=== PATIENT | female | born 1990 | race Hispanic/Latino ===

== ENCOUNTER 2019-10-14 05:09 | Emergency (ER) | payer BC ==
--- OUTSIDE RECORDS SUMMARY | 2019-10-14 05:12 | XMS REPORT | Continuity of Care Document ---
:[address] [facility] t Address [address] [place] [address] Care Team Providers Name Role Phone Tito ELLIS Attending Clinician Unavailable Pob1, Care Clinic Attending Clinician Unavailable Arsenio Mata MD Attending Clinician Doctor Unassigned, Name Attending Clinician Unavailable Pob, Lab Main Attending Clinician Unavailable Problems Condition Condition Condition Status Onset Resolution Last Treating Co mments Source Name Details Category Date Date Treatment Clinician Date Diabetes Diabetes Problem Active [facility] Sinusitis Sinusitis Problem Active [facility] Posterior Posterior Problem Active [facility] rhinorrhea [facility] Nasal Nasal Problem Active [facility] obstructio [facility] Headache Headache Problem Active [facility] Allergies, Adverse Reactions, Alerts Allergy Allergy Status Severity Reaction(s) Onset Inactive Treating Comm ents Source Name Type Date Date Clinician Hydrocod Allergy Active [facility] Morphine Allergy Active [facility] Tramadol Allergy Active [facility] Social History Smoking Status Start Date Stop Date Source Never Smoker [facility] Medications Ordered Filled Start Stop Current Ordering Indication Dosage Frequency Signature Comments Components Source Medication Medication Date Date Medication? Clinician (SIG) Name Name amoxicillin amoxicillin No 1 Q12H amoxicilli [facility] 875 mg 875 mg n 875 mg da tablet Take tablet Take tablet Medical 1 tablet 1 tablet Take 1 Group every 12 every 12 tablet hours by hours by every 12 oral route oral route hours by with meals with meals oral route for 12 for 12 with meals days. days. for 12 days. cefdinir cefdinir No cefdinir [facility] 300 mg 300 mg 300 mg da capsule capsule capsule Medica l Group Fiasp Fiasp No Fiasp [facility] FlexTouch FlexTouch FlexTouch da U-100 U-100 U-100 Medical Insulin 100 Insulin 100 Insulin Group unit/mL (3 unit/mL (3 100 mL) mL) unit/mL (3 subcutaneou subcutaneou mL) s pen s pen subcutaneo us pen fluticasone fluticasone No fluticason [facility] propionate propionate e da 50 50 propionate Medical mcg/actuati mcg/actuati 50 G roup on nasal on nasal mcg/actuat spray,suspe spray,suspe ion nasal nsion nsion spray,susp ension Tresiba Tresiba No Tresiba [facility] FlexTouch FlexTouch FlexTouch da U-200 U-200 U-200 Medical insulin 200 insulin 200 insulin Group unit/mL (3 unit/mL (3 200 mL) mL) unit/mL (3 subcutaneou subcutaneou mL) s pen s pen subcutaneo us pen Ventolin Ventolin No Ventolin [facility] HFA 90 HFA 90 HFA 90 da mcg/actuati mcg/actuati mcg/actuat Medical on aerosol on aerosol ion Yoselin up inhaler inhaler aerosol inhaler zolpidem 5 zolpidem 5 No zolpidem 5 [facility] mg tablet mg tablet mg tablet [facility] Vital Signs Vital Name Observation Time Observation Value Comments Source BP Diastolic 2019-02-10 00:00:00 75 mm[Hg] [facility] Height 2019-02-10 00:00:00 63 [in_i] [facility] BMI (Body Mass 2019-02-10 00:00:00 25.7 kg/m2 [facility]) Group BP Systolic 2019-02-10 00:00:00 120 mm[Hg] [facility] Body Weight 2019-02-10 00:00:00 145.1 [lb_av] [facility] Procedures Procedure Date / Time Performed Performing Clinician Sourc e CT, sinuses, w/o 2019-02-10 00:00:00 Carlito molina contrast Group Sinus Surgery [facility] Plan of Care Planned Activity Planned Date Details Comments Source Instructions [facility] Encounters Start End Encounter Admission Attending Care Care Encounter Source Date/Time Date/Time Type Type Clinicians Facility Department ID 2019-10-14 2019-10-14 Telephone DANIEL Francis [id number] 00:00:00 00:00:00 Den [facility] [id number] [facility] [id number] 2019-10-12 2019-10-12 Urgent Pob1, Acute [place] [id number] 13:16:55 13:36:55 [facility] [id number] [place] [id number] Professio [id number] [facility] 0[address] Office Building One 2019-07-21 2019-07-21 Telephone Esperanza [facility] [id number] 00:00:00 00:00:00 Won[place] [id number] [place] [id number] Professio [phone] [facility] 044 Building 2019-07-20 2019-07-20 Orders Doctor DANIEL [id number] 00:00:00 00:00:00 Only Unassigned, [facility] [id number] [facility] [id number] 2019-05-27 2019-05-27 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 Xi Adc [facility] [id number] 08:50:43 09:05:43 Visit Lab Main [place] [id number] [place] [id number] Professio [phone] [place] [address] Building 2019-05-27 2019-05-27 Orders Doctor DANIEL [id number] 00:00:00 00:00:00 Only Unassigned, [facility] [id number] [facility] [id number] 2019-05-18 2019-05-18 Office Esperanza [facility] [id number] 11:12:41 11:41:53 Visit [facility] [id number] [place] [id number] [place] [phone] nal 044 Office Building One 2019-02-10 2019-02-10 [facility] [place] [facility] [id number] 00:00:00 00:00:00 MD Nathan: [address] - [address], Otolaryngol [place], [facility] [address] , Ph. Results This patient has no known results.
--- OUTSIDE RECORDS SUMMARY | 2019-10-14 05:13 | XMS REPORT | Summary of Care ---
:[address] [facility] Address [address] [place] [address] Care Team Providers Name Role Phone Arsenio Mata MD Primary Care Provider Reason for Visit Reason Comments Results Encounter Details Date Type Department Care Team Description 10/14/2019 Telephone [facility] Den Francis, RHONDA Results [address] [id number] [place] [address] Allergies Active Allergy Reactions Severity Noted Date Comments Adhesive Hives 06/17/2011 Hydrocodone Itching 09/18/2010 Morphine Itching, Shortness of 12/12/2009 Breath Sulfa (Sulfonamide Itching 07/15/2014 Antibiotics) Tramadol Itching 05/28/2011 documented as of this encounter (statuses as of 10/14/2019) Medications Medication Sig Dispensed Refills Start Date End Date Status flash glucose sensor 1 Each every 14 2 Kit 5 08/03/2018 Active (FREESTYLE JARET 14 DAY (fourteen) days. SENSOR) KitIndications: Use as directed Uncontrolled type 1 with reader. diabetes mellitus with hyperglycemia fluticasone propionate Use 2 Sprays in 16 g 0 12/10/2018 Active 50 mcg/actuation nasal each nostril sprayIndications: Acute daily. bacterial bronchitis, Acute bacterial sinusitis, Acute laryngitis FIASP FLEXTOUCH U-100 inject under the 0 Active INSULIN SC skin. TRESIBA FLEXTOUCH U-100 inject under the 0 Active SC skin. BELSOMRA 10 mg Take 1 tablet by 10 tablet 0 05/04/2019 Active TabIndications: mouth at bedtime. Disorder of initiating and maintaining sleep, Anxiety escitalopram oxalate 10 Take 1 tablet by 30 tablet 5 0 Active mg tabletIndications: mouth every Anxiety morning. STOP SERTRALINE. traZODone 50 mg Take 0.5-1 30 tablet 5 05/18/2019 Ac tive tabletIndications: tablets by mouth Chronic insomnia at bedtime. documented as of this encounter (statuses as of 10/14/2019) Active Problems Problem Noted Date Anxiety 05/04/2019 Iron deficiency anemia due to chronic blood loss 09/15 SVT (supraventricular tachycardia) 07/10/2015 Overview: Dr. 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 documented as of this encounter (statuses as of 10/14/2019) Resolved Problems Problem Noted Date Resolved Date Fever 07/10/2015 05/04/2019 Acidosis 01/02/2015 01/03/2015 Diabetic acidosis 01/02/2015 05/04/2019 Depression 07/15/2014 01/03/2015 Allergic rhinitis 07/15/2014 01/03/2015 Overview: ICD10 Diagnosis Term [employer] Abnormal LFTs 07/15/2014 01/03/2015 Overview: 03/2012 Elevated LFTs 08/20/2012 01/02/2015 Morbidly obese 02/11/2012 08/20/2012 Type II or unspecified type diabetes mellitus without mentio n 12/12/2009 04/28/2010 of complication, uncontrolled documented as of this encounter (statuses as of 10/14/2019) Immunizations Name Administration Dates Next Due Influenza Virus Vaccine Quad IM 3+ YRS 01/29/2018 documented as of this encounter Social History Tobacco Use Types Packs/Day Years Used Date Never Smoker Smokeless Tobacco: Never Used Alcohol Use Drinks/Week oz/Week Comments No 1 Standard drinks or equivalent 1.0 social Sex Assigned at Date Recorded Not on file Job Start Date Occupation Industry Not on file Not on file Not on file Travel History Travel Start Travel End No recent travel history available. COVID-19 Exposure Response Date Recorded In the last month, have you been in contact with Yes 10/12/2019 1:24 PM CDT someone who was confirmed or suspected to have Coronavirus / COVID-19? documented as of this encounter Last Filed Vital Signs Not on filedocumented in this encounter Plan of Treatment Health Maintenance Due Date Last Done Comments VARICELLA VACCINES (1 of 2 - 1989 2-dose childhood series) PNEUMOCOCCAL 0-64 YEARS COMBINED 1994 SERIES (1 of 1 - PPSV23) LDL-C 1998 URINE MICROALBUMIN 1998 DTaP,Tdap,and Td Vaccines (1 - 1999 Tdap) FOOT EXAM 2006 PAP SMEAR 2009 HgA1C 07/03/2015 01/02/2015, 12/07/2012 CREATININE (SERUM) 10/03/2019 10/02/2018, 10/30/2017, 01/08/2016, Additional history exists Depression Screening 12/11/2019 12/10/2018 INFLUENZA VACCINE (Season Ended) 2019 01/29/2018 EYE EXAM 07/19/2020 07/20/2019 documented as of this encounter Results Not on filedocumented in this encounter Insurance Payer Benefit Plan / Subscriber ID Effective Dates Phone Addre ss Type Group [facility] [id number] 2014-[employer] PPO/POS [employer] [facility] [employer] EMPLOYEE PLAN t documented as of this encounter Advance Directives Type Date Recorded Patient Hand Mica Plate Layer Explanati on Advance Directives and Living Will Power of Cellular Equipment Repairer
--- OUTSIDE RECORDS SUMMARY | 2019-10-14 05:13 | XMS REPORT | Summary of Care ---
:1990 Author Organization [facility] - [facility] Address [address] [place] [address] Care Team Providers Name Role Phone Arsenio Mata MD Primary Care Provider Reason for Visit Reason Comments Chills Cough Shortness of Breath Pain Joint Pain Headache Vomiting DIZZY Encounter Details Date Type Department Care Team Description 10/12/2019 Urgent Care [facility] Family Carlos Arriola, AUTO HAULER [address] [address] Viral upper respiratory tract infection (Primary Dx); [place] [address], Acute Care Clinic Suspected Covid-19 Virus Infection [address] [place] [address] Allergies Active Allergy Reactions Severity Noted Date Comments Adhesive Hives 06/17/2011 Hydrocodone Itching 09/18/2010 Morphine Itching, Shortness of 12/12/2009 Breath Sulfa (Sulfonamide Itching 07/15/2014 Antibiotics) Tramadol Itching 05/28/2011 documented as of this encounter (statuses as of 10/12/2019) Medications Medication Sig Dispensed Refills Start Date [...] as of this encounter (statuses as of 10/12/2019) Active Problems Problem Noted Date Anxiety 05/04/2019 Iron deficiency anemia due to chronic blood loss 09/15 SVT (supraventricular tachycardia) 07/10/2015 Overview: Dr. 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 Claudy Juarez and documented as of this encounter (statuses as of 10/12/2019) Resolved Problems Problem Noted Date Resolved Date Fever 07/10/2015 05/04/2019 Acidosis 01/02/2015 01/03/2015 Diabetic acidosis 01/02/2015 05/04/2019 Depression 07/15/2014 01/03/2015 Allergic rhinitis 07/15/2014 01/03/2015 Overview: ICD10 Diagnosis Term Caseworker Intake Utility Abnormal LFTs 07/15/2014 01/03/2015 Overview: 03/2012 Elevated LFTs 08/20/2012 01/02/2015 Morbidly obese 02/11/2012 08/20/2012 Type II or unspecified type diabetes mellitus without mentio n 12/12/2009 04/28/2010 of complication, uncontrolled documented as of this encounter (statuses as of 10/12/2019) Immunizations Name Administration Dates Next Due Influenza [...] of this encounter Last Filed Vital Signs Vital Sign Reading Time Taken Comments Blood Pressure 113/80 10/12/2019 1:26 PM CDT Pulse 115 10/12/2019 1:26 PM CDT Temperature 37.4 C (99.3 F) 10/12/2019 1:26 PM CDT Respiratory Rate 17 10/12/2019 1:26 PM CDT Oxygen Saturation 99% 10/12/2019 1:26 PM CDT Inhaled Oxygen Concentration - - Weight 78.6 kg (173 lb 4 oz) 10/12/2019 1:26 PM CDT Height - - Body Mass Index 30.69 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 It's caused by a new (novel) coronavirus called SARS-CoV-2. There are many types of coronavirus. Coronaviruses are a very common cause of bronchitis. They may sometimes cause lung infection (pneumonia). Symptoms can range from mild to severe respiratory illness. These viruses are also found in some animals. COVID-19 was first found in people in [facility], in late 2018.COVID-19 is a rapidly-emerging infectious disease. This means thatscientists are actively researching it.There are information updates regularly. Public health officials are working to find the source. How the virus spreads is not yet fully understood, but it seems to spread and infect people fairly easily. Some people who have been infected in an area may be unsure how or where they became infected. The virus may be spread through droplets of fluid that a person coughs or sneezes into the air. It may be spread if you touch a surface with virus on it, such as a handle or object, and then touch your eyes, nose, or mouth. For the latest information, visit the CDC website at www.cdc.gov/coronavirus/2019-ncov. Or call 541-XAK-QAZA (836-368-8079). What are the symptoms of COVID-19? Some people have no symptoms or mild symptoms. Symptoms may appear 2 to 14 days after contact with the virus. Symptoms can include: Fever Coughing Trouble breathing What are possible complications from COVID-19? In many cases, this virus can cause infection (pneumonia) in both lungs. In some cases, this can cause . Certain people are at higher risk for complications. This includes older adults and people with serious chronic health conditions such as heart or lung disease or diabetes. How is COVID-19 diagnosed? Your healthcare provider will ask about your symptoms. He or she will also ask about your recent travel and contact with sick people. If your healthcare provider thinks you may have COVID-19, he or shewill work closely with your local health department on testing. Follow all instructions from your healthcare provider. COVID-19 is diagnosed by: Nose and throat swab. A cotton-tipped swab is wiped inside your nose or throat. This is done to check for viruses in your nasal mucus. Sputum culture. A small sample of mucus coughed from your lungs (sputum) is collected if you havea cough. It's checked for the virus. How is COVID-19 treated? There is currently no medicine to treat the virus. Treatment is done to help your body while it fights the virus. This is known as supportive care. Supportive care may include: Getting rest. This helps your body fight the illness. Staying hydrated. Drink 6 to 8 glasses of liquids every day. Good choices are water, sport drinks, soft drinks without caffeine, juices, tea, and soup. Taking pain medicine. These may include acetaminophen and ibuprofen. They are used to help ease pain and reduce fever. Follow your healthcare provider's instructions. For severe illness, you may need to stay in the hospital. Care during severe illness may include: IV (intravenous) fluids. These are given through a vein to help keep your body hydrated. Oxygen. Supplemental oxygen or ventilation with a breathing machine (ventilator) may be given. This is done so you get enough oxygen in your body. Are you at risk for COVID-19? You are at risk for infection if youve been to a place where people have been sick with this virus or if there are people with COVID-19 in your area. You are at risk if you: Recently traveled to an area with a COVID-19 outbreak Had contact with a sick person who recently traveled to an area with a COVID- 19 outbreak Had contact with a person who was diagnosed with or who may have COVID-19 How can COVID-19 be prevented? There is no vaccine yet. The best prevention is to not have contact with the virus. The CDC advises that people should not travel to areas where there are COVID-19 outbreaks right now for any reason that is not urgent. For the most current CDC travel advisories, visit the CDC website at www.cdc.gov/cor onavirus/2019-ncov/travelers. To help prevent spreading the infection, wash your hands often, or use an alcohol-based hand sandwich and drink cart operator. The CDC advises that you should not wear a facemask if you are not sick. Prepare and protect yourself from COVID-19: Wash your hands often with soap and clean, running water for at least 20 seconds. If you don't have access to soap and water, use an alcohol-based hand sandwich and drink cart operator often. Make sure it has at least 60% alcohol. Don't touch your eyes, nose, or mouth unless you have clean hands. As much as possible, don't touch "high-touch" public surfaces such as doorknobs. Don't shake hands. Clean home and work surfaces often with disinfectant. Cough or sneeze into a tissue, then throw the tissue into the trash. If you don't have tissues, cough or sneeze into the bend of your elbow. Stay informed about COVID-19 in your area. Follow local instructions about being in public. Be aware of events in your community that may be postponed or canceled such as school and sporting events.You may be advised not to attend public gatherings. You will be advised to stay about 6 feet from others as much as possible. This is called "social distancing." The CDC advises wearing a cloth face mask in public. During a public health emergency, medical face masks may be reserved for healthcare workers. You may need to make a cloth face mask of your own. You can do this using a bandana, T- shirt, or other cloth. The [facility] hasinstructions on how to make a mask. Check your home supplies. Consider keeping a 2-week supply of medicines, food, and other needed household items. Make a plan for childcare, work, and ways to stay in touch with others. Know who will help you ifyou get sick. Don't be around people who are sick. There is no evidence right now that animals spread SARS-CoV-2. But it's always a good idea to wash your hands after touching any animals. Don't touch animals that may be sick. Dont share eating or drinking utensils with sick people. Dont kiss someone who is sick. If you were in an area with COVID-19 in the last 14 days: Call your healthcare provider and follow all instructions. Your activities and where you go may be restricted for up to 2 weeks. You may be directed to stay home, or "self-quarantine." Take your temperature every morning and evening for at least 14 days. This is to check for fever.Keep a record of the readings. Watch for symptoms of the virus. Call your provider if you have symptoms. Call your provider first before going to any clinic or hospital. Stay home if you are sick for any reason. If you are sick with COVID-19 symptoms: Stay home. Call your healthcare provider and tell them you have symptoms of COVID-19. Do this before going to any hospital or clinic. Follow your provider's instructions. You may be advised to isolate yourself at home. This is called self-isolation . Dont panic. Keep in mind that other illnesses can cause similar symptoms. Stay away from work, school, and public places. Limit physical contact with family members. Limitvisitors. Don't kiss anyone or share eating or drinking utensils. Clean surfaces you touch with disinfectant. This is to help prevent the virus from spreading. Cough or sneeze into a tissue, then throw away the tissue in the trash. If you don't have tissues, cough or sneeze into the bend of your elbow. Wear a facemask only if you have symptoms If you need to go in to a hospital or clinic, expect that the healthcare staff will wear protective equipment such as masks, gowns, gloves, and eye protection. You may be put in a separate room. This is to prevent the possible virus from spreading. Tell the healthcare staff about recent travel. This includes local travel on public transport. Staff may need to find other people you have been in contact with. Follow all instructions the healthcare staff give you. If you have been diagnosed with COVID-19 Stay home. Dont leave your home unless you need to get medical care. Don't go to work, school,or public areas. Don't use public transportation or taxis. Follow all instructions from your healthcare provider. Call your healthcare providers office before going. They can prepare and give you instructions. This will help prevent the virus from spreading. If you need to go to a hospital or clinic, expect that the healthcare staff will wear protective equipment such as masks, gowns, gloves, and eye protection. You may be put in a separate room. This is to prevent the possible virus from spreading. Wear a face mask. This is to protect other people from your germs. If you are not able to wear a mask, your caregivers should. Stay away from other people in your home. Limit contact with pets and animals. Although there are no reports of pets getting sick with COVID-19, consider limiting contact with pets until more is known. Dont share household items or food. Cover your face with a tissue when you cough or sneeze. Throw the tissue away. Then wash your hands. Wash your hands often. If you are caring for a sick person: Follow all instructions from healthcare staff. Wash your hands often. Wear protective clothing as advised. Make sure the sick person wears a mask. If they can't wear a mask, don't stay in the same room with the person. If you must be in the same room, wear a facemask. Keep track of the sick persons symptoms. Clean surfaces, fabrics, and laundry thoroughly. Keep other people and pets away from the sick person. When to call your healthcare provider Call your healthcare provider right away: If youve recently traveled or have been in an area with COVID-19 and have symptoms If you have been diagnosed with COVID-19 and your symptoms are worse Date last modified: 07/26/2019 Michelle vela reviewed this educational content on 04/21/201919997279-2013 The [employer]. [address] [place] [id number]. All rights reserved. This information is not intended as a substitute for professional medical care. Always follow your healthcare professional's instructions. documented in this encounter Progress Notes Chris Wilkinson PA-C - 10/12/2019 1:20 PM CDT COVID-19 Screening Clinic: [facility] Patient Name: Lilibeth Sharif Date of : 1990 29 year old Primary Care Physician: Haritha Mata During this visit: Full PPE was used, mask, face shield, gown, and gloves Chief Complaint Chief Complaint Patient presents with Chills Cough Shortness of Breath Pain Joint Pain Headache Vomiting DIZZY HPI 2 days h/o chills, cough, sob, vomiting. Here for covid testing. Not sob now. Past Medical History / Immunizations Past Medical History: Diagnosis Date ADHD (attention deficit hyperactivity disorder) Anxiety 05/04/2019 Diabetes Insomnia 07/15/2014 Migraine headache PCOS (polycystic ovarian syndrome) SVT (supraventricular tachycardia) 2015 ablation August [address] 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 Michel--[facility] SINUS SURGERY PROC UNLISTED 2011 Allergies Allergies Allergen Reactions Adhesive Hives Hydrocodone Itching Morphine Itching and Shortness of Breath Sulfa (Sulfonamide Antibiotics) Itching Tramadol Itching Review of Systems Review of Systems Constitutional: Positive for chills. Negative for activity change and appetite change. Respiratory: Positive for shortness of breath (intermittent). Negative for chest tightness. Gastrointestinal: Positive for nausea and vomiting. Negative for abdominal pain. Musculoskeletal: Positive for myalgias. Negative for neck stiffness. Skin: Negative for pallor and rash. Neurological: Positive for headaches. Physical Exam BP 113/80 | Pulse 115 | Temp 37.4 C (99.3 F) | Resp 17 | Wt 173 lb 4 oz (78.6 kg) | SpO2 99% | BMI 30.69 kg/m Physical Exam Constitutional: She appears well-developed and well-nourished. HENT: Head: Normocephalic. Right Ear: Tympanic membrane and ear canal normal. Left Ear: Tympanic membrane and ear canal normal. Nose: Mucosal edema present. Mouth/Throat: Uvula is midline, oropharynx is clear and moist and mucous membranes are normal. Cardiovascular: Normal rate and regular rhythm. Pulmonary/Chest: Effort normal and breath sounds normal. Skin: Skin is warm and dry. Nursing note and vitals reviewed. Labs No results found for this or any previous visit (from the past 24 hour(s)). No results found. Orders and Treatments Orders Placed This Encounter Procedures COVID-19 (PCR MOLECULAR TESTING) Outpatient Encounter Medications as of 10/12/2019 Medication Sig TRESIBA FLEXTOUCH U-100 SC inject under the skin. escitalopram oxalate 10 mg tablet Take 1 tablet by mouth every morning. STOP SERTRALINE. traZODone 50 mg tablet Take 0.5-1 tablets by mouth at bedtime. BELSOMRA 10 mg Tab Take 1 tablet by mouth at bedtime. FIASP FLEXTOUCH U-100 INSULIN SC inject under the skin. fluticasone propionate 50 mcg/actuation nasal spray Use 2 Sprays in each nostril daily. flash glucose sensor (FREESTYLE JARET 14 DAY SENSOR) Kit 1 Each every 14 (fourteen) days. Use asdirected with reader. No results found for this visit on 10/12/19. Diagnosis Patient well appearing, NAD noted on exam Patient speaking in complete sentences on exam. Physical exam otherwise unremarkable Vital signs WNL Lilibeth was seen today for chills, cough, shortness of breath, pain, headache, vomiting and dizzy. Diagnoses and all orders for this visit: Suspected Covid-19 Virus Infection - COVID-19 (PCR MOLECULAR TESTING); Future - COVID-19 (PCR MOLECULAR TESTING) uri Disposition & Follow Up - Discussed likely viral diagnosis and treatment plan with pt. - pt advised on frequent effective handwashing - pt advised to increase fluid intake - advised to have the pt take OTC to treat symptoms. - Pt advised to administer Tylenol as per label recommendation as needed for pain or fever - AVS and Written/handout materials appropriate to problem and teaching provided. - advised to go to the nearest Emergency Department sooner for any new, worsening, persistent, or concerning symptoms - Patient verbalized understanding of all instructions EDUCATION: Handouts given: "What to do if you are sick with COVID-19" CDC information guide reviewed with the patient and handout given to patient Education given to self quarantine until results are back. Will notify patient with results. Patient states understanding and all questions answered. Plan of care, goals and medications discussed with patient. Patient voices understanding. Barriers to care: none Ability to manage care: good This visit did not involve counseling and coordination that comprised more than 50% of the visit time. Chris Wilkinson PA-C 10/12/2019 1:35 PM Mone Grimes MA - 10/12/2019 1:20 PM CDT Pt is c/o Chief Complaint Patient presents with Chills Cough Shortness of Breath Pain Joint Pain Headache Vomiting DIZZY All vitals taken. Allergies reviewed. All medications reviewed. Fall risk assessed. Pain 0/10. Accompanied by herself. Patient educated on plan of care for visit, swabbing technique, risks and benefits of test and length of time to receive results. Verbal consent obtained to perform test. CDC Fact Sheet for PatientsnCoV Diagnostic Panel dated 07/04/2019 provided. documented in this encounter Plan of Treatment Name Type Priority Associated Diagnoses Order S chedule COVID-19 (PCR MOLECULAR LAB Routine Suspected Covid-1 9 Virus Expected: 10/12/2019, TESTING) Infection Expires: 2020 Health Maintenance Due Date Last Done Comments [...] Results Not on filedocumented in this encounter Visit Diagnoses Diagnosis Viral upper respiratory tract infection - Primary Acute upper respiratory infections of un specified site Suspected Covid-19 Virus Infection documented in this encounter Insurance Payer Benefit Plan / Subscriber ID Effective Dates Phone Addre ss Type Group [facility] [id number] 2014-[place] PPO/POS [facility] EM[employer]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
[2019-10-14] MEDS ORDERED: ONDANSETRON 4 MG/2 ML VIAL ONE (06:27)
[2019-10-14] MEDS ORDERED: NA CHLORIDE 0.9% 2,000 ML ONE (06:27)
[2019-10-14 06:32] LABS: Absolute Lymphocytes (CBC) 2.2 K/uL (0.7-4.9); Basophils % 0.7 % (0-1.3); Hematocrit 40.6 % (36.0-45.0); Lymphocytes % 28.7 % (15.3-44.8); MPV 12.2 fL (7.6-11.3)
[2019-10-14 06:59] LABS: ALT/SGPT 20 U/L (12-78); AST/SGOT 9 U/L (15-37); Albumin 3.7 g/dL (3.4-5.0); Alkaline Phosphatase 107 U/L (45-117); BUN Blood Urea Nitrogen 16 mg/dL (7-18); Bicarbonate 25 mmol/L (21-32); Bilirubin Direct 0.1 mg/dL (0-0.2); Bilirubin Total 0.3 mg/dL (0.2-1.0); Glucose Level 246 mg/dL (74-106); Lipase 112 U/L (73-393); Magnesium 2.1 mg/dL (1.8-2.4); Potassium 3.8 mmol/L (3.5-5.1); Protein, Total 7.1 g/dL (6.4-8.2); Sodium Level 137 mmol/L (136-145); Troponin (Emerg Dept Use Only) < 0.02 ng/mL (0.0-0.045)
--- NOTE | 2019-10-14 07:05 | ER ---
Nurse's Notes [facility] Name: Lilibeth Sharif Age: 29 yrs Sex: Female : 1990 Arrival Date: 10/14/2019 Time: 05:11 Bed 2 Private MD: Diagnosis: Type 1 diabetes mellitus;Vomiting Presentation: 10/13 05:18 Chief complaint: Patient states: High blood sugar reading the last 3-4 days; vomiting lp1 that began 2 days ago; concerned about DKA, feeling short of breath at times. Coronavirus screen: Proceed with normal triage. Ebola Screen: No symptoms or risks identified at this time. Risk Assessment: Do you want to hurt yourself or someone else? Patient reports no desire to harm self or others. Onset of symptoms was October 14, 2019. 05:18 Method Of Arrival: Ambulatory lp1 05:18 Acuity: JAMISON 3 lp1 05:22 Initial Sepsis Screen: Does the patient meet any 2 criteria? No. Patient's initial lp1 sepsis screen is negative. Does the patient have a suspected source of infection? No. Patient's initial sepsis screen is negative. 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 - Social history:: Smoking status: Patient denies any tobacco usage or history of. - Family history:: not pertinent. Screenin:21 Abuse screen: Denies threats or abuse. Denies injuries from another. Nutritional lp1 screening: No deficits noted. Tuberculosis screening: No symptoms or risk factors identified. Fall Risk None identified. Assessment: 05:30 General: Appears in no apparent distress. comfortable, Behavior is calm, cooperative, rr5 appropriate for age. 05:30 Pain: Denies pain. Neuro: Level of Consciousness is awake, alert, obeys commands, rr5 Oriented to person, place, time, situation. Cardiovascular: Capillary refill < 3 seconds Patient's skin is warm and dry. Respiratory: Airway is patent Respiratory effort is even, unlabored, Respiratory pattern is regular, symmetrical. GI: Abdomen is round Reports nausea, vomiting, sugar high. : No signs and/or symptoms were reported regarding the genitourinary system. EENT: No signs and/or symptoms were reported regarding the EENT system. Derm: Skin is intact, is healthy with good turgor, Skin temperature is warm. Musculoskeletal: Circulation, motion, and sensation intact. Capillary refill < 3 seconds. 06:46 Reassessment: Patient appears in no apparent distress at this time. Patient is alert, rr5 oriented x 3, equal unlabored respirations, skin warm/dry/pink. awaiting for results. 07:10 General: Appears in no apparent distress. comfortable, well developed, Behavior is sv calm, cooperative, appropriate for age. Pain: Denies pain. Neuro: Level of Consciousness is awake, alert, obeys commands, Oriented to person, place, time, situation, Moves all extremities. Full function. Respiratory: Respiratory effort is even, unlabored, Respiratory pattern is regular, symmetrical. Derm: Skin is pink, warm \T\ dry. 07:53 Reassessment: Pt up for discharge but still receiving 2L NS boluses at this time, needs sv to finish fluids. 08:59 Reassessment: Patient appears in no apparent distress at this time. Patient and/or sv family updated on plan of care and expected duration. Pain level reassessed. Patient is alert, oriented x 3, equal unlabored respirations, skin warm/dry/pink. Patient states feeling better. Patient states symptoms have improved. Vital Signs: 05:22 BP 114 / 75; Pulse 94; Resp 18; Temp 98.6(TE); Pulse Ox 100% on R/A; Weight 74.84 kg lp1 (R); Height 5 ft. 3 in. (160.02 cm); Pain 0/10; 06:46 BP 100 / 80; Pulse 74; Resp 16; Pulse Ox 99% ; rr5 08:51 BP 94 / 60; Pulse 86; Resp 21; Pulse Ox 100% ; sv 05:22 Body Mass Index 29.23 (74.84 kg, 160.02 cm) lp1 ED Course: 05:11 Patient arrived in ED. cl3 05:19 Triage completed. lp1 05:21 Arm band placed on left wrist. lp1 05:29 Den Estrada MD is Attending Physician. michel 05:49 Jeremiah Armstrong, RN is Primary Nurse. rr5 06:00 Patient has correct armband on for positive identification. Placed in gown. Bed in low rr5 position. Call light in reach. Side rails up X2. gambling monitor on. Pulse ox on. NIBP on. 06:25 No provider procedures requiring assistance completed. Urine collected: clean catch rr5 specimen, clear. 06:35 Inserted saline lock: 20 gauge in left antecubital area, using aseptic technique. Blood rr5 collected. 06:43 EKG done, by ED staff. rr5 06:48 XRAY Chest (1 view) In Process Unspecified. EDMS 07:44 Primary Nurse role handed off by Jeremiah Armstrong, RN rr5 07:53 Mone Reyna, RHONDA is Primary Nurse. sv 08:59 IV discontinued, intact, bleeding controlled, No redness/swelling at site. Pressure sv dressing applied. Administered Medications: 06:40 Drug: NS 0.9% 1000 ml Route: IV; Rate: 1 bolus; Site: left antecubital; rr5 08:58 Follow up: Response: No adverse reaction; IV Status: Completed infusion; IV Intake: sv 1000ml 06:41 Drug: NS 0.9% 1000 ml Route: IV; Rate: 1 bolus; Site: left antecubital; rr5 08:58 Follow up: Response: No adverse reaction; IV Status: Completed infusion; IV Intake: sv 1000ml 06:41 Drug: Zofran (Ondansetron) 4 mg Route: IVP; Site: left antecubital; rr5 07:00 Follow up: Response: No adverse reaction sv Intake: 08:58 IV: 1000ml; Total: 1000ml. sv 08:58 IV: 1000ml; Total: 2000ml. sv Outcome: 07:04 Discharge ordered by . michel 08:59 Patient left the ED. sv 08:59 Discharged to home ambulatory. sv 08:59 Condition: stable 08:59 Condition: improved 08:59 Discharge instructions given to patient, Instructed on discharge instructions, follow up and referral plans. medication usage, Demonstrated understanding of instructions, follow-up care, medications, Prescriptions given X 1. Signatures: Dispatcher [employer] Mone Flores, RN RN Den Gonzalez MD MD cha Pena, Laura, RN RN lp1 Jeremiah Armstrong RN RN rr5 Rylie Alvarado cl3 Corrections: (The following items were deleted from the chart) 05:23 05:22 Pulse 83bpm; Resp 18bpm; Pulse Ox 100% RA; Temp 98.6F Temporal; 74.84 kg lp1 Reported; Height 5 ft. 3 in.; BMI: 29.2; Pain 0/10; lp1
--- NOTE | 2019-10-14 07:05 | EDPHYS ---
Physician Documentation [facility] Name: Lilibeth Sharif Age: 29 yrs Sex: Female : 1990 Arrival Date: 10/14/2019 Time: 05:11 Bed 2 Private MD: ED Physician Den Estrada HPI: 10/13 06:15 This 29 yrs old Female presents to ER via Ambulatory with complaints of Dka. michel 06:15 The patient presents with abdominal pain. Onset: The symptoms/episode began/occurred 2 michel day(s) ago. The symptoms do not radiate. Associated signs and symptoms: Pertinent positives: nausea and vomiting. The symptoms are described as crampy. Modifying factors: The symptoms are alleviated by nothing, the symptoms are aggravated by nothing. Severity of pain: At its worst the pain was mild in the emergency department the pain is unchanged. The patient has not experienced similar symptoms in the past. 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 - Social history:: Smoking status: Patient denies any tobacco usage or history of. - Family history:: not pertinent. ROS: 06:15 Constitutional: Negative for fever, chills, and weight loss, Eyes: Negative for injury, michel pain, redness, and discharge, ENT: Negative for injury, pain, and discharge, Neck: Negative for injury, pain, and swelling, Cardiovascular: Negative for chest pain, palpitations, and edema, Respiratory: Negative for shortness of breath, cough, wheezing, and pleuritic chest pain, Abdomen/GI: Negative for abdominal pain, nausea, vomiting, diarrhea, and constipation, Back: Negative for injury and pain, : Negative for injury, bleeding, discharge, and swelling, MS/Extremity: Negative for injury and deformity, Skin: Negative for injury, rash, and discoloration, Neuro: Negative for headache, weakness, numbness, tingling, and seizure, Psych: Negative for depression, anxiety, suicide ideation, homicidal ideation, and hallucinations, Allergy/Immunology: Negative for hives, rash, and allergies, Endocrine: Negative for neck swelling, polydipsia, polyuria, polyphagia, and marked weight changes, Hematologic/Lymphatic: Negative for swollen nodes, abnormal bleeding, and unusual bruising. Exam: 06:15 Constitutional: This is a well developed, well nourished patient who is awake, alert, michel and in no acute distress. Head/Face: Normocephalic, atraumatic. Eyes: Pupils equal round and reactive to light, extra-ocular motions intact. Lids and lashes normal. Conjunctiva and sclera are non-icteric and not injected. Cornea within normal limits. Periorbital areas with no swelling, redness, or edema. ENT: Nares patent. No nasal discharge, no septal abnormalities noted. Tympanic membranes are normal and external auditory canals are clear. Oropharynx with no redness, swelling, or masses, exudates, or evidence of obstruction, uvula midline. Mucous membranes moist. Neck: Trachea midline, no thyromegaly or masses palpated, and no cervical lymphadenopathy. Supple, full range of motion without nuchal rigidity, or vertebral point tenderness. No Meningismus. Chest/axilla: Normal chest wall appearance and motion. Nontender with no deformity. No lesions are appreciated. Cardiovascular: Regular rate and rhythm with a normal S1 and S2. No gallops, murmurs, or rubs. Normal PMI, no JVD. No pulse deficits. Respiratory: Lungs have equal breath sounds bilaterally, clear to auscultation and percussion. No rales, rhonchi or wheezes noted. No increased work of breathing, no retractions or nasal flaring. Abdomen/GI: Soft, non-tender, with normal bowel sounds. No distension or tympany. No guarding or rebound. No evidence of tenderness throughout. Back: No spinal tenderness. No costovertebral tenderness. Full range of motion. Skin: Warm, dry with normal turgor. Normal color with no rashes, no lesions, and no evidence of cellulitis. MS/ Extremity: Pulses equal, no cyanosis. Neurovascular intact. Full, normal range of motion. Neuro: Awake and alert, GCS 15, oriented to person, place, time, and situation. Cranial nerves II-XII grossly intact. Motor strength 5/5 in all extremities. Sensory grossly intact. Cerebellar exam normal. Normal gait. Psych: Awake, alert, with orientation to person, place and time. Behavior, mood, and affect are within normal limits. 06:58 ECG was reviewed by the Attending Physician. michel 07:02 Abdomen/GI: Inspection: abdomen appears normal, Bowel sounds: normal, Palpation: michel nontender, Liver: no appreciated palpable abnormalities, Hernia: not appreciated. 07:02 Musculoskeletal/extremity: DVT Exam: No signs of deep vein thrombosis. no pain, no swelling, no tenderness, negative Homans' sign noted on exam, no appreciated bluish discoloration, no erythema, no increased warmth. Vital Signs: 05:22 BP 114 / 75; Pulse 94; Resp 18; Temp 98.6(TE); Pulse Ox 100% on R/A; Weight 74.84 kg lp1 (R); Height 5 ft. 3 in. (160.02 cm); Pain 0/10; 06:46 BP 100 / 80; Pulse 74; Resp 16; Pulse Ox 99% ; rr5 08:51 BP 94 / 60; Pulse 86; Resp 21; Pulse Ox 100% ; sv 05:22 Body Mass Index 29.23 (74.84 kg, 160.02 cm) lp1 MDM: 05:29 Patient medically screened. [facility] 06:16 Data reviewed: vital signs, nurses notes, lab test result(s), EKG, radiologic studies, michel plain films. 10/13 06:10 Order name: Basic Metabolic Panel; Complete Time: 07:01 [facility] 10/13 06:10 Order name: CBC with Diff; Complete Time: 07:01 [facility] 10/13 06:10 Order name: LFT's; Complete Time: 07:01 [facility] 10/13 06:10 Order name: Magnesium; Complete Time: 07:01 [facility] 10/13 06:10 Order name: Troponin (emerg Dept Use Only); Complete Time: 07:01 [facility] 10/13 06:10 Order name: Lipase; Complete Time: 07:01 [facility] 10/13 06:10 Order name: XRAY Chest (1 view) [facility] 10/13 06:10 Order name: ABG [facility] 10/13 06:18 Order name: Glucose, Ancillary Testing; Complete Time: 07:01 EDMS 10/13 06:47 Order name: Urine Dipstick--Ancillary (enter results) 10/13 06:47 Order name: Urine --Ancillary (enter results) 10/13 06:10 Order name: EKG; Complete Time: 06:11 [facility] 10/13 06:10 Order name: Cardiac monitoring; Complete Time: 06:43 [facility] 10/13 06:10 Order name: EKG - Nurse/Tech; Complete Time: 06:42 [facility] 10/13 06:10 Order name: IV Saline Lock; Complete Time: 06:42 [facility] 10/13 06:10 Order name: Labs collected and sent; Complete Time: 06:42 [facility] 10/13 06:10 Order name: O2 Per Protocol; Complete Time: 06:42 [facility] 10/13 06:10 Order name: O2 Sat Monitoring; Complete Time: 06:42 [facility] 10/13 06:11 Order name: Urine Dipstick-Ancillary (obtain specimen); Complete Time: 06:18 [facility] 10/13 06:11 Order name: Urine Test (obtain specimen); Complete Time: 06:18 [facility] EC:58 Rate is 76 beats/min. Rhythm is regular. QRS [place] is Normal. OR interval is normal. QRS michel interval is normal. QT interval is normal. No Q waves. T waves are Normal. No ST changes noted. Clinical impression: Normal ECG and No evidence of ischemia. Interpreted by me. Reviewed by me. Administered Medications: 06:40 Drug: NS 0.9% 1000 ml Route: IV; Rate: 1 bolus; Site: left antecubital; rr5 08:58 Follow up: Response: No adverse reaction; IV Status: Completed infusion; IV Intake: sv 1000ml 06:41 Drug: NS 0.9% 1000 ml Route: IV; Rate: 1 bolus; Site: left antecubital; rr5 08:58 Follow up: Response: No adverse reaction; IV Status: Completed infusion; IV Intake: sv 1000ml 06:41 Drug: Zofran (Ondansetron) 4 mg Route: IVP; Site: left antecubital; rr5 07:00 Follow up: Response: No adverse reaction sv Disposition: 10/14/19 07:04 Discharged to Home. Impression: Type 1 diabetes mellitus, Vomiting. - Condition is Stable. - Discharge Instructions: Type 1 Diabetes Mellitus, Diagnosis, Adult, Nausea and Vomiting, Adult, Nausea and Vomiting, Adult, [id number], Diabetes Mellitus and Food, Type 1 Diabetes Mellitus, Self Care, Adult, Type 1 Diabetes Mellitus, Diagnosis, Adult, [id number], Type 1 Diabetes Mellitus, Self Care, Adult, [id number]. - Prescriptions for Zofran 4 mg Oral Tablet - take 1 tablet by ORAL route every 12 hours As needed; 20 tablet. - Medication Reconciliation Form, Thank You Letter, Antibiotic Education, Prescription Opioid Use form. - Follow up: Private Physician; When: 2 - 3 days; Reason: Recheck today's complaints, Continuance of care, Re-evaluation by your physician. - Problem is new. - Symptoms have improved. Signatures: Dispatcher [employer] EDMone Gomez RN RN sv Anderson, Corey, MD MD cha Pena, Laura RN RN lp1 Jeremiah Armstrong RN RN rr5 Corrections: (The following items were deleted from the chart) 08:59 07:04 10/14/2019 07:04 Discharged to Home. Impression: Type 1 diabetes mellitus; sv Vomiting. Condition is Stable. Forms are Medication Reconciliation Form, Thank You Letter, Antibiotic Education, Prescription Opioid Use. Follow up: Private Physician; When: 2 - 3 days; Reason: Recheck today's complaints, Continuance of care, Re-evaluation by your physician. Problem is new. Symptoms have improved. michel
[2019-10-14 07:18] LABS: Blood Gas Oxyhemoglobin 95.9 % (94-97); Blood O2 Saturation 97.9 % (92-98.5)
[2019-10-14 08:25] LABS: Urine Blood NEGATIVE (NEG); Urine Glucose 2+ (NEG); Urine Protein TRACE (NEG); Urine pH 7.5 (5.0-7.0)
--- NOTE | 2019-10-14 09:02 | RAD REPORT ---
EXAM DESCRIPTION: RAD - Chest Single View - 10/14/2019 6:47 am CLINICAL HISTORY: ABDOMINAL DISTENTION Chest pain. COMPARISON: CHEST SINGLE VIEW dated 12/07/2010 FINDINGS: Portable technique limits examination quality. The lungs are grossly clear. The heart is normal in size. No displaced fractures. IMPRESSION: No acute intrathoracic process suspected.
[2019-10-14 09:30] VITALS: TEMP 98.6
[2019-10-14 09:33] VITALS: BP 94/60; O2SAT 100
--- NOTE | 2019-10-15 06:50 | EKG ---
Test Date: 2019-10-14 Test Time: 06:38:08 Yam Curer: RR MEASUREMENT RESULTS: Intervals: Rate: 76 IA: 140 QRSD: 84 QT: 376 QTc: 423 [place]: P: 66 IA: 140 QRS: 91 T: 54 INTERPRETIVE STATEMENTS: Normal sinus rhythm Rightward axis Borderline ECG Compared to ECG 10/30/2015 09:24:50 Right-axis deviation now present Sinus tachycardia no longer present Electronically Signed On 10-15-19 06:48:07 CDT by Priyank Suarez
== END 2019-10-14 08:59 | disposition home or self-care (01) ==
LOC: ER 05:09
DX: R11.2 Nausea with vomiting, unspecified (principal); E10.9 Type 1 diabetes mellitus without complications; Z79.4 Long term (current) use of insulin; Z88.2 Allergy status to sulfonamides; Z88.5 Allergy status to narcotic agent
CPT/HCPCS: 96361; 93005; 85025; 80048; 36415; 83735; 81025; 82947; 80076; 81003; 84484; 83690; 71045; 82805; 96374; 99284; J7030; J2405

== ENCOUNTER 2020-07-27 07:24 | Emergency (ER) | payer BC ==
--- OUTSIDE RECORDS SUMMARY | 2020-07-27 07:27 | XMS REPORT | Continuity of Care Document ---
:1990 Author Organization [facility] t Address [address] [place] [address] Care Team Providers Name Role Phone Doctor Unassigned, Name Attending Clinician Unavailable Pob, Lab Main Attending Clinician Unavailable Provider, Urgent Care Attending Clinician Unavailable Only, Test Attending Clinician Unavailable Esperanza VELASCO, A Attending Clinician Payers Payer Name Policy Type Policy Number Effective Date Expiration Date S ource Problems Condition Condition Condition Status Onset Resolution Last Treating Co mments Source Name Details Category Date Date Treatment Clinician Date General General Problem Active [place] finding of Finding of 10-19 [facility] Housekeep observatio Observatio 00:00: Pr actic n of n of 00 e patient Patient Finding Finding Problem Active [place] related to Related to 05-20 [facility] sleep Sleep 00:00: Practic 00 e Psoriasis Psoriasis Problem Active 2017-04 Luan gillian 04-21 Family 00:00: Practic 00 e Overweight Overweight Problem Active [place] [facility] 6-22 Family 00:00: Practic 00 e Hypoglycem Hypoglycem Problem Active 2016-04 [facility] ia ia 0-10 Family 00:00: Practic 00 e Vitamin D Vitamin D Problem Active 2016-04 Luan french deficiency Deficiency 0-10 Fa anjelica 00:00: Practic 00 e Megaloblas Megaloblas Problem Active 2016-04 [facility] tic anemia tic Anemia 0-10 Fa anjelica due to Due to 00:00: Practic vitamin Vitamin 00 e B>12< B>12< deficiency Deficiency Anemia Anemia Problem Active 2016-04 Village 0-10 Family 00:00: Practic 00 e Insulin Insulin Problem Active 2016-[address] [facility] pump Pump 0-10 Family present Present 00:00: Practic 00 e Long-term Long-term Problem Active 2016-04 Luan french current Current 0-10 Family use of Use of 00:00: Practic insulin Insulin 00 e Cardiovasc Cardiovasc Problem Active 2016-04 [place] jewel holloway 0-10 Family measuremen Measuremen 00:00: Pr actic t - t - 00 e finding Finding Clinical Clinical Problem Active 2016-04 Feliciano russel finding Finding 0-10 Family 00:00: Practic 00 e Type 1 Type 1 Problem Active 2016-[address] [facility] diabetes Diabetes 0-10 Family mellitus Mellitus 00:00: Practi c without without 00 e complicati Complicati on on Diabetes Diabetes Problem Active [place] mellitus [...] ents Source Name Type Date Date Clinician Sulfa DA Active U 2019-04 [facility] (Sulfona -16 [facility] Antibiot [facility] [facility] [place] morphine DA Active U 2019-04 [facility] -[facility] [place] hydrocod DA Active U 2019-04 [facility] one -16 [facility] 00[facility] [place] fluconaz DA Active U 2019-04 [facility] ole -16 [facility] [place] tramadol DA Active U 2019-04 [facility] 1-16 [facility] [place] adhesive DA Active MO 2017- [facility] 4-20 [facility] [place] Sulfa DA Active OR [facility] (Sulfona 4-18 [facility] mide 00:00: [facility]ospita Antibiot 00 l of ics) [place] morphine DA Active SV 2017- [facility] 4-18 [facility] 00:[facility]: [facility] [place] hydrocod DA Active OR [facility] one 4-18 [facility] 00:[facility]: [facility] [place] tramadol DA Active OR 2016- [facility] 4-18 [facility] [place] Morphine Allergy Active [place] [facility] Tramadol Allergy Active [place] [facility] Hydrocod Allergy Active Hives [place] one to Family substanc Practic e e MORPHINE Allergy Active [place] SULFATE to Family substanc Practic e e Sulfacet Allergy Active [facility]ives [place] amide to Family substanc Practic e e TRAMADOL Allergy Active [facility] HCL to Family substanc Practic e e Trulicit Allergy Active Village y to Family substanc Practic e e Social History Smoking Status Start Date Stop Date Source Never Smoker [facility] Family P ractice Medications Ordered Filled Start Stop Current Ordering Indication Dosage Frequency Signature Comments Components Source Medication Medication Date Date Medication? Clinician (SIG) Name Name cephalexin cephalexin No cephalexin [facility] 500 mg 500 mg 500 mg Family capsule capsule capsule Practi c e DEX[facility] [address] CGM CGM CGM Family Practic e Dex[facility] 3device [address] Sensor Sensor (s) Sensor Family device Take device Take device Practic 3 devices 3 devices Take 3 e every month every month devices by miscell. by miscell. every route. route. month by miscell. route. [facility] [address] Transmitter Transmitter Transmitte Family device device r device Practic e diclofenac diclofenac No diclofenac [facility] sodium 75 sodium 75 sodium 75 Family mg mg mg Practic tablet,lucy tablet,lucy tablet,del e yed release yed release ayed release escitalopra escitalopra No escitalopr [facility] m 10 mg m 10 mg am 10 mg Famil y tablet tablet tablet Practic e Fiasp U-100 Fiasp U-100 No Fiasp [facility] Insulin 100 Insulin 100 U-100 Family unit/mL unit/mL Insulin Practi c subcutaneou subcutaneou 100 e s solution s solution unit/mL Inject 80 Inject 80 subcutaneo units every units every us day by day by solution subcutaneou subcutaneou Inject 80 s route as s route as units directed. directed. every day by subcutaneo us route as directed. fluticasone fluticasone No fluticason [facility] propionate propionate e Fam arthur 50 50 propionate Practic mcg/actuati mcg/actuati 50 e on nasal on nasal mcg/actuat spray,suspe spray,suspe ion nasal nsion nsion spray,susp ension Moni 24 Moni 24 No Moni [address] [facility] Fe 1 mg-20 Fe 1 mg-20 Fe 1 mg-20 Family mcg (24)/75 mcg (24)/75 mcg P ractic mg (4) mg (4) (24)/75 mg e tablet tablet (4) tablet ibuprofen ibuprofen No ibuprofen [facility] 600 mg 600 mg 600 mg Family tablet tablet tablet Practic e Injectafer Injectafer No Injectafer [facility] Family Practic e methocarbam methocarbam No methocarba [facility] ol 500 mg ol 500 mg mol 500 mg Family tablet tablet tablet Practic e Ozempic Ozempic No .5mg Q1W Ozempic Vill[place] e 0.25 mg or 0.25 mg or 0.25 mg or Family 0.5 mg (2 0.5 mg (2 0.5 mg (2 Practic mg/1.5 mL) mg/1.5 mL) mg/1.5 mL) e subcutaneou subcutaneou subcutaneo s pen s pen us pen injector injector injector Inject 0.5 Inject 0.5 Inject 0.5 mg every mg every mg every week by week by week by subcutaneou subcutaneou subcutaneo s route. s route. us route. sertraline sertraline No sertraline [facility] 25 mg 25 mg 25 mg Family tablet tablet tablet Practic e t:slim X2 t:slim X2 No t:slim X2 [facility] subcutaneou subcutaneo Family s cartridge s cartridge us P ractic cartridge e Taclonex Taclonex No Taclonex Luan gillian 0.005 0.005 0.005 Family %-0.064 % %-0.064 % %-0.064 % Practic topical topical topical e ointment ointment ointment APPLY TO APPLY TO APPLY TO THE THE THE AFFECTED AFFECTED AFFECTED AREA(S) BY AREA(S) BY AREA(S) BY TOPICAL TOPICAL TOPICAL ROUTE ONCE ROUTE ONCE ROUTE ONCE DAILY DAILY DAILY terconazole terconazole No terconazol [facility] 0.8 % 0.8 % e 0.8 % [facility] vaginal vaginal vaginal Practi c cream cream cream e tinidazole tinidazole No tinidazole [facility] 500 mg 500 mg 500 mg Family tablet tablet tablet Practic e Tresiba Tresiba No Tresiba [place] e FlexTouch FlexTouch FlexTouch Family U-200 U-200 U-200 Practic insulin 200 insulin 200 insulin e unit/mL (3 unit/mL (3 200 mL) mL) unit/mL (3 subcutaneou subcutaneou mL) s pen GIve s pen GIve subcutaneo 28 units in 28 units in us pen AM and AM and GIve 28 increase as increase as units in directed: directed: AM and TDD 50 TDD 50 increase as directed: TDD 50 [facility] 10set(s [facility] Infusion Infusion ) Infusion Fam arthur Set 23" Set 23" Set 23" Practi c Take 10 Take 10 Take 10 e sets every sets every sets every month by month by month by miscell. miscell. miscell. route. route. route. Vitamin D Vitamin D No Vitamin D [facility] Family Practic e Zofran 4 mg Zofran 4 mg No 2 BID Zofran 4 Village tablet Take tablet Take mg tablet Family 2 tablets 2 tablets Take 2 Pra ctic twice a day twice a day tablets e by oral by oral twice a route. route. day by oral route. acetaminoph acetaminoph No acetaminop [place] en 300 en 300 hen 300 Family mg-codeine mg-codeine mg-codeine Practic 30 mg 30 mg 30 mg e tablet tablet tablet Baqsimi 3 Baqsimi 3 No 1spray( Baqsimi 3 Village mg/actuatio mg/actuatio s) mg/actuati Family n nasal n nasal on nasal Pract ic spray Take spray Take spray Take e 1 spray as 1 spray as 1 spray as needed by needed by needed by nasal nasal nasal route. route. route. BD BD No 5needle Q1D BD Village Ultra-Fine Ultra-Fine (s) Ultra-Fine Family Dorita Pen Dorita Pen Dorita Pen Pra ctic Needle 32 Needle 32 Needle 32 e gauge x gauge x gauge x " Take " Take " Take 5 needles 5 needles 5 needles every day every day every day by miscell. by miscell. by route as route as miscell. directed. directed. route as directed. amoxicillin amoxicillin No 1 Q12H amoxicilli [place] [...] mg tablet mg tablet [facility] Immunizations Ordered Immunization Filled Immunization Date Status Commen ts Source Name Name SARS-COV-2 SARS-COV-2 2020-05-22 Completed [facility] (COVID-19) vaccine, (COVID-19) vaccine, 00:00:00 Practice UNSPECIFIED UNSPECIFIED influenza, influenza, 2020-01-20 Completed [facility] injectable, injectable, 00:00:00 Practice quadrivalent quadrivalent tetanus toxoid, tetanus toxoid, 2015-04-21 Completed [facility] Family adsorbed adsorbed 00:00:00 Practice Vital Signs Vital Name Observation Time Observation Value Comments Source BP Diastolic 2020-07-14 00:00:00 77 mm[Hg] [facility] Height 2020-07-14 00:00:00 63 [in_i] [facility] BMI (Body Mass 2020-07-14 00:00:00 32.8 kg/m2 [facility] Family Index) Practice BP Systolic 2020-07-14 00:00:00 108 mm[Hg] [facility] Body Weight 2020-07-14 00:00:00 185 [lb_av] [facility] BP Diastolic 2020-04-11 00:00:00 68 mm[Hg] [facility] Height 2020-04-11 00:00:00 63 [in_i] [facility] BMI (Body Mass 2020-04-11 00:00:00 31.4 kg/m2 [facility] e Family Index) Practice BP Systolic 2020-04-11 00:00:00 118 mm[Hg] [facility] Body Weight 2020-04-11 00:00:00 177 [lb_av] [facility] BP Diastolic 2019-02-10 00:00:00 75 mm[Hg] [facility] Height 2019-02-10 00:00:00 63 [in_i] [facility] BMI (Body Mass 2019-02-10 00:00:00 25.7 kg/m2 [facility] Index) Group BP Systolic 2019-02-10 00:00:00 120 mm[Hg] [facility] Body Weight 2019-02-10 00:00:00 145.1 [lb_av] [facility] Procedures Procedure Date / Time Performing Clinician Source Performed Hysterectomy (Total) 2019-06-20 00:00:00 [facility] CT, sinuses, w/o 2019-02-10 00:00:00 [facility] Laparoscopic Sleeve 2015-09-20 00:00:[address] [facility] Gastrectomy Practice Sinus Surgery Carlito Gu l Group Plan of Care Planned Activity Planned Date Details Comments Source Diagnostic Test 2020-07-14 hemoglobin A1C, Jose L Palma amily Pending 00:00:00 fingerstick [code = Practice hemoglobin A1C, fingerstick] Diagnostic Test 2020-07-14 glucose, Jose L Fami ly Pending 00:00:00 fingerstick, blood Practice [code = glucose, fingerstick, blood] Diagnostic Test 2020-07-14 microalbumin/creatin Vill age Family Pending 00:00:00 ine, mass ratio, Practice urine [code = microalbumin/creatin ine, mass ratio, urine] Diagnostic Test 2020-07-14 lipid panel, serum [place] [facility] Family Pending 00:00:00 [code = lipid panel, Practic e serum] Diagnostic Test 2020-07-14 CMP, serum or plasma [facility] age Family Pending 00:00:00 [code = CMP, serum Practice or plasma] Diagnostic Test 2020-07-14 CBC w/ auto diff [facility] Pending 00:00:00 [code = CBC w/ auto Practice diff] Diagnostic Test 2020-07-14 TSH, serum or plasma [facility] Family Pending 00:00:00 [code = TSH, serum Practice or plasma] Diagnostic Test 2020-07-14 T4, free, serum [facility] Louie hermosillo Pending 00:00:00 [code = T4, free, Practice serum] Future Appointment 2020-10-14 Claudy Grey [facility] mague Family 00:00:[id number]; [address], [place] [address] Instructions Carlito rizo Group Encounters Start End Encounter Admission Attending Care Care Encounter Source Date/Time Date/Time Type Type Clinicians Facility Department ID 2020-07-25 2020-07-25 Orders Doctor SANCHEZ [id number] 00:00:00 00:00:00 Only Unassigned, MADHU [id number] [place] [facility] [id number] 2020-07-24 2020-07-24 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 [id number] 14:03:59 14:18:59 Visit Lab Main [place] [id number] [place] [id number] Professio [phone] [facility] 353 Building 2020-07-14 2020-07-14 Claudy [facility] [place] - [id number] V illage 00:00:00 00:00:[address] [facility] Family [facility] Practi edith VELASCO: [id number] [facility], [address], [place] [address] , Ph. 2020-05-28 2020-05-28 Urgent Provider, [facility] [id number] 17:04:02 17:24:02 Care [facility] [id number] Care [place] [id number] Professio [phone] [place] [address] Office [address] One 2020-05-15 2020-05-15 Fish Hatchery Worker Xi [facility] [id number] 15:04:50 15:19:50 Visit Lab Main [place] [id number] [place] [id number] Professio [phone] [facility] 353 [facility] 2020-05-15 2020-05-15 Orders Doctor DANIEL [id number] 00:00:00 00:00:00 Only Unassigned, MADHU [id number] [place] [facility] [id number] [id number] 2020-05-05 2020-05-05 Laboratory Only, [facility] [id number] 14:37:30 14:52:30 Only Test [place] [id number] [place] [id number] [place] [phone] 353 2020-04-11 2020-04-11 Claudy [facility] [place] - [id number] V illage 00:00:00 00:00:[address] [facility] Family [facility] Pract[facility] edith VELASCO: [id number] [facility], [place] [address], [place] [address] , Ph. 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 1.2.840.114 [id number] 08:33:57 08:48:57 Visit Lab Main [place] [id number] [place] [id number] Professio [phone] [address] 2020-02-01 2020-02-01 Orders Doctor DANIEL [id number] 00:00:00 00:00:00 Only Unassigned, MADHU [id number] [facility] [id number] [id number] [id number] 2020-01-13 2020-01-[address] [facility] [id number] 14:54:12 15:28:24 Visit [facility] [id number] [place] [id number] Professio [phone] [place] [address] Office [address] One 2020-01-03 2020-01-[address] [facility] [id number] 13:16:48 14:12:27 Visit [facility] [id number] [place] [id number] Professio [phone] [place] [address] Office Building One 2019-02-10 2019-02-10 Timmy [facility] [place] - [id number] [facility] 00:00:00 00:00:00 MD Nathan: [address] Group [facility] - [address], Otolaryngol [facility] [address] , Ph. Results Test Description Test Time Test Comments Results Result Comments Source ENDOMETRIUM,BIOPSY 2020-03-09 16:42:00 Test Item Value Reference Range Interpretation Comme nts ENDOMETRIUM,BIOPSY RUN DATE: (test code = 03/09/20 [facility] PAGE 1 RUN TIME: 538 ENDOMETBX) Specim en Inquiry RUN USER: INTERFACE PATIENT: SIDNEY ROBERTSON LOC: AIMEE #: [id number] AGE/SX: ROOM: [facility] RE03/07/20REG DR: Mikki Scott MD : 86 BED: A DIS: STATUS: DIS Jack TLOC: SPEC #: [id number] RECD: STATUS: CHELSEA HAWKINS #: [id number] EARLE: 03/08/20- SUBM DR: Mikki Scott MD ENTERED: 03/08/20 SP TYPE: ENDOMETBX [facility] DR: ORDERED: LEVEL IV CODES: D10907 - ENDOMETRIUM, NO PROCEDURES: LEVEL IV (Incomplete) TISSUES: ENDOMETRIUM, NOS - MULTIPLE SPECIMEN CLINICAL HISTORY 29 year old, pelvic pain (k r) FINAL DIAGNOSIS Left anterior culdesac endometriosis, excision: peritoneal tissue with focal fibrosis Left pelvic sidewall endometriosis #1, excision: endometrios is Left pelvic sidewall endometriosis #2, excision: endometriosis Left joe rosacral endometriosis, excision: endometriosis Posterior cervix endometriosis, 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 Right pelvic sidewall endometriosis, excision: endometrios is Uterus, bilateral fallopian tubes, hysterectomy and bilateral salpingectomy: cervix - chronic papillary endocervicitis and parakeratosis - no dysplasia or malignancy iden tified endometrium - benign, weakly proliferative myometrium - no significant pathologic alteration uterine serosa - benign fibrous adhesions right and left fallopian tubes - no significant pathologic alteration CPT code(s): 01959 x6, 78030 [facility] CONTINUED ON NEXT PAGE RUN DATE: 03/09/20 [facility] PAGE 2 RUN TIME: 1751 Specimen Inquiry RUN USER: INTERFACE SPEC #: [id number] PATIENT: SIDNEY ROBERTSON #[id number] (Continued) -- GROSS DESCRIPTION ANATOMIC SOURCE OF TISSUE (per Requisition): 1. Left anterior culdesac endometriosis 2. Left pelvic sidewall endometriosis #1 3. Left pelvic sidewall endometriosis #2 4. Left uterosacral endometriosis 5. Posterior cervix endometriosis 6. Right pelvic sidewall endome triosis 7. Uterus, cervix, bilateral fallopian tubes Each specimen is labeled with the patient's name and medical record number. Specimen #1 is designated "left anterior cu ldesac endometriosis" and consists of two yellow soft tissues measuring 0.4 cm each. The tissues ar e submitted in toto in A1. Specimen #2 is designated "left pelvic sidewall endometriosis #1" a nd consists of a 2 x 1 x 0.5 cm barber-ramírez soft tissue. The tissue is submitted in toto in B1. Specimen #3 is designated "left pelvic sidewall endometriosis #2" and consists of a 1 x 0.7 x 0. 2 cm barber-ramírez soft tissue. The tissue is submitted in toto in C1. Specimen #4 is designated "l eft uterosacral endometriosis" and consists of two barber-yellow soft tissues measuring 1 and 1.1 cm. The tissues are submitted in toto in D1. Specimen #5 is designated "posterior cervix endometriosis" and consists of a 0.5 cm barber- yellow soft tissue. The tissue is submitted in toto in E1. Specimen #6 is designated "right pelvic sidewall endometriosis" and consists of a 3.5 x 1.5 x 0.6 cm white-ramírez soft tissue. The tissue is sectioned and entirely sub mitted in F1. Specimen #7 is designated "uterus, cervix, bilateral fallopian tubes" and consist s of an 85 gm, 7 x 4.5 x 4 cm uterus with cervix (2.5 x 2.5 cm with a 0.5 cm ovoid os) and bilat eral tubes (5.5 x 0.7 cm and 4.5 x 0.7 cm). The serosa is barber-pink with pink-purple adhesions and attached barber-yellow fatty tissue. The specimen is bivalved to reveal a 3.2 x 1.4 cm barber-pi nk endometrial cavity. The endometrial thickness averages 0.1 cm. The myometrium is barber-pink with a 1.5 cm average thickness. The endocervix is barber-pink. The ectocervix is white-pink and dull. The right fallopian tube is pink- purple with fimbriae. Sectioning reveals a pinpo int lumen. The left fallopian tube is pink- purple with fimbriae. Sectioning reveals a pinpoin t lumen. Master [address] Security sections are submitted as follows: CONTINUED ON NEXT PAGE RUN DATE: 03/09/20 [facility] PAGE 3 RUN TIME: 1750 Specimen Inquiry RUN USER: INTERFACE SPEC #: [id number] PATIENT: SIDNEY ROBERTSON #[id number] (Continued) -- GROSS DESCRIPTION (Continued) G1 - serosal adhesions and fatty tissue G2 - anterior cervix G3 - poste rior cervix G4 - anterior endometrium G5 - posterior endometrium G6 - right fallopian tube G7 - left fallopian tube ethel /shelly 03/08/20 Signed Mariam Aparicio MD 03/09/20 1642 END OF REPORT CBC W/AUTO [id number] 06:58:00 Test Item Value Reference Range Interpretation Comments WHITE BLOOD CELL (test code = WBC) 10.1 K/mm3 6.6-12.1 RED BLOOD CELL (test code = RBC) 3.77 M/mm3 3.45-5.01 N HEMOGLOBIN (test code = HGB) 11.5 g/dL 10.7-13.9 N HEMATOCRIT (test code = HCT) 35.1 % 32.1-42.1 N MEAN CELL VOLUME (test code = MCV) 93 fL 84.1-94.8 N MEAN CELL HGB (test code = MCH) 30.5 pg 27-35 N MEAN CELL HGB CONCETRATION (test 32.8 gm/dL 32.2-34.1 N code = MCHC) RED CELL DISTRIBUTION WIDTH (test 12.1 % 12.4-16.5 L code = RDW) PLATELET COUNT (test code = PLT) 148 K/mm3 133-385 N MEAN PLATELET VOLUME (test code = 13.9 fl 9.1-12.7 H MPV) NEUTROPHIL % (test code = NT%) 74.7 % 56.5-79.4 N LYMPHOCYTE % (test code = LY%) 15.5 % 14.3-34.3 N MONOCYTE % (test code = MO%) 7.0 % 5.1-10.4 N EOSINOPHIL % (test code = EO%) 1.8 % 0.1-3.0 N BASOPHIL % (test code = BA%) 0.6 % 0.1-1.0 N NEUTROPHIL # (test code = NT#) 7.5 K/mm3 LYMPHOCYTE # (test code = LY#) 1.6 K/mm3 MONOCYTE # (test code = MO#) 0.7 K/mm3 EOSINOPHIL # (test code = EO#) 0.18 K/mm3 BASOPHIL # (test code = BA#) 0.1 K/mm3 RBC MORPHOLOGY REQUIRED (test code NORMAL NORMAL = RBCM) PLATELET MORPHOLOGY REQUIRED (test NORMAL NORMAL code = PLTMR) [id number] 06:50:00 Test Item Value Reference Range Interpretation Comments GLUBED (test code = GLUBED) 130 mg/dL 65-110 H [id number] 23:39:00 Test Item Value Reference Range Interpretation Comments GLUBED (test code = GLUBED) 266 mg/dL 65-110 H [id number] 17:06:00 Test Item Value Reference Range Interpretation Comments GLUBED (test code = GLUBED) 219 mg/dL 65-110 H [id number] 14:17:00 Test Item Value Reference Range Interpretation Comments GLUBED (test code = GLUBED) 135 mg/dL 65-110 H [id number] 09:59:00 Test Item Value Reference Range Interpretation Comments GLUBED (test code = GLUBED) 110 mg/dL 65-110 N AG HEPATITIS B [id number] 14:47:00 Test Item Value Reference Range Interpretation Comments AG HEPATITIS B SURFACE (test code NONREACTIVE NONREACTIVE = HBSAG) IS CONSENT FORM SIGNED FOR HIV TESTING? YAB HEPATITIS C [id number] 14:47:00 Test Item Value Reference Range Interpretation Comments AB HEPATITIS C (test code = NONREACTIVE NONREACTIVE HCVAB) SIGNAL TO CUTOFF (test code = 0.09 <0.80 N CUTOFF) IS CONSENT FORM SIGNED FOR HIV TESTING? YAB HIV 1 14:47:00 Test Item Value Reference Range Interpretation Comments AB HIV 1 2 (test NONREACTIVE NONREACTIVE [facility] by [facility] code = [id number]) 4th Gen HIV Ag/Ab Combo Screen IS CONSENT FORM SIGNED FOR HIV TESTING? YAG HEPATITIS B [id number] 14:15:00 Test Item Value Reference Range Interpretation Comments AG HEPATITIS B SURFACE (test code NONREACTIVE NONREACTIVE = HBSAG) IS CONSENT FORM SIGNED FOR HIV TESTING? YAB HEPATITIS C [id number] 14:15:00 Test Item Value Reference Range Interpretation Comments AB HEPATITIS C (test code = HCVAB) NONREACTIVE SIGNAL TO CUTOFF (test code = CUTOFF) <0.80 IS CONSENT FORM SIGNED FOR HIV TESTING? YAB HIV 1 14:15:00 Test Item Value Reference Range Interpretation Comments AB HIV 1 2 (test code = [id number]) NONREACTIVE IS CONSENT FORM SIGNED FOR HIV TESTING? YURINALYSIS [id number] 14:14:00 Test Item Value Reference Range Interpretation Comments UA COLOR (test code = COLU) YELLOW YELLOW UA APPEARANCE (test code = Slightly-Cloudy CLEAR APPU) UA GLUCOSE DIPSTICK (test NEGATIVE NEG code = DGLUU) UA BILIRUBIN DIPSTICK (test NEGATIVE NEG code = BILU) UA KETONE DIPSTICK (test code 1+ NEG A = KETU) UA SPECIFIC GRAVITY (test 1.020 1.001-1.035 N code = SGU) UA BLOOD DIPSTICK (test code NEG NEG = BHARGAVI) UA PH DIPSTICK (test code = 7.0 5-9 DANNI) UA PROTEIN DIPSTICK (test 1+ NEG A code = PROU) UA UROBILINIOGEN DIPSTICK NEGATIVE mg/dL NEG (test code = URO) UA NITRITE DIPSTICK (test NEG NEG code = DEMETRIUS) UA LEUKOCYTE ESTERASE NEG NEG DIPSTICK (test code = LEUU) UA WBC (test code = WBCU) 3-5 #/hpf NONE SEEN A UA RBC (test code = RBCU) 0-2 #/hpf NONE SEEN UA EPITHELIAL CELLS (test RARE #/HPF RARE-FEW code = EPIU) UA BACTERIA (test code = RARE /HPF RARE-FEW BACU) UA MUCUS (test code = MUCU) 4+ NONE SEEN URINE SAMPLE: CLEAN CATCHCOVID 19 Asymptomatic IH [id number] 13:50:00 Test Item Value Reference Range Interpretation Comments COVID 19 NEGATIVE NEGATIVE This test has b een Asymptomatic IH AG authorize d only for the (test code = detection ofpro teins from COVNONPUIAG) SARS-CoV-2, not for any other viruses orpathogens. N egative results should be treated as presumptive andconfirmed wi th a molecular assay , if necessary for patientmanageme nt. Negative result s do not rule out COVID- 19 andshould not b e used as the sole basis for treatment orpat ient management deci sions, including infec tion controldecision s. Negative result s should be considered i n thecontext of a patient's recent exposure s, history and thepresence of clinical signs and symptoms consis tent withCOVID-19. T his test has not been FD A cleared or approved; th e test hasbeen authori makayla by FDA under an Emerge ncy Use Authorization(E UA) for use by laborato libby certified under the CLIA thatmeet the re quirements to perform mode rate, high or waivedcomple xity tests. This silas t is authorized for use at thePoint of Car e (POC), i.e., in patien t care settingsoperati ng under a CLIA Certificat e of Waiver, Certifi kassie ofCompliance, o r Certificate of Accreditation. This test is only authori zed for the duration of thedeclaration that circumstances e xist justifying theauthorizatio n of emergency use o f in vitro diagnostic test sfor detection and/o r diagnosis of CO VID-19 under Zdyeuvv92 4(b)(1) of the Act, 21 U.S .C. 360bbb-3(b)(1), unless theauthorizatio n is terminated or r evoked sooner. HCG SERUM [id number] 13:43:00 Test Item Value Reference Range Interpretation Comments HCG SERUM QUAL (test code = HCGQL) NEGATIVE CBC W/AUTO [id number] 13:22:00 Test Item Value Reference Range Interpretation Comments WHITE BLOOD CELL (test code = WBC) 5.8 K/mm3 6.6-12.1 L RED BLOOD CELL (test code = RBC) 4.20 M/mm3 3.45-5.01 N HEMOGLOBIN (test code = HGB) 12.6 g/dL 10.7-13.9 N HEMATOCRIT (test code = HCT) 39.0 % 32.1-42.1 N MEAN CELL VOLUME (test code = MCV) 93 fL 84.1-94.8 N MEAN CELL HGB (test code = MCH) 30.0 pg 27-35 N MEAN CELL HGB CONCETRATION (test 32.3 gm/dL 32.2-34.1 N code = MCHC) RED CELL DISTRIBUTION WIDTH (test 11.8 % 12.4-16.5 L code = RDW) PLATELET COUNT (test code = PLT) 169 K/mm3 133-385 N MEAN PLATELET VOLUME (test code = 13.6 fl 9.1-12.7 H MPV) NEUTROPHIL % (test code = NT%) 68.6 % 56.5-79.4 N LYMPHOCYTE % (test code = LY%) 24.0 % 14.3-34.3 N MONOCYTE % (test code = MO%) 5.0 % 5.1-10.4 L EOSINOPHIL % (test code = EO%) 1.6 % 0.1-3.0 N BASOPHIL % (test code = BA%) 0.5 % 0.1-1.0 N NEUTROPHIL # (test code = NT#) 4.0 K/mm3 LYMPHOCYTE # (test code = LY#) 1.4 K/mm3 MONOCYTE # (test code = MO#) 0.3 K/mm3 EOSINOPHIL # (test code = EO#) 0.09 K/mm3 BASOPHIL # (test code = BA#) 0.0 K/mm3 RBC MORPHOLOGY REQUIRED (test code NORMAL NORMAL = RBCM) PLATELET MORPHOLOGY REQUIRED (test NORMAL NORMAL code = PLTMR) - DUP AB/PEL/SC/[id number] 07:44:00 Patient Name: SIDNEY ROBERTSON Unit No: [id number] EXAMS: CPT CODE: [id number] DUP AB/PEL/SC/LTD 71560 CLINICAL HISTORY: Pelvic pain. COMPARISON: August 21, 2017 Real-time ultrasound examination of the pelvis was performed using transabdominal and endovaginal approach. Doppler evaluation of both ovaries was also performed. The uterus measures 7.4 x 3.6 x 5.6 cm in greatest dimensions with endometrium measuring 8 mm in AP dimension. There is no evidence of uterine fibroid or other significant uterine abnormality. Changes related to are present in lower uterine segment. The right ovary measures 27 x 18 x 23 mm and contains a hemorrhagic corpus luteum measuring 19 x 15 x 18 mm. Blood flow is identified in the right ovary. The left ovary measures 22 x19 x 20 mm and has normal sonographic appearance. Blood flow is identified in the left ovary. Noextraovarian mass is noted. There is no significant free fluid in the pelvis. IMPRESSION: Unremarkable pelvic sonogram. at 0744 Reported and signed by: Deion Burr MD CC: Jeanine Palm MD Technologist: Janelle Sam RDMS Probe: TrnscrbdD/ (0744) t.DANERJudithYOS Orig Print D/T: S: 11/04/2019 (0747) [facility] NAME: SIDNEY ROBERTSON Radiology Department PHYS: Jeanine Wills [address] : 1990 AGE: 29 SEX: F [place] [address] LOC: F.RADPHONE #: [phone] EXAM DATE: 11/04/2019 STATUS: REG CLI FAX #: [phone] RAD NO: Page 1 Signed Report Patient Name: SIDNEY ROBERTSON Unit No: [id number] EXAMS: CPT CODE: [id number] DUP AB/PEL/SC/LTD 23476 <Continued> [facility] NAME: SIDNEY ROBERTSON Radiology Department PHYS: Jeanine Wills [address] : 1990 AGE: 29 SEX: F [place] [address] LOC: Louie.RAD PHONE #: [phone] EXAM DATE: 11/04/2019 STATUS: REG CLI FAX #: [phone] RAD NO: Page 2 Signed Report- US PELVIS COMPLETE 2019-11-04 07:44:00 Patient Name: SIDNEY ROBERTSON Unit No: [id number] EXAMS: CPT CODE: [id number] US PELVIS COMPLETE 53429 CLINICAL HISTORY: Pelvic pain. COMPARISON: August 21, 2017 Real-time ultrasound examination of the pelvis was performed using transabdominal and endovaginal approach. Doppler evaluation of both ovaries was also performed. The uterus measures 7.4 x 3.6 x 5.6 cm in greatest dimensions with endometrium measuring 8 mm in AP dimension. There is no evidence of uterine fibroid or other significant uterine abnormality. Changes related to are present in lower uterine segment. The right ovary measures 27 x 18 x 23 mm and contains a hemorrhagic corpus luteum measuring 19 x 15 x 18 mm. Blood flow is identified in the right ovary. The left ovary measures 22 x19 x 20 mm and has normal sonographic appearance. Blood flow is identified in the left ovary. No extraovarian mass is noted. There is no significant free fluid in the pelvis. IMPRESSION: Unremarkable pelvic sonogram. at 0744 Reported and signed by: Deion Burr MD CC: Jeanine Palm MD Technologist: Janelle Sam RDMS Probe: TrnscrbdD/ (0744) t.SDR.YOS Orig Print D/T: S: 11/04/2019 (0747) [facility] NAME: SIDNEY ROBERTSON Radiology Department PHYS: [facility] Jeanine Palm [address] : 1990 AGE: 29 SEX: F [place] [address] LOC: F.RADPHONE #: [phone] EXAM DATE: 11/04/2019 STATUS: REG CLI FAX #: [phone] RAD NO: Page 1 Signed Report Patient Name: SIDNEY ROBERTSON Unit No: [id number] EXAMS: CPT CODE: [id number] US PELVIS COMPLETE 25502 <Continued> [facility] NAME: SIDNEY ROBERTSON Radiology Department PHYS: [facility] Jeanine Palm [address] : 1990 AGE: 29 SEX: F [place] [address] LOC: F.RAD PHONE #: [phone] EXAM DATE: 11/04/2019 STATUS: REG CLI FAX #: [phone] RAD NO: Page 2 Signed Report- US TRANSVAGINAL [id number] 07:44:00 Patient Name: SIDNEY ROBERTSON Unit No: [id number] EXAMS: CPT CODE: [id number] US TRANSVAGINAL W/PELVIS 87046 CLINICAL HISTORY: Pelvic pain. COMPARISON: August 21, 2017 Real-time ultrasound examination of the pelvis was performed using transabdominal and endovaginal approach. Doppler evaluation of both ovaries was also performed. The uterus measures 7.4 x 3.6 x 5.6 cm in greatest dimensions with endometrium measuring 8 mm in AP dimension. There is no evidence of uterine fibroid or other significant uterine abnormality. Changes related to are present in lower uterine segment. The right ovary measures 27 x 18 x 23 mm and contains a hemorrhagic corpus luteum measuring 19 x 15 x 18 mm. Blood flow is identified in the right ovary. The left ovary measures 22 x19 x 20 mm and has normal sonographic appearance. Blood flow is identified in the left ovary. Noextraovarian mass is noted. There is no significant free fluid in the pelvis. IMPRESSION: Unr emarkable pelvic sonogram. at 0744 Reported and signed by: Deion Burr MD CC: Jeanine Palm MD Technologist: Janelle Sam RDMS Probe: [id number] TrnscrbdD/ (0744) t.YOS Orig Print D/T: S: 11/04/2019 (0747) [facility] NAME: SIDNEY ROBERTSON Radiology Department PHYS: TEOFILOMOJudith Jeanine Palm [address] : 1990 AGE: 29 SEX: F [place], [place] [address] LOC: F.RADPHONE #: [phone] EXAM DATE: 11/04/2019 STATUS: REG CLI FAX #: [phone] RAD NO: Page 1 Signed Report Patient Name: SIDNEY ROBERTSON Unit No: [id number] EXAMS: CPT CODE: [id number] US TRANSVAGINAL W/PELVIS 00464 <Continued> [facility] NAME: SIDNEY ROBERTSON Radiology Department PHYS: TEOFILO MOJudith Jeanine Palm [address] : 1990 AGE: 29 SEX: F [place], [place] [address] LOC: F.RAD PHONE #: [phone] EXAM DATE: 11/04/2019 STATUS: REG CLI FAX #: [phone] RAD NO: Page 2 Signed Report
[2020-07-27 08:23] LABS: Absolute Lymphocytes (CBC) 0.8 K/uL (0.7-4.9); Basophils % 0.3 % (0-1.3); Hematocrit 41.5 % (36.0-45.0); Lymphocytes % 7.5 % (15.3-44.8); MPV 11.3 fL (7.6-11.3)
[2020-07-27] MEDS ORDERED: INSULIN -REGULAR HUMAN 50 UNIT/0.5 ML ML ONE (08:34)
[2020-07-27] MEDS ORDERED: NA CHLORIDE 0.9% 1,000 ML ONE (08:34)
[2020-07-27] MEDS ORDERED: ONDANSETRON 4 MG/2 ML VIAL ONE (08:38)
[2020-07-27 08:39] LABS: BUN Blood Urea Nitrogen 24 mg/dL (7-18); Bicarbonate 20 mmol/L (21-32); Glucose Level 336 mg/dL (74-106); Potassium 3.9 mmol/L (3.5-5.1); Sodium Level 134 mmol/L (136-145)
[2020-07-27 09:40] LABS: White Blood Cell Scan OK (OK)
[2020-07-27 09:41] LABS: Blood Morphology Comment NOT SEEN (NOT SEEN); Platelet Estimate DECR
--- NOTE | 2020-07-27 10:06 | ER ---
Nurse's Notes [facility] Name: Lilibeth Sharif Age: 30 yrs Sex: Female : 1990 Arrival Date: 07/27/2020 Time: 07:25 Bed 6 Private MD: Haritha Mata Diagnosis: Hyperglycemia, unspecified Presentation: 07/27 07:41 Chief complaint: Patient states: "my blood sugar has been over 400 for the last 6 hours aa5 and I've been having trouble with my insulin pump but I've been giving myself insulin but it's not coming down". Pt reports nausea/vomiting. Coronavirus screen: nausea, vomiting. Ebola Screen: Patient negative for fever greater than or equal to 101.5 degrees Fahrenheit, and additional compatible Ebola Virus Disease symptoms. Initial Sepsis Screen: Does the patient meet any 2 criteria? No. Patient's initial sepsis screen is negative. Does the patient have a suspected source of infection? No. Patient's initial sepsis screen is negative. Risk Assessment: Do you want to hurt yourself or someone else? Patient reports no desire to harm self or others. Onset of symptoms was July 27, 2020. 07:41 Method Of Arrival: Ambulatory aa5 07:41 Acuity: JAMISON 3 aa5 Triage Assessment: 07:45 General: Appears distressed, comfortable, Behavior is cooperative, appropriate for age, bp anxious. Pain: Denies pain. EENT: No deficits noted. Neuro: Level of Consciousness is awake, alert, obeys commands, Oriented to Appropriate for age. Cardiovascular: No deficits noted. Respiratory: No deficits noted. GI: No signs and/or symptoms were reported involving the gastrointestinal system. : No signs and/or symptoms were reported regarding the genitourinary system. Derm: No deficits noted. Musculoskeletal: No deficits noted. 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 - Social history:: Smoking status: Patient denies any tobacco usage or history of. Screenin:45 Abuse screen: Denies threats or abuse. Denies injuries from another. Nutritional bp screening: No deficits noted. Tuberculosis screening: No symptoms or risk factors identified. Fall Risk None identified. Assessment: 07:45 General: SEE TRIAGE NOTE. bp 08:59 Reassessment: No changes from previously documented assessment. Patient and/or family bp updated on plan of care and expected duration. Pain level reassessed. ALL CURRENT ORDERS COMPLETED. IVF INFUSING. 10:10 Reassessment: PT D/C HOME AMBULATORY, DX WITH HYPERGLYCEMIA. bp Vital Signs: 07:41 BP 105 / 61; Pulse 123; Resp 18 S; Temp 98.2(TE); Pulse Ox 97% on R/A; Weight 79.38 kg aa5 (R); Height 5 ft. 3 in. (160.02 cm) (R); 09:00 BP 94 / 48; Pulse 101; Resp 17; Pulse Ox 100% ; bp 10:09 BP 99 / 56; Pulse 102; Resp 17; Temp 98.2; Pulse Ox 98% ; bp 07:41 Body Mass Index 31.00 (79.38 kg, 160.02 cm) aa5 ED Course: 07:25 Patient arrived in ED. am2 07:25 Haritha Mata is Private Physician. am2 07:41 Arm band placed on. aa5 07:43 Triage completed. aa5 07:45 Patient has correct armband on for positive identification. Bed in low position. Call bp light in reach. Side rails up X2. 07:49 Robert Nicholson MD is Attending Physician. kdr 07:50 Viral Reese, RHONDA is Primary Nurse. bp 08:10 Inserted saline lock: 22 gauge in right antecubital area, using aseptic technique. bp Blood collected. 09:32 Chem 7 Sent. bp 09:32 CBC with Diff Sent. bp 10:03 Haritha Mata is Referral Physician. kdr 10:11 No provider procedures requiring assistance completed. IV discontinued, intact, bp bleeding controlled, No redness/swelling at site. Pressure dressing applied. Administered Medications: 08:11 Drug: NS 0.9% 1000 ml Route: IV; Rate: 1 bolus; Site: right antecubital; bp 08:11 Drug: Insulin Regular Human 8 units {Co-Signature: aa5 (Christine Dempsey RN).} Route: bp IVP; Site: right antecubital; 09:32 Follow up: Response: No adverse reaction bp Point of Care Testing: Blood Glucose: 07:43 Blood Glucose: 372 mg/dL; aa5 Ranges: Outcome: 10:05 Discharge ordered by . kdr 10:11 Discharged to home ambulatory. bp 10:11 Condition: stable 10:11 Discharge instructions given to patient, Instructed on discharge instructions, follow up and referral plans. medication usage, Demonstrated understanding of instructions, follow-up care, medications, Prescriptions given X 1. 10:16 Patient left the ED. bp Signatures: Robert Nicholson MD MD kdr Calderon, Audri RN RN aa5 Zari Gonzalez Brian RN RN bp Christine Dempsey RN aa5
--- NOTE | 2020-07-27 10:06 | EDPHYS ---
Physician Documentation [facility] Name: Lilibeth Sharif Age: 30 yrs Sex: Female : 1990 Arrival Date: 07/27/2020 Time: 07:25 Bed 6 Private MD: Haritha Mata ED Physician Robert Nicholson HPI: 07/27 17:21 This 30 yrs old Female presents to ER via Ambulatory with complaints of dka. kdr 17:21 For the past six hours, the patient has had difficulty getting her BS under 400 despite kdr repeated attempts with boluses from her pump. Onset: The symptoms/episode began/occurred this morning. Severity of symptoms: At their worst the symptoms were mild moderate just prior to arrival, in the emergency department the symptoms are unchanged. The patient has not experienced similar symptoms in the past. The patient has not recently seen a physician. 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 - Social history:: Smoking status: Patient denies any tobacco usage or history of. ROS: 17:21 Constitutional: Negative for fever, chills, and weight loss, Eyes: Negative for injury, kdr pain, redness, and discharge, ENT: Negative for injury, pain, and discharge, Neck: Negative for injury, pain, and swelling, Cardiovascular: Negative for chest pain, palpitations, and edema, Respiratory: Negative for shortness of breath, cough, wheezing, and pleuritic chest pain, Abdomen/GI: Negative for abdominal pain, nausea, vomiting, diarrhea, and constipation, Back: Negative for injury and pain, : Negative for injury, bleeding, discharge, and swelling, MS/Extremity: Negative for injury and deformity, Skin: Negative for injury, rash, and discoloration, Neuro: Negative for headache, weakness, numbness, tingling, and seizure activity. Psych: Negative for depression, anxiety, suicide ideation, homicidal ideation, and hallucinations, Allergy/Immunology: Negative for hives, rash, and allergies, Hematologic/Lymphatic: Negative for swollen nodes, abnormal bleeding, and unusual bruising. 17:21 Endocrine: Positive for High BS. Exam: 17:21 Constitutional: This is a well developed, well nourished patient who is awake, alert, kdr and in no acute distress. Head/Face: Normocephalic, atraumatic. Eyes: Pupils equal round and reactive to light, extra-ocular motions intact. Lids and lashes normal. Conjunctiva and sclera are non-icteric and not injected. Cornea within normal limits. Periorbital areas with no swelling, redness, or edema. Neck: Trachea midline, no thyromegaly or masses palpated, and no cervical lymphadenopathy. Supple, full range of motion without nuchal rigidity, or vertebral point tenderness. No Meningismus. Chest/axilla: Normal chest wall appearance and motion. Nontender with no deformity. No lesions are appreciated. Cardiovascular: Regular rate and rhythm with a normal S1 and S2. No gallops, murmurs, or rubs. Normal PMI, no JVD. No pulse deficits. Respiratory: Lungs have equal breath sounds bilaterally, clear to auscultation and percussion. No rales, rhonchi or wheezes noted. No increased work of breathing, no retractions or nasal flaring. Abdomen/GI: Soft, non-tender, with normal bowel sounds. No distension or tympany. No guarding or rebound. No evidence of tenderness throughout. Back: No spinal tenderness. No costovertebral tenderness. Full range of motion. Skin: Warm, dry with normal turgor. Normal color with no rashes, no lesions, and no evidence of cellulitis. MS/ Extremity: Pulses equal, no cyanosis. Neurovascular intact. Full, normal range of motion. Neuro: Awake and alert, GCS 15, oriented to person, place, time, and situation. Cranial nerves II-XII grossly intact. Motor strength 5/5 in all extremities. Sensory grossly intact. Cerebellar exam normal. Normal gait. Psych: Awake, alert, with orientation to person, place and time. Behavior, mood, and affect are within normal limits. Vital Signs: 07:41 BP 105 / 61; Pulse 123; Resp 18 S; Temp 98.2(TE); Pulse Ox 97% on R/A; Weight 79.38 kg aa5 (R); Height 5 ft. 3 in. (160.02 cm) (R); 09:00 BP 94 / 48; Pulse 101; Resp 17; Pulse Ox 100% ; bp 10:09 BP 99 / 56; Pulse 102; Resp 17; Temp 98.2; Pulse Ox 98% ; bp 07:41 Body Mass Index 31.00 (79.38 kg, 160.02 cm) aa5 MDM: 10:05 Patient medically screened. kdr 17:21 Data reviewed: vital signs, nurses notes, lab test result(s). Counseling: I had a kdr detailed discussion with the patient and/or guardian regarding: the historical points, exam findings, and any diagnostic results supporting the discharge/admit diagnosis, lab results, the need for outpatient follow up. Special discussion: I discussed with the patient/guardian in detail that at this point there is no indication for admission to the hospital. It is understood, however, that if the symptoms persist or worsen the patient needs to return immediately for re-evaluation. 07/27 07:51 Order name: CBC with Diff kdr 07/27 07:51 Order name: Chem 7 kdr 07/27 07:51 Order name: CBC with Automated Diff; Complete Time: 09:58 EDMS 07/27 07:51 Order name: Basic Metabolic Panel; Complete Time: 09:58 EDMS 07/27 09:40 Order name: CBC Smear Scan; Complete Time: 09:58 EDMS 07/27 09:55 Order name: Glucose, Ancillary Testing; Complete Time: 09:58 EDMS Administered Medications: 08:11 Drug: NS 0.9% 1000 ml Route: IV; Rate: 1 bolus; Site: right antecubital; bp 08:11 Drug: Insulin Regular Human 8 units {Co-Signature: aa5 (Christine Dempsey RN).} Route: bp IVP; Site: right antecubital; 09:32 Follow up: Response: No adverse reaction bp Point of Care Testing: Blood Glucose: 07:43 Blood Glucose: 372 mg/dL; aa5 Ranges: Critical Glucose Levels:Adult <50 mg/dl or >400 mg/dl <40 mg/dl or >180 mg/dl Disposition: 07/27/20 10:05 Discharged to Home. Impression: Hyperglycemia, unspecified. - Condition is Stable. - Discharge Instructions: Blood Glucose Monitoring, Adult, Hyperglycemia, Eoxx-oq-Yeuk. - Prescriptions for Zofran 4 mg Oral Tablet - take 1 tablet by ORAL route every 4 hours As needed; 20 tablet. - Medication Reconciliation Form, Thank You Letter form. - Follow up: Haritha Mata; When: 2 - 3 days; Reason: If symptoms return, Further diagnostic work-up, Recheck today's complaints, Continuance of care, Re-evaluation by your physician. - Problem is an acute exacerbation. - Symptoms have improved. Signatures: Dispatcher [employer] EDMS Robert Nicholson MD MD kdr Christine Dempsey RN RN aa5 Viral Reese RN RN bp Christine Dempsey RN aa5 Corrections: (The following items were deleted from the chart) 10:16 10:05 07/27/2020 10:05 Discharged to Home. Impression: Hyperglycemia, unspecified. bp Condition is Stable. Forms are Medication Reconciliation Form, Thank You Letter, Antibiotic Education, Prescription Opioid Use. Follow up: Haritha Mata; When: 2 - 3 days; Reason: If symptoms return, Further diagnostic work-up, Recheck today's complaints, Continuance of care, Re-evaluation by your physician. Problem is an acute exacerbation. Symptoms have improved. kdr
[2020-07-27 21:51] VITALS: BP 99/56; TEMP 98.2; O2SAT 98
== END 2020-07-27 10:16 | disposition home or self-care (01) ==
LOC: ER 07:24
DX: E11.65 Type 2 diabetes mellitus with hyperglycemia (principal); Z88.2 Allergy status to sulfonamides; Z88.5 Allergy status to narcotic agent; Z88.8 Allergy status to other drugs, medicaments and biological substances; Z96.41 Presence of insulin pump (external) (internal)
CPT/HCPCS: 85025; 80048; 36415; 82947 ×2; 96374; 99284; J7030; J2405

== ENCOUNTER 2021-08-21 08:03 | Emergency (ER) | payer BC ==
--- OUTSIDE RECORDS SUMMARY | 2021-08-21 08:06 | XMS REPORT | Continuity of Care Document ---
:1990 Author Organization [facility] t Address [address] [place] [address] Care Team Providers Name Role Phone Rashel VELASCO, Arsenio Primary Care Physician Eduardo Scott Attending Clinician Unavailable Ramon VELASCO Attending Clinician Que_Gene Attending Clinician Unavailable Pob, Lab Main Attending Clinician Unavailable Rashel VELASCO, Arsenio Attending Clinician Arsenio KISER Attending Clinician Unavailable Doctor Unassigned, Name Attending Clinician Unavailable [email or web address] Attending Clinician Unavailable Provider, Urgent Care Attending Clinician Unavailable Only, Test Attending Clinician Unavailable Néstor, Arsenio Attending Clinician Unavailable WONDIFUL Admitting Clinician Unavailable Que_Gene Admitting Clinician Unavailable [email or web address] Admitting Clinician Unavailable Physician, Primary or Family Admitting Clinician Unavailabl e Payers Payer Name Policy Type Policy Number Effective Date Expiration Date S our[place] [id number] 2020 00:[place]00 [place] Problems Condition Condition Condition Status Onset Resolution Last Treating Co mments Source Name Details Category Date Date Treatment Clinician Date Type 1 Type 1 Problem Active [place] diabetes Diabetes 3-05 Family mellitus Mellitus 00:00: Practi c 00 e Dizziness Dizziness Disease Active Uni vers 2-04 ity of 00:00: [place] [facility] Dyspnea on Dyspnea on Disease Active U nivers exertion exertion 2-04 ity of 00:00: [place] [facility] Fatigue, Fatigue, Disease Active Unive rs unspecifie unspecifie 2-04 it y of d type d type 00:00: [place] [facility] Clammy Clammy Disease Active Univers skin skin 2-04 ity of 00:00: [place] [facility] Rhinorrhea Rhinorrhea Disease Active U nivers 2-04 ity of 00:00: [place] [facility] Viral Viral Disease Active Univers syndrome syndrome 2-04 ity of 00:00: [place] [facility] Obesity Obesity Problem Active Village 6-23 Family 00:00: Practic 00 e General General Problem Active [place] finding of Finding of [address] Fa anjelica observatio Observatio 00:00: Pr actic n of n of 00 e patient Patient Finding Finding Problem Active [facility] related to Related to 1-30 Fa anjelica sleep Sleep 00:00: Practic 00 e Anxiety Anxiety Disease Active Univers and and 1-14 [place] Psoriasis Psoriasis Problem Active 2017-04 Luan gillian 1-01 Family 00:00: Practic 00 e Overweight Overweight Problem Active V illage 6-22 Family 00:00: Practic 00 e Iron Iron Disease Active Univers deficiency deficiency 5-28 it y of anemia due anemia [place] chronic to chronic 00 Me dical blood loss blood loss Br anch Hypoglycem Hypoglycem Problem Active 2016-04 V illage ia ia 0-10 Family 00:00: Practic 00 e Vitamin D Vitamin D Problem Active 2016-04 Luan gillian deficiency Deficiency 0-10 Fa anjelica 00:00: Practic 00 e Megaloblas Megaloblas Problem Active 2016-04 V illage tic anemia tic Anemia 0-10 Fa anjelica due to Due to 00:00: Practic vitamin Vitamin 00 e B>12< B>12< deficiency Deficiency Anemia Anemia Problem Active 2016-04 Village 0-10 Family 00:00: Practic 00 e Insulin Insulin Problem Active 2016-04 [facility] pump Pump 0-10 Family present Present 00:00: Practic 00 e Long-term Long-term Problem Active 2016-04 Luan french current Current 0-10 Family use of Use of 00:00: Practic insulin Insulin 00 e Cardiovasc Cardiovasc Problem Active 2016-04 V illage jewel ulagapito 0-10 Family measuremen Measuremen 00:00: Pr actic t - t - 00 e finding Finding Clinical Clinical Problem Active 2016-04 Feliciano ge finding Finding 0-10 Family 00:00: Practic 00 e SVT SVT Disease Active Overview: Univer s (supravent (supravent 3-21 Formattin ity of ricular ricular 00:00: g of this [place] tachycardi tachycardi 00 note Me dical a) a) might be Branch different from the original. Dr. Pendleton ([facility]), followed q6mos Diabetic Diabetic Disease Active Unive rs keto-acido keto-acido 9-15 it y of sis sis 00:00: Medical Branch Sinus Sinus Disease Active Univers tachycardi tachycardi 9-14 it y of a a 00:00: Medical Branch Insomnia Insomnia Disease Active Unive rs 3-27 ity of 00:00: [place] [facility] Vitamin D Vitamin D Disease Active Overview: Univers deficiency deficiency 8-19 Formattin ity of 00:00: g of this note Medical might be Branch different from the original. ICD10 Diagnosis Term Account Services Associate Utility Obesity Obesity Disease Active Overview: Univ ers 5-02 Formattin ity of 00:00: g of this note Medical might be Branch different from the original. ICD10 Diagnosis Term Account Services Associate Utility Diabetes Diabetes Disease Active Overview: Un leeann mellitus mellitus 2-23 Formattin ity of 00:00: g of this note Medical might be Branch different from the original. 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 Claudy Que-Pe ar[place] Sinusitis Sinusitis Problem Active [place] [...] Date Date Clinician Sulfa DA Active U 2019- [facility] (Sulfona -16 [facility] Antibiot 00 l of ics) [place] morphine DA Active U 2019- [facility] 1-16 [facility] 00[facility] [place] hydrocod DA Active U 2019- [facility] one -16 [facility] 00:[facility]: [facility] 00 [facility] [place] fluconaz DA Active U 2019- [facility] ole 1-16 Woman[facility] 00:00: [facility] 00 l of [place] tramadol DA Active U 2019- [facility] 1-16 [facility] 00:[facility]: [facility] 00 l of [place] Sulfa DA Active U ITCHING 2019- [facility] (Sulfona -16 Woman's mide 00:00: Hospita Antibiot 00 l of ics) [place] morphine DA Active U SHORTNESS OF 2019- HC A BREATH -16 Woman's 00:00: [facility] 00 l of [place] hydrocod DA Active U ITCHING 2019- [facility] one -16 [facility] 00:00: [facility] 00 l of [place] fluconaz DA Active U HIVES 2019- [facility] ole 1-16 Woman's 00:00: [facility] 00 l of [place] tramadol DA Active U ITCHY 2019- [facility] 1-16 [facility] 00:00: [facility] 00 l of [place] adhesive DA Active MO 2017-0 [facility] 4-20 Woman's 00:00: [facility] 00 l of [place] adhesive DA Active MO HIVES 2017-0 [facility] 4-20 [facility] 00:00: [facility] 00 l of [place] Sulfa DA Active MS 2017-0 [facility] (Sulfona -18 Woman's mide 00:00: Hospita Antibiot 00 l of ics) [place] morphine DA Active SV 2017-0 [facility] 4-18 [facility] 00:00: [facility] 00 l of [place] hydrocod DA Active MS 2017-0 [facility] one 4-18 Woman's 00:00: [facility] 00 l of [place] tramadol DA Active MS 2017-0 [facility] 4-18 Woman's 00:00: [facility] 00 l of [place] Sulfa DA Active MS ITCHING 2017-0 [facility] (Sulfona 4-18 Woman's mide 00:00: Hospita Antibiot 00 l of ics) [place] morphine DA Active SV SHORTNESS OF 2017-0 HC A BREATH 4-18 Woman's 00:00: [facility]ospita 00 l of [place] hydrocod DA Active MS ITCHING 2017-0 [facility] one 4-18 Woman's 00:00: [facility] 00 l of [place] tramadol DA Active MS ITCHING 2017-0 [facility] 4-18 Woman's 00:00: [facility] 00 l of [place] SULFA Drug Active ITCHING 0 Univers (SULFONA Class 3-27 ity of MIDE 00:00: [place] ANTIBIOT 00 Medical ICS) Branch Sulfa Propensi Active Itching Univers (Sulfona ty to 3-27 ity of mide adverse 00:00: [place] Antibiot reaction 00 Medica l ics) s Branch Sulfa Propensi Active Itching 0 Univers (Sulfona ty to 3-27 ity of mide adverse 00:00: [place] Antibiot reaction 00 Medica l ics) s Branch ADHESIVE Drug Active Hives 0 Univers Class 2-27 ity of 00:00: [place] 00 Medical Branch Adhesive Propensi Active Hives 0 Univer s ty to 2-27 ity of adverse 00:00: [place] reaction 00 Medical s Branch Adhesive Propensi Active Hives 0 Univer s ty to 2-27 ity of adverse 00:00: [place] reaction 00 Medical s Branch TRAMADOL DRUG Active ITCHING 0 Univers INGREDI 2-07 ity of 00:00: [place] 00 Medical Branch Tramadol Propensi Active Itching 0 Unive rs ty to 2-07 ity of adverse 00:00: [place] reaction 00 Medical s Branch HYDROCOD DRUG Active ITCHING 0 Univers ONE INGREDI 5-31 ity of 00:00: [place] 00 Medical Branch Hydrocod Propensi Active Itching 0 Unive rs one ty to 5-31 ity of adverse 00:00: [place] reaction 00 Medical s Branch MORPHINE DRUG Active ITCHING 0 Univers INGREDI 8-24 ity of 00:00: [place] 00 Medical Branch Morphine Propensi Active Shortness of 2010- Univers ty to Breath 8-24 ity of adverse 00:00: [place] reaction 00 Medical s Branch Hydrocod Allergy Active Hives Village one to Family substanc Practic e e MORPHINE Allergy Active Village SULFATE to Family substanc Practic e e Sulfacet Allergy Active Hives Village amide to Family substanc Practic e e TRAMADOL Allergy Active Hives Village HCL to Family substanc Practic e e Trulicit Allergy Active Village y to Family substanc Practic e e Diflucan Allergy Active Hives [place] to Family substanc Practic e e Morphine Allergy Active [place] to da substanc Medical e Group Tramadol Allergy Active [place] to da substanc Medical e Group Social History Social Habit Start Date Stop Date Quantity Comments Source History [facility] o f [place] Alcohol Frequency Medical Branch History [facility] o f [place] Alcohol Std Drinks Medica l Branch History [facility] o f [place] Alcohol Binge Medical Bra formerly [facility] Exposure to Not sure [facility] SARS-CoV-2 (event) Medica l Branch Alcohol intake 2021-07-15 2021-07-15 .14 /d [facility] 00:00:00 00:00:00 Medical Branch Alcohol Comment 2014-07-15 2014-07-15 social [facility] 00:00:00 00:00:00 Medical Branch Sex [birth year] [facility] 00:00:00 00:00:00 Medical Branch Smoking Status Start Date Stop Date Source Never smoker [facility] Medical Branch Medications Ordered Filled Start Stop Current Ordering Indication Dosage Frequency Signature Comments Components Source Medication Medication Date Date Medication? Clinician (SIG) Name Name ketorolac 2021- No [id number] 60mg Uni vers (TORADOL) 07-13 ity of injection 22:30: 21:45 [place] 60 mg 00 :00 Medical Branch ketorolac 2021- No [id number] 60mg 60 mg, U nivers (TORADOL) 07-13 Intramuscu ity of injection 22:30: 21:45 [place], ONCE, [place] 60 mg 00 :00 1 dose, On Medical Fri Branch 07/13/21 at 1730, Routine ketorolac 2021- No [id number] 60mg Uni vers (TORADOL) 07-13 ity of injection 22:30: 21:45 [place] 60 mg 00 :00 Medical Branch ketorolac 0 2021- No [id number] 60mg 60 mg, U nivers (TORADOL) 07-13 Intramuscu ity of injection 22:30: 21:45 [place], ONCE, [place] 60 mg 00 :00 1 dose, On Medical Fri Branch 07/13/21 at 1730, Routine metoprolol Yes Univers succinate 3-17 ity of XL 50 mg 24 00:00: [place] hr tablet 00 [facility] Branch metoprolol Yes Univers succinate 3-17 ity of XL 50 mg 24 00:00: [place] hr tablet [facility] Branch metoprolol Yes Univers succinate 3-17 ity of XL 50 mg 24 00:00: [place] hr tablet 00 [facility] Branch metoprolol Yes Univers succinate 3-17 ity of XL 50 mg 24 00:00: [place] hr tablet 00 [facility] Branch metoprolol Yes Univers succinate 3-17 ity of XL 50 mg 24 00:00: [place] hr tablet 00 Medical Branch WEGOVY 2.4 Yes Univers mg/0.75 mL 2-01 ity of PnIj SC 00:00: [place] injection 00 Medical Branch WEGOVY 2.4 Yes Univers mg/0.75 mL 2-01 ity of PnIj SC 00:00: [place] injection 00 Medical Branch WEGOVY 2.4 0 Yes Univers mg/0.75 mL 2-01 ity of PnIj SC 00:00: [place] injection Medical Branch WEGOVY 2.4 0 Yes Univers mg/0.75 mL 2-01 ity of PnIj SC 00:00: [place] injection 00 Medical Branch WEGOVY 2.4 0 Yes Univers mg/0.75 mL 2-01 ity of PnIj SC 00:00: [place] injection 00 Medical Branch SERTraline 2020-04 Yes [id number] 50mg Take 1 U nivers 50 mg 1-16 tablet by ity of tablet 00:00: mouth [place] 00 daily. Medical Branch SERTraline 2020-04 Yes [id number] 50mg Take 1 U nivers 50 mg 1-16 tablet by ity of tablet 00:00: mouth [place] 00 daily. Medical Branch SERTraline 2020-04 Yes [id number] 50mg Take 1 U nivers 50 mg 1-16 tablet by ity of tablet 00:00: mouth [place] 00 daily. Medical Branch SERTraline 2020-04 Yes [id number] 50mg Take 1 U nivers 50 mg 1-16 tablet by ity of tablet 00:00: mouth [place] 00 daily. Medical Branch SERTraline 2020-04 Yes [id number] 50mg Take 1 U nivers 50 mg 1-16 tablet by ity of tablet 00:00: mouth [place] 00 daily. Medical Branch ketorolac 2020-04- No [id number] 10mg Take 1 U nivers 10 mg 04-2927 tablet by ity of tablet 00:00: 00:00 mouth [place] 00 :00 every 6 Medical (six) Branch hours as needed (pain not relieved by acetaminop hen). Take with food. ketorolac 2020-04- No [id number] 10mg Take 1 U nivers 10 mg 04-29 tablet by ity of tablet 00:00: 00:00 mouth [place] 00 :00 every 6 Medical (six) Branch hours as needed (pain not relieved by acetaminop hen). Take with food. ketotifen Yes [id number] 1[drp] Place 1 Univers (ZADITOR) [id number] Drop in ity of 0.025 % 00:00: both eyes [place] (0.035 %) 00 2 (two) Medical ophthalmic times Branch solution daily. ketotifen Yes [id number] 1[drp] Place 1 Univers (ZADITOR) [id number] Drop in ity of 0.025 % 00:00: both eyes [place] (0.035 %) 00 2 (two) Medical ophthalmic times Branch solution daily. ketotifen Yes [id number] 1[drp] Place 1 Univers (ZADITOR) [id number] Drop in ity of 0.025 % 00:00: both eyes [place] (0.035 %) 00 2 (two) Medical ophthalmic times Branch solution daily. ketotifen Yes [id number] 1[drp] Place 1 Univers (ZADITOR) [id number] Drop in ity of 0.025 % 00:00: both eyes [place] (0.035 %) 00 2 (two) Medical ophthalmic times Branch solution daily. ketotifen 0 Yes [id number] 1[drp] Place 1 Univers (ZADITOR) 01-01 9102 Drop in ity of 0.025 % 00:00: both eyes [place] (0.035 %) 00 2 (two) Medical ophthalmic times Branch solution daily. T:SLIM X2 2020-0 Yes Univers Crtg 8-05 ity of 00:00: [place] [facility] Yes Univers INFUSION 8-05 ity of SET 23" 00:00: IS Medical Branch DEXCOM G6 Yes Univers TRANSMITTER 8-05 ity of Mell 00:00: Medical Branch DEXCOM G6 Yes Univers SENSOR Mell 8-05 ity of 00:00: Medical Branch T:SLIM X2 2020-0 Yes Univers Crtg 8-05 ity of 00:00: Medical Branch [facility] Yes Univers INFUSION 8-05 ity of SET 23" 00:00: IS Medical Branch DEXCOM G6 Yes Univers TRANSMITTER 8-05 ity of Mell 00:00: Medical Branch DEXCOM G6 Yes Univers SENSOR Mell 8-05 ity of 00:00: Medical Branch T:SLIM X2 2020-0 Yes Univers Crtg 8-05 ity of 00:00: Medical Branch [facility] Yes Univers INFUSION 8-05 ity of SET 23" 00:00: [place] IS Medical Branch DEXCOM G6 Yes Univers TRANSMITTER 8-05 ity of Mell 00:00: Medical Branch DEXCOM G6 Yes Univers SENSOR Mell 8-05 ity of 00:00: Medical Branch T:SLIM X2 2020-0 Yes Univers Crtg 8-05 ity of 00:00: [place] [facility] Yes Univers INFUSION 8-05 ity of SET 23" 00:00: IS Medical Branch DEXCOM G6 Yes Univers TRANSMITTER 8-05 ity of Mell 00:00: [place] [facility] DEXCOM G6 0 Yes Univers SENSOR Mell 8-05 ity of 00:00: [place] 00 Medical Branch T:SLIM X2 2020-0 Yes Univers Crtg 8-05 ity of 00:00: [place] 00 Medical Branch TRUSTEEL 2020-0 Yes Univers INFUSION 8-05 ity of SET 23" 00:00: [place] ISet 00 Medical Branch DEXCOM G6 2020-0 Yes Univers TRANSMITTER 8-05 ity of Mell 00:00: [place] 00 Medical Branch DEXCOM G6 2020-0 Yes Univers SENSOR Mell 8-05 ity of 00:00: [place] 00 Medical Branch LYUMJEV 0 Yes Univers U-100 7-20 ity of INSULIN 100 00:00: [place] unit/mL 00 [facility] Branch LYUMJEV 0 Yes Univers U-100 7-20 ity of INSULIN 100 00:00: [place] unit/mL 00 [facility] LYUMJEV 0 Yes Univers U-100 7-20 ity of INSULIN 100 00:00: [place] unit/mL 00 Medical [facility] LYUMJEV 0 Yes Univers U-100 7-20 ity of INSULIN 100 00:00: [place] unit/mL 00 Medical [facility] LYUMJEV 0 Yes Univers U-100 7-20 ity of INSULIN 100 00:00: [place] unit/mL 00 Medical [facility] fluticasone 0 Yes [id number] 1 spray Univers propionate 2-07 each ity of 50 00:00: nostril [place] mcg/actuati 00 twice a Medic al on nasal day for 5 Branch spray days then daily fluticasone 2020-0 Yes [id number] 1 spray Univers propionate 2-07 each ity of 50 00:00: nostril [place] mcg/actuati 00 twice a Medic al on nasal day for 5 Branch spray days then daily fluticasone 2020-0 Yes [id number] 1 spray Univers propionate 2-07 each ity of 50 00:00: nostril [place] mcg/actuati 00 twice a Medic al on nasal day for 5 Branch spray days then daily fluticasone 2020-0 Yes [id number] 1 spray Univers propionate 2-07 each ity of 50 00:00: nostril [place] mcg/actuati 00 twice a Medic al on nasal day for 5 Branch spray days then daily fluticasone Yes [id number] 1 spray Univers propionate 2-07 each ity of 50 00:00: nostril [place] mcg/actuati 00 twice a Medic al on nasal day for 5 Branch spray days then daily flash Yes [id number] 1{each} 1 Each Un leeann glucose 4-15 every 14 ity of sensor 00:00: (fourteen) [place] (FREESTYLE 00 days. Use Medi carlos JARET 14 as Branch DAY SENSOR) directed Kit with reader. flash Yes [id number] 1{each} 1 Each Un leeann glucose 4-15 every 14 ity of sensor 00:00: (fourteen) [place] (FREESTYLE 00 days. Use Medi carlos JARET 14 as Branch DAY SENSOR) directed Kit with reader. flash Yes [id number] 1{each} 1 Each Un leeann glucose 4-15 every 14 ity of sensor 00:00: (fourteen) [place] (FREESTYLE 00 days. Use Medi carlos JARET 14 as Branch DAY SENSOR) directed Kit with reader. flash Yes [id number] 1{each} 1 Each Un leeann glucose 4-15 every 14 ity of sensor 00:00: (fourteen) [place] (FREESTYLE 00 days. Use Medi carlos JARET 14 as Branch DAY SENSOR) directed Kit with reader. flash Yes [id number] 1{each} 1 Each Un leeann glucose 4-15 every 14 ity of sensor 00:00: (fourteen) [place] (FREESTYLE 00 days. Use Medi carlos JARET 14 as Branch DAY SENSOR) directed Kit with reader. amoxicillin amoxicillin No 1 Q12H amoxicilli [place] [...] mg tablet mg tablet da [facility] Baqsimi 3 Baqsimi 3 No Baqsimi 3 Village mg/actuatio mg/actuatio mg/actuati Family n nasal n nasal on [...] as miscell. directed. directed. route as directed. carvedilol carvedilol No carvedilol [facility] 3.125 mg 3.125 mg 3.125 mg Fam arthur tablet tablet tablet Practic e DEXCOM G6 DEXCOM G6 No DEXCOM [address] CGM CGM CGM Family Practic e Dexcom G6 Dexcom G6 No Dexcom G6 [facility] Sensor Sensor Sensor Family device Take device Take device Practic 3 devices 3 devices Take 3 e every month every month devices by miscell. by miscell. every route. route. month by miscell. route. Dexcom G6 Dexcom G6 No Dexcom G6 [facility] Transmitter Transmitter Transmitte Family device device r device Practic e fluticasone fluticasone No fluticason [facility] propionate propionate e Fam arthur 50 50 propionate Practic mcg/actuati mcg/actuati 50 e on nasal on nasal mcg/actuat spray,suspe spray,suspe ion nasal nsion nsion spray,susp ension Humalog Humalog No Humalog [place] U-100 U-100 U-100 Family Insulin 100 Insulin 100 Insulin Practic unit/mL unit/mL 100 e subcutaneou subcutaneou unit/mL s solution s solution subcutaneo GIve 70 GIve 70 us units in units in solution pump daily pump daily GIve 70 units in pump daily insulin insulin No insulin [place] aspart aspart aspart Family U-100 100 U-100 100 U-100 100 Practic unit/mL unit/mL unit/mL e subcutaneou subcutaneou subcutaneo s solution s solution us solution ketorolac ketorolac No ketorolac [facility] 10 mg 10 mg 10 mg Family tablet tablet tablet Practic e Lyumjev Lyumjev No Lyumjev [place] U-100 U-100 U-100 Family Insulin 100 Insulin 100 Insulin Practic unit/mL unit/mL 100 e subcutaneou subcutaneou unit/mL s solution s solution subcutaneo Use daily Use daily us with with solution insulin insulin Use daily pump: TDD pump: TDD with 70 70 insulin pump: TDD 70 metoprolol metoprolol No metoprolol [facility] succinate succinate succinate [facility] ER 50 mg ER 50 mg ER 50 mg Pra ctic tablet,exte tablet,exte tablet,ext e nded nded ended release 24 release 24 release 24 hr hr hr nitroglycer nitroglycer nitroglyce [facility] in 0.4 mg in 0.4 mg rin 0.4 mg Family sublingual sublingual sublingual Practic tablet tablet tablet e sertraline sertraline No sertraline [facility] 50 mg 50 mg 50 mg Family tablet tablet tablet Practic e t:slim X2 t:slim X2 No t:slim X2 Village subcutaneou subcutaneou subcutaneo Family s cartridge s cartridge us P ractic cartridge e TruSteel TruSteel No TruSteel Luan gillian Infusion Infusion Infusion Fam arthur Set 23" Set 23" Set 23" Practi c Take 10 Take 10 Take 10 e sets every sets every sets every month by month by month by miscell. miscell. miscell. route. route. route. Wegovy 2.4 Wegovy 2.4 No [place] 2.4 Village mg/0.75 mL mg/0.75 mL mg/0.75 mL Family subcutaneou subcutaneou subcutaneo Practic s pen s pen us pen e injector injector injector Inject 2.4 Inject 2.4 Inject 2.4 mg every mg every mg every week by week by week by subcutaneou subcutaneou subcutaneo s route for s route for us route 28 days. 28 days. for 28 days. Immunizations Ordered Filled Immunization Date Status Comments [facility] e Immunization Name Name Influenza Virus 2021-01-19 Completed Universit y of Vaccine Quad IM 3+ 00:00:00 [facility] Influenza Virus 2021-01-19 Completed Universit y of Vaccine Quad IM 3+ 00:00:00 [facility] Influenza Virus 2021-01-19 Completed Universit y of Vaccine Quad IM 3+ 00:00:00 [facility] Influenza Virus 2021-01-19 Completed Universit y of Vaccine Quad IM 3+ 00:00:00 [facility] Influenza Virus 2021-01-19 Completed Universit y of Vaccine Quad IM 3+ 00:00:00 [facility] SARS-COV-2 COVID-19 2020-06-02 Completed Unive rsity of PFIZER VACCINE 00:00:00 [facility] SARS-COV-2 COVID-19 2020-06-02 Completed Unive rsity of PFIZER VACCINE 00:00:00 [facility] SARS-COV-2 COVID-19 2020-06-02 Completed Unive rsity of PFIZER VACCINE 00:00:00 [facility] SARS-COV-2 COVID-19 2020-06-02 Completed Unive rsity of PFIZER VACCINE 00:00:00 [facility] SARS-COV-2 COVID-19 2020-06-02 Completed Unive rsity of PFIZER VACCINE 00:00:00 [facility] COVID-19 COVID-19 2020-05-22 Completed [facility] (SARS-COV-2) (SARS-COV-2) 00:00:00 Practice vaccine, vaccine, unspecified unspecified SARS-COV-2 COVID-19 2020-05-12 Completed Unive rsity of PFIZER VACCINE 00:00:00 [facility] SARS-COV-2 COVID-19 2020-05-12 Completed Unive rsity of PFIZER VACCINE 00:00:00 [facility] SARS-COV-2 COVID-19 2020-05-12 Completed Unive rsity of PFIZER VACCINE 00:00:00 [facility] SARS-COV-2 COVID-19 2020-05-12 Completed Unive rsity of PFIZER VACCINE 00:00:00 [facility] SARS-COV-2 COVID-19 2020-05-12 Completed Unive rsity of PFIZER VACCINE 00:00:00 [facility] influenza, influenza, 2020-01-20 Completed [facility] injectable, injectable, 00:00:00 Practice quadrivalent quadrivalent Influenza Virus 2018-01-29 Completed Universit y of Vaccine Quad IM 3+ 00:00:00 [facility] Influenza Virus 2018-01-29 Completed Universit y of Vaccine Quad IM 3+ 00:00:00 [facility] Influenza Virus 2018-01-29 Completed Universit y of Vaccine Quad IM 3+ 00:00:00 [facility] Influenza Virus 2018-01-29 Completed Universit y of Vaccine Quad IM 3+ 00:00:00 [facility] Influenza Virus 2018-01-29 Completed Universit y of Vaccine Quad IM 3+ 00:00:00 [facility] TDAP 2016-07-20 Completed University 00:00:00 [facility] TDAP 2016-07-20 Completed University 00:00:00 [facility] TDAP 2016-07-20 Completed University 00:00:00 [facility] TDAP 2016-07-20 Completed University 00:00:00 [facility] TDAP 2016-07-20 Completed University 00:00:00 [facility] tetanus toxoid, tetanus toxoid, 2015-04-21 Completed [facility] Family adsorbed adsorbed 00:00:00 Practice Vital Signs Vital Name Observation Time Observation Value Comments Source BP Diastolic 2021-08-14 00:00:00 60 mm[Hg] [facility] Height 2021-08-14 00:00:00 63 [in_i] [facility] BMI (Body Mass 2021-08-14 00:00:00 27.8 kg/m2 [facility] [facility] Index) Practice BP Systolic 2021-08-14 00:00:00 91 mm[Hg] [facility] Body Weight 2021-08-14 00:00:00 156.8 [lb_av] [facility] Systolic blood 2021-07-13 21:13:00 100 mm[Hg] [facility] pressure Medical Branch Diastolic blood 2021-07-13 21:13:00 68 mm[Hg[facility] Heart rate 2021-07-13 21:13:00 102 /min [facility] Body height 2021-07-13 21:13:00 160 cm [facility] Body weight 2021-07-13 21:13:00 73.936 kg [facility] BMI 2021-07-13 21:13:00 28.87 kg/m2 [facility] Oxygen saturation 2021-07-13 21:13:00 98 /min [facility] in Arterial blood Medical Br anch by Pulse oximetry BP Diastolic 2021-05-16 00:00:00 81 mm[Hg] [facility] Height 2021-05-16 00:00:00 63 [in_i] [facility] BMI (Body Mass 2021-05-16 00:00:00 32.2 kg/m2 [facility] BP Systolic 2021-05-16 00:00:00 115 mm[Hg] [facility] Body Weight 2021-05-16 00:00:00 182 [lb_av] [facility] BP Diastolic 2020-10-11 00:00:00 77 mm[Hg] [facility] Height 2020-10-11 00:00:00 63 [in_i] [facility] BMI (Body Mass 2020-10-11 00:00:00 30.5 kg/m2 [facility] BP Systolic 2020-10-11 00:00:00 113 mm[Hg] [facility] Body Weight 2020-10-11 00:00:00 172.4 [lb_av] [facility] BP Diastolic 2020-07-14 00:00:00 77 mm[Hg] [facility] Practice Height 2020-07-14 00:00:00 63 [in_i] [facility] Practice BMI (Body Mass 2020-07-14 00:00:00 32.8 kg/m2 [facility] Family Index) Practice BP Systolic 2020-07-14 00:00:00 108 mm[Hg] [facility] Body Weight 2020-07-14 00:00:00 185 [lb_av] [facility] BP Diastolic 2020-04-11 00:00:00 68 mm[Hg] [facility] Height 2020-04-11 00:00:00 63 [in_i] [facility] BMI (Body Mass 2020-04-11 00:00:00 31.4 kg/m2 [facility] Family Index) Practice BP Systolic 2020-04-11 00:00:00 118 mm[Hg] [facility] Body Weight 2020-04-11 00:00:00 177 [lb_av] [facility] BP Diastolic 2019-02-10 00:00:00 75 mm[Hg] [facility] Height 2019-02-10 00:00:00 63 [in_i] [facility] BMI (Body Mass 2019-02-10 00:00:00 25.7 [facility] BP Systolic 2019-02-10 00:00:00 120 mm[Hg] [facility] Body Weight 2019-02-10 00:00:00 145.1 [lb_av] [facility] Procedures Procedure Date / Time Performing Clinician Source Performed CONSENT/REFUSAL FOR 2021-07-16 14:50:21 Doctor Unassigned, No [facility] DIAGNOSIS AND TREATMENT Name Medical Branch ASSIGNMENT OF BENEFITS 2021-07-16 14:50:10 Doctor Unassigned, No [facility] Name Medical Branch Hysterectomy (Total) 2019-06-20 00:00:00 [facility] CT, sinuses, w/o 2019-02-10 00:00:00 [facility] Laparoscopic Sleeve 2015-09-20 00:00:00 [facility] Practice Sinus Surgery [facility] Plan of Care Planned Activity Planned Date Details Comments Source Diagnostic Test 2021-08-14 hemoglobin A1C, [facility] F amily Pending 00:00:00 fingerstick [code = Practice hemoglobin A1C, fingerstick] Diagnostic Test 2021-08-14 glucose, Jose L Fami ly Pending 00:00:00 fingerstick, blood Practice [code = glucose, fingerstick, blood] Future Appointment 2021-11-13 Fredrick Phillips 00:00:[address], [place] [address] Instructions [facility] Group Encounters Start End Encounter Admission Attending Care Care Encounter Source Date/Time Date/Time Type Type Clinicians Facility Department ID 2020-03-08 Inpatient EL Scott, [facility] DAYS [id number] [facility] 11:00:00 Mikki [id number] [facility] 2020-03-07 Inpatient EL Scott, [facility] DAYS [id number] [facility] 11:00:00 Mikki [id number] [facility] 2021-08-15 2021-08-15 [facility] [id number] [facility] 00:00:00 00:00:00 [facility] [id number] it y of [place] 4.2.7.2.686 Rod as EDMAR?BLEA [phone] [address] MEDICAL OFFICE BUILDING 2021-08-14 2021-08-14 Outpatient Que_Gene [facility] [id number] [facility] 12:32:00 12:32:00 [id number] Family Reginald bowser 2021-08-14 2021-08-14 Claudy [facility] - [id number] V illage 00:00:00 00:00:00 Theresa [facility] Family GreyJaime - Practi edith VELASCO: [id number] VM_HOU_Shad e [address], [place] [address] , Ph. 2021-07-16 2021-07-16 Clinical Nurse Occupational Medicine Xi, Alie Lab Main [facility] [id number] [facility] 11:00:00 11:15:00 Visit Haritha Kiser [place] 350.1.13. 10 it[place] of [place]2.7.2.686 [place] PROF[place] [phone] Me dical NAL 353 [facility] 2021-07-16 2021-07-16 Outpatient R [facility] [id number] Univers 11:00:00 11:00:00 [id number] ity of [facility] 2021-07-16 2021-07-16 Outpatient R RASHEL, [facility] [id number] Univers 11:00:00 11:00:00 [place]OND[place] ity o f [facility] 2021-07-16 2021-07-16 Orders Doctor DANIEL [id number] Univers 00:00:00 00:00:00 Only Unassigned, MADHU 350.1.13.10 ity of [place] [facility] 4.2.7.2.686 Rod as [id number] [address] 2021-07-13 2021-07-13 Office Rashel [facility] 1.2.840.114 [id number] Univers 16:00:00 17:03:21 [facility] 350.1.13.10 ity of [place] 4.2.7.2.686 Rod as EDMAR?BLEA [phone] Ma dical KNEY [address] MEDICAL OFFICE [facility] 2021-07-02 2021-07-02 Outpatient Daniel_T VFP VFP [id number] 0-20 [facility] 02:19:00 02:19:00 [id number] Family Practic e 2021-05-31 2021-05-31 Outpatient Daniel_T VFP VFP [id number] 0-20 [facility] 03:30:00 03:30:00 [id number] Family Practic e 2021-05-17 2021-05-17 Outpatient Daniel_T VFP VFP [id number] 0-20 [facility] 11:37:00 11:37:00 [id number] Family Practic e 2021-05-17 2021-05-17 Outpatient Bui_Q_WAGDN VFP VFP 114 1030-20 [facility] 11:37:00 11:37:00 U [id number] Family Practic e 2021-05-16 2021-05-16 Outpatient Daniel_T VFP VFP [id number] 0-20 [facility] 05:07:00 05:07:00 [id number] Family Practic e 2021-05-16 2021-05-16 Claudy VFP [place] - [id number] V illage 00:00:00 00:00:00 [place] [facility] Family GreyJaime MD: [id number] ALPHONSO_HOAnabelle_Borisalonzo mague [facility], [address], [place] [address] , Ph. 2021-03-02 2021-03-02 Outpatient Daniel_T VFP VFP [id number] 0-20 [facility] 09:46:00 09:46:00 [id number] Family Practic e 2020-10-13 2020-10-13 Outpatient Daniel_T VFP VFP [id number] [facility] 12:26:00 12:26:00 [id number] Family Practic e 2020-10-13 2020-10-13 Outpatient Daniel_T VFP VFP [id number] [address] 12:26:00 12:26:00 [id number] Family Practic e 2020-10-13 2020-10-13 Outpatient Bui_Q_WAGDN VFP VFP 114 1030-20 [facility] 12:26:00 12:26:00 U [id number] Family Practic e 2020-10-11 2020-10-11 Outpatient Daniel_T VFP VFP [id number] 020 [facility] 09:55:00 09:55:00 [id number] Family Practic e 2020-10-11 2020-10-11 Claudy VFP [place] - [id number] V illage 00:00:00 00:00:00 [facility] Family GreyJaime MD: [id number] ALPHONSO_NICOLAS_Gar[place] mague [facility], [address], [place] [address] , Ph. 2020-10-10 2020-10-10 Outpatient Daniel_T VFP VFP [id number] 020 [facility] 02:11:00 02:11:00 [id number] Family Practic e 2020-07-25 2020-07-25 Orders Doctor SANCHEZ 1.2.840.114 [id number] 00:00:00 00:00:00 Only Unassigned, MADHU 350.1.13.10 [place] [facility] 4.2.7.2.686 [id number] [id number] 2020-07-24 2020-07-24 Clinical Nurse Occupational Medicine Alie Layne [facility] 1.2.840.114 [id number] 14:03:59 14:18:59 Visit Lab Main [place] 350.1.13.10 [place] 4.2.7.2.686 Professio [phone] nal 353 Building 2020-07-19 2020-07-19 Outpatient Daniel_T VFP VFP [id number] 0-20 Village 06:36:00 06:36:00 [id number] Family Practic e 2020-07-19 2020-07-19 Outpatient Bui_Q_WAG VFP VFP [id number] 30-20 [facility] 06:36:00 06:36:00 [id number] Family Practic e 2020-07-14 2020-07-14 Outpatient Daniel_T VFP VFP [id number] 0-20 [facility] 11:54:00 11:54:00 [id number] Family Practic e 2020-07-14 2020-07-14 Outpatient Daniel_T VFP VFP [id number] 0-20 Village 11:54:00 11:54:00 [id number] Family Practic e 2020-07-14 2020-07-14 Claudy VFP [place] - [id number] V illage 00:00:00 00:00:00 [facility] Family GreyJaime - Garth sharma MD: [id number] VM_HOU_Shad e [facility], [address], [place] [address] , Ph. 2020-05-28 2020-05-28 Urgent Provider, [facility] [id number] 17:04:02 17:24:02 Care [facility] 350.1.13.10 Care [place] 4.2.7.2.686 Professio [phone] nal [address] One 2020-05-15 2020-05-15 Clinical Nurse Occupational Medicine Alie Layne [facility] 1.2.840.114 [id number] 15:04:50 15:19:50 Visit Lab Main [place] 350.1.13.10 [place] 4.2.7.2.686 [facility] [phone] [address] 2020-05-15 2020-05-15 Orders Doctor DANIEL 1.2.840.114 [id number] 00:00:00 00:00:00 Only Unassigned, MADHU 350.1.13.10 [place] [facility] 4.2.7.2.686 [id number] [id number] 2020-05-05 2020-05-05 Laboratory Only, Adc [facility] 1.2.840.114 [id number] 14:37:30 14:52:30 Only Test [place] 350.1.13.10 [place] 4.2.7.2.686 Alicia [id number] [facility] 2020-04-15 2020-04-15 Outpatient Daniel_T VFP VFP [id number] [facility] 01:55:00 01:55:00 [id number] Family Practic e 2020-04-15 2020-04-15 Outpatient Bui_Q_WAG VFP VFP [id number] [facility] 01:55:00 01:55:00 [id number] Family Practic e 2020-04-11 2020-04-11 Outpatient Daniel_T VFP VFP [id number] 20 [facility] 11:57:00 11:57:00 [id number] Family Practic e 2020-04-11 2020-04-11 Claudy VFP [place] - [id number] V illage 00:00:00 00:00:00 [facility] Family Grey, Medical - Practi edith MD: 95801 VM_HOU_Feliz e [facility], [facility] [address], [place] [address] , Ph. 2020-04-10 2020-04-10 Outpatient Daniel_T VFP VFP [id number] 020 [facility] 05:10:00 05:10:00 [id number] Family Practic e 2020-04-04 2020-04-04 Outpatient Bui_Q_WAG VFP VFP [id number] [facility] 11:25:00 11:25:00 [id number] Family Practic e 2020-03-06 2020-03-06 [facility] [id number] 11:00:00 11:00:00 Mikki [id number] [facility] 2020-02-01 2020-02-01 Clinical Nurse Occupational Medicine Alie Layne [facility] 1.2.840.114 [id number] 08:33:57 08:48:57 Visit Lab Main [place] 350.1.13.10 [place] 4.2.7.2.686 Professio [id number] [address] 2020-02-01 2020-02-01 Orders Doctor DANIEL 1.2.840.114 [id number] 00:00:00 00:00:00 Only Unassigned, MADHU 350.1.13.10 [place] [facility] 4.2.7.2.686 [id number] [id number] 2020-01-13 2020-01-13 Nurse Rashel [facility] 1.2.840.114 [id number] 14:54:12 15:28:24 Visit [facility] 350.1.13.10 [place] 4.2.7.2.686 Professio [phone] [facility] [address] 2020-01-03 2020-01-03 Office Rashel [facility] 1.2.840.114 [id number] 13:16:48 14:12:27 Visit [facility] 350.1.13.10 [place] 4.2.7.2.686 Professio [phone] [place] [address] Office Building [facility] 2019-12-29 2019-12-29 [facility] [id number] [facility] 12:00:00 12:00:00 Jeanine [id number] [facility] 2019-11-04 2019-11-04 Outpatient Holste, [facility] MADHU [id number] [facility] 07:00:00 07:00:00 Jeanine [id number] [facility] 2019-10-28 2019-10-28 [facility] [id number] [facility] 12:00:00 12:00:00 Jeanine [id number] [facility] 2019-02-10 2019-02-10 Timmy RENNER [place] - [id number] Gud[place] 00:00:00 00:00:00 MD Nathan: [address] Group [facility] - [address], Otolaryngol [place] [address] , Ph. Results Test Description Test Time Test Comments Results Result Comments Source Hemoglobin A1c measurement device panel 2021-08-14 10:43:27 Test Item Value Reference Range Interpretation Comme nts Hemoglobin A1C Fingerstick: (test code = Hemoglobin A1C Fingerstick :) 7.0 [facility] in Capillary [id number] 10:39:53 Test Item Value Reference Range Interpretation Comments Blood Glucose: mg/dl (test code = Blood 256 Glucose: mg/dl) [facility] measurement device [id number] 15:03:04 Test Item Value Reference Range Interpretation Comments Hemoglobin A1C Fingerstick: (test code 8.1 = Hemoglobin A1C Fingerstick:) [facility] [Mass/volume] in Capillary [id number] 15:02:56 Test Item Value Reference Range Interpretation Comments Blood Glucose: mg/dl (test code = Blood 136 Glucose: mg/dl) [facility]OM[facility]UM,[id number] 16:42:00 Test Item Value Reference Range Interpretation Comments ENDOMETRIUM,BIOPSY (test code = ENDOMETBX) RUN DATE: 03/09/20 [facility] PAGE 1 RUN TIME: 1751 Specimen Inquiry RUN USER: INTERFACE [facility] [id number] LOC: AIMEE Ahn #: [id number] AGE/SX: /F ROOM: [facility] RE03/07/20REG DR: Mikki Scott MD : 86 BED: A DIS: 03/08/20 STATUS: DIS Jack TLOC: SPEC #: [id number] RECD: 03/08/20 STATUS: CHELSEA REQ #: [id number] EARLE: 03/08/20- SUBM DR: Mikki Scott MD ENTERED: 03/08/20 SP TYPE: ENDOMETBX OTHR DR: ORDERED: LEVEL IV CODES: D22211 - ENDOMETRIUM, NO PROCEDURES: LEVEL IV (Incomplete) TISSUES: ENDOMETRIUM, NOS - MULTIPLE SPECIMEN CLINICAL HISTORY 29 year old, pelvic pain (kr) FINAL DIAGNOSIS Left anterior culdesac endometriosis, excision: peritoneal tissue with focal fibrosis Left pelvic sidewall endometriosis #1, excision: endometriosis Left pelvic sidewall endometriosis #2, excision: endometriosis Left uterosacral endometriosis, excision: endometriosis Posterior cervix endometriosis, excision: endometriosis Right pelvic sidewall endometriosis, excision: endometriosis Uterus, bilateral fallopian tubes, hysterectomy and bilateral salpingectomy: cervix - chronic papillary endocervicitis and parakeratosis - no dysplasia or malignancy identified endometrium - benign, weakly proliferative myometrium - no significant pathologic alteration uterine serosa - benign fibrous adhesions right and left fallopian tubes - no significant pathologic alteration CPT code(s): 53524 x6, 61169 ls/wpd CONTINUED ON NEXT PAGE RUN DATE: 03/09/20 [facility] PAGE 2 RUN TIME: 1751 Specimen Inquiry RUN USER: INTERFACE SPEC #: [id number] PATIENT: SIDNEY ROBERTSON #[id number] (Continued) GROSS DESCRIPTION ANATOMIC SOURCE OF TISSUE (per Requisition): 1. Left anterior culdesac endometriosis 2. Left pelvic sidewall endometriosis #1 3. Left pelvic sidewall endometriosis #2 4. Left uterosacral endometriosis 5. Posterior cervix endometriosis 6. Right pelvic sidewall endometriosis 7. Uterus, cervix, bilateral fallopian tubes Each specimen is labeled with the patient's name and medical record number. Specimen #1 is designated "left anterior culdesac endometriosis" and consists of two yellow soft tissues measuring 0.4 cm each. The tissues are submitted in toto in A1. Specimen #2 is designated "left pelvic sidewall endometriosis #1" and consists of a 2 x 1 x 0.5 cm barber-ramírez soft tissue. The tissue is submitted in toto in B1. Specimen #3 is designated "left pelvic sidewall endometriosis #2" and consists of a 1 x 0.7 x 0.2 cm barber-ramírez soft tissue. The tissue is submitted in toto in C1. Specimen #4 is designated "left uterosacral endometriosis" and consists of two barber-yellow soft tissues measuring 1 and 1.1 cm. The tissues are submitted in toto in D1. Specimen #5 is designated "posterior cervix endometriosis" and consists of a 0.5 cm barber-yellow soft tissue. The tissue is submitted in toto in E1. Specimen #6 is designated "right pelvic sidewall endometriosis" and consists of a 3.5 x 1.5 x 0.6 cm white-ramírez soft tissue. The tissue is sectioned and entirely submitted in F1. Specimen #7 is designated "uterus, cervix, bilateral fallopian tubes" and consists of an 85 gm, 7 x 4.5 x 4 cm uterus with cervix (2.5 x 2.5 cm with a 0.5 cm ovoid os) and bilateral tubes (5.5 x 0.7 cm and 4.5 x 0.7 cm). The serosa is barber-pink with pink-purple adhesions and attached barber-yellow fatty tissue. The specimen is bivalved to reveal a 3.2 x 1.4 cm barber-pink endometrial cavity. The endometrial thickness averages 0.1 cm. The myometrium is barber-pink with a 1.5 cm average thickness. The endocervix is barber-pink. The ectocervix is white-pink and dull. The right fallopian tube is pink-purple with fimbriae. Sectioning reveals a pinpoint lumen. The left fallopian tube is pink-purple with fimbriae. Sectioning reveals a pinpoint lumen. [employer] sections are submitted as follows: CONTINUED ON NEXT PAGE RUN DATE: 03/09/20 [facility] PAGE 3 RUN TIME: 1750 Specimen Inquiry RUN USER: INTERFACE SPEC #: [id number] PATIENT: SIDNEY ROBERTSON #[id number] (Continued) GROSS DESCRIPTION (Continued) G1 - serosal adhesions and fatty tissue G2 - anterior cervix G3 - posterior cervix G4 - anterior endometrium G5 - posterior endometrium G6 - right fallopian tube G7 - left fallopian tube michelle 03/08/20 Signed Mariam Aparicio MD 03/09/20 1642 END OF REPORT CBC W/AUTO [id number] 06:58:00 Test Item Value Reference Range Interpretation [...] REQUIRED (test NORMAL NORMAL code = PLTMR) [id number] 06:50:00 Test Item Value Reference Range Interpretation Comments GLUBED (test code = GLUBED) 130 mg/dL 65-110 H [id number] 23:39:00 Test Item Value Reference Range Interpretation Comments GLUBED (test code = GLUBED) 266 mg/dL 65-110 H [id number] 17:06:00 Test Item Value Reference Range Interpretation Comments GLUBED (test code = GLUBED) 219 mg/dL 65-110 H [id number] 14:17:00 Test Item Value Reference Range Interpretation Comments GLUBED (test code = GLUBED) 135 mg/dL 65-110 H [id number] 09:59:00 Test Item Value Reference Range Interpretation Comments GLUBED (test code = GLUBED) 110 mg/dL 65-110 N AG HEPATITIS B [id number] 14:47:00 Test Item Value Reference Range Interpretation Comments AG HEPATITIS B SURFACE (test code NONREACTIVE NONREACTIVE = HBSAG) IS CONSENT FORM SIGNED FOR HIV TESTING? YAB HEPATITIS C [id number] 14:47:00 Test Item Value Reference Range Interpretation Comments AB HEPATITIS C (test code = NONREACTIVE NONREACTIVE HCVAB) SIGNAL TO CUTOFF (test code = 0.09 <0.80 N CUTOFF) IS CONSENT FORM SIGNED FOR HIV TESTING? YAB HIV 1 14:47:00 Test Item Value Reference Range Interpretation Comments AB HIV 1 2 (test NONREACTIVE NONREACTIVE Done by Juli Blake code = [id number]) 4th Gen HIV Ag/Ab Combo Screen IS CONSENT FORM SIGNED FOR HIV TESTING? YAG HEPATITIS B [id number] 14:15:00 Test Item Value Reference Range Interpretation Comments AG HEPATITIS B SURFACE (test code NONREACTIVE NONREACTIVE = HBSAG) IS CONSENT FORM SIGNED FOR HIV TESTING? YAB HEPATITIS C [id number] 14:15:00 Test Item Value Reference Range Interpretation Comments AB HEPATITIS C (test code = HCVAB) NONREACTIVE SIGNAL TO CUTOFF (test code = CUTOFF) <0.80 IS CONSENT FORM SIGNED FOR HIV TESTING? YAB HIV 1 14:15:00 Test Item Value Reference Range Interpretation Comments AB HIV 1 2 (test code = JKU95YJ) NONREACTIVE IS CONSENT FORM SIGNED FOR HIV TESTING? YURINALYSIS [id number] 14:14:00 Test Item Value Reference Range Interpretation [...] URINE SAMPLE: CLEAN CATCHCOVID 19 Asymptomatic IH [id number] 13:50:00 Test Item Value Reference Range Interpretation [...] of Accreditation. This test is only authori makayla for the duration of thedeclaration that circumstances e xist justifying theauthorizatio n of emergency use o f in vitro diagnostic test sfor detection and/o r diagnosis of CO VID-19 under Zzhzrox82 4(b)(1) of the Act, 21 U.S .C. 360bbb-3(b)(1), unless theauthorizatio n is terminated or r evoked sooner. HCG SERUM [id number] 13:43:00 Test Item Value Reference Range Interpretation Comments HCG SERUM QUAL (test code = HCGQL) NEGATIVE CBC W/AUTO [id number] 13:22:00 Test Item Value Reference Range Interpretation [...] NORMAL NORMAL code = PLTMR) - DUP AB/PEL/SC/[id number] 07:44:00 Patient Name: SIDNEY ROBERTSON Unit No: [id number] EXAMS: CPT CODE: [id number] DUP AB/PEL/SC/LTD 85093 CLINICAL HISTORY: Pelvic pain. COMPARISON: August 21, [...] Technologist: Janelle Sam RDMS Probe: TrnscrbdD/ (0744) tDHARMESHYOS Orig Print D/T: S: 11/04/2019 (0747) [facility] NAME: SIDNEY ROBERTSON Radiology Department PHYS: CIARA Jeanine Palm [address] : 1990 AGE: 29 SEX: F [place], [place] [address] LOC: Louie.RADPHONE #: [phone] EXAM DATE: 11/04/2019 STATUS: REG CLI FAX #: [phone] RAD NO: Page 1 Signed Report Patient Name: SIDNEY ROBERTSON Unit No: [id number] EXAMS: CPT CODE: [id number] DUP AB/PEL/SC/LTD 97877 <Continued> [facility] NAME: SIDNEY ROBERTSON Radiology Department PHYS: Jeanine Wills [address] : 1990 AGE: 29 SEX: F [place], [place] [address] LOC: MargarethRAD PHONE #: [phone] EXAM DATE: 11/04/2019 STATUS: REG CLI FAX #: [phone] RAD NO: Page 2 Signed Report- US PELVIS [id number] 07:44:00 Patient Name: SIDNEY ROBERTSON Unit No: [id number] EXAMS: CPT CODE: [id number] US PELVIS COMPLETE 81166 CLINICAL HISTORY: Pelvic pain. COMPARISON: August 21, [...] Technologist: Janelle Sam RDMS Probe: TrnscrbdD/ (0744) BrunaYOS Orig Print D/T: S: 11/04/2019 (0747) [facility] NAME: SIDNEY ROBERTSON Radiology Department PHYS: Jeanine Wills [address] : 1990 AGE: 29 SEX: F [place], [place] [address] LOC: MargarethRADPHONE #: [phone] EXAM DATE: 11/04/2019 STATUS: REG CLI FAX #: [phone] RAD NO: Page 1 Signed Report Patient Name: SIDNEY ROBERTSON Unit No: [id number] EXAMS: CPT CODE: [id number] US PELVIS COMPLETE 34404 <Continued> [facility] NAME: SIDNEY ROBERTSON Radiology Department PHYS: TEOFILOVALERIA.Abram Jeanine Palm [address] : 1990 AGE: 29 SEX: F [place], [place] [address] LOC: MargarethRAD PHONE #: [phone] EXAM DATE: 11/04/2019 STATUS: REG CLI FAX #: [phone] RAD NO: Page 2 Signed Report- US TRANSVAGINAL [id number] 07:44:00 Patient Name: SIDNEY ROBERTSON Unit No: [id number] EXAMS: CPT CODE: [id number] US TRANSVAGINAL W/PELVIS 17067 CLINICAL HISTORY: Pelvic pain. COMPARISON: August 21, [...] MD CC: Jeanine Palm MD Technologist: Janelle Sam, [facility] Probe: [id number] TrnscrbdD/ (0744) Cha Orig Print D/T: S: 11/04/2019 (0747) [facility] NAME: SIDNEY ROBERTSON Radiology Department PHYS: [facility] Jeanine Palm [address] : 1990 AGE: 29 SEX: F [place] [address] LOC: MargarethRADPHONE #: [phone] EXAM DATE: 11/04/2019 STATUS: REG CLI FAX #: [phone] RAD NO: Page 1 Signed Report Patient Name: SIDNEY ROBERTSON Unit No: [id number] EXAMS: CPT CODE: [id number] US TRANSVAGINAL W/PELVIS 38425 <Continued> [facility] NAME: SIDNEY ROBERTSON Radiology Department PHYS: [facility] Jeanine Palm [address] : 1990 AGE: 29 SEX: F [place] [id number] LOC: F.RAD PHONE #: [phone] EXAM DATE: 11/04/2019 STATUS: REG CLI FAX #: [phone] RAD NO: Page 2 Signed Report
[2021-08-21 09:08] LABS: Absolute Lymphocytes (CBC) 1.2 K/uL (0.7-4.9); Hematocrit 41.3 % (36.0-45.0); Lymphocytes % 12.9 % (15.3-44.8); MPV 11.3 fL (7.6-11.3); RBC Red Blood Cell Count 4.48 M/uL (3.86-4.86)
[2021-08-21 09:09] LABS: Protime INR 1.1
[2021-08-21 09:32] LABS: ALT/SGPT 20 U/L (12-78); AST/SGOT 12 U/L (15-37); Albumin 3.9 g/dL (3.4-5.0); Alkaline Phosphatase 69 U/L (45-117); BUN Blood Urea Nitrogen 22 mg/dL (7-18); Bicarbonate 23 mmol/L (21-32); Bilirubin Direct 0.2 mg/dL (0-0.2); Bilirubin Total 0.7 mg/dL (0.2-1.0); Glucose Level 267 mg/dL (74-106); Magnesium 1.9 mg/dL (1.8-2.4); NT PRO-BNP 13 pg/mL (<125); Potassium 3.5 mmol/L (3.5-5.1); Protein, Total 7.2 g/dL (6.4-8.2); Sodium Level 136 mmol/L (136-145); Troponin High Sensitivity 4.7 pg/mL (<58.9)
[2021-08-21 09:41] LABS: Urine Blood Trace-lysed (Negative); Urine Glucose 2+ (Negative); Urine Protein Negative (Negative); Urine pH 5.5 (5.0-7.0)
[2021-08-21 10:00] LABS: Blood Morphology Comment NOTED (NOT SEEN); Hypochromasia 1+; Platelet Estimate ADEQ; Platelets, Giant FEW; White Blood Cell Scan OK (OK)
--- NOTE | 2021-08-21 11:03 | RAD REPORT ---
EXAM DESCRIPTION: RAD - Chest Single View - 08/21/2021 10:25 am CLINICAL HISTORY: PALPITATIONS Chest pain. COMPARISON: Chest Single View dated 10/14/2019; CHEST SINGLE VIEW dated 12/07/2010 FINDINGS: Portable technique limits examination quality. The lungs are grossly clear. The heart is normal in size. No displaced fractures. IMPRESSION: No acute intrathoracic process suspected.
[2021-08-21] MEDS ORDERED: NA CHLORIDE 0.9% 1,000 ML ONE (11:08)
[2021-08-21] MEDS ORDERED: ONDANSETRON 4 MG/2 ML VIAL ONE (11:58)
--- NOTE | 2021-08-21 12:24 | ER ---
Nurse's Notes [facility] Name: Lilibeth Sharif Age: 31 yrs Sex: Female : 1990 Arrival Date: 08/21/2021 Time: 08:05 Bed 9 Private MD: Diagnosis: Dehydration;Hyperglycemia, unspecified;Palpitations Presentation: 08/21 08:32 Chief complaint: Patient states: Noticed palpations, nausea while driving to work today ll1 around 7:15 am. HR was 145. Blood sugar has been running a higher than usual (400 range) for 5 to 6 hours. Took her metoprolol at 7:30. Feels a little better now. Coronavirus screen: Vaccine status: Patient reports receiving the 2nd dose of the covid vaccine. Client denies travel out of the [place] in the last 14 days. At this time, the client does not indicate any symptoms associated with coronavirus-19. Ebola Screen: Patient denies travel to an Ebola-affected area in the 21 days before illness onset. Initial Sepsis Screen: Does the patient meet any 2 criteria? No. Patient's initial sepsis screen is negative. Does the patient have a suspected source of infection? No. Patient's initial sepsis screen is negative. Risk Assessment: Do you want to hurt yourself or someone else? Patient reports no desire to harm self or others. Onset of symptoms was August 21, 2021. 08:32 Method Of Arrival: Ambulatory ll1 08:32 Acuity: JAMISON 3 ll1 Triage Assessment: 08:49 General: Appears uncomfortable, Behavior is cooperative, appropriate for age. Pain: ll1 Denies pain. Neuro: No deficits noted. Cardiovascular: Reports lightheadedness, nausea, palpitations. GI: Reports nausea. 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 - Social history:: Smoking status: Patient denies any tobacco usage or history of. Screenin:50 Abuse screen: Denies threats or abuse. Nutritional screening: No deficits noted. ll1 Tuberculosis screening: No symptoms or risk factors identified. 12:25 Fall Risk None identified. ld1 Assessment: 12:25 General: Appears in no apparent distress. comfortable, Behavior is calm, cooperative, ld1 appropriate for age. Pain: Denies pain. Neuro: Level of Consciousness is awake, alert, obeys commands, Oriented to person, place, time, situation. Cardiovascular: Capillary refill < 3 seconds Patient's skin is warm and dry. Rhythm is sinus rhythm. Respiratory: Airway is patent Respiratory effort is even, unlabored. GI: Abdomen is flat, non-distended. : No signs and/or symptoms were reported regarding the genitourinary system. EENT: No signs and/or symptoms were reported regarding the EENT system. Derm: No signs and/or symptoms reported regarding the dermatologic system. Musculoskeletal: No signs and/or symptoms reported regarding the musculoskeletal system. 13:13 Reassessment: No changes from previously documented assessment. Patient and/or family ll1 updated on plan of care and expected duration. Pain level reassessed. Patient is alert, oriented x 3, equal unlabored respirations, skin warm/dry/pink. Patient states feeling better. Pain: Denies pain. Pain does not radiate. Vital Signs: 08:32 BP 98 / 65; Pulse 100; Resp 16; Temp 97.7; Pulse Ox 99% ; Pain 0/10; ll1 08:53 BP 105 / 71; ll1 12:25 BP 103 / 65; Pulse 86; Resp 18; Pulse Ox 100% on R/A; ld1 13:12 BP 90 / 54; Pulse 88; Resp 16; Pulse Ox 100% ; ll1 ED Course: 08:05 Patient arrived in ED. ds1 08:08 Jareth Jo NP is PHCP. pm1 08:08 Arun Cheney MD is Attending Physician. pm1 08:29 Arm band placed on. ll1 08:35 Triage completed. ll1 10:27 XRAY Chest (1 view) In Process Unspecified. EDMS 11:08 Yajaira Ovalle, RHONDA is Primary Nurse. ss 13:13 Patient has correct armband on for positive identification. Call light in reach. Side ll1 rails up X 1. Pulse ox on. NIBP on. 13:13 No provider procedures requiring assistance completed. Patient maintains SpO2 ll1 saturation greater than 95% on room air. 13:58 IV discontinued, intact, bleeding controlled, No redness/swelling at site. Pressure ss dressing applied. Administered Medications: 11:08 Drug: NS 0.9% 1000 ml Route: IV; Rate: 1000 ml; Site: right antecubital; ss 11:09 Drug: NS 0.9% 1000 ml Route: IV; Rate: 1000 ml; Site: right antecubital; ss 13:31 Follow up: IV Status: Completed infusion; IV Intake: 2000ml ss 12:03 Drug: Zofran (Ondansetron) 4 mg Route: IVP; Site: right antecubital; ss 13:31 Follow up: Response: No adverse reaction ss Intake: 13:31 IV: 2000ml; Total: 2000ml. ss Outcome: 12:24 Discharge ordered by MD. pm1 13:58 Patient left the ED. ld1 13:58 Discharged to home ambulatory. ss 13:58 Condition: good 13:58 Discharge instructions given to patient, family, Instructed on discharge instructions, follow up and referral plans. Demonstrated understanding of instructions, follow-up care. Signatures: Dispatcher [employer] [facility] Demetra Garcia ds1 Yajaira Ovalle RN RN ss Marinas, Patrick, AUNDREA EARTH MOVER pm1 Prasanth Alvarado RN RN ll1 America Acosta RN RN ld1
--- NOTE | 2021-08-21 12:24 | EDPHYS ---
Physician Documentation [facility] Name: Lilibeth Sharif Age: 31 yrs Sex: Female : 1990 Arrival Date: 08/21/2021 Time: 08:05 Bed 9 Private MD: ED Physician Arun Cheney HPI: 08/21 08:49 This 31 yrs old Female presents to ER via Ambulatory with complaints of pm1 Irregular Pulse. 08:49 The patient presents with a history of irregular heart beat, heart racing. Context: The pm1 symptoms occur while driving. Onset: The symptoms/episode began/occurred this morning. Duration: The patient or guardian reports a single episode, that is now resolved, after taking metoprolol. Modifying factors: The symptoms are alleviated by prescription medication. Associated signs and symptoms: Pertinent positives: hyperglycemia over the night, Pertinent negatives: chest pain, SOB. Severity of symptoms: in the emergency department the symptoms have improved Pain is currently a 0 / 10. The patient has not recently seen a physician. 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 - Social history:: Smoking status: Patient denies any tobacco usage or history of. ROS: 08:49 Constitutional: Negative for fever, chills, and weight loss. pm1 08:49 Respiratory: Negative for shortness of breath, cough, wheezing, and pleuritic chest pain, Abdomen/GI: Negative for abdominal pain, nausea, vomiting, diarrhea, and constipation, Back: Negative for injury and pain, MS/Extremity: Negative for injury and deformity, Skin: Negative for injury, rash, and discoloration, Neuro: Negative for headache, weakness, numbness, tingling, and seizure. 08:49 Cardiovascular: Positive for palpitations, Negative for chest pain, edema. 08:49 All other systems are negative. Exam: 08:49 Constitutional: This is a well developed, well nourished patient who is awake, alert, pm1 and in no acute distress. Head/Face: Normocephalic, atraumatic. 08:49 Back: No spinal tenderness. No costovertebral tenderness. Full range of motion. Skin: Warm, dry with normal turgor. Normal color with no rashes, no lesions, and no evidence of cellulitis. MS/ Extremity: Pulses equal, no cyanosis. Neurovascular intact. Full, normal range of motion. 08:49 Eyes: Exam is negative for acute changes, Extraocular movements: no acute changes, Conjunctiva: no acute changes, no injection. 08:49 ENT: Exam is negative for acute changes, Mouth: no acute changes, Lips: normal, moist, Oral mucosa: normal, pink and intact, moist. 08:49 Cardiovascular: Exam negative for acute changes, Rate: normal, actual rate is 100 bpm, Rhythm: regular, Pulses: no pulse deficits are appreciated, Heart sounds: normal, normal S1and S2. 08:49 Respiratory: Exam negative for acute changes, respiratory distress, shortness of breath, Breath sounds: are clear throughout. 08:49 Abdomen/GI: Inspection: abdomen appears normal, Palpation: abdomen is soft and non-tender, in all quadrants. 08:49 Neuro: Exam negative for acute changes, Orientation: is normal, Mentation: is normal, Motor: moves all fours. Vital Signs: 08:32 BP 98 / 65; Pulse 100; Resp 16; Temp 97.7; Pulse Ox 99% ; Pain 0/10; ll1 08:53 BP 105 / 71; ll1 12:25 BP 103 / 65; Pulse 86; Resp 18; Pulse Ox 100% on R/A; ld1 13:12 BP 90 / 54; Pulse 88; Resp 16; Pulse Ox 100% ; ll1 MDM: 08:47 Patient medically screened. pm1 12:23 Data reviewed: vital signs. Data interpreted: Pulse oximetry: on room air is 99 %. pm1 Interpretation: normal. Counseling: I had a detailed discussion with the patient and/or guardian regarding: the historical points, exam findings, and any diagnostic results supporting the discharge/admit diagnosis, lab results, radiology results, the need for outpatient follow up, to return to the emergency department if symptoms worsen or persist or if there are any questions or concerns that arise at home. 08/21 08:43 Order name: Basic Metabolic Panel; Complete Time: 10:08 pm1 08/21 08:43 Order name: CBC with Diff; Complete Time: 10:08 pm1 08/21 08:43 Order name: LFT's; Complete Time: 10:08 pm1 08/21 08:43 Order name: Magnesium; Complete Time: 10:08 pm1 08/21 08:43 Order name: NT PRO-BNP; Complete Time: 10:08 pm1 08/21 08:43 Order name: PT-INR; Complete Time: 09:20 pm1 08/21 08:43 Order name: Troponin HS; Complete Time: 10:08 pm1 08/21 08:43 Order name: XRAY Chest (1 view); Complete Time: 11:04 pm1 08/21 08:43 Order name: TSH; Complete Time: 10:08 pm1 08/21 09:12 Order name: CBC Smear Scan; Complete Time: 10:08 EDMS 08/21 09:41 Order name: Urine Dipstick-Ancillary; Complete Time: 10:08 EDMS 08/21 09:46 Order name: Urine --Ancillary (enter results); Complete Time: 11:03 bd 08/21 08:43 Order name: EKG; Complete Time: 08:44 pm1 08/21 08:43 Order name: Cardiac monitoring; Complete Time: 08:45 pm1 08/21 08:43 Order name: EKG - Nurse/Tech; Complete Time: 08:45 pm1 08/21 08:43 Order name: IV Saline Lock; Complete Time: 08:52 pm1 08/21 08:43 Order name: Labs collected and sent; Complete Time: 08:52 pm1 08/21 08:43 Order name: O2 Per Protocol; Complete Time: 11:00 pm1 08/21 08:43 Order name: O2 Sat Monitoring; Complete Time: 11:00 pm1 08/21 08:43 Order name: Urine Dipstick-Ancillary (obtain specimen); Complete Time: 11:00 pm1 08/21 08:43 Order name: Urine Test (obtain specimen); Complete Time: 11:00 pm1 Administered Medications: 11:08 Drug: NS 0.9% 1000 ml Route: IV; Rate: 1000 ml; Site: right antecubital; ss 11:09 Drug: NS 0.9% 1000 ml Route: IV; Rate: 1000 ml; Site: right antecubital; ss 13:31 Follow up: IV Status: Completed infusion; IV Intake: 2000ml ss 12:03 Drug: Zofran (Ondansetron) 4 mg Route: IVP; Site: right antecubital; ss 13:31 Follow up: Response: No adverse reaction ss Disposition: 14:53 Co-signature as Attending Physician, Arun Cheney MD. rn Disposition Summary: 08/21/21 12:24 Discharge Ordered Location: Home pm1 Problem: new pm1 Symptoms: have improved pm1 Condition: Stable pm1 Diagnosis - Dehydration pm1 - Hyperglycemia, unspecified pm1 - Palpitations pm1 Followup: pm1 - With: Emergency Department - When: As needed - Reason: Worsening of condition Followup: pm1 - With: Private Physician - When: 2 - 3 days - Reason: Recheck today's complaints, Continuance of care, Re-evaluation by your physician Discharge Instructions: - Discharge Summary Sheet pm1 - Dehydration, Adult pm1 - Hyperglycemia pm1 - Palpitations pm1 - Blood Glucose Monitoring, Adult pm1 - Rehydration, Adult pm1 Forms: - Medication Reconciliation Form pm1 - Thank You Letter pm1 - Antibiotic Education pm1 - Prescription Opioid Use pm1 - Work release form Signatures: Dispatcher [employer] EDArun Mares MD MD rn Smirch, Shelby RN RN ss Jareth Jo, AUNDREA COATING MIXER pm1 Prasanth Alvarado, RN RN 1
[2021-08-21 14:26] VITALS: TEMP 97.7
[2021-08-21 14:29] VITALS: O2SAT 100
[2021-08-21 14:30] VITALS: BP 90/54
--- NOTE | 2021-08-22 12:57 | EKG ---
Test Date: 2021-08-21 Test Time: 08:43:12 Statistical Developer: BRIGIDO MEASUREMENT RESULTS: Intervals: Rate: 100 NH: 138 QRSD: 86 QT: 342 QTc: 441 [place]: P: 74 NH: 138 QRS: 101 T: 63 INTERPRETIVE STATEMENTS: Normal sinus rhythm Rightward axis Borderline ECG Compared to ECG 10/14/2019 06:38:08 No significant changes Electronically Signed On 08-22-21 12:52:22 CDT by Priyank Suarez
== END 2021-08-21 13:58 | disposition home or self-care (01) ==
LOC: ER 08:03
DX: E86.0 Dehydration (principal); E11.65 Type 2 diabetes mellitus with hyperglycemia
CPT/HCPCS: 93005; 85025; 80048; 36415; 83735; 81025; 85610; 80076; 84443; 81003; 84484; 83880; 71045; J7030; J2405; 96361; 96374; 99284

== ENCOUNTER 2021-09-21 03:33 | Inpatient (IN) | payer BC ==
--- OUTSIDE RECORDS SUMMARY | 2021-09-21 03:37 | XMS REPORT | Continuity of Care Document ---
:1990 Author Organization [facility] t Address [address] [place] [address] Care Team Providers Name Role Phone Rashel VELASCO, A Primary Care Physician [email or web address] Attending Clinician Unavailable Doctor Unassigned, Name Attending Clinician Unavailable Ramon VELASCO Attending Clinician Que_Gene Attending Clinician Unavailable Pob, Lab Main Attending Clinician Unavailable Rashel VELASCO, Arsenio Attending Clinician Arsenio KISER Attending Clinician Unavailable Provider, Urgent Care Attending Clinician Unavailable Only, Test Attending Clinician Unavailable Eduardo Scott Attending Clinician Unavailable Arsenio Palm Attending Clinician Unavailable [email or web address] Admitting Clinician Unavailable Que_Gene Admitting Clinician Unavailable WONDIFUL Admitting Clinician Unavailable Physician, Primary or Family Admitting Clinician Unavailabl e Payers Payer Name Policy Type Policy Number Effective Date Expiration Date S ource [place] [id number] 2020 00:00:00 [place] Problems Condition Condition Condition Status Onset Resolution Last Treating Co mments Source Name Details Category Date Date Treatment Clinician Date Type 1 Type 1 Problem Active [place] diabetes Diabetes 3-05 Family mellitus Mellitus 00:00: Practi c 00 e Dizziness Dizziness Disease Active Uni vers 2-04 ity of 00:00: [place] [facility] Dyspnea on Dyspnea on Disease Active U nivers exertion exertion 2-04 ity of 00:00: [place] [facility] Fatigue, Fatigue, Disease Active Unive rs unspecifie unspecifie 2-04 it y of d type d type 00:00: [place] [facility] Clammy Clammy Disease Active Univers skin skin 2-04 ity of 00:00: [place] [facility] Rhinorrhea Rhinorrhea Disease Active U nivers 2-04 ity of 00:00: [place] [facility] Viral Viral Disease Active Univers syndrome syndrome 2-04 ity of 00:00: [place] [facility] Obesity Obesity Problem Active [place] 6-23 Family 00:00: Practic 00 e General General Problem Active [place] finding of Finding of 7 Fa [facility] observatio Observatio 00:00: Pr actic n of n of 00 e patient Patient Finding Finding Problem Active [place] related to Related to 1-30 Fa anjelica [...] 00 e Insulin Insulin Problem Active 2016-04 [facility] pump Pump 0-10 Family present Present [...] of ricular ricular 00:00: g of this [place] tachycardi tachycardi 00 note Me dical a) a) might be Branch different from the original. Dr. Pendleton ([facility]), followed q6mos Diabetic Diabetic Disease Active Unive [...] different from the original. ICD10 Diagnosis Term Patient Support Assistant Utility Obesity Obesity Disease Active Overview: Univ ers 5-02 Formattin ity of 00:00: g of this note Medical might be Branch different from the original. ICD10 Diagnosis Term Patient Support Assistant Utility Diabetes Diabetes Disease Active Overview: Un leeann mellitus mellitus 2-23 Formattin ity of 00:00: g of this note Medical might be Branch different from the original. 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 Claudy [place] Sinusitis Sinusitis Problem Active Mat agor [...] fluconaz DA Active U 2019- [facility] [place] tramadol DA Active U 2019- [facility] -[facility] 00:[facility]: [facility] 00 l [...] 00 l [facility] [place] Sulfa DA Active [place] 2017-0 [facility] (Sulfona -18 [facility] mide 00:00: Hospita Antibiot 00 l of ics) [place] morphine DA Active SV 2017-0 [facility] 4-18 [facility] 00:[facility] [place] hydrocod DA Active [place] 2017-0 [facility] one 4-18 [facility] 00:[facility]: [facility] [place] tramadol DA Active [place] 2017-0 [facility] 4-18 [facility] 00:[facility]: [facility] [place] Sulfa DA Active [place] ITCHING 2017-0 [facility] (Sulfona 4-18 Woman's mide 00:00: Hospita Antibiot 00 l of ics) [place] morphine DA Active SV SHORTNESS OF 2017-0 [facility] A BREATH 4-18 [facility] 00:00: [facility] [place] hydrocod DA Active [place] ITCHING 2017-0 [facility] one 4-18 [facility] 00:[facility]: [facility] [place] tramadol DA Active [place] ITCH[place] 2017-0 [facility] 4-18 Woman's 00:00: Hospita [...] Medical s Branch MORPHINE DRUG Active ITCHING 2009-0 Univers INGREDI 8-24 ity of 00:00: [place] 00 Medical Branch Morphine Propensi Active Shortness of 2010-0 Univers ty to Breath 8-24 ity of [...] Date Stop Date Quantity Comments Source History [facility] o f [place] Alcohol Frequency Medical Branch History [facility] o f [place] Alcohol Std Drinks Medica l Branch History [facility] o f [place] Alcohol Binge Medical Bra formerly [facility] Exposure to Not sure [facility] SARS-CoV-2 (event) Medica l Branch Alcohol intake 2021-07-15 2021-07-15 .14 /d [facility] 00:00:00 00:00:00 Medical Branch Alcohol Comment 2014-07-15 2014-07-15 social [facility] 00:00:00 00:00:00 Medical Branch Sex [birth year] At [birth year] [facility] 00:00:00 00:00:00 Medical Branch Smoking Status Start Date Stop Date Source Never smoker [facility] Medical Branch Medications Ordered Filled Start Stop Current Ordering Indication Dosage Frequency Signature Comments Components Source Medication Medication Date Date Medication? Clinician (SIG) Name Name ketorolac 2021- No [id number] 60mg Uni vers (TORADOL) 07-13 ity of injection 22:30: 21:45 [place] 60 mg 00 :00 Medical Branch ketorolac 2021- No [id number] 60mg 60 mg, U nivers (TORADOL) 07-13 Intramuscu ity of injection 22:30: 21:45 [place]CE, [place] 60 mg 00 :00 1 dose, On Medical Fri Branch 07/13/21 at 1730, Routine ketorolac 2021- No [id number] 60mg Uni vers (TORADOL) 07-13 ity of injection 22:30: 21:45 [place] 60 mg 00 :00 Medical Branch ketorolac 2021-0 2021- No [id number] 60mg 60 mg, U nivers (TORADOL) 07-13 Intramuscu ity of injection 22:30: 21:45 [place], ONCE, [place] 60 mg 00 :00 1 dose, On Medical Fri Branch 07/13/21 at 1730, Routine metoprolol Yes Univers succinate 3-17 ity of XL 50 mg 24 00:00: [place] hr tablet [facility] Branch metoprolol Yes Univers succinate 3-17 ity of XL 50 mg 24 00:00: [place] hr tablet Medical Branch metoprolol Yes Univers succinate 3-17 ity of XL 50 mg 24 00:00: [place] hr tablet Medical Branch metoprolol Yes Univers succinate 3-17 ity of XL 50 mg 24 00:00: [place] hr tablet Medical Branch metoprolol Yes Univers succinate 3-17 ity of XL 50 mg 24 00:00: [place] hr tablet 00 [facility] Branch metoprolol Yes Univers succinate 3-17 ity of XL 50 mg 24 00:00: [place] hr tablet Medical Branch WEGOVY 2.4 0 Yes Univers mg/0.75 mL 2-01 ity of PnIj SC 00:00: [place] injection 00 Medical Branch WEGOVY 2.4 2021-0 Yes Univers mg/0.75 mL 2-01 ity of PnIj SC 00:00: [place] injection Medical Branch WEGOVY 2.4 2021-0 Yes Univers mg/0.75 mL 2-01 ity of PnIj SC 00:00: [place] injection Medical Branch WEGOVY 2.4 2021-0 Yes Univers mg/0.75 mL 2-01 ity of PnIj SC 00:00: [place] injection Medical Branch WEGOVY 2.4 2021-0 Yes Univers mg/0.75 mL 2-01 ity of PnIj SC 00:00: [place] injection Medical Branch WEGOVY 2.4 2021-0 Yes Univers mg/0.75 mL 2-01 ity of PnIj SC 00:00: [place] injection Medical Branch SERTraline 2020-04 Yes [id number] 50mg Take 1 U nivers 50 mg 1-16 tablet by ity of tablet 00:00: mouth [place] 00 daily. Medical Branch SERTraline 2020-04 Yes [id number] 50mg Take 1 U nivers 50 mg 1-16 tablet by ity of tablet 00:00: mouth [place] 00 daily. Medical Branch SERTraline 2020-04 Yes [id number] 50mg Take 1 U nivers 50 mg 1-16 tablet by ity of tablet 00:00: mouth [place] 00 daily. Medical Branch SERTraline 2020-04 Yes [id number] 50mg Take 1 U nivers 50 mg 1-16 tablet by ity of tablet 00:00: mouth [place] 00 daily. Medical Branch SERTraline 2020-04 Yes [id number] 50mg Take 1 U nivers 50 mg 1-16 tablet by ity of tablet 00:00: mouth [place] 00 daily. Medical Branch SERTraline 2020-04 Yes [id number] 50mg Take 1 U nivers 50 mg 1-16 tablet by ity of tablet 00:00: mouth [place] 00 daily. Medical Branch ketorolac 2020-04- No [id number] 10mg Take 1 U nivers 10 mg 04-29-27 tablet by ity of tablet 00:00: 00:00 mouth [place] 00 :00 every 6 Medical (six) Branch hours as needed (pain not relieved by acetaminop hen). Take with food. ketorolac 2020-04- No [id number] 10mg Take 1 U nivers 10 mg 04-29-27 tablet by ity of tablet 00:00: 00:00 mouth [place] 00 :00 every 6 Medical (six) Branch hours as needed (pain not relieved by acetaminop hen). Take with food. ketotifen Yes [id number] 1[drp] Place 1 Univers (ZADITOR) 9- 9102 Drop in ity of 0.025 % 00:00: both eyes [place] (0.035 %) 00 2 (two) Medical ophthalmic times Branch solution daily. ketotifen Yes [id number] 1[drp] Place 1 Univers (ZADITOR) 9-13 9102 Drop in ity of 0.025 % 00:00: both eyes [place] (0.035 %) 00 2 (two) Medical ophthalmic times Branch solution daily. ketotifen 2020-0 Yes [id number] 1[drp] Place 1 Univers (ZADITOR) 9-13 9102 Drop in ity of 0.025 % 00:00: both eyes [place] (0.035 %) 00 2 (two) Medical ophthalmic times Branch solution daily. ketotifen 2020-0 Yes [id number] 1[drp] Place 1 Univers (ZADITOR) 9-13 9102 Drop in ity of 0.025 % 00:00: both eyes [place] (0.035 %) 00 2 (two) Medical ophthalmic times Branch solution daily. ketotifen 2020-0 Yes [id number] 1[drp] Place 1 Univers (ZADITOR) 9-13 9102 Drop in ity of 0.025 % 00:00: both eyes [place] (0.035 %) 00 2 (two) Medical ophthalmic times Branch solution daily. ketotifen 0 Yes [id number] 1[drp] Place 1 Univers (ZADITOR) 9- 9102 Drop in ity of 0.025 % 00:00: both eyes [place] (0.035 %) 00 2 (two) Medical ophthalmic times Branch solution daily. T:SLIM X2 2020-0 Yes Univers Crtg 8-05 ity of 00:00: [place] 00 Medical Branch TRUSTEEL 0 Yes Univers INFUSION 8-05 ity of SET 23" 00:00: [place] ISet 00 Medical Branch DEXCOM G6 2020-0 Yes Univers TRANSMITTER 8-05 ity of Mell 00:00: [place] 00 Medical Branch DEXCOM G6 0 Yes Univers [...] INFUSION 8-05 ity of SET 23" 00:00: [place] IS 00 Medical Branch DEXCOM G6 2020-0 Yes Univers TRANSMITTER 8-05 ity of Mell 00:00: [place] 00 Medical Branch DEXCOM G6 2020-0 Yes Univers SENSOR Mell 8-05 ity of 00:00: [place] 00 Medical Branch T:SLIM X2 1-0 Yes Univers Crtg 8-05 ity of 00:00: [place] 00 Medical Branch TRUSTEEL 2020-0 Yes Univers INFUSION 8-05 ity of SET 23" 00:00: [place] IS 00 Medical Branch DEXCOM G6 2020-0 Yes Univers TRANSMITTER 8-05 ity of Mell 00:00: [place] 00 Medical Branch DEXCOM G6 2020-0 Yes Univers SENSOR Mell 8-05 ity of 00:00: [place] 00 Medical Branch T:SLIM X2 2020-0 Yes Univers Crtg 8-05 ity of 00:00: [place] 00 Medical Branch TRUSTEE 2020-0 Yes Univers INFUSION 8-05 ity of SET 23" 00:00: [place] IS 00 Medical Branch DEXCOM G6 2020-0 Yes Univers TRANSMITTER 8-05 ity of Mell 00:00: [place] 00 Medical Branch DEXCOM G6 2020-0 Yes Univers SENSOR Mell 8-05 ity of 00:00: [place] 00 Medical Branch T:SLIM X2 2020-0 Yes Univers Crtg 8-05 ity of 00:00: [place] 00 Medical Branch TRUSTEE 2020-0 Yes Univers INFUSION 8-05 ity of SET 23" 00:00: [place] IS 00 Medical Branch DEXCOM G6 2020-0 Yes Univers TRANSMITTER 8-05 ity of Mell 00:00: [place] 00 Medical Branch DEXCOM G6 2020-0 Yes Univers SENSOR Mell 8-05 ity of 00:00: [place] 00 Medical Branch LYUMJEV 2020-0 Yes Univers U-100 7-20 ity of INSULIN 100 00:00: [place] unit/mL 00 Medical Soln Branch LYUMJEV 2020-0 Yes Univers U-100 7-20 ity of INSULIN 100 00:00: [place] unit/mL 00 [facility] LYUMJEV 2020-0 Yes Univers U-100 7-20 ity of INSULIN 100 00:00: [place] unit/mL 00 [facility] LYUMJEV 2020-0 Yes Univers U-100 7-20 ity of INSULIN 100 00:00: [place] unit/mL 00 [facility] LYUMJEV 2020-0 Yes Univers U-100 7-20 ity of INSULIN 100 00:00: [place] unit/mL 00 [facility] LYUMJEV 2020-0 Yes Univers U-100 7-20 ity of INSULIN 100 00:00: [place] unit/mL 00 [facility] fluticasone 2020-0 Yes [id number] 1 spray Univers propionate 2-07 each ity of 50 00:00: nostril [place] mcg/actuati 00 twice a Medic al on nasal day for 5 Branch spray days then daily fluticasone 0 Yes [id number] 1 spray Univers propionate 2-07 each ity of 50 00:00: nostril [place] mcg/actuati 00 twice a Medic al on nasal day for 5 Branch spray days then daily fluticasone 2020-0 Yes [id number] 1 spray Univers propionate 2-07 each ity of 50 00:00: nostril [place] mcg/actuati 00 twice a Medic al on nasal day for 5 Branch spray days then daily fluticasone 2020-0 Yes [id number] 1 spray Univers propionate 2-07 each ity of 50 00:00: nostril [place] mcg/actuati 00 twice a Medic al on nasal day for 5 Branch spray days then daily fluticasone 2020-0 Yes [id number] 1 spray Univers propionate 2-07 each ity of 50 00:00: nostril [place] mcg/actuati 00 twice a Medic al on nasal day for 5 Branch spray days then daily fluticasone 2020-0 Yes [id number] 1 spray Univers propionate 2-07 each ity of 50 00:00: nostril [place] mcg/actuati 00 twice a Medic al on nasal day for 5 Branch spray days then daily flash Yes [id number] 1{each} 1 Each Un leeann glucose 4-15 every 14 ity of sensor 00:00: (fourteen) [place] (FREESTYLE 00 days. Use Medi carlos JARET 14 as Branch DAY SENSOR) directed Kit with reader. flash Yes [id number] 1{each} 1 Each Un leeann glucose 4-15 every 14 ity of sensor 00:00: (fourteen) [place] (FREESTYLE 00 days. Use Medi carlos JARET 14 as Branch DAY SENSOR) directed Kit with reader. flash 2019- Yes [id number] 1{each} 1 Each Un leeann glucose 4-15 every 14 ity of sensor 00:00: (fourteen) [place] (FREESTYLE 00 days. Use Medi carlos JARET 14 as Branch DAY SENSOR) directed Kit with reader. flash Yes [id number] 1{each} 1 Each Un leeann glucose 4-15 every 14 ity of sensor 00:00: (fourteen) [place] (FREESTYLE 00 days. Use Medi carlos JARET 14 as Branch DAY SENSOR) directed Kit with reader. flash 2018- Yes [id number] 1{each} 1 Each Un leeann glucose 4-15 every 14 ity of sensor 00:00: (fourteen) [place] (FREESTYLE 00 days. Use Medi carlos JARET 14 as Branch DAY SENSOR) directed Kit with reader. flash Yes [id number] 1{each} 1 Each Un leeann glucose 4-15 every 14 ity of sensor 00:00: (fourteen) [place] (FREESTYLE 00 days. Use Medi carlos JARET [...] e gauge x gauge x gauge x /" Take " Take " Take 5 needles 5 needles 5 needles every day every day every day by miscell. by miscell. by route as route as miscell. directed. directed. route as directed. carvedilol carvedilol No carvedilol [facility] 3.125 mg 3.125 mg 3.125 mg Fam arthur tablet tablet tablet Practic e DEXCOM G6 DEXCOM G6 No DEXCOM [address] CGM CGM CGM Family Practic e Dexcom G6 Dexcom No [address] Sensor Sensor Sensor Family device Take device Take device Practic 3 devices 3 devices Take 3 e every month every month devices by miscell. by miscell. every route. route. month by miscell. route. Dexcom G6 Dexcom No Dex[address] Transmitter Transmitter Transmitte Family device device r device Practic e fluticasone fluticasone No fluticason [place] propionate propionate e Fam arthur 50 50 [...] solution us solution ketorolac ketorolac No ketorolac [facility] 10 mg 10 mg 10 mg [...] pump: TDD 70 metoprolol metoprolol No metoprolol [facility] succinate succinate succinate [facility] ER 50 mg ER 50 mg ER 50 mg Pra ctic tablet,exte tablet,exte tablet,ext e nded nded ended release 24 release 24 release 24 hr hr hr nitroglycer nitroglycer nitroglyce [facility] in 0.4 mg in 0.4 mg rin 0.4 mg [facility] sublingual sublingual sublingual Practic tablet tablet tablet e sertraline sertraline No sertraline [facility] 50 mg 50 mg 50 mg [...] Immunizations Ordered Filled Immunization Date Status Comments [facility] e Immunization Name Name Influenza Virus 2021-01-19 Completed Universit y of Vaccine Quad IM 3+ 00:00:00 [facility] Influenza Virus 2021-01-19 Completed Universit y of Vaccine Quad IM 3+ 00:00:00 [facility] Influenza Virus 2021-01-19 Completed Universit y of Vaccine Quad IM 3+ 00:00:00 [facility] Influenza Virus 2021-01-19 Completed Universit y of Vaccine Quad IM 3+ 00:00:00 [facility] Influenza Virus 2021-01-19 Completed Universit y of Vaccine Quad IM 3+ 00:00:00 [facility] Influenza Virus 2021-01-19 Completed Universit y of Vaccine Quad IM 3+ 00:00:00 [facility] SARS-COV-2 COVID-19 2020-06-02 Completed Unive rsity of PFIZER VACCINE 00:00:00 [facility] [place] [facility] SARS-COV-2 COVID-19 2020-06-02 Completed Unive rsity of PFIZER VACCINE 00:00:00 [facility] [place] [facility] SARS-COV-2 COVID-19 2020-06-02 Completed Unive rsity of PFIZER VACCINE 00:00:00 [facility] [place] [facility] SARS-COV-2 COVID-19 2020-06-02 Completed Unive rsity of PFIZER VACCINE 00:00:00 [facility] [place] [facility] SARS-COV-2 COVID-19 2020-06-02 Completed Unive rsity of PFIZER VACCINE 00:00:00 [facility] [place] [facility] SARS-COV-2 COVID-19 2020-06-02 Completed Unive rsity of PFIZER VACCINE 00:00:00 [facility] [place] [facility] COVID-19 COVID-19 2020-05-22 Completed [facility] (SARS-COV-2) (SARS-COV-2) 00:00:00 Practice vaccine, vaccine, unspecified unspecified SARS-COV-2 COVID-19 2020-05-12 Completed Unive rsity of PFIZER VACCINE 00:00:00 [facility] [place] [facility] SARS-COV-2 COVID-19 2020-05-12 Completed Unive rsity of PFIZER VACCINE 00:00:00 [facility] [place] [facility] SARS-COV-2 COVID-19 2020-05-12 Completed Unive rsity of PFIZER VACCINE 00:00:00 [facility] [place] [facility] SARS-COV-2 COVID-19 2020-05-12 Completed Unive rsity of PFIZER VACCINE 00:00:00 [facility] [place] [facility] SARS-COV-2 COVID-19 2020-05-12 Completed Unive rsity of PFIZER VACCINE 00:00:00 [facility] [place] [facility] SARS-COV-2 COVID-19 2020-05-12 Completed Unive rsity of PFIZER VACCINE 00:00:00 [facility] [place] [facility] influenza, influenza, 2020-01-20 Completed [facility] injectable, injectable, 00:00:00 Practice quadrivalent quadrivalent Influenza Virus 2018-01-29 Completed Universit y of Vaccine Quad IM 3+ 00:00:00 [facility] Influenza Virus 2018-01-29 Completed Universit y of Vaccine Quad IM 3+ 00:00:00 [facility] Influenza Virus 2018-01-29 Completed Universit y of Vaccine Quad IM 3+ 00:00:00 [facility] Influenza Virus 2018-01-29 Completed Universit y of Vaccine Quad IM 3+ 00:00:00 [facility] Influenza Virus 2018-01-29 Completed Universit y of Vaccine Quad IM 3+ 00:00:00 [facility] Influenza Virus 2018-01-29 Completed Universit y of Vaccine Quad IM 3+ 00:00:00 [facility] TDAP 2016-07-20 Completed University of 00:00:00 [facility] [place] [facility] TDAP 2016-07-20 Completed University of 00:00:00 [facility] [place] [facility] TDAP 2016-07-20 Completed University of 00:00:00 [facility] [place] [facility] TDAP 2016-07-20 Completed University of 00:00:00 [facility] [place] [facility] TDAP 2016-07-20 Completed University of 00:00:00 [facility] [place] [facility] TDAP 2016-07-20 Completed University of 00:00:00 [facility] [place] [facility] tetanus toxoid, tetanus toxoid, 2015-04-21 Completed [facility] adsorbed [facility] 00:00:00 Practice Vital Signs Vital Name Observation Time Observation Value Comments Source BP Diastolic 2021-08-14 00:00:00 60 mm[Hg] [facility] Practice Height 2021-08-14 00:00:00 63 [in_i] [facility] Practice BMI (Body Mass 2021-08-14 00:00:00 27.8 kg/m2 [facility] BP Systolic 2021-08-14 00:00:00 91 mm[Hg] [facility] Body Weight 2021-08-14 00:00:00 156.8 [lb_av] [facility] Practice Systolic blood 2021-07-13 21:13:00 100 mm[Hg] [facility] 2021-07-13 21:13:00 68 mm[Hg] [facility] Heart rate 2021-07-13 21:13:00 102 /min [facility] Body height 2021-07-13 21:13:00 160 cm [facility] Body weight 2021-07-13 21:13:00 73.936 kg [facility] BMI 2021-07-13 21:13:00 28.87 kg/m2 [facility] Oxygen saturation 2021-07-13 21:13:00 98 /min [facility] in Arterial blood Medical Br anch by Pulse oximetry BP Diastolic 2021-05-16 00:00:00 81 mm[Hg] [facility] Practice Height 2021-05-16 00:00:00 63 [in_i] [facility] Practice BMI (Body Mass 2021-05-16 00:00:00 32.2 kg/m2 [facility] Practice BP Systolic 2021-05-16 00:00:00 115 mm[Hg] [facility] Practice Body Weight 2021-05-16 00:00:00 182 [lb_av] [facility] Practice BP Diastolic 2020-10-11 00:00:00 77 mm[Hg] [facility] Practice Height 2020-10-11 00:00:00 63 [in_i] [facility] Practice BMI (Body Mass 2020-10-11 00:00:00 30.5 kg/m2 [facility] Practice BP Systolic 2020-10-11 00:00:00 113 mm[Hg] [facility] Practice Body Weight 2020-10-11 00:00:00 172.4 [lb_av] [facility] Practice BP Diastolic 2020-07-14 00:00:00 77 mm[Hg] [facility] Height 2020-07-14 00:00:00 63 [in_i] [facility] Practice BMI (Body Mass 2020-07-14 00:00:00 32.8 kg/m2 [facility] Practice BP Systolic 2020-07-14 00:00:00 108 mm[Hg] [facility] Body Weight 2020-07-14 00:00:00 185 [lb_av] [facility] Practice BP Diastolic 2020-04-11 00:00:00 68 mm[Hg] [facility] Practice Height 2020-04-11 00:00:00 63 [in_i] [facility] Practice BMI (Body Mass 2020-04-11 00:00:00 31.4 kg/m2 [facility] e Family Index) Practice BP Systolic 2020-04-11 00:00:00 118 mm[Hg] [facility] Practice Body Weight 2020-04-11 00:00:00 177 [lb_av] [facility] Practice BP Diastolic 2019-02-10 00:00:00 75 mm[Hg] [facility] Height 2019-02-10 00:00:00 63 [in_i] [facility] BMI (Body Mass 2019-02-10 00:00:00 25[facility]7 [facility] BP Systolic 2019-02-10 00:00:00 120 mm[Hg] [facility] Body Weight 2019-02-10 00:00:00 145.1 [lb_av] [facility] Procedures Procedure Date / Time Performing Clinician Source Performed EXTERNAL PROVIDER 2021-08-23 05:01:00 Doctor Unassigned, No [facility] RECORDS Name Medical Branch CONSENT/REFUSAL FOR 2021-07-16 14:50:21 Doctor Unassigned, No [facility] DIAGNOSIS AND TREATMENT Name Medical Branch ASSIGNMENT OF BENEFITS 2021-07-16 14:50:10 Doctor Unassigned, No [facility] [place] Name Medical Branch Hysterectomy (Total) 2019-06-20 00:00:00 [facility] Practice CT, sinuses, w/o 2019-02-10 00:00:00 [facility] Laparoscopic Sleeve 2015-09-20 00:00:00 [facility] Gastrectomy Practice Sinus Surgery [facility] Plan of Care Planned Activity Planned Date Details Comments Source Diagnostic Test 2021-08-14 hemoglobin A1C, [facility] F amily Pending 00:00:00 fingerstick [code = Practice hemoglobin A1C, fingerstick] Diagnostic Test 2021-08-14 glucose, [place] F[facility] Pending 00:00:00 fingerstick, blood Practice [code = glucose, fingerstick, blood] Future Appointment 2021-11-13 Fredrick Phillips [facility] 00:00:[id number]; [address], [place] [address] Instructions [facility] Encounters Start End Encounter Admission Attending Care Care Encounter Source Date/Time Date/Time Type Type Clinicians Facility Department ID 2021-09-04 2021-09-04 Outpatient [id number] 1030-20 [facility] 11:36:00 11:36:00 U [id number] Family Practic e 2021-08-23 2021-08-23 Orders Doctor DANIEL 1.2.840.114 [id number] Univers 00:00:00 00:00:00 Only Unassigned, MADHU 350.1.13.10 ity of [place] [facility] 4.2.7.2.686 Rod as [phone] [address] 2021-08-15 2021-08-15 Telephone Ramon [facility] 1.2.123.561 [id number] Univers 00:00:00 00:00:00 [facility] 350.1.13.10 it y of [place] 4.2.7.2.686 Rod as EDMAR?BLEA [phone] Mt luci CABA [address] [place] [address] MEDICAL OFFICE BUILDING 2021-08-14 2021-08-14 Outpatient Glo VFP VFP [id number] 0-20 [facility] 12:32:00 12:32:00 [id number] Family Practic e 2021-08-14 2021-08-14 Claudy [facility] - [id number] V illage 00:00:00 00:00:00 Theresa [facility] Family GreyJaime - Garth sharma MD: [id number] VM_HOU_Shaalonzo e Shadow ow [address], [address], [place] [address] , Ph. 2021-07-16 2021-07-16 Cabin Crew Xi, Alie Lab Main [facility] 1.2.8 40.114 [id number] Univers 11:00:00 11:15:00 Visit Haritha Kiser 350.1.13. 10 ity of [place]7.2.686 [place] PROF[place] [phone] Mt dical NICOLE 353 [facility] 2021-07-16 2021-07-16 Outpatient R [facility] [id number] -[id number] Univers 11:00:00 11:00:00 [id number] ity of [facility] 2021-07-16 2021-07-16 [facility] [id number] Univers 11:00:00 11:00:00 WONDIFUL ity o f [facility] 2021-07-16 2021-07-16 Orders Doctor DANIEL 1.2.840.114 [id number] Univers 00:00:00 00:00:00 Only Unassigned, MADHU 350.1.13.10 ity of [place] [facility] 4.2.7.2.686 Rod as [phone] [address] 2021-07-13 2021-07-13 [facility] 1.2.840.114 [id number] Univers 16:00:00 17:03:21 Visit Wonking Cesar [facility] 350.1.13.10 it[facility] 4.2.7.2.686 Rod as EDMAR?BLEA [phone] Mt dical KAYLAEY [address] MEDICAL OFFICE BUILDING 2021-07-02 2021-07-02 Outpatient Que_T VFP VFP [id number] 0-20 [place] 02:19:00 02:19:00 [id number] Family Reginald bowser 2021-05-31 2021-05-31 Outpatient Que_T VFP VFP [id number] 0-20 [facility] 03:30:00 03:30:00 [id number] Family Practic e 2021-05-17 2021-05-17 Outpatient Daniel_T VFP VFP [id number] 020 [facility] 11:37:00 11:37:00 [id number] Family Practic e 2021-05-17 2021-05-17 Outpatient Bui_Q_WAGDN VFP VFP 114 020 [facility] 11:37:00 11:37:00 U [id number] Family Practic e 2021-05-16 2021-05-16 Outpatient Daniel_T VFP VFP [id number] [address] 05:07:00 05:07:00 [id number] Family Practic e 2021-05-16 2021-05-16 Claudy VFP [place] - [id number] V illage 00:00:00 00:00:00 [facility] Family Grey Medical - Prackalyan sharma MD: [id number] VM_HOU_Shaalonzo e Shadow [facility], [address], [place] [address] , Ph. 2021-03-02 2021-03-02 Outpatient Daniel_T VFP VFP [id number] [address] [place] [address] 09:46:00 09:46:00 [id number] Family Practic e 2020-10-13 2020-10-13 Outpatient Daniel_T VFP VFP [id number] [address] 12:26:00 12:26:00 [id number] Family Practic e 2020-10-13 2020-10-13 Outpatient Daniel_T VFP VFP [id number] [address] 12:26:00 12:26:00 [id number] Family Practic e 2020-10-13 2020-10-13 Outpatient Bui_Q_WAGDN VFP VFP [id number] [facility] 12:26:00 12:26:00 U [id number] Family Practic e 2020-10-11 2020-10-11 Outpatient Daniel_T VFP VFP [id number] 020 [facility] 09:55:00 09:55:00 [id number] Family Practic e 2020-10-11 2020-10-11 Claudy VFP [place] - [id number] V illage 00:00:00 00:00:00 [facility] Family Grey, Medical - Prackalyan sharma MD: [id number] VM_NICOLAS_Shaalonzo e Shadow ow [address], [address], [place] [address] , Ph. 2020-10-10 2020-10-10 Outpatient Daniel_T VFP VFP [id number] 0-20 [facility] 02:11:00 02:11:00 [id number] Family Practic e 2020-07-25 2020-07-25 Orders Doctor DANIEL 1.2.840.114 [id number] 00:00:00 00:00:00 Only Unassigned, MADHU 350.1.13.10 [place] [facility] 4.2.7.2.686 [id number] 009 2020-07-24 2020-07-24 Cabin Crew Alie Layne [facility] 1.2.840.114 [id number] 14:03:59 14:18:59 Visit Lab Main [place] 350.1.13.10 [place] 4.2.7.2.686 Nirmala [phone] [address] 2020-07-19 2020-07-19 Outpatient Daniel_T VFP VFP [id number] 0-20 [facility] 06:36:00 06:36:00 [id number] Family Practic e 2020-07-19 2020-07-19 Outpatient Bui_Q_WAG VFP VFP [id number] 30-20 [facility] 06:36:00 06:36:00 [id number] Family Practic e 2020-07-14 2020-07-14 Outpatient Daniel_T VFP VFP [id number] 0-20 [facility] 11:54:00 11:54:00 [id number] Family Practic e 2020-07-14 2020-07-14 Outpatient Daniel_T VFP VFP [id number] 0-20 [facility] 11:54:00 11:54:00 [id number] Family Practic e 2020-07-14 2020-07-14 Claudy VFP [place] - [id number] V illage 00:00:00 00:00:00 [facility] Family GreyJaime - Garth sharma MD: 48460 VM_NICOLAS_Shaalonzo e Shadow ow [address], [address], [place] [address] , Ph. 2020-05-28 2020-05-28 Urgent Provider, [facility] 1.2.622.660 [id number] 17:04:02 17:24:02 Care [facility] 350.1.13.10 Care [place] 4.2.7.2.686 Professio [phone] nal 044 Office Building One 2020-05-15 2020-05-15 Cabin Crew Xi, [facility] 1.2.840.114 [id number] 15:04:50 15:19:50 Visit Lab Main Vik 350.1.13.10 [place] 4.2.7.2.686 Professio [phone] nal 353 Building 2020-05-15 2020-05-15 Orders Doctor DANIEL 1.2.840.114 [id number] 00:00:00 00:00:00 Only Unassigned, MADHU 350.1.13.10 [place] [facility] 4.2.7.2.686 [id number] 009 2020-05-05 2020-05-05 Laboratory Only, [facility] 1.2.840.114 [id number] 14:37:30 14:52:30 Only Test [place] 350.1.13.[address] [place] [address] [id number] 353 2020-04-15 2020-04-15 Outpatient Daniel_T VFP VFP [id number] 0-20 [facility] 01:55:00 01:55:00 [id number] Family Practic e 2020-04-15 2020-04-15 Outpatient Bui_Q_WAG VFP VFP [id number] [facility] 01:55:00 01:55:00 [id number] Family Practic e 2020-04-11 2020-04-11 Outpatient Daniel_T VFP VFP [id number] 0-20 [facility] 11:57:00 11:57:00 [id number] Family Practic e 2020-04-11 2020-04-11 Claudy VFP [place] - [id number] V illage 00:00:00 00:00:00 [facility] Family GreyJaime - Garth sharma MD: [id number] VM_NICOLAS_Feliz bowser [facility], [address] [address] , Ph. 2020-04-10 2020-04-10 Outpatient Felizel_T VFP VFP [id number] 0-20 [place] 05:10:00 05:10:00 [id number] Family Practic e 2020-04-04 2020-04-04 Outpatient Bui_Q_WAG VFP VFP [id number] 30-20 [place] 11:25:00 11:25:00 [id number] Family Practic e 2020-03-07 2020-03-06 Inpatient FREDERICK Scott, [facility] [id number] [facility] 11:00:00 11:00:00 Mikki 22 [facility] [place] 2020-02-01 2020-02-01 Cabin Crew Alie Layne [facility] 1.2.840.114 [id number] 08:33:57 08:48:57 Visit Lab Main Vik 350.1.13.10 [place] 4.2.7.2.[phone] 2020-02-01 2020-02-01 Orders Doctor DANIEL 1.2.840.114 [id number] 00:00:00 00:00:00 Only Unassigned, MADHU 350.1.13.10 [place] [facility] 4.2.7.2.686 [id number] [id number] 2020-01-13 2020-01-13 Nurse Rashel [facility] 1.2.840.114 [id number] 14:54:12 15:28:24 Visit [facility] 350.1.13.10 [place] 4.2.7.2.686 Profbhavinio [phone] [place] [address] Office [address] One 2020-01-03 2020-01-03 Office Rashel [facility] 1.2.840.114 [id number] 13:16:48 14:12:27 Visit [facility] 350.1.13.10 [place] 4.2.7.2.686 Professio [phone] [place] [address] Office [address] One 2019-12-29 2019-12-29 Outpatient FREDERICK Palm, [facility] JACK [id number] [facility] 12:00:00 12:00:00 Jeanine 67 [facility] 2019-11-04 2019-11-04 Outpatient N[facility]stor, [facility] [id number] [facility] 07:00:00 07:00:00 Jeanine 70 [facility] [place] 2019-10-28 2019-10-28 Outpatient EL Néstor, [facility] JACK [id number] [facility] 12:00:00 12:00:00 Jeanine 90 [facility] [place] 2019-02-10 2019-02-[address] [facility] [place] - [id number] [place] 00:00:00 00:00:00 MD Nathan: [address] Group [place], [place] - [address], Otolaryngol [place], [place] [address] , Ph. Results Test Description Test Time Test Comments Results Result Comments Source Hemoglobin A1c measurement device panel 2021-08-14 10:43:27 Test Item Value Reference Range Interpretation Comme nts Hemoglobin A1C Fingerstick: (test code = Hemoglobin A1C Fingerstick :) 7.0 [facility] in Capillary [id number] 10:39:53 Test Item Value Reference Range Interpretation Comments Blood Glucose: mg/dl (test code = Blood 256 Glucose: mg/dl) [facility] [id number] 15:03:04 Test Item Value Reference Range Interpretation Comments Hemoglobin A1C Fingerstick: (test code 8.1 = Hemoglobin A1C Fingerstick:) [facility] [Mass/volume] in Capillary [id number] 15:02:56 Test Item Value Reference Range Interpretation Comments Blood Glucose: mg/dl (test code = Blood 136 Glucose: mg/dl) [facility] PracticeENDOMETRIUM,[id number] 16:42:00 Test Item Value Reference Range Interpretation Comments ENDOMETRIUM,BIOPSY (test code = ENDOMETBX) RUN DATE: 03/09/20 [facility] PAGE 1 RUN TIME: 1751 Specimen Inquiry RUN USER: INTERFACE PATIENT: SIDNEY ROBERTSON LOC: [facility] #: [id number] AGE/SX: ROOM: [facility] RE03/07/20REG DR: Mikki Scott MD : 86 BED: A DIS: 03/08/20 STATUS: DIS Jack TLOC: SPEC #: [id number] RECD: 03/08/20 STATUS: CHELSEA RSOS #: [id number] EARLE: 03/08/20- SUBM DR: Mikki Scott MD ENTERED: 03/08/20 SP TYPE: ENDOMETBX OT DR: ORDERED: LEVEL IV CODES: [id number] - ENDOMETRIUM, NO PROCEDURES: LEVEL IV (Incomplete) [...] - no significant pathologic alteration CPT code(s): 40554 x6, 40583 [facility] CONTINUED ON NEXT PAGE RUN DATE: 03/09/20 [facility] PAGE 2 RUN TIME: 1750 Specimen Inquiry RUN USER: INTERFACE SPEC #: [id number] PATIENT: SIDNEY ROBERTSON #[id number] (Continued) GROSS DESCRIPTION ANATOMIC SOURCE OF TISSUE [...] with fimbriae. Sectioning reveals a pinpoint lumen. Performance Improvement Specialist sections are submitted as follows: CONTINUED ON NEXT PAGE RUN DATE: 03/09/20 [facility] PAGE 3 RUN TIME: 175 Specimen Inquiry RUN USER: INTERFACE SPEC #: [id number] PATIENT: SIDNEY ROBERTSON #[id number] (Continued) GROSS DESCRIPTION (Continued) G1 - serosal adhesions and fatty tissue G2 - anterior cervix G3 - posterior cervix G4 - anterior endometrium G5 - posterior endometrium G6 - right fallopian tube G7 - left fallopian tube michelle 03/08/20 Signed Mariam Aparicio MD 03/09/20 1642 END OF REPORT CBC W/AUTO [id number] 06:58:00 Test Item Value Reference Range Interpretation [...] REQUIRED (test NORMAL NORMAL code = PLTMR) [id number] 06:50:00 Test Item Value Reference Range Interpretation Comments GLUBED (test code = GLUBED) 130 mg/dL 65-110 H [id number] 23:39:00 Test Item Value Reference Range Interpretation Comments GLUBED (test code = GLUBED) 266 mg/dL 65-110 H [id number] 17:06:00 Test Item Value Reference Range Interpretation Comments GLUBED (test code = GLUBED) 219 mg/dL 65-110 H [id number] 14:17:00 Test Item Value Reference Range Interpretation Comments GLUBED (test code = GLUBED) 135 mg/dL 65-110 H [id number] 09:59:00 Test Item Value Reference Range Interpretation Comments GLUBED (test code = GLUBED) 110 mg/dL 65-110 N AG HEPATITIS B [id number] 14:47:00 Test Item Value Reference Range Interpretation Comments AG HEPATITIS B SURFACE (test code NONREACTIVE NONREACTIVE = HBSAG) IS CONSENT FORM SIGNED FOR HIV TESTING? YAB HEPATITIS C [id number] 14:47:00 Test Item Value Reference Range Interpretation Comments AB HEPATITIS C (test code = NONREACTIVE NONREACTIVE HCVAB) SIGNAL TO CUTOFF (test code = 0.09 <0.80 N CUTOFF) IS CONSENT FORM SIGNED FOR HIV TESTING? YAB HIV 1 14:47:00 Test Item Value Reference Range Interpretation Comments AB HIV 1 2 (test NONREACTIVE NONREACTIVE Done by Juli [facility] code = [id number]) 4th Gen HIV Ag/Ab Combo Screen IS CONSENT FORM SIGNED FOR HIV TESTING? YAG HEPATITIS B [id number] 14:15:00 Test Item Value Reference Range Interpretation Comments AG HEPATITIS B SURFACE (test code NONREACTIVE NONREACTIVE = HBSAG) IS CONSENT FORM SIGNED FOR HIV TESTING? YAB HEPATITIS C [id number] 14:15:00 Test Item Value Reference Range Interpretation Comments AB HEPATITIS C (test code = HCVAB) NONREACTIVE SIGNAL TO CUTOFF (test code = CUTOFF) <0.80 IS CONSENT FORM SIGNED FOR HIV TESTING? YAB HIV 1 14:15:00 Test Item Value Reference Range Interpretation Comments AB HIV 1 2 (test code = SRQ36AY) NONREACTIVE IS CONSENT FORM SIGNED FOR HIV TESTING? YURINALYSIS [id number] 14:14:00 Test Item Value Reference Range Interpretation [...] URINE SAMPLE: CLEAN CATCHCOVID 19 Asymptomatic IH [id number] 13:50:00 Test Item Value Reference Range Interpretation [...] or approved; th e test hasbeen authori zed by FDA under an Emerge ncy Use Authorization(E UA) for use by blake souza certified under the CLIA thatmeet the re quirements to perform mode rate, high or waivedcomple xity tests. This silas t is authorized for use at thePoint of Car e (POC), i.e., in patien t care settingsoperati ng under a CLIA Certificat e of Waiver, Certifi kassie ofCompliance, o r Certificate of Accreditation. This test is only authori zealonzo for the duration of thedeclaration that circumstances e xist justifying theauthorizatio n of emergency use o f in vitro diagnostic test sfor detection and/o r diagnosis of CO VID-19 under Owrchms97 4(b)(1) of the Act, 21 U.S .C. 360bbb-3(b)(1), unless theauthorizatio n is terminated or r evoked sooner. HCG SERUM [id number] 13:43:00 Test Item Value Reference Range Interpretation Comments HCG SERUM QUAL (test code = HCGQL) NEGATIVE CBC W/AUTO [id number] 13:22:00 Test Item Value Reference Range Interpretation [...] NORMAL NORMAL code = PLTMR) - DUP AB/PEL/SC/[id number] 07:44:00 Patient Name: SIDNEY ROBERTSON Unit No: [id number] EXAMS: CPT CODE: [id number] DUP AB/PEL/SC/LTD 36700 CLINICAL HISTORY: Pelvic pain. COMPARISON: August 21, [...] Orig Print D/T: S: 11/04/2019 (0747) [facility] NAME: SIDNEY ROBERTSON Radiology Department PHYS: Jeanine Wills [address] : 1990 AGE: 29 SEX: F [place], [place] [address] LOC: MargarethRADPHONE #: [phone] EXAM DATE: 11/04/2019 STATUS: REG CLI FAX #: [phone] RAD NO: Page 1 Signed Report Patient Name: SIDNEY ROBERTSON Unit No: [id number] EXAMS: CPT CODE: [id number] DUP AB/PEL/SC/LTD 08691 <Continued> [facility] NAME: SIDNEY ROBERTSON Radiology Department PHYS: Jeanine Wills [address] : 1990 AGE: 29 SEX: F [place], [place] [address] LOC: MargarethRAD PHONE #: [phone] EXAM DATE: 11/04/2019 STATUS: REG CLI FAX #: [phone] RAD NO: Page 2 Signed Report- US PELVIS [id number] 07:44:00 Patient Name: SIDNEY ROBERTSON Unit No: [id number] EXAMS: CPT CODE: [id number] US PELVIS COMPLETE 16877 CLINICAL HISTORY: Pelvic pain. COMPARISON: August 21, [...] Orig Print D/T: S: 11/04/2019 (0747) [facility] NAME: SIDNEY ROBERTSON Radiology Department PHYS: [facility] Renteriabaljeet Cesar [address] : 1990 AGE: 29 SEX: F [place] [address] LOC: MargarethRADPHONE #: [phone] EXAM DATE: 11/04/2019 STATUS: REG CLI FAX #: [phone] RAD NO: Page 1 Signed Report Patient Name: SIDNEY ROBERTSON Unit No: [id number] EXAMS: CPT CODE: [id number] US PELVIS COMPLETE 56272 <Continued> [facility] NAME: SIDNEY ROBERTSON Radiology Department PHYS: [facility] Leonora Palmerine Arsenio [address] : 1990 AGE: 29 SEX: F [place] [address] LOC: MargarethRAD PHONE #: [phone] EXAM DATE: 11/04/2019 STATUS: REG CLI FAX #: [phone] RAD NO: Page 2 Signed Report- US TRANSVAGINAL [id number] 07:44:00 Patient Name: SIDNEY ROBERTSON Unit No: [id number] EXAMS: CPT CODE: [id number] US TRANSVAGINAL W/PELVIS 49514 CLINICAL HISTORY: Pelvic pain. COMPARISON: August 21, [...] CC: Jeanine Palm MD Technologist: Janelle Sam, [facility] Probe: [id number] TrnscrbdD/ (0744) t.VAL Orig Print D/T: S: 11/04/2019 (0747) [facility] NAME: MAIE ROBERTSONJUAN F Cesar Radiology Department PHYS: CIARA Jeanine Palm [address] : 1990 AGE: 29 SEX: F [place] [address] LOC: MargarethRADPHONE #: [phone] EXAM DATE: 11/04/2019 STATUS: REG CLI FAX #: [phone] RAD NO: Page 1 Signed Report Patient Name: SIDNEY ROBERTSON Unit No: [id number] EXAMS: CPT CODE: [id number] US TRANSVAGINAL W/PELVIS 23211 <Continued> [facility] NAME: SIDNEY ROBERTSON Radiology Department PHYS: TEOFILOJeanine Anton [address] : 1990 AGE: 29 SEX: F [place], [place] [address] LOC: F.RAD PHONE #: [phone] EXAM DATE: 11/04/2019 STATUS: REG CLI FAX #: [phone] RAD NO: Page 2 Signed Report
[2021-09-21 03:53] LABS: Absolute Lymphocytes (CBC) 1.3 K/uL (0.7-4.9); Hematocrit 43.6 % (36.0-45.0); Lymphocytes % 5.5 % (15.3-44.8); MPV 11.8 fL (7.6-11.3); RBC Red Blood Cell Count 4.14 M/uL (3.86-4.86)
[2021-09-21 04:06] LABS: Urine Blood 2+ (Negative); Urine Glucose 2+ (Negative); Urine Protein 1+ (Negative); Urine Specific Gravity 1.015 (1.005-1.030)
[2021-09-21] MEDS ORDERED: INSULIN -REGULAR HUMAN 50 UNIT/0.5 ML ML ONE (04:12)
[2021-09-21] MEDS ORDERED: NA CHLORIDE 0.9% 100 ML ONE (04:12)
[2021-09-21] MEDS ORDERED: NA CHLORIDE 0.9% 1,000 ML ONE ×2 (04:17→05:18)
[2021-09-21 04:18] LABS: ALT/SGPT 28 U/L (12-78); AST/SGOT 22 U/L (15-37); Alkaline Phosphatase 122 U/L (45-117); BUN Blood Urea Nitrogen 31 mg/dL (7-18); Bilirubin Direct 0.1 mg/dL (0-0.2); Bilirubin Total 0.5 mg/dL (0.2-1.0); Glomerular Filtration Rate 37 ml/min (=/>90); Potassium 5.4 mmol/L (3.5-5.1); Sodium Level 132 mmol/L (136-145)
[2021-09-21 04:18] LABS: Urine Appearance Clear (Clear); Urine Bilirubin Negative (Negative); Urine Blood 2+ (Negative); Urine Color Yellow (Yellow); Urine Glucose 2+ (Negative); Urine Protein 1+ (Negative); Urine Urobilinogen 0.2 mg/dL (0.2-1.0)
[2021-09-21 04:19] LABS: Albumin 3.8 g/dL (3.4-5.0); Amylase 24 U/L (25-115); Lipase 12 U/L (73-393); Phosphorus 7.9 mg/dL (2.5-4.9); Protein, Total 7.2 g/dL (6.4-8.2)
[2021-09-21 04:20] LABS: Bicarbonate < 8 mmol/L (21-32); Glucose Level 881 mg/dL (74-106)
--- NOTE | 2021-09-21 04:31 | EDPHYS ---
Physician Documentation [facility] Name: Lilibeth Sharif Age: 31 yrs Sex: Female : 1990 Arrival Date: 09/21/2021 Time: 03:36 Bed 3 Private MD: ED Physician David Torres HPI: 09/21 03:39 This 31 yrs old Female presents to ER via Unassigned with complaints of High ms3 Blood Sugar. 03:39 The patient or guardian reports altered mental status, hyperglycemia, that was ms3 potentially precipitated by Insulin pump coming off on Friday, with the patient's symptoms witnessed by family. Onset: The symptoms/episode began/occurred 6 hour(s) ago. Associated signs and symptoms:. Unable to obtain HPI due to altered mental status. 31-year-old female past medical history of type 1 diabetes presents via [facility] for DKA. Patient's family stated EMS that her insulin pump fell off on Friday. At 9:30 PM patient began acting strange. On EMS arrival patient arousable to verbal stimuli. Patient with altered mental status limiting HPI.. 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 - Social history:: Smoking status: unknown. ROS: 03:39 Unable to obtain ROS due to altered mental status. ms3 Exam: 03:39 Head/Face: Normocephalic, atraumatic. Eyes: Pupils equal round and reactive to light, ms3 extra-ocular motions intact. Lids and lashes normal. Conjunctiva and sclera are non-icteric and not injected. Periorbital areas with no swelling, redness, or edema. Neck: Trachea midline, no cervical lymphadenopathy. Supple, full range of motion without nuchal rigidity, or vertebral point tenderness. No Meningismus. Chest/axilla: Normal chest wall appearance and motion. Nontender with no deformity. 03:39 Abdomen/GI: Soft, non-tender, with normal bowel sounds. No distension or tympany. No guarding or rebound. No evidence of tenderness throughout. Skin: Warm, dry with normal turgor. Normal color with no rashes, no lesions, and no evidence of cellulitis. 03:39 Constitutional: The patient appears obviously ill, smells of ketones. 03:39 Cardiovascular: Rate: tachycardic, Rhythm: regular, Pulses: no pulse deficits are appreciated, Heart sounds: normal, normal S1and S2. 03:39 Respiratory: the patient does not display signs of respiratory distress, Respirations: labored breathing, that is moderate, Breath sounds: are clear throughout, Respiratory rate: 45 04:01 ECG was reviewed by the Attending Physician. ms3 Vital Signs: 03:38 BP 104 / 52; Pulse 124; Resp 45; Temp 98; Pulse Ox 99% on R/A; Weight 70.31 kg; Height tw5 5 ft. 7 in. (170.18 cm); 04:13 BP 107 / 67; Pulse 120; Resp 42 S; Pulse Ox 99% on R/A; as6 04:34 BP 111 / 61; Pulse 123; Resp 40 S; Pulse Ox 100% on R/A; as6 05:27 BP 107 / 65; Pulse 125; Resp 34 S; Pulse Ox 100% on R/A; as6 05:54 BP 102 / 67; Pulse 123; Resp 30 S; Pulse Ox 97% on R/A; as6 03:38 Body Mass Index 24.28 (70.31 kg, 170.18 cm) tw5 [place] Coma Score: 03:39 Eye Response: to voice(3). Verbal Response: confused(4). Motor Response: localizes ms3 pain(5). Total: 12. MDM: 03:38 Patient medically screened. ms3 03:45 Differential diagnosis: DKA, hyperglycemia. ms3 04:47 Data reviewed: vital signs, nurses notes, lab test result(s), EKG, radiologic studies. 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 Test interpretation: by ED physician or midlevel provider: ECG. ED course: Discussed critical status of patient with patient's and her father. Discussed ICU admission with them. Discussed case with MINOR Conway, and she accepts patient to ICU on behalf of Dr Reynolds. All questions answered.. 05:05 ED course: No bacterial source of infection found at this time.. ms3 05:22 ED course: Lactic acid 4.1. Likely due to DKA. No bacterial source of infection found. ms3 Bacteria in UA likely 2/2 contamination as squamous cells present without WBCs or RBCs, and nitrite negative.. 03 03:39 Order name: Acetone, Serum; Complete Time: 04:27 ms3 09/21 03:39 Order name: Amylase, Serum; Complete Time: 04:27 ms3 09/21 03:39 Order name: Basic Metabolic Panel; Complete Time: 04:27 ms3 09/21 03:39 Order name: CBC with Diff; Complete Time: 04:27 ms3 09/21 03:39 Order name: Hepatic Function; Complete Time: 04:27 ms3 09/21 03:39 Order name: Lipase; Complete Time: 04:27 ms3 09/21 03:39 Order name: Phosphorus; Complete Time: 04:27 ms3 09/21 04:02 Order name: COVID-19 SARS RT PCR (Document "Date of Onset" if Symptomatic); Complete ms3 Time: 05:20 03 04:05 Order name: Urine --Ancillary (enter results); Complete Time: 04:47 mw2 09/21 04:06 Order name: Urine Dipstick-Ancillary; Complete Time: 04:27 EDMS 09/21 04:18 Order name: Urinalysis; Complete Time: 05:01 EDMS 09/21 04:27 Order name: Blood Culture Adult (2) ms3 09/21 04:27 Order name: CMP ms3 09/21 03:39 Order name: EKG; Complete Time: 03:39 ms3 09/21 03:39 Order name: Cardiac monitoring; Complete Time: 03:45 ms3 09/21 03:39 Order name: EKG - Nurse/Tech; Complete Time: 04:13 ms3 09/21 03:39 Order name: IV Saline Lock; Complete Time: 03:45 ms3 09/21 03:39 Order name: NPO; Complete Time: 03:45 ms3 09/21 03:39 Order name: O2 Per Protocol; Complete Time: 03:45 ms3 03 03:51 Order name: CXR XRAY ms3 09/21 04:27 Order name: Lactate; Complete Time: 05:58 ms3 03 04:27 Order name: Protime (+inr); Complete Time: 05:01 ms3 03 04:27 Order name: Ptt, Activated; Complete Time: 05:01 ms3 03 04:37 Order name: Urine Microscopic Only; Complete Time: 05:01 EDMS 03 05:02 Order name: Urine Culture EDMS 09/21 05:15 Order name: Glucose, Ancillary Testing; Complete Time: 05:20 EDMS 03 03:39 Order name: O2 Sat Monitoring; Complete Time: 03:45 ms3 03 03:39 Order name: Urine Test (obtain specimen); Complete Time: 04:10 ms3 03 03:39 Order name: Urine Dipstick-Ancillary (obtain specimen); Complete Time: 04:10 ms3 03 03:49 Order name: Restraint:Non-Violent; Complete Time: 03:59 tw5 09/21 04:27 Order name: Accucheck; Complete Time: 04:27 ms3 03 04:27 Order name: IV Saline Lock - Large Bore; Complete Time: 04:28 ms3 03 04:27 Order name: Labs collected and sent; Complete Time: 04:31 ms3 EC:01 Rate is 122 beats/min. Rhythm is regular. QRS [place] is Normal. NC interval is normal. ms3 QRS interval is normal. Clinical impression: Sinus tachycardia. Interpreted by me. Administered Medications: 04:09 Drug: Insulin Drip - (Insulin Regular Human 100 units, NS 0.9% 100 ml) {Co-Signature: as6 kd3 (Agatha Diaz RN).} Route: IV; Rate: calculated rate; Site: right antecubital; 06:07 Follow up: IV Status: Infusion continued upon admission as6 04:12 Drug: NS 0.9% 1000 ml Route: IV; Rate: 1 bolus; Site: left antecubital; as6 05:20 Follow up: Response: No adverse reaction; IV Status: Completed infusion; IV Intake: as6 1000ml 05:19 Drug: NS 0.9% 1000 ml Route: IV; Rate: 150 ml/hr; Site: left antecubital; as6 06:06 Follow up: IV Status: Infusion continued upon admission as6 Point of Care Testing: Blood Glucose: 05:03 Blood Glucose: High (>450 mg/dL); as6 Ranges: Critical Glucose Levels:Adult <50 mg/dl or >400 mg/dl <40 mg/dl or >180 mg/dl Disposition Summary: 09/21/21 04:30 Hospitalization Ordered Hospitalization Status: Inpatient Admission ms3 Provider: Faviola Reynolds ms3 Condition: Stable ms3 Problem: new ms3 Symptoms: are unchanged ms3 Bed/Room Type: Standard ms3 Location: Intensive Care Unit(09/21/21 05:06) mw Room Assignment: 7-(09/21/21 05:33) mw Diagnosis - DKA ms3 - Leukocytosis ms3 Forms: - Medication Reconciliation Form ms3 - SBAR form ms3 Critical care time excluding procedures: 04:30 Critical care time: Bedside Care: 50 minutes, Consultation: 10 minutes, Family ms3 Intervention: 10 minutes. Total time: 70 minutes Signatures: Dispatcher [employer] EDRhonda Stinson, RN RN mw David Torres DO DO ms3 Merced Villafana tw5 Severino Figueroa RN RN as6 Irene Marquez PA PA sb3 Agatha Diaz RN kd3 Corrections: (The following items were deleted from the chart) 04:37 03:40 URINALYSIS+U.LAB.BRZ ordered. EDMS EDMS 04:59 04:30 Intensive Care Unit ms3 mw 04:59 04:30 ms3 mw 05:06 04:59 [facility] ER HOLD mw mw 05:06 04:59 ERHOLD- mw mw 05:33 05:06 mw mw
--- NOTE | 2021-09-21 04:31 | ER ---
Nurse's Notes [facility] Name: Lilibeth Sharif Age: 31 yrs Sex: Female : 1990 Arrival Date: 09/21/2021 Time: 03:36 Bed 3 Private MD: Diagnosis: DKA;Leukocytosis Presentation: 09/21 03:38 Chief complaint: EMS states: "We got to the house around 3. Patient family states that tw5 she woke up tonight with stomach cramps at 9. Her insulin pump has been on her since Friday. When we got there she already altered. ". Coronavirus screen: unable to obtain at this time. Ebola Screen: Unable to complete the Ebola screening because:. Initial Sepsis Screen: Does the patient meet any 2 criteria? Altered Mental Status. HR > 90 bpm. Does the patient have a suspected source of infection? No. Patient's initial sepsis screen is negative. Risk Assessment: Do you want to hurt yourself or someone else? Unable to obtain. Onset of symptoms is unknown. 03:38 Method Of Arrival: EMS: [facility] tw5 03:38 Acuity: JAMISON 2 tw5 Triage Assessment: 03:44 General: Appears ill, Behavior is agitated. Pain: Unable to use pain scale. Does not tw5 appear to understand pain scale. Patient appears confused. Neuro: Lozada Agitation-Sedation Scale (RASS): +3 Very Agitated Level of Consciousness is confused. HEALTH AND SAFETY CONSULTANT: 04:56 LMP N/A - UPT neg as6 Historical: - Allergies: 03:44 Diflucan; tw 03:44 HYDROCODONE; tw 03:44 Morphine; tw 03:44 sulfamethoxazole-trimethoprim; tw 03:44 tramadol; tw5 - PMHx: 03:44 Diabetes - IDDM; SVT; tw - PSHx: 03:44 2 cardiac ablations; hysterectomy; tw - Immunization history:: Adult Immunizations unknown. - Social history:: Smoking status: unknown. Screenin:31 Abuse screen: Denies threats or abuse. Denies injuries from another. Nutritional as6 screening: No deficits noted. Tuberculosis screening: No symptoms or risk factors identified. Fall Risk None identified. Assessment: 03:40 General: Appears distressed, ill, Behavior is restless. Neuro: Lozada as6 Agitation-Sedation Scale (RASS): +2 Agitated Level of Consciousness is lethargic. Cardiovascular: Rhythm is sinus tachycardia. Respiratory: Respiratory pattern is tachypnea. 03:57 General: pt restless, agitated, soft restraints applied to bilateral wrists . as6 05:31 General: Smells of ketones. as6 05:31 Neuro: Lozada Agitation-Sedation Scale (RASS): +1 Restless. as6 Vital Signs: 03:38 BP 104 / 52; Pulse 124; Resp 45; Temp 98; Pulse Ox 99% on R/A; Weight 70.31 kg; Height tw5 5 ft. 7 in. (170.18 cm); 04:13 BP 107 / 67; Pulse 120; Resp 42 S; Pulse Ox 99% on R/A; as6 04:34 BP 111 / 61; Pulse 123; Resp 40 S; Pulse Ox 100% on R/A; as6 05:27 BP 107 / 65; Pulse 125; Resp 34 S; Pulse Ox 100% on R/A; as6 05:54 BP 102 / 67; Pulse 123; Resp 30 S; Pulse Ox 97% on R/A; as6 03:38 Body Mass Index 24.28 (70.31 kg, 170.18 cm) tw5 [place] Coma Score: 03:39 Eye Response: to voice(3). Verbal Response: confused(4). Motor Response: localizes ms3 pain(5). Total: 12. ED Course: 03:36 Patient arrived in ED. tw5 03:38 David Torres DO is Attending Physician. ms3 03:42 Triage completed. tw5 03:44 Arm band placed on. tw5 03:45 Severino Figueroa, RHONDA is Primary Nurse. as6 03:45 Inserted saline lock: 20 gauge in right antecubital area, using aseptic technique. as6 Blood collected. 04:12 Inserted saline lock: 20 gauge in left antecubital area, using aseptic technique. as6 04:26 CXR XRAY In Process Unspecified. EDMS 04:27 Patient has correct armband on for positive identification. Placed in gown. Bed in low tw5 position. Call light in reach. Side rails up X2. Seizure precautions initiated. Client placed on continuous cardiac and pulse oximetry monitoring. NIBP monitoring applied. Door closed. 04:27 EKG done, by ED staff, reviewed by David Torres DO. Gillis cath inserted, using sterile tw5 technique, 16 Fr., by nm, balloon inflated, urine specimen collected. returned clear yellow urine. 04:28 Inserted saline lock: 18 gauge in left EJ, using aseptic technique. Blood collected. as6 04:29 Faviola Reynolds MD is Hospitalizing Provider. ms3 05:21 Notified ED physician of a critical lab result(s). lac 4.1. tw5 06:05 No provider procedures requiring assistance completed. Patient admitted, IV remains in as6 place. Administered Medications: 04:09 Drug: Insulin Drip - (Insulin Regular Human 100 units, NS 0.9% 100 ml) {Co-Signature: as6 kd3 (Agatha Diaz RN).} Route: IV; Rate: calculated rate; Site: right antecubital; 06:07 Follow up: IV Status: Infusion continued upon admission as6 04:12 Drug: NS 0.9% 1000 ml Route: IV; Rate: 1 bolus; Site: left antecubital; as6 05:20 Follow up: Response: No adverse reaction; IV Status: Completed infusion; IV Intake: as6 1000ml 05:19 Drug: NS 0.9% 1000 ml Route: IV; Rate: 150 ml/hr; Site: left antecubital; as6 06:06 Follow up: IV Status: Infusion continued upon admission as6 Medication: 04:31 VIS not applicable for this client. as6 Point of Care Testing: Blood Glucose: 05:03 Blood Glucose: High (>450 mg/dL); as6 Ranges: Intake: 05:20 IV: 1000ml; Total: 1000ml. as6 Output: 06:06 Urine: 1000ml (Gillis); Total: 1000ml. as6 Outcome: 04:30 Decision to Hospitalize by Provider. ms3 06:05 Admitted to ICU accompanied by nurse, accompanied by tech, family with patient, via as6 stretcher, room 7, on monitor, with chart, Report called to Irma ELLIS 06:05 Condition: stable 06:05 Instructed on the need for admit. 06:07 Patient left the ED. as6 Signatures: Dispatcher [employer] EDMS David Torres DO DO ms3 Merced Villafana tw5 Severino Figueroa, RN RN as6 Agatha Diaz RN kd3 Corrections: (The following items were deleted from the chart) 04:37 04:36 General: pt restless, agitated, soft restraints applied to bilateral wrists . as6 as6
[2021-09-21 04:34] LABS: Urine Microscopic Reflex ORDER UMIC
[2021-09-21 04:35] LABS: Urine Specific Gravity/Preg 1.015 (1.005-1.030)
[2021-09-21 04:57] LABS: Protime INR 1.36
[2021-09-21 04:59] LABS: Urine Amorphous Sediment 1+ /HPF (NONE SEEN); Urine Bacteria 20-50 /HPF (<20); Urine Coarse Granular Casts 0-5 /LPF (NONE SEEN); Urine Mucus 2+ /HPF (NONE SEEN); Urine RBC <5 /HPF (NONE SEEN)
[2021-09-21] MEDS ORDERED: INSULIN -REGULAR HUMAN 100 UNIT in NA CHLORIDE 0.9% 100 ML IV SCH (06:26)
[2021-09-21] MEDS ORDERED: NACHLORIDE 0.45% 1,000 ML IV SCH (06:26)
[2021-09-21 07:26] LABS: BUN Blood Urea Nitrogen 30 mg/dL (7-18); Glomerular Filtration Rate 49 ml/min (=/>90); HDL Cholesterol 51 mg/dL (40-60); LDL Cholesterol, Calculated 26 mg/dL (<130); Potassium 4.8 mmol/L (3.5-5.1); Sodium Level 142 mmol/L (136-145)
[2021-09-21 07:29] LABS: Bicarbonate < 8 mmol/L (21-32); Glucose Level 453 mg/dL (74-106)
[2021-09-21] MEDS: D5 0.45 NS 1,000 ML IV SCH ×4 (09:57→20:42)
[2021-09-21] MEDS: HEPARIN 5000 UNIT/ML 1 ML VIAL SQ SCH ×2 (10:42→21:20)
[2021-09-21 10:44] LABS: BUN Blood Urea Nitrogen 27 mg/dL (7-18); Glomerular Filtration Rate 55 ml/min (=/>90); Glucose Level 210 mg/dL (74-106); Potassium 4.3 mmol/L (3.5-5.1); Sodium Level 142 mmol/L (136-145)
[2021-09-21 10:51] LABS: Bicarbonate < 8 mmol/L (21-32)
[2021-09-21 12:20] LABS: Arterial Blood Carboxyhemoglob 1.2 % (0-1.5); Blood Gas Oxyhemoglobin 87.7 % (94-97); Blood O2 Saturation 90.1 % (92-98.5)
[2021-09-21] MEDS ORDERED: LIDOCAINE 1% MPF 5 ML VIAL ONE (13:32)
[2021-09-21 14:43] LABS: BUN Blood Urea Nitrogen 25 mg/dL (7-18); Glomerular Filtration Rate 67 ml/min (=/>90); Glucose Level 223 mg/dL (74-106); Potassium 4.4 mmol/L (3.5-5.1); Sodium Level 140 mmol/L (136-145)
[2021-09-21 14:44] LABS: Bicarbonate 12 mmol/L (21-32)
[2021-09-21 16:54] VITALS: O2SAT 100
[2021-09-21] MEDS ORDERED: D5 0.45 NS 500 ML IV SCH (18:00)
--- NOTE | 2021-09-21 18:36 | P.HP ---
Certification for Inpatient Patient admitted to: Inpatient With expected LOS: >2 Midnights Patient will require the following post-hospital care: None Practitioner: I am a practitioner with admitting privileges, knowledge of patient current condition, hospital course, and medical plan of care. Services: Services provided to patient in accordance with Admission requirements found in Title 42 Section 412.3 of the Code of Federal Regulations Patient History Date of Service: 09/21/21 Reason for admission: Diabetic ketoacidosis History of Present Illness: That she was altered and confused. She was severely acidotic. She was started on insulin drip and IV fluids. Her neurologic functioning has improved. She is clinically doing a little bit better. She is on IV fluids and insulin drip. We will hold off on a diet until she has more awake and alert and interacting better. Continue monitoring her anion gap. She normally wears an insulin pump which we will continue once her gap is closed, and she is tolerating diet. Allergies morphine Allergy (Intermediate, Verified 09/21/21 10:00) sob, itching hydrocodone [Hydrocodone] Allergy (Mild, Verified 09/21/21 10:00) Itching sulfamethoxazole [From Bactrim] Allergy (Mild, Verified 09/21/21 10:00) Itching tramadol Allergy (Mild, Verified 09/21/21 10:00) Itching trimethoprim [From Bactrim] Allergy (Mild, Verified 09/21/21 10:00) Itching sulfam Allergy (Uncoded 09/21/21 10:00) Itching sulfame Allergy (Uncoded 09/21/21 10:00) Itching Home Medications: Insulin Lispro-Aabc [Lyumjev] See Protocol IP TITR 09/21/21 - Past Medical/Surgical History Has patient received pneumonia vaccine in the past: No Diabetic: Yes -: SVT -: 3 cardiac Ablation's -: Gastric sleeve -: Dehydration and N/V -: dka -: PT is supposed to be on insulin pump, but it fell out on vacation -: Ablation -: Gastric sleeve - Family History Father Medical History: Hypertension Brother Medical History: GI disease, Diabetes - Social History Smoking Status: Never smoker Alcohol use: Yes CD- Drugs: No Caffeine use: Yes Place of Residence: Home Review of Systems 10-point ROS is otherwise unremarkable Physical Examination - Vital Signs Temperature: 99.3 F Blood Pressure: 89/65 Pulse: 123 Respirations: 20 Pulse Ox (%): 100 - Physical Exam General: Alert, In no apparent distress, Oriented x3 HEENT: Atraumatic, PERRLA, Mucous membr. moist/pink, EOMI, Sclerae nonicteric Neck: Supple, 2+ carotid pulse no bruit, No LAD, Without JVD or thyroid abnormality Respiratory: Clear to auscultation bilaterally, Normal air movement Cardiovascular: Regular rate/rhythm, Normal S1 S2 Gastrointestinal: Normal bowel sounds, Soft and benign, Non-distended, No tenderness Musculoskeletal: No clubbing, No swelling, No tenderness Integumentary: No rashes Neurological: Normal gait, Normal speech, Normal strength at 5/5 x4 extr, Normal tone, Normal affect Lymphatics: No axilla or inguinal lymphadenopathy - Studies Laboratory Data (last 24 hrs) 09/21/21 04:30: PT 15.0 H, INR 1.36, APTT 33.3 09/21/21 04:27: Sodium Cancelled, Potassium Cancelled, BUN Cancelled, Creatinine Cancelled, Glucose Cancelled, Total Bilirubin Cancelled, AST Cancelled, ALT Cancelled, Alkaline Phosphatase Cancelled 09/21/21 03:43: WBC 22.6 H*, Hgb 12.8, Hct 43.6, Plt Count 227 09/21/21 03:43: Sodium 132 L, Potassium 5.4 H, BUN 31 H, Creatinine 1.83 H, Glucose 881 H*, Phosphorus 7.9 H, Total Bilirubin 0.5, AST 22, ALT 28, Alkaline Phosphatase 122 H, Amylase 24 L, Lipase 12 L Assessment & Plan - Problems (Diagnosis) (1) DKA (diabetic ketoacidosis) Onset Date: 10/31/15 Current Visit: No Status: Acute (2) Dehydration Onset Date: 10/31/15 Current Visit: No Status: Acute - Plan 1. Continue with insulin drip 2. Continue with aggressive IV hydration 3. Monitor hemoglobin A1c 4. Blood sugars every hour 5. Check BMP every 6 hours 6. Mid Wife regarding blood sugars 7. Repeat acetone level in a.m. 8. GI DVT prophylaxis Discharge Plan: Home Plan to discharge in: Greater than 2 days - Advance Directives Does patient have a Living Will: No Does patient have a Durable POA for Healthcare: No - Code Status/Comfort Care Code Status Assessed: Yes Code Status: Full Code Critical Care: No Time Spent Managing PTS Care (In Minutes): 45
[2021-09-21 18:38] LABS: BUN Blood Urea Nitrogen 23 mg/dL (7-18); Bicarbonate 17 mmol/L (21-32); Glomerular Filtration Rate 65 ml/min (=/>90); Glucose Level 262 mg/dL (74-106); Potassium 4.1 mmol/L (3.5-5.1); Sodium Level 139 mmol/L (136-145)
--- NOTE | 2021-09-21 21:44 | RAD REPORT ---
EXAM DESCRIPTION: RAD - Chest Single View - 09/21/2021 4:24 am CLINICAL HISTORY: The patient is 31 years old and is Female; DKA TECHNIQUE: Frontal view of the chest. COMPARISON: No relevant prior studies available. FINDINGS: Lungs: Unremarkable. No consolidation. Pleural space: Unremarkable. No pneumothorax. Heart: Unremarkable. Mediastinum: Unremarkable. Bones/joints: Unremarkable. IMPRESSION: No acute findings in the chest. Electronically signed by: Ronald Interiano MD 09/21/2021 4:33 AM CDT Due to temporary technical issues with the PACS/Fluency reporting system, reports are being signed by the in house radiologists without review as a courtesy to insure prompt reporting. The interpreting radiologist is fully responsible for the content of the report.
[2021-09-21 23:57] LABS: BUN Blood Urea Nitrogen 20 mg/dL (7-18); Bicarbonate 18 mmol/L (21-32); Glomerular Filtration Rate 76 ml/min (=/>90); Glucose Level 231 mg/dL (74-106); Potassium 3.9 mmol/L (3.5-5.1); Sodium Level 139 mmol/L (136-145)
[2021-09-22] MEDS: D5 0.45 NS 1,000 ML IV SCH (00:51)
[2021-09-22 02:37] LABS: BUN Blood Urea Nitrogen 16 mg/dL (7-18); Bicarbonate 16 mmol/L (21-32); Glomerular Filtration Rate 80 ml/min (=/>90); Glucose Level 195 mg/dL (74-106); Potassium 3.4 mmol/L (3.5-5.1); Sodium Level 137 mmol/L (136-145)
[2021-09-22] MEDS: D5.45NS W/KCL 20MEQ 20 MEQ/1,000 ML BAG IV SCH ×2 (03:33→07:05)
[2021-09-22 07:49] LABS: BUN Blood Urea Nitrogen 13 mg/dL (7-18); Bicarbonate 19 mmol/L (21-32); Glomerular Filtration Rate 88 ml/min (=/>90); Glucose Level 152 mg/dL (74-106); Potassium 3.7 mmol/L (3.5-5.1); Sodium Level 138 mmol/L (136-145)
[2021-09-22] MEDS ORDERED: INSULIN GLARGINE 100 UNIT/ML SQ ONE (08:00)
[2021-09-22] MEDS: HEPARIN 5000 UNIT/ML 1 ML VIAL SQ SCH ×2 (08:09→20:46)
[2021-09-22] MEDS: ONDANSETRON 4 MG/2 ML VIAL IV PRN ×2 (08:10→13:08)
[2021-09-22] MEDS: CEFTRIAXONE 1,000 MG in NA CHLORIDE 0.9% 50 ML IVPB SCH (08:11)
[2021-09-22] MEDS ORDERED: METOPROLOL TAR 25 MG TAB PO ONE (12:44)
--- NOTE | 2021-09-22 14:29 | EKG ---
Test Date: 2021-09-21 Test Time: 04:01:53 Brand Engineer: MEASUREMENT RESULTS: Intervals: Rate: 122 OH: 136 QRSD: 88 QT: 316 QTc: 450 [place]: P: 63 OH: 136 QRS: 90 T: 34 INTERPRETIVE STATEMENTS: Sinus tachycardia Rightward axis Borderline ECG Compared to ECG 08/21/2021 08:43:12 Sinus rhythm no longer present Electronically Signed On 09-22-21 14:28:32 CDT by Francisco J Lovell
[2021-09-22] MEDS ORDERED: NA CHLORIDE 0.9% 1,000 ML IV ONE ×2 (15:33→16:00)
[2021-09-22] MEDS ORDERED: PROMETHAZINE INJ 25 MG/ML AMP IV ONE ×2 (15:37→16:00)
[2021-09-22 16:39] LABS: BUN Blood Urea Nitrogen 8 mg/dL (7-18); Bicarbonate 22 mmol/L (21-32); Glomerular Filtration Rate 97 ml/min (=/>90); Glucose Level 95 mg/dL (74-106); Potassium 3.6 mmol/L (3.5-5.1); Sodium Level 141 mmol/L (136-145)
[2021-09-22] MEDS: PANTOPRAZOLE 40MG TABLET PO SCH (17:44)
[2021-09-22] MEDS: NA CHLORIDE 0.9% 1,000 ML IV SCH (17:44)
[2021-09-23] MEDS: ONDANSETRON 4 MG/2 ML VIAL IV PRN ×2 (01:55→08:15)
[2021-09-23 05:07] LABS: Absolute Lymphocytes (CBC) 0.9 K/uL (0.7-4.9); Hematocrit 29.9 % (36.0-45.0); Lymphocytes % 20.8 % (15.3-44.8); MPV 10.7 fL (7.6-11.3); RBC Red Blood Cell Count 3.26 M/uL (3.86-4.86)
[2021-09-23 05:16] LABS: Albumin 2.7 g/dL (3.4-5.0); Bilirubin Total 0.3 mg/dL (0.2-1.0); Potassium 3.3 mmol/L (3.5-5.1); Protein, Total 5.2 g/dL (6.4-8.2)
[2021-09-23 06:43] VITALS: BMI 28.2
[2021-09-23] MEDS ORDERED: KCL 20 MEQ/100 mL IVPB 20 MEQ/100 ML BAG IV SCH (07:00)
[2021-09-23] MEDS: CEFTRIAXONE 1,000 MG in NA CHLORIDE 0.9% 50 ML IVPB SCH (08:16)
[2021-09-23] MEDS: HEPARIN 5000 UNIT/ML 1 ML VIAL SQ SCH ×2 (08:17→20:36)
[2021-09-23] MEDS: PANTOPRAZOLE 40MG TABLET PO SCH ×2 (08:17→16:45)
[2021-09-23] MEDS: NA CHLORIDE 0.9% 1,000 ML IV SCH (08:19)
--- NOTE | 2021-09-23 10:05 | P.PN ---
Subjective Date of Service: 09/22/21 Subjective: No new changes, No C/O voiced, Improving Still having some nausea. Patient wanted her dinner. We will continue monitoring her overnight. Review of Systems 10-point ROS is otherwise unremarkable Physical Examination - Vital Signs Temperature: 99.3 F Blood Pressure: 89/65 Pulse: 123 Respirations: 20 Pulse Ox (%): 100 - Physical Exam General: Alert, In no apparent distress, Oriented x3 Respiratory: Clear to auscultation bilaterally, Normal air movement Cardiovascular: Regular rate/rhythm, Normal S1 S2, No murmurs Gastrointestinal: Normal bowel sounds, Soft and benign, Non-distended, No tenderness Musculoskeletal: No clubbing, No swelling, No tenderness Neurological: Sensation intact, Cranial nerves 3-12 intact - Studies Microbiology Data (last 24 hrs): 09/21/21 04:15 Clean Catch Urine [place] Count - Final No growth. 09/21/21 04:15 Clean Catch Urine - Final No growth. Medications List Reviewed: Yes Assessment & Plan - Problems (Diagnosis) (1) DKA (diabetic ketoacidosis) Onset Date: 10/31/15 Current Visit: No Status: Acute (2) Dehydration Onset Date: 10/31/15 Current Visit: No Status: Acute - Plan 1. Continue with insulin drip 2. Continue with aggressive IV hydration 3. Monitor hemoglobin A1c 4. Blood sugars every hour 5. Check BMP every 6 hours 6. Mechanic Foreman regarding blood sugars 7. Repeat acetone level in a.m. 8. GI DVT prophylaxis - Advance Directives Does patient have a Living Will: No Does patient have a Durable POA for Healthcare: No - Code Status/Comfort Care Code Status: Full Code
[2021-09-23] MEDS ORDERED: PROMETHAZINE INJ 25 MG/ML AMP IV ONE (11:34)
--- NOTE | 2021-09-23 19:23 | RAD REPORT ---
EXAM DESCRIPTION: CTAbdomen Pelvis W Contrast - 09/23/2021 7:04 pm CLINICAL HISTORY: Abdominal pain. Intractable nausea vomiting COMPARISON: CT ABD PELVIS W CONTRAST dated 07/18/2008 TECHNIQUE: Biphasic CT imaging of the abdomen and pelvis was performed with 100 ml non-ionic IV cont rast. All CT scans are performed using dose optimization technique as appropriate and may include automated exposure control or mA/KV adjustment according to patient size. FINDINGS: Small amount of right pleural fluid with mild posterior right lung base infiltrate. Mild a telectasis is seen in the posterior left lung base. Mild diffuse fatty liver is present. Cholecystectomy clips are seen. Postsurgical changes are present about the stomach. The spleen, pancreas, adrenal glands kidneys are within normal limits. No bowel obstruction, free air, abscess. Small amount of fluid is seen in the lower abdomen pelvis. A ppendectomy suspected. No evidence of significant lymphadenopathy. Tiny air bubble is present in the urinary bladder. Mild lumbosacral degenerative changes. IMPRESSION: Mild diffuse fatty liver is present. Mild free fluid in the lower abdomen and pelvis. Small air bubble is present in the urinary bladder which could indicate cystitis.
[2021-09-23 20:58] VITALS: BP 119/73; TEMP 98
--- NOTE | 2021-10-17 01:10 | P.DS ---
Discharge Date: 09/23/21 Disposition: ROUTINE DISCHARGE Discharge Condition: GOOD Reason for Admission: Diabetic ketoacidosis - Problems (1) DKA (diabetic ketoacidosis) Onset Date: 10/31/15 Status: Acute (2) Dehydration Onset Date: 10/31/15 Status: Acute Brief History of Present Illness: That she was altered and confused. She was severely acidotic. She was started on insulin drip and IV fluids. Her neurologic functioning has improved. She is clinically doing a little bit better. She is on IV fluids and insulin drip. We will hold off on a diet until she has more awake and alert and interacting better. Continue monitoring her anion gap. She normally wears an insulin pump which we will continue once her gap is closed, and she is tolerating diet. Hospital Course: Patient has done well during hospital stay. Clinically, patient is much better. At this time, patient is stable for discharge home. Patient will follow-up with consultants and PCP as an outpatient. Vital Signs/Physical Exam: Temp Pulse Resp BP Pulse Ox 98 F 102 H 15 119/73 100 09/23/21 20:00 09/23/21 20:00 09/23/21 20:00 09/23/21 20:00 09/23/21 20:00 General: Alert, In no apparent distress, Oriented x3 Laboratory Data at Discharge: WBC 4.1 K/uL (4.3-10.9) L D 09/23/21 04:47 Hgb 10.1 g/dL (12.0-15.0) L D 09/23/21 04:47 Hct 29.9 % (36.0-45.0) L D 09/23/21 04:47 Plt Count 102 K/uL (152-406) L D 09/23/21 04:47 PT 15.0 SECONDS (9.5-12.5) H 09/21/21 04:30 INR 1.36 09/21/21 04:30 APTT 33.3 SECONDS (24.3-36.9) 09/21/21 04:30 Sodium 142 mmol/L (136-145) 09/23/21 04:47 Potassium 3.3 mmol/L (3.5-5.1) L 09/23/21 04:47 BUN 7 mg/dL (7-18) 09/23/21 04:47 Creatinine 0.63 mg/dL (0.55-1.3) 09/23/21 04:47 Glucose 101 mg/dL (74-106) 09/23/21 04:47 Phosphorus 7.9 mg/dL (2.5-4.9) H 09/21/21 03:43 Total Bilirubin 0.3 mg/dL (0.2-1.0) 09/23/21 04:47 AST 270 U/L (15-37) H D 09/23/21 04:47 ALT 124 U/L (12-78) H 09/23/21 04:47 Alkaline Phosphatase 81 U/L (45-117) 09/23/21 04:47 Triglycerides 330 mg/dL (<150) H 09/21/21 06:56 Cholesterol 143 mg/dL (<200) 09/21/21 06:56 HDL Cholesterol 51 mg/dL (40-60) 09/21/21 06:56 Cholesterol/HDL Ratio 2.80 09/21/21 06:56 Amylase 24 U/L (25-115) L 09/21/21 03:43 Lipase 12 U/L (73-393) L 09/21/21 03:43 Home Medications: Insulin Lispro-Aabc [Lyumjev] See Protocol IP TITR 09/21/21 Pantoprazole [Protonix Tab*] 40 mg PO BIDAC #60 tab 09/23/21 New Medications: Pantoprazole [Protonix Tab*] 40 mg PO BIDAC #60 tab Physician Discharge Instructions: OK TO DC IV AND DC HOME FOLLOW-UP WITH PCP IN 1-2 WEEKS RETURN TO THE ER IF SYMPTOMS WORSENS CALL ME AT [phone] IF ANY QUESTIONS REGARDING HOSPITAL STAY CALL NURSING STATION AT [phone] IF ANY NURSING RELATED QUESTIONS DURING HOSPITAL STAY Diet: ADA Activity: Fall precautions Followup: NONE,NONE [Primary Care Provider] - Time spent managing pt's care (in minutes): 35
== END 2021-09-23 21:30 | disposition home or self-care (01) | DRG 639 ==
LOC: ER 03:33 → ERHOLD 05:24 → 3RD-ICU 05:42
PROVIDERS: ADMIT Hospitalist; ATTEND Hospitalist
DX: E11.10 Type 2 diabetes mellitus with ketoacidosis without coma (principal); E86.0 Dehydration; Z20.822 Contact with and (suspected) exposure to COVID-19; Z98.84 Bariatric surgery status
CPT/HCPCS: 36415; 51702; 71045; 74177; 80048; 80053; 80061; 80076; 81003; 81015; 81025; 82010; 82150; 82805; 82947; 83605; 83690; 84100; 85025; 85610; 85730; 87040; 87086; 87088; 93005; 96365; 96366; 99285; J1644; J1815; J2405; J2550; J3480; J7030; J7799; Q9967; U0003

== ENCOUNTER 2021-09-28 12:45 | Inpatient (IN) | payer BC ==
--- OUTSIDE RECORDS SUMMARY | 2021-09-28 12:50 | XMS REPORT | Continuity of Care Document ---
:1990 Author Organization [facility] t Address [address] [place] [address] Care Team Providers Name Role Phone CRISTIANE, A Primary Care Physician Unavailable CRISTIANE, A Attending Clinician Unavailable Que_Gene Attending Clinician Unavailable [email or web address] Attending Clinician Unavailable Doctor Unassigned, Name Attending Clinician Unavailable Ramon VELASCO Attending Clinician Pob, Lab Main Attending Clinician Unavailable Rashel VLEASCO, A Attending Clinician Arsenio MATA Attending Clinician Unavailable Provider, Urgent Care Attending Clinician Unavailable Only, Test Attending Clinician Unavailable Eduardo Scott Attending Clinician Unavailable Arsenio Palm Attending Clinician Unavailable Que_Gene Admitting Clinician Unavailable [email or web address] Admitting Clinician Unavailable WONDIFUL Admitting Clinician Unavailable Physician, Primary or Family Admitting Clinician Unavailabl e Payers Payer Name Policy Type Policy Number Effective Date Expiration Date S ource [facility] [id number] 2014 EMPLOYEE PLAN 00:00:00 [place] [id number] 2020 [place] (PPO[place] 00:00:00 Problems Condition Condition Condition Status Onset Resolution Last Treating Co mments Source Name Details Category Date Date Treatment Clinician Date Type 1 Type 1 Problem Active [place] diabetes Diabetes 3-05 Family mellitus Mellitus 00:00: Practi c 00 e Dizziness Dizziness Disease Active Uni vers 2-04 ity of 00:00: [place] [facility] Dyspnea on Dyspnea on Disease Active U nivers exertion exertion 2-04 ity of 00:00: [place] [facility] Fatigue, Fatigue, Disease Active Unive rs unspecifie unspecifie 2-04 it y of d type d type 00:00: [place] [facility] Clammy Clammy Disease Active Univers skin skin 2-04 ity of 00:00: [place] [facility] Rhinorrhea Rhinorrhea Disease Active U nivers 2-04 ity of 00:00: [place] [facility] Viral Viral Disease Active Univers syndrome syndrome 2-04 ity of 00:00: [place] [facility] Obesity Obesity Problem Active [facility] 6-23 Family 00:00: Practic 00 e General General Problem Active [place] finding of Finding of 7 [facility] observatio Observatio 00:00: Pr actic n of n of 00 e patient Patient Finding Finding Problem Active [facility] related to Related to 30 [facility] sleep Sleep 00:00: Practic 00 e Anxiety [...] 00 e Insulin Insulin Problem Active 2016-04 [place] pump Pump 0-10 Family present Present 00:00: Practic 00 e Long-term Long-term Problem Active 2016-04 Luan french current Current 0-10 Family use of Use of 00:00: Practic insulin Insulin 00 e Cardiovasc Cardiovasc Problem Active 2016-04 V illage ular ular 0-10 Family measuremen Measuremen 00:00: Pr actic t - t - 00 e finding Finding Clinical Clinical Problem Active 2016-04 Feliciano ge finding Finding 0-10 Family 00:00: Practic 00 e SVT SVT Disease Active Overview: Univer s (supravent (supravent 3-21 Formattin ity of ricular ricular 00:00: g of this [place] tachycardi tachycardi 00 note Me dical a) a) might be Branch different from the original. Dr. Pendleton ([facility]), followed q6mos Diabetic Diabetic Disease Active Unive rs keto-acido keto-acido 9-15 it y of sis sis 00:00: Medical Branch Sinus Sinus Disease Active Univers tachycardi tachycardi 9-14 it y of a a 00:00: Medical Branch Insomnia Insomnia Disease Active Unive rs 3-27 ity of 00:00: [place] 00 Medical Branch Vitamin D Vitamin D Disease Active Overview: Univers deficiency deficiency 8-19 Formattin ity of 00:00: g of this note Medical might be Branch different from the original. ICD10 Diagnosis Term Die [employer] Supervisor Utility Obesity Obesity Disease Active Overview: Univ ers 5-02 Formattin ity of 00:00: g of this note Medical might be Branch different from the original. ICD10 Diagnosis Term Die [employer] Supervisor Utility Diabetes Diabetes Disease Active Overview: Un leeann mellitus mellitus 2-23 Formattin ity of 00:00: g of this [place] 00 note Medical might be Branch different from the original. 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 Claudy Franklin [facility] Sinusitis Sinusitis Problem Active [facility] [...] hydrocod DA Active U 2019- [facility] 00 l of [...] DA Active U ITCHING 2019- [facility] one [facility] 00:[facility]: [facility] 00 l of [...] 00 l of [place] Sulfa DA Active NM 2016-0 [facility] (Sulfona 4-18 Woman's mide 00:00: Hospita Antibiot 00 l of ics) [place] morphine DA Active SV 2016-0 [facility] 4-18 [facility] 00:[facility] 00 l of [place] hydrocod DA Active NM 2016-0 [facility] one 4-18 [facility] 00[facility]: [facility] 00 l of [place] tramadol DA Active NM 2016-0 [facility] 4-18 [facility] 00:[facility]: [facility] 00 l of [place] Sulfa DA Active NM ITCHING 2016-0 [facility] (Sulfona 4-18 Woman's mide 00:00: Hospita Antibiot 00 l of ics) [place] morphine DA Active SV SHORTNESS OF HC A BREATH 4-18 [facility] 00:00: [facility]ospita 00 l of [place] hydrocod DA Active NM ITCHING [facility] one 4-18 [facility] 00:00: [facility]ospita 00 l of [place] tramadol DA Active NM ITCHING 2016- [facility] 4-18 [facility] 00:[facility]: [facility]ospita 00 l of [place] SULFA Drug Active ITCHING Univers (SULFONA Class 3-27 ity of MIDE [...] Medical s Branch MORPHINE DRUG Active ITCHING Univers INGREDI 8-24 ity of 00:00: [place] 00 Medical Branch Morphine Propensi Active Shortness of Univers ty to Breath 8-24 ity of [...] Group Tramadol Allergy Active [facility] Social History Social Habit Start Date Stop Date Quantity Comments Source History [facility] o f [place] Alcohol Frequency Medical Branch History [facility] o [facility] Alcohol Std Drinks Medica l Branch History [facility] o [facility] Alcohol Binge [facility] Exposure to Not sure [facility] SARS-CoV-2 (event) Medica l Branch Alcohol intake 2021-07-15 2021-07-15 .14 /d [facility] 00:00:00 00:00:00 Medical Branch Alcohol Comment 2014-07-15 2014-07-15 social [facility] 00:00:00 00:00:00 Medical Branch Sex Ass[birth year] At [birth year] [facility] 00:00:00 00:00:00 Medical Branch Smoking Status Start Date Stop Date Source Never smoker [facility] Medical Branch Medications Ordered Filled Start Stop Current Ordering Indication Dosage Frequency Signature Comments Components Source Medication Medication Date Date Medication? Clinician (SIG) Name Name ketorolac 2021- No [id number] 60mg Uni vers (TORADOL) 07-13 ity of injection 22:30: 21:45 [place] 60 mg 00 :00 Medical Branch ketorolac 2021- No [id number] 60mg 60 mg, U nivers (TORADOL) 07-13 Intramuscu ity of injection 22:30: 21:45 [place] ONCE[place] 60 mg 00 :00 1 dose, On Medical Fri Branch 07/13/21 at 1730, Routine ketorolac 2021- No [id number] 60mg Uni vers (TORADOL) 07-13 ity of injection 22:30: 21:45 [place] 60 mg 00 :00 Medical Branch ketorolac 2021- No [id number] 60mg 60 mg, U nivers (TORADOL) 07-13 Intramuscu ity of injection 22:30: 21:45 lar, ONCE, [place] 60 mg 00 :00 1 dose, On Medical Fri Branch 07/13/21 at 1730, Routine metoprolol Yes Univers succinate 3-17 ity of XL 50 mg 24 00:00: [place] hr tablet 00 Medical Branch metoprolol Yes Univers succinate 3-17 [...] 00:00: [place] hr tablet 00 Medical Branch metoprolol Yes Univers succinate 3-17 [...] injection 00 Medical Branch SERTraline 2020-04 Yes [id number] 50mg Take 1 U nivers 50 mg 1-16 tablet by ity of tablet 00:00: mouth [place] 00 daily. Medical Branch SERTraline 2020-04 Yes [id number] 50mg Take 1 U nivers 50 mg 1-16 tablet by ity of tablet 00:00: mouth [place] 00 daily. Medical Branch SERTraline 2020-04 Yes [id number] 50mg Take 1 U nivers 50 mg 1-16 tablet by ity of tablet 00:00: mouth [place] 00 daily. Medical Branch SERTraline 2020-04 Yes [id number] 50mg Take 1 U nivers 50 mg 1-16 tablet by ity of tablet 00:00: mouth [place] 00 daily. Medical Branch SERTraline 2020-04 Yes [id number] 50mg Take 1 U nivers 50 mg 1-16 tablet by ity of tablet 00:00: mouth [place] 00 daily. Medical Branch SERTraline 2020-04 Yes [id number] 50mg Take 1 U nivers 50 mg 1-16 tablet by ity of tablet 00:00: mouth [place] 00 daily. Medical Branch ketorolac 2020-04- No [id number] 10mg Take 1 U nivers 10 mg 04-29-27 tablet by ity of tablet 00:00: 00:00 mouth [place] 00 :00 every 6 Medical (six) Branch hours as needed (pain not relieved by acetaminop hen). Take with food. ketorolac 2020-04- No [id number] 10mg Take 1 U nivers 10 mg 04-2927 tablet by ity of tablet 00:00: 00:00 mouth [place] 00 :00 every 6 Medical (six) Branch hours as needed (pain not relieved by acetaminop hen). Take with food. ketotifen Yes [id number] 1[drp] Place 1 Univers (ZADITOR) [id number] Drop in ity of 0.025 % 00:00: both eyes [place] (0.035 %) 00 2 (two) Medical ophthalmic times Branch solution daily. ketotifen Yes [id number] 1[drp] Place 1 Univers (ZADITOR) 9-13 9102 Drop in ity of 0.025 % 00:00: both eyes [place] (0.035 %) 00 2 (two) Medical ophthalmic times Branch solution daily. ketotifen 2020-0 Yes [id number] 1[drp] Place 1 Univers (ZADITOR) [id number] Drop in ity of 0.025 % 00:00: both eyes [place] (0.035 %) 00 2 (two) Medical ophthalmic times Branch solution daily. ketotifen 0 Yes [id number] 1[drp] Place 1 Univers (ZADITOR) [id number] Drop in ity of 0.025 % 00:00: both eyes [place] (0.035 %) 00 2 (two) Medical ophthalmic times Branch solution daily. ketotifen 0 Yes [id number] 1[drp] Place 1 Univers (ZADITOR) 9 [id number] Drop in ity of 0.025 % 00:00: both eyes [place] (0.035 %) 00 2 (two) Medical ophthalmic times Branch solution daily. ketotifen 0 Yes [id number] 1[drp] Place 1 Univers (ZADITOR) 01-01 9102 [...] 00:00: [place] 00 Medical Branch T:SLIM X2 1-0 Yes Univers Crtg 8-05 ity of 00:00: [place] 00 Medical Branch TRUSTEEL 2020-0 Yes Univers INFUSION 8-05 ity of SET 23" 00:00: [place] IS 00 Medical Branch DEXCOM G6 2020-0 Yes Univers TRANSMITTER 8-05 ity of Mell 00:00: [place] 00 Medical Branch DEXCOM G6 2020-0 Yes Univers SENSOR Mell 8-05 ity of 00:00: [place] 00 Medical Branch T:SLIM X2 1-0 Yes Univers Crtg 8-05 ity of 00:00: [place] 00 Medical Branch TRUSTEEL 2020-0 Yes Univers INFUSION 8-05 ity of SET 23" 00:00: [facility] 00 Medical Branch DEXCOM G6 2020-0 Yes Univers TRANSMITTER 8-05 ity of Mell 00:00: [place] 00 Medical Branch DEXCOM G6 2020-0 Yes Univers SENSOR Mell 8-05 ity of 00:00: [place] [facility] T:SLIM X2 2020-0 Yes Univers Crtg 8-05 ity of 00:00: [place] 00 Medical Branch TRUSTEE 2020-0 Yes Univers INFUSION 8-05 ity of SET 23" 00:00: [facility] 00 Medical Branch DEXCOM G6 2020-0 Yes Univers TRANSMITTER 8-05 ity of Mell 00:00: [place] 00 Medical Branch DEXCOM G6 2020-0 Yes Univers SENSOR Mell 8-05 ity of 00:00: [place] [facility] T:SLIM X2 1-0 Yes Univers Crtg 8-05 ity of 00:00: [place] [facility] TRUSTEE 2020-0 Yes Univers INFUSION 8-05 ity of SET 23" 00:00: [place] IS 00 Medical Branch DEXCOM G6 2020-0 Yes Univers TRANSMITTER 8-05 ity of Mell 00:00: [place] 00 Medical Branch DEXCOM G6 2020-0 Yes Univers SENSOR Mell 8-05 ity of 00:00: [place] 00 Medical Branch LYUMJEV 2020-0 Yes Univers U-100 7-20 ity of INSULIN 100 00:00: [place] unit/mL 00 Medical Soln Branch LYUMJEV 2020-0 Yes Univers U-100 7-20 ity of INSULIN 100 00:00: [place] unit/mL 00 Medical Soln Branch LYUMJEV 2021-0 Yes Univers U-100 7-20 ity of INSULIN 100 00:00: [place] unit/mL 00 [facility] LYUMJEV Yes Univers U-100 7-20 ity of INSULIN 100 00:00: [place] unit/mL 00 [facility] LYUMJEV Yes Univers U-100 7-20 ity of INSULIN 100 00:00: [place] unit/mL 00 [facility] LYUMJEV Yes Univers U-100 7-20 ity of INSULIN 100 00:00: [place] unit/mL 00 [facility] fluticasone Yes [id number] 1 spray Univers propionate 2-07 each ity of 50 00:00: nostril [place] mcg/actuati 00 twice a Medic al on nasal day for 5 Branch spray days then daily fluticasone Yes [id number] 1 spray Univers propionate 2-07 each ity of 50 00:00: nostril [place] mcg/actuati 00 twice a Medic al on nasal day for 5 Branch spray days then daily fluticasone Yes [id number] 1 spray Univers propionate 2-07 each ity of 50 00:00: nostril [place] mcg/actuati 00 twice a Medic al on nasal day for 5 Branch spray days then daily fluticasone Yes [id number] 1 spray Univers propionate 2-07 each ity of 50 00:00: nostril [place] mcg/actuati 00 twice a Medic al on nasal day for 5 Branch spray days then daily fluticasone 0 Yes [id number] 1 spray Univers propionate 2-07 each ity of 50 00:00: nostril [place] mcg/actuati 00 twice a Medic al on nasal day for 5 Branch spray days then daily fluticasone 0 Yes [id number] 1 spray Univers propionate 2-07 each ity of 50 00:00: nostril [place] mcg/actuati 00 twice a Medic al on nasal day for 5 Branch spray days then daily flash 0 Yes [id number] 1{each} 1 Each Un leeann glucose 4-15 every 14 ity of sensor 00:00: (fourteen) [place] (FREESTYLE 00 days. Use Medi carlos JARET 14 as Branch DAY SENSOR) directed Kit with reader. flash 2018- Yes [id number] 1{each} 1 Each Un leeann glucose 4-15 every 14 ity of sensor 00:00: (fourteen) [place] (FREESTYLE 00 days. Use Medi carlos JARET 14 as Branch DAY SENSOR) directed Kit with reader. flash 2019- Yes [id number] 1{each} 1 Each Un leeann glucose 4-15 every 14 ity of sensor 00:00: (fourteen) [place] (FREESTYLE 00 days. Use Medi carlos JARET 14 as Branch DAY SENSOR) directed Kit with reader. flash 2019- Yes [id number] 1{each} 1 Each Un leeann glucose 4-15 every 14 ity of sensor 00:00: (fourteen) [place] (FREESTYLE 00 days. Use Medi carlos JARET 14 as Branch DAY SENSOR) directed Kit with reader. flash 2018- Yes [id number] 1{each} 1 Each Un leeann glucose 4-15 every 14 ity of sensor 00:00: (fourteen) [place] (FREESTYLE 00 days. Use Medi carlos JARET 14 as Branch DAY SENSOR) directed Kit with reader. flash 2019- Yes [id number] 1{each} 1 Each Un leeann glucose 4-15 every 14 ity of sensor 00:00: (fourteen) [place] (FREESTYLE 00 days. Use Medi carlos JARET [...] route as directed. carvedilol carvedilol No carvedilol [facility] 3.125 mg 3.125 mg 3.125 mg Fam arthur tablet tablet tablet Practic e DEXCOM G6 DEXCOM G6 No DEXCOM [address] CGM CGM CGM Family Practic e Dexcom G6 Dexcom G6 No Dexcom G6 [facility] Sensor Sensor Sensor Family device Take device Take device Practic 3 devices 3 devices Take 3 e every month every month devices by miscell. by miscell. every route. route. month by miscell. route. Dexcom G6 Dexcom G6 No Dexcom [address] Transmitter Transmitter Transmitte Family device device [...] solution us solution ketorolac ketorolac No ketorolac [facility] 10 mg 10 mg 10 mg Family [...] pump: TDD 70 metoprolol metoprolol No metoprolol [facility] succinate succinate succinate [facility] ER 50 mg ER 50 mg ER 50 mg Pra ctic tablet,exte tablet,exte tablet,ext e nded nded ended release 24 release 24 release 24 hr hr hr nitroglycer nitroglycer nitroglyce [facility] in 0.4 mg in 0.4 mg rin 0.4 mg [facility] sublingual sublingual sublingual Practic tablet tablet tablet e sertraline sertraline No sertraline [facility] 50 mg 50 mg 50 mg Family [...] Immunizations Ordered Filled Immunization Date Status Comments [facility] e Immunization Name Name Influenza Virus 2021-01-19 Completed Universit y of Vaccine Quad IM 3+ 00:00:00 [facility] ER Influenza Virus 2021-01-19 Completed Universit y of Vaccine Quad IM 3+ 00:00:00 [facility] ER Influenza Virus 2021-01-19 Completed Universit y of Vaccine Quad IM 3+ 00:00:00 [facility] ER Influenza Virus 2021-01-19 Completed Universit y of Vaccine Quad IM 3+ 00:00:00 [facility] ER Influenza Virus 2021-01-19 Completed Universit y of Vaccine Quad IM 3+ 00:00:00 [facility] ER Influenza Virus 2021-01-19 Completed Universit y of Vaccine Quad IM 3+ 00:00:00 [facility] ER SARS-COV-2 COVID-19 2020-06-02 Completed Unive rsity of PFIZER VACCINE 00:00:00 [facility] [place] [facility] SARS-COV-2 COVID-19 2020-06-02 Completed Unive rsity of PFIZER VACCINE 00:00:00 [facility] [place] [facility] SARS-COV-2 COVID-19 2020-06-02 Completed Unive rsity of PFIZER VACCINE 00:00:00 [facility] [place] [facility] SARS-COV-2 COVID-19 2020-06-02 Completed Unive rsity of PFIZER VACCINE 00:00:00 [facility] [place] [facility] SARS-COV-2 COVID-19 2020-06-02 Completed Unive rsity of PFIZER VACCINE 00:00:00 [facility] [place] [facility] SARS-COV-2 COVID-19 2020-06-02 Completed Unive rsity of PFIZER VACCINE 00:00:00 [facility] [place] [facility] COVID-19 COVID-19 2020-05-22 Completed [facility] (SARS-COV-2) (SARS-COV-2) 00:00:00 Practice vaccine, vaccine, unspecified unspecified SARS-COV-2 COVID-19 2020-05-12 Completed Unive rsity of PFIZER VACCINE 00:00:00 [facility] [place] [facility] SARS-COV-2 COVID-19 2020-05-12 Completed Unive rsity of PFIZER VACCINE 00:00:00 [facility] [place] [facility] SARS-COV-2 COVID-19 2020-05-12 Completed Unive rsity of PFIZER VACCINE 00:00:00 [facility] [place] [facility] SARS-COV-2 COVID-19 2020-05-12 Completed Unive rsity of PFIZER VACCINE 00:00:00 [facility] [place] [facility] SARS-COV-2 COVID-19 2020-05-12 Completed Unive rsity of PFIZER VACCINE 00:00:00 [facility] [place] [facility] SARS-COV-2 COVID-19 2020-05-12 Completed Unive rsity of PFIZER VACCINE 00:00:00 [facility] [place] [facility] influenza, influenza, 2020-01-20 Completed [facility] injectable, injectable, 00:00:00 Practice quadrivalent quadrivalent Influenza Virus 2018-01-29 Completed Universit y of Vaccine Quad IM 3+ 00:00:00 [facility] ER Influenza Virus 2018-01-29 Completed Universit y of Vaccine Quad IM 3+ 00:00:00 [facility] ER Influenza Virus 2018-01-29 Completed Universit y of Vaccine Quad IM 3+ 00:00:00 [facility] ER Influenza Virus 2018-01-29 Completed Universit y of Vaccine Quad IM 3+ 00:00:00 [facility] ER Influenza Virus 2018-01-29 Completed Universit y of Vaccine Quad IM 3+ 00:00:00 [facility] ER Influenza Virus 2018-01-29 Completed Universit y of Vaccine Quad IM 3+ 00:00:00 [facility] ER TDAP 2016-07-20 Completed University of 00:00:00 [facility] TDAP 2016-07-20 Completed University of 00:00:00 [facility] TDAP 2016-07-20 Completed University of 00:00:00 [facility] TDAP 2016-07-20 Completed University of 00:00:00 [facility] TDAP 2016-07-20 Completed University of 00:00:00 [facility] TDAP 2016-07-20 Completed [facility] 00:00:00 [facility] tetanus toxoid, tetanus toxoid, 2015-04-21 Completed [facility] 00:00:00 Practice Vital Signs Vital Name Observation Time Observation Value Comments Source BP Diastolic 2021-08-14 00:00:00 60 mm[Hg] [facility] Height 2021-08-14 00:00:00 63 [in_i] [facility] BMI (Body Mass 2021-08-14 00:00:00 27.8 kg/m2 [facility]) Practice BP Systolic 2021-08-14 00:00:00 91 mm[Hg] [facility] Practice Body Weight 2021-08-14 00:00:00 156.8 [lb_av] [facility] Practice Systolic blood 2021-07-13 21:13:00 100 mm[facility]Hg[facility] Diastolic blood 2021-07-13 21:13:00 68 mm[facility]Hg[facility] 2021-07-13 21:13:00 102 /min [facility] Body height 2021-07-13 21:13:00 160 cm [facility] Body weight 2021-07-13 21:13:00 73.936 kg [facility] BMI 2021-07-13 21:13:00 28.87 kg/m2 [facility] Oxygen saturation 2021-07-13 21:13:00 98 /min [facility] in Arterial blood Medical Br anch by Pulse oximetry BP Diastolic 2021-05-16 00:00:00 81 mm[Hg] [facility] Height 2021-05-16 00:00:00 63 [in_i] [facility] Practice BMI (Body Mass 2021-05-16 00:00:00 32.2 kg/m2 [facility] BP Systolic 2021-05-16 00:00:00 115 mm[Hg] [facility] Body Weight 2021-05-16 00:00:00 182 [lb_av] [facility] Practice BP Diastolic 2020-10-11 00:00:00 77 mm[Hg] [facility] Height 2020-10-11 00:00:00 63 [in_i] [facility] Practice BMI (Body Mass 2020-10-11 00:00:00 30.5 kg/m2 [facility] Practice BP Systolic 2020-10-11 00:00:00 113 mm[Hg] [facility] Practice Body Weight 2020-10-11 00:00:00 172.4 [lb_av] [facility] Practice BP Diastolic 2020-07-14 00:00:00 77 mm[Hg] [facility] Height 2020-07-14 00:00:00 63 [in_i] [facility] Practice BMI (Body Mass 2020-07-14 00:00:00 32.8 kg/m2 [facility] Practice BP Systolic 2020-07-14 00:00:00 108 mm[Hg] [facility] Practice Body Weight 2020-07-14 00:00:00 185 [lb_av] [facility] Practice BP Diastolic 2020-04-11 00:00:00 68 mm[Hg] [facility] Practice Height 2020-04-11 00:00:00 63 [in_i] [facility] Practice BMI (Body Mass 2020-04-11 00:00:00 31.4 kg/m2 [facility] BP Systolic 2020-04-11 00:00:00 118 mm[Hg] [facility] Practice Body Weight 2020-04-11 00:00:00 177 [lb_av] [facility] Practice BP Diastolic 2019-02-10 00:00:00 75 mm[Hg] [facility] Height 2019-02-10 00:00:00 63 [in_i] [facility] BMI (Body Mass 2019-02-10 00:00:00 25.7 kg/m2 [facility]) Group BP Systolic 2019-02-10 00:00:00 120 mm[Hg] [facility] Body Weight 2019-02-10 00:00:00 145.1 [lb_av] [facility] Procedures Procedure Date / Time Performing Clinician Source Performed EXTERNAL PROVIDER 2021-08-23 05:01:00 Doctor Unassigned, No [facility] RECORDS Name Medical Branch CONSENT/REFUSAL FOR 2021-07-16 14:50:21 [facility] Name Medical Branch ASSIGNMENT OF BENEFITS 2021-07-16 14:50:10 Doctor Trinissigned, No [facility] Hysterectomy (Total) 2019-06-20 00:00:00 [facility] Practice CT, sinuses, w/o 2019-02-10 00:00:00 Carlito molina contrast Group Laparoscopic Sleeve 2015-09-20 00:00:00 [facility] Gastrectomy Practice Sinus Surgery [facility] Plan of Care Planned Activity Planned Date Details Comments Source Diagnostic Test 2021-08-14 hemoglobin A1C, [facility] F amily Pending 00:00:00 fingerstick [code = Practice hemoglobin A1C, fingerstick] Diagnostic Test 2021-08-14 glucose, [facility] Fami ly Pending 00:00:00 fingerstick, blood Practice [code = glucose, fingerstick, blood] Future Appointment 2021-11-13 Fredrick Phillips mague [facility] 00:00:[id number], [place] [address] Instructions Carlito rizo Group Encounters Start End Encounter Admission Attending Care Care Encounter Source Date/Time Date/Time Type Type Clinicians Facility Department ID 2021-09-28 2021-09-28 [id number] -20 Univers 11:30:00 11:30:00 ZAID [id number] [facility] 2021-09-28 2021-09-28 [facility] [id number] Univers 11:30:00 11:30:00 ZAID [facility] 2021-09-05 2021-09-05 Outpatient Que_T VFP VFP [id number] 0-20 [facility] 04:42:00 04:42:00 [id number] Family Practic e 2021-09-04 2021-09-04 Outpatient Bui_Q_WAGDN VFP VFP 114 1030-20 [facility] 11:36:00 11:36:00 U [id number] Family Practic e 2021-08-23 2021-08-23 Orders Doctor SANCHEZ 1.2.840.114 [id number] Univers 00:00:00 00:00:00 Only Unassigned, MADHU 350.1.13.[address] [facility] 4.2.7.2.686 Rod as [phone] [facility] [address] [place] 2021-08-15 2021-08-15 Telephone Ramon [facility] 1.2.298.317 [id number] Univers 00:00:00 00:00:00 [facility] 350.1.13.10 it y of [place] 4.2.7.2.686 Rod as EDMAR?BLEA [phone] Wa dical KNEY [address] MEDICAL OFFICE BUILDING 2021-08-14 2021-08-14 Outpatient Que_T VFP [facility] [id number] 0-20 Village 12:32:00 12:32:00 [id number] Family Practic e 2021-08-14 2021-08-14 Claudy VF [place] - [id number] V illage 00:00:00 00:00:00 [facility] Family Que, Medical - Practi c MD: [id number] VM_HOU_Shad e [place] [facility], [address], [place] [address] , Ph. 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 10 ity of [place].2.7.2.686 [place] PROF[place] [phone] Wa dicsallie [facility] 353 [facility] 2021-07-16 2021-07-16 Outpatient R [facility] [id number] Univers 11:00:00 11:00:00 [id number] ity of [facility] 2021-07-16 2021-07-16 Outpatient R RASHEL [facility] [id number] Univers 11:00:00 11:00:00 ASIADIFUL ity o f [facility] 2021-07-16 2021-07-16 Orders Doctor SANCHEZ 1.2.840.114 [id number] Univers 00:00:00 00:00:00 Only Unassigned, MADHU 350.1.13.10 ity of [place] [facility] 4.2.7.2.686 Rod as [phone] [facility] 00[address] [place] 2021-07-13 2021-07-13 Office Rashel [facility] 1.2.840.114 [id number] [facility] 16:00:00 17:03:21 Visit Haritha Cesar [facility] 350.1.13.10 andrewJessicaVIOLA 4.2.7.2.686 Rod as EDMAR?BLEA [phone] Wa luci [address] MEDICAL OFFICE [facility] 2021-07-02 2021-07-02 Outpatient Daniel_T VFP VFP [id number] 0-20 [facility] 02:19:00 02:19:00 [id number] Family Practic e 2021-05-31 2021-05-31 Outpatient Daniel_T VFP VFP [id number] 0-20 [facility] 03:30:00 03:30:00 [id number] Family Practic e 2021-05-17 2021-05-17 Outpatient Daniel_T VFP VFP [id number] 0-20 [facility] 11:37:00 11:37:00 [id number] Family Practic e 2021-05-17 2021-05-17 Outpatient Bui_Q_WAGDN VFP VFP 114 1030-20 [facility] 11:37:00 11:37:00 U [id number] Family Practic e 2021-05-16 2021-05-16 Outpatient Daniel_T VFP VFP [id number] 0-20 [facility] 05:07:00 05:07:00 [id number] Family Practic e 2021-05-16 2021-05-16 Claudy VFP [place] - [id number] V illage 00:00:00 00:00:00 [facility] Family GreyJaime - Prackalyan sharma MD: [id number] ALPHONSO_NICOLAS_Garland e Shadow [facility], [address], [place] [address] , Ph. 2021-03-02 2021-03-02 Outpatient Daniel_T VFP VFP [id number] 0-20 [facility] 09:46:00 09:46:00 [id number] Family Practic e 2020-10-13 2020-10-13 Outpatient Daniel_T VFP VFP [id number] 0-20 [facility] 12:26:00 12:26:00 [id number] Family Practic e 2020-10-13 2020-10-13 Outpatient Daniel_T VFP VFP [id number] 0-20 [facility] 12:26:00 12:26:00 [id number] Family Practic e 2020-10-13 2020-10-13 Outpatient Bui_Q_WAGDN VFP VFP 114 103-20 [facility] 12:26:00 12:26:00 U [id number] Family Practic e 2020-10-11 2020-10-11 Outpatient Daniel_T VFP VFP [id number] 0-20 [facility] 09:55:00 09:55:00 [id number] Family Practic e 2020-10-11 2020-10-11 Claudy VFP [place] - [id number] V illage 00:00:00 00:00:00 [facility] Family Que, Jaime - Prackalyan sharma MD: [id number] VM_NICOLAS_Garland e Shadow [facility], [address], [place] [address] , Ph. 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 Tree Grower Alie Layne [facility] 1.2.840.114 [id number] 14:03:59 14:18:59 Visit Lab Main [place] 350.1.13.10 [place] 4.2.7.2.686 Professio [phone] [facility] 353 Building 2020-07-19 2020-07-19 Outpatient Daniel_T VFP VFP [id number] 0-20 [facility] 06:36:00 06:36:00 [id number] Family Practic e 2020-07-19 2020-07-19 Outpatient Bui_Q_WAG VFP VFP [id number] 30-20 [facility] 06:36:00 06:36:00 [id number] Family Practic e 2020-07-14 2020-07-14 Outpatient Daniel_T VFP VFP [id number] 020 [facility] 11:54:00 11:54:00 [id number] Family Practic e 2020-07-14 2020-07-14 Outpatient Daniel_T VFP VFP [id number] 0-20 [facility] 11:54:00 11:54:00 [id number] Family Practic e 2020-07-14 2020-07-14 Claudy VFP [place] - [id number] V illage 00:00:00 00:00:00 [facility] Family Grey, Jaime - Prackalyan sharma MD: [id number] VM_HOU_Shad e Shadow [place] [address], [address], [place] [address] , Ph. 2020-05-28 2020-05-28 Urgent Provider, [facility] 1.2.398.009 [id number] 17:04:02 17:24:[address] [facility] 350.1.13.10 Care [place] 4.2.7.2.686 Professio [phone] nal 044 Office Building One 2020-05-15 2020-05-15 Dwarf Tree Grower Xi [facility] 1.2.840.114 [id number] 15:04:50 15:19:50 Visit Lab Main [place] 350.1.13.10 [place] 4.2.7.2.686 Professio [phone] [facility] 353 Building 2020-05-15 2020-05-15 Orders Doctor DANIEL 1.2.840.114 [id number] 00:00:00 00:00:00 Only Unassigned, MADHU 350.1.13.10 [place] [facility] 4.2.7.2.686 [id number] 009 2020-05-05 2020-05-05 Laboratory Only, [facility] 1.2.840.114 [id number] 14:37:30 14:52:30 Only Test [place] 350.1.13.10 [place] 4.2.7.2.686 [place] [id number] 353 2020-04-15 2020-04-15 Outpatient Daniel_T VFP VFP [id number] 0-20 [facility] 01:55:00 01:55:00 [id number] Family Practic e 2020-04-15 2020-04-15 Outpatient Bui_Q_WAG VFP VFP [id number] [facility] 01:55:00 01:55:00 [id number] Family Practic e 2020-04-11 2020-04-11 Outpatient Daniel_T VFP VFP [id number] 020 [facility] 11:57:00 11:57:00 [id number] Family Practic e 2020-04-11 2020-04-11 Claudy VFP [place] - [id number] V illage 00:00:00 00:00:00 [facility] QueJaime - Prackalyan sharma MD: [id number] VM_HOU_Dani e [facility], [facility] [address], [place] [address] , Ph. 2020-04-10 2020-04-10 Outpatient Daniel_T VFP VFP [id number] 20 [facility] 05:10:00 05:10:00 [id number] Family Practic e 2020-04-04 2020-04-04 Outpatient Bui_Q_WAG VFP VFP [id number] [facility] 11:25:00 11:25:00 [id number] Family Practic e 2020-03-07 2020-03-06 Inpatient FREDERICK Scott, [facility] [id number] [facility] 11:00:00 11:00:00 [facility]ki [facility] 2020-02-01 2020-02-01 Dwarf Tree Grower Alie Layne [facility] 1.2.840.114 [id number] 08:33:57 08:48:57 Visit Lab Main [place] 350.1.13.10 [place] 4.2.7.2.686 Nirmala [id number] [address] 2020-02-01 2020-02-01 Orders Doctor DANIEL 1.2.840.114 [id number] 00:00:00 00:00:00 Only Unassigned, MADHU 350.1.13.10 [place] [facility] 4.2.7.2.686 [id number] [id number] 2020-01-13 2020-01-13 Nurse Rashel [facility] 1.2.840.114 [id number] 14:54:12 15:28:24 Visit [facility] 350.1.13.10 [place] 4.2.7.2.686 Profbhavinio [phone] nal 044 Office Building One 2020-01-03 2020-01-03 Office DINH Mata 1.2.840.114 [id number] 13:16:48 14:12:27 Visit AnnaCuídate Arsenio Coveo 350.1.13.10 [place] 4.2.7.2.686 Profbhavinio [phone] nal 044 Office Building One 2019-12-29 2019-12-29 Outpatient EL Holste, [facility] [id number] [facility] 12:00:00 12:00:00 Jeanine 67 [facility] 2019-11-04 2019-11-04 Outpatient Holste, [facility] [id number] [facility] 07:00:00 07:00:00 Jeanine 70 [facility] 2019-10-28 2019-10-28 Outpatient EL Holste, [facility] [id number] [facility] 12:00:00 12:00:00 Jeanine 90 [facility] 2019-02-10 2019-02-10 Palivela [facility] [place] - [id number] [place] 00:00:00 00:00:00 MD Nathan: [address] - [facility] 201, Otol[facility]ol [facility] [address] , Ph. Results Test Description Test Time Test Comments Results Result Comments Source Hemoglobin A1c measurement device panel 2021-08-14 10:43:27 Test Item Value Reference Range Interpretation Comme nts Hemoglobin A1C Fingerstick: (test code = Hemoglobin A1C Fingerstick :) 7.0 [facility] PracticeGlucose [Mass/volume] in Capillary [id number] 10:39:53 Test Item Value Reference Range Interpretation Comments Blood Glucose: mg/dl (test code = Blood 256 Glucose: mg/dl) [facility] PracticeHemoglobin A1c measurement device [id number] 15:03:04 Test Item Value Reference Range Interpretation Comments Hemoglobin A1C Fingerstick: (test code 8.1 = Hemoglobin A1C Fingerstick:) [facility] PracticeGlucose [Mass/volume] in Capillary [id number] 15:02:56 Test Item Value Reference Range Interpretation Comments Blood Glucose: mg/dl (test code = Blood 136 Glucose: mg/dl) [id number] 16:42:00 Test Item Value Reference Range Interpretation Comments ENDOMETRIUM,BIOPSY (test code = ENDOMETBX) RUN DATE: 03/09/20 [facility] PAGE 1 RUN TIME: 175 Specimen Inquiry RUN USER: INTERFACE PATIENT: SIDNEY ROBERTSON LOC: AIMEE U #: [id number] AGE/SX: ROOM: [facility] RE03/07/20REG DR: Mikki Scott MD : 86 BED: A DIS: 03/08/20 STATUS: DIS Jack TLOC: SPEC #: [id number] RECD: 03/08/20-0750 STATUS: CHELSEA HAWKINS #: [id number] EARLE: 03/08/20- SUBM DR: Mikki Scott MD ENTERED: 03/08/20-0751 SP TYPE: ENDOMETBX OT DR: ORDERED: LEVEL IV CODES: [id number] - ENDOMETRIUM, NO PROCEDURES: LEVEL IV (Incomplete) [...] - no significant pathologic alteration CPT code(s): 30554 x6, 17610 [facility]/wpd CONTINUED ON NEXT PAGE RUN DATE: 03/09/20 [facility] PAGE 2 RUN TIME: 1751 Specimen Inquiry RUN USER: INTERFACE SPEC #: [id number] PATIENT: SIDNEY ROBERTSON #[id number] (Continued) GROSS DESCRIPTION ANATOMIC SOURCE OF TISSUE [...] with fimbriae. Sectioning reveals a pinpoint lumen. Environmental Services Specialist sections are submitted as follows: CONTINUED ON NEXT PAGE RUN DATE: 03/09/20 [facility] PAGE 3 RUN TIME: 1751 Specimen Inquiry RUN USER: INTERFACE SPEC #: [id number] PATIENT: SIDNEY ROBERTSON #[id number] (Continued) GROSS DESCRIPTION (Continued) G1 - serosal adhesions and fatty tissue G2 - anterior cervix G3 - posterior cervix G4 - anterior endometrium G5 - posterior endometrium G6 - right fallopian tube G7 - left fallopian tube michelle 03/08/20 Signed Mariam Aparicio MD 03/09/20 1642 END OF REPORT CBC W/AUTO [id number] 06:58:00 Test Item Value Reference Range Interpretation [...] REQUIRED (test NORMAL NORMAL code = PLTMR) [id number] 06:50:00 Test Item Value Reference Range Interpretation Comments GLUBED (test code = GLUBED) 130 mg/dL 65-110 H [id number] 23:39:00 Test Item Value Reference Range Interpretation Comments GLUBED (test code = GLUBED) 266 mg/dL 65-110 H [id number] 17:06:00 Test Item Value Reference Range Interpretation Comments GLUBED (test code = GLUBED) 219 mg/dL 65-110 H [id number] 14:17:00 Test Item Value Reference Range Interpretation Comments GLUBED (test code = GLUBED) 135 mg/dL 65-110 H [id number] 09:59:00 Test Item Value Reference Range Interpretation Comments GLUBED (test code = GLUBED) 110 mg/dL 65-110 N AG HEPATITIS B [id number] 14:47:00 Test Item Value Reference Range Interpretation Comments AG HEPATITIS B SURFACE (test code NONREACTIVE NONREACTIVE = HBSAG) IS CONSENT FORM SIGNED FOR HIV TESTING? YAB HEPATITIS C [id number] 14:47:00 Test Item Value Reference Range Interpretation Comments AB HEPATITIS C (test code = NONREACTIVE NONREACTIVE HCVAB) SIGNAL TO CUTOFF (test code = 0.09 <0.80 N CUTOFF) IS CONSENT FORM SIGNED FOR HIV TESTING? YAB HIV 1 14:47:00 Test Item Value Reference Range Interpretation Comments AB HIV 1 2 (test NONREACTIVE NONREACTIVE [facility] = GNZ85XI) 4th Gen HIV Ag/Ab Combo Screen IS CONSENT FORM SIGNED FOR HIV TESTING? YAG HEPATITIS B [id number] 14:15:00 Test Item Value Reference Range Interpretation Comments AG HEPATITIS B SURFACE (test code NONREACTIVE NONREACTIVE = HBSAG) IS CONSENT FORM SIGNED FOR HIV TESTING? YAB HEPATITIS C [id number] 14:15:00 Test Item Value Reference Range Interpretation Comments AB HEPATITIS C (test code = HCVAB) NONREACTIVE SIGNAL TO CUTOFF (test code = CUTOFF) <0.80 IS CONSENT FORM SIGNED FOR HIV TESTING? YAB HIV 1 14:15:00 Test Item Value Reference Range Interpretation Comments AB HIV 1 2 (test code = UUS20HA) NONREACTIVE IS CONSENT FORM SIGNED FOR HIV TESTING? YURINALYSIS [id number] 14:14:00 Test Item Value Reference Range Interpretation [...] URINE SAMPLE: CLEAN CATCHCOVID 19 Asymptomatic IH [id number] 13:50:00 Test Item Value Reference Range Interpretation [...] and/o r diagnosis of CO VID-19 under Wcorytj10 4(b)(1) of the Act, 21 U.S .C. 360bbb-3(b)(1), unless theauthorizatio n is terminated or r evoked sooner. HCG SERUM [id number] 13:43:00 Test Item Value Reference Range Interpretation Comments HCG SERUM QUAL (test code = HCGQL) NEGATIVE CBC W/AUTO [id number] 13:22:00 Test Item Value Reference Range Interpretation [...] NORMAL NORMAL code = PLTMR) - DUP AB/PEL/SC/[id number] 07:44:00 Patient Name: SIDNEY ROBERTSON Unit No: [id number] EXAMS: CPT CODE: [id number] DUP AB/PEL/SC/LTD 31672 CLINICAL HISTORY: Pelvic pain. COMPARISON: August 21, [...] [facility] NAME: SIDNEY ROBERTSON Radiology Department PHYS: Jeanine Wills [address] : 1990 AGE: 29 SEX: F [place] [address] LOC: F.RADPHONE #: [phone] EXAM DATE: 11/04/2019 STATUS: REG CLI FAX #: [phone] RAD NO: Page 1 Signed Report Patient Name: SIDNEY ROBERTSON Unit No: [id number] EXAMS: CPT CODE: [id number] DUP AB/PEL/SC/LTD 68478 <Continued> [facility] NAME: SIDNEY ROBERTSON Radiology Department PHYS: [facility] Jeanine Palm [address] : 1990 AGE: 29 SEX: F [place] [address] LOC: F.RAD PHONE #: [phone] EXAM DATE: 11/04/2019 STATUS: REG CLI FAX #: [phone] RAD NO: Page 2 Signed Report- US PELVIS [id number] 07:44:00 Patient Name: SIDNEY ROBERTSON Unit No: [id number] EXAMS: CPT CODE: [id number] US PELVIS COMPLETE 34140 CLINICAL HISTORY: Pelvic pain. COMPARISON: August 21, [...] [facility] NAME: SIDNEY ROBERTSON Radiology Department PHYS: Jeanine Wills [address] : 1990 AGE: 29 SEX: F [place] [address] LOC: Louie.RADPHONE #: [phone] EXAM DATE: 11/04/2019 STATUS: REG CLI FAX #: [phone] RAD NO: Page 1 Signed Report Patient Name: AILYNSIDNEY Cesar Unit No: [id number] EXAMS: CPT CODE: [id number] US PELVIS COMPLETE 63330 <Continued> [facility] NAME: SIDNEY ROBERTSON Radiology Department PHYS: Jeanine Wills [address] : 1990 AGE: 29 SEX: F [place] [address] LOC: F.RAD PHONE #: [phone] EXAM DATE: 11/04/2019 STATUS: REG CLI FAX #: [phone] RAD NO: Page 2 Signed Report- US TRANSVAGINAL [id number] 07:44:00 Patient Name: SIDNEY ROBERTSON Unit No: [id number] EXAMS: CPT CODE: [id number] US TRANSVAGINAL W/PELVIS 61334 CLINICAL HISTORY: Pelvic pain. COMPARISON: August 21, [...] CC: Jeanine Palm MD Technologist: Janelle Sam RDNH Probe: [id number] TrnscrbdD/ (0744) BrunaYOS Orig Print D/T: S: 11/04/2019 (0747) [facility]'s [facility] NAME: SIDNEY ROBERTSON Radiology Department PHYS: Jeanine Wills [address] : 1990 AGE: 29 SEX: F [place], [place] [address] LOC: MargarethRADPHONE #: [phone] EXAM DATE: 11/04/2019 STATUS: REG CLI FAX #: [phone] RAD NO: Page 1 Signed Report Patient Name: SIDNEY ROBERTSON Unit No: [id number] EXAMS: CPT CODE: [id number] US TRANSVAGINAL W/PELVIS 85221 <Continued> [facility]: SIDNEY ROBERTSON Radiology Department PHYS: JAILENE.Jeanine Anton [address] : 1990 AGE: 29 SEX: F [place], [place] [address] LOC: F.RAD PHONE #: [phone] EXAM DATE: 11/04/2019 STATUS: REG CLI FAX #: [phone] RAD NO: Page 2 Signed Report
[2021-09-28 13:38] LABS: Absolute Lymphocytes (CBC) 1.4 K/uL (0.7-4.9); Hematocrit 36.7 % (36.0-45.0); Lymphocytes % 32.8 % (15.3-44.8); MPV 10.2 fL (7.6-11.3); RBC Red Blood Cell Count 3.97 M/uL (3.86-4.86)
[2021-09-28] MEDS ORDERED: NA CHLORIDE 0.9% 1,000 ML ONE ×2 (13:40→16:45)
[2021-09-28] MEDS ORDERED: ONDANSETRON 4 MG/2 ML VIAL ONE (13:40)
[2021-09-28 13:58] LABS: Albumin 3.2 g/dL (3.4-5.0); Bilirubin Total 0.4 mg/dL (0.2-1.0); Potassium 3.2 mmol/L (3.5-5.1); Protein, Total 6.3 g/dL (6.4-8.2)
[2021-09-28] MEDS ORDERED: FAMOTIDINE 20 MG TAB ONE (14:02)
[2021-09-28] MEDS ORDERED: IBUPROFEN 200 MG TAB PO ONE (14:03)
--- NOTE | 2021-09-28 14:41 | RAD REPORT ---
EXAM DESCRIPTION: CT - Abdomen Pelvis W Contrast - 09/28/2021 2:27 pm CLINICAL HISTORY: abdominal pain COMPARISON: Abdomen Pelvis W Contrast dated 09/23/2021 TECHNIQUE: Biphasic, helical CT imaging of the abdomen and pelvis was performed following 100 ml non -ionic IV contrast. No oral contrast administered. All CT scans are performed using dose optimization technique as appropriate and may include automated exposure control or mA/KV adjustment according to patient size. FINDINGS: No suspicious findings in the lung bases. The liver, spleen, and pancreas show no suspicious findings. Gallbladder is absent. No abnormal bilia ry tree dilatation. Symmetric renal function is seen with no hydronephrosis or suspicious renal mass. No pyelonephritis o r acute parenchymal process. No bladder abnormalities. No adrenal abnormalities. No dilated bowel loops or bowel wall thickening. Appendectomy clips are present. Gastric sleeve surgi carlos changes also noted. No free air, free fluid or inflammatory stranding. No hernia, mass or bulky lymphadenopathy. No suspicious bony findings. IMPRESSION: Contrast enhanced CT abdomen and pelvis showing no acute or emergent finding.
--- NOTE | 2021-09-28 15:02 | ER ---
Nurse's Notes [facility] Name: Lilibeth Sharif Age: 31 yrs Sex: Female : 1990 Arrival Date: 09/28/2021 Time: 12:46 Bed 19 Private MD: Diagnosis: Acute pancreatitis without necrosis or infection, unspecified Presentation: 09/28 12:50 Chief complaint: Patient states: i was just discharged Friday night for DKA. yesterday tw2 ii started throwing up and loosing my balance. and chest pain when i take a deep breath. also having headache. and i feel like behind my eyes is pulsating with pain even around into my anabaptist area. my sugars are back to normal but my stomach is still hurting. Coronavirus screen: At this time, the client does not indicate any symptoms associated with coronavirus-19. Ebola Screen: Patient denies travel to an Ebola-affected area in the 21 days before illness onset. Initial Sepsis Screen: Does the patient meet any 2 criteria? No. Patient's initial sepsis screen is negative. Does the patient have a suspected source of infection? No. Patient's initial sepsis screen is negative. Risk Assessment: Do you want to hurt yourself or someone else? Patient reports no desire to harm self or others. Onset of symptoms was September 28, 2021. 12:50 Method Of Arrival: Ambulatory tw2 12:50 Acuity: JAMISON 3 tw2 Triage Assessment: 12:52 General: Appears uncomfortable, well groomed, Behavior is calm, cooperative, tw2 appropriate for age. Pain: Complains of pain in abdomen. Neuro: Reports dizziness, headache behind eyes. GI: Reports lower abdominal pain, upper abdominal pain, nausea, vomiting. EMERGENCY RESPONSE COORDINATOR: 12:55 LMP N/A - Hysterectomy tw2 Historical: - Allergies: 12:52 tramadol; tw2 12:52 sulfamethoxazole-trimethoprim; tw2 12:52 Morphine; tw2 12:52 HYDROCODONE; tw2 12:52 Diflucan; tw2 - Home Meds: 12:52 insulin pump [Active]; Protonix 20 mg Oral TbEC 1 tab once daily [Active]; Metoprolol tw2 Tartrate Oral [Active]; Zofran Oral [Active]; - PMHx: 12:52 Diabetes - IDDM; SVT; DKA; tw2 - PSHx: 12:52 2 cardiac ablations; hysterectomy; tw2 - Immunization history:: Client reports receiving the 2nd dose of the Covid vaccine. - Social history:: Smoking status: Patient uses alcohol, occasionally. Screenin:00 Abuse screen: Denies threats or abuse. Nutritional screening: No deficits noted. tw2 Tuberculosis screening: No symptoms or risk factors identified. Fall Risk None identified. Assessment: 13:30 General: Appears in no apparent distress. Behavior is calm, cooperative. Neuro: Level iw of Consciousness is awake, alert, obeys commands, Oriented to person, place, time, situation, Moves all extremities. Cardiovascular: Patient's skin is warm and dry. Respiratory: Respiratory effort is even, unlabored. GI: Reports nausea, vomiting. Derm: Skin is intact, is healthy with good turgor. Musculoskeletal: Range of motion: intact in all extremities. 14:24 Reassessment: Patient appears in no apparent distress at this time. Patient and/or iw family updated on plan of care and expected duration. Pain level reassessed. Patient is alert, oriented x 3, equal unlabored respirations, skin warm/dry/pink. Vital Signs: 12:50 BP 126 / 75; Pulse 92; Resp 17; Temp 98.6(TE); Pulse Ox 100% on R/A; Weight 67.13 kg; tw2 Height 5 ft. 3 in. (160.02 cm) (R); Pain 6/10; 14:46 BP 116 / 79; Pulse 84; Resp 16; Pulse Ox 98% on R/A; iw 12:50 Body Mass Index 26.22 (67.13 kg, 160.02 cm) tw2 ED Course: 12:46 Patient arrived in ED. jj6 12:51 [facility] jh7 12:51 Den Estrada MD is Attending Physician. jh7 12:52 Triage completed. tw2 12:55 Arm band placed on. tw2 13:02 Bed in low position. Call light in reach. Side rails up X 1. Adult w/ patient. Pulse ox tw2 on. NIBP on. Warm blanket given. 13:25 Mariella Doshi, RN is Primary Nurse. iw 13:31 Initial lab(s) drawn, by me, sent to lab. Inserted saline lock: 22 gauge in left iw antecubital area, using aseptic technique. Blood collected. 14:29 CT Abd/Pelvis - IV Contrast Only In Process Unspecified. EDHI 15:01 Chiki Laguna MD is Hospitalizing Provider. [facility] 21:11 No provider procedures requiring assistance completed. Patient admitted, IV remains in ag7 place. Administered Medications: 13:41 Not Given (out of IV pepcidd): Pepcid (famotidine) 20 mg IVP once; dilute with 10 mL [facility] 0.9% NaCl; give over 2 minutes 13:42 Drug: NS 0.9% 1000 ml Route: IV; Rate: 1 bolus; Site: left antecubital; iw 14:45 Follow up: IV Status: Completed infusion iw 13:42 Drug: Zofran (Ondansetron) 4 mg Route: IVP; Site: left antecubital; iw 14:15 Follow up: Response: No adverse reaction iw 14:09 Drug: Ibuprofen 600 mg Route: PO; iw 15:00 Follow up: Response: No adverse reaction iw 14:09 Drug: Pepcid (famotidine) 20 mg Route: PO; iw 14:40 Follow up: Response: No adverse reaction iw 15:29 Drug: Potassium Chloride 40 mEq Route: PO; iw 15:45 Follow up: Response: No adverse reaction Medication: 21:11 VIS not applicable for this client. [facility] Outcome: 15:02 Decision to Hospitalize by Provider. [facility] 21:11 Admitted to Med/surg room 411. ag7 21:11 Condition: stable 21:18 Patient left the ED. [facility] Signatures: Dispatcher [employer] EDMS Mariella Doshi, RN RHONDA iw Jelena Gutierrez RN RN tw2 Glendy Paez jj6 Lisa Lambert RN RN ag7 Glendy Riley, ENVELOPE SEALING MACHINE OPERATOR ENVELOPE SEALING MACHINE OPERATOR [facility]
[2021-09-28] MEDS ORDERED: ONDANSETRON 4 MG/2 ML VIAL IV PRN (15:03)
--- NOTE | 2021-09-28 15:03 | EDPHYS ---
Physician Documentation [facility] Name: Lilibeth Sharif Age: 31 yrs Sex: Female : 1990 Arrival Date: 09/28/2021 Time: 12:46 Bed 19 Private MD: FAB Physician Den Estrada HPI: 09/28 12:55 This 31 yrs old Female presents to ER via Ambulatory with complaints of jh7 Vertigo. 12:55 Onset: The symptoms/episode began/occurred yesterday. Associated signs and symptoms: jh7 Pertinent positives: abdominal pain, vomiting, Pertinent negatives: chest pain, cough, diarrhea, fever. Patient presents with nausea, vomiting, and left upper quadrant pain since last night. Reports that she was discharged from the hospital Friday for DKA. Reports that her sugars have been stable, but that she is unable to hold anything down. History of a cholecystectomy.. 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 - Social history:: Smoking status: Patient uses alcohol, occasionally. ROS: 12:55 Constitutional: Negative for fever, chills, and weight loss, Eyes: Negative for injury, jh7 pain, redness, and discharge, ENT: Negative for injury, pain, and discharge, Neck: Negative for injury, pain, and swelling, Cardiovascular: Negative for chest pain, palpitations, and edema, Respiratory: Negative for shortness of breath, cough, wheezing, and pleuritic chest pain, Skin: Negative for injury, rash, and discoloration, Neuro: Negative for headache, weakness, numbness, tingling, and seizure. 12:55 Abdomen/GI: Positive for abdominal pain, nausea and vomiting, Negative for diarrhea, dysphagia, black/tarry stool. 12:55 All other systems are negative. Exam: 12:55 Eyes: Pupils equal round and reactive to light, extra-ocular motions intact. Lids and jh7 lashes normal. Conjunctiva and sclera are non-icteric and not injected. Cornea within normal limits. Periorbital areas with no swelling, redness, or edema. ENT: Nares patent. No nasal discharge, no septal abnormalities noted. Tympanic membranes are normal and external auditory canals are clear. Oropharynx with no redness, swelling, or masses, exudates, or evidence of obstruction, uvula midline. Mucous membranes moist. Neck: Trachea midline, no thyromegaly or masses palpated, and no cervical lymphadenopathy. Supple, full range of motion without nuchal rigidity, or vertebral point tenderness. No Meningismus. Cardiovascular: Regular rate and rhythm with a normal S1 and S2. No gallops, murmurs, or rubs. Normal PMI, no JVD. No pulse deficits. Respiratory: Lungs have equal breath sounds bilaterally, clear to auscultation and percussion. No rales, rhonchi or wheezes noted. No increased work of breathing, no retractions or nasal flaring. Back: No spinal tenderness. No costovertebral tenderness. Full range of motion. Skin: Warm, dry with normal turgor. Normal color with no rashes, no lesions, and no evidence of cellulitis. Neuro: Awake and alert, GCS 15, oriented to person, place, time, and situation. Sensory grossly intact. Normal gait. 12:55 Constitutional: The patient appears alert, awake, uncomfortable. 12:55 Abdomen/GI: Inspection: abdomen appears normal, Bowel sounds: normal, Palpation: moderate abdominal tenderness, in the left upper quadrant. Vital Signs: 12:50 BP 126 / 75; Pulse 92; Resp 17; Temp 98.6(TE); Pulse Ox 100% on R/A; Weight 67.13 kg; tw2 Height 5 ft. 3 in. (160.02 cm) (R); Pain 6/10; 14:46 BP 116 / 79; Pulse 84; Resp 16; Pulse Ox 98% on R/A; iw 12:50 Body Mass Index 26.22 (67.13 kg, 160.02 cm) tw2 MDM: 12:58 Patient medically screened. [facility] 15:02 Differential diagnosis: viral Infection, bacterial infection, gastroenteritis, Acute [facility] pancreatitis. Data reviewed: vital signs, nurses notes, lab test result(s), radiologic studies, CT scan. Data interpreted: Pulse oximetry: is 98 %. Interpretation: normal. Counseling: I had a detailed discussion with the patient and/or guardian regarding: the historical points, exam findings, and any diagnostic results supporting the discharge/admit diagnosis, the need for further work-up and treatment in the hospital. Response to treatment: the patient's symptoms have mildly improved after treatment. Physician consultation: Chiki Laguna MD was called at 15:03, was contacted at 15:03, regarding admission, to the telemetry unit. and will see patient shortly. ED course: Discussed the lab findings with the patient. She will be admitted for acute pancreatitis. Her symptoms improved after medication therapy. The patient agrees and understands the plan of care. She will be admitted under inpatient status to Dr. Laguna.. 09/28 13:13 Order name: CBC with Diff; Complete Time: 13:41 [facility] 09/28 13:13 Order name: CMP; Complete Time: 14:02 [facility] 09/28 13:13 Order name: Lipase; Complete Time: 14:02 [facility] 09/28 13:13 Order name: Urine Microscopic Only [facility] 09/28 15:07 Order name: Comprehensive Metabolic Panel [facility] 09/28 15:07 Order name: Comprehensive Metabolic Panel [facility] 09/28 14:04 Order name: CT Abd/Pelvis - IV Contrast Only; Complete Time: 14:49 [facility] 09/28 15:17 Order name: SARS-COV-2 RT PCR (Document "Date of Onset" if Symptomatic) 09/28 16:55 Order name: SARS-COV-2 RT PCR [facility] 09/28 17:30 Order name: Lipid Profile [facility] 09/28 18:26 Order name: Glucose, Ancillary Testing [facility] 09/28 18:42 Order name: Glucose Level [facility] 09/28 13:13 Order name: IV Saline Lock; Complete Time: 13:27 [facility] 09/28 13:13 Order name: Labs collected and sent; Complete Time: 13:27 [facility] 09/28 13:13 Order name: Urine Dipstick-Ancillary (obtain specimen) [facility] 09/28 15:07 Order name: NPO EDMI Administered Medications: 13:41 Not Given (out of IV pepcidd): Pepcid (famotidine) 20 mg IVP once; dilute with 10 mL [facility] 0.9% NaCl; give over 2 minutes 13:42 Drug: NS 0.9% 1000 ml Route: IV; Rate: 1 bolus; Site: left antecubital; iw 14:45 Follow up: IV Status: Completed infusion iw 13:42 Drug: Zofran (Ondansetron) 4 mg Route: IVP; Site: left antecubital; iw 14:15 Follow up: Response: No adverse reaction iw 14:09 Drug: Ibuprofen 600 mg Route: PO; iw 15:00 Follow up: Response: No adverse reaction iw 14:09 Drug: Pepcid (famotidine) 20 mg Route: PO; iw 14:40 Follow up: Response: No adverse reaction iw 15:29 Drug: Potassium Chloride 40 mEq Route: PO; iw 15:45 Follow up: Response: No adverse reaction iw Disposition Summary: 09/28/21 15:02 Hospitalization Ordered Hospitalization Status: Inpatient Admission [facility] Provider: Chiki Laguna [facility] Condition: Stable [facility] Problem: new [facility] Symptoms: have improved [facility] Bed/Room Type: Standard [facility] Location: Telemetry/MedSurg (Inpatient)(09/28/21 19:55) cg Room Assignment: [facility](09/28/21 20:15) cg Diagnosis - Acute pancreatitis without necrosis or infection, unspecified [facility] Forms: - Medication Reconciliation Form [facility] - SBAR form [facility] Addendum: 10/05/2021 13:56 Co-signature as Attending Physician, Den Estrada MD I agree with the assessment and c roy plan of care. Signatures: Dispatcher [employer] Den Tabares MD MD cha Williams, Irene RN Cynthia Fermin RN RHONDA Jelena Gutierrez RN RN 2 Austen Wilson RN RN Delmy Huerta Jennifer, AQUATIC HABITAT BIOLOGIST AQUATIC HABITAT BIOLOGIST [facility] Corrections: (The following items were deleted from the chart) 09/28 17:13 15:02 [facility] 18:27 15:02 Telemetry/MedSurg (Inpatient) jh7 ja1 18:27 17:13 411 eb ja1 19:55 18:27 [facility] ER HOLD ja1 cg 19:55 18:27 ERHOLD- ja1 cg 20:15 19:55 231 cg
--- NOTE | 2021-09-28 15:11 | P.HP ---
Certification for Inpatient With expected LOS: >2 Midnights Patient will require the following post-hospital care: None Practitioner: I am a practitioner with admitting privileges, knowledge of patient current condition, hospital course, and medical plan of care. Services: Services provided to patient in accordance with Admission requirements found in Title 42 Section 412.3 of the Code of Federal Regulations Patient History Date of Service: 09/30/21 (hospitalist) Reason for admission: Pancreatitis History of Present Illness: Age31 recetn admission for DKA Aw abdominal pain and vomting, LUQ pain Vomiting sugars stabel S.p cholecystectomy History of a cholecystectomy.. Allergies morphine Allergy (Intermediate, Verified 09/21/21 10:00) sob, itching hydrocodone [Hydrocodone] Allergy (Mild, Verified 09/21/21 10:00) Itching sulfamethoxazole [From Bactrim] Allergy (Mild, Verified 09/21/21 10:00) Itching tramadol Allergy (Mild, Verified 09/21/21 10:00) Itching trimethoprim [From Bactrim] Allergy (Mild, Verified 09/21/21 10:00) Itching sulfam Allergy (Uncoded 09/21/21 10:00) Itching sulfame Allergy (Uncoded 09/21/21 10:00) Itching Home Medications: Insulin Lispro-Aabc [Lyumjev] See Protocol IP TITR 09/21/21 Pantoprazole [Protonix Tab*] 40 mg PO BIDAC #60 tab 09/23/21 Metoprolol Succinate [Toprol Xl] 50 mg PO DAILY 09/28/21 - Past Medical/Surgical History Diabetic: Yes -: SVT -: 3 cardiac Ablation's -: Gastric sleeve -: Dehydration and N/V -: dka -: PT is supposed to be on insulin pump, but it fell out on vacation -: Ablation -: Gastric sleeve - Family History Father -: Hypertension Brother -: GI disease, Diabetes - Social History Alcohol use: Yes CD- Drugs: No Caffeine use: Yes Physical Examination - Vital Signs Temperature: 97 F Blood Pressure: 118/72 Pulse: 69 Respirations: 12 Pulse Ox (%): 100 - Physical Exam General: Alert Neck: Supple Respiratory: Clear to auscultation bilaterally Cardiovascular: No edema Gastrointestinal: Normal bowel sounds, Tenderness (LUQ and mid abdomen) Musculoskeletal: No clubbing Integumentary: No rashes, No breakdown - Studies Laboratory Data (last 24 hrs) 09/28/21 13:25: Sodium 142, Potassium 3.2 L, BUN 10, Creatinine 0.48 L, Glucose 81, Total Bilirubin 0.4, AST 59 H D, ALT 114 H, Alkaline Phosphatase 102, Lipase 1069 H 09/28/21 13:25: WBC 4.1 L, Hgb 12.2, Hct 36.7 D, Plt Count 161 D Assessment and Plan - Problems (Diagnosis) (1) Pancreatitis Current Visit: Yes Status: Acute Plan: Age 31 Aw acute pancreatitis Lipas elevated/ Ct neg. Absnt Gall bladder/ labs and Ct rev/ Abnormal PFT, Mild hypokalemia. Admit for IVF fluid and and pain control. DKA absent/ Pt has insulin pump/ TG levels Qualifiers: Chronicity: acute - Advance Directives Does patient have a Living Will: No Does patient have a Durable POA for Healthcare: No
[2021-09-28] MEDS ORDERED: POTASSIUM CL SA 10 MEQ TAB PO ONE (15:28)
[2021-09-28] MEDS: FENTANYL CITR 100 MCG/2 ML IV PRN (15:50)
[2021-09-28] MEDS ORDERED: FENTANYL CITR 100 MCG/2 ML ONE (15:55)
[2021-09-28 16:30] VITALS: BMI 26.2
[2021-09-28] MEDS: INSULIN -REGULAR HUMAN 50 UNIT/0.5 ML ML SQ SCH ×2 (16:30→21:00)
[2021-09-28] MEDS: NA CHLORIDE 0.9% 1,000 ML IV SCH (16:43)
[2021-09-28] MEDS ORDERED: HYDROMORPHONE HCL 1 MG/ML INJ IV ONE (18:08)
[2021-09-28] MEDS ORDERED: HYDROMORPHONE HCL 0.5 MG/0.5 ML INJ ONE (18:50)
[2021-09-28 22:54] LABS: Urine Bacteria 20-50 /HPF (<20); Urine Mucus 2+ /HPF (NONE SEEN); Urine RBC <5 /HPF (NONE SEEN)
[2021-09-29] MEDS: NA CHLORIDE 0.9% 1,000 ML IV SCH ×3 (02:12→22:41)
[2021-09-29] MEDS: ONDANSETRON 4 MG/2 ML VIAL IV PRN ×2 (02:19→16:57)
[2021-09-29] MEDS: FENTANYL CITR 100 MCG/2 ML IV PRN ×5 (02:23→22:42)
[2021-09-29 05:02] LABS: Albumin 2.5 g/dL (3.4-5.0); Bilirubin Total 0.4 mg/dL (0.2-1.0); Potassium 3.4 mmol/L (3.5-5.1); Protein, Total 5.4 g/dL (6.4-8.2)
[2021-09-29] MEDS: INSULIN -REGULAR HUMAN 50 UNIT/0.5 ML ML SQ SCH ×4 (07:30→21:00)
[2021-09-29] MEDS: ENOXAPARIN 40 MG/0.4 ML SQ SCH (08:01)
--- NOTE | 2021-09-29 18:21 | P.PN ---
Date of Service: 09/29/21 Subjective: improving, less pain still with nausea hungry ROS: 10 point ROS as noted above, otherwise negative Physical exam GEN: Alert, oriented, NAD HEENT: Normal conjunctiva, sclera anicteric CV: Regular rate and rhythm, no edema Pulm: Nonlabored respirations on room air ABD: epigastric, LUQ tender Problem List pancreatitis IDDM advance diet lipase downtrending +pain but improved, getting hungry/thirsty continue pain meds as needed; antiemetics pt has insulin pump serial abd exams Code: full Dispo: anticipate dc home tomorrrow Time Spent Managing Pts Care (In Minutes): 35
[2021-09-29] MEDS ORDERED: HYDROMORPHONE HCL 0.5 MG/0.5 ML INJ IV ONE (19:40)
[2021-09-30] MEDS: ONDANSETRON 4 MG/2 ML VIAL IV PRN ×2 (01:24→14:58)
[2021-09-30] MEDS ORDERED: HYDROMORPHONE HCL 1 MG/ML INJ IV ONE (01:29)
[2021-09-30] MEDS: FENTANYL CITR 100 MCG/2 ML IV PRN ×2 (04:30→08:31)
[2021-09-30 04:41] LABS: Absolute Lymphocytes (CBC) 1.5 K/uL (0.7-4.9); MPV 10.1 fL (7.6-11.3); RBC Red Blood Cell Count 3.18 M/uL (3.86-4.86)
[2021-09-30 05:09] LABS: ALT/SGPT 70 U/L (12-78); AST/SGOT 27 U/L (15-37); Albumin 2.5 g/dL (3.4-5.0); Alkaline Phosphatase 79 U/L (45-117); Bicarbonate 26 mmol/L (21-32); Bilirubin Total 0.3 mg/dL (0.2-1.0); Glomerular Filtration Rate 129 ml/min (=/>90); Glucose Level 103 mg/dL (74-106); Protein, Total 5.2 g/dL (6.4-8.2); Sodium Level 141 mmol/L (136-145)
[2021-09-30 05:10] LABS: BUN Blood Urea Nitrogen < 3 mg/dL (7-18)
[2021-09-30] MEDS ORDERED: HYDROMORPHONE HCL 0.5 MG/0.5 ML INJ IV ONE (06:41)
--- NOTE | 2021-09-30 07:04 | P.PN ---
Date of Service: 09/30/21 Subjective: worsening pain after clear liquid ate cheese soup / something brought by family ROS: 10 point ROS as noted above, otherwise negative Physical exam GEN: Alert, oriented, uncomfortable HEENT: Normal conjunctiva, sclera anicteric CV: Regular rate and rhythm, no edema Pulm: Nonlabored respirations on room air ABD: epigastric, LUQ tender Problem List acute pancreatitis type 1 diabetic, insulin dependent NPO, increase IVF lipase downtrending pain worsened, increase medication if worsens further, repeat CT afebrile antiemetics pt has insulin pump serial abd exams Code: full Dispo: home, ~2 days Time Spent Managing Pts Care (In Minutes): 35
[2021-09-30] MEDS: INSULIN -REGULAR HUMAN 50 UNIT/0.5 ML ML SQ SCH ×4 (07:30→21:00)
[2021-09-30] MEDS ORDERED: POTASSIUM CL 40 MEQ in NA CHLORIDE 0.9% 500 ML IV SCH (08:00)
[2021-09-30] MEDS: NA CHLORIDE 0.9% 1,000 ML IV SCH ×4 (08:30→20:30)
[2021-09-30] MEDS: ENOXAPARIN 40 MG/0.4 ML SQ SCH (08:32)
[2021-09-30] MEDS ORDERED: MAGNESIUM SULFATE 1 gm IVPB 1 GM/100 ML BAG IV ONE (08:37)
[2021-09-30] MEDS: HYDROMORPHONE HCL 1 MG/ML INJ IV PRN ×4 (10:50→23:11)
[2021-10-01] MEDS: HYDROMORPHONE HCL 1 MG/ML INJ IV PRN ×2 (03:04→07:45)
[2021-10-01] MEDS: ONDANSETRON 4 MG/2 ML VIAL IV PRN ×2 (03:10→18:34)
[2021-10-01] MEDS: NA CHLORIDE 0.9% 1,000 ML IV SCH ×3 (03:13→18:34)
[2021-10-01 05:52] LABS: Absolute Lymphocytes (CBC) 1.2 K/uL (0.7-4.9); Hematocrit 31.2 % (36.0-45.0); Lymphocytes % 27.8 % (15.3-44.8); MPV 9.9 fL (7.6-11.3); RBC Red Blood Cell Count 3.38 M/uL (3.86-4.86)
[2021-10-01 06:09] LABS: ALT/SGPT 66 U/L (12-78); AST/SGOT 25 U/L (15-37); Albumin 2.7 g/dL (3.4-5.0); Alkaline Phosphatase 88 U/L (45-117); Bicarbonate 24 mmol/L (21-32); Bilirubin Total 0.4 mg/dL (0.2-1.0); Glomerular Filtration Rate 133 ml/min (=/>90); Glucose Level 152 mg/dL (74-106); Lipase 144 U/L (73-393); Potassium 3.6 mmol/L (3.5-5.1); Protein, Total 5.6 g/dL (6.4-8.2); Sodium Level 138 mmol/L (136-145)
[2021-10-01 06:11] LABS: BUN Blood Urea Nitrogen < 3 mg/dL (7-18)
--- NOTE | 2021-10-01 07:03 | P.PN ---
Date of Service: 10/01/21 Subjective: pain worsened last night when she tried some ice chips required dilaudid q4h overnight feels slightly better this morning no new symptoms ROS: 10 point ROS as noted above, otherwise negative Physical exam GEN: Alert, oriented, uncomfortable HEENT: Normal conjunctiva, sclera anicteric CV: Regular rate and rhythm, no edema Pulm: Nonlabored respirations on room air ABD: epigastric, LUQ tenderness Problem List acute pancreatitis type 1 diabetic, insulin dependent strict NPO, IVF lipase downtrending pain worsened with PO intake strict NPO for today if requiring less pain medication, will try clears in AM if worsens further, repeat CT afebrile antiemetics pt has insulin pump serial abd exams Code: full Dispo: home, ~1-2 days Time Spent Managing Pts Care (In Minutes): 35
[2021-10-01] MEDS: INSULIN -REGULAR HUMAN 50 UNIT/0.5 ML ML SQ SCH ×4 (07:30→21:00)
[2021-10-01] MEDS: ENOXAPARIN 40 MG/0.4 ML SQ SCH (07:45)
[2021-10-01] MEDS: DEXTROSE 10%-WATER 125 ML IV PRN (08:18)
[2021-10-01] MEDS ORDERED: KCL 20 MEQ/100 mL IVPB 20 MEQ/100 ML BAG IV SCH (09:00)
[2021-10-02] MEDS: NA CHLORIDE 0.9% 1,000 ML IV SCH ×6 (01:21→23:27)
[2021-10-02] MEDS: DEXTROSE 10%-WATER 125 ML IV PRN (02:32)
[2021-10-02] MEDS: ONDANSETRON 4 MG/2 ML VIAL IV PRN (02:38)
[2021-10-02] MEDS ORDERED: NA CHLORIDE 0.9% 500 ML IV ONE ×3 (02:52→13:13)
[2021-10-02] MEDS ORDERED: MIDODRINE HCL 5 MG TABLET PO ONE (02:53)
[2021-10-02 06:35] LABS: ALT/SGPT 53 U/L (12-78); AST/SGOT 18 U/L (15-37); Albumin 2.6 g/dL (3.4-5.0); Alkaline Phosphatase 83 U/L (45-117); Bicarbonate 20 mmol/L (21-32); Bilirubin Direct 0.1 mg/dL (0-0.2); Bilirubin Total 0.4 mg/dL (0.2-1.0); Glomerular Filtration Rate 135 ml/min (=/>90); Glucose Level 100 mg/dL (74-106); Lipase 200 U/L (73-393); Magnesium 1.8 mg/dL (1.8-2.4); Potassium 3.2 mmol/L (3.5-5.1); Protein, Total 5.5 g/dL (6.4-8.2); Sodium Level 140 mmol/L (136-145)
[2021-10-02 06:36] LABS: BUN Blood Urea Nitrogen < 3 mg/dL (7-18)
[2021-10-02] MEDS: INSULIN -REGULAR HUMAN 50 UNIT/0.5 ML ML SQ SCH ×4 (07:30→20:21)
[2021-10-02] MEDS ORDERED: MAGNESIUM SULFATE 1 gm IVPB 1 GM/100 ML BAG IV ONE (08:00)
[2021-10-02] MEDS ORDERED: POTASSIUM CL SA 10 MEQ TAB PO ONE ×2 (08:00→16:00)
[2021-10-02] MEDS: ENOXAPARIN 40 MG/0.4 ML SQ SCH (08:51)
--- NOTE | 2021-10-02 16:55 | P.PN ---
Subjective Date of Service: 10/02/21 Chief Complaint: Pancreatitis Patient states she is doing better today. She tolerated clear liquid diet. She denies abdominal pain at the moment. She was hypotensive last night. Physical Examination - Vital Signs Temperature: 97.0 F Blood Pressure: 107/59 Pulse: 76 Respirations: 16 Pulse Ox (%): 99 Assessment And Plan - Plan Physical exam GEN: Alert, oriented, NAD HEENT: Normal conjunctiva, sclera anicteric CV: Regular rate and rhythm, no edema Pulm: Clear to auscultation bilaterally ABD: Soft, nontender, normal bowel sounds. Extremities: No pedal edema. Skin: No rashes Problem List acute pancreatitis type 1 diabetic, insulin dependent. Hypovolemic shock Plan: Blood pressure has improved after 2 L normal saline given since last night. lipase level normalized. Patient tolerated clear liquid diet today. Advance diet as tolerated Supportive measures with antiemetics pt has insulin pump serial abd exams. Possible discharge in a.m.
[2021-10-03 04:15] LABS: Bicarbonate 24 mmol/L (21-32); Glomerular Filtration Rate 136 ml/min (=/>90); Glucose Level 170 mg/dL (74-106); Magnesium 1.9 mg/dL (1.8-2.4); Potassium 3.7 mmol/L (3.5-5.1); Sodium Level 140 mmol/L (136-145)
[2021-10-03 04:25] LABS: BUN Blood Urea Nitrogen < 3 mg/dL (7-18)
[2021-10-03] MEDS: NA CHLORIDE 0.9% 1,000 ML IV SCH (05:28)
[2021-10-03] MEDS ORDERED: POTASSIUM CL SA 10 MEQ TAB PO ONE (06:00)
[2021-10-03] MEDS: INSULIN -REGULAR HUMAN 50 UNIT/0.5 ML ML SQ SCH (07:30)
[2021-10-03] MEDS: ENOXAPARIN 40 MG/0.4 ML SQ SCH (07:55)
[2021-10-03 08:32] VITALS: BP 101/60; TEMP 98
--- NOTE | 2021-10-03 08:34 | P.DS ---
Admission Date: 09/28/21 Discharge Date: 10/03/21 Disposition: ROUTINE DISCHARGE Discharge Condition: FAIR Reason for Admission: Pancreatitis Brief History of Present Illness: 31-year-old woman with a history of type 1 diabetes on insulin pump, recent admission admission for DKA presented with abdominal pain and vomting, pain localized more in the LUQ, symptoms associated with nausea and vomiting. Her blood sugar readings were within normal range on presentation. Her lipase elevated in the ED. She has a history of cholecystectomy. CT abdomen and pelvis did not show evidence of acute pancreatitis. Patient was hospitalized fo r further management. Hospital Course: Diagnosis acute pancreatitis type 1 diabetic, insulin dependent. Hypovolemic shock Patient admitted to the medical floor and started on supportive measures including antiemetics and IV opioids as needed for pain. Lipase level monitored trended down to normal. Patient was briefly hypotensive. Her blood pressure responded normal saline boluses. She was also aggressively hydrated. She remained on the insulin pump during the hospital stay. Patient oral intake improved slowly, she was able to tolerate full liquid diet. She denies any abdominal pain currently. She has clinically improved, vitals are stable, patient is deemed stable for discharge. Vital Signs/Physical Exam: Temp Pulse Resp BP Pulse Ox 98.0 F 67 16 101/60 99 10/03/21 08:00 10/03/21 08:00 10/03/21 08:00 10/03/21 08:00 10/03/21 08:00 General: Alert, In no apparent distress, Oriented x3 HEENT: Mucous membr. moist/pink Neck: Supple, JVD not distended Respiratory: Clear to auscultation bilaterally, Normal air movement Cardiovascular: No edema, Regular rate/rhythm, Normal S1 S2 Gastrointestinal: Normal bowel sounds, Soft and benign, Non-distended, No tenderness Musculoskeletal: No swelling Integumentary: No rashes, No cyanosis Neurological: Normal strength at 5/5 x4 extr Laboratory Data at Discharge: WBC 4.4 K/uL (4.3-10.9) 10/01/21 05:24 Hgb 10.7 g/dL (12.0-15.0) L 10/01/21 05:24 Hct 31.2 % (36.0-45.0) L 10/01/21 05:24 Plt Count 156 K/uL (152-406) 10/01/21 05:24 Sodium 140 mmol/L (136-145) 10/03/21 02:54 Potassium 3.7 mmol/L (3.5-5.1) 10/03/21 02:54 BUN < 3 mg/dL (7-18) L 10/03/21 02:54 Creatinine 0.37 mg/dL (0.55-1.3) L 10/03/21 02:54 Glucose 170 mg/dL (74-106) H 10/03/21 02:54 Magnesium 1.9 mg/dL (1.8-2.4) 10/03/21 02:54 Total Bilirubin 0.4 mg/dL (0.2-1.0) 10/02/21 03:21 AST 18 U/L (15-37) 10/02/21 03:21 ALT 53 U/L (12-78) 10/02/21 03:21 Alkaline Phosphatase 83 U/L (45-117) 10/02/21 03:21 Triglycerides 59 mg/dL (<150) 09/28/21 16:32 Cholesterol 125 mg/dL (<200) 09/28/21 16:32 HDL Cholesterol 52 mg/dL (40-60) 09/28/21 16:32 Cholesterol/HDL Ratio 2.40 09/28/21 16:32 Lipase 200 U/L (73-393) 10/02/21 03:21 Home Medications: Insulin Lispro-Aabc [Lyumjev] See Protocol IP TITR 09/21/21 Pantoprazole [Protonix Tab*] 40 mg PO BIDAC #60 tab 09/23/21 Diet: AHA Activity: Ad josé miguel Followup: Marsha Wills PA [Primary Care Provider] - 10/08/21 (Call to schedule an appointment) Time spent managing pt's care (in minutes): 34
[2021-10-03 10:03] VITALS: O2SAT 99
== END 2021-10-03 10:25 | disposition home or self-care (01) | DRG 438 ==
LOC: ER 12:45 → ERHOLD 15:03 → 4TH 20:49
PROVIDERS: ADMIT Hospitalist; ATTEND Internal Medicine Sleep Medicine
DX: K85.90 Acute pancreatitis without necrosis or infection, unspecified (principal); R57.1 Hypovolemic shock; Z98.84 Bariatric surgery status; E10.9 Type 1 diabetes mellitus without complications; Z96.41 Presence of insulin pump (external) (internal); Z20.822 Contact with and (suspected) exposure to COVID-19; Z88.2 Allergy status to sulfonamides
CPT/HCPCS: 36415; 74177; 80048; 80053; 80061; 80076; 81015; 82947; 83690; 83735; 84132; 84145; 85025; 87086; 87088; 96361; 96374; 99285; J1170; J1650; J1815; J2405; J3010; J3475; J3480; J7030; J7040; Q9967; U0003

== ENCOUNTER 2021-11-29 11:32 | Emergency (ER) | payer BC ==
--- OUTSIDE RECORDS SUMMARY | 2021-11-29 11:37 | XMS REPORT | Continuity of Care Document ---
:1990 Author Organization [facility] t Address [address] [place] [address] Care Team Providers Name Role Phone Marsha Clavo Primary Care Physician Danijhonathan_Gene Attending Clinician Unavailable Bui_Q_WAGDNU Attending Clinician Unavailable Pob, [facility] Lab Main Attending Clinician Unavailable Gabriela Allred MD Attending Clinician GABRIELA ALLRED Attending Clinician Unavailable Doctor Unassigned, [place] Attending Clinician Unavailable CAMRON NEWELL Attending Clinician Unavailable Camron Newell PA-C Attending Clinician Provider, [facility] Attending Clinician Unavailable Only, Adc Test Attending Clinician Unavailable Mikki Scott Attending Clinician Unavailable Esperanza VELASCO, Haritha Cesar Attending Clinician Jeanine Palm Attending Clinician Unavailable Daniel_T Admitting Clinician Unavailable Bui_Q_WAGDNU Admitting Clinician Unavailable CAMRON NEWELL Admitting Clinician Unavailable RIYA NAILS Admitting Clinician Unavailable Physician, No Primary or Family Admitting Clinician Unavaila ble Payers Payer Name Policy Type Policy Number Effective Date Expiration Date Juli mcclure [place] [id number] 2020 00:00:00 [place] Problems Condition Condition Condition Status Onset Resolution Last Treating Co mments Source Name Details Category Date Date Treatment Clinician Date History of History of Problem Active [facility] ill[facility] pancreatit Pancreatit 6-15 Fa anjelica is is 00:00: Practic 00 e Type 1 Type 1 Problem Active [facility] [place] diabetes Diabetes 3-05 Family mellitus Mellitus 00:00: Practi c 00 e Dizziness Dizziness Disease Active Uni vers 2-04 ity of 00:00: [place] [facility] Dyspnea on Dyspnea on Disease Active U nivers exertion exertion 2-04 ity of 00:00: [place] [facility] Fatigue, Fatigue, Disease Active Unive rs unspecifie unspecifie 2-04 it y of d type d type 00:00: [place] 00 [facility] Clammy Clammy Disease Active Univers skin skin 2-04 ity of 00:00: [place] [facility] Rhinorrhea Rhinorrhea Disease Active U nivers 2-04 ity of 00:00: [place] 00 [facility] Viral Viral Disease Active Univers syndrome syndrome 2-04 ity of 00:00: [place] 00 [facility] Obesity Obesity Problem Active Village 6-23 Family 00:00: Practic 00 e General General Problem Active [facility] finding of Finding of 10-19 Fa anjelica observatio Observatio 00:00: Pr actic n of n of 00 e patient Patient Finding Finding Problem Active Village related to Related to 30 anjelica sleep Sleep 00:00: Practic 00 e Anxiety Anxiety Disease Active Univers and and 1-14 ity of [place] [facility] Psoriasis Psoriasis Problem Active 2017-04 Luan gillian 1- Family 00:00: Practic 00 e Overweight Overweight [...] of ricular ricular 00:00: g of this [place] tachycardi tachycardi 00 note Me dical a) a) might be Branch different from the original. Dr. Pendleton ([facility]), followed q6mos Diabetic Diabetic Disease Active Unive rs keto-acido keto-acido 9-15 it y of sis sis 00:00: [place] 00 Medical [facility] Sinus Sinus Disease Active Univers tachycardi tachycardi 9-14 it y of a a 00:00: [place] 00 [facility] Insomnia Insomnia Disease Active Unive rs 3-27 ity of 00:00: [place] 00 [facility] Vitamin D Vitamin D Disease Active Overview: Univers deficiency deficiency 8-19 Formattin ity of 00:00: g of this [place] 00 note Medical might be Branch different from the original. 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 Claudy wolf Sinusitis Sinusitis Problem Active [facility] [...] l of [place] hydrocod DA Active U 2019-1 [facility] one -16 [facility] [place] fluconaz DA Active U 2020-1 [facility] ole -16 [facility] 00:00: [facility] 00 [facility] [place] tramadol DA Active U 2020-1 [facility] 1-16 [facility] 00:00: [facility] 00 [facility] [place] Sulfa DA Active U ITCHING 2019- [facility] (Sulfona -16 Woman's mide 00:00: Hospita Antibiot 00 l of ics) [place] morphine DA Active U SHORTNESS OF 2019- HC A BREATH -16 Woman's 00:00: [facility]ospita 00 l of [place] hydrocod DA Active U ITCHING 2020-1 [facility] one -16 Woman's 00:00: [facility] 00 [facility] [place] fluconaz DA Active U HIVES 2020-1 [facility] ole 1-16 Woman's 00:00: [facility] 00 [facility] [place] tramadol DA Active U ITCHY 2019-1 [facility] 1-16 Woman's 00:00: [facility] 00 l [facility] [place] adhesive DA Active MO 2017-0 [facility] 4-20 Woman's 00:00: [facility] 00 l of [place] adhesive DA Active MO HIVES 2017-0 [facility] 4-20 Woman's 00:00: [facility] 00 [place] Sulfa DA Active [place] 2017-0 [facility] (Sulfona 4-18 Woman's mide 00:00: Hospita Antibiot 00 l of ics) [place] morphine DA Active SV 2017-0 [facility] 4-18 Woman's 00:00: [facility] 00 [place] hydrocod DA Active [place] 2017-0 [facility] one 4-18 Woman's 00:00: [facility] 00 [place] tramadol DA Active [place] 2016-0 [facility] 4-18 Woman's 00:00: [facility] 00 [place] Sulfa DA Active [place] ITCHING 2016-0 [facility] (Sulfona 4-18 Woman's mide 00:00: Hospita Antibiot 00 l of ics) [place] morphine DA Active SV SHORTNESS OF 2016- HC A BREATH 4-18 Woman's 00:00: [facility]ospita 00 l [place] hydrocod DA Active [place] ITCHING 2016-0 [facility] one 4-18 Woman's 00:00: [facility]ospita 00 [place] tramadol DA Active [place] ITCHING 0 [facility] 4-18 Woman's 00:00: [facility]ospita 00 [facility] [place] Sulfa Propensi Active Itching Univers (Sulfona ty to 3-27 ity of mide adverse 00:00: [place] Antibiot reaction 00 Medica l ics) s Branch SULFA Drug Active ITCHING Univers (SULFONA Class 3-27 ity of MIDE 00:00: [place] ANTIBIOT 00 Medical ICS) Branch Adhesive Propensi Active Hives 0 Univer s ty to 2-27 ity of adverse 00:00: [place] reaction 00 Medical s Branch ADHESIVE Drug Active Hives 0 Univers Class 2-27 ity of 00:00: [place] 00 Medical Branch TRAMADOL DRUG Active ITCHING 0 Univers [...] Medical s Branch MORPHINE DRUG Active ITCHING 2010-0 Univers INGREDI 8-24 ity of 00:00: Medical Branch Morphine Propensi Active Shortness of Univers ty to Breath 8-24 ity of adverse 00:00: [place] reaction Medical s Branch Hydrocod Allergy Active Hives [...] Date Stop Date Quantity Comments Source History SDOR University o f Alcohol Frequency [facility] edical Branch History [facility] o f Alcohol Std [place] [facility] Drinks Branch History [facility] o f Alcohol Binge [facility] [place] Alcohol intake 2021-10-14 2021-10-14 .14 /d University of 00:00:00 00:00:00 [facility] Exposure to 2021-09-28 2021-10-08 Not sure [facility] SARS-CoV-2 00:00:00 09:53:00 [facility] (event) [place] Tobacco use and 2014-07-15 2014-07-15 Smokeless tobacco Un iversity of exposure 00:00:00 00:00:00 non-user [facility] Alcohol Comment 2014-07-15 2014-07-15 social Universit y of 00:00:00 00:00:00 [facility] Sex [birth year] At [birth year] Universit y of 00:00:00 00:00:00 [facility] Smoking Status Start Date Stop Date Source Never smoked tobacco [facility] Medications Ordered Filled Start Stop Current Ordering Indication Dosage Frequency Signature Comments Components Source Medication Medication Date Date Medication? Clinician (SIG) Name Name pantoprazol Yes Univer s e 40 mg EC 6-06 ity of tablet 00:00: [place] [facility] [place] pantoprazol Yes Univer s e 40 mg EC 6-06 ity of tablet 00:00: [place] [id number] Medical [place] pantoprazol Yes Univer s e 40 mg EC 6-06 ity of tablet 00:00: [place] 00 Medical Branch pantoprazol 2021-0 Yes Univer s e 40 mg EC 6-06 ity of tablet 00:00: [place] [facility] metoprolol 2021-0 Yes 12.5mg 12.5 mg. U nivers succinate 3-17 ity of XL 50 mg 24 00:00: [place] hr tablet Medical Branch metoprolol 2021-0 Yes 12.5mg 12.5 mg. U nivers succinate 3-17 ity of XL 50 mg 24 00:00: [place] hr tablet Medical Branch metoprolol 2021-0 Yes 12.5mg 12.5 mg. U nivers succinate 3-17 ity of XL 50 mg 24 00:00: [place] hr tablet Medical Branch metoprolol 2021-0 Yes 12.5mg 12.5 mg. U nivers succinate 3-17 ity of XL 50 mg 24 00:00: [place] hr tablet 00 Medical Branch WEGOVY 2.4 2021-0 Yes [...] SC 00:00: [place] injection 00 Medical Branch ketotifen 2021- No [id number] 1[drp] Place 1 Univers (ZADITOR) 01-01 9102 Drop in ity of 0.025 % 00:00: 00:00 [place] (0.035 %) 00 :00 2 (two) Medical ophthalmic times Branch solution daily. ketotifen 2021- No [id number] 1[drp] Place 1 Univers (ZADITOR) 01-01 9102 Drop in ity of 0.025 % 00:00: 00:00 [place] (0.035 %) 00 :00 2 (two) Medical ophthalmic times Branch solution daily. T:SLIM X2 1-0 Yes Univers Crtg 8-05 ity of 00:00: [place] [facility] TRUSTEEL 2020-0 Yes Univers INFUSION 8-05 ity of SET 23" 00:00: [place] IS Medical Branch DEXCOM G6 2020-0 Yes Univers TRANSMITTER 8-05 ity of Mell 00:00: [place] [facility] DEXCOM G6 2020-0 Yes Univers SENSOR Mell 8-05 ity of 00:00: [place] [facility] T:SLIM X2 2020-0 Yes Univers Crtg 8-05 ity of 00:00: [place] [facility] TRUSTEEL 2020-0 Yes Univers INFUSION 8-05 ity of SET 23" 00:00: [facility] Medical Branch DEXCOM G6 2020-0 Yes Univers TRANSMITTER 8-05 ity of Mell 00:00: [place] [facility] DEXCOM G6 2020- Yes Univers SENSOR Mell 8-05 ity of 00:00: [place] [facility] T:SLIM X2 2020-0 Yes Univers Crtg 8-05 ity of 00:00: [place] [facility] 2020-0 Yes Univers INFUSION 8-05 ity of SET 23" 00:00: [facility] Medical Branch DEXCOM G6 2020-0 Yes Univers TRANSMITTER 8-05 ity of Mell 00:00: Medical Branch DEXCOM G6 2020- Yes Univers SENSOR Mell 8-05 ity of 00:00: [place] [facility] T:SLIM X2 2020-0 Yes Univers Crtg 8-05 ity of 00:00: Medical Branch [facility] 2020-0 Yes Univers INFUSION 8-05 ity of SET 23" 00:00: [facility] Medical Branch DEXCOM G6 2020-0 Yes Univers TRANSMITTER 8-05 ity of Mell 00:00: [place] [facility] DEXCOM G6 2020-0 Yes Univers SENSOR Emll 8-05 ity of 00:00: [place] [facility] LYUMJEV 2020-0 Yes Univers U-100 7-20 ity of INSULIN 100 00:00: [place] unit/mL 00 Medical [facility] LYUMJEV 2020-0 Yes Univers U-100 7-20 ity of INSULIN 100 00:00: [place] unit/mL 00 Medical [facility] LYUMJEV 0 Yes Univers U-100 7-20 ity of INSULIN 100 00:00: [place] unit/mL 00 [facility] LYUMJEV 0 Yes Univers U-100 7-20 ity of INSULIN 100 00:00: [place] unit/mL 00 [facility] fluticasone 2020-0 Yes [id number] 1 spray Univers propionate 2-07 each ity of 50 00:00: nostril [place] mcg/actuati 00 twice a Medic al on nasal day for 5 Branch spray days then daily fluticasone 0 Yes [id number] 1 spray Univers propionate 2-07 each ity of 50 00:00: nostril [place] mcg/actuati 00 twice a Medic al on nasal day for 5 Branch spray days then daily fluticasone 0 Yes [id number] 1 spray Univers propionate 2-07 each ity of 50 00:00: nostril [place] mcg/actuati 00 twice a Medic al on nasal day for 5 Branch spray days then daily fluticasone 0 Yes [id number] 1 spray Univers propionate 2-07 each ity of 50 00:00: nostril [place] mcg/actuati 00 twice a Medic al on nasal day for 5 Branch spray days then daily flash 2019-0 Yes [id number] 1{each} 1 Each Un leeann glucose 4-15 every 14 ity of sensor 00:00: (fourteen) [place] (FREESTYLE 00 days. Use Medi carlos JARET 14 as Branch DAY SENSOR) directed Kit with reader. flash 2019- Yes [id number] 1{each} 1 Each Un leeann glucose 4-15 every 14 ity of sensor 00:00: (fourteen) [place] (FREESTYLE 00 days. Use Medi carlos JARET 14 as Branch DAY SENSOR) directed Kit with reader. flash 2019-0 Yes [id number] 1{each} 1 Each Un leeann glucose 4-15 every 14 ity of sensor 00:00: (fourteen) [place] (FREESTYLE 00 days. Use Medi carlos AJRET 14 as Branch DAY SENSOR) directed Kit with reader. flash 2019-0 Yes [id number] 1{each} 1 Each Un leeann glucose 4-15 [...] mg tablet mg tablet da Medical [facility] DEXCOM G6 DEXCOM G6 No DEXCOM [address] CGM CGM CGM Family Practic e Dexcom G6 Dexcom G6 No [address] Sensor Sensor Sensor Family device Take device Take device Practic 3 devices 3 devices Take 3 e every month every month devices by miscell. by miscell. every route. route. month by miscell. route. Dexcom G6 Dexcom G6 No Dex[address] Transmitter Transmitter Transmitte Family device device r device Practic e Lyumalbert Lyumalbert No Lyumalbert Villag e KwikPen David BluntikPen Family U-100 U-100 U-100 Practic Insulin 100 Insulin 100 Insulin e unit/mL unit/mL 100 subcutaneou subcutaneou unit/mL s Give s Give subcutaneo before before us Give meals in meals in before case of case of meals in pump pump case of failure failure pump using ICR using ICR failure 1:5; CF 1:5; CF using ICR 1:30: TDD 1:30: TDD 1:5; CF 50 50 1:30: TDD 50 Lyumjev Lyumgayathriv No Lyumjevenita Villag e U-100 U-100 U-100 Family Insulin 100 Insulin 100 Insulin Practic unit/mL unit/mL 100 e subcutaneou subcutaneou unit/mL s solution s solution subcutaneo Use daily Use daily us with with solution insulin insulin Use daily pump: TDD pump: TDD with 70 70 insulin pump: TDD 70 nitroglycer nitroglycer No nitroglyce Village in 0.4 mg in 0.4 mg rin 0.4 mg [facility] sublingual sublingual sublingual Practic tablet tablet tablet e pantoprazol pantoprazol No pantoprazo [place] e 40 mg e 40 mg le 40 mg Famil y tablet,lucy tablet,lucy tablet,del Practic yed release yed release ayed e release t:slim X2 t:slim X2 No t:slim X2 Village subcutaneou subcutaneou subcutaneo Family s cartridge s cartridge us P ractic cartridge e Tresiba Tresiba No Tresiba Villag e FlexTouch FlexTouch FlexTouch Family U-200 U-200 U-200 Practic insulin 200 insulin 200 insulin e unit/mL (3 unit/mL (3 200 mL) mL) unit/mL (3 subcutaneou subcutaneou mL) s pen GIve s pen GIve subcutaneo 28 units in 28 units in us pen AM in case AM in case GIve 28 of pump of pump units in failure and failure and AM in case increase as increase as of pump directed: directed: failure TDD 50 TDD 50 and increase as directed: TDD 50 TruSteel TruSteel No TruSteel Luan gillian Infusion [...] Immunizations Ordered Filled Immunization Date Status Comments [facility] e Immunization Name Name Influenza Virus 2021-01-19 Completed Universit y of Vaccine Quad IM 3+ 00:00:00 [facility] Influenza Virus 2021-01-19 Completed Universit y of Vaccine Quad IM 3+ 00:00:00 [facility] Influenza Virus 2021-01-19 Completed Universit y of Vaccine Quad IM 3+ 00:00:00 [facility] Influenza Virus 2021-01-19 Completed Universit y of Vaccine Quad IM 3+ 00:00:00 [facility] COVID-19, mRNA, COVID-19, mRNA, 2020-09-25 Completed Vill age Family LNP-S, PF, 30 LNP-S, PF, 30 00:00:00 Practice mcg/0.3 mL dose mcg/0.3 mL dose ([employer]) ([employer]) SARS-COV-2 COVID-19 2020-06-02 Completed Unive rsity of PFIZER VACCINE 00:00:00 [facility] SARS-COV-2 COVID-19 2020-06-02 Completed Unive rsity of PFIZER VACCINE 00:00:00 [facility] SARS-COV-2 COVID-19 2020-06-02 Completed Unive rsity of PFIZER VACCINE 00:00:00 [facility] SARS-COV-2 COVID-19 2020-06-02 Completed Unive rsity of PFIZER VACCINE 00:00:00 [facility] COVID-19 COVID-19 2020-05-22 Completed [facility] (SARS-COV-2) (SARS-COV-2) 00:00:00 Practice vaccine, vaccine, unspecified unspecified SARS-COV-2 COVID-19 2020-05-12 Completed Unive rsity of PFIZER VACCINE 00:00:00 [facility] SARS-COV-2 COVID-19 2020-05-12 Completed Unive rsity of PFIZER VACCINE 00:00:00 [facility] SARS-COV-2 COVID-19 2020-05-12 Completed Unive rsity of PFIZER VACCINE 00:00:00 [facility] SARS-COV-2 COVID-19 2020-05-12 Completed Unive rsity of PFIZER VACCINE 00:00:00 [facility] influenza, influenza, 2020-01-20 Completed [facility] injectable, injectable, 00:00:00 Practice quadrivalent quadrivalent Influenza Virus 2018-01-29 Completed Universit y of Vaccine Quad IM 3+ 00:00:00 [facility] Influenza Virus 2018-01-29 Completed Universit y of Vaccine Quad IM 3+ 00:00:00 [facility] Influenza Virus 2018-01-29 Completed Universit y of Vaccine Quad IM 3+ 00:00:00 [facility] Influenza Virus 2018-01-29 Completed Universit y of Vaccine Quad IM 3+ 00:00:00 [facility] TDAP 2016-07-20 Completed University 00:00:00 [facility] TDAP 2016-07-20 Completed [facility] [facility] [facility] 2016-07-20 Completed University 00:00:00 [facility] tetanus toxoid, tetanus toxoid, 2015-04-21 Completed Vill age Family adsorbed adsorbed 00:00:00 Practice Vital Signs Vital Name Observation Time Observation Value Comments Source Systolic blood 2021-10-08 15:01:00 106 mm[Hg] Univer sity of pressure [facility] Diastolic blood 2021-10-08 15:01:00 72 mm[Hg] Unive rsity of pressure [facility] Heart rate 2021-10-08 15:01:00 90 /min Universi ty [facility] Body temperature 2021-10-08 15:01:00 37.06 Urmila Univ ersity of [facility] Body height 2021-10-08 15:01:00 160 cm Universi ty [facility] Body weight 2021-10-08 15:01:00 66.134 kg Universi [facility] BMI 2021-10-08 15:01:00 25.83 kg/m2 [facility] Oxygen saturation in 2021-10-08 15:01:00 100 /min University of Arterial blood by [facility] Pulse oximetry Branch BP Diastolic 2021-10-03 00:00:00 64 mm[Hg] [facility] Height 2021-10-03 00:00:00 63 [in_i] [facility] BMI (Body Mass 2021-10-03 00:00:00 25.7 kg/m2 Vill[facility] e Family Index) Practice BP Systolic 2021-10-03 00:00:00 94 mm[Hg] [facility] Body Weight 2021-10-03 00:00:00 145 [lb_av] [facility] BP Diastolic 2021-08-14 00:00:00 60 mm[Hg] [facility] Height 2021-08-14 00:00:00 63 [in_i] [facility] BMI (Body Mass 2021-08-14 00:00:00 27.8 kg/m2 Vill[facility] e Family Index) Practice BP Systolic 2021-08-14 00:00:00 91 mm[Hg] [facility] Body Weight 2021-08-14 00:00:00 156.8 [lb_av] [facility] BP Diastolic 2021-05-16 00:00:00 81 mm[Hg] Village [...] Practice BP Systolic 2020-10-11 00:00:00 113 mm[Hg] [facility] Body Weight 2020-10-11 00:00:00 172.4 [lb_av] [facility] BP Diastolic 2020-07-14 00:00:00 77 mm[Hg] [facility] Height 2020-07-14 00:00:00 63 [in_i] [facility] BMI (Body Mass 2020-07-14 00:00:00 32.8 kg/m2 [facility] Family Index) Practice BP Systolic 2020-07-14 00:00:00 108 mm[Hg] [facility] Body Weight 2020-07-14 00:00:00 185 [lb_av] [facility] BP Diastolic 2020-04-11 00:00:00 68 mm[Hg] [facility] Height 2020-04-11 00:00:00 63 [in_i] [facility] BMI (Body Mass 2020-04-11 00:00:00 31.4 kg/m2 [facility] Family Index) Practice BP Systolic 2020-04-11 00:00:00 118 mm[Hg] [facility] Body Weight 2020-04-11 00:00:00 177 [lb_av] [facility] BP Diastolic 2019-02-10 00:00:00 75 mm[Hg] [facility] Height 2019-02-10 00:00:00 63 [in_i] [facility] BMI (Body Mass 2019-02-10 00:00:00 25[facility]7 [facility] BP Systolic 2019-02-10 00:00:00 120 mm[Hg] [facility] Body Weight 2019-02-10 00:00:00 145.1 [lb_av] [facility] Procedures Procedure Date / Time Performing Clinician Source Performed PHYSICIAN ORDERS 2021-10-24 05:01:00 Doctor Unassigned, No Unive [facility] Name Medical Branch Hysterectomy (Total) 2019-06-20 00:00:[address] [facility] [address], sinuses, w/o 2019-02-10 00:00:00 Carlito molina contrast Group Laparoscopic Sleeve 2015-09-20 00:00:00 [facility] Sinus Surgery [facility] Plan of Care Planned Activity Planned Date Details Comments Source Diagnostic Test Pending 2021-10-03 glucose, Vill age Family 00:00:00 fingerstick, Practice blood [code = glucose, fingerstick, blood] Future Appointment 2021-12-03 [facility] 00:00:[id number]; [address], [place] [address] Instructions [facility] Encounters Start End Encounter Admission Attending Care Care Encounter Source Date/Time Date/Time Type Type Clinicians Facility Department ID 2021-11-13 2021-11-13 Outpatient Que_T VFP VFP [id number] Village 02:41:00 02:41:00 [id number] Family Practic e 2021-10-26 2021-10-26 Outpatient Bui_Q_WAGDN VFP VFP [id number] [facility] [place] 09:19:00 09:19:00 U [id number] Family Practic e 2021-10-24 2021-10-24 [employer] Alie [facility] [id number] Univers 08:30:00 08:45:00 Visit Gabriela Allred [id number] ity [facility] [id number] Carrie YANES [id number] Nv [address] 2021-10-24 2021-10-24 Outpatient R [facility] [id number] Univers 08:30:00 08:30:00 [id number] ity of [facility] 2021-10-24 2021-10-24 Outpatient R CHALINO [facility] [id number] Univers 08:30:00 08:30:00 GABRIELA ity [facility] 2021-10-24 2021-10-24 Orders Doctor SANCHEZ [id number] Univers 00:00:00 00:00:00 Only Unassigned, MADHU [id number] ity of [place] [facility] [id number] Rod as [id number] [address] 2021-10-11 2021-10-11 [facility] [id number] Univers 15:29:12 23:59:00 [facility] 2021-10-08 2021-10-08 Office Keshav [facility] [id number] Univers 10:00:00 10:33:16 Visit [facility] [id number] it y of [place] [id number] Rod as EDMAR?BLEA [phone] Nv luci [address] MEDICAL OFFICE BUILDING 2021-10-08 2021-10-08 [facility] [id number] Univers 10:00:00 10:33:16 [facility] 2021-10-03 2021-10-03 Outpatient Daniel_T VFP VFP [id number] [facility] [place] 05:39:00 05:39:00 [id number] Family Practic e 2021-10-03 2021-10-03 Claudy VFP [place] - [id number] V illage 00:00:00 00:00:00 [facility] Jaime Barros - Practi edith VELASCO: [id number] VM_HOU_Shaalonzo e [facility], [address], [place] [address] , Ph. 2021-09-05 2021-09-05 Outpatient Daniel_T VFP VFP [id number] [facility] [place] 04:42:00 04:42:00 [id number] Family Practic e 2021-09-05 2021-09-05 Outpatient Daniel_T VFP VFP [id number] [facility] [place] 04:42:00 04:42:00 [id number] Family Practic e 2021-09-04 2021-09-04 Outpatient Bui_Q_WAGDN VFP VFP [id number] [facility] [place] 11:36:00 11:36:00 U [id number] Family Practic e 2021-08-14 2021-08-14 Outpatient Daniel_T VFP VFP [id number] [facility] [place] 12:32:00 12:32:00 [id number] Family Practic e 2021-08-14 2021-08-14 Claudy VFP [place] - [id number] V illage 00:00:00 00:00:00 [facility] Prackalyan sharma MD: [id number] ALPHONSO_NICOLAS_[place] e [facility], [address], [place] [address] , Ph. 2021-07-02 2021-07-02 Outpatient Daniel_T VFP VFP [id number] [facility] [place] 02:19:00 02:19:00 [id number] Family Practic e 2021-05-31 2021-05-31 Outpatient Daniel_T VFP VFP [id number] [facility] [facility] [place] 03:30:00 03:30:00 [id number] Family Practic e 2021-05-17 2021-05-17 Outpatient Daniel_T VFP VFP [id number] [facility] [place] 11:37:00 11:37:00 [id number] Family Practic e 2021-05-17 2021-05-17 Outpatient Bui_Q_WAGDN VFP VFP 114 1030-20 [facility] [place] 11:37:00 11:37:00 U [id number] Family Practic e 2021-05-16 2021-05-16 Outpatient Daniel_T VFP VFP [id number] [facility] [place] 05:07:00 05:07:00 [id number] Family Practic e 2021-05-16 2021-05-16 Claudy VFP [place] - [id number] V ill[place] 00:00:00 00:00:00 [facility] - Prackalyan sharma MD: [id number] ALPHONSO_NICOLAS_Garland e [facility] [address], [place] [address] , Ph. 2021-03-02 2021-03-02 Outpatient Daniel_T VFP VFP [id number] 0-20 [facility] [place] 09:46:00 09:46:00 [id number] Family Practic e 2020-10-13 2020-10-13 Outpatient Daniel_T VFP VFP [id number] 0-20 [facility] [place] 12:26:00 12:26:00 [id number] Family Practic e 2020-10-13 2020-10-13 Outpatient Daniel_T VFP VFP [id number] 0-20 [facility] [place] 12:26:00 12:26:00 [id number] Family Practic e 2020-10-13 2020-10-13 Outpatient Bui_Q_WAGDN VFP VFP 114 0-20 [facility] [place] 12:26:00 12:26:00 U [id number] Family Practic e 2020-10-11 2020-10-11 Outpatient Daniel_T VFP VFP [id number] [facility] [place] 09:55:00 09:55:00 [id number] Family Practic e 2020-10-11 2020-10-11 Claudy VFP [place] - [id number] V illage 00:00:00 00:00:00 [facility] Jaime - Garth sharma MD: [id number] VM_HOU_Shaalonzo e Shadow [facility], [address], [place] [address] , Ph. 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 Alie Layne [facility] 1.2.840.114 [id number] 14:03:59 14:18:59 Visit Lab Main [place] 350.1.13.10 [place] 4.2.7.2.686 Profshahla [id number] 2020-07-19 2020-07-19 Outpatient Daniel_T VFP VFP [id number] [facility] [place] 06:36:00 06:36:00 [id number] Family Practic e 2020-07-19 2020-07-19 Outpatient Bui_Q_WAG VFP VFP [id number] [facility] [place] 06:36:00 06:36:00 [id number] Family Practic e 2020-07-14 2020-07-14 Outpatient Daniel_T VFP VFP [id number] [facility] [place] 11:54:00 11:54:00 [id number] Family Practic e 2020-07-14 2020-07-14 Outpatient Daniel_T VFP VFP [id number] [facility] [place] 11:54:00 11:54:00 [id number] Family Practic e 2020-07-14 2020-07-14 Claudy VFP [place] - [id number] V illage 00:00:00 00:00:00 [facility], Jaime - Garth sharma MD: [id number] VM_NICOLAS_Garland e Shadow [address], [address], [place] [address] , Ph. 2020-05-28 2020-05-28 Urgent Provider, [facility] [id number] 17:04:02 17:24:02 Care [facility] [id number] Care [place] 4.2.7.2.686 Professio [id number] nal 044 Office Building One 2020-05-15 2020-05-15 Boilermaker Ship Xi, [facility] 1.2.840.114 [id number] 15:04:50 15:19:50 Visit Lab Main [place] 350.1.13.10 [place] 4.2.7.2.686 [facility] [id number] [facility] 353 Building 2020-05-15 2020-05-15 Orders Doctor DANIEL 1.2.840.114 [id number] 00:00:00 00:00:00 Only Unassigned, MADHU 350.1.13.10 [place] [facility] 4.2.7.2.686 [id number] [id number] 2020-05-05 2020-05-05 Laboratory Only, [facility] 1.2.840.114 [id number] 14:37:30 14:52:30 Only Test [place] 350.1.13.10 [place] 4.2.7.2.686 [place] [id number] 353 2020-04-15 2020-04-15 Outpatient Daniel_T VFP VFP [id number] 0-20 [facility] [place] 01:55:00 01:55:00 [id number] Family Practic e 2020-04-15 2020-04-15 Outpatient Bui_Q_WAG VFP VFP [id number] [facility] [place] 01:55:00 01:55:00 [id number] Family Practic e 2020-04-11 2020-04-11 Outpatient Danijhonathan_T VFP VFP [id number] 0-20 [facility] [place] 11:57:00 11:57:00 [id number] Family Practic e 2020-04-11 2020-04-11 Claudy VFP [place] - [id number] V illage 00:00:00 00:00:00 [facility] Medical - Prackalyan sharma MD: [id number] VM_HOU_Dani e Shadow [facility], [facility] [address], [place] [address] , Ph. 2020-04-10 2020-04-10 Outpatient Que_T VFP VFP [id number] 0-20 [facility] [place] 05:10:00 05:10:00 [id number] Family Practic e 2020-04-04 2020-04-04 Outpatient Bui_Q_WAG VFP VFP [id number] [facility] [place] 11:25:00 11:25:00 [id number] Family Practic e 2020-03-07 2020-03-06 Inpatient JHONATHAN Scott, [facility] [id number] [facility] 11:00:00 11:00:00 Mikki [address] 2020-02-01 2020-02-01 Boilermaker Ship Alie Layne [facility] 1.2.840.114 [id number] 08:33:57 08:48:57 Visit Lab Main [place] 350.1.13.10 [place] 4.2.7.2.686 Professio [id number] [facility] 353 Building 2020-02-01 2020-02-01 Orders Doctor DANIEL 1.2.840.114 [id number] 00:00:00 00:00:00 Only Unassigned, MADHU 350.1.13.10 [place] [facility] 4.2.7.2.686 [id number] [id number] 2020-01-13 2020-01-13 Nurse Esperanza [facility] 1.2.840.114 [id number] 14:54:12 15:28:24 Visit [facility] 350.1.13.10 [place] 4.2.7.2.686 Professio [id number] nal 044 Office Building One 2020-01-03 2020-01-03 Office EVELYNE MataMB 1.2.840.114 [id number] 13:16:48 14:12:27 Visit [employer] 350.1.13.10 [place] 4.2.7.2.686 Nirmala [id number] nal 044 Office Building One 2019-12-29 2019-12-29 [facility] JACK [id number] [facility] 12:00:00 12:00:00 Jeanine 67 [facility] 2019-11-04 2019-11-04 Outpatient Holste, [facility] [id number] [facility] 07:00:00 07:00:00 Jeanine 70 [facility] 2019-10-28 2019-10-28 [facility] JACK [id number] [facility] 12:00:00 12:00:00 Jeanine 90 [facility] 2019-02-10 2019-02-10 Palivela [facility] [place] - [id number] [place] 00:00:00 00:00:00 MD Nathan: [address] [place], [place] [address], Otolaryngol [place], [place] [address] , Ph. Results Test Description Test Time Test Comments Results Result Comments Source Glucose [Mass/volume] in Capillary blood 2021-10-03 16:22:01 Test Item Value Reference Range Interpretation Comme nts Blood Glucose: mg/dl (test code = Blood Glucose: mg/dl) 107 [facility] [Mass/volume] in Capillary [id number] 16:22:01 Test Item Value Reference Range Interpretation Comments Blood Glucose: mg/dl (test code = Blood 107 Glucose: mg/dl) [facility] [id number] 10:43:27 Test Item Value Reference Range Interpretation Comments Hemoglobin A1C Fingerstick: (test code 7.0 = Hemoglobin A1C Fingerstick:) [facility] Practice[facility]ucose [Mass/volume] in Capillary [id number] 10:39:53 Test Item Value Reference Range Interpretation Comments Blood Glucose: mg/dl (test code = Blood 256 Glucose: mg/dl) [facility] [id number] 15:03:04 Test Item Value Reference Range Interpretation Comments Hemoglobin A1C Fingerstick: (test code 8.1 = Hemoglobin A1C Fingerstick:) [facility] [Mass/volume] in Capillary [id number] 15:02:56 Test Item Value Reference Range Interpretation Comments Blood Glucose: mg/dl (test code = Blood 136 Glucose: mg/dl) [facility],[id number] 16:42:00 Test Item Value Reference Range Interpretation Comments ENDOMETRIUM,BIOPSY (test code = ENDOMETBX) RUN DATE: 03/09/20 [facility] PAGE 1 RUN TIME: 175 Specimen Inquiry RUN USER: INTERFACE PATIENT: SIDNEY ROBERTSON LOC: LouieCHANDA U #: [id number] AGE/SX: ROOM: [facility] RE03/07/20REG DR: Mikki Scott MD : 86 BED: A DIS: 03/08/20 STATUS: DIS Jack TLOC: SPEC #: [id number] RECD: 03/08/20 STATUS: CHELSEA HAWKINS #: [id number] EARLE: 03/08/20- SUBM DR: Mikki Scott MD ENTERED: 03/08/20 SP TYPE: ENDOMETBX OTHR DR: ORDERED: LEVEL IV CODES: O10831 - ENDOMETRIUM, NO PROCEDURES: LEVEL IV (Incomplete) [...] - no significant pathologic alteration CPT code(s): 24449 x6, 37576 ls/wpd CONTINUED ON NEXT PAGE RUN DATE: 03/09/20 [facility] PAGE 2 RUN TIME: 1751 Specimen Inquiry RUN USER: INTERFACE SPEC #: [id number] PATIENT: SIDNEY ROBERTSON #[id number] (Continued) GROSS DESCRIPTION ANATOMIC SOURCE OF TISSUE [...] with fimbriae. Sectioning reveals a pinpoint lumen. 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 as follows: CONTINUED ON NEXT PAGE RUN DATE: 03/09/20 [facility] PAGE 3 RUN TIME: 1751 Specimen Inquiry RUN USER: INTERFACE SPEC #: [id number] PATIENT: SIDNEY ROBERTSON #[id number] (Continued) GROSS DESCRIPTION (Continued) G1 - serosal adhesions and fatty tissue G2 - anterior cervix G3 - posterior cervix G4 - anterior endometrium G5 - posterior endometrium G6 - right fallopian tube G7 - left fallopian tube michelle 03/08/20 Signed Mariam Aparicio MD 03/09/20 1642 END OF REPORT CBC W/AUTO [id number] 06:58:00 Test Item Value Reference Range Interpretation [...] REQUIRED (test NORMAL NORMAL code = PLTMR) [id number] 06:50:00 Test Item Value Reference Range Interpretation Comments GLUBED (test code = GLUBED) 130 mg/dL 65-110 H [id number] 23:39:00 Test Item Value Reference Range Interpretation Comments GLUBED (test code = GLUBED) 266 mg/dL 65-110 H [id number] 17:06:00 Test Item Value Reference Range Interpretation Comments GLUBED (test code = GLUBED) 219 mg/dL 65-110 H [id number] 14:17:00 Test Item Value Reference Range Interpretation Comments GLUBED (test code = GLUBED) 135 mg/dL 65-110 H [id number] 09:59:00 Test Item Value Reference Range Interpretation Comments GLUBED (test code = GLUBED) 110 mg/dL 65-110 N AG HEPATITIS B [id number] 14:47:00 Test Item Value Reference Range Interpretation Comments AG HEPATITIS B SURFACE (test code NONREACTIVE NONREACTIVE = HBSAG) IS CONSENT FORM SIGNED FOR HIV TESTING? YAB HEPATITIS C [id number] 14:47:00 Test Item Value Reference Range Interpretation Comments AB HEPATITIS C (test code = NONREACTIVE NONREACTIVE HCVAB) SIGNAL TO CUTOFF (test code = 0.09 <0.80 N CUTOFF) IS CONSENT FORM SIGNED FOR HIV TESTING? YAB HIV 1 14:47:00 Test Item Value Reference Range Interpretation Comments AB HIV 1 2 (test NONREACTIVE NONREACTIVE [facility] code = [id number]) 4th Gen HIV Ag/Ab Combo Screen IS CONSENT FORM SIGNED FOR HIV TESTING? YAG HEPATITIS B [id number] 14:15:00 Test Item Value Reference Range Interpretation Comments AG HEPATITIS B SURFACE (test code NONREACTIVE NONREACTIVE = HBSAG) IS CONSENT FORM SIGNED FOR HIV TESTING? YAB HEPATITIS C [id number] 14:15:00 Test Item Value Reference Range Interpretation Comments AB HEPATITIS C (test code = HCVAB) NONREACTIVE SIGNAL TO CUTOFF (test code = CUTOFF) <0.80 IS CONSENT FORM SIGNED FOR HIV TESTING? YAB HIV 1 14:15:00 Test Item Value Reference Range Interpretation Comments AB HIV 1 2 (test code = MAE40TL) NONREACTIVE IS CONSENT FORM SIGNED FOR HIV TESTING? YURINALYSIS [id number] 14:14:00 Test Item Value Reference Range Interpretation [...] URINE SAMPLE: CLEAN CATCHCOVID 19 Asymptomatic IH [id number] 13:50:00 Test Item Value Reference Range Interpretation Comments COVID 19 NEGATIVE NEGATIVE This test has b een Asymptomatic IH AG authorize d only for the (test code = detection ofpro teins from COVNONPUIAG) SARS-CoV-2, not for any other viruses orpathogens. Ne gative results should be treated as presumptive andconfirmed [...] and/o r diagnosis of CO VID-19 under Cexayri75 4(b)(1) of the Act, 21 U.S .C. 360bbb-3(b)(1), unless theauthorizatio n is terminated or r evoked sooner. HCG SERUM [id number] 13:43:00 Test Item Value Reference Range Interpretation Comments HCG SERUM QUAL (test code = HCGQL) NEGATIVE CBC W/AUTO [id number] 13:22:00 Test Item Value Reference Range Interpretation [...] NORMAL NORMAL code = PLTMR) - DUP AB/PEL/SC/[id number] 07:44:00 Patient Name: SIDNEY ROBERTSON Unit No: [id number] EXAMS: CPT CODE: [id number] DUP AB/PEL/SC/LTD 23794 CLINICAL HISTORY: Pelvic pain. COMPARISON: August 21, [...] x 15 x 18 mm. Blood flow isidentified in the right ovary. The left ovary measures 22 x 19 x 20 mm and has normal sonographic appearance. Blood flow is identified in the left ovary. No extraovarian mass is noted. There is no significant free fluid in the pelvis. IMPRESSION: Unremarkable pelvic sonogram. at 0744 Reported and signed by: Deion Burr MD CC: Jeanine Palm MD Technologist: Janelle Sam RDMS Probe: Trnscrbd D/ (0744) t.SDR.YOS Orig Margot nt D/T: S: 11/04/2019 (0747) [facility] NAME: SIDNEY ROBERTSON Radiology Department PHYS: CIARA Jeanine Palm [address] : 1990 AGE: 29 SEX: F [place] [address] LOC: Louie.RAD PHONE #: [phone] EXAM DATE: 11/04/2019 STATUS: REG CLI FAX #: [phone] RAD NO: Page 1 Signed Report Patient Name: AMIE ROBERTSONJUAN F Cesar Unit No: [id number] EXAMS: CPT CODE: [id number] DUP AB/PEL/SC/LTD 21912 <Continued> [facility] NAME: SIDNEY ROBERTSON Radiology Department PHYS: Abram Jeanine Cummings [address] : 1990 AGE: 29 SEX: F [place] [address] LOC: F.RAD PHONE #: [phone] EXAM DATE: 11/04/2019 STATUS: REG CLI FAX #: [phone] RAD NO: Page 2 Signed Report- US PELVIS COMPLETE 2019-11-04 07:44:00 Patient Name: SIDNEY ROBERTSON Unit No: [id number] EXAMS: CPT CODE: [id number] US PELVIS COMPLETE 84996 CLINICAL HISTORY: Pelvic pain. COMPARISON: August 21, 2017 Real-time ultrasound examination of thepelvis was performed using transabdominal and endovaginal approach. Doppler evaluation of both ovaries was also performed. The uterus measures 7.4 x 3.6 x 5.6 cm in greatest dimensions with endometriummeasuring 8 mm in AP dimension. There is no evidence of uterine fibroid or other significant uterineabnormality. Changes related to are present in lower uterine segment. The right ovary measu res 27 x 18 x 23 mm and contains a hemorrhagic corpus luteum measuring 19 x 15 x 18 mm. Blood flow is identified in the right ovary. The left ovary measures 22 x 19 x 20 mm and has normal sonographic appearance. Blood flow is identified in the left ovary. No extraovarian mass is noted. There is no significant free fluid in the pelvis. IMPRESSION: Unremarkable pelvic sonogram. Electronically Signedby Deion Burr MD on 11/04/2019 at 0744 Reported and signed by: Deion Burr MD CC: Jeanine Palm MD Technologist: Janelle Sam RDMS Probe: Trnscrbd D/ (0744) t.SDR.YOS Orig Print D/T: S: 11/04/2019 (0747) [facility] NAME: SIDNEY ROBERTSON Radiology Department PHYS: Jeanine Wills [address] : 1990 AGE: 29 SEX: F [place], [place] [address] LOC: F.RAD PHONE #: [phone] EXAM DATE: 11/04/2019 STATUS: REG CLI FAX #: [phone] RAD NO: Page 1 Signed Report Patient Name: SIDNEY ROBERTSON Unit No: [id number] EXAMS: CPT CODE: [id number] US PELVIS COMPLETE 38564 <Continued> [facility] NAME: SIDNEY ROBERTSON Radiology Department PHYS: CIARA Jeanine Palm [address] : 1990 AGE: 29 SEX: Louie [place], [place] [address] LOC: Louie.RAD PHONE #: [phone] EXAM DATE: 11/04/2019 STATUS: REG CLI FAX #: [phone] RAD NO: Page 2 Signed Report- US TRANSVAGINAL W/[id number] 07:44:00 Patient Name: SIDNEY ROBERTSON Unit No: [id number] EXAMS: CPT CODE: [id number] US TRANSVAGINAL W/PELVIS 80453 CLINICAL HISTORY: Pelvic pain. COMPARISON: August 21, 2017 Real-time ultrasound examination of the pelvis was performed using transabdominal and endovaginal approach. Doppler evaluation of bothovaries was also performed. The uterus measures 7.4 [...] right ovary. The left ovary measures 22 x 19 x 20 mm and has normal sonographic appearance. Blood flow is identified in the left ovary. No extraovarian mass is noted. There is no significant free fluid in the pelvis. IMPRESSION: Unremarkable pelvic sonogram. at 0744 Reported and signed by: Deion Burr MD CC: Jeanine Palm MD Technologist: Janelle Sam RDMS Probe: [id number] Trnscrbd D/ (0744) Cha Orig Print D/T: S: 11/04/2019 (0747) [facility] NAME: SIDNEY ROBERTSON Radiology Department PHYS: Jeanine Wills [address] : 1990 AGE: 29 SEX: [place], [place] [address] LOC: F.RAD PHONE #: [phone] EXAM DATE: 11/04/2019 STATUS: REG CLI FAX #: [phone] RAD NO: Page 1 Signed Report Patient Name: SIDNEY ROBERTSON UnitNo: [id number] EXAMS: CPT CODE: [id number] US TRANSVAGINAL W/PELVIS 88734 <Continued> [facility] NAME: AILYNSIDNEY Cesar Radiology Department PHYS: Jeanine Wills [address] : 1990 AGE: 29 SEX: F [place], [place] [address] LOC: F.RAD PHONE #: [phone] EXAM DATE: 11/04/2019 STATUS: REG CLI FAX #: [phone] RAD NO: Page 2 Signed Report
[2021-11-29] MEDS ORDERED: NA CHLORIDE 0.9% 1,000 ML ONE (12:02)
[2021-11-29] MEDS ORDERED: ONDANSETRON 4 MG (ODT) TAB ONE (12:02)
[2021-11-29 12:31] LABS: Absolute Lymphocytes (CBC) 1.7 K/uL (0.7-4.9); Hematocrit 38.3 % (36.0-45.0); Lymphocytes % 29.6 % (15.3-44.8); MCV 92.3 fL (80-100); MPV 10.5 fL (7.6-11.3); RBC Red Blood Cell Count 4.15 M/uL (3.86-4.86)
[2021-11-29 12:41] LABS: Albumin 3.4 g/dL (3.4-5.0); Bilirubin Total 0.2 mg/dL (0.2-1.0); Potassium 3.9 mmol/L (3.5-5.1)
--- NOTE | 2021-11-29 13:18 | RAD REPORT ---
EXAM DESCRIPTION: CTAbdomen Pelvis W Contrast - 11/29/2021 12:58 pm CLINICAL HISTORY: Abdominal pain. LUQ abdominal pain COMPARISON: Abdomen Pelvis W Contrast dated 09/28/2021; Abdomen Pelvis W Contrast dated 09/23/2021; CT ABD PELVIS W CONTRAST dated 07/18/2008 TECHNIQUE: Biphasic CT imaging of the abdomen and pelvis was performed with 100 ml non-ionic IV cont rast. All CT scans are performed using dose optimization technique as appropriate and may include automated exposure control or mA/KV adjustment according to patient size. FINDINGS: The lung bases are clear.Postsurgical changes are present about the stomach. Cholecystecto my clips. The liver, spleen, pancreas, adrenal glands and kidneys are within normal limits. No bowel obstruction, free air, free fluid or abscess. Moderate retained stool throughout the colon. Appendectomy suspected. No evidence of significant lymphadenopathy. No suspicious bony findings. IMPRESSION: No acute intra-abdominal or pelvic finding. Moderate constipation.
[2021-11-29 13:42] LABS: Urine Blood Negative (Negative); Urine Glucose Negative (Negative); Urine Protein Negative (Negative); Urine Specific Gravity 1.015 (1.005-1.030); Urine pH 7.5 (5.0-7.0)
--- NOTE | 2021-11-29 14:21 | ER ---
Nurse's Notes [facility] Name: Lilibeth Sharif Age: 31 yrs Sex: Female : 1990 Arrival Date: 11/29/2021 Time: 11:34 Bed 17 Private MD: Diagnosis: Hyperglycemia, unspecified;Dehydration;Constipation, unspecified Presentation: 11/29 11:41 Chief complaint: Patient states: is a type one diabetic, has been having blood sugar iw spikes and abd tenderness. Coronavirus screen: At this time, the client does not indicate any symptoms associated with coronavirus-19. Ebola Screen: Patient negative for fever greater than or equal to 101.5 degrees Fahrenheit, and additional compatible Ebola Virus Disease symptoms Patient denies exposure to infectious person. Patient denies travel to an Ebola-affected area in the 21 days before illness onset. No symptoms or risks identified at this time. Initial Sepsis Screen: Does the patient meet any 2 criteria? No. Patient's initial sepsis screen is negative. Does the patient have a suspected source of infection? No. Patient's initial sepsis screen is negative. Risk Assessment: Do you want to hurt yourself or someone else? Patient reports no desire to harm self or others. Onset of symptoms was November 29, 2021. 11:41 Method Of Arrival: Ambulatory iw 11:41 Acuity: JAMISON 3 iw Triage Assessment: 11:49 General: Appears uncomfortable, Behavior is calm, cooperative, appropriate for age. ap3 Pain: Complains of pain in left upper quadrant and left lower quadrant Pain began gradually, 2-3 days ago. Neuro: Level of Consciousness is awake, alert, obeys commands, Oriented to person, place, time, situation, Appropriate for age Moves all extremities. Gait is steady, Speech is normal. Cardiovascular: Patient's skin is warm and dry. Respiratory: Airway is patent Respiratory effort is even, unlabored, Respiratory pattern is regular, symmetrical. GI: Reports nausea, vomiting. 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 - Social history:: Smoking status: Patient denies any tobacco usage or history of. Screenin:49 Abuse screen: Denies threats or abuse. Nutritional screening: No deficits noted. ap3 Tuberculosis screening: No symptoms or risk factors identified. Fall Risk None identified. Assessment: 13:08 Reassessment: No changes from previously documented assessment. Patient and/or family ap3 updated on plan of care and expected duration. Pain level reassessed. Patient is alert, oriented x 3, equal unlabored respirations, skin warm/dry/pink. Vital Signs: 11:50 BP 103 / 77; Pulse 65; Pulse Ox 99% ; ap3 13:09 BP 104 / 71; Pulse 60; Resp 18; Temp 97.7; Pulse Ox 100% ; Weight 65.77 kg; Height 5 ap3 ft. 5 in. (165.10 cm); 13:09 Body Mass Index 24.13 (65.77 kg, 165.10 cm) ap3 ED Course: 11:34 Patient arrived in ED. as 11:35 Jareth Jo NP is PHCP. pm1 11:35 David Torres DO is Attending Physician. pm1 11:48 Triage completed. iw 11:48 Alicia Wiley, RN is Primary Nurse. bm7 11:48 Zari Moreira, RHONDA is Primary Nurse. ap3 11:48 Arm band placed on. iw 11:50 Patient has correct armband on for positive identification. Bed in low position. Call ap3 light in reach. Side rails up X 1. Pulse ox on. NIBP on. Door closed. Noise minimized. 12:06 Inserted saline lock: 20 gauge in right antecubital area, using aseptic technique. ap3 Blood collected. 13:00 CT Abd/Pelvis - IV Contrast Only In Process Unspecified. EDMS 14:49 No provider procedures requiring assistance completed. IV discontinued, intact, ap3 bleeding controlled, No redness/swelling at site. Pressure dressing applied. Administered Medications: 12:07 Drug: NS 0.9% 1000 ml Route: IV; Rate: 1 bolus; Site: right antecubital; ap3 12:07 Drug: Zofran (Ondansetron) 4 mg Route: IVP; Site: right antecubital; ap3 Medication: 11:50 VIS not applicable for this client. ap3 Outcome: 14:21 Discharge ordered by MD. pm1 14:50 Discharged to home ambulatory. ap3 14:50 Condition: good 14:50 Discharge instructions given to patient, Instructed on discharge instructions, follow up and referral plans. medication usage, Demonstrated understanding of instructions, follow-up care, medications, Prescriptions given X 1. 14:50 Patient left the ED. ap3 Signatures: Dispatcher [employer] EDMS Kenzie Solitario Irene, RN RN iw Jareth Jo NP REMOTE ENCODING OPERATIONS SUPERVISOR pm1 Zari Moreira RN RN ap3 Alicia Wiley RN RN bm7
--- NOTE | 2021-11-29 14:21 | EDPHYS ---
Physician Documentation [facility] Name: Lilibeth Sharif Age: 31 yrs Sex: Female : 1990 Arrival Date: 11/29/2021 Time: 11:34 Bed 17 Private MD: ED Physician David Torres HPI: 11/29 11:48 This 31 yrs old Female presents to ER via Ambulatory with complaints of High pm1 Blood Sugar, Nausea/Vomiting. 11:48 The patient or guardian reports hyperglycemia, that was potentially precipitated by pm1 unknown. It has been elevated at night time for the past two days. Onset: The symptoms/episode began/occurred 2 day(s) ago. Associated signs and symptoms: Pertinent positives: chills and nausea and vomit x 1. Current symptoms: In the emergency department the patient's symptoms have improved, hyperglycemia improved on her monitor and pump. 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 Patient sent to the ER for evaluation to rule out any causes for hyperglycemia and to rule out pancreatitis . The patient has experienced a previous episode. The patient has been recently seen by a physician: with similar presenting complaints, and was sent to the [facility] Emergency Department for further evaluation, insulin pump adjusted by endocrinology office. 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 - Social history:: Smoking status: Patient denies any tobacco usage or history of. ROS: 11:48 Eyes: Negative for injury, pain, redness, and discharge, Cardiovascular: Negative for pm1 chest pain, palpitations, and edema, Respiratory: Negative for shortness of breath, cough, wheezing, and pleuritic chest pain. 11:48 Back: Negative for injury and pain, MS/Extremity: Negative for injury and deformity, Skin: Negative for injury, rash, and discoloration, Neuro: Negative for headache, weakness, numbness, tingling, and seizure. 11:48 Constitutional: Positive for chills, Negative for fever, poor PO intake. 11:48 Abdomen/GI: Positive for nausea and vomiting, Negative for abdominal pain, diarrhea, constipation. 11:48 : Positive for increased urination, Negative for burning with urination. 11:48 All other systems are negative. Exam: 11:48 Constitutional: This is a well developed, well nourished patient who is awake, alert, pm1 and in no acute distress. Head/Face: Normocephalic, atraumatic. 11:48 Back: No spinal tenderness. No costovertebral tenderness. Full range of motion. Skin: Warm, dry with normal turgor. Normal color with no rashes, no lesions, and no evidence of cellulitis. MS/ Extremity: Pulses equal, no cyanosis. Neurovascular intact. Full, normal range of motion. 11:48 Eyes: Exam is negative for acute changes, Periorbital structures: appear normal, Extraocular movements: no acute changes, Conjunctiva: no acute changes, no injection. 11:48 ENT: Exam is negative for acute changes, Mouth: no acute changes, Lips: normal, moist, Oral mucosa: normal, pink and intact, moist. 11:48 Cardiovascular: Exam negative for acute changes, Rate: normal, Rhythm: regular, Pulses: no pulse deficits are appreciated, Heart sounds: normal. 11:48 Respiratory: Exam negative for acute changes, respiratory distress, shortness of breath. 11:48 Abdomen/GI: Inspection: abdomen appears normal, Palpation: abdomen is soft and non-tender, in all quadrants. 11:48 Neuro: Exam negative for acute changes, Orientation: is normal, Mentation: is normal, Motor: is normal, moves all fours. Vital Signs: 11:50 BP 103 / 77; Pulse 65; Pulse Ox 99% ; ap3 13:09 BP 104 / 71; Pulse 60; Resp 18; Temp 97.7; Pulse Ox 100% ; Weight 65.77 kg; Height 5 ap3 ft. 5 in. (165.10 cm); 13:09 Body Mass Index 24.13 (65.77 kg, 165.10 cm) ap3 MDM: 11:38 Patient medically screened. pm1 11:48 ED course: Patient refused pain medications offered in the ER. Patient would like pm1 antinausea medicine instead. 12:52 Counseling: I had a detailed discussion with the patient and/or guardian regarding: lab pm1 results, Pending COVID result. Inform patient she is not in DKA. Patient going for CT. Pending CT results prior to disposition. 13:32 ED course: Discussed current lab results and CT results. Pending urine sample from pm1 patient. Patient's concerns for possible pancreatitis and DKA not present. 14:20 Data reviewed: vital signs. Data interpreted: Pulse oximetry: on room air is 100 %. pm1 Interpretation: normal. Counseling: I had a detailed discussion with the patient and/or guardian regarding: the historical points, exam findings, and any diagnostic results supporting the discharge/admit diagnosis, the need for outpatient follow up. 14:25 ED course: Patient refuses laxatives. Patient reports she does not feel that is a pm1 concern for her at the moment. Discussed with patient to ensure she drinks plenty of fluids to prevent that from happening. Impression due to the hyperglycemia she had some dehydration leading towards the moderate amount of stool present on CT. Patient without any changes in bowel movement pattern. 11/29 11:48 Order name: CBC with Diff; Complete Time: 12:49 pm1 11/29 11:48 Order name: CMP; Complete Time: 12:49 pm1 11/29 11:48 Order name: Lipase; Complete Time: 12:49 pm1 11/29 11:48 Order name: COVID-19 SARS RT PCR (Document "Date of Onset" if Symptomatic); Complete pm1 Time: 13:20 11/29 11:48 Order name: Flu; Complete Time: 12:49 pm1 11/29 11:56 Order name: Glucose, Ancillary Testing; Complete Time: 12:49 EDMS 11/29 11:48 Order name: CT Abd/Pelvis - IV Contrast Only; Complete Time: 13:20 pm1 11/29 11:48 Order name: IV Saline Lock; Complete Time: 12:06 pm1 11/29 11:48 Order name: Labs collected and sent; Complete Time: 12:12 pm1 11/29 13:43 Order name: Urine Dipstick-Ancillary; Complete Time: 13:45 EDMS Administered Medications: 12:07 Drug: NS 0.9% 1000 ml Route: IV; Rate: 1 bolus; Site: right antecubital; ap3 12:07 Drug: Zofran (Ondansetron) 4 mg Route: IVP; Site: right antecubital; ap3 Disposition: 21:02 Co-signature as Attending Physician, David Torres DO I was immediately available on-site ms3 in the Emergency Department for consultation in the care of the patient. . Disposition Summary: 11/29/21 14:21 Discharge Ordered Location: Home pm1 Problem: new pm1 Symptoms: have improved pm1 Condition: Stable pm1 Diagnosis - Hyperglycemia, unspecified pm1 - Dehydration pm1 - Constipation, unspecified pm1 Followup: pm1 - With: Emergency Department - When: As needed - Reason: Worsening of condition Followup: pm1 - With: Private Physician - When: 2 - 3 days - Reason: Recheck today's complaints, Continuance of care, Re-evaluation by your physician Discharge Instructions: - Discharge Summary Sheet pm1 - Constipation, Adult pm1 - Dehydration, Adult pm1 - Hyperglycemia pm1 - Blood Glucose Monitoring, Adult pm1 - Nausea and Vomiting, Adult pm1 - Diabetes Mellitus and Exercise pm1 - Rehydration, Adult pm1 Forms: - Medication Reconciliation Form pm1 - Thank You Letter pm1 - Antibiotic Education pm1 - Prescription Opioid Use pm1 Prescriptions: - ondansetron 4 mg Oral tablet,disintegrating - take 1 tablet by ORAL route every 8 hours As needed; 12 tablet; Refills: 0, pm1 Product Selection Permitted Signatures: Dispatcher [employer] Mariella Doll RN Jareth Perez NP COOLER TENDER pm1 Zari Moreira RN RN ap3 David Torres DO DO ms3
[2021-11-29 15:51] VITALS: BP 104/71; TEMP 97.7; O2SAT 100
== END 2021-11-29 14:50 | disposition home or self-care (01) ==
LOC: ER 11:32
DX: E11.65 Type 2 diabetes mellitus with hyperglycemia (principal); Z96.41 Presence of insulin pump (external) (internal); Z79.4 Long term (current) use of insulin; E86.0 Dehydration; K59.00 Constipation, unspecified; Z20.822 Contact with and (suspected) exposure to COVID-19; Z88.2 Allergy status to sulfonamides; Z88.3 Allergy status to other anti-infective agents; Z88.5 Allergy status to narcotic agent
CPT/HCPCS: 85025; 36415; 82947; 81003; 83690; 80053; 87804 ×2; 74177; 96374; 99284; U0003; Q9967; Q0162; J7030

== ENCOUNTER 2022-06-26 21:26 | Emergency (ER) | payer BC ==
--- OUTSIDE RECORDS SUMMARY | 2022-06-26 21:32 | XMS REPORT | Continuity of Care Document ---
:1990 Author Organization [facility] t Address [address] [facility] [address] [place] [address] Care Team Providers Name Role Phone Marsha Calvo Primary Care Physician MARSHA SAUER Attending Clinician Unavailable Marsha Calvo Attending Clinician Doctor Unassigned, [place] Attending Clinician Unavailable [email or web address] Attending Clinician Unavailable Glo Attending Clinician Unavailable Jose Roberto Oreilly Attending Clinician JOSE ROBETRO PRADO Attending Clinician Unavailable Pob, Adc Lab Main Attending Clinician Unavailable Gabriela Allred MD Attending Clinician GABRIELA ALLRED Attending Clinician Unavailable CAMRON NEWELL Attending Clinician Unavailable Camron Newell PA-C Attending Clinician Lab, Ang - Db Attending Clinician Unavailable Ramon VELASCO, Bradly Attending Clinician Jesu Kiser MD Attending Clinician JESU KISER Attending Clinician Unavailable Only, Adc Test Attending Clinician Unavailable Mary Hernandez RN Attending Clinician Unavailable Only, Ang Db Test Attending Clinician Unavailable Sukhdev Holley Attending Clinician Zakia Garner MD Attending Clinician Team, [facility] Attending Clinician Unavailabl e Lab, Adc Fam Pob I Attending Clinician Unavailable YURIDIA ARRIOLA Attending Clinician Unavailable MELANIA PARIS Attending Clinician Unavailable Provider, [facility] Attending Clinician Unavailable SUKHDEV ODONNELL Attending Clinician Unavailable Mikki Scott Attending Clinician Unavailable Jeanine Palm Attending Clinician Unavailable ANG SCHILLING Attending Clinician Unavailable 2, Adc Lab Attending Clinician Unavailable Ang Schilling MD Attending Clinician NONA ROMERO Attending Clinician Unavailable ZAKIA GARNER Attending Clinician Unavailable Tito ELLIS, Den Attending Clinician Unavailable Pob1, [facility] Attending Clinician Unavailable Yuridia Diaz Attending Clinician Galo Baez MD Attending Clinician GALO BAEZ Attending Clinician Unavailable RADIOLOGY Attending Clinician Unavailable 1, Adc Lab Attending Clinician Unavailable [email or web address] Admitting Clinician Unavailable Que_T Admitting Clinician Unavailable CAMRON NEWELL Admitting Clinician Unavailable RIYA NAILS Admitting Clinician Unavailable Physician, No Primary or Family Admitting Clinician UnavailANGÉLICA Garcia Admitting Clinician Unavailable Payers Payer Name Policy Type Policy Number Effective Date Expiration Date S ren [employer] [id number] 2014 EMPLOYEE PLAN 00:00:00 [place] [id number] 2020 [place] (PPO) 00:00:00 Problems Condition Condition Condition Status Onset Resolution Last Treating Co mments Source Name Details Category Date Date Treatment Clinician Date Bronchitis Bronchitis Disease Active U nivers 9-06 ity of 00:00: [place] 00 [facility] Wheezing Wheezing Disease Active Unive rs 9-06 ity of 00:00: [place] [facility] Cough Cough Disease Active Univers 9-06 ity of 00:00: [place] [facility] History of History of Disease Active U nivers pancreatit pancreatit 6-15 it y of is is 00:00: [place] [facility] Type 1 Type 1 Problem Active [place] diabetes Diabetes 3-05 Family mellitus Mellitus 00:00: Practi c 00 e Dizziness Dizziness Disease Active Uni vers 2-04 ity of 00:00: [place] [facility] Dyspnea on Dyspnea on Disease Active U nivers exertion exertion 2-04 ity of 00:00: [place] [facility] Fatigue, Fatigue, Disease Active Unive rs unspecifie unspecifie 2-04 it y of d type d type 00:00: [place] [facility] Clammy Clammy Disease Active Univers skin skin 2-04 ity of 00:00: [place] [facility] Rhinorrhea Rhinorrhea Disease Active U nivers 2-04 ity of 00:00: [place] [facility] Viral Viral Disease Active Univers syndrome syndrome 2-04 ity of 00:00: [place] [facility] Obesity Obesity Problem Active Village 6-23 Family 00:00: Practic 00 e Clinical Clinical Problem Active [place] ge finding Finding 7-01 Family 00:00: Practic 00 e Finding Finding Problem Active Village related to Related to 1-30 Fa anjelica sleep Sleep 00:00: Practic 00 e Anxiety Anxiety Disease Active Univers and and 1-14 ity of depression depression [place] [facility] Psoriasis Psoriasis Disease Active 2017-04 Uni vers 1-01 ity of 00:00: [place] [facility] Overweight Overweight Disease Active U nivers 6-22 ity of 00:00: [place] 00 [facility] Branch Iron Iron Disease Active Univers deficiency deficiency [...] 0-10 Fa anjelica 00:00: Practic 00 e Cardiovasc Cardiovasc Problem Active 2016-04 V illage jewel hollow[place] 0-10 Family measuremen Measuremen 00:00: Pr actic t - t - 00 e finding Finding Clinical Clinical Problem Active 2016-04 [place] ge finding Finding 0-10 Family 00:00: Practic 00 e Anemia Anemia Disease Active 2016-04 Univers 0-10 ity of 00:00: [place] 00 Medical Branch 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 2016-04 Uni vers current current 0-10 ity of use of use of 00:00: [place] insulin insulin 00 Medical Branch Megaloblas Megaloblas Disease Active 2016-04 U nivers tic anemia tic anemia 0-10 it y of due to due to 00:00: [place] vitamin vitamin 00 Medical B12 B12 Branch deficiency deficiency Presence Presence Disease Active 2016-04 Unive rs of insulin of insulin 0-10 it y of pump pump 00:00: [place] [facility] SVT SVT Disease Active Overview: Univer s (supravent (supravent 3-21 Formattin ity of ricular ricular 00:00: g of this [place] tachycardi tachycardi 00 note Me dical a) a) might be Branch different from the original. Dr. Pendleton ([facility]), followed q6mos Diabetic Diabetic Disease Active Unive [...] different from the original. ICD10 Diagnosis Term Electronic Gaming Device Supervisor Utility Obesity Obesity Disease Active Overview: Univ ers 5-02 Formattin ity of 00:00: g of this note Medical might be Branch different from the original. ICD10 Diagnosis Term Electronic Gaming Device Supervisor Utility Hypoglycem Hypoglycem Disease Active Overview : Univers ia ia 2-23 Formattin ity of 00:00: g of this note Medical might be Branch different from the original. 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 Claudy wolf Diabetes Diabetes Disease Active Overview: Un leeann mellitus mellitus 2-23 Formattin ity of 00:00: g of this note Medical might be Branch different from the original. 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 Claudy wolf Type 1 Type 1 Disease Active Univers diabetes diabetes 8-24 ity of mellitus mellitus 00:00: [place] 00 [facility] Sinusitis Sinusitis Problem Active [facility] Posterior Posterior Problem Active [facility] Nasal Nasal Problem Active [facility] Headache Headache Problem Active [facility] Allergies, Adverse Reactions, Alerts Allergy Allergy Status Severity Reaction(s) Onset Inactive Treating Comm ents Source Name Type Date Date Clinician DULAGLUT DRUG Active Unknown-Cmnt Un leeann KAREN INGREDI 2-15 ity of 00:00: [place] 00 [facility] Branch FLUCONAZ DRUG Active Hives Univers OLE INGREDI 2-15 ity of 00:00: 00 Medical Branch Dulaglut Drug Active Unknown - 0 Unive rs karen Allergy See comments 2-15 ity of 00:00: [place] 00 [facility] Branch Fluconaz Drug Active Hives Univers ole Allergy 2-15 ity of 00:00: 00 Medical Branch fluconaz DA Active U 2019-04 [facility] -[facility] [place] tramadol DA Active U 2019-04 [facility] -16 [facility] [place] Sulfa DA Active U ITCHING 2019-04 [facility] (Sulfona -16 Woman's mide 00:00: Hospita Antibiot 00 l of ics) [place] morphine DA Active U SHORTNESS OF 2019-04 HC A BREATH -16 Woman[facility] 00:[facility]: [facility] [place] hydrocod DA Active U ITCHING 2019-04 [facility] one -16 [facility] 00:[facility]: [facility] [place] fluconaz DA Active U HIVES 2019-04 [facility] ole -16 [facility] 00:[facility]: [facility] 00 [facility] [place] tramadol DA Active U ITCHY 2019- [facility] 1-16 [facility] 00:[facility]: [facility] [place] Sulfa DA Active U 2019- [facility] (Sulfona 1-16 Woman's mide 00:00: Hospita Antibiot 00 l [...] 00 l of [place] Sulfa DA Active IN 2017-0 [facility] (Sulfona 4-18 Woman's mide 00:00: Hospita Antibiot 00 l of ics) [place] morphine DA Active SV 2017-0 [facility] 4-18 Woman's 00:00: [facility] 00 [facility] [place] hydrocod DA Active IN 2017-0 [facility] one 4-18 Woman's 00:00: [facility] 00 [facility] [place] tramadol DA Active IN 2017-0 [facility] 4-18 Woman's 00:00: [facility] 00 [facility] [place] Sulfa DA Active IN ITCHING 2017-0 [facility] (Sulfona 4-18 Woman's mide 00:00: Hospita Antibiot 00 l of ics) [place] morphine DA Active SV SHORTNESS OF 2017-0 HC A BREATH 4-18 Woman's 00:00: [facility] 00 l of [place] hydrocod DA Active IN ITCHING 2017-0 [facility] one 4-18 Woman's 00:00: [facility] 00 l of [place] tramadol DA Active IN ITCHING 2017-0 [facility] 4-18 Woman's 00:00: [facility] 00 [facility] [place] Sulfa Propensi Active Itching Univers (Sulfona ty to 3-27 ity of mide adverse 00:00: [place] Antibiot reaction 00 Medica l ics) s Branch SULFA Drug Active ITCHING Univers (SULFONA Class 3-27 ity of MIDE 00:00: [place] ANTIBIOT 00 Medical ICS) Branch Adhesive Propensi Active Hives Univer s ty to 2-27 ity of adverse 00:00: [place] reaction 00 Medical s Branch ADHESIVE Drug Active Hives Univers Class 2-27 ity of 00:00: [place] [facility] TRAMADOL DRUG Active ITCHING Univers INGREDI 2-07 ity of 00:00: [place] 00 Medical Branch Tramadol Propensi Active Itching Unive rs ty to 2-07 ity of adverse 00:00: [place] reaction Medical s Branch HYDROCOD DRUG Active ITCHING Univers ONE INGREDI 09-18 ity of 00:00: [place] [facility] Hydrocod Drug Active Hives Univers one Allergy 09-18 ity of 00:00: [place] [facility] Hydrocod Propensi Active Itching Unive rs one ty to 09-18 ity of adverse 00:00: [place] reaction Medical s Branch MORPHINE DRUG Active ITCHING Univers INGREDI 8-24 ity of 00:00: [place] [facility] Morphine Propensi Active Shortness of [...] Date Stop Date Quantity Comments Source History [facility] o f Alcohol Frequency [facility] edical Branch History [facility] o f Alcohol Std [place] Medical Drinks Branch History [facility] o f Alcohol Binge [place] Medic al Branch Exposure to 2022-05-26 2022-06-05 Not sure University of SARS-CoV-2 00:00:00 14:03:00 [facility] (event) Branch Alcohol intake 2022-06-05 2022-06-05 .14 /d University of 00:00:00 00:00:00 [facility] Tobacco use and 2021-12-25 2021-12-25 Smokeless tobacco Un iversity of exposure 00:00:00 00:00:00 non-user [facility] Alcohol Comment 2014-07-15 2014-07-15 social Universit y of 00:00:00 00:00:00 [facility] Sex [birth year] At [birth year] Universit y of 00:00:00 00:00:00 [facility] Smoking Status Start Date Stop Date Source Never smoked tobacco [facility] Medications Ordered Filled Start Stop Current Ordering Indication Dosage Frequency Signature Comments Components Source Medication Medication Date Date Medication? Clinician (SIG) Name Name meloxicam Yes [id number] 7.5mg Take 1 Univers 7.5 mg 2-15 tablet by ity of tablet 00:00: mouth once [place] 00 daily as Medical needed Branch (back pain). meloxicam Yes [id number] 7.5mg Take 1 Univers 7.5 mg 2-15 tablet by ity of tablet 00:00: mouth once [place] 00 daily as Medical needed Branch (back pain). ketorolac 2022- No [id number] 30mg Un leeann (TORADOL) 05-30 ity of injection 00:00: 23:15 [place] 30 mg 00 :00 [facility] ketorolac 0 2022- No [id number] 30mg 30 mg, Univers (TORADOL) 05-30 Intramuscu ity of injection 00:00: 23:15 [place], ONCE, [place] 30 mg 00 :00 1 dose, On Medical Fri05/29/22 Branch at 1800, Routine ketorolac 2022- No [id number] 30mg Un leeann (TORADOL) 05-30 ity of injection 00:00: 23:15 [place] 30 mg 00 :00 [facility] [place] [facility] ketorolac 2022- No [id number] 30mg 30 mg, Univers (TORADOL) 05-30 Intramuscu ity of injection 00:00: 23:15 [place], ONCE, [place] 30 mg 00 :00 1 dose, On Medical Fri05/29/22 Branch at 1800, Routine lipase-prot Yes Take by Uni vers ease-amylas 08 mouth. ity of e (ZENPEP) 16:44: [place] 15,000-47,0 12 Medical 00 -63,000 Branch unit CpDR lipase-prot 2022-0 Yes Take by Uni vers ease-amylas 2-08 mouth. ity of e (ZENPEP) 16:44: [place] 15,000-47,0 12 Medical 00 -63,000 Branch unit CpDR lipase-prot 2022-0 Yes Take by Uni vers ease-amylas 2-08 mouth. ity of e (ZENPEP) 16:44: [place] 15,000-47,0 12 Medical 00 -63,000 Branch unit CpDR lipase-prot 2022-0 Yes Take by Uni vers ease-amylas 2-08 mouth. ity of e (ZENPEP) 16:44: [place] 15,000-47,0 12 Medical 00 -63,000 Branch unit CpDR AZITHROMYCI 0 Yes [id number] 500MG on Univers N 250 mg 12-25 day 1, ity of tablet 00:00: then 250mg 2-5 Medical Branch albuterol 0 Yes [id number] 2{puff} Inhale 2 Univers 90 9-06 Puffs ity of mcg/actuati 00:00: every 6 Rod as on inhaler 00 (six) Medical hours as Branch needed for Wheezing or Shortness of Breath. AZITHROMYCI 0 Yes [id number] 500MG on Univers N 250 mg 12-25 day 1, ity of tablet 00:00: then 250mg 2-5 Medical Branch albuterol 2021-0 Yes [id number] 2{puff} Inhale 2 Univers 90 9-06 Puffs ity of mcg/actuati 00:00: every 6 Rod as on inhaler 00 (six) Medical hours as Branch needed for Wheezing or Shortness of Breath. AZITHROMYCI 2021-0 Yes [id number] 500MG on Univers N 250 mg 12-25 day 1, ity of tablet 00:00: then 250mg [place] 2-5 Medical Branch albuterol 2021-0 Yes [id number] 2{puff} Inhale 2 Univers 90 9-06 Puffs ity of mcg/actuati 00:00: every 6 Rod as on inhaler 00 (six) Medical hours as Branch needed for Wheezing or Shortness of Breath. AZITHROMYCI 2022-0 Yes [id number] 500MG on Univers N 250 mg 12-25 day 1, ity of tablet 00:00: then 250mg 2-5 Medical Branch albuterol 2021-0 Yes [id number] 2{puff} Inhale 2 Univers 90 9-06 Puffs ity of mcg/actuati 00:00: every 6 Rod as on inhaler 00 (six) Medical hours as Branch needed for Wheezing or Shortness of Breath. AZITHROMYCI 2021-0 Yes [id number] 500MG on Univers N 250 mg 12-25 day 1, ity of tablet 00:00: then 250mg 2-5 Medical Branch albuterol 2021-0 Yes [id number] 2{puff} Inhale 2 Univers 90 9-06 Puffs ity of mcg/actuati 00:00: every 6 Rod as on inhaler 00 (six) Medical hours as Branch needed for Wheezing or Shortness of Breath. AZITHROMYCI 2021-0 Yes [id number] 500MG on Univers N 250 mg 12-25 day 1, ity of tablet 00:00: then 250mg 2-5 Medical Branch albuterol 2021-0 Yes [id number] 2{puff} Inhale 2 Univers 90 9-06 Puffs ity of mcg/actuati 00:00: every 6 Rod as on inhaler 00 (six) Medical hours as Branch needed for Wheezing or Shortness of Breath. AZITHROMYCI 0 Yes [id number] 500MG on Univers N 250 mg 12-25 day 1, ity of tablet 00:00: then 250mg 2-5 Medical Branch albuterol 2021-0 Yes [id number] 2{puff} Inhale 2 Univers 90 9-06 Puffs ity of mcg/actuati 00:00: every 6 Rod as on inhaler 00 (six) Medical hours as Branch needed for Wheezing or Shortness of Breath. benzonatate 2021-0 2021- No [id number] 200mg Take 1 Univers 200 mg 12-25-14 capsule by ity of capsule 00:00: 04:59 mouth 3 [place] 00 :00 (three) Medical times Branch daily as needed for Cough for up to 7 days. pantoprazol 2021-0 Yes Univer s e 40 mg EC 09-24 ity of tablet 00:00: [place] 00 Medical Branch pantoprazol 0 Yes Univer s e 40 mg EC 6-06 ity of tablet 00:00: [place] [facility] pantoprazol 2021-0 Yes Univer s e 40 mg EC 6-06 ity of tablet 00:00: [place] [facility] pantoprazol 2021-0 Yes Univer s e 40 mg EC 6-06 ity of tablet 00:00: [place] [facility] pantoprazol 2021-0 Yes Univer s e 40 mg EC 6-06 ity of tablet 00:00: [place] [facility] pantoprazol 2021-0 Yes Univer s e 40 mg EC 6-06 ity of tablet 00:00: [place] [facility] pantoprazol 0 Yes Univer s e 40 mg EC 6-06 ity of tablet 00:00: [place] [facility] metoprolol 0 Yes 12.5mg 12.5 mg. U nivers succinate [...] [place] injection 00 Medical Branch WEGOVY 2.4 2-0 Yes Univers mg/0.75 mL 2-01 ity of PnIj SC 00:00: [place] injection 00 Medical Branch WEGOVY 2.4 2-0 Yes Univers mg/0.75 mL 2-01 ity of PnIj SC 00:00: [place] injection 00 Medical Branch WEGOVY 2.4 2-0 Yes Univers mg/0.75 mL 2-01 ity of PnIj SC 00:00: [place] injection 00 Medical Branch WEGOVY 2.4 2-0 Yes Univers mg/0.75 mL 2-01 ity of PnIj SC 00:00: [place] injection 00 Medical Branch WEGOVY 2.4 2021-0 Yes Univers mg/0.75 mL 2-01 ity of PnIj SC 00:00: [place] injection 00 Medical Branch WEGOVY 2.4 2021-0 Yes Univers mg/0.75 mL 2-01 ity of PnIj SC 00:00: [place] injection 00 Medical Branch T:SLIM X2 1-0 Yes Univers Crtg 8-05 ity of 00:00: [place] 00 Medical Branch [facility] 2020-0 Yes Univers INFUSION 8-05 ity of SET 23" 00:00: [place] IS Medical Branch DEXCOM G6 2020-0 Yes Univers TRANSMITTER 8-05 ity of Mell 00:00: [place] 00 Medical Branch DEXCOM G6 2020-0 Yes Univers SENSOR Mell 8-05 ity of 00:00: Medical Branch T:SLIM X2 1-0 Yes Univers Crtg 8-05 ity of 00:00: [place] 00 Medical Branch [facility] 2020-0 Yes Univers INFUSION 8-05 ity of SET 23" 00:00: [place] ISet 00 Medical Branch DEXCOM G6 2020-0 Yes Univers TRANSMITTER 8-05 ity of Mell 00:00: [place] 00 Medical Branch DEXCOM G6 2020-0 Yes Univers SENSOR Mell 8-05 ity of 00:00: [place] [facility] T:SLIM X2 1-0 Yes Univers Crtg 8-05 ity of 00:00: [place] 00 Medical Branch [facility] 2020-0 Yes Univers INFUSION 8-05 ity of SET 23" 00:00: [place] ISet 00 Medical Branch DEXCOM G6 0 Yes Univers TRANSMITTER 8-05 ity of Mell 00:00: [place] 00 Medical Branch DEXCOM G6 2020-0 Yes Univers SENSOR Mell 8-05 ity of 00:00: [place] 00 Medical Branch T:SLIM X2 2020-0 Yes Univers Crtg 8-05 ity of 00:00: [place] 00 Medical Branch TRUSTEEL 2020-0 Yes Univers INFUSION 8-05 ity of SET 23" 00:00: [facility] 00 Medical Branch DEXCOM G6 2020-0 Yes Univers TRANSMITTER 8-05 ity of Mell 00:00: [place] 00 Medical Branch DEXCOM G6 2020-0 Yes Univers SENSOR Mell 8-05 ity of 00:00: [place] 00 Medical Branch T:SLIM X2 2020-0 Yes Univers Crtg 8-05 ity of 00:00: [place] 00 [facility] Yes Univers INFUSION 8-05 ity of SET 23" 00:00: [facility] 00 Medical Branch DEXCOM G6 2020-0 Yes Univers TRANSMITTER 8-05 ity of Mell 00:00: [place] 00 Medical Branch DEXCOM G6 2020-0 Yes Univers SENSOR Mell 8-05 ity of 00:00: [place] 00 Medical Branch T:SLIM X2 2020-0 Yes Univers Crtg 8-05 ity of 00:00: [place] 00 Medical Branch [facility] 2020-0 Yes Univers INFUSION 8-05 ity of SET 23" 00:00: [facility] 00 Medical Branch DEXCOM G6 2020-0 Yes Univers TRANSMITTER 8-05 ity of Mell 00:00: [place] 00 Medical Branch DEXCOM G6 2020-0 Yes Univers SENSOR Mell 8-05 ity of 00:00: [place] 00 Medical Branch T:SLIM X2 2020-0 Yes Univers Crtg 8-05 ity of 00:00: [place] 00 Medical Branch [facility] 2020-0 Yes Univers INFUSION 8-05 ity of SET 23" 00:00: [facility] 00 Medical Branch DEXCOM G6 2020-0 Yes Univers TRANSMITTER 8-05 ity of Mell 00:00: [place] 00 Medical Branch DEXCOM G6 2020-0 Yes Univers SENSOR Mell 8-05 ity of 00:00: [place] 00 Medical Branch LYUMJEV 2020-0 Yes Univers U-100 7-20 ity of INSULIN 100 00:00: [place] unit/mL 00 Medical Soln Branch LYUMJEV 2020-0 Yes Univers U-100 7-20 ity of INSULIN 100 00:00: [place] unit/mL 00 [facility] LYUMJEV 2020-0 Yes Univers U-100 7-20 ity of INSULIN 100 00:00: [place] unit/mL 00 [facility] LYUMJEV 2020-0 Yes Univers U-100 7-20 ity of INSULIN 100 00:00: [place] unit/mL 00 [facility] LYUMJEV 2020-0 Yes Univers U-100 7-20 ity of INSULIN 100 00:00: [place] unit/mL 00 [facility] LYUMJEV 2020-0 Yes Univers U-100 7-20 ity of INSULIN 100 00:00: [place] unit/mL 00 [facility] LYUMJEV 2020-0 Yes Univers U-100 7-20 ity of INSULIN 100 00:00: [place] unit/mL 00 [facility] fluticasone 2020-0 Yes [id number] 1 spray Univers propionate 2-07 each ity of 50 00:00: nostril [place] mcg/actuati 00 twice a Medic al on nasal day for 5 Branch spray days then daily fluticasone 0 Yes [id number] 1 spray Univers propionate 2-07 each ity of 50 00:00: nostril [place] mcg/actuati 00 twice a Medic al on nasal day for 5 Branch spray days then daily fluticasone 2020-0 Yes [id number] 1 spray Univers propionate 2-07 each ity of 50 00:00: nostril [place] mcg/actuati 00 twice a Medic al on nasal day for 5 Branch spray days then daily fluticasone 2020-0 Yes [id number] 1 spray Univers propionate 2-07 each ity of 50 00:00: nostril [place] mcg/actuati 00 twice a Medic al on nasal day for 5 Branch spray days then daily fluticasone 2020-0 Yes [id number] 1 spray Univers propionate 2-07 each ity of 50 00:00: nostril [place] mcg/actuati 00 twice a Medic al on nasal day for 5 Branch spray days then daily fluticasone 2020-0 Yes [id number] 1 spray Univers propionate 2-07 each ity of 50 00:00: nostril [place] mcg/actuati 00 twice a Medic al on nasal day for 5 Branch spray days then daily fluticasone 2020-0 Yes [id number] 1 spray Univers propionate 2-07 each ity of 50 00:00: nostril [place] mcg/actuati 00 twice a Medic al on nasal day for 5 Branch spray days then daily flash 2018- Yes [id number] 1{each} 1 Each Un leeann glucose 4-15 every 14 ity of sensor 00:00: (fourteen) [place] (FREESTYLE 00 days. Use Medi carlos JARET 14 as Branch DAY SENSOR) directed Kit with reader. flash 2018- Yes [id number] 1{each} 1 Each Un leeann glucose 4-15 every 14 ity of sensor 00:00: (fourteen) [place] (FREESTYLE 00 days. Use Medi carlos JARET 14 as Branch DAY SENSOR) directed Kit with reader. flash Yes [id number] 1{each} 1 Each Un leeann glucose 4-15 every 14 ity of sensor 00:00: (fourteen) [place] (FREESTYLE 00 days. Use Medi carlos JARET 14 as Branch DAY SENSOR) directed Kit with reader. flash Yes [id number] 1{each} 1 Each Un leeann glucose 4-15 every 14 ity of sensor 00:00: (fourteen) [place] (FREESTYLE 00 days. Use Medi carlos JARET 14 as Branch DAY SENSOR) directed Kit with reader. flash Yes [id number] 1{each} 1 Each Un leeann glucose 4-15 every 14 ity of sensor 00:00: (fourteen) [place] (FREESTYLE 00 days. Use Medi carlos JARET 14 as Branch DAY SENSOR) directed Kit with reader. flash Yes [id number] 1{each} 1 Each Un leeann glucose 4-15 every 14 ity of sensor 00:00: (fourteen) [place] (FREESTYLE 00 days. Use Medi carlos JARET 14 as Branch DAY SENSOR) directed Kit with reader. flash 2018- Yes [id number] 1{each} 1 Each Un leeann glucose 4-15 every 14 ity of sensor 00:00: (fourteen) [place] (FREESTYLE 00 days. Use Medi carlos JARET [...] Medical Group DEXCOM G6 DEXCOM G6 No DEX[address] CGM CGM CGM Family Practic e Dexcom G6 Dexcom G6 No Dex[address] Sensor Sensor Sensor Family device Take device Take device Practic 3 devices 3 devices Take 3 e every month every month devices by miscell. by miscell. every route. route. month by miscell. route. Dexcom G6 Dexcom G6 No Dex[address] Transmitter Transmitter Transmitte Family device device r device Practic e Brody Skinner No Brody [place] e KwikPen KwikPen KwikPen Family U-100 U-100 U-100 Practic Insulin 100 [...] CF 50 50 1:30: TDD 50 Lyumjev Lyumjev No Lyumjev [place] e U-100 [...] every month by month by month by brandy. radhacell. miscell. route. route. route. Wegovy 2.4 Wegovy 2.4 No Wegovy 2.4 [facility] mg/0.75 mL mg/0.75 mL mg/0.75 mL Family subcutaneou subcutaneou subcutaneo Practic s pen s pen us pen e injector injector injector Inject 2.4 Inject 2.4 Inject 2.4 mg every mg every mg every week by week by week by subcutaneou subcutaneou subcutaneo s route for s route for us route 28 days. 28 days. for 28 days. Accu-Chek Accu-Chek No 5strip( Q1D Accu-Chek [facility] Guide test Guide test s) Guide test Family strips Take strips Take strips Practic 5 strips 5 strips Take 5 e every day every day strips by miscell. by miscell. every day route for route for by 30 days. 30 days. miscell. route for 30 days. Dexcom G6 Dexcom G6 No Dexcom [address] CGM CGM CGM Family Practic e Dexcom G6 Dexcom G6 No Dexcom [address] Sensor Sensor Sensor Family device Take device Take device Practic 3 devices 3 devices Take 3 e every month every month devices by miscell. by miscell. every route. route. month by miscell. route. Dexcom G6 Dexcom G6 No Dexcom 44 [address] Transmitter Transmitter Transmitte Family device device r device Practic e Brody Skinner No Lyumjev Villag e KwikPen KwjanPen Jose RaulikДмитрий Family U-100 U-100 U-100 Practic Insulin 100 [...] CF 50 50 1:30: TDD 50 Lyumjev Lyumjev No Lyumjev Villag e U-100 [...] sublingual sublingual Practic tablet tablet tablet e ondansetron ondansetron No ondansetro Village HCl 4 mg HCl 4 mg n HCl 4 mg F amily tablet tablet tablet Practic e pantoprazol pantoprazol No pantoprazo Village e [...] miscell. miscell. miscell. route. route. route. Wegovy 1 Wegovy 1 No 1mg Q1W Wegovy 1 Luan gillian mg/0.5 mL mg/0.5 mL mg/0.5 mL Family subcutaneou subcutaneou subcutaneo Practic s pen s pen us pen e injector injector injector Inject 1 mg Inject 1 mg Inject 1 every week every week mg every by by week by subcutaneou subcutaneou subcutaneo s route for s route for us route 28 days. 28 days. for 28 days. Wegovy 1.7 Wegovy 1.7 No 1.7mg Q1W Wegovy 1.7 Village mg/0.75 mL mg/0.75 mL mg/0.75 mL Family subcutaneou subcutaneou subcutaneo Practic s pen s pen us pen e injector injector injector Inject 1.7 Inject 1.7 Inject 1.7 mg every mg every mg every week by week by week by subcutaneou subcutaneou subcutaneo s route for s route for us route 28 days. 28 days. for 28 days. Wegovy 2.4 Wegovy 2.4 No 2.4mg Q1W Wegovy 2.4 Village mg/0.75 mL mg/0.75 mL mg/0.75 mL Family subcutaneou subcutaneou subcutaneo Practic s pen s pen us pen e injector injector injector Inject 2.4 Inject 2.4 Inject 2.4 mg every mg every mg every week by week by week by subcutaneou subcutaneou subcutaneo s route for s route for us route 28 days. 28 days. for 28 days. Zenpep Zenpep No Zenpep Village 40,000 40,000 40,000 Family unit-126,00 unit-126,00 unit-126,0 Practic 0 0 00 e unit-168,00 unit-168,00 unit-168,0 0 unit 0 unit 00 unit capsule,del capsule,del capsule,de ayed ayed layed release release release Immunizations Ordered Filled Immunization Date Status Comments Sourc e Immunization Name Name Influenza Virus 2021-01-19 Completed Universit y of Vaccine Quad IM 3+ 00:00:00 [facility] Influenza Virus 2021-01-19 Completed Universit y of Vaccine Quad IM 3+ 00:00:00 [facility] Influenza Virus 2021-01-19 Completed Universit y of Vaccine Quad IM 3+ 00:00:00 [facility] Influenza Virus 2021-01-19 Completed Universit y of Vaccine Quad IM 3+ 00:00:00 [facility] Influenza Virus 2021-01-19 Completed Universit y of Vaccine Quad IM 3+ 00:00:00 [facility] Influenza Virus 2021-01-19 Completed Universit y of Vaccine Quad IM 3+ 00:00:00 [facility] Influenza Virus 2021-01-19 Completed Universit y of Vaccine Quad IM 3+ 00:00:00 [facility] COVID-19, mRNA, COVID-19, mRNA, 2020-09-25 Completed Vill age Family LNP-S, PF, 30 LNP-S, PF, 30 00:00:00 Practice mcg/0.3 mL dose mcg/0.3 mL dose (Pfizer-BioNTech) (Pfizer-BioNTech) COVID-19, mRNA, COVID-19, mRNA, 2020-09-25 Completed Vill age Family LNP-S, PF, 30 LNP-S, PF, 30 00:00:00 Practice mcg/0.3 mL dose mcg/0.3 mL dose (Pfizer-BioNTech) (Pfizer-BioNTech) SARS-COV-2 COVID-19 2020-09-25 Completed Unive rsity of PFIZER VACCINE 00:00:00 [facility] SARS-COV-2 COVID-19 2020-09-25 Completed Unive rsity of PFIZER VACCINE 00:00:00 [facility] SARS-COV-2 COVID-19 2020-06-02 Completed Unive rsity of PFIZER VACCINE 00:00:00 [facility] SARS-COV-2 COVID-19 2020-06-02 Completed Unive rsity of PFIZER VACCINE 00:00:00 [facility] SARS-COV-2 COVID-19 2020-06-02 Completed Unive rsity of PFIZER VACCINE 00:00:00 [facility] SARS-COV-2 COVID-19 2020-06-02 Completed Unive rsity of PFIZER VACCINE 00:00:00 [facility] SARS-COV-2 COVID-19 2020-06-02 Completed Unive rsity of PFIZER VACCINE 00:00:00 [facility] SARS-COV-2 COVID-19 2020-06-02 Completed Unive rsity of PFIZER VACCINE 00:00:00 [facility] SARS-COV-2 COVID-19 2020-06-02 Completed Unive rsity of PFIZER VACCINE 00:00:00 [facility] COVID-19 COVID-19 2020-05-22 Completed [facility] Family (SARS-COV-2) (SARS-COV-2) 00:00:00 Practice vaccine, vaccine, unspecified unspecified COVID-19 COVID-19 2020-05-22 Completed [facility] Family (SARS-COV-2) (SARS-COV-2) 00:00:00 Practice vaccine, vaccine, unspecified unspecified SARS-COV-2 COVID-19 2020-05-22 Completed Unive rsity of UNSPECIFIED VACCINE 00:00:00 [facility] SARS-COV-2 COVID-19 2020-05-22 Completed Unive rsity of UNSPECIFIED VACCINE 00:00:00 [facility] SARS-COV-2 COVID-19 2020-05-12 Completed Unive rsity of PFIZER VACCINE 00:00:00 [facility] SARS-COV-2 COVID-19 2020-05-12 Completed Unive rsity of PFIZER VACCINE 00:00:00 [facility] SARS-COV-2 COVID-19 2020-05-12 Completed Unive rsity of PFIZER VACCINE 00:00:00 [facility] SARS-COV-2 COVID-19 2020-05-12 Completed Unive rsity of PFIZER VACCINE 00:00:00 [facility] SARS-COV-2 COVID-19 2020-05-12 Completed Unive rsity of PFIZER VACCINE 00:00:00 [facility] SARS-COV-2 COVID-19 2020-05-12 Completed Unive rsity of PFIZER VACCINE 00:00:00 [facility] SARS-COV-2 COVID-19 2020-05-12 Completed Unive rsity of PFIZER VACCINE 00:00:00 [facility] influenza, influenza, 2020-01-20 Completed [facility] Family injectable, injectable, 00:00:00 Practice quadrivalent quadrivalent influenza, influenza, 2020-01-[address] [facility] injectable, injectable, 00:00:00 Practice quadrivalent quadrivalent Influenza Virus 2020-01-20 Completed Universit y of Vaccine Quad IM 00:00:00 [place] [facility]-dose 6+ [facility] Influenza Virus 2020-01-20 Completed Universit y of Vaccine Quad IM 00:00:00 [place] [facility] Multi-dose 6+ [place] [facility] Influenza Virus 2018-01-29 Completed Universit y of Vaccine Quad IM 3+ 00:00:00 [facility] Influenza Virus 2018-01-29 Completed Universit y of Vaccine Quad IM 3+ 00:00:00 [facility] Influenza Virus 2018-01-29 Completed Universit y of Vaccine Quad IM 3+ 00:00:00 [facility] Influenza Virus 2018-01-29 Completed Universit y of Vaccine Quad IM 3+ 00:00:00 [facility] Influenza Virus 2018-01-29 Completed Universit y of Vaccine Quad IM 3+ 00:00:00 [facility] Influenza Virus 2018-01-29 Completed Universit y of Vaccine Quad IM 3+ 00:00:00 [facility] Influenza Virus 2018-01-29 Completed Universit y of Vaccine Quad IM 3+ 00:00:00 [facility] TDAP 2016-07-20 Completed University of 00:00:00 [facility] TDAP 2016-07-20 Completed University of 00:00:00 [facility] TDAP 2016-07-20 Completed University of 00:00:00 [facility] TDAP 2016-07-20 Completed University of 00:00:00 [facility] TDAP 2016-07-20 Completed University of 00:00:00 [facility] TDAP 2016-07-20 Completed University of 00:00:00 [facility] TDAP 2016-07-20 Completed University of 00:00:00 [facility] Tetanus Toxoid, 2015-04-21 Completed Universit y of Absorbed 00:00:00 [facility] Tetanus Toxoid, 2015-04-21 Completed Universit y of Absorbed 00:00:00 [facility] tetanus toxoid, tetanus toxoid, 2015-04-21 Completed Vill age Family adsorbed adsorbed 00:00:00 Practice tetanus toxoid, tetanus toxoid, 2015-04-21 Completed Vill age Family adsorbed adsorbed 00:00:00 Practice Vital Signs Vital Name Observation Time Observation Value Comments Source Systolic blood 2022-06-05 20:13:00 130 mm[Hg] Univer sity of pressure [facility] Diastolic blood 2022-06-05 20:13:00 84 mm[Hg] Unive rsity of pressure [facility] Heart rate 2022-06-05 20:13:00 97 /min [facility] Body height 2022-06-05 20:13:00 160 cm [facility] Body weight 2022-06-05 20:13:00 78.155 kg [facility] BMI 2022-06-05 20:13:00 30.52 kg/m2 [facility] Oxygen saturation in 2022-06-05 20:13:00 100 /min University of Arterial blood by [facility] Pulse oximetry Branch Systolic blood 2022-05-29 22:44:00 118 mm[Hg] Univer sity of pressure [facility] Diastolic blood 2022-05-29 22:44:00 74 mm[Hg] Unive rsity of pressure [facility] Heart rate 2022-05-29 22:44:00 92 /min [facility] Body height 2022-05-29 22:44:00 160 cm [facility] Body weight 2022-05-29 22:44:00 77.111 kg [facility] BMI 2022-05-29 22:44:00 30.11 kg/m2 [facility] Oxygen saturation in 2022-05-29 22:44:00 99 /min University of Arterial blood by [facility] Pulse oximetry Branch BP Diastolic 2022-02-05 00:00:00 72 mm[Hg] [facility] Family Practice Height 2022-02-05 00:00:00 63 [in_i] [facility] Practice BMI (Body Mass 2022-02-05 00:00:00 30.1 kg/m2 Villag e Family Index) Practice BP Systolic 2022-02-05 00:00:00 108 mm[Hg] [facility] Practice Body Weight 2022-02-05 00:00:00 170 [lb_av] [facility] Practice Systolic blood 2021-12-25 18:44:00 104 mm[Hg] Univer sity of pressure [facility] Diastolic blood 2021-12-25 18:44:00 71 mm[Hg] Unive rsity of pressure [facility] Heart rate 2021-12-25 18:44:00 98 /min [facility] Body temperature 2021-12-25 18:44:00 36.89 Urmila Univ ersity [facility] Body height 2021-12-25 18:44:00 160 cm [facility] Body weight 2021-12-25 18:44:00 76.658 kg [facility] BMI 2021-12-25 18:44:00 29.94 kg/m2 [facility] Oxygen saturation in 2021-12-25 18:44:00 99 /min University Arterial blood by [facility] Pulse oximetry Branch BP Diastolic 2021-10-03 00:00:00 [...] Practice BP Diastolic 2020-07-14 00:00:00 77 mm[Hg] [facility] Practice Height 2020-07-14 00:00:00 63 [in_i] [facility] Practice BMI (Body Mass 2020-07-14 00:00:00 32.8 kg/m2 [facility] Family Index) Practice BP Systolic 2020-07-14 00:00:00 108 mm[Hg] [facility] Body Weight 2020-07-14 00:00:00 185 [lb_av] [facility] Practice BP Diastolic 2020-04-11 00:00:00 68 mm[Hg] [facility] Practice Height 2020-04-11 00:00:00 63 [in_i] [facility] Practice BMI (Body Mass 2020-04-11 00:00:00 31.4 kg/m2 [facility] e Family Index) Practice BP Systolic 2020-04-11 00:00:00 118 mm[Hg] [facility] Body Weight 2020-04-11 00:00:00 177 [lb_av] [facility] BP Diastolic 2019-02-10 00:00:00 75 mm[Hg] [facility] Height 2019-02-10 00:00:00 63 [in_i] [facility] BMI (Body Mass 2019-02-10 00:00:00 25.7 kg/m2 [facility] BP Systolic 2019-02-10 00:00:00 120 mm[Hg] [facility] Body Weight 2019-02-10 00:00:00 145.1 [lb_av] [facility] Procedures Procedure Date / Time Performing Clinician Source Performed ASSIGNMENT OF BENEFITS 2022-05-29 22:26:18 Doctor Unassigned, No [facility] Name Medical Branch EXTERNAL PROVIDER 2022-01-07 05:01:00 Doctor Unassigned, No [facility] RECORDS Name Medical Branch Hysterectomy (Total) 2019-06-20 00:00:[address] [facility] [address], sinuses, w/o 2019-02-10 00:00:00 Carlito molina contrast Group Laparoscopic Sleeve 2015-09-20 00:00:00 [facility] Practice Sinus Surgery [facility] Plan of Care Planned Activity Planned Date Details Comments Source Diagnostic Test 2022-02-05 glucose, Village Fami ly Pending 00:00:00 fingerstick, blood Practice [code = glucose, fingerstick, blood] Diagnostic Test 2022-02-05 hemoglobin A1C, Village Louie hermosillo Pending 00:00:00 fingerstick [code = Practice hemoglobin A1C, fingerstick] Instructions Carlito rizo Group Encounters Start End Encounter Admission Attending Care Care Encounter Source Date/Time Date/Time Type Type Clinicians Facility Department ID 2022-06-05 2022-06-05 Out[facility] [id number] Univers 14:00:00 14:56:53 MARSHA itrey [facility] 2022-06-05 2022-06-05 [facility] 1.2.840.114 [id number] Univers 14:00:00 14:56:53 Visit [facility] 350.1.13.10 i ty of [place] 4.2.7.2.686 Rod as OLEGARIO?BLEA [id number] [address] MEDICAL OFFICE [facility] 2022-05-29 2022-05-29 Outpatient R [facility] [id number] Univers 16:30:00 17:14:09 MARSHA itrey [facility] 2022-05-29 2022-05-29 [facility] 1.2.840.114 [id number] Univers 16:30:00 17:14:09 Visit [facility] 350.1.13.10 i ty of [place] 4.2.7.2.686 Rod as OLEGARIO?BLEA [id number] [address] MEDICAL OFFICE [facility] 2022-05-29 2022-05-29 Orders Doctor DANIEL 1.2.840.114 [id number] Univers 00:00:00 00:00:00 Only Unassigned, MADHU 350.1.13.10 ity of [place] [facility] 4.2.7.2.686 Rod as [id number] [address] 2022-02-05 2022-02-05 Outpatient Bui_Q_WAGDN VFP VFP 114 1030-20 [facility] 00:00:00 00:00:00 U [id number] Family Practic e 2022-02-05 2022-02-05 Outpatient Bui_Q_WAGDN VFP VFP 114 1030-20 [facility] 00:00:00 00:00:00 U [id number] Family Practic e 2022-02-05 2022-02-05 Claudy VFP [place] - [id number] V illage 00:00:00 00:00:00 [facility] Family GreyJaime - Garth sharma MD: [id number] [place] - e Shadow VM_HOU_Shad [address], [address], [place] [address] , Ph. 2022-01-23 2022-01-23 Outpatient Daniel_T VFP VFP [id number] [facility] 00:00:00 00:00:00 [id number] Family Practic e 2022-01-22 2022-01-22 Outpatient Bui_Q_WAGDN VFP VFP 114 1030-20 [facility] 00:00:00 00:00:00 U [id number] Family Practic e 2022-01-07 2022-01-07 Orders Doctor DANIEL 1.2.840.114 [id number] Univers 00:00:00 00:00:00 Only Unassigned, MADHU 350.1.13.10 ity of [place] [facility] 4.2.7.2.686 Rod as [id number] [address] 2021-12-25 2021-12-25 Office Johan [facility] 1.2.840.114 [id number] Univers 13:30:00 14:00:00 Visit [facility] 350.1.13.10 it y of [place] 4.2.7.2.686 Rod as OLEGARIO?BLEA [id number] [address] MEDICAL OFFICE BUILDING 2021-12-25 2021-12-25 Outpatient R JOHAN [facility] [id number] Univers 13:30:00 13:30:00 JOSE ROBERTO steven of [facility] 2021-12-18 2021-12-18 Outpatient Daniel_T VFP VFP [id number] [id number] [facility] 00:00:00 00:00:00 [id number] Family Practic e 2021-11-13 2021-11-13 Outpatient Daniel_T VFP VFP [id number] 0-20 Village 02:41:00 02:41:00 [id number] Family Practic e 2021-10-26 2021-10-26 Outpatient Belindai_Raciel_JANEL VFP VFP 114 1030-20 [facility] 09:19:00 09:19:00 U [id number] Family Practic e 2021-10-24 2021-10-24 Supervisor Pairing And Inspecting Xi, Alie Lab Main [facility] 1.2.8 40.114 [id number] Univers 08:30:00 08:45:00 Visit Gabriela Allred 350.1.13.10 ity of [place]2.7.2.686 [place] [id number] Hi dical [address] 2021-10-24 2021-10-24 Outpatient Jannie ALLRED [facility] [id number] Univers 08:30:00 08:30:00 GABRIELA itrey [facility] 2021-10-24 2021-10-24 Orders Doctor DANIEL 1.2.840.114 [id number] Univers 00:00:00 00:00:00 Only Unassigned, MADHU 350.1.13.10 ity of [place] [facility] 4.2.7.2.686 Rod as [id number] [place] [address] Branch 2021-10-11 2021-10-11 Outpatient Jannie [facility] [id number] Univers 15:29:12 23:59:00 CAMRON ity [facility] 2021-10-11 2021-10-11 [facility] 1.2.840.114 [id number] Univers 15:29:12 23:59:00 [facility] 350.1.13.10 ity of [place].2.[place] [id number] [facility] 806 Branch (CLC) 2021-10-11 2021-10-11 Outpatient Jannie [facility] [id number] Univers 15:29:12 23:59:00 CAMRON ity [facility] 2021-10-08 2021-10-08 Supervisor Pairing And Inspecting Ana, Chris Anthony [facility] 1.2.840.1 14 [id number] Univers 11:00:00 11:15:00 Visit Marsha Sauer HEALTH 350.1.13.10 ity of [place] 4.2.7.2.686 Rod as OLEGARIO?BLEA [id number] [facility] [address] [facility] OFFICE [facility] 2021-10-08 2021-10-08 Outpatient R [facility] [id number] Univers 10:00:00 10:33:16 CAMRON ity [facility] 2021-10-08 2021-10-08 Office [facility] 1.2.840.114 [id number] Univers 10:00:00 10:33:16 Visit Camron HEALTH 350.1.13.10 it y of [place] 4.2.7.2.686 Rod as OLEGARIO?BLEA [id number] [address] OFFICE [facility] 2021-10-08 2021-10-08 Outpatient R [facility] [id number] Univers 10:00:00 10:33:16 CAMRON [facility] 2021-10-03 2021-10-03 Claudy GreyGene [facility] [place] - [id number] Village 00:00:00 00:00:00 [facility] [id number] Family Jaime Grey - Prackalyan sharma MD: [id number] VM_NICOLAS_Garland e Shadow [facility], [address], [place] [address] , Ph. 2021-09-28 2021-09-28 Outpatient R [facility] [id number] Univers 11:30:00 13:03:14 MARSHA ity [facility] 2021-09-28 2021-09-28 [facility] 1.2.840.114 [id number] Univers 11:30:00 13:03:14 Visit Marsha Cesar HEALTH 350.1.13.10 i ty of [place] 4.2.7.2.686 Rod as OLEGARIO?BLEA [id number] [address] OFFICE [facility] 2021-09-05 2021-09-05 Outpatient Que[facility]Gene [facility] [id number] 0-20 Village 04:42:00 04:42:00 [id number] Family Practic e 2021-09-04 2021-09-04 Outpatient Bui_Q_WAGDN [facility] 114 1030-20 [facility] 11:36:00 11:36:00 U [id number] Family Practic e 2021-08-23 2021-08-23 Orders Doctor SANCHEZ 1.2.840.114 [id number] Univers 00:00:00 00:00:00 Only Unassigned, MADHU 350.1.13.10 ity of [place] [facility] 4.2.7.2.686 Rod as [id number] [address] 2021-08-15 2021-08-15 Telephone Ramon [facility] 1.2.312.349 [id number] [facility] 00:00:00 00:00:00 [facility] 350.1.13.10 it y of [place] 4.2.7.2.686 Rod as OLEGARIO?BLEA [id number] Hi luci CABA [address] MEDICAL OFFICE BUILDING 2021-08-14 2021-08-14 Claudy Grey_T [facility] [place] - [id number] 0 [facility] 00:00:00 00:00:00 [facility] [id number] Family GreyJaime - Prackalyan sharma MD: [id number] VM_NICOLAS_Garland e Shadow ow [address] [facility], [address], [place] [address] , Ph. 2021-07-16 2021-07-16 Supervisor Pairing And Inspecting Alie Layne Lab Main [facility] 1.2.8 40.114 [id number] Univers 11:00:00 11:15:00 Visit Jesu Kiser 350.1.13. 10 ity of [place] [id number] Hi luci RIVERA [address] BUILDING 2021-07-16 2021-07-16 Outpatient R RASHEL [facility] [id number] Univers 11:00:00 11:00:00 VALERIOFUL ity o f [facility] 2021-07-16 2021-07-16 Orders Doctor SANCHEZ 1.2.840.114 [id number] Univers 00:00:00 00:00:00 Only Unassigned, MADHU 350.1.13.10 ity of [place] [facility] 4.2.7.2.686 Rod as [id number] [address] 2021-07-13 2021-07-13 Outpatient Jannie RASHEL [facility] [id number] Univers 16:00:00 17:03:21 WONDIFUL ity o f [facility] 2021-07-13 2021-07-13 Office Rashel [facility] 1.2.840.114 [id number] Univers 16:00:00 17:03:21 Visit Wondiful A HEALTH 350.1.13.10 ity of [place] 4.2.7.2.686 Rod as OLEGARIO?BLEA [id number] [address] MEDICAL OFFICE [facility] 2021-07-02 2021-07-02 Outpatient Daniel_T VFP VFP [id number] [id number] Village 02:19:00 02:19:00 [id number] Family Practic e 2021-05-31 2021-05-31 Outpatient Daniel_T VFP VF [id number] 0-20 Village 03:30:00 03:30:00 [id number] Family Practic e 2021-05-25 2021-05-25 Supervisor Pairing And Inspecting Lab, Ang - [facility] 1.2.840.1 14 [id number] Univers 10:45:00 11:00:00 Visit Lewis Kiserking Arsenio HEALTH 350.1.13.1 0 [facility] 4.2.7.2.686 Rod as OLEGARIO?BLEA [id number] [facility] [address] MEDICAL OFFICE [facility] 2021-05-25 2021-05-25 Outpatient Jannie KISER [facility] [id number] Univers 10:45:00 10:45:00 WONDIFUL ity o louie [facility] 2021-05-25 2021-05-25 Office Johan [facility] 1.2.840.114 [id number] Univers 09:30:00 10:37:03 Visit Jose Roberto HEALTH 350.1.13.10 it y of [place] 4.2.7.2.686 Rod as OLEGARIO?BLEA [id number] [address] MEDICAL OFFICE [facility] 2021-05-25 2021-05-25 Outpatient R JOHAN, [facility] [id number] Univers 09:30:00 10:37:03 JOSE ROBERTO itrey [facility] 2021-05-25 2021-05-25 Lb Prado [facility] 1.2.840.114 [id number] Univers 00:00:00 00:00:00 (Out) Jose Roberto [facility] 350.1.13.10 it y of [place] 4.2.7.2.686 Rod as OLEGARIO?BLEA [id number] Hi dical [facility] [address] [facility] OFFICE [facility] 2021-05-22 2021-05-22 Supervisor Pairing And Inspecting Xi, Adc Lab Main [facility] 1.2.8 40.114 [id number] Univers 07:30:00 07:45:00 Visit Gabriela Allred 350.1.13.10 ity of [place] [id number] Hi dicsallie [address] 2021-05-22 2021-05-22 Outpatient R DENGCOLEMAN [facility] [id number] Univers 07:30:00 07:30:00 GABRIELA tenisha [facility] 2021-05-22 2021-05-22 Orders Doctor DANIEL 1.2.840.114 [id number] Univers 00:00:00 00:00:00 Only Unassigned, MADHU 350.1.13.10 ity of [place] [facility] 4.2.7.2.686 Rod as [id number] [address] 2021-05-17 2021-05-17 Outpatient Bui_Q_WAGDN [facility] 114 1030-20 [facility] 11:37:00 11:37:00 U [id number] Family Practic e 2021-05-16 2021-05-16 Claudy Que_T [facility] [place] - [id number] 0 Village 00:00:00 00:00:00 [facility] [id number] Jaime Barros - Garth sharma MD: [id number] VM_HOU_Shaalonzo e Shadow [address] [facility], [address], [place] [address] , Ph. 2021-05-10 2021-05-10 Laboratory Only, Adc Test [facility] 1.2.840. 114 [id number] Univers 11:45:00 12:00:00 Only Gabriela Allred 350.1.13.10 ity [facility] 4.2.7.2.[place] [id number] [facility] [address] 2021-05-10 2021-05-10 Outpatient [facility] [id number] Univers 11:45:00 11:45:00 GABRIELA ity [facility] 2021-05-10 2021-05-10 Orders Doctor SANCHEZ 1.2.840.114 [id number] Univers 00:00:00 00:00:00 Only Unassigned, MADHU 350.1.13.10 ity of [place] [facility] 4.2.7.2.686 Rod as [id number] [facility] [address] 2021-04-24 2021-04-24 Supervisor Pairing And Inspecting Xi, Adc Lab Main [facility] 1.2.8 40.114 [id number] Univers 12:15:00 12:30:00 Visit Jesu Kiser 350.1.13. 10 ity of [place].2.7.2.686 [place] [facility] [phone] [address] 2021-04-24 2021-04-24 [facility] [id number] Univers 12:15:00 12:15:00 WONDIFUL ity o f [facility] 2021-04-24 2021-04-24 Letter DANIEL Hernandez 1.2.840.114 [id number] Univers 00:00:00 00:00:00 (Out) Mary LEUNG 350.1.13.10 it y of HOSPITAL 4.2.7.2.686 Rod as [phone] [facility] [address] 2021-03-06 2021-03-06 [facility] 1.2.840.114 [id number] Univers 13:19:43 14:08:46 Visit Jesu A [facility] 350.1.13.10 ity of [place] 4.2.7.2.686 Rod as OLEGARIO?BLEA [phone] Hi luci [address] MEDICAL OFFICE [facility] 2021-03-06 2021-03-06 Outpatient Jannie RASHEL [facility] [id number] Univers 13:15:00 14:08:46 WONDIFUL ity o f [facility] 2021-03-06 2021-03-06 Outpatient Jannie RASHEL, [facility] [id number] Univers 13:15:00 14:08:46 WONDIFUL ity o f [facility] 2021-03-05 2021-03-05 Laboratory Only, Adc Test [facility] 1.2.840. 114 [id number] Univers 11:21:14 11:36:14 Only Jesu Kiser [place] 350.1.13. 10 ity of [place] 4.2.7.2.686 [place] [facility] [phone] [address] 2021-03-05 2021-03-05 Outpatient R RASHEL [facility] [id number] Univers 10:45:00 10:45:00 WONDIFUL ity o [facility] 2021-03-02 2021-03-02 Outpatient Daniel_T VFP VFP [id number] 0-20 Village 09:46:00 09:46:00 [id number] Family Practic e 2021-02-28 2021-02-28 Outpatient Jannie KISER [facility] [id number] Univers 11:00:00 11:00:00 WONDIFUL ity o [facility] 2021-02-28 2021-02-28 Outpatient Jannie KISER [facility] [id number] Univers 11:00:00 11:00:00 WONDIFUL ity o [facility] 2021-02-27 2021-02-27 [facility] 1.2.840.114 [id number] Univers 14:54:20 15:58:35 [facility] A [facility] 350.1.13.10 ity of [place] 4.2.7.2.686 Rod as OLEGARIO?BLEA [phone] [address] MEDICAL OFFICE [facility] 2021-02-27 2021-02-27 Outpatient [facility] [id number] Univers 14:30:00 15:58:35 WONDIFUL ity o f [facility] 2021-02-27 2021-02-27 Outpatient R RASHEL, [facility] [id number] Univers 14:30:00 14:30:00 WONDIFUL ity o f [facility] 2021-02-05 2021-02-05 Patient Rashel [facility] 1.2.840.114 [id number] Univers 00:00:00 00:00:00 Secure Msg Wondiful A Health 350.1.13.10 ity of [place] 4.2.7.2.686 Rod as Olegario?Blea [phone] [address] Medical Office Building 2021-01-04 2021-01-04 Laboratory Only, Ang Db Test [facility] 1.2.8 40.114 [id number] Univers 16:04:01 16:19:01 Only Green, [facility] 350.1.13.10 ity of [place] 4.2.7.2.686 Rod as Olegario?Blea [phone] [facility] [address] Medical Office Building 2021-01-04 2021-01-04 Outpatient R [facility] [id number] Univers 16:15:00 [facility]-01-01 2021-01-01 [facility] 1.2.840.114 [id number] Univers 08:30:23 09:58:30 Visit Wondiful A Health 350.1.13.10 ity of [place] 4.2.7.2.686 Rod as Olegario?Blea [phone] [address] Medical Office [facility] 2021-01-01 2021-01-01 Outpatient R RASHEL [facility] [id number] Univers 08:30:00 08:30:00 WONDIFUL ity o f [facility] 2020-11-29 2020-11-29 Outpatient R CHALINO, [facility] [id number] Univers 12:30:00 12:30:00 [facility] 2020-11-29 2020-11-29 Laboratory Only, Adc Test [facility] 1.2.840. 114 [id number] Univers 11:50:03 12:05:03 Only Gabriela Allred Vik 350.1.13.10 ity of [place] 4.2.7.2.686 [place] [phone] [facility] [address] 2020-11-29 2020-11-29 Orders Doctor DANIEL 1.2.840.114 [id number] Univers 00:00:00 00:00:00 Only Unassigned, MADHU 350.1.13.10 ity of [place] [facility] 4.2.7.2.686 Rod as [phone] [facility] [address] 2020-11-29 2020-11-29 Telephone GarnerDANIEL 1.2.861.185 [id number] Univers 00:00:00 00:00:00 Zakia Cesar MADHU 350.1.13.10 it y of [facility] 4.2.7.2.686 Rod as [phone] [facility] [address] [place] 2020-11-28 2020-11-28 Supervisor Pairing And Inspecting Xi, Adc Lab Main [facility] 1.2.8 40.114 [id number] Univers 11:59:13 12:14:13 Visit Jesu Kiser 350.1.13. 10 ity of [place].7.2.686 [place] Professio [phone] [facility] 353 [facility] 2020-11-28 2020-11-28 Office Rashel [facility] 1.2.840.114 [id number] Univers 10:03:22 10:55:43 Visit Jesu Cesar [facility] 350.1.13.10 ity of [place] 4.2.7.2.686 Rod as Professio [phone] [facility] [address] [place] Office Building One 2020-11-28 2020-11-28 Outpatient R RASHEL [facility] [id number] Univers 10:00:00 10:00:00 WONDIFUL ity o f [facility] 2020-11-09 2020-11-09 Supervisor Pairing And Inspecting Xi, Adc Lab Main [facility] 1.2.8 40.114 [id number] Univers 10:55:20 11:10:20 Visit Jesu Kiser 350.1.13. 10 it[place] of [place].2.7.2.686 [place] Professio [phone] Hi dical [address] 2020-11-09 2020-11-09 Outpatient Jannie KISER, [facility] [id number] [facility] 08:30:00 08:30:00 WONDIFUL ity o f [facility] 2020-11-09 2020-11-09 Orders Doctor DANIEL Cardona.2.840.114 [id number] Univers 00:00:00 00:00:00 Only Unassigned, MADHU 350.1.13.10 ity of [place] [facility] 4..7.2.686 Rod as [phone] [address] 2020-10-13 2020-10-13 Outpatient Bui_Q_WAGDN VFP VFP 114 1030-20 [facility] 12:26:00 12:26:00 [id number] Family Practic e 2020-10-11 2020-10-11 Claudy Grey_T VF [place] - [phone] 0 [facility] 00:00:00 00:00:00 [facility] [id number] Family GreyJaime - Practi edith VELASCO: 31183 VM_HOU_Garladn e Shadow [facility], [address], [place] [address] , Ph. 2020-10-11 2020-10-11 Orders Doctor DANIEL 1.2.840.114 [id number] Univers 00:00:00 00:00:00 Only Unassigned, MADHU 350.1.13.10 ity of [place] [facility] 4.2.7.2.686 Rod as [phone] [address] 2020-10-10 2020-10-10 Outpatient Que_Gene VFP VF [id number] 0-20 Village 02:11:00 02:11:00 [id number] Family Practic e 2020-10-03 2020-10-03 Telephone Team, [facility] DANIEL Duran2.840.114 [id number] [facility] 00:00:00 00:00:00 Health MADHU 350.1.13.10 it y of [facility] 4.2.7.2.686 [place] [phone] [facility] [address] 2020-09-02 2020-09-02 Laboratory Lab, Adc Fam Pob I [facility] 1.2. 840.114 [id number] Univers 09:14:53 09:34:53 Only Sukhdev Odonnell 350.1.13.10 ity of [place] 4.2.7.2.686 Rod as Professio [phone] Hi dical [facility] [address] Office Building One 2020-09-02 2020-09-02 Outpatient R [facility] [id number] Univers 09:20:00 09:20:00 ity of [facility] 2020-08-14 2020-08-14 Outpatient R ZHEN [facility] [id number] Univers 13:40:00 13:40:00 YURIDIA ity of [facility] 2020-08-14 2020-08-14 Laboratory Only, Adc Test [facility] 1.2.840. 114 [id number] Univers 10:39:52 10:54:52 Only Jesu Kiser 350.1.13. 10 ity of [place] 4.2.7.2.686 [facility] [phone] [facility] [address] 2020-07-25 2020-07-25 Orders Doctor SANCHEZ 1.2.840.114 [id number] Univers 00:00:00 00:00:00 Only Unassigned, MADHU 350.1.13.10 ity of [place] [facility] 4.2.7.2.686 Rod as [phone] [facility] [address] 2020-07-25 2020-07-25 Orders Doctor SANCHEZ 1.2.840.114 [id number] 00:00:00 00:00:00 Only Unassigned, MADHU 350.1.13.10 [place] [facility] [id number] [facility] 2020-07-24 2020-07-24 Supervisor Pairing And Inspecting Xi, Adc Lab Main [facility] 1.2.8 40.114 [id number] Univers 14:03:59 14:18:59 Visit Gabriela Allred 350.1.13.10 ity of [place].2.7.2.686 [place] Profess[place] [phone] Hi dical [facility] 353 [facility] 2020-07-24 2020-07-24 Supervisor Pairing And Inspecting Alie Layne [facility] 1..840.114 [id number] 14:03:59 14:18:59 Visit Lab Main [place] 350.1.13.10 [place] 4.2.7.2.[address] Professio [phone] [address] 2020-07-24 2020-07-24 Outpatient Jannie ALLRED, [facility] [id number] Univers 10:00:00 10:00:00 GABRIELA [facility] 2020-07-19 2020-07-19 Outpatient Bui_Q_WAG [facility] [id number] 30-20 Village 06:36:00 06:36:00 [id number] Family Reginald bowser 2020-07-14 2020-07-14 Claudy Grey_T P [place] - [phone] 0 Village 00:00:00 00:00:00 [facility] 191032 Jaime Grey - Prackalyan sharma MD: [id number] VM_HOU_Shad e Shadow [address], [address], [place] [address] , Ph. 2020-06-02 2020-06-02 Outpatient Jannie PARIS, [facility] [id number] Univers 08:00:00 08:00:00 MELANIA [facility] 2020-05-28 2020-05-28 Urgent Provider, Ang [facility]gent [facility] 1.2.840.114 [id number] Univers 17:04:02 17:24:02 Care [facility] 350.1.13.10 ity [facility] 4.2.7.2.686 Rod as Professio [phone] [address] Office Building One 2020-05-28 2020-05-28 Urgent Provider, [facility] 1.2.600.996 [id number] 17:04:02 17:24:02 Care [facility] 350.1.13.10 Care [place] 4.2.7.2.686 Professio [phone] [place] [address] Office Building One 2020-05-28 2020-05-28 Outpatient R BELLE, [facility] [id number] Univers 17:20:00 17:20:00 SUKHDEV ity [facility] 2020-05-15 2020-05-15 Supervisor Pairing And Inspecting Xi, Alie Lab Main [facility] 1.2.8 40.114 [id number] Univers 15:04:50 15:19:50 Visit Rashel, Jesu A Vik 350.1.13. 10 ity [facility] 4.2.7.2.686 [place] Profess[place] [phone] Hi dical [facility] 353 [facility] 2020-05-15 2020-05-15 Supervisor Pairing And Inspecting Alie Layne [facility] 1.2.840.114 [id number] 15:04:50 15:19:50 Visit Lab Main [place] 350.1.13.10 [place] 4.2.7.2.686 Professio [phone] [address] 2020-05-15 2020-05-15 Outpatient R RASHEL, [facility] [id number] Univers 15:00:00 15:00:00 WONDIFUL ity o f [facility] 2020-05-15 2020-05-15 Orders Doctor DANIEL 1.2.840.114 [id number] Univers 00:00:00 00:00:00 Only Unassigned, MADHU 350.1.13.10 ity of [place] [facility] 4.2.7.2.686 Rod as [phone] [address] 2020-05-15 2020-05-15 Orders Doctor DANIEL 1.2.840.114 [id number] 00:00:00 00:00:00 Only Unassigned, MADHU 350.1.13.10 [place] [facility] [id number] 009 2020-05-12 2020-05-12 Outpatient R RAINA, [facility] [id number] Univers 17:00:00 17:00:00 MELANIA [facility] 2020-05-10 2020-05-10 Outpatient R CHALINO, [facility] [id number] Univers 10:00:00 10:00:00 GABRIELA [facility] 2020-05-05 2020-05-05 Laboratory Only, [facility] Test [facility] 1.2.840. 114 [id number] Univers 14:37:30 14:52:30 Only UsharamierzGabriela henriquez 350.1.13.10 [facility] 4.2.7.2.686 [facility] [phone] [place] [address] [address] 2020-05-05 2020-05-05 Laboratory Only, [facility] 1.2.840.114 [id number] 14:37:30 14:52:30 Only Test Vik 350.1.13.10 [place] 4.2.7.2.686 [place] [phone] [facility] 2020-05-05 2020-05-05 Outpatient R [facility] [id number] Univers 14:45:00 14:45:[facility] 2020-04-15 2020-04-15 Outpatient Bui_Q_WAG VFP VFP [id number] 30-20 [facility] 01:55:00 01:55:00 [id number] Family Practic e 2020-04-11 2020-04-11 Claudy Grey_T VFP [place] - 4034671-1 0 Village 00:00:00 00:00:00 [facility] [id number] Jaime Barros - Garth sharma MD: [id number] VM_MERRILLU_Feliz bowser [address] [address] , Ph. 2020-04-10 2020-04-10 Outpatient Que_T VFP VFP [id number] 0-20 [facility] 05:10:00 05:10:00 [id number] Family Practic e 2020-04-04 2020-04-04 Outpatient Bui_Q_WAG VFP VFP [id number] [facility] 11:25:00 11:25:00 [id number] Family Practic e 2020-03-07 2020-03-06 Inpatient FREDERICK Scott, [facility] [id number] [facility] 11:00:00 11:00:00 Mikki 22 [facility] 2020-02-01 2020-02-01 Supervisor Pairing And Inspecting Xi, Alie Lab Main [facility] 1.2.8 40.114 [id number] Univers 08:33:57 08:48:57 Visit Gabriela Allred 350.1.13.10 ity of [place]2.7.2.686 [place] Profess[place] [phone] [address] 2020-02-01 2020-02-01 Supervisor Pairing And Inspecting Alie Layne [facility] 1.2.840.114 [id number] 08:33:57 08:48:57 Visit Lab Main [place] 350.1.13.10 [place] 4.2.7.2.686 Professio [phone] [address] 2020-02-01 2020-02-01 Outpatient R CHALINO [facility] [id number] [facility] 07:30:00 07:30:00 GABRIELA steven [facility] 2020-02-01 2020-02-01 Orders Doctor DANIEL 1.2.840.114 [id number] [facility] 00:00:00 00:00:00 Only Unassigned, MADHU 350.1.13.10 ity of [place] [facility] 4.2.7.2.686 Rod as [phone] [address] 2020-02-01 2020-02-01 Orders Doctor DANIEL 1.2.840.114 [id number] 00:00:00 00:00:00 Only Unassigned, MADHU 350.1.13.10 [place] [facility] [id number] [facility] 2020-01-13 2020-01-13 Nurse Kiser [facility] 1.2.840.114 [id number] 14:54:12 15:28:24 Visit Wondiful A Health 350.1.13.10 [place] 4.2.7.2.686 Professio [phone] [place] [address] Office [facility] 2020-01-13 2020-01-13 Nurse Kiser [facility] 1.2.840.114 [id number] [facility] 14:54:12 15:28:24 Visit Wondiful A Health 350.1.13.10 ity of [place] 4.2.7.2.686 Rod as Professio [phone] [address] Office [facility] 2020-01-13 2020-01-13 Outpatient R RASHEL [facility] [id number] Univers 15:00:00 15:00:00 WONDIFUL ity o f [facility] 2020-01-05 2020-01-05 [facility] 1.2.000.768 [id number] Univers 10:45:00 23:59:00 Encounter Wondiful A [place] 350.1.13.10 ity of [place] 4.2.7.2.686 [place] [facility] [phone] [facility] [address] [place] 2020-01-05 2020-01-05 [facility] [id number] Univers 00:00:00 00:00:00 WONDIFUL ity o f [facility] 2020-01-05 2020-01-05 Orders Doctor DANIEL 1.2.840.114 [id number] Univers 00:00:00 00:00:00 Only Unassigned, MADHU 350.1.13.10 ity of [place] [facility] 4.2.7.2.686 Rod as [phone] [facility] [address] [place] 2020-01-03 2020-01-03 [facility] 1.2.840.114 [id number] 13:16:48 14:12:27 Visit Wondiful A Health 350.1.13.10 [place] 4.2.7.2.686 Professio [phone] nal [facility] Office Building One 2020-01-03 2020-01-03 Office [facility] 1.2.840.114 [id number] Univers 13:16:48 14:12:27 Visit Wondiful A Health 350.1.13.10 ity of [place] 4.2.7.2.686 Rod as Professio [phone] Hi dical [facility] [address] [place] Office Building One 2020-01-03 2020-01-03 Outpatient R RASHEL [facility] [id number] Univers 13:30:00 13:30:00 WONDIFUL ity o f [facility] 2019-12-29 2019-12-29 Outpatient STEPHANIE Mullen [id number] [facility] 12:00:00 12:00:00 Jeanine [facility] 2019-12-22 2019-12-22 Outpatient ANG ESTRADA [facility] [id number] Univers 14:45:00 14:45:00 ity of [facility] 2019-12-22 2019-12-22 Supervisor Pairing And Inspecting 2, Adc Lab [facility] 1.2.840.114 [id number] Univers 13:07:36 13:22:36 Visit Ang Schilling 350.1.13.10 it[place] of [place] 4.2.7.2.686 [place] Profess[place] [phone] Hi dical [address] 2019-12-22 2019-12-22 Orders Doctor DANIEL 1.2.840.114 [id number] Univers 00:00:00 00:00:00 Only Unassigned, MADHU 350.1.13.10 ity of [place] [facility] 4.2.7.2.686 Rod as [phone] [address] 2019-11-21 2019-11-21 Out[facility] [id number] Univers 20:00:00 20:00:00 NONA ity [facility] 2019-11-19 2019-11-19 Outpatient [facility] [id number] Univers 07:15:00 07:15:00 ZAKIA ity [facility] 2019-11-19 2019-11-19 Orders Doctor DANIEL 1.2.840.114 [id number] Univers 00:00:00 00:00:00 Only Unassigned, MADHU 350.1.13.10 ity of [place] [facility] 4.2.7.2.686 Rod as [phone] [address] 2019-11-04 2019-11-04 Outpatient [facility]stor[facility] [id number] [facility] 07:00:00 07:00:00 Jeanine 70 [facility] [place] 2019-10-28 2019-10-28 Outpatient EL Néstor, [facility] J[facility] [id number] [facility] 12:00:00 12:00:00 Jeanine 90 [facility] [place] 2019-10-14 2019-10-14 Outpatient R [facility] [id number] Univers 08:00:00 08:00:00 ity [facility] 2019-10-14 2019-10-14 Telephone DANIEL Francis.2.840.114 [id number] Univers 00:00:00 00:00:00 Den MADHU 350.1.13.10 it y of HOSPITAL 4.2.7.2.686 Rod as [phone] [facility] [address] [place] 2019-10-12 2019-10-12 Urgent Pob1, Acute Care Clinic [facility] 1. 2.840.114 [id number] Univers 13:16:55 13:36:55 Care Yuridia Arriola 350.1.13.10 ity of [place] 4.2.7.2.686 Rod as Professio [phone] Hi dical nal [address] [place] Office Building One 2019-10-12 2019-10-12 Outpatient R [facility] [id number] Univers 13:20:00 13:20:00 ity of [facility] 2019-07-21 2019-07-21 Telephone Rashel [facility] 1.2.840.114 [id number] [facility] 00:00:00 00:00:00 Jesu Chery 350.1.13.10 ity of [place] 4.2.7.2.686 [place] [phone] Hi dical nal 044 [facility] 2019-07-20 2019-07-20 Orders Doctor SANCHEZ 1.2.840.114 [id number] Univers 00:00:00 00:00:00 Only Unassigned, MADHU 350.1.13.10 ity of [place] [facility] 4.2.7.2.686 Rod as [phone] [facility] [address] [place] 2019-05-27 2019-05-27 Supervisor Pairing And Inspecting Xi, Alie Lab Main [facility] 1.2.8 40.114 [id number] Univers 08:50:43 09:05:43 Visit Galo Baez 350.1.13 .10 ity of [place] 4.2.7.2.686 [place] [phone] Hi dical nal 353 [facility] 2019-05-27 2019-05-27 Outpatient R LEO [facility] [id number] Univers 08:45:00 08:45:00 GALO steven [facility] 2019-05-27 2019-05-27 Orders Doctor SANCHEZ 1.2.840.114 [id number] Univers 00:00:00 00:00:00 Only Unassigned, MADHU 350.1.13.10 ity of [place] [facility] 4.2.7.2.686 Rod as [phone] [address] 2019-05-18 2019-05-18 Office [facility] 1.2.840.114 [id number] Univers 11:12:41 11:41:53 Visit Wondiful A Health 350.1.13.10 ity of [place] 4.2.7.2.686 Rod as Professio [phone] Hi dical nal 044 [facility] 2019-05-06 2019-05-06 Supervisor Pairing And Inspecting 2, Adc Lab [facility] 1.2.840.114 [id number] Univers 15:35:30 15:50:30 Visit PrattvilleJesu A [place] 350.1.13. 10 ity of [place] 4.2.7.2.686 [place] Profess[place] [phone] [facility] 353 [facility] 2019-05-06 2019-05-06 [facility] [id number] Univers 15:45:00 15:45:00 WONDIFUL ity o f [facility] 2019-05-06 2019-05-06 Telephone [facility] 1.2.840.114 [id number] Univers 00:00:00 00:00:00 W[facility]iful A Health 350.1.13.10 ity of [place] 4.2.7.2.686 Rod as Professio [phone] Hi dic[address] Office [facility] 2019-05-06 2019-05-06 Orders Doctor DANIEL 1.2.840.114 [id number] Univers 00:00:00 00:00:00 Only Unassigned, MADHU 350.1.13.10 ity of [place] [facility] 4.2.7.2.686 Rod as [phone] [address] 2019-05-04 2019-05-04 Office [facility] 1.2.840.114 [id number] Univers 16:21:00 16:21:00 Visit W[facility]iful A Health 350.1.13.10 ity of [place] 4.2.7.2.686 Rod as Professio [phone] [address] Office Building One 2019-02-23 2019-02-23 Outpatient R RADIOLOGY [facility] [id number] Univers 12:11:06 23:59:00 ity of [facility] 2019-02-10 2019-02-10 Angélica [place] - [address] [place] 00:00:00 00:00:00 MD Nathan: Discovery [address] [facility] [place], [place] [address], Ot[place], [place] [address] , Ph. 2019-02-05 2019-02-05 Outpatient R RASHEL [facility] [id number] Univers 12:30:00 12:30:00 WONDIFUL ity o f [facility] 2018-12-22 2018-12-22 [facility] [id number] Univers 12:01:47 23:59:00 Encounter Wondiful A [place] [id number] ity of [place] 4.2.7.2.686 [place] [facility] [phone] [facility] [address] 2018-12-22 2018-12-22 Office Rashel [facility] [id number] Univers 10:59:24 11:43:56 Visit Wondiful A Health 350.1.13.10 ity of [place] 4.2.7.2.686 Rod as Professio [phone] [address] Office [facility] One 2018-12-22 2018-12-22 Letter Rashel [facility] [id number] Univers 00:00:00 00:00:00 (Out) Wondiful A [facility] [id number] ity [place] 4.2.7.2.686 Rod as Professio [phone] [address] Office Building One 2018-12-10 2018-12-10 Office Rashel [facility] 1.2.840.114 [id number] Univers 10:58:48 11:35:03 Visit Wondiful A Health 350.1.13.10 ity of [place] 4.2.7.2.686 Rod as Professio [phone] [facility] [address] One 2018-12-10 2018-12-10 Orders Doctor DANIEL [id number] Univers 00:00:00 00:00:00 Only Unassigned, MADHU 350.1.13.10 ity of [facility] 4.2.7.2.686 Rod as [phone] [facility] [address] 2018-11-17 2018-11-17 Supervisor Pairing And Inspecting 1, [facility] 1.2.840.114 [id number] [facility] 12:51:29 13:06:29 Visit Galo Baez Hardik Vik 350.1.13 .10 ity of [place] 4.2.7.2.686 [place] [facility] [phone] [facility] [address] 2018-11-17 2018-11-17 Orders Doctor DANIEL 1.2.840.114 [id number] Univers 00:00:00 00:00:00 Only Unassigned, MADHU 350.1.13.10 ity of [facility] 4.2.7.2.686 Rod as [phone] [address] Results Test Description Test Time Test Comments Results Result Comments Source Hemoglobin A1c measurement device panel 2022-02-05 13:43:31 Test Item Value Reference Range Interpretation Comme nts Hemoglobin A1c/Hemoglobin.total in Blood (test code = 4548-4) 8.2 % 5.7-6.4 [facility] PracticeGlucose [Mass/volume] in Capillary [id number] 13:39:45 Test Item Value Reference Range Interpretation Comments Blood Glucose: mg/dl (test code = Blood 103 Glucose: mg/dl) [facility] PracticeGlucose [Mass/volume] in Capillary [id number] 16:22:01 Test Item Value Reference Range Interpretation Comments Blood Glucose: mg/dl (test code = Blood 107 Glucose: mg/dl) [facility] PracticeGlucose [Mass/volume] in Capillary [id number] 16:22:01 Test Item Value Reference Range Interpretation Comments Blood Glucose: mg/dl (test code = Blood 107 Glucose: mg/dl) [facility] [id number] 10:43:27 Test Item Value Reference Range Interpretation Comments Hemoglobin A1C Fingerstick: (test code 7.0 = Hemoglobin A1C Fingerstick:) [facility]] in Capillary [id number] 10:39:53 Test Item Value Reference Range Interpretation Comments Blood Glucose: mg/dl (test code = Blood 256 Glucose: mg/dl) [facility] [id number] 15:03:04 Test Item Value Reference Range Interpretation Comments Hemoglobin A1C Fingerstick: (test code 8.1 = Hemoglobin A1C Fingerstick:) [facility]] in Capillary [id number] 15:02:56 Test Item Value Reference Range Interpretation Comments Blood Glucose: mg/dl (test code = Blood 136 Glucose: mg/dl) [facility],[id number] 16:42:00 Test Item Value Reference Range Interpretation Comments ENDOMETRIUM,BIOPSY (test code = ENDOMETBX) RUN DATE: 03/09/20 [facility] PAGE 1 RUN TIME: 1751 Specimen Inquiry RUN USER: INTERFACE PATIENT: SIDNEY ROBERTSON LOC: U #: [id number] AGE/SX: 29/F ROOM: [facility] RE03/07/20REG DR: Mikki Scott MD : 88 BED: A DIS: 03/08/20 STATUS: DIS Jack TLOC: SPEC #: [id number] RECD: 03/08/20 STATUS: CHELSEA HAWKINS #: [id number] EARLE: 03/08/20- SUBM DR: Mikki Scott MD ENTERED: 03/08/20 SP TYPE: ENDOMETBX OTHR DR: ORDERED: LEVEL IV CODES: A77123 - ENDOMETRIUM, NO PROCEDURES: LEVEL IV (Incomplete) [...] - no significant pathologic alteration CPT code(s): 31553 x6, 93504 [facility] CONTINUED ON NEXT PAGE RUN DATE: 03/09/20 [facility] PAGE 2 RUN TIME: 1751 Specimen Inquiry RUN USER: INTERFACE SPEC #: [id number] PATIENT: SIDNEY ROBERTSON #[id number] (Continued) GROSS DESCRIPTION ANATOMIC SOURCE OF TISSUE [...] with fimbriae. Sectioning reveals a pinpoint lumen. Payroll Representative sections are submitted as follows: CONTINUED ON NEXT PAGE RUN DATE: 03/09/20 [facility] PAGE 3 RUN TIME: 175 Specimen Inquiry RUN USER: INTERFACE SPEC #: [id number] PATIENT: SIDNEY ROBERTSON #[id number] (Continued) GROSS DESCRIPTION (Continued) G1 - serosal adhesions and fatty tissue G2 - anterior cervix G3 - posterior cervix G4 - anterior endometrium G5 - posterior endometrium G6 - right fallopian tube G7 - left fallopian tube michelle 03/08/20 Signed Mariam Aparicio MD 03/09/20 1642 END OF REPORT CBC W/AUTO [id number] 06:58:00 Test Item Value Reference Range Interpretation [...] REQUIRED (test NORMAL NORMAL code = PLTMR) [id number] 06:50:00 Test Item Value Reference Range Interpretation Comments GLUBED (test code = GLUBED) 130 mg/dL 65-110 H [id number] 23:39:00 Test Item Value Reference Range Interpretation Comments GLUBED (test code = GLUBED) 266 mg/dL 65-110 H [id number] 17:06:00 Test Item Value Reference Range Interpretation Comments GLUBED (test code = GLUBED) 219 mg/dL 65-110 H [id number] 14:17:00 Test Item Value Reference Range Interpretation Comments GLUBED (test code = GLUBED) 135 mg/dL 65-110 H [id number] 09:59:00 Test Item Value Reference Range Interpretation Comments GLUBED (test code = GLUBED) 110 mg/dL 65-110 N AG HEPATITIS B [id number] 14:47:00 Test Item Value Reference Range Interpretation Comments AG HEPATITIS B SURFACE (test code NONREACTIVE NONREACTIVE = HBSAG) IS CONSENT FORM SIGNED FOR HIV TESTING? YAB HEPATITIS C [id number] 14:47:00 Test Item Value Reference Range Interpretation Comments AB HEPATITIS C (test code = NONREACTIVE NONREACTIVE HCVAB) SIGNAL TO CUTOFF (test code = 0.09 <0.80 N CUTOFF) IS CONSENT FORM SIGNED FOR HIV TESTING? YAB HIV 1 14:47:00 Test Item Value Reference Range Interpretation Comments AB HIV 1 2 (test NONREACTIVE NONREACTIVE Done by [facility] code = RAP52RE) 4th Gen HIV Ag/Ab Combo Screen IS CONSENT FORM SIGNED FOR HIV TESTING? YAG HEPATITIS B [id number] 14:15:00 Test Item Value Reference Range Interpretation Comments AG HEPATITIS B SURFACE (test code NONREACTIVE NONREACTIVE = HBSAG) IS CONSENT FORM SIGNED FOR HIV TESTING? ISIDROB HEPATITIS C [id number] 14:15:00 Test Item Value Reference Range Interpretation Comments AB HEPATITIS C (test code = HCVAB) NONREACTIVE SIGNAL TO CUTOFF (test code = CUTOFF) <0.80 IS CONSENT FORM SIGNED FOR HIV TESTING? YAB HIV 1 14:15:00 Test Item Value Reference Range Interpretation Comments AB HIV 1 2 (test code = OYE17CT) NONREACTIVE IS CONSENT FORM SIGNED FOR HIV TESTING? YURINALYSIS [id number] 14:14:00 Test Item Value Reference Range Interpretation [...] URINE SAMPLE: CLEAN CATCHCOVID 19 Asymptomatic IH [id number] 13:50:00 Test Item Value Reference Range Interpretation [...] and/o r diagnosis of CO VID-19 under Jaxujaj54 4(b)(1) of the Act, 21 U.S .C. 360bbb-3(b)(1), unless theauthorizatio n is terminated or r evoked sooner. HCG SERUM [id number] 13:43:00 Test Item Value Reference Range Interpretation Comments HCG SERUM QUAL (test code = HCGQL) NEGATIVE CBC W/AUTO [id number] 13:22:00 Test Item Value Reference Range Interpretation [...] NORMAL NORMAL code = PLTMR) - DUP AB/PEL/SC/[id number] 07:44:00 Patient Name: SIDNEY ROBERTSON Unit No: [id number] EXAMS: CPT CODE: [id number] DUP AB/PEL/SC/LTD 69274 CLINICAL HISTORY: Pelvic pain. COMPARISON: August 21, [...] Margot nt D/T: S: 11/04/2019 (0747) [facility] NAME: SIDNEY ROBERTSON Radiology Department PHYS: Jeanine Wills [address] : 1990 AGE: 29 SEX: F [place], [place] [address] LOC: F.RAD PHONE #: [phone] EXAM DATE: 11/04/2019 STATUS: REG CLI FAX#: [phone] RAD NO: Page 1 Signed Report Patient Name: SIDNEY ROBERTSON Unit No: [id number] EXAMS: CPT CODE: [id number] DUP AB/PEL/SC/LTD 37222 (Continued) [facility] NAME: SIDNEY MCGILL Radiology Department PHYS: JAILENE. Jeanine Palm [address] : 1990 AGE: 29 SEX: F [place], [place] [address] LOC: MargarethRAD PHONE #: [phone] EXAM DATE: 11/04/2019 STATUS: REG CLI FAX #: [phone] RAD NO: Page 2 Signed Report- US PELVIS COMPLETE 2019-11-04 07:44:00 Patient Name: SIDNEY ROBERTSON Unit No: [id number] EXAMS: CPT CODE: [id number] US PELVIS [id number] CLINICAL HISTORY: Pelvic pain. COMPARISON: August 21, [...] Janelle Sam RDMS Probe: Trnscrbd D/ (0744) t.YOS Orig Print D/T: S: 11/04/2019 (0747) [facility] NAME: SIDNEY ROBERTSON Radiology Department PHYS: CIARA Jeanine Palm [address] : 1990 AGE: 29 SEX: F [place], [place] [address] LOC: MargarethRAD PHONE #: [phone] EXAM DATE: 11/04/2019 STATUS: REG CLI FAX#: [phone] RAD NO: Page 1 Signed Report Patient Name: SIDNEY ROBERTSON Unit No: [id number] EXAMS: CPT CODE: [id number] US PELVIS COMPLETE 79798 (Continued) [facility] NAME: SIDNEY ROBERTSON Radiology Department PHYS: [facility].Abram Jeanine Palm [address] : 1990AGE: 29 SEX: [place], [place] [address] LOC: F.RAD PHONE #: [phone] EXAM DATE: 11/04/2019 STATUS: REG CLI FAX #: [phone] RAD NO: Page 2 Signed Report- US TRANSVAGINAL W/PELVIS 2019-11-04 07:44:00 Patient Name: SIDNEY ROBERTSON Unit No: [id number] EXAMS: CPT CODE: [id number] US TRANSVAGINAL W/PELVIS 45386 CLINICAL HISTORY: Pelvic pain. COMPARISON: August 21, [...] Palm MD Technologist: Janelle Sam RDMS Probe: [id number] Trnscrbd D/ (0744) tDHARMESHYOS Orig Print D/T: S: 11/04/2019 (0747) [facility] [place] [facility] NAME: SIDNEY ROBERTSON Radiology Department PHYS: Abram Jeanine Palm [address] : 1990 AGE: 29 SEX: [place], [place] [address] LOC: F.RAD PHONE #: [phone] EXAM DATE: 11/04/2019 STATUS: REG CLI FAX #: [phone] RAD NO: Page 1 Signed Report Patient Name: AMIE ROBERTSONJUAN F Cesar Unit No: [id number] EXAMS: CPT CODE: [id number] US TRANSVAGINAL W/PELVIS 95514 (Continued) [facility] NAME: SIDNEY ROBERTSON Radiology Department PHYS: Jeanine Wills [address] : 1990 AGE: 29 SEX: [place], [place] [address] LOC: F.RAD PHONE #: [phone] EXAM DATE: 11/04/2019 STATUS: REG CLI FAX #: [phone] RAD NO: Page 2 Signed Report
[2022-06-26 22:20] LABS: Absolute Lymphocytes (CBC) 1.7 K/uL (0.7-4.9); Hematocrit 39.7 % (36.0-45.0); Lymphocytes % 18.1 % (15.3-44.8); MCV 93.4 fL (80-100); MPV 10.6 fL (7.6-11.3); RBC Red Blood Cell Count 4.26 M/uL (3.86-4.86)
[2022-06-26 22:26] LABS: SARS-CoV-2 Antigen Rapid Res Negative (Negative)
--- NOTE | 2022-06-26 22:28 | RAD REPORT ---
[facility] DES[facility] 10[facility]17 pm CLINICAL HISTORY: PAIN COMPARISON: 09/21/2021 TECHNIQUE: Portable AP view of the chest. FINDINGS: The lungs are clear. No pneumothorax or effusion. The cardiomediastinal contours are unrem arkable. IMPRESSION: No acute cardiopulmonary process.
[2022-06-26 22:31] LABS: Albumin 3.5 g/dL (3.4-5.0); Bilirubin Total 0.3 mg/dL (0.2-1.0); Potassium 3.6 mmol/L (3.5-5.1); Protein, Total 7.2 g/dL (6.4-8.2)
[2022-06-26] MEDS ORDERED: ONDANSETRON 4 MG/2 ML VIAL ONE (23:07)
[2022-06-26] MEDS ORDERED: NA CHLORIDE 0.9% 1,000 ML ONE (23:07)
[2022-06-26] MEDS ORDERED: KETOROLAC 30 MG/ML INJ ONE (23:07)
[2022-06-27 00:40] LABS: Urine Blood Negative (Negative); Urine Glucose 3+ (Negative); Urine Protein Negative (Negative); Urine Specific Gravity >=1.030 (1.005-1.030); Urine pH 5.5 (5.0-7.0)
[2022-06-27 01:08] LABS: Urine Specific Gravity/Preg >1.030 (1.005-1.030)
[2022-06-27 01:49] VITALS: TEMP 98.3; O2SAT 100
[2022-06-27 01:51] VITALS: BP 96/56
--- NOTE | 2022-06-27 13:34 | RAD REPORT ---
EXAM DESCRIPTION: CT - Abdomen Pelvis W Contrast - 06/27/2022 1:42 am CLINICAL HISTORY: The patient is 32 years old and is Female; ABD PAIN TECHNIQUE: Axial computed tomography images of the abdomen and pelvis with intravenous contrast. S agittal and coronal reformatted images were created and reviewed. This CT exam was performed using one or more of the following dose reduction techniques: automated exposure control, adjustment of t he mA and/or kV according to patient size, and/or use of iterative reconstruction technique. COMPARISON: No relevant prior studies available. FINDINGS: Lung bases: Unremarkable. No mass. No consolidation. ABDOMEN: Liver: Unremarkable. No mass. Gallbladder and bile ducts: Gallbladder is surgically absent. No ductal dilation. Pancreas: Unremarkable. No mass. No ductal dilation. Spleen: Unremarkable. No splenomegaly. Adrenals: Unremarkable. No mass. Kidneys and ureters: Unremarkable. No solid mass. No hydronephrosis. Stomach and bowel: Postsurgical changes in the stomach. No obstruction. No mucosal thickening. PELVIS: Appendix: Suggestion of prior appendectomy. Bladder: Unremarkable. Reproductive: Uterus is not seen. Suggestion of a corpus luteum cyst in the right ovary. ABDOMEN and PELVIS: Intraperitoneal space: Unremarkable. No free air. No significant fluid collection. Bones/joints: No acute fracture. No dislocation. Soft tissues: Unremarkable. Vasculature: Unremarkable. No abdominal aortic aneurysm. Lymph nodes: Unremarkable. No enlarged lymph nodes. IMPRESSION: No acute finding in the abdomen/pelvis. Electronically signed by: Ronald Interiano MD 06/27/2022 12:08 AM COUNSELING SERVICES MANAGER Due to temporary technical issues with the PACS/Fluency reporting system, reports are being signed by the in house radiologists without review as a courtesy to insure prompt reporting. The interpreting radiologist is fully responsible for the content of the report.
--- NOTE | 2022-07-12 15:25 | ER ---
Nurse's Notes [facility] Name: Lilibeth Sharif Age: 32 yrs Sex: Female : 1990 Arrival Date: 06/26/2022 Time: 21:29 Bed DIS5 Private MD: Diagnosis: Upper abdominal pain, unspecified Presentation: 06/26 21:46 Chief complaint: Patient states: she thinks she is having pancreatitis again she bb started having abdominal pain radiating to her back since last night and the pain is getting worse she has vomited x 2 denies diarrhea. Coronavirus screen: At this time, the client does not indicate any symptoms associated with coronavirus-19. Ebola Screen: No symptoms or risks identified at this time. Initial Sepsis Screen: Does the patient meet any 2 criteria? No. Patient's initial sepsis screen is negative. Does the patient have a suspected source of infection? No. Patient's initial sepsis screen is negative. Risk Assessment: Do you want to hurt yourself or someone else? Patient reports no desire to harm self or others. Onset of symptoms was June 25, 2022. 21:46 Method Of Arrival: Ambulatory bb 21:46 Acuity: JAMISON 3 bb Triage Assessment: 21:48 General: Appears in no apparent distress. uncomfortable, Behavior is cooperative, bb anxious. Pain: Complains of pain in abdomen. Neuro: Level of Consciousness is awake, alert, obeys commands, Oriented to person, place, time, situation. Cardiovascular: Capillary refill < 3 seconds Patient's skin is warm and dry. Respiratory: Respiratory effort is even, unlabored, Respiratory pattern is regular. GI: Reports upper abdominal pain, vomiting. Derm: Skin is pink, warm \T\ dry. Musculoskeletal: Circulation, motion, and sensation intact. 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 - Social history:: Smoking status: Patient denies any tobacco usage or history of. Screenin:11 [facility] ED Fall Risk Assessment (Adult) History of falling in the last 3 months, bb including since admission No falls in past 3 months (0 pts) Confusion or Disorientation No (0 pts) Intoxicated or Sedated No (0 pts) Impaired Gait No (0 pts) Score/Fall Risk Level 0 - 2 = Low Risk Oriented to surroundings, Maintained a safe environment. Abuse screen: Denies threats or abuse. Nutritional screening: No deficits noted. Tuberculosis screening: No symptoms or risk factors identified. Assessment: 23:11 Reassessment: No changes from previously documented assessment. Patient is alert, bb oriented x 3, equal unlabored respirations, skin warm/dry/pink. 06/27 00:09 Reassessment: Patient is alert, oriented x 3, equal unlabored respirations, skin bb warm/dry/pink. pt states her blood sugar is dropping and she needs juice Dr Saldana notified pt given juice pt states her pain is gone at this time. 01:06 GI: vc1 Vital Signs: 06/26 21:46 BP 117 / 78; Pulse 84; Resp 18 S; Temp 98.3(O); Pulse Ox 100% on R/A; Weight 77.11 kg bb (R); Height 5 ft. 3 in. (R); Pain 7/10; 06/27 00:13 BP 96 / 56; Pulse 86; Resp 16; Pulse Ox 100% on R/A; bb 06/26 21:46 Body Mass Index 30.11 (77.11 kg, 160.02 cm) bb 06/26 21:46 Pain Scale: Adult bb ED Course: 06/26 21:29 Patient arrived in ED. jj6 21:32 Valerio Saldana MD is Attending Physician. bs3 21:48 Triage completed. bb 21:48 Arm band placed on Patient placed in waiting room, Patient notified of wait time. bb 21:50 Missed attempt(s): 20 gauge in right antecubital area. bc6 22:06 CBC with Diff Sent. bc6 22:06 CMP Sent. bc6 22:06 Lipase Sent. bc6 22:06 SARS-COV-2 Antigen Rapid Sent. bc6 22:06 Lipid Profile Sent. bc6 22:06 Inserted saline lock: 20 gauge in left antecubital area, using aseptic technique. bc6 22:18 XRAY Chest (1 view) In Process Unspecified. EDMS 23:10 Ginna Awad, RN is Primary Nurse. bb 23:11 Patient has correct armband on for positive identification. bb 23:11 IV is patent, is intact. bb 23:52 CT Abd/Pelvis - IV Contrast Only In Process Unspecified. EDMS 03 01:05 No provider procedures requiring assistance completed. IV discontinued, intact, vc1 bleeding controlled, No redness/swelling at site. Pressure dressing applied. Administered Medications: 06/26 23:01 Drug: Ketorolac IVP 15 mg Route: IVP; Site: left antecubital; bb 06/27 01:01 Follow up: Response: Pain is decreased bb 06/26 23:02 Drug: Ondansetron IVP 8 mg Route: IVP; Site: left antecubital; bb 06/27 01:02 Follow up: Response: No adverse reaction 06/26 23:10 Drug: NS 0.9% IV 1000 ml Route: IV; Rate: 1 bolus; Site: left antecubital; bb 06/27 00:00 Follow up: IV Status: Completed infusion; IV Intake: 900ml bb Medication: 06/26 23:11 VIS not applicable for this client. bb Intake: 06/27 00:00 IV: 900ml; Total: 900ml. bb Outcome: 00:53 Discharge ordered by . bs3 01:06 Discharged to home ambulatory. vc1 01:06 Condition: good 01:06 Discharge instructions given to patient, Instructed on discharge instructions, follow up and referral plans. Demonstrated understanding of instructions, follow-up care. 01:06 Patient left the ED. vc1 Signatures: Dispatcher [employer] EDNM Ginna Awad, RHONDA ELLIS bb Glendy Paezj6 Haley Agee RN RN vc1 Valerio Saldana MD MD bs3 Nany Torres 6
--- NOTE | 2022-07-12 15:25 | EDPHYS ---
Physician Documentation [facility] Name: Lilibeth Sharif Age: 32 yrs Sex: Female : 1990 Arrival Date: 06/26/2022 Time: 21:29 Bed DIS5 Private MD: ED Physician Valerio Saldana HPI: 06/26 21:41 This 32 yrs old Female presents to ER via Unassigned with complaints of bs3 Abdominal Pain, Nausea/Vomiting. 21:41 32yo hx of type 1 dm, pancreatitis, sp tashi pw luq pain since yesterday, assoc nausea bs3 and vomiting. +chills, no fever, she has pain that is causing her to feel sob, not otherwise no sob. No chest pain, +slight cough, no urinary complaints or lower abdominal pain, pain is sharp, radiating toward back. 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 - Social history:: Smoking status: Patient denies any tobacco usage or history of. ROS: 21:41 Constitutional: Negative for fever, chills bs3 21:41 All other systems are negative. Exam: 21:41 Constitutional: This is a well developed, well nourished patient who is awake, alert, bs3 and appears in moderate distress secondary to pain. Head/Face: Normocephalic, atraumatic. Eyes: Pupils equal round and reactive to light, extra-ocular motions intact. Lids and lashes normal. ENT: mmm, no posterior phyarngeal erythema Neck: Trachea midline, no thyromegaly, no neck stiffness Chest/axilla: Normal chest wall appearance and motion. Nontender with no deformity. No lesions are appreciated. Cardiovascular: Regular rate and rhythm with a normal S1 and S2. symmetric pulses in upper extremities Respiratory: Lungs have equal breath sounds bilaterally, clear to auscultation, no respiratory distress Abdomen/GI: Soft, non-tender, no rebound or guarding Back: No spinal tenderness. No costovertebral tenderness. Full range of motion. MS/ Extremity: Pulses equal, no cyanosis. Neurovascular intact. Full, normal range of motion. Neuro: Awake and alert, GCS 15, oriented to person, place, time, and situation. Cranial nerves II-XII grossly intact. Motor strength 5/5 in all extremities. Sensory grossly intact. Psych: Awake, alert, with orientation to person, place and time. Behavior, mood, and affect are within normal limits. Vital Signs: 21:46 BP 117 / 78; Pulse 84; Resp 18 S; Temp 98.3(O); Pulse Ox 100% on R/A; Weight 77.11 kg bb (R); Height 5 ft. 3 in. (R); Pain 7/10; 06/27 00:13 BP 96 / 56; Pulse 86; Resp 16; Pulse Ox 100% on R/A; bb 06/26 21:46 Body Mass Index 30.11 (77.11 kg, 160.02 cm) bb 06/26 21:46 Pain Scale: Adult bb MDM: 06/26 21:33 Patient medically screened. bs3 21:41 Differential diagnosis: Nonspecific abd pain, gastritis, cholecystitis, pancreatitis, bs3 viral gastroenteritis, gastroenteritis. Data reviewed: vital signs, nurses notes, old medical records, Patient previously admitted in September for DKA and then discharged and then returned several days later and admitted for pancreatitis with lipase over 1000. 21:44 External Records Reviewed: Inpatient record: see above. bs3 23:32 ED course: pt still in pain, lipase normal, will do ct, will check urine. . bs3 06/27 00:19 ED course: CT negative for acute pathology as interpreted by radiology unclear etiology bs3 for patient's pain but she remained pain-free after her initial treatment pending UA patient is stable for discharge I do not suspect ischemia a dissection or a cardiac etiology for her pain. 00:52 ED course: Work-up nondiagnostic discussed with patient other possible etiologies such bs3 as dissection, ischemia, gastric/duodenal given patient remained asymptomatic here will discharge home return precautions given. 06/26 21:41 Order name: CBC with Diff; Complete Time: 23:05 bs3 06/26 21:41 Order name: CMP; Complete Time: 23:05 bs3 06/26 21:41 Order name: Lipase; Complete Time: 23:05 bs3 06/26 21:41 Order name: SARS-COV-2 Antigen Rapid; Complete Time: 23:05 bs3 06/26 21:41 Order name: Lipid Profile; Complete Time: 23:05 bs3 06/27 00:41 Order name: Urine --Ancillary (enter results) rv1 06/27 00:41 Order name: Urine Dipstick-Ancillary; Complete Time: 00:52 EDMS 03 21:41 Order name: XRAY Chest (1 view); Complete Time: 23:05 bs3 06/26 23:23 Order name: CT Abd/Pelvis - IV Contrast Only bs3 06/26 21:41 Order name: IV Saline Lock; Complete Time: 22:06 bs3 06/26 21:41 Order name: Labs collected and sent; Complete Time: 22:06 bs3 06/26 23:23 Order name: Urine Dipstick-Ancillary (obtain specimen); Complete Time: 00:40 bs3 Administered Medications: 06/26 23:01 Drug: Ketorolac IVP 15 mg Route: IVP; Site: left antecubital; 06/27 01:01 Follow up: Response: Pain is decreased 06/26 23:02 Drug: Ondansetron IVP 8 mg Route: IVP; Site: left antecubital; 06/27 01:02 Follow up: Response: No adverse reaction 06/26 23:10 Drug: NS 0.9% IV 1000 ml Route: IV; Rate: 1 bolus; Site: left antecubital; 06/27 00:00 Follow up: IV Status: Completed infusion; IV Intake: 900ml Disposition Summary: 06/27/22 00:53 Discharge Ordered Location: Home bs3 Problem: new bs3 Symptoms: are resolved bs3 Condition: Stable bs3 Diagnosis - Upper abdominal pain, unspecified bs3 Followup: bs3 - With: Private Physician - When: 48 Hours - Reason: Re-evaluation by your physician Discharge Instructions: - Discharge Summary Sheet bs3 - Abdominal Pain, Adult, [id number] bs3 Forms: - Work release form bs3 - Medication Reconciliation Form bs3 - Thank You Letter bs3 - Antibiotic Education bs3 - Prescription Opioid Use bs3 Signatures: Dispatcher [employer] Ginna Rubio RN RN bb Stein, Brandon, MD MD bs3
== END 2022-06-27 01:06 | disposition home or self-care (01) ==
LOC: ER 21:26
DX: R10.12 Left upper quadrant pain (principal); E11.9 Type 2 diabetes mellitus without complications; Z96.41 Presence of insulin pump (external) (internal); Z79.4 Long term (current) use of insulin; Z20.822 Contact with and (suspected) exposure to COVID-19
CPT/HCPCS: 96361; 85025; 36415; 81025; 80061; 81003; 83690; 80053; 74177; 71045; 96375; 96374; 99284; 87811; Q9967; J2405; J7030

== ENCOUNTER 2023-07-22 13:39 | Emergency (ER) | payer BC ==
--- OUTSIDE RECORDS SUMMARY | 2023-07-22 13:45 | XMS REPORT | Continuity of Care Document ---
Author Name Unknown Address [address] [facility] [address] [place] [address] [facility] thconnect Address [address] [facility] [place] [address] Care Team Providers Care Arc Trimmer Name Role Phone Marsha Calvo Primary Care Physician + [phone] [email or web address] Attending Clinician Unavailable Only, Ang Db Test Attending Clinician Unavailabl e Unknown, Attending Attending Clinician Unavailab Monique Erickson Attending Clinician [phone] MONIQUE GARCIA Attending Clinician Unavailable YURIDIA ARRIOLA Attending Clinician Unavailable Doctor Unassigned, Rew Attending Clinician U adriannaailgualberto Pob, [facility] Main Attending Clinician UnavailGabriela Camarillo MD Attending Clinician [phone] GABRIELA LUONG Attending Clinician UnavailMARSHA Brandt Attending Clinician Unavailable Yuridia Diaz Attending Clinician + [phone] Marsha Calvo Attending Clinician + [phone] Erlinda Attending Clinician Unavailable Jose Roberto Oreilly Attending Clinician [phone] JOSE ROBERTO PRADO Attending Clinician Unavailable CAMRON PARR Attending Clinician Unavailable Keshav DRAKE, Camron Attending Clinician [phone] Lab, Ang - Db Attending Clinician Unavailable Ramon VELASCO, Bradly Attending Clinician + [phone] Jesu Kiser MD Attending Clinician +[phone] JESU KISER Attending Clinician Unavaila ble Only, Adc Test Attending Clinician Unavailable Mary Hernandez RN Attending Clinician Unavailab Sukhdev Goyal Attending Clinician [phone] Zakia Barrera MD Attending Clinician [phone] Team, [facility] Attending Tray n Unavailable Lab, Adc Fam Pob I Attending Clinician Unavailab MELANIA Camacho Attending Clinician Unavailable Provider, [facility] Attending Clinician Un available SUKHDEV BENDER Attending Clinician Unavailable Mikki Scott Attending Clinician Unavailable Jeanine Palm Attending Clinician Unavaila ANG Mckinney Attending Clinician Unavailable 2, [facility] Lab Attending Clinician Unavailable Ang Schilling MD Attending Clinician [phone] NONA ROMERO Attending Clinician Unavailable ZAKIA BARRERA Attending Clinician Unavailable Tito ELLIS, Den Attending Clinician Unavailab le Pob1, [facility] Attending Clinician UnaGalo Candelaria MD Attending Clinician [phone] GALO BAILEY Attending Clinician Unavail able RADIOLOGY Attending Clinician Unavailable 1, Adc Lab Attending Clinician Unavailable SulemanQ_WAGDNU Admitting Clinician Unavailable Erlinda Admitting Clinician Unavailable CAMRON PARR Admitting Clinician Unavailable RIYA NAILS Admitting Clinician Unavailable Physician, No Primary or Family Admitting Clinic chely Unavailable ANGÉLICA EVANS Admitting Clinician Unavailable Payers Payer Name Policy Type Policy Number Effective Date Expirati on Date Source [place] [id number] 2020 00:00:00 Problems Condition Name Condition Details Condition Category Status Onset Date Resolution Date Last Treatment Date Treating Clinician Comments Source Bronchitis Bronchitis Disease Active 9-06 00:00: 00 [facility] Wheezing Wheezing Disease Active 9-06 00:00: 00 [facility] Cough Cough Disease Active 9-06 00:00: 00 [facility] History of pancreatit is History of pancreatit is Disease Active 6-15 00:00: 00 [facility] Type 1 diabetes mellitus Type 1 Diabetes Mellitus Problem Active 3-05 00:00: 00 [facility] Dizziness Dizziness Disease Active 2-04 00:00: 00 [facility] Dyspnea on exertion Dyspnea on exertion Disease Active 2-04 00:00: 00 [facility] Fatigue, unspecifie d type Fatigue, unspecifie d type Disease Active 2-04 00:00: 00 [facility] Clammy skin Clammy skin Disease Active 2-04 00:00: 00 [facility] Rhinorrhea Rhinorrhea Disease Active 2-04 00:00: 00 [facility] Viral syndrome Viral syndrome Disease Active 2-04 00:00: 00 [facility] Obesity Obesity Problem Active 6-23 00:00: 00 [facility] Clinical finding Clinical Finding Problem Active 7- 00:00: 00 [facility] Finding related to sleep Finding Related to Sleep Problem Active 1-30 00:00: 00 [facility] Anxiety and depression Anxiety and depression Disease Active 1-14 00:00: 00 [facility] Psoriasis Psoriasis Disease Active 2017-04 1-01 00:00: 00 [facility] Overweight Overweight Disease Active 6-22 00:00: 00 [facility] Iron deficiency anemia due to chronic blood loss Iron deficiency anemia due to chronic blood loss Disease Active 5-28 00:00: 00 [facility] Hypoglycem ia Hypoglycem ia Problem Active 2016-04 00:00: 00 [facility] Vitamin D deficiency Vitamin D Deficiency Problem Active 2016-04 00:00: 00 [facility] Clinical finding Clinical Finding Problem Active 2016-04 00:00: 00 [facility] Clinical finding Clinical Finding Problem Active 2016-04 00:00: 00 [facility] Anemia Anemia Disease Active 2016-04 00:00: 00 [facility] longterm current use of insulin [employer] principal current use of insulin Disease Active 2016-04 00:00: 00 [facility] Megaloblas tic anemia due to vitamin B12 deficiency Megaloblas tic anemia due to vitamin B12 deficiency Disease Active 2016-04 00:00: 00 [facility] Presence of insulin pump Presence of insulin pump Disease Active 2016-04 00:00: 00 [facility] SVT (supravent ricular tachycardi a) SVT (supravent ricular tachycardi a) Disease Active 3-21 00:00: 00 Overview: Formattin g of this note might be different from the original. Dr. Pendleton ([facility]), followed q6mos [facility] Diabetic keto-acido sis Diabetic keto-acido sis Disease Active 9-15 00:00: 00 [facility] Sinus tachycardi a Sinus tachycardi a Disease Active 9-14 00:00: 00 [facility] Insomnia Insomnia Disease Active 3-27 00:00: 00 [facility] Vitamin D deficiency Vitamin D deficiency Disease Active 8-19 00:00: 00 Overview: Formattin g of this note might be different from the original. 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 Claudy [facility] Diabetes mellitus Diabetes mellitus Disease Active 06-13 00:00: 00 Overview: Formattin g of this note might be different from the original. 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 Claudy [facility] Type 1 diabetes mellitus Type 1 diabetes mellitus Disease Active 12-12 00:00: 00 [facility] Sinusitis Sinusitis Problem Active [facility] Posterior rhinorrhea Posterior Rhinorrhea Problem Active [facility] Nasal obstructio n Nasal Obstructio n Problem Active [facility] Headache Headache Problem Active [facility] Allergies, Adverse Reactions, Alerts Allergy Name Allergy Type Status Severity Reaction(s) Onset Date Inactive Date Treating Clinician Comments Source DULAGLUT KAREN DRUG INGREDI Active Unknown-Cmnt 2-15 00:00: 00 [facility] FLUCONAZ OLE DRUG INGREDI Active Hives 0 2-15 00:00: 00 [facility] Dulaglut karen Drug Allergy Active Unknown - See comments 2-15 00:00: 00 [facility] Fluconaz ole Drug Allergy Active Hives 0 2-15 00:00: 00 [facility] Sulfa (Sulfona mide Antibiot ics) DA Active U 2019-04 00:00: 00 [facility] morphine DA Active U 2019-04 00:00: 00 [facility] hydrocod one DA Active U 2019-04 00:00: 00 [facility] fluconaz ole DA Active U 2019-04 00:00: 00 [facility] tramadol DA Active U 2019-04 00:00: 00 [facility] Sulfa (Sulfona mide Antibiot ics) DA Active U ITCHING 2019-04 00:00: 00 [facility] morphine DA Active U SHORTNESS OF BREATH 2019-04 00:00: 00 [facility] hydrocod one DA Active U ITCHING 2019-04 00:00: 00 [facility] fluconaz ole DA Active U HIVES 2019-04 00:00: 00 [facility] tramadol DA Active U ITCHY 2019-04 00:00: 00 [facility] adhesive DA Active MO 0 20 00:00: 00 [facility] adhesive DA Active MO HIVES 0 20 00:00: 00 [facility] Sulfa (Sulfona mide Antibiot ics) DA Active MO 0 18 00:00: 00 [facility] morphine DA Active SV 2016-0 18 00:00: 00 [facility] hydrocod one DA Active MO 0 18 00:00: 00 [facility] tramadol DA Active MO 0 18 00:00: 00 [facility] Sulfa (Sulfona mide Antibiot ics) DA Active MO ITCHING 0 18 00:00: 00 [facility] morphine DA Active SV SHORTNESS OF BREATH 0 18 00:00: 00 [facility] hydrocod one DA Active MO ITCHING 0 18 00:00: 00 [facility] tramadol DA Active MO ITCHING 0 18 00:00: 00 [facility] Sulfa (Sulfona mide Antibiot ics) Propensi ty to adverse reaction s Active Itching 07-15 00:00: 00 [facility] SULFA (SULFONA MIDE ANTIBIOT ICS) Drug Class Active ITCHING 327 00:00: 00 [facility] Adhesive Propensi ty to adverse reaction s Active Hives 0 2 00:00: 00 [facility] ADHESIVE Drug Class Active Hives 0 06-17 00:00: 00 [facility] TRAMADOL DRUG INGREDI Active ITCHING 0 05-28 00:00: 00 [facility] Tramadol Propensi ty to adverse reaction s Active Itching 0 05-28 00:00: 00 [facility] HYDROCOD ONE DRUG INGREDI Active ITCHING 09-18 00:00: 00 [facility] Hydrocod one Drug Allergy Active Hives 09-18 00:00: 00 [facility] Hydrocod one Propensi ty to adverse reaction s Active Itching 09-18 00:00: 00 [facility] MORPHINE DRUG INGREDI Active ITCHING 12-12 00:00: 00 [facility] Morphine Propensi ty to adverse reaction s Active Shortness of Breath 12-12 00:00: 00 [facility] Morphine Allergy to substanc e Active [facility] Tramadol Allergy to substanc e Active [facility] Hydrocod one Allergy to substanc e Active Hives [facility] MORPHINE SULFATE Allergy to substanc e Active [facility] Sulfacet amide Allergy to substanc e Active Hives [facility] TRAMADOL HCL Allergy to substanc e Active Hives [facility] Trulicit y Allergy to substanc e Active [facility] Diflucan Allergy to substanc e [facility] Social History Social Habit Start Date Stop Date Quantity Comments [facility] Alcohol Frequency [facility] History SDOH Alcohol Std Drinks [facility] History SDOH Alcohol Binge [facility] Exposure to SARS-CoV-2 (event) 2022-08-24 00:00:00 2022-09-03 14:30:[address] [facility] History of Social function 2022-09-03 00:00:00 2022-09-03 00:00:[address] [facility] Alcohol intake 2022-09-03 00:00:00 2022-09-03 00:00:00 .14 /d [facility] Tobacco use and exposure 2021-12-25 00:00:00 2021-12-25 00:00:00 Smokeless tobacco non-user [facility] Alcohol Comment 2014-07-15 00:00:00 2014-07-15 00:00:[address] [facility] Sex Assigned At 1990 00:00:00 1990 00:00:[address] [facility] Smoking Status Start Date Stop Date Source Never smoked tobacco [facility] Medications Ordered Medication Name Filled Medication Name Start Date Stop Date Current Medication? Ordering Clinician Indication Dosage Frequency Signature (SIG) Comments Components Source meloxicam 7.5 mg tablet 06-05 00:00: 00 09-03 00:00 :00 No [id number] 7.5mg Take 1 tablet by mouth once daily as needed (back pain). [facility] ketorolac (TORADOL) injection 30 mg 05-30 00:00: 00 05-29 23:15 :00 No [id number] 30mg [facility] lipase-prot ease-amylas e (ZENPEP) 15,000-47,0 00 -63,000 unit CpDR 05-29 16:44: 12 Yes Take by mouth. [facility] albuterol 90 mcg/actuati on inhaler 12-25 00:00: 00 Yes [id number] 2{puff} Inhale 2 Puffs every 6 (six) hours as needed for Wheezing or Shortness of Breath. [facility] AZITHROMYCI N 250 mg tablet 12-25 00:00: 00 09-03 00:00 :00 No [id number] 500MG on day 1, then 250mg days 2-5 [facility] benzonatate 200 mg capsule 12-25 00:00: 00 01-02 04:59 :00 No [id number] 200mg Take 1 capsule by mouth 3 (three) times daily as needed for Cough for up to 7 days. [facility] pantoprazol e 40 mg EC tablet 09-24 00:00: 00 Yes [facility] pantoprazol e 40 mg EC tablet 6 00:00: 00 Yes [facility] WEGOVY 2.4 mg/0.75 mL PnIj SC injection 2 00:00: 00 09-03 00:00 :00 No [facility] WEGOVY 2.4 mg/0.75 mL PnIj SC injection 2 00:00: 00 09-03 00:00 :00 No [facility] T:SLIM X2 Crtg 8 00:00: 00 Yes [facility] TRUSTEEL INFUSION SET 23" ISet 11-23 00:00: 00 Yes [facility] DEXCOM G6 TRANSMITTER Mell 11-23 00:00: 00 Yes [facility] DEXCOM G6 SENSOR Mell 11-23 00:00: 00 Yes [facility] fluticasone propionate 50 mcg/actuati on nasal spray 2 00:00: 00 Yes [id number] 1 spray each nostril twice a day for 5 days then daily [facility] flash glucose sensor (FREESTYLE JARET 14 DAY SENSOR) Kit 15 00:00: 00 Yes [id number] 1{each} 1 Each every 14 (fourteen) days. Use as directed with reader. [facility] amoxicillin 875 mg tablet Take 1 tablet every 12 hours by oral route with meals for 12 days. amoxicillin 875 mg tablet Take 1 tablet every 12 hours by oral route with meals for 12 days. No 1 Q12H amoxicilli n 875 mg tablet Take 1 tablet every 12 hours by oral route with meals for 12 days. [facility] cefdinir 300 mg capsule cefdinir 300 mg capsule No cefdinir 300 mg capsule [facility] Fiasp FlexTouch U-100 Insulin 100 unit/mL (3 mL) subcutaneou s pen Fiasp FlexTouch U-100 Insulin 100 unit/mL (3 mL) subcutaneou s pen No Fiasp FlexTouch U-100 Insulin 100 unit/mL (3 mL) subcutaneo us pen [facility] Tresiba FlexTouch U-200 insulin 200 unit/mL (3 mL) subcutaneou s pen Tresiba FlexTouch U-200 insulin 200 unit/mL (3 mL) subcutaneou s pen No Tresiba FlexTouch U-200 insulin 200 unit/mL (3 mL) subcutaneo us pen [facility] Ventolin HFA 90 mcg/actuati on aerosol inhaler Ventolin HFA 90 mcg/actuati on aerosol inhaler No Ventolin HFA 90 mcg/actuat ion aerosol inhaler [facility] zolpidem 5 mg tablet zolpidem 5 mg tablet No zolpidem 5 mg tablet [facility] DEXCOM G6 CGM DEXCOM G6 CGM No DEXCOM G6 CGM [facility] Dexcom G6 Sensor device Take 3 devices every month by miscell. route. Dexcom G6 Sensor device Take 3 devices every month by miscell. route. No Dexcom G6 Sensor device Take 3 devices every month by miscell. route. [facility] Dexcom G6 Transmitter device Dexcom G6 Transmitter device No Dexcom G6 Transmitte r device [facility] Lyumjev KwikPen U-100 Insulin 100 unit/mL subcutaneou s Give before meals in case of pump failure using ICR 1:5; CF 1:30: TDD 50 Lyumjev KwikPen U-100 Insulin 100 unit/mL subcutaneou s Give before meals in case of pump failure using ICR 1:5; CF 1:30: TDD 50 No Lyumjev KwikPen U-100 Insulin 100 unit/mL subcutaneo us Give before meals in case of pump failure using ICR 1:5; CF 1:30: TDD 50 [facility] Lyumjev U-100 Insulin 100 unit/mL subcutaneou s solution Use daily with insulin pump: TDD 70 Lyumjev U-100 Insulin 100 unit/mL subcutaneou s solution Use daily with insulin pump: TDD 70 No Lyumjev U-100 Insulin 100 unit/mL subcutaneo us solution Use daily with insulin pump: TDD 70 [facility] nitroglycer in 0.4 mg sublingual tablet nitroglycer in 0.4 mg sublingual tablet No nitroglyce rin 0.4 mg sublingual tablet [facility] t:slim X2 subcutaneou s cartridge t:slim X2 subcutaneou s cartridge No t:slim X2 subcutaneo us cartridge [facility] Tresiba FlexTouch U-200 insulin 200 unit/mL (3 mL) subcutaneou s pen GIve 28 units in AM in case of pump failure and increase as directed: TDD 50 Tresiba FlexTouch U-200 insulin 200 unit/mL (3 mL) subcutaneou s pen GIve 28 units in AM in case of pump failure and increase as directed: TDD 50 No Tresiba FlexTouch U-200 insulin 200 unit/mL (3 mL) subcutaneo us pen GIve 28 units in AM in case of pump failure and increase as directed: TDD 50 [facility] TruSteel Infusion Set 23" Take 10 sets every month by miscell. route. TruSteel Infusion Set 23" Take 10 sets every month by miscell. route. No TruSteel Infusion Set 23" Take 10 sets every month by miscell. route. [facility] Accu-Chek Guide test strips Take 5 strips every day by miscell. route for 30 days. Accu-Chek Guide test strips Take 5 strips every day by miscell. route for 30 days. No 5strip( s) Q1D Accu-Chek Guide test strips Take 5 strips every day by miscell. route for 30 days. [facility] Dexcom G6 CGM Dexcom G6 CGM No Dexcom G6 CGM [facility] Dexcom G6 Sensor device Take 3 devices every month by miscell. route. Dexcom G6 Sensor device Take 3 devices every month by miscell. route. No Dexcom G6 Sensor device Take 3 devices every month by miscell. route. [facility] Dexcom G6 Transmitter device Dexcom G6 Transmitter device No Dexcom G6 Transmitte r device [facility] Lyumjev KwikPen U-100 Insulin 100 unit/mL subcutaneou s Give before meals in case of pump failure using ICR 1:5; CF 1:30: TDD 50 Lyumjev KwikPen U-100 Insulin 100 unit/mL subcutaneou s Give before meals in case of pump failure using ICR 1:5; CF 1:30: TDD 50 No Lyumjev KwikPen U-100 Insulin 100 unit/mL subcutaneo us Give before meals in case of pump failure using ICR 1:5; CF 1:30: TDD 50 [facility] Lyumjev U-100 Insulin 100 unit/mL subcutaneou s solution Use daily with insulin pump: TDD 70 Lyumjev U-100 Insulin 100 unit/mL subcutaneou s solution Use daily with insulin pump: TDD 70 No Lyumjev U-100 Insulin 100 unit/mL subcutaneo us solution Use daily with insulin pump: TDD 70 [facility] nitroglycer in 0.4 mg sublingual tablet nitroglycer in 0.4 mg sublingual tablet No nitroglyce rin 0.4 mg sublingual tablet [facility] ondansetron HCl 4 mg tablet ondansetron HCl 4 mg tablet No ondansetro n HCl 4 mg tablet [facility] t:slim X2 subcutaneou s cartridge t:slim X2 subcutaneou s cartridge No t:slim X2 subcutaneo us cartridge [facility] Tresiba FlexTouch U-200 insulin 200 unit/mL (3 mL) subcutaneou s pen GIve 28 units in AM in case of pump failure and increase as directed: TDD 50 Tresiba FlexTouch U-200 insulin 200 unit/mL (3 mL) subcutaneou s pen GIve 28 units in AM in case of pump failure and increase as directed: TDD 50 No Tresiba FlexTouch U-200 insulin 200 unit/mL (3 mL) subcutaneo us pen GIve 28 units in AM in case of pump failure and increase as directed: TDD 50 [facility] TruSteel Infusion Set 23" Take 10 sets every month by miscell. route. TruSteel Infusion Set 23" Take 10 sets every month by miscell. route. No TruSteel Infusion Set 23" Take 10 sets every month by miscell. route. [facility] Wegovy 1 mg/0.5 mL subcutaneou s pen injector Inject 1 mg every week by subcutaneou s route for 28 days. Wegovy 1 mg/0.5 mL subcutaneou s pen injector Inject 1 mg every week by subcutaneou s route for 28 days. No 1mg Q1W Wegovy 1 mg/0.5 mL subcutaneo us pen injector Inject 1 mg every week by subcutaneo us route for 28 days. [facility] Wegovy 1.7 mg/0.75 mL subcutaneou s pen injector Inject 1.7 mg every week by subcutaneou s route for 28 days. Wegovy 1.7 mg/0.75 mL subcutaneou s pen injector Inject 1.7 mg every week by subcutaneou s route for 28 days. No 1.7mg Q1W Wegovy 1.7 mg/0.75 mL subcutaneo us pen injector Inject 1.7 mg every week by subcutaneo us route for 28 days. [facility] Zenpep 40,000 unit-126,00 0 unit-168,00 0 unit capsule,del ayed release Zenpep 40,000 unit-126,00 0 unit-168,00 0 unit capsule,del ayed release No Zenpep 40,000 unit-126,0 00 unit-168,0 00 unit capsule,de layed release [facility] Baqsimi 3 mg/actuatio n nasal spray SPRAY NASALLY DIRECTED FOR EMERGENCY LOW SUGARS 30 DAYS. Baqsimi 3 mg/actuatio n nasal spray SPRAY NASALLY DIRECTED FOR EMERGENCY LOW SUGARS 30 DAYS. No Baqsimi 3 mg/actuati on nasal spray SPRAY NASALLY DIRECTED FOR EMERGENCY LOW SUGARS 30 DAYS. [facility] bupropion HCl SR 150 mg tablet,12 hr sustained-r elease TAKE ONE (1) TABLET(S) BY MOUTH TWICE A DAY. bupropion HCl SR 150 mg tablet,12 hr sustained-r elease TAKE ONE (1) TABLET(S) BY MOUTH TWICE A DAY. No bupropion HCl SR 150 mg tablet,12 hr sustained- release TAKE ONE (1) TABLET(S) BY MOUTH TWICE A DAY. [facility] bupropion HCl XL 300 mg 24 hr tablet, extended release TAKE ONE (1) TABLET(S) BY MOUTH ONCE A DAY IN THE MORNING. bupropion HCl XL 300 mg 24 hr tablet, extended release TAKE ONE (1) TABLET(S) BY MOUTH ONCE A DAY IN THE MORNING. No bupropion HCl XL 300 mg 24 hr tablet, extended release TAKE ONE (1) TABLET(S) BY MOUTH ONCE A DAY IN THE MORNING. [facility] Dexcom G6 CGM Dexcom G6 CGM No Dexcom G6 CGM [facility] Dexcom G6 Sensor device Take 3 devices every month by miscell. route. Dexcom G6 Sensor device Take 3 devices every month by miscell. route. No Dexcom G6 Sensor device Take 3 devices every month by miscell. route. [facility] Dexcom G6 Transmitter device USE DIRECTED. Dexcom G6 Transmitter device USE DIRECTED. No Dexcom G6 Transmitte r device USE DIRECTED. [facility] insulin lispro (U-100) 100 unit/mL subcutaneou s solution INJECT 60 UNITS PER DAY VIA INSULIN PUMP. insulin lispro (U-100) 100 unit/mL subcutaneou s solution INJECT 60 UNITS PER DAY VIA INSULIN PUMP. No insulin lispro (U-100) 100 unit/mL subcutaneo us solution INJECT 60 UNITS PER DAY VIA INSULIN PUMP. [facility] Lyumjev KwikPen U-100 Insulin 100 unit/mL subcutaneou s Give before meals in case of pump failure using ICR 1:5; CF 1:30: TDD 50 Lyumjev KwikPen U-100 Insulin 100 unit/mL subcutaneou s Give before meals in case of pump failure using ICR 1:5; CF 1:30: TDD 50 No Lyumjev KwikPen U-100 Insulin 100 unit/mL subcutaneo us Give before meals in case of pump failure using ICR 1:5; CF 1:30: TDD 50 [facility] Lyumjev U-100 Insulin 100 unit/mL subcutaneou s solution Use daily with insulin pump: TDD 70 Lyumjev U-100 Insulin 100 unit/mL subcutaneou s solution Use daily with insulin pump: TDD 70 No Lyumjev U-100 Insulin 100 unit/mL subcutaneo us solution Use daily with insulin pump: TDD 70 [facility] meclizine 25 mg tablet TAKE ONE (1) TABLET(S) BY MOUTH EVERY EIGHT HOURS NEEDED. meclizine 25 mg tablet TAKE ONE (1) TABLET(S) BY MOUTH EVERY EIGHT HOURS NEEDED. No meclizine 25 mg tablet TAKE ONE (1) TABLET(S) BY MOUTH EVERY EIGHT HOURS NEEDED. [facility] metoclopram karen 10 mg tablet TAKE ONE (1) TABLET(S) BY MOUTH BY MOUTH FOUR TIMES A DAY (BEFORE MEALS) NEEDED FOR NAUSEA AND VOMITING. metoclopram karen 10 mg tablet TAKE ONE (1) TABLET(S) BY MOUTH BY MOUTH FOUR TIMES A DAY (BEFORE MEALS) NEEDED FOR NAUSEA AND VOMITING. No metoclopra mide 10 mg tablet TAKE ONE (1) TABLET(S) BY MOUTH BY MOUTH FOUR TIMES A DAY (BEFORE MEALS) NEEDED FOR NAUSEA AND VOMITING. [facility] metoprolol succinate ER 25 mg tablet,exte nded release 24 hr TAKE ONE (1) TABLET(S) BY MOUTH ONCE A DAY. metoprolol succinate ER 25 mg tablet,exte nded release 24 hr TAKE ONE (1) TABLET(S) BY MOUTH ONCE A DAY. No metoprolol succinate ER 25 mg tablet,ext ended release 24 hr TAKE ONE (1) TABLET(S) BY MOUTH ONCE A DAY. [facility] metoprolol succinate ER 50 mg tablet,exte nded release 24 hr TAKE ONE (1) TABLET(S) BY MOUTH ONCE A DAY. metoprolol succinate ER 50 mg tablet,exte nded release 24 hr TAKE ONE (1) TABLET(S) BY MOUTH ONCE A DAY. No metoprolol succinate ER 50 mg tablet,ext ended release 24 hr TAKE ONE (1) TABLET(S) BY MOUTH ONCE A DAY. [facility] mupirocin 2 % topical ointment APPLY TO AFFECTED AREA 3 (THREE) TIMES DAILY. mupirocin 2 % topical ointment APPLY TO AFFECTED AREA 3 (THREE) TIMES DAILY. No mupirocin 2 % topical ointment APPLY TO AFFECTED AREA 3 (THREE) TIMES DAILY. [facility] nitroglycer in 0.4 mg sublingual tablet nitroglycer in 0.4 mg sublingual tablet No nitroglyce rin 0.4 mg sublingual tablet [facility] ondansetron 4 [address] dis[address] ing tablet PLACE ONE (1) TABLET (4 MG) ON THE TONGUE AND ALLOW TO DISSOLVE EVERY 8 HOURS NEEDED. ondansetron 4 [address] disintegrat ing tablet PLACE ONE (1) TABLET (4 MG) ON THE TONGUE AND ALLOW TO DISSOLVE EVERY 8 HOURS NEEDED. No ondansetro n 4 [address] ting tablet PL[address] ONE (1) TABLET (4 MG) ON THE TONGUE AND ALLOW TO DISSOLVE EVERY 8 HOURS NEEDED. [facility] ondansetron HCl 4 mg tablet ondansetron HCl 4 mg tablet No ondansetro n HCl 4 mg tablet [facility] OneTouch Delica Plus Lancet 33 gauge OneTouch Delica Plus Lancet 33 gauge No OneTouch Delica Plus Lancet 33 gauge [facility] OneTouch Verio Flex Meter OneTouch Verio Flex Meter No OneTouch Verio Flex Meter [facility] OneTouch Verio test strips Take 1 strip 5 times a day by miscell. route for 90 days. OneTouch Verio test strips Take 1 strip 5 times a day by miscell. route for 90 days. No 1strip( s) 5xD OneTouch Verio test strips Take 1 strip 5 times a day by miscell. route for 90 days. [facility] pantoprazol e 40 mg tablet,lucy yed release pantoprazol e 40 mg tablet,lucy yed release No pantoprazo le 40 mg tablet,del ayed release [facility] t:slim X2 subcutaneou s cartridge t:slim X2 subcutaneou s cartridge No t:slim X2 subcutaneo us cartridge [facility] trazodone 50 mg tablet TAKE TWO (2) TABLET(S) BY MOUTH DAILY NEEDED AT BEDTIME. trazodone 50 mg tablet TAKE TWO (2) TABLET(S) BY MOUTH DAILY NEEDED AT BEDTIME. No trazodone 50 mg tablet TAKE TWO (2) TABLET(S) BY MOUTH DAILY NEEDED AT BEDTIME. [facility] Tresiba FlexTouch U-100 insulin 100 unit/mL (3 mL) subcutaneou s pen INJECT 24 UNITS INTO THE SKIN IN THE MORNING IF PUMP FAILS. Tresiba FlexTouch U-100 insulin 100 unit/mL (3 mL) subcutaneou s pen INJECT 24 UNITS INTO THE SKIN IN THE MORNING IF PUMP FAILS. No Tresiba FlexTouch U-100 insulin 100 unit/mL (3 mL) subcutaneo us pen INJECT 24 UNITS INTO THE SKIN IN THE MORNING IF PUMP FAILS. [facility] TruSteel Infusion Set 23" Take 10 sets every month by miscell. route. TruSteel Infusion Set 23" Take 10 sets every month by miscell. route. No TruSteel Infusion Set 23" Take 10 sets every month by miscell. route. [facility] venlafaxine ER 37.5 mg capsule,ext ended release 24 hr TAKE ONE (1) CAPSULE(S) BY MOUTH DAILY WITH FOOD. venlafaxine ER 37.5 mg capsule,ext ended release 24 hr TAKE ONE (1) CAPSULE(S) BY MOUTH DAILY WITH FOOD. No venlafaxin e ER 37.5 mg capsule,ex tended release 24 hr TAKE ONE (1) CAPSULE(S) BY MOUTH DAILY WITH FOOD. [facility] Zenpep 40,000 unit-126,00 0 unit-168,00 0 unit capsule,del ayed release Zenpep 40,000 unit-126,00 0 unit-168,00 0 unit capsule,del ayed release No Zenpep 40,000 unit-126,0 00 unit-168,0 00 unit capsule,de layed release [facility] Immunizations Ordered Immunization Name Filled Immunization Name Date Status Comments Source Influenza Virus Vaccine Quad IM 2021-01-19 00:00:[address] [facility] Influenza Virus Vaccine Quad IM 2021-01-19 00:00:[address] [facility] Influenza Virus Vaccine Quad IM 2021-01-19 00:00:[address] [facility] Influenza Virus Vaccine Quad IM 2021-01-19 00:00:[address] [facility] Influenza Virus Vaccine Quad IM 2021-01-19 00:00:[address] [facility] Influenza Virus Vaccine Quad IM 2021-01-19 00:00:[address] [facility] Influenza Virus Vaccine Quad IM 2021-01-19 00:00:[address] [facility] Influenza Virus Vaccine Quad IM 2021-01-19 00:00:[address] [facility] Influenza Virus Vaccine Quad IM 2021-01-19 00:00:[address] [facility] Influenza Virus Vaccine Quad IM 2021-01-19 00:00:[address] [facility] Influenza Virus Vaccine Quad IM 2021-01-19 00:00:[address] [facility] Influenza Virus Vaccine Quad IM 3+ YRS 2021-01-19 00:00:[address] [facility] Influenza Virus Vaccine Quad IM 3+ YRS 2021-01-19 00:00:[address] [facility] Influenza Virus Vaccine Quad IM 3+ YRS 2021-01-19 00:00:[address] [facility] SARS-COV-2 COVID-19 PFIZER VACCINE 2020-09-25 00:00:[address] [facility] SARS-COV-2 COVID-19 PFIZER VACCINE 2020-09-25 00:00:[address] [facility] SARS-COV-2 COVID-19 PFIZER VACCINE 2020-09-25 00:00:[address] [facility] SARS-COV-2 COVID-19 PFIZER VACCINE 2020-09-25 00:00:[address] [facility] SARS-COV-2 COVID-19 PFIZER VACCINE 2020-09-25 00:00:[address] [facility] SARS-COV-2 COVID-19 PFIZER VACCINE 2020-09-25 00:00:[address] [facility] SARS-COV-2 COVID-19 PFIZER VACCINE 2020-09-25 00:00:[address] [facility] SARS-COV-2 COVID-19 PFIZER VACCINE 2020-09-25 00:00:[address] [facility] SARS-COV-2 COVID-19 PFIZER VACCINE 2020-09-25 00:00:[address] [facility] COVID-19, mRNA, LNP-S, PF, 30 mcg/0.3 mL dose (Pfizer-BioNTech) COVID-19, mRNA, LNP-S, PF, 30 mcg/0.3 mL dose (Pfizer-BioNTech) 2020-09-25 00:00:00 Completed [facility] COVID-19, mRNA, LNP-S, PF, 30 mcg/0.3 mL dose (Pfizer-BioNTech) COVID-19, mRNA, LNP-S, PF, 30 mcg/0.3 mL dose (Pfizer-BioNTech) 2020-09-25 00:00:00 Completed [facility] SARS-COV-2 COVID-19 PFIZER VACCINE 2020-06-02 00:00:[address] [facility] SARS-COV-2 COVID-19 PFIZER VACCINE 2020-06-02 00:00:[address] [facility] SARS-COV-2 COVID-19 PFIZER VACCINE 2020-06-02 00:00:[address] [facility] SARS-COV-2 COVID-19 PFIZER VACCINE 2020-06-02 00:00:[address] [facility] SARS-COV-2 COVID-19 PFIZER VACCINE 2020-06-02 00:00:[address] [facility] SARS-COV-2 COVID-19 PFIZER VACCINE 2020-06-02 00:00:[address] [facility] SARS-COV-2 COVID-19 PFIZER VACCINE 2020-06-02 00:00:[address] [facility] SARS-COV-2 COVID-19 PFIZER VACCINE 2020-06-02 00:00:[address] [facility] SARS-COV-2 COVID-19 PFIZER VACCINE 2020-06-02 00:00:[address] [facility] SARS-COV-2 COVID-19 PFIZER VACCINE 2020-06-02 00:00:[address] [facility] SARS-COV-2 COVID-19 PFIZER VACCINE 2020-06-02 00:00:[address] [facility] SARS-COV-2 COVID-19 PFIZER VACCINE 2020-06-02 00:00:[address] [facility] SARS-COV-2 COVID-19 PFIZER VACCINE 2020-06-02 00:00:[address] [facility] SARS-COV-2 COVID-19 PFIZER VACCINE 2020-06-02 00:00:[address] [facility] SARS-COV-2 COVID-19 UNSPECIFIED VACCINE 2020-05-22 00:00:[address] [facility] SARS-COV-2 COVID-19 UNSPECIFIED VACCINE 2020-05-22 00:00:[address] [facility] SARS-COV-2 COVID-19 UNSPECIFIED VACCINE 2020-05-22 00:00:[address] [facility] SARS-COV-2 COVID-19 UNSPECIFIED VACCINE 2020-05-22 00:00:[address] [facility] SARS-COV-2 COVID-19 UNSPECIFIED VACCINE 2020-05-22 00:00:[address] [facility] SARS-COV-2 COVID-19 UNSPECIFIED VACCINE 2020-05-22 00:00:[address] [facility] SARS-COV-2 COVID-19 UNSPECIFIED VACCINE 2020-05-22 00:00:[address] [facility] SARS-COV-2 COVID-19 UNSPECIFIED VACCINE 2020-05-22 00:00:[address] [facility] SARS-COV-2 COVID-19 UNSPECIFIED VACCINE 2020-05-22 00:00:[address] [facility] COVID-19 (SARS-COV-2) vaccine, unspecified COVID-19 (SARS-COV-2) vaccine, unspecified 2020-05-22 00:00:00 Completed [facility] COVID-19 (SARS-COV-2) vaccine, unspecified COVID-19 (SARS-COV-2) vaccine, unspecified 2020-05-22 00:00:00 Completed [facility] SARS-COV-2 COVID-19 PFIZER VACCINE 2020-05-12 00:00:[address] [facility] SARS-COV-2 COVID-19 PFIZER VACCINE 2020-05-12 00:00:[address] [facility] SARS-COV-2 COVID-19 PFIZER VACCINE 2020-05-12 00:00:[address] [facility] SARS-COV-2 COVID-19 PFIZER VACCINE 2020-05-12 00:00:[address] [facility] SARS-COV-2 COVID-19 PFIZER VACCINE 2020-05-12 00:00:[address] [facility] SARS-COV-2 COVID-19 PFIZER VACCINE 2020-05-12 00:00:[address] [facility] SARS-COV-2 COVID-19 PFIZER VACCINE 2020-05-12 00:00:[address] [facility] SARS-COV-2 COVID-19 PFIZER VACCINE 2020-05-12 00:00:[address] [facility] SARS-COV-2 COVID-19 PFIZER VACCINE 2020-05-12 00:00:[address] [facility] SARS-COV-2 COVID-19 PFIZER VACCINE 2020-05-12 00:00:[address] [facility] SARS-COV-2 COVID-19 PFIZER VACCINE 2020-05-12 00:00:[address] [facility] SARS-COV-2 COVID-19 PFIZER VACCINE 2020-05-12 00:00:[address] [facility] SARS-COV-2 COVID-19 PFIZER VACCINE 2020-05-12 00:00:[address] [facility] SARS-COV-2 COVID-19 PFIZER VACCINE 2020-05-12 00:00:[address] [facility] Influenza Virus Vaccine Quad IM Multi-dose 6+ MO 2020-01-20 00:00:[address] [facility] Influenza Virus Vaccine Quad IM Multi-dose 6+ MO 2020-01-20 00:00:[address] [facility] Influenza Virus Vaccine Quad IM Multi-dose 6+ MO 2020-01-20 00:00:[address] [facility] Influenza Virus Vaccine Quad IM Multi-dose 6+ MO 2020-01-20 00:00:[address] [facility] Influenza Virus Vaccine Quad IM Multi-dose 6+ MO 2020-01-20 00:00:[address] [facility] Influenza Virus Vaccine Quad IM Multi-dose 6+ MO 2020-01-20 00:00:[address] [facility] Influenza Virus Vaccine Quad IM Multi-dose 6+ MO 2020-01-20 00:00:[address] [facility] Influenza Virus Vaccine Quad IM Multi-dose 6+ MO 2020-01-20 00:00:[address] [facility] Influenza Virus Vaccine Quad IM Multi-dose 6+ MO 2020-01-20 00:00:[address] [facility] influenza, injectable, quadrivalent influenza, injectable, quadrivalent 2020-01-20 00:00:00 Completed [facility] influenza, injectable, quadrivalent influenza, injectable, quadrivalent 2020-01-20 00:00:00 Completed [facility] Influenza Virus Vaccine Quad IM 3+ YRS 2018-01-29 00:00:[address] [facility] Influenza Virus Vaccine Quad IM 3+ YRS 2018-01-29 00:00:[address] [facility] Influenza Virus Vaccine Quad IM 3+ YRS 2018-01-29 00:00:[address] [facility] Influenza Virus Vaccine Quad IM 3+ YRS 2018-01-29 00:00:[address] [facility] Influenza Virus Vaccine Quad IM 3+ YRS 2018-01-29 00:00:[address] [facility] Influenza Virus Vaccine Quad IM 3+ YRS 2018-01-29 00:00:[address] [facility] Influenza Virus Vaccine Quad IM 3+ YRS 2018-01-29 00:00:[address] [facility] Influenza Virus Vaccine Quad IM 3+ YRS 2018-01-29 00:00:[address] [facility] Influenza Virus Vaccine Quad IM 3+ YRS 2018-01-29 00:00:[address] [facility] Influenza Virus Vaccine Quad IM 3+ YRS 2018-01-29 00:00:[address] [facility] Influenza Virus Vaccine Quad IM 3+ YRS 2018-01-29 00:00:[address] [facility] Influenza Virus Vaccine Quad IM 3+ YRS 2018-01-29 00:00:[address] [facility] Influenza Virus Vaccine Quad IM 3+ YRS 2018-01-29 00:00:[address] [facility] Influenza Virus Vaccine Quad IM 3+ YRS 2018-01-29 00:00:[address] [facility] TDAP 2016-07-20 00:00:[address] [facility] TDAP 2016-07-20 00:00:[address] [facility] TDAP 2016-07-20 00:00:[address] [facility] TDAP 2016-07-20 00:00:[address] [facility] TDAP 2016-07-20 00:00:[address] [facility] TDAP 2016-07-20 00:00:[address] [facility] TDAP 2016-07-20 00:00:[address] [facility] TDAP 2016-07-20 00:00:[address] [facility] TDAP 2016-07-20 00:00:[address] [facility] TDAP 2016-07-20 00:00:[address] [facility] TDAP 2016-07-20 00:00:[address] [facility] TDAP 2016-07-20 00:00:[address] [facility] TDAP 2016-07-20 00:00:[address] [facility] TDAP 2016-07-20 00:00:[address] [facility] Tetanus Toxoid, Absorbed 2015-04-21 00:00:[address] [facility] Tetanus Toxoid, Absorbed 2015-04-21 00:00:[address] [facility] Tetanus Toxoid, Absorbed 2015-04-21 00:00:[address] [facility] Tetanus Toxoid, Absorbed 2015-04-21 00:00:[address] [facility] Tetanus Toxoid, Absorbed 2015-04-21 00:00:[address] [facility] Tetanus Toxoid, Absorbed 2015-04-21 00:00:[address] [facility] Tetanus Toxoid, Absorbed 2015-04-21 00:00:[address] [facility] Tetanus Toxoid, Absorbed 2015-04-21 00:00:[address] [facility] Tetanus Toxoid, Absorbed 2015-04-21 00:00:[address] [facility] tetanus toxoid, adsorbed tetanus toxoid, adsorbed 2015-04-21 00:00:00 Completed [facility] tetanus toxoid, adsorbed tetanus toxoid, adsorbed 2015-04-21 00:00:00 Completed [facility] Influenza Virus Vaccine Quad IM 3+ YRS Unknown Completed [facility] SARS-COV-2 COVID-19 PFIZER VACCINE Unknown Completed [facility] SARS-COV-2 COVID-19 PFIZER VACCINE Unknown Completed [facility] Influenza Virus Vaccine Quad IM 3+ YRS Unknown Completed [facility] TDAP Unknown Completed [facility] SARS-COV-2 COVID-19 UNSPECIFIED VACCINE Unknown Completed [facility] SARS-COV-2 COVID-19 PFIZER VACCINE Unknown Completed [facility] Influenza Virus Vaccine Quad IM Multi-dose 6+ MO Unknown Completed [facility] Tetanus Toxoid, Absorbed Unknown Completed [facility] Influenza Virus Vaccine Quad IM 3+ YRS Unknown Completed [facility] SARS-COV-2 COVID-19 PFIZER VACCINE Unknown Completed [facility] TDAP Unknown Completed [facility] Influenza Virus Vaccine Quad IM Multi-dose 6+ MO Unknown Completed [facility] Tetanus Toxoid, Absorbed Unknown Completed [facility] Influenza Virus Vaccine Quad IM 3+ YRS Unknown Completed [facility] SARS-COV-2 COVID-19 PFIZER VACCINE Unknown Completed [facility] SARS-COV-2 COVID-19 PFIZER VACCINE Unknown Completed [facility] Influenza Virus Vaccine Quad IM 3+ YRS Unknown Completed [facility] TDAP Unknown Completed [facility] SARS-COV-2 COVID-19 UNSPECIFIED VACCINE Unknown Completed [facility] SARS-COV-2 COVID-19 PFIZER VACCINE Unknown Completed [facility] Influenza Virus Vaccine Quad IM Multi-dose 6+ MO Unknown Completed [facility] Tetanus Toxoid, Absorbed Unknown Completed [facility] COVID-19, mRNA, LNP-S, PF, 30 mcg/0.3 mL dose (Pfizer-BioNTech) COVID-19, mRNA, LNP-S, PF, 30 mcg/0.3 mL dose (Pfizer-BioNTech) Unknown Completed [facility] COVID-19 (SARS-COV-2) vaccine, unspecified COVID-19 (SARS-COV-2) vaccine, unspecified Unknown Completed [facility] influenza, injectable, quadrivalent influenza, injectable, quadrivalent Unknown Completed [facility] tetanus toxoid, adsorbed tetanus toxoid, adsorbed Unknown Completed [facility] Vital Signs Vital Name Observation Time Observation Value Comments S ource BP Systolic 2023-06-17 00:00:00 117 mm[Hg] [facility] Height 2023-06-17 00:00:00 63 [in_i] [facility] BP Diastolic 2023-06-17 00:00:00 75 mm[Hg] [facility] Body Weight 2023-06-17 00:00:00 181.4 [lb_av] [facility] BMI (Body Mass Index) 2023-06-17 00:00:00 32.1 kg/m2 [facility] Systolic blood pressure 2022-09-03 20:06:00 113 mm[Hg] [facility] Diastolic blood pressure 2022-09-03 20:06:00 80 mm[Hg] [facility] Heart rate 2022-09-03 20:06:00 85 /min [facility] Respiratory rate 2022-09-03 20:06:00 20 /min [facility] Body height 2022-09-03 20:06:00 161.5 cm [facility] Body weight 2022-09-03 20:06:00 83.825 kg [facility] BMI 2022-09-03 20:06:00 32.12 kg/m2 [facility] in Arterial blood by Pulse oximetry 2022-09-03 20:06:00 99 /min [facility] Systolic blood pressure 2022-06-05 20:13:00 130 mm[Hg] [facility] Diastolic blood pressure 2022-06-05 20:13:00 84 mm[Hg] [facility] Heart rate 2022-06-05 20:13:00 97 /min [facility] Body height 2022-06-05 20:13:00 160 cm [facility] Body weight 2022-06-05 20:13:00 78.155 kg [facility] BMI 2022-06-05 20:13:00 30.52 kg/m2 [facility] Oxygen saturation in Arterial blood by Pulse oximetry 2022-06-05 20:13:00 100 /min [facility] Systolic blood pressure 2022-05-29 22:44:00 118 mm[Hg] [facility] Diastolic blood pressure 2022-05-29 22:44:00 74 mm[Hg] [facility] Heart rate 2022-05-29 22:44:00 92 /min [facility] Body height 2022-05-29 22:44:00 160 cm [facility] Body weight 2022-05-29 22:44:00 77.111 kg [facility] BMI 2022-05-29 22:44:00 30.11 kg/m2 [facility] Oxygen saturation in Arterial blood by Pulse oximetry 2022-05-29 22:44:00 99 /min [facility] BP Diastolic 2022-02-05 00:00:00 72 mm[Hg] [facility] Height 2022-02-05 00:00:00 63 [in_i] [facility] BMI (Body Mass Index) 2022-02-05 00:00:00 30.1 kg/m2 [facility] BP Systolic 2022-02-05 00:00:00 108 mm[Hg] [facility] Body Weight 2022-02-05 00:00:00 170 [lb_av] [facility] Systolic blood pressure 2021-12-25 18:44:00 104 mm[Hg] [facility] Diastolic blood pressure 2021-12-25 18:44:00 71 mm[Hg] [facility] Heart rate 2021-12-25 18:44:00 98 /min [facility] Body temperature 2021-12-25 18:44:[address] [facility] Body height 2021-12-25 18:44:00 160 cm [facility] Body weight 2021-12-25 18:44:00 76.658 kg [facility] BMI 2021-12-25 18:44:00 29.94 kg/m2 [facility] Oxygen saturation in Arterial blood by Pulse oximetry 2021-12-25 18:44:00 99 /min [facility] BP Diastolic 2021-10-03 00:00:00 64 mm[Hg] [facility] Height 2021-10-03 00:00:00 63 [in_i] [facility] BMI (Body Mass Index) 2021-10-03 00:00:00 25.7 kg/m2 [facility] ly Practice BP Systolic 2021-10-03 00:00:00 94 mm[Hg] [facility] Body Weight 2021-10-03 00:00:00 145 [lb_av] [facility] BP Diastolic 2021-08-14 00:00:00 60 mm[Hg] [facility] Height 2021-08-14 00:00:00 63 [in_i] [facility] BMI (Body Mass Index) 2021-08-14 00:00:00 27.8 kg/m2 [facility] BP Systolic 2021-08-14 00:00:00 91 mm[Hg] [facility] Body Weight 2021-08-14 00:00:00 156.8 [lb_av] [facility] BP Diastolic 2021-05-16 00:00:00 81 mm[Hg] [facility] Height 2021-05-16 00:00:00 63 [in_i] [facility] BMI (Body Mass Index) 2021-05-16 00:00:00 32.2 kg/m2 [facility] BP Systolic 2021-05-16 00:00:00 115 mm[Hg] [facility] Body Weight 2021-05-16 00:00:00 182 [lb_av] [facility] BP Diastolic 2020-10-11 00:00:00 77 mm[Hg] [facility] Height 2020-10-11 00:00:00 63 [in_i] [facility] BMI (Body Mass Index) 2020-10-11 00:00:00 30.5 kg/m2 [facility] BP Systolic 2020-10-11 00:00:00 113 mm[Hg] [facility] Body Weight 2020-10-11 00:00:00 172.4 [lb_av] [facility] BP Diastolic 2020-07-14 00:00:00 77 mm[Hg] [facility] Height 2020-07-14 00:00:00 63 [in_i] [facility] BMI (Body Mass Index) 2020-07-14 00:00:00 32.8 kg/m2 [facility] BP Systolic 2020-07-14 00:00:00 108 mm[Hg] [facility] Body Weight 2020-07-14 00:00:00 185 [lb_av] [facility] BP Diastolic 2020-04-11 00:00:00 68 mm[Hg] [facility] Height 2020-04-11 00:00:00 63 [in_i] [facility] BMI (Body Mass Index) 2020-04-11 00:00:00 31.4 kg/m2 [facility] BP Systolic 2020-04-11 00:00:00 118 mm[Hg] [facility] Body Weight 2020-04-11 00:00:00 177 [lb_av] [facility] BP Diastolic 2019-02-10 00:00:00 75 mm[Hg] [facility] Height 2019-02-10 00:00:00 63 [in_i] [facility] BMI (Body Mass Index) 2019-02-10 00:00:00 25.7 kg/m2 [facility] BP Systolic 2019-02-10 00:00:00 120 mm[Hg] Ga zuñiga [facility] Body Weight 2019-02-10 00:00:00 145.1 [lb_av] M christy [facility] Procedures Procedure Date / Time Performed Performing Clinician Source POCT SARS-COV-2 ANTIGEN (BINAX NOW) 2023-05-06 16:53:[address] [facility] THYROID STIMULATING HORMONE 2022-10-04 14:50:[address] [facility] LIPID PANEL (46163)(TOTAL CHOLESTEROL, TRIGLYCERIDES, HDL) 2022-10-04 14:50:[address] [facility] GLYCOSYLATED HEMOGLOBIN (A1C) 2022-10-04 14:50:[address] [facility] PHYSICIAN ORDERS 2022-10-04 05:01:00 Doctor Unas signed, Rew [facility] PATIENT FINANCIAL POLICY 2022-09-03 19:30:31 Doctor Unassigned, Rew [facility] ASSIGNMENT OF BENEFITS 2022-05-29 22:26:18 Docto r Unassigned, Rew [facility] EXTERNAL PROVIDER RECORDS 2022-01-07 05:01:00 Doctor Unassigned, Rew [facility] Hysterectomy (Total) 2019-06-20 00:00:00 [facility] CT, sinuses, w/o contrast 2019-02-10 00:00:00 [facility] S[facility] 2015-09-20 00:00:00 [facility] Sinus Surgery [facility] Plan of Care Planned Activity Planned Date Details Comments Source Diagnostic Test Pending 2023-06-17 00:00:00 glucose, fingerstick, blood [code = glucose, fingerstick, blood] [facility] Diagnostic Test Pending 2023-06-17 00:00:00 hemoglobin A1C, fingerstick [code = hemoglobin A1C, fingerstick] [facility] Future Appointment 2023-09-02 15:45:00 Claudy Grey, [id number]; [address], [place] [address] [facility] Instructions [facility] Encounters Start Date/Time End Date/Time Encounter Type Admission Type Attending Clinicians Care Facility Care Department Encounter ID Source 2023-06-17 00:00:00 2023-06-17 00:00:00 Outpatient Bui_Q_WAGDN U VFP VFP [id number] [facility] 2023-06-17 00:00:00 2023-06-17 00:00:00 Claudy Grey MD: [id number], [address], [place] [address] , Ph. VFP [place] - [facility] Medical - [place] - VM_HOU_Shad [place] [id number] [facility] 2023-05-06 11:00:00 2023-05-06 11:00:00 Laboratory Only Only, Ang Db Test Unknown, Attending Monique Garcia [facility] 1.2.840.114 350.1.13.10 4.2.7.2.686 [id number] [facility] 2023-05-06 11:00:00 2023-05-06 10:55:40 Outpatient R MONIQUE GARCIA [facility] [id number] [facility] 2023-05-05 12:00:00 2023-05-05 12:00:00 Outpatient R [facility] [id number] [facility] 2022-10-11 15:30:00 2022-10-11 15:30:00 Outpatient R YURIDIA ARRIOLA [facility] [id number] [facility] 2022-10-07 00:00:00 2022-10-07 00:00:00 Patient Secure Msg Doctor Unassigned, Rew [facility] MED[facility] OFFICE BU[facility] 1.2.840.114 350.1.13.10 4.2.7.2.686 [id number] [facility] 2022-10-04 10:45:00 2022-10-04 11:00:00 String Cutter Visit Pob, Adc Lab Main Gabriela Luong [facility] NAL BUILDING 1.84.114 350.1.13.10 4.2.7.2.686 [id number] [facility] 2022-10-04 10:45:00 2022-10-04 10:45:00 Outpatient R GABRIELA LUONG [facility] [id number] [facility] 2022-10-04 00:00:00 2022-10-04 00:00:00 Orders Only Doctor Unassigned, Rew [facility] 1.114 350.1.13.10 4.2.7.2.686 [id number] [facility] 2022-09-04 11:00:00 2022-09-04 11:00:00 Outpatient R MARSHA WILLS [facility] [id number] [facility] 2022-09-03 14:30:00 2022-09-03 15:44:33 Outpatient R ZEINAB YURIDIA [facility] [id number] [facility] 2022-09-03 14:30:00 2022-09-03 15:44:33 Office Visit Cynthia Arriolathia [facility] BUILDING 1.84.114 350.1.13.10 4.2.7.2.686 [id number] [facility] 2022-09-03 00:00:00 2022-09-03 00:00:00 Orders Only Doctor Unassigned, Rew [facility] 1.114 350.1.13.10 4.2.7.2.686 [id number] [facility] 2022-06-28 00:00:00 2022-06-28 00:00:00 Telephone Marsha Wills [facility] MED[facility] OFF[facility] BU[facility] 1.114 350.1.13.10 4.2.7.2.686 [id number] [facility] 2022-06-05 14:00:00 2022-06-05 14:56:53 Outpatient R MARSHA WILLS [facility] [id number] [facility] 2022-06-05 14:00:00 2022-06-05 14:56:53 [facility] BU[facility] 1.2.840.114 350.1.13.10 4.2.7.2.686 [id number] [facility] 2022-05-29 16:30:00 2022-05-29 17:14:09 Outpatient Jannie MARSHA WILLS [facility] [id number] [facility] 2022-05-29 16:30:00 2022-05-29 17:14:09 [facility] MED[facility] OFF[facility] BU[facility] 1.2.840.114 350.1.13.10 4.2.7.2.686 [id number] [facility] 2022-05-29 00:00:00 2022-05-29 00:00:00 Orders Only Doctor Unassigned, Rew [facility] 1..840.114 350.1.13.10 4.2.7.2.686 [id number] [facility] 2022-04-10 00:00:00 2022-04-10 00:00:00 Outpatient Que_T_HO U_MD VFP VFP [id number] [facility] 2022-02-05 00:00:00 2022-02-05 00:00:00 Outpatient Bui_Q_WAGDN U VFP VFP [id number] [facility] e 2022-02-05 00:00:00 2022-02-05 00:00:00 Outpatient Bui_Q_WAGDN U VFP VFP [id number] [facility] 2022-02-05 00:00:00 2022-02-05 00:00:00 Claudy Grey MD: [id number] [facility], [address], [place] [address] , Ph. VFP [place] [facility] Medical - [place] - VM_HOU_[place] [address] [place] [id number] [facility] 2022-01-23 00:00:00 2022-01-23 00:00:00 Outpatient Daniel_T VFP VFP [id number] [facility] 2022-01-22 00:00:00 2022-01-22 00:00:00 Outpatient Bui_Q_WAGDN U VFP VFP [id number] [facility] 2022-01-07 00:00:00 2022-01-07 00:00:00 Orders Only Doctor Unassigned, Rew [facility] 1.2.840.114 350.1.13.10 4.2.7.2.686 [id number] [facility] 2021-12-25 13:30:00 2021-12-25 14:00:00 Office Visit Jose Roberto Prado [facility] 1.2.840.114 350.1.13.10 4.2.7.2.686 [id number] [facility] 2021-12-25 13:30:00 2021-12-25 13:30:00 Outpatient R JOSE ROBERTO PRADO [facility] [id number] [facility] 2021-12-18 00:00:00 2021-12-18 00:00:00 Outpatient Daniel_T VFP VFP [id number] [facility] 2021-11-13 02:41:00 2021-11-13 02:41:00 Outpatient Daniel_T VFP VFP [id number] [facility] 2021-10-26 09:19:00 2021-10-26 09:19:00 Outpatient Bui_Q_WAGDN U VFP VFP [id number] [facility] 2021-10-24 08:30:00 2021-10-24 08:45:00 String Cutter Visit Xi, Adc Lab Main DebGabriela henriquez [facility] 1.2840.114 350.1.13.10 4.2.7.2.686 [id number] [facility] 2021-10-24 08:30:00 2021-10-24 08:30:00 Outpatient GABRIELA GRULLON [facility] [id number] [facility] 2021-10-24 00:00:00 2021-10-24 00:00:00 Orders Only Doctor Unassigned, Rew [facility] 1.2840.114 350.1.13.10 4.2.7.2.686 [id number] [facility] 2021-10-18 00:00:00 2021-10-18 00:00:00 Patient Secure Msg Doctor Unassigned, Rew [facility] 1.2.114 350.1.13.10 4.2.7.2.686 [id number] [facility] 2021-10-11 15:29:12 2021-10-11 23:59:00 Outpatient CAMRON PIRES [facility] [id number] [facility] 2021-10-11 15:29:12 2021-10-11 23:59:00 Hospital Encounter Camron Parr [facility] ([facility]) 1.84.114 350.1.13.10 4.2.7.2.686 [id number] [facility] 2021-10-11 15:29:12 2021-10-11 23:59:00 Outpatient CAMRON PIRES [facility] [id number] [facility] 2021-10-08 11:00:00 2021-10-08 11:15:00 String Cutter Visit Lab, Ang - Marsha Whitfield Arsenio [facility] MEDICAL OFFICE BUILDING 1.2.840.114 350.1.13.10 4.2.7.2.686 [id number] [facility] 2021-10-08 10:00:00 2021-10-08 10:33:16 Outpatient R KESHAV [facility] [id number] [facility] 2021-10-08 10:00:00 2021-10-08 10:33:16 Office Visit Keshav [facility] MEDICAL OFFICE BUILDING 1..840.114 350.1.13.10 4.2.7.2.686 [id number] [facility] 2021-10-08 10:00:00 2021-10-08 10:33:16 Outpatient R KESHAV [facility] [id number] [facility] 2021-10-03 00:00:00 2021-10-03 00:00:00 Claudy Grey MD: [id number] [facility] [address] [facility], [address], [place] [address] , Ph. Que_T VFP [facility] - _HOU_[place] [address] [id number] [facility] 2021-09-28 11:30:00 2021-09-28 13:03:14 Outpatient R MARSHA WILLS [facility] [id number] [facility] 2021-09-28 11:30:00 2021-09-28 13:03:14 Office Visit Marsha Wills [facility] MEDICAL OFFICE BUILDING 1.2.840.114 350.1.13.10 4.2.7.2.686 [id number] [facility] 2021-09-05 04:42:00 2021-09-05 04:42:00 Outpatient Que_T VFP [facility] [id number] [facility] 2021-09-04 11:36:00 2021-09-04 11:36:00 Outpatient Belindai_Q_WAGDN U VFP VF [id number] [facility] 2021-08-23 00:00:00 2021-08-23 00:00:00 Orders Only Doctor Unassigned, Rew [facility] 1..840.114 350.1.13.10 4.2.7.2.686 [id number] [facility] 2021-08-15 00:00:00 2021-08-15 00:00:00 Telephone Bradly Navarro [facility] OFF[facility] BU[facility] 1..840.114 350.1.13.10 4.2.7.2.686 [id number] [facility] 2021-08-14 00:00:00 2021-08-14 00:00:00 Claudy Grey MD: [id number] [facility] [address] [facility], [address], [place] [address] , Ph. Felizel_T VFP [place] - [facility] Medical - _HOU_Shad [address] [id number] [facility] Practic e 2021-07-16 11:00:00 2021-07-16 11:15:00 String Cutter Visit Potea, Adc Lab Main Jesu [facility] 1..840.114 350.1.13.10 4.2.7.2.686 [id number] [facility] 2021-07-16 11:00:00 2021-07-16 11:00:00 Outpatient JESU SAWYER [facility] [id number] [facility] 2021-07-16 00:00:00 2021-07-16 00:00:00 Orders Only Doctor Unassigned, Rew [place] [address].840.114 350.1.13.10 4.2.7.2.686 [id number] [facility] 2021-07-13 16:00:00 2021-07-13 17:03:21 Outpatient Jannie BARTONRASHELASIA BYRNEKARENLORENA [facility] [id number] [facility] 2021-07-13 16:00:00 2021-07-13 17:03:21 Office Visit RashelJesu byrne [facility] MED[facility] OFFICE BUILDING 1.840.114 350.1.13.10 4.2.7.2.686 [id number] [facility] 2021-07-02 02:19:00 2021-07-02 02:19:00 Outpatient Daniel_T VFP VFP [id number] [facility] 2021-05-31 03:30:00 2021-05-31 03:30:00 Outpatient Daniel_T VFP VFP [id number] [facility] 2021-05-25 10:45:00 2021-05-25 11:00:00 String Cutter Visit Lab, Chris BartonJesu byrne [facility] MED[facility] OFF[facility] BUILDING 1.840.114 350.1.13.10 4.2.7.2.686 [id number] [facility] 2021-05-25 10:45:00 2021-05-25 10:45:00 Outpatient Jannie BARTONRASHELASIA BYRNELORENA [facility] [id number] [facility] 2021-05-25 09:30:00 2021-05-25 10:37:03 Office Visit Jose Roberto Prado [facility] MEDICAL OFFICE BUILDING 1.840.114 350.1.13.10 4.2.7.2.686 [id number] [facility] 2021-05-25 09:30:00 2021-05-25 10:37:03 Outpatient Jannie BENYJOSE ROBERTO Cesar [facility] [id number] [facility] 2021-05-25 00:00:00 2021-05-25 00:00:00 Letter (Out) BenyHiral cesarie [facility] 1.2.840.114 350.1.13.10 4.2.7.2.686 [id number] [facility] 2021-05-22 07:30:00 2021-05-22 07:45:00 String Cutter Visit Pob, Adc Lab Main Gabriela Luong [facility] BUILDING 1.2.840.114 350.1.13.10 4.2.7.2.686 [id number] [facility] 2021-05-22 07:30:00 2021-05-22 07:30:00 Outpatient GABRIELA GRULLON [facility] [id number] [facility] 2021-05-22 00:00:00 2021-05-22 00:00:00 Orders Only Doctor Unassigned, Rew [facility] 1.2.840.114 350.1.13.10 4.2.7.2.686 [id number] [facility] 2021-05-17 11:37:00 2021-05-17 11:37:00 Outpatient Bui_Q_WAGDN U [facility] [id number] [facility] e 2021-05-16 00:00:00 2021-05-16 00:00:00 Claudy Grey MD: [id number] [facility], [address], [place] [address] , Ph. Que_T [facility] [place] - [facility] - VM_HOU_Shad ow [place] [id number] [facility] e 2021-05-10 11:45:00 2021-05-10 12:00:00 Laboratory Only Only, Adc Test Gabriela Luong [facility] 1.2840.114 350.1.13.10 4.2.7.2.686 [id number] [facility] 2021-05-10 11:45:00 2021-05-10 11:45:00 Outpatient GABRIELA GRULLON [facility] [id number] [facility] 2021-05-10 00:00:00 2021-05-10 00:00:00 Orders Only Doctor Unassigned, Rew [facility] 1.2840.114 350.1.13.10 4.2.7.2.686 [id number] [facility] 2021-04-24 12:15:00 2021-04-24 12:30:00 String Cutter Visit Pob, Adc Lab Main Jesu Kiser [facility] NAL BUILDING 1.84.114 350.1.13.10 4.2.7.2.686 [id number] [facility] 2021-04-24 12:15:00 2021-04-24 12:15:00 Outpatient JESU SAWYER [facility] [id number] [facility] 2021-04-24 00:00:00 2021-04-24 00:00:00 Letter (Out) Mary Hernandez [facility] 1.84.114 350.1.13.10 4.2.7.2.686 [id number] [facility] 2021-03-06 13:19:43 2021-03-06 14:08:46 Office Visit Jesu Kiser [facility] 1.284.114 350.1.13.10 4.2.7.2.686 [id number] [facility] 2021-03-06 13:15:00 2021-03-06 14:08:46 Outpatient JESU SAWYER [facility] [id number] [facility] 2021-03-06 13:15:00 2021-03-06 14:08:46 Outpatient R JESU KISER [facility] [id number] [facility] 2021-03-05 11:21:14 2021-03-05 11:36:14 Laboratory Only Only, Adc Test Jesu Kiser [facility] 1.2.840.114 350.1.13.10 4.2.7.2.686 [id number] [facility] 2021-03-05 10:45:00 2021-03-05 10:45:00 Outpatient ASIA SAWYERKARENLORENA [facility] [id number] [facility] 2021-03-02 09:46:00 2021-03-02 09:46:00 Outpatient Daniel_T VFP VFP [id number] [facility] 2021-02-28 11:00:00 2021-02-28 11:00:00 Outpatient R JESU KISER [facility] [id number] [facility] 2021-02-28 11:00:00 2021-02-28 11:00:00 Outpatient JESU SAWYER [facility] [id number] [facility] 2021-02-27 14:54:20 2021-02-27 15:58:35 Office Visit PoloAsia byrnekarenlorena Cesar [facility] 1.2.840.114 350.1.13.10 4.2.7.2.686 [id number] [facility] 2021-02-27 14:30:00 2021-02-27 15:58:35 Outpatient R RASHELASIA BYRNEKARENLORENA [facility] [id number] [facility] 2021-02-27 14:30:00 2021-02-27 14:30:00 Outpatient R RASHEL ASIAKARENLORENA [facility] [id number] [facility] 2021-02-05 00:00:00 2021-02-05 00:00:00 Patient Secure Msg Jesu Kiser [facility] Medical Office Building 1.2.840.114 350.1.13.10 4.2.7.2.686 [id number] [facility] 2021-01-04 16:04:01 2021-01-04 16:19:01 Laboratory Only Only, Ang Db Test [facility] 1..840.114 350.1.13.10 4.2.7.2.686 [id number] [facility] 2021-01-04 16:15:00 2021-01-04 16:15:00 Outpatient R [facility] [id number] [facility] 2021-01-01 08:30:23 2021-01-01 09:58:30 Office Visit Jesu Kiser [facility] Medical Office Building 1..840.114 350.1.13.10 4.2.7.2.686 [id number] [facility] 2021-01-01 08:30:00 2021-01-01 08:30:00 Outpatient R JESU KISER [facility] [id number] [facility] 2020-11-29 12:30:00 2020-11-29 12:30:00 Outpatient R GABRIELA LUONG [facility] [id number] [facility] 2020-11-29 11:50:03 2020-11-29 12:05:03 Laboratory Only Only, Adc Gabriela Kim [facility] 1..840.114 350.1.13.10 4.2.7.2.686 [id number] [facility] 2020-11-29 00:00:00 2020-11-29 00:00:00 Orders Only Doctor Unassigned, Rew [facility] 1.2840.114 350.1.13.10 4.2.7.2.686 [id number] [facility] 2020-11-29 00:00:00 2020-11-29 00:00:00 Telephone Zakia Barrera [facility] 1.2840.114 350.1.13.10 4.2.7.2.686 [id number] [facility] 2020-11-28 11:59:13 2020-11-28 12:14:13 String Cutter Visit Pob, Adc Lab Main Jesu Kiser [facility] Building 1.2.840.114 350.1.13.10 4.2.7.2.686 [id number] [facility] 2020-11-28 10:03:22 2020-11-28 10:55:43 Office Visit Jesu Kiser [facility] Office Building One 1.2840.114 350.1.13.10 4.2.7.2.686 [id number] [facility] 2020-11-28 10:00:00 2020-11-28 10:00:00 Outpatient R JESU KISER [facility] [id number] [facility] 2020-11-09 10:55:20 2020-11-09 11:10:20 String Cutter Visit Pob, Adc Lab Main Jesu Kiser [facility] Building 1.2.840.114 350.1.13.10 4.2.7.2.686 [id number] [facility] 2020-11-09 08:30:00 2020-11-09 08:30:00 Outpatient R JESU KISER [facility] [id number] [facility] 2020-11-09 00:00:00 2020-11-09 00:00:00 Orders Only Doctor Unassigned, Rew [facility] 1.114 350.1.13.10 4.2.7.2.686 [id number] [facility] 2020-10-13 12:26:00 2020-10-13 12:26:00 Outpatient [id number] U VFP VFP [id number] [facility] e 2020-10-11 00:00:00 2020-10-11 00:00:00 Claudy Grey MD: [id number] [facility] [place] [facility], [address], [place] [address] , Ph. Felizel_T VFP [place] - [facility] - VM_HOU_Shad ow [place] [id number] [facility] 2020-10-11 00:00:00 2020-10-11 00:00:00 Orders Only Doctor Unassigned, Rew [facility] 1.114 350.1.13.10 4.2.7.2.686 [id number] [facility] 2020-10-10 02:11:00 2020-10-10 02:11:00 Outpatient Felizjhonathan_T VFP VFP [id number] [facility] e 2020-10-03 00:00:00 2020-10-03 00:00:00 Telephone Team, [facility] .114 350.1.13.10 4.2.7.2.686 [id number] [facility] 2020-09-02 09:14:53 2020-09-02 09:34:53 Laboratory Only Lab, Adc Fam Hankb Sukhdev Sargent [facility] Office Building One .114 350.1.13.10 4.2.7.2.686 [id number] [facility] 2020-09-02 09:20:00 2020-09-02 09:20:00 Outpatient R [facility] [id number] [facility] 2020-08-14 13:40:00 2020-08-14 13:40:00 Outpatient R YURIDIA ARRIOLA [facility] [id number] [facility] 2020-08-14 10:39:52 2020-08-14 10:54:52 Laboratory Only Only, Adc Test RashelJesu byrne Arsenio [facility] 1.2840.114 350.1.13.10 4.2.7.2.686 [id number] [facility] 2020-07-25 00:00:00 2020-07-25 00:00:00 Orders Only Doctor Unassigned, Rew [facility] 1.2840.114 350.1.13.10 4.2.7.2.686 [id number] [id number] 2020-07-25 00:00:00 2020-07-25 00:00:00 Orders Only Doctor Unassigned, Rew [facility] 1.2.840.114 350.1.13.10 4.2.7.2.686 [id number] [id number] [facility] 2020-07-24 14:03:59 2020-07-24 14:18:59 String Cutter Visit Alie Layne Lab Main [facility] 1.2840.114 350.1.13.10 4.2.7.2.686 [id number] 2020-07-24 14:03:59 2020-07-24 14:18:59 String Cutter Visit Alie Layne Lab Main Gabriela Luong [facility] 1.2840.114 350.1.13.10 4.2.7.2.686 [id number] [facility] 2020-07-24 10:00:00 2020-07-24 10:00:00 Outpatient R MENDOZAOSATA, GABRIELA [facility] [id number] [facility] 2020-07-19 06:36:00 2020-07-19 06:36:00 Outpatient Bui_Q_WAG VFP VFP [id number] [facility] e 2020-07-14 00:00:00 2020-07-14 00:00:00 Claudy Grey MD: [address], [address], [place] [address] , Ph. Que_T VFP [place] - [facility] Medical - VM_HOU_Shad ow [place] [id number] [facility] e 2020-06-02 08:00:00 2020-06-02 08:00:00 Outpatient MELANIA HELLER [facility] [id number] [facility] 2020-05-28 17:04:02 2020-05-28 17:24:02 Urgent Care Provider, [facility] Office Building One 1..114 350.1.13.10 4.2.7.2.686 [id number] 2020-05-28 17:04:02 2020-05-28 17:24:02 Urgent Care Provider, [facility] Napoleon Sukhdev [facility] Office Building One 1..114 350.1.13.10 4.2.7.2.686 [id number] [facility] 2020-05-28 17:20:00 2020-05-28 17:20:00 Outpatient Jannie BENDER SUKHDEV [facility] [id number] [facility] 2020-05-16 00:00:00 2020-05-16 00:00:00 Patient Secure Msg Doctor Unassigned, Rew [facility] 1.0.114 350.1.13.10 4.2.7.2.686 [id number] [facility] 2020-05-15 15:04:50 2020-05-15 15:19:50 String Cutter Visit Pob, Adc Lab Main [facility] Building 1.2840.114 350.1.13.10 4.2.7.2.686 [id number] 2020-05-15 15:04:50 2020-05-15 15:19:50 String Cutter Visit Pob, Adc Lab Main Jesu Kiser [facility] Building 1.2840.114 350.1.13.10 4.2.7.2.686 [id number] [facility] 2020-05-15 15:00:00 2020-05-15 15:00:00 Outpatient JESU SAWYER [facility] [id number] [facility] 2020-05-15 00:00:00 2020-05-15 00:00:00 Orders Only Doctor Unassigned, Rew [facility] 1.2840.114 350.1.13.10 4.2.7.2.686 [id number] [id number] 2020-05-15 00:00:00 2020-05-15 00:00:00 Orders Only Doctor Unassigned, Rew [facility] 1.2.840.114 350.1.13.10 4.2.7.2.686 [id number] [facility] 2020-05-12 17:00:00 2020-05-12 17:00:00 Outpatient MELANIA HELLER [facility] [id number] [facility] 2020-05-10 10:00:00 2020-05-10 10:00:00 Outpatient GABRIELA GRULLON [facility] [id number] [facility] 2020-05-05 14:37:30 2020-05-05 14:52:30 Laboratory Only Only, Adc Test [facility] 1.2840.114 350.1.13.10 4.2.7.2.686 [id number] 2020-05-05 14:37:30 2020-05-05 14:52:30 Laboratory Only Only, Adc Test Gabriela Luong [facility] 1.2.840.114 350.1.13.10 4.2.7.2.686 [id number] [facility] 2020-05-05 14:45:00 2020-05-05 14:45:00 Outpatient R [facility] [id number] [facility] 2020-04-15 01:55:00 2020-04-15 01:55:00 Outpatient Bui_Q_WAG VFP VFP [id number] [facility] 2020-04-11 00:00:00 2020-04-11 00:00:00 Claudy Grey MD: [address] [address] , Ph. Daniel_T VFP [facility] - VM_HOU_Dani el [id number] [facility] 2020-04-10 05:10:00 2020-04-10 05:10:00 Outpatient Daniel_T VFP VFP [id number] [facility] 2020-04-04 11:25:00 2020-04-04 11:25:00 Outpatient Bui_Q_WAG VFP VFP [id number] [facility] 2020-03-07 11:00:00 2020-03-06 11:00:00 [id number] [facility] 2020-02-01 08:33:57 2020-02-01 08:48:57 String Cutter Visit Potea, [facility]c [facility] 1.2.840.114 350.1.13.10 4.2.7.2.686 [id number] 2020-02-01 08:33:57 2020-02-01 08:48:57 String Cutter Visit Pob, Adc Lab Main Gabriela Luong [facility] Building 1.2840.114 350.1.13.10 4.2.7.2.686 [id number] [facility] 2020-02-01 07:30:00 2020-02-01 07:30:00 Outpatient GABRIELA GRULLON [facility] [id number] [facility] 2020-02-01 00:00:00 2020-02-01 00:00:00 Orders Only Doctor Unassigned, Rew [facility] 1.2.840.114 350.1.13.10 4.2.7.2.686 [id number] [id number] 2020-02-01 00:00:00 2020-02-01 00:00:00 Orders Only Doctor Unassigned, Rew [facility] 1.2.840.114 350.1.13.10 4.2.7.2.686 [id number] [id number] [facility] 2020-01-13 14:54:12 2020-01-13 15:28:24 Nurse Visit Rashel Asianat [facility] Office Building One 1.2840.114 350.1.13.10 4.2.7.2.686 [id number] 2020-01-13 14:54:12 2020-01-13 15:28:24 Nurse Visit Rashel Asianat [facility] Office Building One 1.2840.114 350.1.13.10 4.2.7.2.686 [id number] [facility] 2020-01-13 15:00:00 2020-01-13 15:00:00 Outpatient R JESU KISER [facility] [id number] [facility] 2020-01-05 10:45:00 2020-01-05 23:59:00 Hospital Encounter Jesu Kiser [facility] 1.2.840.114 350.1.13.10 4.2.7.2.686 [id number] [facility] 2020-01-05 00:00:00 2020-01-05 00:00:00 Outpatient JESU SAWYER [facility] [id number] [facility] 2020-01-05 00:00:00 2020-01-05 00:00:00 Orders Only Doctor Unassigned, Rew [facility] 1.0.114 350.1.13.10 4.2.7.2.686 [id number] [id number] [facility] 2020-01-03 13:16:48 2020-01-03 14:12:27 Office Visit PoloJesu byrne [facility] Office Building One 1.114 350.1.13.10 4.2.7.2.686 [id number] 2020-01-03 13:16:48 2020-01-03 14:12:27 Office Visit RashelAsia byrnekarenlorena [facility] Office Building One 1.114 350.1.13.10 4.2.7.2.686 [id number] [facility] 2020-01-03 13:30:00 2020-01-03 13:30:00 Outpatient ASIA SAWYERNAT [facility] [id number] [facility] 2019-12-29 12:00:00 2019-12-29 12:00:00 Outpatient Jeanine Mullen [facility] [id number] [facility] 2019-12-22 14:45:00 2019-12-22 14:45:00 Outpatient ANG ESTRADA [facility] [id number] [facility] 2019-12-22 13:07:36 2019-12-22 13:22:36 String Cutter Visit 2, [facility] Lab Ang Schilling [facility] nal Building 1.114 350.1.13.10 4.2.7.2.686 [id number] [facility] 2019-12-22 00:00:00 2019-12-22 00:00:00 Orders Only Doctor Unassigned, Rew [facility] 1..840.114 350.1.13.10 4.2.7.2.686 [id number] [facility] 2019-11-21 20:00:00 2019-11-21 20:00:00 Outpatient R NONA ROMERO [facility] [id number] [facility] 2019-11-19 07:15:00 2019-11-19 07:15:00 Outpatient R ZAKIA BARRERA [facility] [id number] [facility] 2019-11-19 00:00:00 2019-11-19 00:00:00 Orders Only Doctor Unassigned, Rew [facility] 1..840.114 350.1.13.10 4.2.7.2.686 [id number] [facility] 2019-11-04 07:00:00 2019-11-04 07:00:00 Outpatient Jeanine Palm [facility] [id number] [facility] 2019-10-28 12:00:00 2019-10-28 12:00:00 Outpatient JHONATHAN Gibbsantonio Jeanine [facility] JACK [id number] [facility] 2019-10-14 08:00:00 2019-10-14 08:00:00 Outpatient R [facility] [id number] [facility] 2019-10-14 00:00:00 2019-10-14 00:00:00 Telephone Den Francis [facility] 1..840.114 350.1.13.10 4.2.7.2.686 [id number] [facility] 2019-10-12 13:16:55 2019-10-12 13:36:55 Urgent Care Pob1, [facility] 1.114 350.1.13.10 4.2.7.2.686 [id number] [facility] 2019-10-12 13:20:00 2019-10-12 13:20:00 Outpatient R [facility] [id number] [facility] 2019-07-21 00:00:00 2019-07-21 00:00:00 Telephone Polo, Jesu [facility] Building 1.114 350.1.13.10 4.2.7.2.686 [id number] [facility] 2019-07-20 00:00:00 2019-07-20 00:00:00 Orders Only Doctor Unassigned, Rew [facility] 1.114 350.1.13.10 4.2.7.2.686 [id number] [facility] 2019-05-27 08:50:43 2019-05-27 09:05:43 String Cutter Visit Pob, Adc Lab Main Nestor Galorasheeda Dye [facility] Building 1.114 350.1.13.10 4.2.7.2.686 [id number] [facility] 2019-05-27 08:45:00 2019-05-27 08:45:00 Outpatient R GALO BAILEY [facility] [id number] [facility] 2019-05-27 00:00:00 2019-05-27 00:00:00 Orders Only Doctor Unassigned, Rew [facility] 1.114 350.1.13.10 4.2.7.2.686 [id number] [facility] 2019-05-18 11:12:41 2019-05-18 11:41:53 Office Visit Rashel Jesu Arsenio [facility] Office Building One 1.114 350.1.13.10 4.2.7.2.686 [id number] [facility] 2019-05-06 15:35:30 2019-05-06 15:50:30 String Cutter Visit 2, Adc Lab Jesu Kiser [facility] Building 1.2.840.114 350.1.13.10 4.2.7.2.686 [id number] [facility] 2019-05-06 15:45:00 2019-05-06 15:45:00 Outpatient R JESU KISER [facility] [id number] [facility] 2019-05-06 00:00:00 2019-05-06 00:00:00 Telephone Jesu Kiser [facility] Office Building One 1.840.114 350.1.13.10 4.2.7.2.686 [id number] [facility] 2019-05-06 00:00:00 2019-05-06 00:00:00 Orders Only Doctor Unassigned, Rew [facility] 1.2.840.114 350.1.13.10 4.2.7.2.686 [id number] [facility] 2019-05-04 16:21:00 2019-05-04 16:21:00 Office Visit Jesu Kiser [facility] Office Building One 1.0.114 350.1.13.10 4.2.7.2.686 [id number] [facility] 2019-02-23 12:11:06 2019-02-23 23:59:00 Outpatient R RADIOLOGY [facility] [id number] [facility] 2019-02-10 00:00:00 2019-02-10 00:00:00 Angélica Evans MD: [address] [place] [address], [address], [place] [address] , [facility]. [facility] [id number] 1023 [facility] 2019-02-05 12:30:00 2019-02-05 12:30:00 Outpatient R JESU KISER [facility] [id number] [facility] 2018-12-22 12:01:47 2018-12-22 23:59:00 Hospital Encounter Jesu Kiser [facility] 1.2.840.114 350.1.13.10 4.2.7.2.686 [id number] [facility] 2018-12-22 10:59:24 2018-12-22 11:43:56 Office Visit Jesu Kiser [facility] Office Building One 1.2.840.114 350.1.13.10 4.2.7.2.686 [id number] [facility] 2018-12-22 00:00:00 2018-12-22 00:00:00 Letter (Out) Jesu Kiser [facility] Office Building One 1.2.840.114 350.1.13.10 4.2.7.2.686 [id number] [id number] [facility] 2018-12-10 10:58:48 2018-12-10 11:35:03 Office Visit Jesu Kiser [facility] Office Building One 1.2840.114 350.1.13.10 4.2.7.2.686 [id number] [facility] 2018-12-10 00:00:00 2018-12-10 00:00:00 Orders Only Doctor Unassigned, Rew [facility] 1.2.840.114 350.1.13.10 4.2.7.2.686 [id number] [id number] [facility] 2018-11-17 12:51:29 2018-11-17 13:06:29 String Cutter Visit 1, Adc Lab Galo Bailey [facility] 1.20.114 350.1.13.10 4.2.7.2.686 [id number] [facility] 2018-11-17 00:00:00 2018-11-17 00:00:00 Orders Only Doctor Unassigned, Rew [facility] 1.2840.114 350.1.13.10 4.2.7.2.686 [id number] [id number] [facility] Results Test Description Test Time Test Comments Results Result Co mments Source [facility] [Mass/volume] in Capillary [id number] 11:05:52* Test Item Value Reference Range Interpretation Comme nts Blood Glucose: mg/dl (test c ode = Blood Glucose: mg/dl) 103 [facility] HospitalPO[facility] SARS-COV-2 ANTIGEN (BINAX NOW)2023-05-06 17:08:00* Test Item Value Reference Range Interpretation Comme nts POCT SARS-COV-2 ANTIGEN (silas t code = 13639-0) Not Detected Not Detected On board controls acceptable with C Line (test code = 3574) Yes Lab Interpretation (test cod e = 20244-9) Normal [facility] Hospital[facility]IP[facility] (65029)(TOTAL CHOLESTEROL, TRIGLYCERIDES, HDL)2022-10-04 16:37:22* Test Item Value Reference Range Interpretation Comme nts CHOL (test code = 6841750939) 179 mg/dL 120-200 HDL (test code = 7913966902) 105 mg/dL >=50 HDLC RATIO (test code = 1596806544) 1.7 <=4.5 TRIG (test code = 9279535981) 58 mg/dL 30-170 LDL CHOL (test code = 00595-8) 62 mg/dL <=160 VLDL (test code = 5668153791) 12 mg/dL 5-60 Lab Interpretation (test cod e = 29932-9) Normal [facility] HospitalTHYROID STIMULATING [id number] 16:32:43 * Test Item Value Reference Range Interpretation Comme nts TSH (test code = 3001608544) 1.45 See_Comment [Automated messa ge] The system which generated this result transmitted reference range: 0.45 - 4.70 mIU/L. The reference range was not used to interpret this result as normal/abnormal. Lab Interpretation (test code = 38517-9) Normal [facility] HospitalGLYCOSYLATED HEMOGLOBIN (A1C)2022-10-04 15:54:07* Test Item Value Reference Range Interpretation Comme nts HGB A1C (test code = 4548-4) 6.7 % 4.0-5.7 H ZAIRA (test code = ZAIRA) Reference RangesNormal: <5.7%Prediabetes: 5.7 - 6.4%Diabetes: > 6.5% Lab Interpretation (test code = 91133-3) Abnormal [facility] Hospital[facility]emoglobin A1c measurement device panel 2022-02-05 13:43:31* Test Item Value Reference Range Interpretation Comme nts Hemoglobin A1c/Hemoglobin.to lyle in Blood (test code = 4548-4) 8.2 % 5.7-6.4 [facility] [Mass/volume] in Capillary [id number] 13:39:45* Test Item Value Reference Range Interpretation Comme [facility] Blood Glucose: mg/dl (test c ode = Blood Glucose: mg/dl) 103 [facility] Family PracticeGlucose [Mass/volume] in Capillary [id number] 16:22:01* Test Item Value Reference Range Interpretation Comme [facility] Blood Glucose: mg/dl (test c ode = Blood Glucose: mg/dl) 107 [facility] Family PracticeGlucose [Mass/volume] in Capillary [id number] 16:22:01* Test Item Value Reference Range Interpretation Comme nts Blood Glucose: mg/dl (test c ode = Blood Glucose: mg/dl) 107 [facility] PracticeHemoglobin A1c measurement device [id number] 10:43:27* Test Item Value Reference Range Interpretation Comme [facility] Hemoglobin A1C Fingerstick: (test code = Hemoglobin A1C Fingerstick:) 7.0 [facility] Family PracticeGlucose [Mass/volume] in Capillary [id number] 10:39:53* Test Item Value Reference Range Interpretation Comme [facility] Blood Glucose: mg/dl (test c ode = Blood Glucose: mg/dl) 256 [facility] PracticeHemoglobin A1c measurement device [id number] 15:03:04* Test Item Value Reference Range Interpretation Comme [facility] Hemoglobin A1C Fingerstick: (test code = Hemoglobin A1C Fingerstick:) 8.1 [facility] PracticeGlucose [Mass/volume] in Capillary [id number] 15:02:56* Test Item Value Reference Range Interpretation Comme [facility] Blood Glucose: mg/dl (test c ode = Blood Glucose: mg/dl) 136 [facility] PracticeENDOMETRIUM,[id number] 16:42:00* Test Item Value Reference Range Interpretation Comme [facility] ENDOMETRIUM,BIOPSY (test code = ENDOMETBX) RUN DATE: 03/09/20 [facility] PAGE 1 RUN TIME: 1751 Specimen Inquiry RUN USER: INTERFACE PATIENT: SIDNEY ROBERTSON [facility] #: [id number] AGE/SX: ROOM: [facility] RE03/07/20REG DR: Mikki Scott MD : 86 BED: A DIS: 03/08/20 STATUS: DIS Jack TLOC: SPEC #: [id number] RECD: 03/08/20 STATUS: CHELSEA HAWKINS #: [id number] EARLE: 03/08/20- SUBM DR: Mikki Scott MD ENTERED: 03/08/20 SP TYPE: ENDOMETBX OTHR DR: ORDERED: LEVEL IV CODES: [id number] - ENDOMETRIUM, NO PROCEDURES: LEVEL IV (Incomplete) [...] - no significant pathologic alteration CPT code(s): 37613 x6, 23533 [facility]/wpd CONTINUED ON NEXT PAGE RUN DATE: 03/09/20 [facility] PAGE 2 RUN TIME: 1751 Specimen Inquiry RUN USER: INTERFACE SPEC #: [id number] PATIENT: SIDNEY ROBERTSON #[id number] (Continued) GROSS DESCRIPTION ANATOMIC SOURCE OF TISSUE [...] with fimbriae. Sectioning reveals a pinpoint lumen. English Instructor sections are submitted as follows: CONTINUED ON NEXT PAGE RUN DATE: 03/09/20 [facility] PAGE 3 RUN TIME: 1751 Specimen Inquiry RUN USER: INTERFACE SPEC #: [id number] PATIENT: AILYNSIDNEY #[id number] (Continued) GROSS DESCRIPTION (Continued) G1 - serosal adhesions and fatty tissue G2 - anterior cervix G3 - posterior cervix G4 - anterior endometrium G5 - posterior endometrium G6 - right fallopian tube G7 - left fallopian tube michelle 03/08/20 Signed Mariam Aparicio MD 03/09/20 1642 END OF REPORT CBC W/AUTO [id number] 06:58:00* Test Item Value Reference Range Interpretation Comme nts WHITE BLOOD CELL (test code = WBC) [...] pg 27-35 N MEAN CELL HGB CONCETRATION ( test code = MCHC) 32.8 gm/dL 32.2-34.1 N RED CELL DISTRIBUTION WIDTH (test code = RDW) 12.1 % 12.4-16.5 L PLATELET COUNT (test code = PLT) 148 K/mm3 133-385 N MEAN PLATELET VOLUME (test c ode = MPV) 13.9 fl 9.1-12.7 H NEUTROPHIL % (test code = NT%) 74.7 [...] = BA#) 0.1 K/mm3 RBC MORPHOLOGY REQUIRED (silas t code = RBCM) NORMAL NORMAL PLATELET MORPHOLOGY REQUIRED (test code = PLTMR) NORMAL NORMAL [id number] 06:50:00* Test Item Value Reference Range Interpretation Comme nts GLUBED (test code = GLUBED) 130 mg/dL 65-110 H [id number] 23:39:00* Test Item Value Reference Range Interpretation Comme nts GLUBED (test code = GLUBED) 266 mg/dL 65-110 H [id number] 17:06:00* Test Item Value Reference Range Interpretation Comme nts GLUBED (test code = GLUBED) 219 mg/dL 65-110 H [id number] 14:17:00* Test Item Value Reference Range Interpretation Comme nts GLUBED (test code = GLUBED) 135 mg/dL 65-110 H [id number] 09:59:00* Test Item Value Reference Range Interpretation Comme nts GLUBED (test code = GLUBED) 110 mg/dL 65-110 N AG HEPATITIS B [id number] 14:47:00* Test Item Value Reference Range Interpretation Comme nts AG HEPATITIS B SURFACE (test code = HBSAG) NONREACTIVE NONREACTIVE IS CONSENT FORM SIGNED FOR HIV TESTING? YAB HEPATITIS C [id number] 14:47:00* Test Item Value Reference Range Interpretation Comme nts AB HEPATITIS C (test code = HCVAB) NONREACTIVE NONREACTIVE SIGNAL TO CUTOFF (test code = CUTOFF) 0.09 <0.80 N IS CONSENT FORM SIGNED FOR HIV TESTING? YAB HIV 1 14:47:00* Test Item Value Reference Range Interpretation Comme nts AB HIV 1 2 (test code = TAI22TC) NONREACTIVE NONREACTIVE Done by Siemens Gonna[employer]aur 4th Gen HIV Ag/Ab Combo Screen IS CONSENT FORM SIGNED FOR HIV TESTING? YAG HEPATITIS B [id number] 14:15:00* Test Item Value Reference Range Interpretation Comme nts AG HEPATITIS B SURFACE (test code = HBSAG) NONREACTIVE NONREACTIVE IS CONSENT FORM SIGNED FOR HIV TESTING? YAB HEPATITIS C [id number] 14:15:00* Test Item Value Reference Range Interpretation Comme nts AB HEPATITIS C (test code = HCVAB) NONREACTIVE SIGNAL TO CUTOFF (test code = CUTOFF) <0.80 IS CONSENT FORM SIGNED FOR HIV TESTING? YAB HIV 1 14:15:00* Test Item Value Reference Range Interpretation Comme nts AB HIV 1 2 (test code = [id number]) NONREACTIVE IS CONSENT FORM SIGNED FOR HIV TESTING? YURINALYSIS [id number] 14:14:00 * Test Item Value Reference Range Interpretation Comme nts UA COLOR (test code = COLU) YELLOW YELLOW UA APPEARANCE (test code = APPU) Slightly-Cloudy CLEAR UA GLUCOSE DIPSTICK (test code = DGLUU) NEGATIVE NEG UA BILIRUBIN DIPSTICK (test code = BILU) NEGATIVE NEG UA KETONE DIPSTICK (test cod e = KETU) 1+ NEG A UA SPECIFIC GRAVITY (test code = SGU) 1.020 1.001-1.035 N UA BLOOD DIPSTICK (test code = BHARGAVI) NEG NEG UA PH DIPSTICK (test code = DANNI) 7.0 5-9 UA PROTEIN DIPSTICK (test code = PROU) 1+ NEG A UA UROBILINIOGEN DIPSTICK (test code = URO) NEGATIVE mg/dL NEG UA NITRITE DIPSTICK (test code = DEMETRIUS) NEG NEG UA LEUKOCYTE ESTERASE DIPSTICK (test code = LEUU) NEG NEG UA WBC (test code = WBCU) 3-5 #/hpf NONE SEEN A UA RBC (test code = RBCU) 0-2 #/hpf NONE SEEN UA EPITHELIAL CELLS (test code = EPIU) RARE #/HPF RARE-FEW UA BACTERIA (test code = BACU) RARE /HPF RARE-FEW UA MUCUS (test code = MUCU) 4+ NONE SEEN URINE SAMPLE: CLEAN CATCHCOVID 19 Asymptomatic IH [id number] 13:50:00* Test Item Value Reference Range Interpretation Comme nts COVID 19 Asymptomatic IH AG (test code = COVNONPUIAG) NEGATIVE NEGATIVE This test has be en authorized only for the detection ofproteins from SARS-CoV-2, not for any other viruses orpathogens. Negative results should be treated as presumptive andconfirmed with a molecular assay, if necessary for patientmanagement. Negative results do not rule out COVID-19 andshould not be used as the sole basis for treatment orpatient management decisions, including infection controldecisions. Negative results should be considered in thecontext of a patient's recent exposures, history and thepresence of clinical signs and symptoms consistent withCOVID-19. This test has not been FDA cleared or approved; the test hasbeen authorized by FDA under an Emergency Use Authorization(EUA) for use by laboratories certified under the CLIA thatmeet the requirements to perform moderate, high or waivedcomplexity tests. This test is authorized for use at thePoint of Care (POC), i.e., in patient care settingsoperating under a CLIA Certificate of Waiver, Certificate ofCompliance, or Certificate of Accreditation. This test is only authorized for the duration of thedeclaration that circumstances exist justifying theauthorization of emergency use of in vitro diagnostic testsfor detection and/or diagnosis of COVID-19 under Mgcceby051(b)(1) of the Act, 21 U.S.C. 360bbb-3(b)(1), unless theauthorization is terminated or revoked sooner. HCG SERUM [id number] 13:43:00* Test Item Value Reference Range Interpretation Comme nts HCG SERUM QUAL (test code = HCGQL) NEGATIVE CBC W/AUTO [id number] 13:22:00* Test Item Value Reference Range Interpretation Comme nts WHITE BLOOD CELL (test code = WBC) [...] pg 27-35 N MEAN CELL HGB CONCETRATION ( test code = MCHC) 32.3 gm/dL 32.2-34.1 N RED CELL DISTRIBUTION WIDTH (test code = RDW) 11.8 % 12.4-16.5 L PLATELET COUNT (test code = PLT) 169 K/mm3 133-385 N MEAN PLATELET VOLUME (test c ode = MPV) 13.6 fl 9.1-12.7 H NEUTROPHIL % (test code = NT%) 68.6 [...] = BA#) 0.0 K/mm3 RBC MORPHOLOGY REQUIRED (silas t code = RBCM) NORMAL NORMAL PLATELET MORPHOLOGY REQUIRED (test code = PLTMR) NORMAL NORMAL - DUP AB/PEL/SC/[id number] 07:44:00Patient Name: SIDNEY ROBERTSON Unit No: [id number] EXAMS: CPT CODE: [id number] DUP AB/PEL/SC/LTD 14238 CLINICAL HISTORY: Pelvic pain. COMPARISON: August 21, [...] ovary. No extraovarian mass is noted. There isno significant free fluid in the pelvis. IMPRESSION: Unremarkable pelvic sonogram. at 0744 Reported and signed by: Deion Burr MD CC: Jeanine Palm MD Technologist: Janelle Sam RDMS Probe: Trnscrbd D/ (0744) t.SDR.YOS Orig Print D/T: S: 11/04/2019 (0747) [facility] NAME: SIDNEY ROBERTSON Radiology Department PHYS: Abram Jeanine Palm [address] : 1990 AGE: 29 SEX: F [place] [address] LOC: Louie.RAD PHONE #: [phone] EXAM DATE: 11/04/2019 STATUS: REG CLI FAX #: [phone] RAD NO: Page 1 Signed Report Patient Name: AILYNAMIESIDNEY A Unit No:[id number] EXAMS: CPT CODE: [id number] DUP AB/PEL/SC/LTD 72253 (Continued) [facility] NAME: SIDNEY ROBERTSON Radiology [facility] Palm [address] : 1990 AGE: 29 SEX: F [place] [address] LOC: MargarethRAD PHONE #: [phone] EXAM DATE: 11/04/2019 STATUS: REG CLI FAX #: [phone] RAD NO: Page 2 Signed Report- US PELVIS COMPLETE 2019-11-04 07:44:00Patient Name: SIDNEY ROBERTSON Unit No: [id number] EXAMS: CPT CODE: [id number] US PELVIS [id number] CLINICAL HISTORY: Pelvic pain. COMPARISON: August 21, [...] Janelle Sam RDMS Probe: Trnscrbd D/ (0744) t.DANER.YOS Orig Print D/T: S: 11/04/2019 (0747) [facility] NAME: SIDNEY ROBERTSON Radi ology Department PHYS: Jeanine Wills [address] : 1990 AGE: 29 SEX: F [place] [address] LOC: F.RAD PHONE #: [phone] EXAM DATE: 11/04/2019 STATUS: REG CLI FAX #: [phone] RAD NO: Page 1 Signed Report Patient Name: SIDNEY ROBERTSON Unit No: [id number] EXAMS: CPT CODE: [id number] US PELVIS COMPLETE 59891 (Continued) [facility] NAME: SIDNEY ROBERTSON Radiology Department PHYS: CIARA Jeanine Palm [address] : 1990 AGE: 29 SEX: F [place] [address] LOC: F.RAD PHONE #: [phone] EXAM DATE: 11/04/2019 STATUS: REG CLI FAX #: [phone] RAD NO: Page 2 Signed Report- US TRANSVAGINAL W/YMHWTL8659-64-73 07:44:00Patient Name: SIDNEY ROBERTSON Unit No: [id number] EXAMS: CPT CODE: [id number] US TRANSVAGINAL W/PELVIS 48052 CLINICAL HISTORY: Pelvic pain. COMPARISON: August 21, [...] are present in lower uterine segment. The rightovary measures 27 x 18 x 23 mm [...] Palm MD Technologist: Janelle Sam RDMS Probe: [id number] Trnscrbd D/ (0744) tKRISTOPHER Orig Print D/T: S: 11/04/2019 (0747) [facility] NAME: SIDNEY ROBERTSON Radiology Department PHYS: Jeanine Wills [address] : 1990 AGE: 29 SEX: F [place], [place] [address] LOC: Louie.RAD PHONE #: [phone] EXAM DATE: 11/04/2019 STATUS: REG CLI FAX #: [phone] RAD NO: Page 1 Signed Report Patient Name: SIDNEY ROBERTSON Unit No: [id number] EXAMS: CPT CODE: [id number] US TRANSVAGINAL W/PELVIS 55509 (Continued) [facility] NAME: SIDNEY ROBERTSON Radiology Department PHYS: Jeannie Wills [address] : 1990 AGE: 29 SEX: F [place], [place] [address] LOC: MargarethRAD PHONE #: [phone] EXAM DATE: 11/04/2019 STATUS: REG CLI FAX #: [phone] RAD NO: Page 2 Signed Report Notes Date/Time Note Provider Source 2023-05-06 11:00:00 HNu49dFa+9Bi3Wr70e5v hfpV23by6aa4V9+DTCZtQx jqbE6qFKmCtqEB6Rp1Dg1i8832-37-93Y47:00:00F ormatting of this note might be different from the original.Patient verbally consented to testing and was provided with the EUA Factsheet: Alonzo Binax COVID 19 antigen testAppropriate PPE worn to collect and run test 92166-6Lftpx FideZD5443-17-52O76:59:43Nurse NoteTXT1.2.840.501534.1.13.104.2.7.2.06332 9|[id number] for patient gpxu73143-3Fcrlm NoteLNNARRATIVEFormatted C-CDA narrative text[address] BxryQ[id number] FVTCIRASAMXHVZHV5005-08-93C38:59:431.2.840 .973350.1.72.3.15|1.2.840.080698.1.13.104. 2.7.2.727879_2000015145 [facility] 2020-03-08 08:33:00 QDfxyybijbz05415642N PC8fz5o6zwu5f2xihmlpnQ BHD2OcYFTnvoYvXu3w8U9l3vbhjynluelBi4+0czf2 844-97-31A23:33:00 [facility] ([facility])Gynecology Post Prog NoteREPORT#:[id number] REPORT STATUS: SignedDATE:03/08/20 TIME: 832 PATIENT: SIDNEY ROBERTSON UNIT #: [id number]#: [id number] ROOM/BED: [facility]-ADOB: [birth year] AGE: 29 SEX: F ATTEND: Mikki Scott MDADM AUTHOR: Mikki Scott MD * ALL edits or amendments must be made on the electronic/computer document * GeneralPost-op: day 1Status post:RATLHBS, EOE SubjectiveComments:Pt tang reg diet. Pain controlled with Tyl#3 but had itching - controlled with Benadryl. Voiding well. Objective GeneralVS/I O:Last Documented: Result Date Time Pulse Ox 97 03/08 0745 B/P 102/68 03/08 0745 B/P Mean 79.3 03/08 0745 Temp 97.9 03/08 0745 Pulse 99 03/08 0745 Resp 16 03/08 0745 O2 Delivery Room air 03/08 0305 O2 Flow Rate 10 03/07 1400 24 hour I O ending at 0700: 03/08 0700 03/07 1900 Intake Total 375.00 1050.00 Output Total 700 625 Balance -325.00 425.00 Intake, IV 375.00 1050.00 Number Voids 1 Output, 100 Estimated Blood Loss Output, Urine 700 525 Patient 79 kg Weight Weight Standing scale Measurement Method Patient Weight Weight (lb): 174Weight (oz): 2.64Weight (kg): 79.000 Physical ExamGeneral appearance: alert, awakeWound/incision: Location:abd Site condition: edges approximated, incision intact, no changes in wound, no drainageAbdomen: normal bowel sounds, soft, no distention ResultsFindings/Data:Laboratory Tests 03/08 03/07 03/07 03/07 03/07 0638 2326 1654 1404 0943 Chemistry POC Glucose (65 - 110 mg/dL) 130 H 266 H 219 H 135 H 110 Laboratory Tests 03/08 0540 Hematology WBC (6.6 - 12.1 K/mm3) 10.1 RBC (3.45 - 5.01 M/mm3) 3.77 Hgb (10.7 - 13.9 g/dL) 11.5 Hct (32.1 - 42.1 %) 35.1 MCV (84.1 - 94.8 fL) 93 MCH (27 - 35 pg) 30.5 MCHC (32.2 - 34.1 gm/dL) 32.8 RDW (12.4 - 16.5 %) 12.1 L Plt Count (133 - 385 K/mm3) 148 MPV (9.1 - 12.7 fl) 13.9 H Neut % (Auto) (56.5 - 79.4 %) 74.7 Lymph % (Auto) (14.3 - 34.3 %) 15.5 Grayson % (Auto) (5.1 - 10.4 %) 7.0 Eos % (Auto) (0.1 - 3.0 %) 1.8 Baso % (Auto) (0.1 - 1.0 %) 0.6 Neut # (Auto) (K/mm3) 7.5 Lymph # (Auto) (K/mm3) 1.6 Grayson # (Auto) (K/mm3) 0.7 Eos # (Auto) (K/mm3) 0.18 Baso # (Auto) (K/mm3) 0.1 Diagnosis, Assessment PlanFree Text A P:Doing well. HD stable. Good U/O and GI fxn. Plan: Cont reg dietPO pain medsD/C laterPrecautions given at 0834 [facility] #:[id number] OF REPORT PRProgress Hroe6996-64-95F97:33:00F.STVN36709467-1828 AVAvailable for patient qsogDGQJMBZIWUFTSB6135-71-39E81:35:21 [facility] 2020-03-07 14:44:00 TQciazmbsbt17881970p FiAE8kAuqcX/13RrAQi3QD wqFmtn37VLXIcNGcTr+V8LT+WbhFUEwLe8+F9CpOD8 076-49-28U28:44:935192-9738 [facility] [address] [address] PATIENT NAME: SIDNEY ROBERTSON ADMIT DATE: 03/07/20ACCOUNT NO: [id number] ROOM NO: 2646 AGE: 30 SEX: F ADMITTING PHYSICIAN: Mikki Scott MD ATTENDING PHYSICIAN: Mikki Scott MD OPERATION DATE: 03/07/2020 PREOPERATIVE DIAGNOSES:1. Menorrhagia.2. History of anemia.3. Pelvic pain.4. Dysmenorrhea.5. Dyspareunia.6. Dyschezia. POSTOPERATIVE DIAGNOSES:1. Menorrhagia.2. History of anemia.3. Pelvic pain.4. Dysmenorrhea.5. Dyspareunia.6. Dyschezia.7. Endometriosis. PROCEDURES:1. Robotically assisted total laparoscopic hysterectomy with bilateralsalpingectomy.2. Robotically assisted laparoscopic excision of endometriosis. SURGEON: Mikki Scott MD GREEN FEED ATTENDANT: Sina Arambula. ANESTHESIA: General. ESTIMATED BLOOD LOSS: 100 mL. INTRAVENOUS FLUIDS: 700 mL. URINE OUTPUT: 200 mL of clear urine. COMPLICATIONS: None. COUNTS: Correct. FINDINGS: An 8-week size uterus, normal tubes and ovaries bilaterally.Endometrial implants on the left pelvic sidewall, left uterosacral ligament,posterior cervix, right pelvic sidewall and left anterior cul-de-sac. PATIENT NAME: SIDNEY ROBERTSON INDICATIONS: The patient is a 29-year-old 2, para 2, who presents withmenorrhagia and anemia. The patient previously required iron transfusions. Thepatient also reports severe pain with dysmenorrhea, dyspareunia and dyschezia.The patient had symptoms suspicious for endometriosis. Risks, benefits, andalternatives were discussed with the patient. The patient agreed to roboticallyassisted total laparoscopic hysterectomy with bilateral salpingectomy withpossible excision of endometriosis. PROCEDURE IN DETAIL: The patient was taken to the OR with IV in place. She wasinduced under general anesthesia without difficulty. The patient was givenAncef preoperatively for prophylaxis as well as Lovenox 40 mg subcutaneously forDVT prophylaxis. The patient was placed in dorsal lithotomy position instirrups. She was prepped and draped in the usual sterile manner. Foleycatheter was placed in bladder sterilely. Anterior lip of the cervix wasgrasped with single-tooth tenaculum. Uterus was gently sounded to 7 cm. Cervixwas gently dilated from size 9 to size 15 using Mook dilators. 6-cm HILARIO uterine manipulator, 3.0 colpotomizer ring, and vaginal occluder were then placed in the uterus, on the cervix, and in the vagina respectively. These were attached to stay sutures. Vaginal occluder was filled with 60 mL of saline. The patient was then placed flat. Attention was then turned to the abdomen. Due to the patient's prior abdominoplasty with the umbilicus not in its normal anatomical position, entry was made in the left upper quadrant. At Lopez's point, an 8-mm transverse incision was made. Using the AirSeal port and 5-mm scope, direct entry into the abdominal cavity was accomplished. CO2 gas was then used to insufflate the abdomen with pressure limit set at 20 mmHg. After pressure limit was achieved, the patient was then placed in Trendelenburg. Survey of the abdomen revealed a small omental adhesion in the midline. Uterus was noted to be approximately 8-week size. Omental adhesions were also noted on the fundus of the uterus. Umbilical port site trocar was placed under direct visualization, which was away from the abdominal wall adhesion. Right lower quadrant port and left lower quadrant ports were also placed under direct visualization, all 8-mm ports. Laparoscope was removed. Pressure limit was dropped to 15 mmHg. The robot was docked. Fenestrated bipolar instrument was placed in left lower quadrant. Monopolar scissors were placed in right lower quadrant. Omental adhesions to anterior abdominal wall were lysed with extreme care to avoid injuring bowel. Adhesions of omentum to the fundus of the uterus were also carefully lysed with extreme care to avoid injuring bowel. The patient had been pretreated with IV Benadryl. ICG dye was then injected intravenously and pelvis was inspected under Firefly mode. Endometrial plain implants were noted on the left pelvic sidewall in close proximity to the ureter. Endometrial nodules were noted on the left uterosacral ligament and posterior cervix. Endometrial implants were also seen on the right pelvic sidewall and left anterior cul-de-sac. Attention was first turned to the anterior cul-de-sac. Bladder was backfilled. Peritoneum was then carefully incised using monopolar scissors with extreme care to avoid injuring bladder. Two separate sites were excised. Attention was then turned to the left pelvic sidewall. Ureter was identified. Incision was then made in the peritoneum. The area of the endometrial implants were carefully circumscribed and carefully excised. A separate area adjacent to the ureter was also carefully circumscribed and carefully excised with extreme care to avoid injuring ureter. A nodule on the left uterosacral ligament was then carefully excised using monopolar scissors. A dense nodule noted on posterior cervix was also carefully excised. Ureter was then identified along the right pelvic sidewall. Incision was made PATIENT NAME: SIDNEY ROBERTSON in peritoneum. Hydrodissection was performed. The majority of the right pelvicsidewall was carefully circumscribed and carefully excised with extreme care toavoid injuring ureter. Good hemostasis was noted. Attention was then turned tothe left round ligament. The left round ligament was cauterized using bipolarinstrument, then divided using monopolar scissors. Left fallopian tube waselevated and mesosalpinx was incised from the fimbriated end to the cornualarea. Left utero-ovarian ligament was then cauterized using bipolar instrument,then divided using monopolar scissors. Bladder was then back filled again. Anterior leaf of the peritoneum was incised and carried out medially to develop the bladder flap. Bladder was dissected off the uterine segment. Uterine vessels on the left were skeletonized on the left side by incising posterior peritoneum. Uterine vessels were cauterized at the level of internal cervical os using bipolar instrument. Attention was then turned to the right side. Right round ligament was cauterized using bipolar instrument and then divided using monopolar scissors. Right fallopian tube was elevated and mesosalpinx was incised from the fimbriated end to the cornual area. Right utero-ovarian ligament was then cauterized using bipolar instrument, and then divided using monopolar scissors. Anterior leaf of the peritoneum was then incised and carried out medially to develop the bladder flap on the right side. Bladder was additionally dissected off lower uterine segment on the right side. Uterine vessels were skeletonized on the right side by incising posterior peritoneum. Uterine vessels were then cauterized at the level of internal cervical os. After assuring that the bladder was well dissected off lower uterine segment, colpotomy was performed at the cervicovaginal junction anteriorly from 10 o'clock to 2 o'clock. Uterine vessels were then cauterized on the right side and were divided using monopolar scissors. Colpotomy was continued posteriorly over to the left side. Left uterine vessels were encountered, were cauterized using bipolar instrument, then divided using monopolar scissors. Colpotomy was completed. Uterus as well as bilateral tubes were delivered through the vagina. A 0 V-Loc suture x2 was introduced in the pelvis. Vaginal cuff was then closed in a running fashion, first starting from left apex over to right apex, second suture from the right apex over to the left apex and the sutures overlapped completely. Sutures were cut flush with the cuff. Pelvis was then thoroughly irrigated and was checked under low pressure. All vascular pedicles were noted to be hemostatic. Ureters were identified bilaterally with good peristalsis noted. All instruments were then removed. Robot was undocked. Pneumoperitoneum was evacuated. Trocars were removed. Umbilical port site fascia was closed using 0 Vicryl interrupted suture. Skin was closed using 4-0 Vicryl interrupted suture in all port sites and sealed with Dermabond. A 0.25% Marcaine was injected in all port sites. Gillis catheter was removed. Speculum exam of the vagina revealed that the cuff was intact and hemostatic. No vaginal lacerations were noted. The patient was removed from dorsal lithotomy position, awoken from general anesthesia without difficulty. Throughout the case, Sina Arambula acted as patient assistant. He provided protection and retraction performed suction for visualization. He participated in positioning the patient as well as closure of the wounds. Without his assistance, the surgery could not been performed safely or to adequate accepted medical standards. Therefore, his assistance was considered medically indicated and necessary. Dictated By: Mikki Scott MD WT: OP:DARVIN/DAMI/ PATIENT NAME: SIDNEY ROBERTSON Conf#: [id number]/DID#: [id number] Authenticated and Edited by Mikki Scott MD On 03/18/20 11:59:49 AM at 1204 PATIENT NAME: SIDNEY ROBERTSON dmvqmp6306-78-12H75:37:00F.[id number] 5AVAvailable for patient llzbCROMWYCJRJMJKZ9497-07-81D39:04:23 [facility] 2020-03-06 14:25:00 YOqfcujfnhh30214700M fKtifKKWZhAnnsHM27z09w Q7RKHQ3qIIyHwwfYn/qz74Oi8Gl/cghQvKgjt1dKb6 507-47-19Q53:25:933181-4144 [place] [address] PATIENT NAME: SIDNEY ROBERTSON ADMIT DATE: 03/07/20ACCOUNT NO: [id number] ROOM NO: [facility] AGE: 29 SEX: F ADMITTING PHYSICIAN: Mikki Scott MD ATTENDING PHYSICIAN: Mikki Scott MD Order:[id number] Reason : PRE-OP (03/07/2020) Test Date/Time Stamp:FriMar 06 2020 14:25:44Blood Pressure : / mmHGVent. Rate : 078 BPM Atrial Rate : 078 BPM P-R Int : 146 ms QRS Dur : 086 ms QT Int : 386 ms P-R-T Axes : 062 090 058 degrees QTc Int : 440 ms Normal sinus rhythmRightward axisBorderline ECGNo previous ECGs availableConfirmed by JESSENIA GOODE MD ([id number]) on 03/07/2020 7:46:28 PM Referred By: Mikki Scott Confirmed by:JESSENIA GOODE MD at 1946 PATIENT NAME: SIDNEY ROBERTSON .[id number] for patient astwZEQMLBFAKEICKD3516-44-26I55:46:53 [facility]
[2023-07-22 14:18] LABS: Absolute Eosinophils 0.1 K/uL (0-0.5); Absolute Lymphocytes (CBC) 1.4 K/uL (0.7-4.9); Absolute Monocytes 0.5 K/uL (0.1-1.3); Absolute Neutrophil 5.6 K/uL (1.8-8.0); Basophils % 0.4 % (0-1.3); Eosinophils % 1.1 % (0-4.4); Hematocrit 38.4 % (36.0-45.0); Hemoglobin 12.7 g/dL (12.0-15.0); Lymphocytes % 18.4 % (15.3-44.8); MCH 31.2 pg (27.0-35.0); MCHC 33.2 g/dL (32.0-36.0); MCV 94.1 fL (80-100); MPV 10.8 fL (7.6-11.3); Monocytes % 6.1 % (3.3-12.3); Platelets 157 thou/uL (152-406); RBC Red Blood Cell Count 4.08 M/uL (3.86-4.86); Red Cell Distribution Width 12.5 % (12.1-15.2)
[2023-07-22] MEDS ORDERED: ONDANSETRON 4 MG/2 ML VIAL ONE (14:22)
--- NOTE | 2023-07-22 14:31 | RAD REPORT ---
EXAM DESCRIPTION: RAD - Chest Single View - 07/22/2023 2:25 pm CLINICAL HISTORY: CHEST PAIN Chest pain. COMPARISON: Chest Single View dated 06/26/2022; Chest Single View dated 09/21/2021; Chest Single View da holly 08/21/2021; Chest Single View dated 10/14/2019 FINDINGS: Portable technique limits examination quality. The lungs are grossly clear. The heart is normal in size. No displaced fractures. IMPRESSION: No acute intrathoracic process suspected.
[2023-07-22 14:44] LABS: Albumin 3.4 g/dL (3.4-5.0); Bilirubin Direct 0.1 mg/dL (0-0.2); Bilirubin Indirect, Calculated 0.2 mg/dL (0.2-0.8); Bilirubin Total 0.3 mg/dL (0.2-1.0); Globulin 3.3 g/dL (2.3-3.5); Magnesium 1.9 mg/dL (1.6-2.4); Protein, Total 6.7 g/dL (6.4-8.2); Troponin High Sensitivity 3.8 pg/mL (<58.9)
--- NOTE | 2023-07-22 16:42 | ER ---
Nurse's Notes [facility] Name: Lilibeth Sharif Age: 33 yrs Sex: Female : 1990 Arrival Date: 07/22/2023 Time: 13:39 Bed 14 Private MD: Santi Choe Diagnosis: Chest pain, unspecified Presentation: 07/21 13:48 Chief complaint: Patient states: [place] heart was racing earlier today along with 2 nj1 episodes where chest was hurting. Nauseous, vomiting x3. Tingling on arms. Coronavirus screen: Vaccine status: Patient reports receiving the 2nd dose of the covid vaccine. Ebola Screen: Patient denies travel to an Ebola-affected area in the 21 days before illness onset. Initial Sepsis Screen: Does the patient meet any 2 criteria? HR > 90 bpm. No. Patient's initial sepsis screen is negative. Does the patient have a suspected source of infection? No. Patient's initial sepsis screen is negative. Risk Assessment: Do you want to hurt yourself or someone else? Patient reports no desire to harm self or others. Onset of symptoms was July 22, 2023. 13:48 Method Of Arrival: Ambulatory nj1 13:48 Acuity: JAMISON 3 nj1 Historical: - Allergies: 13:51 tramadol; nj1 13:51 sulfamethoxazole-trimethoprim; nj1 13:51 Morphine; nj1 13:51 HYDROCODONE; nj1 13:51 Diflucan; nj1 - PMHx: 13:51 Diabetes - IDDM; dka; SVT; nj1 - PSHx: 13:51 2 cardiac ablations; Appendectomy; Cholecystectomy; gastric sleeve; hysterectomy; nj1 - Immunization history:: Client reports receiving the 2nd dose of the Covid vaccine. - Infectious Disease History:: Denies. - Social history:: Smoking status: Patient denies any tobacco usage or history of. - Family history:: not pertinent. Screenin:27 [facility] ED Fall Risk Assessment (Adult) History of falling in the last 3 months, db including since admission No falls in past 3 months (0 pts) Confusion or Disorientation No (0 pts) Intoxicated or Sedated No (0 pts) Impaired Gait No (0 pts) Mobility Assist Device Used No (0 pt) Altered Elimination No (0 pt) Score/Fall Risk Level 0 - 2 = Low Risk Oriented to surroundings, Maintained a safe environment. Abuse screen: Denies threats or abuse. Denies injuries from another. Nutritional screening: No deficits noted. Tuberculosis screening: No symptoms or risk factors identified. Assessment: 14:26 Reassessment: Patient appears in no apparent distress at this time. Patient and/or db family updated on plan of care and expected duration. Pain level reassessed. Patient is alert, oriented x 3, equal unlabored respirations, skin warm/dry/pink. General: Appears in no apparent distress. comfortable, Behavior is calm, cooperative. Pain: Complains of pain in chest Pain radiates to left arm Pain began gradually. Neuro: Level of Consciousness is awake, alert, obeys commands, Oriented to person, place, time, situation. Cardiovascular: Reports chest pain, palpitations, Capillary refill < 3 seconds Patient's skin is warm and dry. Respiratory: Airway is patent Respiratory effort is even, unlabored, Respiratory pattern is regular, symmetrical. 15:00 Reassessment: Patient appears in no apparent distress at this time. Patient and/or db family updated on plan of care and expected duration. Pain level reassessed. Patient is alert, oriented x 3, equal unlabored respirations, skin warm/dry/pink. 16:00 Reassessment: Patient appears in no apparent distress at this time. Patient and/or db family updated on plan of care and expected duration. Pain level reassessed. Patient is alert, oriented x 3, equal unlabored respirations, skin warm/dry/pink. 17:03 Reassessment: Patient appears in no apparent distress at this time. Patient and/or db family updated on plan of care and expected duration. Pain level reassessed. Patient is alert, oriented x 3, equal unlabored respirations, skin warm/dry/pink. Patient denies pain at this time. Patient states feeling better. Patient states symptoms have improved. Vital Signs: 13:48 BP 122 / 77; Pulse 95; Resp 18; Temp 97.7(TE); Pulse Ox 100% on R/A; Weight 77.11 kg; nj1 Height 5 ft. 3 in. ; Pain 6/10; 14:07 BP 120 / 89; Pulse 87; Resp 16; Pulse Ox 97% on R/A; db 14:30 BP 107 / 82; Pulse 84; Resp 16; Pulse Ox 99% on R/A; db 15:30 BP 118 / 69; Pulse 85; Resp 16; Pulse Ox 99% on R/A; db 16:30 BP 108 / 77; Pulse 88; Resp 16; Pulse Ox 99% on R/A; db 13:48 Body Mass Index 30.11 (77.11 kg, 160.02 cm) nj1 13:48 Pain Scale: Adult [facility] ED Course: 13:40 Patient arrived in ED. mr 13:40 Washington Nails MD is Attending Physician. rt 13:40 Santi Choe MD is Private Physician. mr 13:51 Triage completed. nj1 13:52 Arm band placed on left wrist. nj1 14:07 Lipase Sent. bc6 14:07 Basic Metabolic Panel Sent. bc6 14:07 CBC with Diff Sent. bc6 14:07 D-Dimer Sent. bc6 14:07 LFT's Sent. bc6 14:07 Magnesium Sent. bc6 14:07 Troponin HS Sent. bc6 14:07 Initial lab(s) drawn, by me, sent to lab. Inserted saline lock: 20 gauge in right bc6 antecubital area, using aseptic technique. Blood collected. 14:08 Rowan Beaulieu, RN is Primary Nurse. db 14:27 XRAY Chest (1 view) In Process Unspecified. EDMS 14:27 Patient has correct armband on for positive identification. Bed in low position. Call db light in reach. Side rails up X 1. awake overnight monitor on. Pulse ox on. NIBP on. 17:03 Provided Education on: CHEST PAIN, LABS, FOLLOWUP. db 17:03 No provider procedures requiring assistance completed. IV discontinued, intact, db bleeding controlled, No redness/swelling at site. Patient maintains SpO2 saturation greater than 95% on room air. Administered Medications: 14:23 Drug: Ondansetron IVP 4 mg IVP once; over 2 minutes Route: IVP; Site: right antecubital;db 17:04 Follow up: Response: No adverse reaction db Medication: 14:41 VIS not applicable for this client. db Outcome: 16:41 Discharge ordered by . rt 17:03 Discharged to home ambulatory, db 17:03 Condition: stable 17:03 Discharge instructions given to patient, family, Instructed on discharge instructions, follow up and referral plans. 17:05 Patient left the ED. db Signatures: Dispatcher [employer] HEATHER HuffmanLois, Reg Reg mr Rowan Beaulieu, RN RN db Washington Nails MD MD rt Nany Torres 6 Constanza Moreno RN RN nj1
--- NOTE | 2023-07-22 16:42 | EDPHYS ---
Physician Documentation [facility] Name: Lilibeth Sharif Age: 33 yrs Sex: Female : 1990 Arrival Date: 07/22/2023 Time: 13:39 Bed 14 Private MD: Santi Choe ED Physician Washington Nails HPI: 07/21 14:36 This 33 yrs old Female presents to ER via Ambulatory with complaints of Chest rt Pain. 14:36 Patient presents to the ED with chest pain. Patient poorly woke up with a racing heart, rt chest pain. Reports pain to her left shoulder, jaw. Reported nausea without vomiting when that occurred. States that she had 2 other episodes today. Reports some current nausea but no more chest pain. Denies other acute complaints at this time, symptoms are moderate in severity, no other aggravating or alleviating factors.. Historical: - Allergies: 13:51 tramadol; nj1 13:51 sulfamethoxazole-trimethoprim; nj1 13:51 Morphine; nj1 13:51 HYDROCODONE; nj1 13:51 Diflucan; nj1 - PMHx: 13:51 Diabetes - IDDM; dka; SVT; nj1 - PSHx: 13:51 2 cardiac ablations; Appendectomy; Cholecystectomy; gastric sleeve; hysterectomy; nj1 - Immunization history:: Client reports receiving the 2nd dose of the Covid vaccine. - Infectious Disease History:: Denies. - Social history:: Smoking status: Patient denies any tobacco usage or history of. - Family history:: not pertinent. ROS: 14:37 Constitutional: Negative for fever, chills, and weight loss, Respiratory: Negative for rt shortness of breath, cough, wheezing, and pleuritic chest pain, MS/Extremity: Negative for injury and deformity, Skin: Negative for injury, rash, and discoloration, Neuro: Negative for headache, weakness, numbness, tingling, and seizure, 14:37 Cardiovascular: Positive for chest pain, palpitations, 14:37 Abdomen/GI: Positive for nausea, Negative for abdominal pain, Exam: 14:37 Constitutional: This is a well developed, well nourished patient who is awake, alert, rt and in no acute distress. Head/Face: Normocephalic, atraumatic. Chest/axilla: Normal chest wall appearance and motion. Nontender with no deformity. No lesions are appreciated. Cardiovascular: Regular rate and rhythm with a normal S1 and S2. No gallops, murmurs, or rubs. Normal PMI, no JVD. No pulse deficits. Respiratory: Lungs have equal breath sounds bilaterally, clear to auscultation and percussion. No rales, rhonchi or wheezes noted. No increased work of breathing, no retractions or nasal flaring. Abdomen/GI: Soft, non-tender, with normal bowel sounds. No distension or tympany. No guarding or rebound. No evidence of tenderness throughout. Skin: Warm, dry with normal turgor. Normal color with no rashes, no lesions, and no evidence of cellulitis. MS/ Extremity: Pulses equal, no cyanosis. Neurovascular intact. Full, normal range of motion. Neuro: Awake and alert, GCS 15, oriented to person, place, time, and situation. Cranial nerves II-XII grossly intact. Motor strength 5/5 in all extremities. Sensory grossly intact. Cerebellar exam normal. Normal gait. Vital Signs: 13:48 BP 122 / 77; Pulse 95; Resp 18; Temp 97.7(TE); Pulse Ox 100% on R/A; Weight 77.11 kg; ny1 Height 5 ft. 3 in. ; Pain 6/10; 14:07 BP 120 / 89; Pulse 87; Resp 16; Pulse Ox 97% on R/A; db 14:30 BP 107 / 82; Pulse 84; Resp 16; Pulse Ox 99% on R/A; db 15:30 BP 118 / 69; Pulse 85; Resp 16; Pulse Ox 99% on R/A; db 16:30 BP 108 / 77; Pulse 88; Resp 16; Pulse Ox 99% on R/A; db 13:48 Body Mass Index 30.11 (77.11 kg, 160.02 cm) [facility] 13:48 Pain Scale: Adult [facility] MDM: 13:56 Patient medically screened. rt 16:45 Differential diagnosis: acute myocardial infarction, coronary artery disease chest wall rt pain, congestive heart failure pneumonia, pneumothorax, pulmonary embolus. HEART Score: History: Slightly Suspicious (0), ECG: Normal (0), Age: < or = 45 years (0), Risk Factors: 1 or 2 risk factors (1), Troponin: < or = 1 x Normal Limit (0), Total Score = 1. Data reviewed: vital signs, nurses notes, lab test result(s), EKG, radiologic studies. Consideration of Admission/Observation Escalation of care including admission/observation considered. Low heart score, negative workup, 2 negative troponins, patient stable for outpatient care.. I considered the following discharge prescriptions or medication management in the emergency department Medications were administered in the Emergency Department. See MAR. Independent interpretation of the following test(s) in the Emergency Department X-Ray: My interpretation is No pneumonia seen on interpretation of x-ray images. Test considered but Not performed: CT: D-dimer negative, CT angiogram not indicated. Care significantly affected by the following chronic conditions: Diabetes. Counseling: I had a detailed discussion with the patient and/or guardian regarding the historical points, exam findings, and any diagnostic results supporting the discharge/admit diagnosis, lab results, radiology results, the need for outpatient follow up, to return to the emergency department if symptoms worsen or persist or if there are any questions or concerns that arise at home. Response to treatment: the patient's symptoms have markedly improved after treatment. 07/21 14:02 Order name: Basic Metabolic Panel; Complete Time: 14:50 rt 07/21 14:02 Order name: CBC with Diff; Complete Time: 14:32 rt 07/21 14:02 Order name: D-Dimer; Complete Time: 14:32 rt 07/21 14:02 Order name: LFT's; Complete Time: 14:50 rt 07/21 14:02 Order name: Magnesium; Complete Time: 14:50 rt 07/21 14:02 Order name: Troponin HS; Complete Time: 14:50 rt 07/21 14:02 Order name: Test, Serum; Complete Time: 14:50 rt 07/21 14:02 Order name: Lipase; Complete Time: 14:50 rt 07/21 15:51 Order name: Troponin High Sensitivity; Complete Time: 16:38 rt 07/21 14:02 Order name: XRAY Chest (1 view); Complete Time: 14:32 rt 04 14:02 Order name: EKG; Complete Time: 14:03 rt 07/21 14:02 Order name: Cardiac monitoring; Complete Time: 14:26 rt 07/21 14:02 Order name: EKG - Nurse/Tech; Complete Time: 14:26 rt 07/21 14:02 Order name: IV Saline Lock; Complete Time: 14: rt 07/21 14:02 Order name: Labs collected and sent; Complete Time: rt 07/21 14:02 Order name: O2 Per Protocol; Complete Time: rt 07/21 14:02 Order name: O2 Sat Monitoring; Complete Time: : rt Administered Medications: 14: Drug: Ondansetron IVP 4 mg IVP once; over 2 minutes Route: IVP; Site: right antecubital;db 17:04 Follow up: Response: No adverse reaction db Disposition Summary: 07/22/23 16:41 Discharge Ordered Notes: Location: Home rt Problem: new rt Symptoms: have improved rt Condition: Stable rt Diagnosis - Chest pain, unspecified rt Followup: rt - With: Private Physician - When: 2 - 3 days - Reason: Discharge Instructions: - Discharge Summary Sheet rt - Nonspecific Chest Pain, Adult rt Forms: - Medication Reconciliation Form rt - Thank You Letter rt - Antibiotic Education rt - Prescription Opioid Use rt - Patient Portal Instructions rt - Leadership Thank You Letter rt Signatures: Dispatcher [employer] Rowan Ng, RHONDA RN db Washington Nails MD MD rt Constanza Moreno, RN RN nj1
[2023-07-22 20:12] VITALS: TEMP 97.7; O2SAT 99
[2023-07-22 20:41] VITALS: BP 108/77
--- NOTE | 2023-07-24 15:44 | EKG ---
Test Date: 2023-07-22 Test Time: 14:16:54 Customer Account Technician: CELSO MEASUREMENT RESULTS: Intervals: Rate: 84 MA: 146 QRSD: 82 QT: 352 QTc: 415 [place]: P: 57 MA: 146 QRS: 85 T: 57 INTERPRETIVE STATEMENTS: Normal sinus rhythm Septal infarct, age undetermined Abnormal ECG Compared to ECG 09/21/2021 04:01:53 Myocardial infarct finding now present Sinus tachycardia no longer present Right-axis deviation no longer present Electronically Signed On 07-24-23 15:40:21 CDT by Francisco J Lovell
== END 2023-07-22 17:05 | disposition home or self-care (01) ==
LOC: ER 13:39
DX: R07.9 Chest pain, unspecified (principal); R00.2 Palpitations; R11.2 Nausea with vomiting, unspecified; Z88.2 Allergy status to sulfonamides; Z88.3 Allergy status to other anti-infective agents; Z88.5 Allergy status to narcotic agent
CPT/HCPCS: 93005; 85025; 80048; 36415; 83735; 84703; 85379; 80076; 84484 ×2; 83690; 71045; 96374; 99285; J2405

== ENCOUNTER 2024-04-16 16:17 | Emergency (ER) | payer BC ==
--- OUTSIDE RECORDS SUMMARY | 2024-04-16 16:21 | XMS REPORT | Continuity of Care Document ---
Author Name Unknown Address [address] [facility] [address] [place] [address] [facility] thconnect Address [address] 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 Role Phone Marsha Calvo Primary Care Physician [phone] Nurse-[facility], [facility] Attending Clinician Unavailab Yosi Scherer MD Attending Clinician [phone] YOSI CHAU Attending Clinician Unavailable [email or web address] Attending Clinician Unavailable Only, Ang Db Test Attending Clinician Unavailleonidas e Unknown, Attending Attending Clinician Unavailab Monique Erickson Attending Clinician [phone] MONIQUE GARCIA Attending Clinician Unavailable YURIDIA ARRIOLA Attending Clinician Unavailable Doctor Unassigned, [place] Attending Clinician U navailable [facility], [facility] Main Attending Clinician UnavailGabriela Camarillo MD Attending Clinician [phone] GABRIELA LUONG Attending Clinician UnavailMARSHA Brandt Attending Clinician Unavailable Zeinab WOODWORKING BELT SANDER, Yuridia Attending Clinician + [phone] Marsha Calvo Attending Clinician + [phone] Erlinda Attending Clinician Unavailable Johan UBRKS, Jose Roberto Attending Clinician [phone] JOSE ROBERTO PRADO Attending Clinician Unavailable CAMRON PARR Attending Clinician Unavailable Reece DRAKE, Camron Attending Clinician [phone] Lab, Ang - Db Attending Clinician Unavailable Ramon VELASCO, Bradly Attending Clinician + [phone] Jesu Kiser MD Attending Clinician + JESU KISER Attending Clinician Unavaila ble Only, Adc Test Attending Clinician Unavailable Mary Hernandez RN Attending Clinician Unavailab cheryl BURKS, Sukhdev Attending Clinician [phone] Zakia Barrera MD Attending Clinician [phone] Team, [facility] Attending Clinicia n Unavailable Lab, [facility] Pob I Attending Clinician Unavailab MELANIA Camacho Attending Clinician Unavailable Provider, [facility] Attending Clinician Un available NAPOLEON SUKHDEV Attending Clinician Unavailable Jeanine Palm Attending Clinician UnavailANG Sandoval Attending Clinician Unavailable 2, [facility] Attending Clinician Unavailable Ang Schilling MD Attending Clinician [phone] NONA ROMERO Attending Clinician Unavailable ZAKIA BARRERA Attending Clinician Unavailable Tito ELLIS, Den Attending Clinician Unavailab le Pob1, [facility] Attending Clinician UnaGalo Candelaria MD Attending Clinician [phone] GALO BAILEY Attending Clinician Unavail able RADIOLOGY Attending Clinician Unavailable 1, [facility] Attending Clinician Unavailable SulemanQ_WAGDNU Admitting Clinician Unavailable Erlinda Admitting Clinician Unavailable CAMRON PARR Admitting Clinician Unavailable Physician, No Primary or Family Admitting Clinic chely Unavailable ANGÉLCIA EVANS Admitting Clinician Unavailable Payers Payer Name Policy Type Policy Number Effective Date Expirati on Date Source [place] [id number] 2020 00:00:00 Problems Condition Name Condition Details Condition Category Status Onset Date Resolution Date Last Treatment Date Treating Clinician Comments Source Bronchitis Bronchitis Disease Active 9 00:00: 00 [facility] Wheezing Wheezing Disease Active 12-25 00:00: 00 [facility] Cough Cough Disease Active 12-25 00:00: 00 [facility] History of pancreatit is History of pancreatit is Disease Active 6-15 00:00: 00 [facility] Type 1 diabetes mellitus Type 1 Diabetes Mellitus Problem Active 3-05 00:00: 00 [facility] Dizziness Dizziness Disease Active 2-04 00:00: 00 [facility] Dyspnea on exertion Dyspnea on exertion Disease Active 2-04 00:00: 00 [facility] Fatigue, unspecifie d type Fatigue, unspecifie d type Disease Active 2-04 00:00: 00 [facility] Clammy skin Clammy skin Disease Active 2-04 00:00: 00 [facility] Rhinorrhea Rhinorrhea Disease Active 2-04 00:00: 00 [facility] Viral syndrome Viral syndrome Disease Active 2-04 00:00: 00 [facility] Obesity Obesity Problem Active 6 00:00: 00 [facility] Clinical finding Clinical Finding Problem Active 10-19 00:00: 00 [facility] Finding related to sleep Finding Related to Sleep Problem Active 30 00:00: 00 [facility] Anxiety and depression Anxiety and depression Disease Active 1-14 00:00: 00 [facility] Psoriasis Psoriasis Disease Active 2017-04 00:00: 00 [facility] Overweight Overweight Disease Active 6 00:00: 00 [facility] Iron deficiency anemia due to chronic blood loss Iron deficiency anemia due to chronic blood loss Disease Active 09-15 00:00: 00 [facility] Hypoglycem ia Hypoglycem ia Problem Active 2016-04 00:00: 00 [facility] Vitamin D deficiency Vitamin D Deficiency Problem Active 2016-04 00:00: 00 [facility] Clinical finding Clinical Finding Problem Active 2016-04 00:00: 00 [facility] Clinical finding Clinical Finding Problem Active 2016-04 00:00: 00 [facility] Anemia Anemia Disease Active 2016-04 00:00: 00 [facility] 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 Dr. Pendleton ([facility]), followed q6mos [facility] Diabetic keto-acido sis Diabetic keto-acido sis Disease Active 9-15 00:00: 00 [facility] Sinus tachycardi a Sinus tachycardi a Disease Active 9-14 00:00: 00 [facility] Insomnia Insomnia Disease Active 327 00:00: 00 [facility] Vitamin D deficiency Vitamin D deficiency Disease Active 8-19 00:00: 00 Overview: Formattin g of this note might be different from the original. ICD10 Diagnosis Term Radiological Technologist Utility [facility] Obesity Obesity Disease Active 5 00:00: 00 Overview: Formattin g of this note might be different from the original. ICD10 Diagnosis Term Radiological Technologist Utility [facility] Hypoglycem ia Hypoglycem ia Disease Active 2-23 00:00: 00 Overview: Formattin g of this note might be different from the original. 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 Claudy wolf [facility] Diabetes mellitus Diabetes mellitus Disease Active 06-13 00:00: 00 Overview: Formattin g of this note might be different from the original. 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 Claudy wolf [facility] Type 1 diabetes mellitus Type 1 diabetes mellitus Disease Active 8 00:00: 00 [facility] Sinusitis Sinusitis Problem Active [facility] Posterior rhinorrhea Posterior Rhinorrhea Problem Active [facility] Nasal obstructio n Nasal Obstructio n Problem Active [facility] Headache Headache Problem Active [facility] Fever Fever Disease Resolve d 07-09 00:00: 00 2019-05-04 00:00:00 2019-05-04 17:47:43 [facility] Diabetic acidosis Diabetic acidosis Disease Resolve d 01-02 00:00: 00 2019-05-04 00:00:00 2019-05-04 17:47:46 [facility] Acidosis Acidosis Disease Resolve d 01-02 00:00: 00 2015-01-03 00:00:00 2015-01-03 08:57:44 [facility] Depression Depression Disease Resolve d 07-15 00:00: 00 2015-01-03 00:00:00 2015-01-03 08:57:13 [facility] Allergic rhinitis Allergic rhinitis Disease Resolve d 07-15 00:00: 00 2015-01-03 00:00:00 2021-11-04 00:35:15 [facility] Abnormal LFTs Abnormal LFTs Disease Resolve d 07-15 00:00: 00 2015-01-03 00:00:00 2021-11-04 00:35:15 [facility] Elevated LFTs Elevated LFTs Disease Resolve d 08-20 00:00: 00 2015-01-02 00:00:00 2015-01-02 12:23:16 [facility] Morbidly obese Morbidly obese Disease Resolve d 2011-04 00:00: 00 2012-08-20 00:00:00 2012-08-20 19:53:29 [facility] Allergies, Adverse Reactions, Alerts Allergy Name Allergy Type Status Severity Reaction(s) Onset Date Inactive Date Treating Clinician Comments Source DULAGLUT KAREN DRUG INGREDI Active Unknown-Cmnt 2-15 00:00: 00 [facility] FLUCONAZ OLE DRUG INGREDI Active Hives 2-15 00:00: 00 [facility] Dulaglut karen Drug Allergy Active Unknown - See comments 2-15 00:00: 00 [facility] Fluconaz ole Drug Allergy Active Hives 215 00:00: 00 [facility] adhesive DA Active MO 20 00:00: 00 [facility] adhesive DA Active MO HIVES 20 00:00: 00 [facility] Sulfa (Sulfona mide Antibiot ics) DA Active AR 0 18 00:00: 00 [facility] morphine DA Active SV 0 18 00:00: 00 [facility] hydrocod one DA Active AR 0 18 00:00: 00 [facility] tramadol DA Active AR 0 18 00:00: 00 [facility] Sulfa (Sulfona mide Antibiot ics) DA Active AR ITCHING 18 00:00: 00 [facility] morphine DA Active SV SHORTNESS OF BREATH 0 18 00:00: 00 [facility] hydrocod one DA Active AR ITCHING 0 18 00:00: 00 [facility] tramadol DA Active AR ITCHING 0 18 00:00: 00 [facility] Sulfa (Sulfona mide Antibiot ics) Propensi ty to adverse reaction s Active Itching 07-15 00:00: 00 [facility] SULFA (SULFONA MIDE ANTIBIOT ICS) Drug Class Active ITCHING 07-15 00:00: 00 [facility] Adhesive Propensi ty to adverse reaction s Active Hives 0 06-17 00:00: 00 [facility] ADHESIVE Drug Class Active Hives 0 06-17 00:00: 00 [facility] TRAMADOL DRUG INGREDI Active ITCHING 0 05-28 00:00: 00 [facility] Tramadol Propensi ty to adverse reaction s Active Itching 0 05-28 00:00: 00 [facility] HYDROCOD ONE DRUG INGREDI Active ITCHING 0 09-18 00:00: 00 [facility] Hydrocod one Drug Allergy Active Hives 09-18 00:00: 00 [facility] Hydrocod one Propensi ty to adverse reaction s Active Itching 09-18 00:00: 00 [facility] MORPHINE DRUG INGREDI Active ITCHING 0 12-12 00:00: 00 [facility] Morphine Propensi ty to adverse reaction s Active Shortness of Breath 0 12-12 00:00: 00 [facility] Hydrocod one Allergy to substanc e Active [facility] MORPHINE SULFATE Allergy to substanc e Active [facility] Sulfacet amide Allergy to substanc e Active [facility] TRAMADOL HCL Allergy to substanc e Active Hives [facility] Trulicit y Allergy to substanc e Active [facility] Diflucan Allergy to substanc e Active Hives [facility] Morphine Allergy to substanc e Active [facility] Tramadol Allergy to substanc e Active [facility] Social History Social Habit Start Date Stop Date Quantity Comments Source [facility] SD[facility] Alcohol Frequency [facility] History SDOH Alcohol Std Drinks [facility] History SDOH Alcohol Binge [facility] Exposure to SARS-CoV-2 (event) 2022-08-24 00:00:00 2022-09-03 14:30:[address] [facility] History of Social function 2022-09-03 00:00:00 2022-09-03 00:00:00 [facility] Alcoholic beverage intake 2022-09-03 00:00:00 2022-09-03 00:00:00 .14 /d [facility] Alcohol intake 2022-09-03 00:00:00 2022-09-03 00:00:00 .14 /d [facility] Tobacco use and exposure 2021-12-25 00:00:00 2021-12-25 00:00:00 Smokeless tobacco non-user [facility] Alcohol Comment 2014-07-15 00:00:00 2014-07-15 00:00:[address] [facility] Sex assigned at 1990 00:00:00 1988 00:00:00 [facility] Smoking Status Start Date Stop Date Source Never smoked tobacco [facility] Medications Ordered Medication Name Filled Medication Name Start Date Stop Date Current Medication? Ordering Clinician Indication Dosage Frequency Signature (SIG) Comments Components Source meloxicam 7.5 mg tablet 06-05 00:00: 00 09-03 00:00 :00 No [id number] 7.5mg Take 1 tablet by mouth once daily as needed (back pain). [facility] ketorolac (TORADOL) injection 30 mg 05-30 00:00: 00 05-29 23:15 :00 No [id number] 30mg [facility] lipase-prot ease-amylas e (ZENPEP) 15,000-47,0 00 -63,000 unit CpDR 05-29 16:44: 12 Yes Take by mouth. [facility] albuterol 90 mcg/actuati on inhaler 12-25 00:00: 00 Yes [id number] 2{puff} Inhale 2 Puffs every 6 (six) hours as needed for Wheezing or Shortness of Breath. [facility] AZITHROMYCI N 250 mg tablet 12-25 00:00: 00 09-03 00:00 :00 No [id number] 500MG on day 1, then 250mg days 2-5 [facility] benzonatate 200 mg capsule 12-25 00:00: 00 01-02 04:59 :00 No [id number] 200mg Take 1 capsule by mouth 3 (three) times daily as needed for Cough for up to 7 days. [facility] pantoprazol e 40 mg EC tablet 09-24 00:00: 00 Yes [facility] pantoprazol e 40 mg EC tablet 09-24 00:00: 00 Yes [facility] WEGOVY 2.4 mg/0.75 mL PnIj SC injection 2 00:00: 00 09-03 00:00 :00 No [facility] T:SLIM X2 Crtg 11-23 00:00: 00 Yes [facility] TRUSTEEL INFUSION SET 23" ISet 11-23 00:00: 00 Yes [facility] DEXCOM G6 TRANSMITTER Mell 11-23 00:00: 00 Yes [facility] DEXCOM G6 SENSOR Mell 11-23 00:00: 00 Yes [facility] fluticasone propionate 50 mcg/actuati on nasal spray 05-28 00:00: 00 Yes [id number] 1 spray each nostril twice a day for 5 days then daily [facility] flash glucose sensor (FREESTYLE JARET 14 DAY SENSOR) Kit 4-15 00:00: 00 Yes [id number] 1{each} 1 Each every 14 (fourteen) days. Use as directed with reader. [facility] amoxicillin 875 mg tablet Take 1 tablet every 12 hours by oral route with meals for 12 days. amoxicillin 875 mg tablet Take 1 tablet every 12 hours by oral route with meals for 12 days. No 1 Q12H amoxicilli n 875 mg tablet Take 1 tablet every 12 hours by oral route with meals for 12 days. [facility] cefdinir 300 mg capsule cefdinir 300 mg capsule No cefdinir 300 mg capsule [facility] Fiasp FlexTouch U-100 Insulin 100 unit/mL (3 [...] DEXCOM G6 CGM No DEXCOM G6 CGM [facility] Dexcom G6 Sensor device Take 3 devices every month by miscell. route. Dexcom G6 Sensor device Take 3 devices every month by miscell. route. No Dexcom G6 Sensor device Take 3 devices every month by miscell. route. [facility] Dexcom G6 Transmitter device Dexcom G6 Transmitter device No Dexcom G6 Transmitte r device [facility] Lyumjev KwikPen U-100 Insulin [...] Use daily with insulin pump: TDD 70 [facility] nitroglycer in 0.4 mg sublingual tablet nitroglycer in 0.4 mg sublingual tablet No nitroglyce rin 0.4 mg sublingual tablet [facility] t:slim X2 subcutaneou s cartridge t:slim X2 subcutaneou s cartridge No t:slim X2 subcutaneo us cartridge [facility] Tresiba FlexTouch U-200 insulin [...] failure and increase as directed: TDD 50 [facility] TruSteel Infusion Set 23" Take 10 sets every month by miscell. route. TruSteel Infusion Set 23" Take 10 sets every month by miscell. route. No TruSteel Infusion Set 23" Take 10 sets every month by miscell. route. [facility] Accu-Chek Guide test strips Take 5 strips every day by miscell. route for 30 days. Accu-Chek Guide test strips Take 5 strips every day by miscell. route for 30 days. No 5strip( s) Q1D Accu-Chek Guide test strips Take 5 strips every day by miscell. route for 30 days. [facility] Dexcom G6 CGM Dexcom G6 CGM No Dexcom G6 CGM [facility] Dexcom G6 Sensor device Take 3 devices every month by miscell. route. Dexcom G6 Sensor device Take 3 devices every month by miscell. route. No Dexcom G6 Sensor device Take 3 devices every month by miscell. route. [facility] Dexcom G6 Transmitter device Dexcom G6 Transmitter device No Dexcom G6 Transmitte r device [facility] Lyumjev KwikPen U-100 [...] using ICR 1:5; CF 1:30: TDD 50 [facility] Lyumjev U-100 Insulin 100 unit/mL subcutaneou s solution Use daily with insulin pump: TDD 70 Lyumjev U-100 Insulin 100 unit/mL subcutaneou s solution Use daily with insulin pump: TDD 70 No Lyumjev U-100 Insulin 100 unit/mL subcutaneo us solution Use daily with insulin pump: TDD 70 [facility] nitroglycer in 0.4 mg sublingual tablet nitroglycer in 0.4 mg sublingual tablet No nitroglyce rin 0.4 mg sublingual tablet [facility] ondansetron HCl 4 mg tablet ondansetron HCl 4 mg tablet No ondansetro n HCl 4 mg tablet [facility] t:slim X2 subcutaneou s cartridge t:slim X2 subcutaneou s cartridge No t:slim X2 subcutaneo us cartridge [facility] Tresiba FlexTouch U-200 insulin [...] failure and increase as directed: TDD 50 [facility] TruSteel Infusion Set 23" Take 10 sets every month by miscell. route. TruSteel Infusion Set 23" Take 10 sets every month by miscell. route. No TruSteel Infusion Set 23" Take 10 sets every month by miscell. route. [facility] Wegovy 1 mg/0.5 mL [...] by subcutaneo us route for 28 days. [facility] Wegovy 1.7 mg/0.75 mL [...] by subcutaneo us route for 28 days. [facility] Wegovy 2.4 mg/0.75 mL subcutaneou s pen injector Inject 2.4 mg every week by subcutaneou s route for 28 days. Wegovy 2.4 mg/0.75 mL subcutaneou s pen injector Inject 2.4 mg every week by subcutaneou s route for 28 days. No 2.4mg Q1W Wegovy 2.4 mg/0.75 mL subcutaneo us pen injector Inject 2.4 mg every week by subcutaneo us route for 28 days. [facility] Zenpep 40,000 unit-126,00 0 unit-168,00 0 unit capsule,del ayed release Zenpep 40,000 unit-126,00 0 unit-168,00 0 unit capsule,del ayed release No Zenpep 40,000 unit-126,0 00 unit-168,0 00 unit capsule,de layed release [facility] Baqsimi 3 mg/actuatio n nasal spray SPRAY NASALLY DIRECTED FOR EMERGENCY LOW SUGARS 30 DAYS. Baqsimi 3 mg/actuatio n nasal spray SPRAY NASALLY DIRECTED FOR EMERGENCY LOW SUGARS 30 DAYS. No Baqsimi 3 mg/actuati on nasal spray SPRAY NASALLY DIRECTED FOR EMERGENCY LOW SUGARS 30 DAYS. [facility] bupropion HCl SR 150 mg tablet,12 hr sustained-r elease TAKE ONE (1) TABLET(S) BY MOUTH TWICE A DAY. bupropion HCl SR 150 mg tablet,12 hr sustained-r elease TAKE ONE (1) TABLET(S) BY MOUTH TWICE A DAY. No bupropion HCl SR 150 mg tablet,12 hr sustained- release TAKE ONE (1) TABLET(S) BY MOUTH TWICE A DAY. [facility] bupropion HCl XL 300 [...] MOUTH ONCE A DAY IN THE MORNING. [facility] Dexcom G6 CGM Dexcom G6 CGM No Dexcom G6 CGM [facility] Dexcom G6 Sensor device Take 3 devices every month by miscell. route. Dexcom G6 Sensor device Take 3 devices every month by miscell. route. No Dexcom G6 Sensor device Take 3 devices every month by miscell. route. [facility] Dexcom G6 Transmitter device USE DIRECTED. Dexcom G6 Transmitter device USE DIRECTED. No Dexcom G6 Transmitte r device USE DIRECTED. [facility] insulin lispro (U-100) 100 unit/mL subcutaneou s solution INJECT 60 UNITS PER DAY VIA INSULIN PUMP. insulin lispro (U-100) 100 unit/mL subcutaneou s solution INJECT 60 UNITS PER DAY VIA INSULIN PUMP. No insulin lispro (U-100) 100 unit/mL subcutaneo us solution INJECT 60 UNITS PER DAY VIA INSULIN PUMP. [facility] Lyumjev KwikPen U-100 Insulin [...] using ICR 1:5; CF 1:30: TDD 50 [facility] Lyumjev U-100 Insulin 100 unit/mL subcutaneou s solution Use daily with insulin pump: TDD 70 Lyumjev U-100 Insulin 100 unit/mL subcutaneou s solution Use daily with insulin pump: TDD 70 No Lyumjev U-100 Insulin 100 unit/mL subcutaneo us solution Use daily with insulin pump: TDD 70 [facility] meclizine 25 mg tablet TAKE ONE (1) TABLET(S) BY MOUTH EVERY EIGHT HOURS NEEDED. meclizine 25 mg tablet TAKE ONE (1) TABLET(S) BY MOUTH EVERY EIGHT HOURS NEEDED. No meclizine 25 mg tablet TAKE ONE (1) TABLET(S) BY MOUTH EVERY EIGHT HOURS NEEDED. [facility] metoclopram karen 10 [...] (BEFORE MEALS) NEEDED FOR NAUSEA AND VOMITING. [facility] metoprolol succinate ER 25 mg tablet,exte nded release 24 hr TAKE ONE (1) TABLET(S) BY MOUTH ONCE A DAY. metoprolol succinate ER 25 mg tablet,exte nded release 24 hr TAKE ONE (1) TABLET(S) BY MOUTH ONCE A DAY. No metoprolol succinate ER 25 mg tablet,ext ended release 24 hr TAKE ONE (1) TABLET(S) BY MOUTH ONCE A DAY. [facility] metoprolol succinate ER 50 mg tablet,exte nded release 24 hr TAKE ONE (1) TABLET(S) BY MOUTH ONCE A DAY. metoprolol succinate ER 50 mg tablet,exte nded release 24 hr TAKE ONE (1) TABLET(S) BY MOUTH ONCE A DAY. No metoprolol succinate ER 50 mg tablet,ext ended release 24 hr TAKE ONE (1) TABLET(S) BY MOUTH ONCE A DAY. [facility] mupirocin 2 % topical ointment APPLY TO AFFECTED AREA 3 (THREE) TIMES DAILY. mupirocin 2 % topical ointment APPLY TO AFFECTED AREA 3 (THREE) TIMES DAILY. No mupirocin 2 % topical ointment APPLY TO AFFECTED AREA 3 (THREE) TIMES DAILY. [facility] nitroglycer in 0.4 mg sublingual tablet nitroglycer in 0.4 mg sublingual tablet No nitroglyce rin 0.4 mg sublingual tablet [facility] ondansetron 4 mg [...] ALLOW TO DISSOLVE EVERY 8 HOURS NEEDED. [facility] ondansetron HCl 4 mg tablet ondansetron HCl 4 mg tablet No ondansetro n HCl 4 mg tablet [facility] OneTouch Delica Plus Lancet 33 gauge OneTouch Delica Plus Lancet 33 gauge No OneTouch Delica Plus Lancet 33 gauge [facility] OneTouch Verio Flex Meter OneTouch Verio Flex Meter No OneTouch Verio Flex Meter [facility] OneTouch Verio test strips Take 1 strip 5 times a day by miscell. route for 90 days. OneTouch Verio test strips Take 1 strip 5 times a day by miscell. route for 90 days. No 1strip( s) 5xD OneTouch Verio test strips Take 1 strip 5 times a day by miscell. route for 90 days. [facility] pantoprazol e 40 mg tablet,lucy yed release pantoprazol e 40 mg tablet,lucy yed release No pantoprazo le 40 mg tablet,del ayed release [facility] t:slim X2 subcutaneou s cartridge t:slim X2 subcutaneou s cartridge No t:slim X2 subcutaneo us cartridge [facility] trazodone 50 mg tablet TAKE TWO (2) TABLET(S) BY MOUTH DAILY NEEDED AT BEDTIME. trazodone 50 mg tablet TAKE TWO (2) TABLET(S) BY MOUTH DAILY NEEDED AT BEDTIME. No trazodone 50 mg tablet TAKE TWO (2) TABLET(S) BY MOUTH DAILY NEEDED AT BEDTIME. [facility] Tresiba FlexTouch U-100 insulin 100 [...] SKIN IN THE MORNING IF PUMP FAILS. [facility] TruSteel Infusion Set 23" Take 10 sets every month by miscell. route. TruSteel Infusion Set 23" Take 10 sets every month by miscell. route. No TruSteel Infusion Set 23" Take 10 sets every month by miscell. route. [facility] venlafaxine ER 37.5 mg capsule,ext ended release 24 hr TAKE ONE (1) CAPSULE(S) BY MOUTH DAILY WITH FOOD. venlafaxine ER 37.5 mg capsule,ext ended release 24 hr TAKE ONE (1) CAPSULE(S) BY MOUTH DAILY WITH FOOD. No venlafaxin e ER 37.5 mg capsule,ex tended release 24 hr TAKE ONE (1) CAPSULE(S) BY MOUTH DAILY WITH FOOD. [facility] Zenpep 40,000 unit-126,00 0 unit-168,00 0 unit capsule,del ayed release Zenpep 40,000 unit-126,00 0 unit-168,00 0 unit capsule,del ayed release No Zenpep 40,000 unit-126,0 00 unit-168,0 00 unit capsule,de layed release [facility] Immunizations Ordered Immunization Name Filled Immunization Name Date Status Comments Source Flu Injectable MDCK Pres-Free (FLUCELVAX) 2024-02-19 00:00:00 Completed Influenza Virus Vaccine Quad IM 3+ YRS 2021-01-19 00:00:[address] [facility] Influenza Virus Vaccine Quad IM 3+ YRS 2021-01-19 00:00:[address] [facility] Influenza Virus Vaccine Quad IM 3+ YRS 2021-01-19 00:00:[address] [facility] Influenza Virus Vaccine Quad IM 3+ YRS 2021-01-19 00:00:[address] [facility] Influenza Virus Vaccine Quad IM 3+ YRS 2021-01-19 00:00:[address] [facility] Influenza Virus Vaccine Quad IM 3+ YRS 2021-01-19 00:00:[address] [facility] Influenza Virus Vaccine Quad IM 3+ YRS 2021-01-19 00:00:[address] [facility] Influenza Virus Vaccine Quad IM 3+ YRS 2021-01-19 00:00:[address] [facility] Influenza Virus Vaccine Quad IM 3+ YRS 2021-01-19 00:00:[address] [facility] Influenza Virus Vaccine Quad IM 3+ YRS 2021-01-19 00:00:[address] [facility] Influenza Virus Vaccine Quad IM 3+ YRS 2021-01-19 00:00:[address] [facility] Influenza Virus Vaccine Quad IM 3+ YRS 2021-01-19 00:00:[address] [facility] COVID-19, mRNA, LNP-S, PF, 30 mcg/0.3 mL dose (Pfizer-BioNTech) COVID-19, mRNA, LNP-S, PF, 30 mcg/0.3 mL dose (Pfizer-BioNTech) 2020-09-25 00:00:00 Completed [facility] COVID-19, mRNA, LNP-S, PF, 30 mcg/0.3 mL dose (Pfizer-BioNTech) COVID-19, mRNA, LNP-S, PF, 30 mcg/0.3 mL dose (Pfizer-BioNTech) 2020-09-25 00:00:00 Completed [facility] SARS-COV-2 COVID-19 PFIZER VACCINE 2020-09-25 00:00:[address] [facility] SARS-COV-2 COVID-19 PFIZER VACCINE 2020-09-25 00:00:[address] [facility] SARS-COV-2 COVID-19 PFIZER VACCINE 2020-09-25 00:00:[address] [facility] SARS-COV-2 COVID-19 PFIZER VACCINE 2020-09-25 00:00:[address] [facility] SARS-COV-2 COVID-19 PFIZER VACCINE 2020-09-25 00:00:[address] [facility] SARS-COV-2 COVID-19 PFIZER VACCINE 2020-09-25 00:00:[address] [facility] SARS-COV-2 COVID-19 PFIZER VACCINE 2020-09-25 00:00:[address] [facility] SARS-COV-2 COVID-19 PFIZER VACCINE 2020-09-25 00:00:00 Completed SARS-COV-2 COVID-19 PFIZER VACCINE 2020-06-02 00:00:[address] [facility] SARS-COV-2 COVID-19 PFIZER VACCINE 2020-06-02 00:00:[address] [facility] SARS-COV-2 COVID-19 PFIZER VACCINE 2020-06-02 00:00:[address] [facility] SARS-COV-2 COVID-19 PFIZER VACCINE 2020-06-02 00:00:[address] [facility] SARS-COV-2 COVID-19 PFIZER VACCINE 2020-06-02 00:00:[address] [facility] SARS-COV-2 COVID-19 PFIZER VACCINE 2020-06-02 00:00:[address] [facility] SARS-COV-2 COVID-19 PFIZER VACCINE 2020-06-02 00:00:[address] [facility] SARS-COV-2 COVID-19 PFIZER VACCINE 2020-06-02 00:00:[address] [facility] SARS-COV-2 COVID-19 PFIZER VACCINE 2020-06-02 00:00:[address] [facility] SARS-COV-2 COVID-19 PFIZER VACCINE 2020-06-02 00:00:[address] [facility] SARS-COV-2 COVID-19 PFIZER VACCINE 2020-06-02 00:00:[address] [facility] SARS-COV-2 COVID-19 PFIZER VACCINE 2020-06-02 00:00:[address] [facility] COVID-19 (SARS-COV-2) vaccine, unspecified COVID-19 (SARS-COV-2) vaccine, unspecified 2020-05-22 00:00:00 Completed [facility] COVID-19 (SARS-COV-2) vaccine, unspecified COVID-19 (SARS-COV-2) vaccine, unspecified 2020-05-22 00:00:00 Completed [facility] SARS-COV-2 COVID-19 UNSPECIFIED VACCINE 2020-05-22 00:00:[address] [facility] SARS-COV-2 COVID-19 UNSPECIFIED VACCINE 2020-05-22 00:00:[address] [facility] SARS-COV-2 COVID-19 UNSPECIFIED VACCINE 2020-05-22 00:00:[address] [facility] SARS-COV-2 COVID-19 UNSPECIFIED VACCINE 2020-05-22 00:00:[address] [facility] SARS-COV-2 COVID-19 UNSPECIFIED VACCINE 2020-05-22 00:00:[address] [facility] SARS-COV-2 COVID-19 UNSPECIFIED VACCINE 2020-05-22 00:00:[address] [facility] SARS-COV-2 COVID-19 UNSPECIFIED VACCINE 2020-05-22 00:00:[address] [facility] SARS-COV-2 COVID-19 UNSPECIFIED VACCINE 2020-05-22 00:00:00 Completed SARS-COV-2 COVID-19 PFIZER VACCINE 2020-05-12 00:00:[address] [facility] SARS-COV-2 COVID-19 PFIZER VACCINE 2020-05-12 00:00:[address] [facility] SARS-COV-2 COVID-19 PFIZER VACCINE 2020-05-12 00:00:[address] [facility] SARS-COV-2 COVID-19 PFIZER VACCINE 2020-05-12 00:00:[address] [facility] SARS-COV-2 COVID-19 PFIZER VACCINE 2020-05-12 00:00:[address] [facility] SARS-COV-2 COVID-19 PFIZER VACCINE 2020-05-12 00:00:[address] [facility] SARS-COV-2 COVID-19 PFIZER VACCINE 2020-05-12 00:00:[address] [facility] SARS-COV-2 COVID-19 PFIZER VACCINE 2020-05-12 00:00:[address] [facility] SARS-COV-2 COVID-19 PFIZER VACCINE 2020-05-12 00:00:[address] [facility] SARS-COV-2 COVID-19 PFIZER VACCINE 2020-05-12 00:00:[address] [facility] SARS-COV-2 COVID-19 PFIZER VACCINE 2020-05-12 00:00:[address] [facility] SARS-COV-2 COVID-19 PFIZER VACCINE 2020-05-12 00:00:[address] [facility] influenza, injectable, quadrivalent influenza, injectable, quadrivalent 2020-01-20 00:00:00 Completed [facility] influenza, injectable, quadrivalent influenza, injectable, quadrivalent 2020-01-20 00:00:00 Completed [facility] Influenza Virus Vaccine Quad IM Multi-dose 6+ MO 2020-01-20 00:00:[address] [facility] Influenza Virus Vaccine Quad IM Multi-dose 6+ MO 2020-01-20 00:00:[address] [facility] Influenza Virus Vaccine Quad IM Multi-dose 6+ MO 2020-01-20 00:00:[address] [facility] Influenza Virus Vaccine Quad IM Multi-dose 6+ MO 2020-01-20 00:00:[address] [facility] Influenza Virus Vaccine Quad IM Multi-dose 6+ MO 2020-01-20 00:00:[address] [facility] Influenza Virus Vaccine Quad IM Multi-dose 6+ MO 2020-01-20 00:00:[address] [facility] Influenza Virus Vaccine Quad IM Multi-dose 6+ MO 2020-01-20 00:00:[address] [facility] Influenza Virus Vaccine Quad IM Multi-dose 6+ MO 2020-01-20 00:00:00 Completed Influenza Virus Vaccine Quad IM 3+ YRS 2018-01-29 00:00:[address] [facility] Influenza Virus Vaccine Quad IM 3+ YRS 2018-01-29 00:00:[address] [facility] Influenza Virus Vaccine Quad IM 3+ YRS 2018-01-29 00:00:[address] [facility] Influenza Virus Vaccine Quad IM 3+ YRS 2018-01-29 00:00:[address] [facility] Influenza Virus Vaccine Quad IM 3+ YRS 2018-01-29 00:00:[address] [facility] Influenza Virus Vaccine Quad IM 3+ YRS 2018-01-29 00:00:[address] [facility] Influenza Virus Vaccine Quad IM 3+ YRS 2018-01-29 00:00:[address] [facility] Influenza Virus Vaccine Quad IM 3+ YRS 2018-01-29 00:00:[address] [facility] Influenza Virus Vaccine Quad IM 3+ YRS 2018-01-29 00:00:[address] [facility] Influenza Virus Vaccine Quad IM 3+ YRS 2018-01-29 00:00:[address] [facility] Influenza Virus Vaccine Quad IM 3+ YRS 2018-01-29 00:00:[address] [facility] Influenza Virus Vaccine Quad IM 3+ YRS 2018-01-29 00:00:[address] [facility] TDAP 2016-07-20 00:00:[address] [facility] TDAP 2016-07-20 00:00:[address] [facility] TDAP 2016-07-20 00:00:[address] [facility] TDAP 2016-07-20 00:00:[address] [facility] TDAP 2016-07-20 00:00:[address] [facility] TDAP 2016-07-20 00:00:[address] [facility] TDAP 2016-07-20 00:00:[address] [facility] TDAP 2016-07-20 00:00:[address] [facility] TDAP 2016-07-20 00:00:[address] [facility] TDAP 2016-07-20 00:00:[address] [facility] TDAP 2016-07-20 00:00:[address] [facility] TDAP 2016-07-20 00:00:00 Completed tetanus toxoid, adsorbed tetanus toxoid, adsorbed 2015-04-21 00:00:00 Completed [facility] tetanus toxoid, adsorbed tetanus toxoid, adsorbed 2015-04-21 00:00:00 Completed [facility] Tetanus Toxoid, Absorbed 2015-04-21 00:00:[address] [facility] Tetanus Toxoid, Absorbed 2015-04-21 00:00:[address] [facility] Tetanus Toxoid, Absorbed 2015-04-21 00:00:[address] [facility] Tetanus Toxoid, Absorbed 2015-04-21 00:00:[address] [facility] Tetanus Toxoid, Absorbed 2015-04-21 00:00:[address] [facility] Tetanus Toxoid, Absorbed 2015-04-21 00:00:[address] [facility] Tetanus Toxoid, Absorbed 2015-04-21 00:00:[address] [facility] Tetanus Toxoid, Absorbed 2015-04-21 00:00:00 Completed COVID-19, mRNA, LNP-S, PF, 30 mcg/0.3 mL dose (Pfizer-BioNTech) COVID-19, mRNA, LNP-S, PF, 30 mcg/0.3 mL dose (Pfizer-BioNTech) Unknown Completed [facility] COVID-19 (SARS-COV-2) vaccine, unspecified COVID-19 (SARS-COV-2) vaccine, unspecified Unknown Completed [facility] influenza, injectable, quadrivalent influenza, injectable, quadrivalent Unknown Completed [facility] tetanus toxoid, adsorbed tetanus toxoid, adsorbed Unknown Completed [facility] Influenza Virus Vaccine Quad IM 3+ YRS Unknown Completed [facility] SARS-COV-2 COVID-19 PFIZER VACCINE Unknown Completed [facility] TDAP Unknown Completed [facility] SARS-COV-2 COVID-19 UNSPECIFIED VACCINE Unknown Completed [facility] Influenza Virus Vaccine Quad IM Multi-dose 6+ MO Unknown Completed [facility] Tetanus Toxoid, Absorbed Unknown Completed [facility] Influenza Virus Vaccine Quad IM 3+ YRS Unknown Completed [facility] SARS-COV-2 COVID-19 PFIZER VACCINE Unknown Completed [facility] TDAP Unknown Completed [facility] Influenza Virus Vaccine Quad IM Multi-dose 6+ MO Unknown Completed [facility] Tetanus Toxoid, Absorbed Unknown Completed [facility] Influenza Virus Vaccine Quad IM 3+ YRS Unknown Completed [facility] SARS-COV-2 COVID-19 PFIZER VACCINE Unknown Completed [facility] TDAP Unknown Completed [facility] SARS-COV-2 COVID-19 UNSPECIFIED VACCINE Unknown Completed [facility] Influenza Virus Vaccine Quad IM Multi-dose 6+ MO Unknown Completed [facility] Tetanus Toxoid, Absorbed Unknown Completed [facility] Vital Signs Vital Name Observation Time Observation Value Comments S ource BP Systolic 2023-06-17 00:00:00 117 mm[Hg] Vill j[facility]anny [facility] Height 2023-06-17 00:00:00 63 [in_i] Feliciano goode [facility] BP Diastolic 2023-06-17 00:00:00 75 mm[Hg] [facility] Body Weight 2023-06-17 00:00:00 181.4 [lb_av] [facility] BMI (Body Mass Index) 2023-06-17 00:00:00 32.1 kg/m2 [facility] Systolic blood pressure 2022-09-03 20:06:00 113 mm[Hg] [facility] Diastolic blood pressure 2022-09-03 20:06:00 80 mm[Hg] [facility] Heart rate 2022-09-03 20:06:00 85 /min Un[facility] Respiratory rate 2022-09-03 20:06:00 20 /min [facility] Body height 2022-09-03 20:06:00 [facility].5 [facility] weight 2022-09-03 20:06:00 [facility].825 [facility] BMI 2022-09-03 20:06:00 32.12 kg/m2 [facility] Oxygen saturation in Arterial blood by Pulse oximetry 2022-09-03 20:06:00 99 /min [facility] Systolic blood pressure 2022-06-05 20:13:00 130 mm[Hg] [facility] Diastolic blood pressure 2022-06-05 20:13:00 84 mm[Hg] [facility] Heart rate 2022-06-05 20:13:00 97 /min Unive [facility] Body height 2022-06-05 20:13:00 160 cm [facility] Body weight 2022-06-05 20:13:00 78.155 kg [facility] BMI 2022-06-05 20:13:00 30.52 kg/m2 [facility] Oxygen saturation in Arterial blood by Pulse oximetry 2022-06-05 20:13:00 100 /min [facility] Systolic blood pressure 2022-05-29 22:44:00 118 mm[Hg] [facility] Diastolic blood pressure 2022-05-29 22:44:00 74 mm[Hg] [facility] Heart rate 2022-05-29 22:44:00 92 /min [facility] Body height 2022-05-29 22:44:00 160 cm [facility] Body weight 2022-05-29 22:44:00 77.111 kg [facility] BMI 2022-05-29 22:44:00 30.11 kg/m2 [facility] Oxygen saturation in Arterial blood by Pulse oximetry 2022-05-29 22:44:00 99 /min [facility] BP Diastolic 2022-02-05 00:00:00 72 mm[Hg] [facility]an [facility] Height 2022-02-05 00:00:00 63 [in_i] [facility] BMI (Body Mass Index) 2022-02-05 00:00:00 30.1 kg/m2 [facility] BP Systolic 2022-02-05 00:00:00 108 mm[Hg] [facility] Body Weight 2022-02-05 00:00:00 170 [lb_av] [facility] Systolic blood pressure 2021-12-25 18:44:00 104 mm[Hg] [facility] Diastolic blood pressure 2021-12-25 18:44:00 71 mm[Hg] [facility] Heart rate 2021-12-25 18:44:00 98 /min [facility] Body temperature 2021-12-25 18:44:[address] [facility] Body height 2021-12-25 18:44:00 160 cm [facility] Body weight 2021-12-25 18:44:00 76.658 [facility] BMI 2021-12-25 18:44:00 29.94 kg/m2 [facility] Oxygen saturation in Arterial blood by Pulse oximetry 2021-12-25 18:44:00 99 /min [facility] BP Diastolic 2021-10-03 00:00:00 64 mm[Hg] [facility] Height 2021-10-03 00:00:00 63 [in_i] [facility] BMI (Body Mass Index) 2021-10-03 00:00:00 25.7 kg/m2 [facility] BP Systolic 2021-10-03 00:00:00 94 mm[Hg] [facility] Body Weight 2021-10-03 00:00:00 145 [lb_av] [facility] BP Diastolic 2021-08-14 00:00:00 60 mm[Hg] [facility] Height 2021-08-14 00:00:00 63 [in_i] [facility] BMI (Body Mass Index) 2021-08-14 00:00:00 27.8 kg/m2 [facility] BP Systolic 2021-08-14 00:00:00 91 mm[Hg] [facility] Body Weight 2021-08-14 00:00:00 156.8 [lb_av] [facility] BP Diastolic 2021-05-16 00:00:00 81 mm[Hg] [facility] Height 2021-05-16 00:00:00 63 [in_i] [facility] BMI (Body Mass Index) 2021-05-16 00:00:00 32.2 kg/m2 [facility] BP Systolic 2021-05-16 00:00:00 115 mm[Hg] [facility] Body Weight 2021-05-16 00:00:00 182 [lb_av] [facility] BP Diastolic 2020-10-11 00:00:00 77 mm[Hg] [facility] Height 2020-10-11 00:00:00 63 [in_i] [facility] BMI (Body Mass Index) 2020-10-11 00:00:00 30.5 kg/m2 [facility] BP Systolic 2020-10-11 00:00:00 113 mm[Hg] [facility] Body Weight 2020-10-11 00:00:00 172.4 [lb_av] [facility] BP Diastolic 2020-07-14 00:00:00 77 mm[Hg] [facility] Height 2020-07-14 00:00:00 63 [in_i] [facility] BMI (Body Mass Index) 2020-07-14 00:00:00 32.8 kg/m2 [facility] BP Systolic 2020-07-14 00:00:00 108 mm[Hg] [facility] Body Weight 2020-07-14 00:00:00 185 [lb_av] [facility]an [facility] BP Diastolic 2020-04-11 00:00:00 68 mm[Hg] [facility] Height 2020-04-11 00:00:00 63 [in_i] [facility] BMI (Body Mass Index) 2020-04-11 00:00:00 31.4 kg/m2 [facility] BP Systolic 2020-04-11 00:00:00 118 mm[Hg] [facility] Body Weight 2020-04-11 00:00:00 177 [lb_av] [facility] BP Diastolic 2019-02-10 00:00:00 75 mm[Hg] [facility] Height 2019-02-10 00:00:00 63 [facility]in_i[facility] BMI (Body Mass Index) 2019-02-10 00:00:00 25.7 kg/m2 [facility] BP Systolic 2019-02-10 00:00:00 120 mm[Hg] [facility] Body Weight 2019-02-10 00:00:00 145.1 [lb_av] [facility] Procedures Procedure Date / Time Performed Performing Clinician Source FLU VACC ([id number]), 6 MO-64 YRS, .5ML, IM, TIV (FLUCELVAX) 2024-02-19 18:30:[address] [facility] POCT SARS-COV-2 ANTIGEN (BINAX NOW) 2023-05-06 16:53:[address] [facility] THYROID STIMULATING HORMONE 2022-10-04 14:50:[address] [facility] LIPID PANEL ([id number])(TOTAL CHOLESTEROL, TRIGLYCERIDES, HDL) 2022-10-04 14:50:[address] [facility] GLYCOSYLATED HEMOGLOBIN (A1C) 2022-10-04 14:50:[address] [facility] PHYSICIAN ORDERS 2022-10-04 05:01:00 Doctor Unas signed, [place] [facility] PATIENT FINANCIAL POLICY 2022-09-03 19:30:31 Doctor Unassigned, [place] [facility] ASSIGNMENT OF BENEFITS 2022-05-29 22:26:18 Docto r Unassigned, [place] [facility] EXTERNAL PROVIDER RECORDS 2022-01-07 05:01:00 Doctor Unassigned, [place] [facility] Hysterectomy (Total) 2019-06-20 00:00:[address] [facility] [address], sinuses, w/o contrast 2019-02-10 00:00:00 [facility] Laparoscopic Sleeve Gastrectomy 2015-09-20 00:00:00 [facility] Sinus Surgery [facility] Plan of Care Planned Activity Planned Date Details Comments Source Diagnostic Test Pending 2023-06-17 00:00:00 glucose, fingerstick, blood [code = glucose, fingerstick, blood] [facility] Diagnostic Test Pending 2023-06-17 00:00:00 hemoglobin A1C, fingerstick [code = hemoglobin A1C, fingerstick] [facility] Instructions [facility] Encounters Start Date/Time End Date/Time Encounter Type Admission Type Attending [facility] Care Facility Care Department Encounter ID Source 2024-02-19 13:30:00 2024-02-19 13:45:00 Imm/Inj Visit Nurse-Adc, [facility] Imm Yosi Chau Nurse-Adc, [facility] AT [facility] 1.2.840.114 350.1.13.10 4.2.7.2.686 [id number] [facility] 2024-02-19 13:30:00 2024-02-19 13:30:00 Outpatient YOSI BAH [facility] [id number] [facility] 2023-06-17 00:00:00 2023-06-17 00:00:00 Outpatient Bui_Q_WAGDN U [facility] [id number] [facility] e 2023-06-17 00:00:00 2023-06-17 00:00:00 Claudy Grey MD: [id number] [facility] [place] [facility], [address], [place] [address] , Ph. [facility] [place] - [facility] - [place] - VM_HOU_Shaalonzo jaden Johnson [id number] [facility] Family [facility] e 2023-05-06 11:00:00 2023-05-06 11:00:00 Laboratory Only Only, Ang Db Test Unknown, Attending Monique Garcia [facility] 1..840.114 350.1.13.10 4.2.7.2.686 [id number] [facility] 2023-05-06 11:00:00 2023-05-06 10:55:40 Outpatient R MONIQUE GARCIA [facility] [id number] [facility] 2023-05-05 12:00:00 2023-05-05 12:00:00 Outpatient R [facility] [id number] [facility] 2022-10-11 15:30:00 2022-10-11 15:30:00 Outpatient R YURIDIA ARRIOLA [facility] [id number] [facility] 2022-10-07 00:00:00 2022-10-07 00:00:00 Patient Secure Msg Doctor Unassigned, [place] [facility]?BAKARI [facility] MEDICAL OFFICE BUILDING 1..840.114 350.1.13.10 4.2.7.2.686 [id number] [facility] 2022-10-04 10:45:00 2022-10-04 11:00:00 Client Success Specialist Visit Pob, Adc Lab Main Gabriela Luong [facility] BU[facility] 1..840.114 350.1.13.10 4.2.7.2.686 [id number] [facility] 2022-10-04 10:45:00 2022-10-04 10:45:00 Outpatient R GABRIELA LUONG [facility] [id number] [facility] 2022-10-04 00:00:00 2022-10-04 00:00:00 Orders Only Doctor Unassigned, [place] [facility] 1.2840.114 350.1.13.10 4.2.7.2.686 [id number] [facility] 2022-09-04 11:00:00 2022-09-04 11:00:00 Outpatient R MARSHA WILLS [facility] [id number] [facility] 2022-09-03 14:30:00 2022-09-03 15:44:33 Outpatient R YURIDIA ARRIOLA [facility] [id number] [facility] 2022-09-03 14:30:00 2022-09-03 15:44:33 Office Visit [facility] MEDICAL OFFICE BUILDING 1.84114 350.1.13.10 4.2.7.2.686 [id number] [facility] 2022-09-03 00:00:00 2022-09-03 00:00:00 Orders Only Doctor Unassigned, [place] [facility] 1.114 350.1.13.10 4.2.7.2.686 [id number] [facility] 2022-06-28 00:00:00 2022-06-28 00:00:00 Telephone [facility] MEDICAL OFFICE BUILDING 1.84114 350.1.13.10 4.2.7.2.686 [id number] [facility] 2022-06-05 14:00:00 2022-06-05 14:56:53 Outpatient R ELMACHERIE AVENDANOLIE [facility] [id number] [facility] 2022-06-05 14:00:00 2022-06-05 14:56:53 Office Visit Elma Marsha C[facility] MEDICAL OFFICE BUILDING 1.84114 350.1.13.10 4.2.7.2.686 [id number] [facility] 2022-05-29 16:30:00 2022-05-29 17:14:09 Outpatient R MARSHA WILLS [facility] [id number] [facility] 2022-05-29 16:30:00 2022-05-29 17:14:09 Office Visit Marsha Wills [facility] PE[facility] HYATT?[facility] 1.2.840.114 350.1.13.10 4.2.7.2.686 [id number] [facility] 2022-05-29 00:00:00 2022-05-29 00:00:00 Orders Only Doctor Unassigned, [place] [facility] 1.2.840.114 350.1.13.10 4.2.7.2.686 [id number] [facility] 2022-04-10 00:00:00 2022-04-10 00:00:00 Outpatient Que_CHELSEA MILLER VFP VFP [id number] [facility] 2022-02-05 00:00:00 2022-02-05 00:00:00 Outpatient Bui_Q_WAGDN U VFP VFP [id number] [facility] 2022-02-05 00:00:00 2022-02-05 00:00:00 Outpatient Bui_Q_WAGDN U VFP VFP [id number] [facility] 2022-02-05 00:00:00 2022-02-05 00:00:00 Claudy Grey MD: [id number] [facility], [address], [place] [address] , Ph. [facility] [place] [facility] [place] - ALPHONSO_NICOLAS_Garland [facility] [id number] [facility] 2022-01-23 00:00:00 2022-01-23 00:00:00 Outpatient Felizel_T VFP VFP [id number] [facility] 2022-01-22 00:00:00 2022-01-22 00:00:00 Outpatient Bui_Q_WAGDN U VFP VFP [id number] [facility] 2022-01-07 00:00:00 2022-01-07 00:00:00 Orders Only Doctor Unassigned, [place] [facility] 1..840.114 350.1.13.10 4.2.7.2.686 [id number] [facility] 2021-12-25 13:30:00 2021-12-25 14:00:00 Office Visit Jose Roberto Prado [facility] 1..840.114 350.1.13.10 4.2.7.2.686 [id number] [facility] 2021-12-25 13:30:00 2021-12-25 13:30:00 Outpatient JOSE ROBERTO BOGGS [facility] [id number] [facility] 2021-12-18 00:00:00 2021-12-18 00:00:00 Outpatient Daniel_T VFP VFP [id number] [facility] 2021-11-13 02:41:00 2021-11-13 02:41:00 Outpatient Daniel_T VFP VFP [id number] [facility] 2021-10-26 09:19:00 2021-10-26 09:19:00 Outpatient Bui_Q_WAGDN U VFP VFP [id number] [facility] 2021-10-24 08:30:00 2021-10-24 08:45:00 Client Success Specialist Visit Xi, Adc Lab [facility] 1..840.114 350.1.13.10 4.2.7.2.686 [id number] [facility] 2021-10-24 08:30:00 2021-10-24 08:30:00 Outpatient GABRIELA GRULLON [facility] [id number] [facility] 2021-10-24 00:00:00 2021-10-24 00:00:00 Orders Only Doctor Unassigned, [place] [facility] 1.2840.114 350.1.13.10 4.2.7.2.686 [id number] [facility] 2021-10-18 00:00:00 2021-10-18 00:00:00 Patient Secure Msg Doctor Unassigned, [place] [facility] 1.840.114 350.1.13.10 4.2.7.2.686 [id number] [facility] 2021-10-11 15:29:12 2021-10-11 23:59:00 Outpatient Jannie PARR CAMRON [facility] [id number] [facility] 2021-10-11 15:29:12 2021-10-11 23:59:00 Hospital Encounter Camron Parr [facility] ([facility]) 1..840.114 350.1.13.10 4.2.7.2.686 [id number] [facility] 2021-10-11 15:29:12 2021-10-11 23:59:00 Outpatient Jannie PARR CAMRON [facility] [id number] [facility] 2021-10-08 11:00:00 2021-10-08 11:15:00 Client Success Specialist Visit Lab, Marsha Calderon [facility] 1..840.114 350.1.13.10 4.2.7.2.686 [id number] [facility] 2021-10-08 10:00:00 2021-10-08 10:33:16 Outpatient CAMRON PIRES [facility] [id number] [facility] 2021-10-08 10:00:00 2021-10-08 10:33:16 Office Visit Parr, Camron [facility]?BAKARI [facility] MEDICAL OFFICE BUILDING 1.2.840.114 350.1.13.10 4.2.7.2.686 [id number] [facility] 2021-10-08 10:00:00 2021-10-08 10:33:16 Outpatient R DELFINO PARRN [facility] [id number] [facility] 2021-10-03 00:00:00 2021-10-03 00:00:00 Claudy Grey MD: [id number] [address] [place] [facility], [address], [place] [address] , Ph. Que_T VFP [place] - [facility] - VM_HOU_[place] [id number] [facility] e 2021-09-28 11:30:00 2021-09-28 13:03:14 Outpatient R MARSHA WILLS [facility] [id number] [facility] 2021-09-28 11:30:00 2021-09-28 13:03:14 Office Visit Marsha Wills [facility] MEDICAL OFFICE BUILDING 1.2.840.114 350.1.13.10 4.2.7.2.686 [id number] [facility] 2021-09-05 04:42:00 2021-09-05 04:42:00 Outpatient Que_Gene VFP VFP [id number] [facility] e 2021-09-04 11:36:00 2021-09-04 11:36:00 Outpatient Bui_Q_WAGDN U VFP VFP [id number] [facility] e 2021-08-23 00:00:00 2021-08-23 00:00:00 Orders Only Doctor Unassigned, [place] [facility] 1..840.114 350.1.13.10 4.2.7.2.686 [id number] [facility] 2021-08-15 00:00:00 2021-08-15 00:00:00 Telephone Bradly Navarro [facility] OLE[facility]IO?[facility] OFF[facility] BUILD[facility] 1.2.840.114 350.1.13.10 4.2.7.2.686 [id number] [facility] 2021-08-14 00:00:00 2021-08-14 00:00:00 Claudy Grey MD: [id number], [address], [place] [address] , Ph. [facility] _[facility]_Shad [place] [id number] [facility] 2021-07-16 11:00:00 2021-07-16 11:15:00 Client Success Specialist Visit Potea, Adc Lab Main Jesu Kiser [facility] NAL BUILDING 1..840.114 350.1.13.10 4.2.7.2.686 [id number] [facility] 2021-07-16 11:00:00 2021-07-16 11:00:00 Outpatient R JESU KISER [facility] [id number] [facility] 2021-07-16 00:00:00 2021-07-16 00:00:00 Orders Only Doctor Unassigned, [place] [facility] 1.2.840.114 350.1.13.10 4.2.7.2.686 [id number] [facility] 2021-07-13 16:00:00 2021-07-13 17:03:21 Outpatient R JESU KISER [facility] [id number] [facility] 2021-07-13 16:00:00 2021-07-13 17:03:21 Office Visit Jesu Kiser [facility] OFFICE BUILDING 1.2.840.114 350.1.13.10 4.2.7.2.686 [id number] [facility] 2021-07-02 02:19:00 2021-07-02 02:19:00 Outpatient Daniel_T VFP VFP [id number] [facility] e 2021-05-31 03:30:00 2021-05-31 03:30:00 Outpatient Daniel_T VFP VFP [id number] [facility] e 2021-05-25 10:45:00 2021-05-25 11:00:00 Client Success Specialist Visit Lab, Jesu Carmona [facility] MEDICAL OFFICE BUILDING 1.2.840.114 350.1.13.10 4.2.7.2.686 [id number] [facility] 2021-05-25 10:45:00 2021-05-25 10:45:00 Outpatient R JESU KISER [facility] [id number] [facility] 2021-05-25 09:30:00 2021-05-25 10:37:03 Office Visit Jose Roberto Prado [facility]?BAKARI [facility] MEDICAL OFFICE BUILDING 1.2.840.114 350.1.13.10 4.2.7.2.686 [id number] [facility] 2021-05-25 09:30:00 2021-05-25 10:37:03 Outpatient R JOSE ROBERTO PRADO [facility] [id number] [facility] 2021-05-25 00:00:00 2021-05-25 00:00:00 Letter (Out) Johan Jose [facility] MEDICAL OFFICE BUILDING 1.2.840.114 350.1.13.10 4.2.7.2.686 [id number] [facility] 2021-05-22 07:30:00 2021-05-22 07:45:00 Client Success Specialist Visit Xi, Alie Lab Main [place], [facility] BUILDING 1..114 350.1.13.10 4.2.7.2.686 [id number] [facility] 2021-05-22 07:30:00 2021-05-22 07:30:00 Outpatient Jannie LUONG [facility] [id number] [facility] 2021-05-22 00:00:00 2021-05-22 00:00:00 Orders Only Doctor Unassigned, [place] [facility] 1.114 350.1.13.10 4.2.7.2.686 [id number] [facility] 2021-05-17 11:37:00 2021-05-17 11:37:00 Outpatient Bui_Q_WAGDN U VFP P [id number] [facility] 2021-05-16 00:00:00 2021-05-16 00:00:00 Claudy Grey MD: [id number] [facility], [address], [place] [address] , Ph. Que[facility] - VM_HOU_Shad [place] [id number] [facility] 2021-05-10 11:45:00 2021-05-10 12:00:00 Laboratory Only Only, Adc Test Gabriela Luong [facility] .84.114 350.1.13.10 4.2.7.2.686 [id number] [facility] 2021-05-10 11:45:00 2021-05-10 11:45:00 Outpatient GABRIELA GRULLON [facility] [id number] [facility] 2021-05-10 00:00:00 2021-05-10 00:00:00 Orders Only Doctor Unassigned, [place] [facility] 1.114 350.1.13.10 4.2.7.2.686 [id number] [facility] 2021-04-24 12:15:00 2021-04-24 12:30:00 Client Success Specialist Visit Pob, Adc Lab Main Jesu Kiser [facility] NAL BUILDING 1.2.840.114 350.1.13.10 4.2.7.2.686 [id number] [facility] 2021-04-24 12:15:00 2021-04-24 12:15:00 Outpatient R JESU KISER [facility] [id number] [facility] 2021-04-24 00:00:00 2021-04-24 00:00:00 Letter (Out) Mary Hernandez [facility] 1.2840.114 350.1.13.10 4.2.7.2.686 [id number] [facility] 2021-03-06 13:19:43 2021-03-06 14:08:46 Office Visit Jesu Kiser [facility] BUILD[facility] 1.284.114 350.1.13.10 4.2.7.2.686 [id number] [facility] 2021-03-06 13:15:00 2021-03-06 14:08:46 Outpatient R JESU KISER [facility] [id number] [facility] 2021-03-06 13:15:00 2021-03-06 14:08:46 Outpatient R JESU KISER [facility] [id number] [facility] 2021-03-05 11:21:14 2021-03-05 11:36:14 Laboratory Only Only, Adc Test Jesu Kiser [facility] 1.2.840.114 350.1.13.10 4.2.7.2.686 [id number] [facility] 2021-03-05 10:45:00 2021-03-05 10:45:00 Outpatient R RASHEL ASIANAT [facility] [id number] [facility] 2021-03-02 09:46:00 2021-03-02 09:46:00 Outpatient Glo VFP VFP [id number] Jose L bowser 2021-02-28 11:00:00 2021-02-28 11:00:00 Outpatient R RASHEL ASIANAT [facility] [id number] [facility] 2021-02-28 11:00:00 2021-02-28 11:00:00 Outpatient R RASHEL ASIANAT [facility] [id number] [facility] 2021-02-27 14:54:20 2021-02-27 15:58:35 Office Visit Rashel Asianat [facility]?JTABRAZO [facility] MEDICAL OFFICE BUILDING 1.2.840.114 350.1.13.10 4.2.7.2.686 [id number] [facility] 2021-02-27 14:30:00 2021-02-27 15:58:35 Outpatient R RASHEL ASIANAT [facility] [id number] [facility] 2021-02-27 14:30:00 2021-02-27 14:30:00 Outpatient R RASHEL ASIANAT [facility] [id number] [facility] 2021-02-05 00:00:00 2021-02-05 00:00:00 Patient Secure Msg RashelJesu [facility] Olegario?[facility] Medical Office Building 1.2.840.114 350.1.13.10 4.2.7.2.686 [id number] [facility] 2021-01-04 16:04:01 2021-01-04 16:19:01 Laboratory Only Only, Ang Db Test Sukhdev Bender [facility] Olegario?[facility] Medical Office Building 1.840.114 350.1.13.10 4.2.7.2.686 [id number] [facility] 2021-01-04 16:15:00 2021-01-04 16:15:00 Outpatient R [facility] [id number] [facility] 2021-01-01 08:30:23 2021-01-01 09:58:30 Office Visit Rashel Asianat Arsenio [facility]?Bakari caba Medical Office Building 1.84.114 350.1.13.10 4.2.7.2.686 [id number] [facility] 2021-01-01 08:30:00 2021-01-01 08:30:00 Outpatient R RASHELJESU [facility] [id number] [facility] 2020-11-29 12:30:00 2020-11-29 12:30:00 Outpatient R AG [facility] [id number] [facility] 2020-11-29 11:50:03 2020-11-29 12:05:03 Laboratory Only Only, Adc Test Ag [facility] 1.84.114 350.1.13.10 4.2.7.2.686 [id number] [facility] 2020-11-29 00:00:00 2020-11-29 00:00:00 Orders Only Doctor Unassigned, [place] [facility] 1.2.114 350.1.13.10 4.2.7.2.686 [id number] [facility] 2020-11-29 00:00:00 2020-11-29 00:00:00 Telephone Zakia Barrera [facility] 1..114 350.1.13.10 4.2.7.2.686 [id number] [facility] 2020-11-28 11:59:13 2020-11-28 12:14:13 Client Success Specialist Visit Pob, Adc Lab Main Jesu Kiser [facility] Building 1..840.114 350.1.13.10 4.2.7.2.686 [id number] [facility] 2020-11-28 10:03:22 2020-11-28 10:55:43 Office Visit Jesu Kiser [facility] Office Building One 1.840.114 350.1.13.10 4.2.7.2.686 [id number] [facility] 2020-11-28 10:00:00 2020-11-28 10:00:00 Outpatient JESU SAWYER [facility] [id number] [facility] 2020-11-09 10:55:20 2020-11-09 11:10:20 Client Success Specialist Visit Pob, Adc Lab Main Jesu Kiser [facility] 1.2.840.114 350.1.13.10 4.2.7.2.686 [id number] [facility] 2020-11-09 08:30:00 2020-11-09 08:30:00 Outpatient JESU SAWYER [facility] [id number] [facility] 2020-11-09 00:00:00 2020-11-09 00:00:00 Orders Only Doctor Unassigned, [place] [facility] 1.840.114 350.1.13.10 4.2.7.2.686 [id number] [facility] 2020-10-13 12:26:00 2020-10-13 12:26:00 Outpatient Bui_Q_WAGDN U VFP VFP [id number] [facility] 2020-10-11 00:00:00 2020-10-11 00:00:00 Claudy Grey MD: [id number], [address], [place] [address] , Ph. Que_Gene P [place] - [facility] - _NICOLAS_Garland Johnson [id number] [facility] e 2020-10-11 00:00:00 2020-10-11 00:00:00 Orders Only Doctor Unassigned, [place] [facility] 1..114 350.1.13.10 4.2.7.2.686 [id number] [facility] 2020-10-10 02:11:00 2020-10-10 02:11:00 Outpatient Glo [facility] [id number] [facility] 2020-10-03 00:00:00 2020-10-03 00:00:00 Telephone Team, [facility] 1..114 350.1.13.10 4.2.7.2.686 [id number] [facility] 2020-09-02 09:14:53 2020-09-02 09:34:53 Laboratory Only Lab, Adc Fam Sukhdev Pena [facility] Office Building One 1..114 350.1.13.10 4.2.7.2.686 [id number] [facility] 2020-09-02 09:20:00 2020-09-02 09:20:00 Outpatient R [facility] [id number] [facility] 2020-08-14 13:40:00 2020-08-14 13:40:00 Outpatient R YURIDIA ARRIOLA [facility] [id number] [facility] 2020-08-14 10:39:52 2020-08-14 10:54:52 Laboratory Only Only, Adc Test Jesu Kiser [facility] 1.84.114 350.1.13.10 4.2.7.2.686 [id number] [facility] 2020-07-25 00:00:00 2020-07-25 00:00:00 Orders Only Doctor Unassigned, [place] [facility] 1.2.840.114 350.1.13.10 4.2.7.2.686 [id number] [facility] 2020-07-25 00:00:00 2020-07-25 00:00:00 Orders Only Doctor Unassigned, [place] [facility] 1.2.840.114 350.1.13.10 4.2.7.2.686 [id number] 2020-07-24 14:03:59 2020-07-24 14:18:59 Client Success Specialist Visit [facility], [facility] 1.2.840.114 350.1.13.10 4.2.7.2.686 [id number] [facility] 2020-07-24 14:03:59 2020-07-24 14:18:59 Client Success Specialist Visit [facility], [facility] 1.2.840.114 350.1.13.10 4.2.7.2.686 [id number] 2020-07-24 10:00:00 2020-07-24 10:00:00 Outpatient Jannie LUONG CABELL [facility] [id number] [facility] 2020-07-19 06:36:00 2020-07-19 06:36:00 Outpatient Bui_Q_WAG [facility] [id number] [facility] 2020-07-14 00:00:00 2020-07-14 00:00:00 Claudy Grey MD: [id number] [facility] [address], [place] [address] , Ph. Que_Gene [facility] [place] - [facility] - _HOU_Shaalonzo ow [place] [id number] [facility] Family Reginald bowser 2020-06-02 08:00:00 2020-06-02 08:00:00 Outpatient R MELANIA [facility] [id number] [facility] 2020-05-28 17:04:02 2020-05-28 17:24:02 Urgent Care Provider, [facility] [address] 1..114 350.1.13.10 4.2.7.2.686 [id number] [facility] 2020-05-28 17:04:02 2020-05-28 17:24:02 Urgent Care Provider, [facility] [address] 1..114 350.1.13.10 4.2.7.2.686 [id number] 2020-05-28 17:20:00 2020-05-28 17:20:00 Outpatient R [facility]ON [facility] [id number] [facility] 2020-05-16 00:00:00 2020-05-16 00:00:00 Patient Secure Msg Doctor Unassigned, [place] [facility] 1.114 350.1.13.10 4.2.7.2.686 [id number] [facility] 2020-05-15 15:04:50 2020-05-15 15:19:50 Client Success Specialist Visit [facility], Adc Lab Main Jesu Kiser [facility] 1.114 350.1.13.10 4.2.7.2.686 [id number] [facility] 2020-05-15 15:04:50 2020-05-15 15:19:50 Client Success Specialist Visit Pob, Adc Lab Main [facility] 1..114 350.1.13.10 4.2.7.2.686 [id number] 2020-05-15 15:00:00 2020-05-15 15:00:00 Outpatient R JESU KISER [facility] [id number] [facility] 2020-05-15 00:00:00 2020-05-15 00:00:00 Orders Only Doctor Unassigned, [place] [facility] 1.2.840.114 350.1.13.10 4.2.7.2.686 [id number] [id number] [facility] 2020-05-15 00:00:00 2020-05-15 00:00:00 Orders Only Doctor Unassigned, [place] [facility] 1.2.840.114 350.1.13.10 4.2.7.2.686 [id number] 2020-05-12 17:00:00 2020-05-12 17:00:00 Outpatient R MELANIA PARIS [facility] [id number] [facility] 2020-05-10 10:00:00 2020-05-10 10:00:00 Outpatient Jannie AGGABRIELA [facility] [id number] [facility] 2020-05-05 14:37:30 2020-05-05 14:52:30 Laboratory Only Only, Adc Test Gabriela Luong [facility] 1.2.840.114 350.1.13.10 4.2.7.2.686 [id number] [facility] 2020-05-05 14:37:30 2020-05-05 14:52:30 Laboratory Only Only, Adc Test [facility] 1.2.840.114 350.1.13.10 4.2.7.2.686 [id number] 2020-05-05 14:45:00 2020-05-05 14:45:00 Outpatient R [facility] [id number] [facility] 2020-04-15 01:55:2020-04-15 01:55:00 Outpatient Bui_Q_WAG VFP VFP [id number] [facility] 2020-04-11 00:00:00 2020-04-11 00:00:00 Claudy Grey MD: [id number] [facility], [address] [address] , Ph. Daniel_T VFP [place] - [facility] - VM_George ring [id number] [facility] 2020-04-10 05:10:00 2020-04-10 05:10:00 Outpatient Daniel_T VFP VFP [id number] [facility] 2020-04-04 11:25:00 2020-04-04 11:25:00 Outpatient Bui_Q_WAG VFP VFP [id number] [facility] 2020-02-01 08:33:57 2020-02-01 08:48:57 Client Success Specialist Visit [facility], Adc Lab [facility] Gabriela Luong [facility] 1.2840.114 350.1.13.10 4.2.7.2.686 [id number] [facility] 2020-02-01 08:33:57 2020-02-01 08:48:57 Client Success Specialist Visit [facility] 1.2.840.114 350.1.13.10 4.2.7.2.686 [id number] 2020-02-01 07:30:00 2020-02-01 07:30:00 Outpatient GABRIELA GRULLON [facility] [id number] [facility] 2020-02-01 00:00:00 2020-02-01 00:00:00 Orders Only Doctor Unassigned, [place] [facility] 1.2840.114 350.1.13.10 4.2.7.2.686 [id number] [id number] [facility] 2020-02-01 00:00:00 2020-02-01 00:00:00 Orders Only Doctor Unassigned, [place] [facility] 1.20.114 350.1.13.10 4.2.7.2.686 [id number] 2020-01-13 14:54:12 2020-01-13 15:28:24 Nurse Visit Jesu Kiser [facility] Office Building One 1.20.114 350.1.13.10 4.2.7.2.686 [id number] [facility] 2020-01-13 14:54:12 2020-01-13 15:28:24 Nurse Visit Jesu Kiser [facility] Office Building One 1..114 350.1.13.10 4.2.7.2.686 [id number] 2020-01-13 15:00:00 2020-01-13 15:00:00 Outpatient R JESU KISER [facility] [id number] [facility] 2020-01-05 10:45:00 2020-01-05 23:59:00 Hospital Encounter Jesu Kiser [facility] 1..114 350.1.13.10 4.2.7.2.686 [id number] [facility] 2020-01-05 00:00:00 2020-01-05 00:00:00 Outpatient R JESU KISER [facility] [id number] [facility] 2020-01-05 00:00:00 2020-01-05 00:00:00 Orders Only Doctor Unassigned, [place] [facility] 1.20.114 350.1.13.10 4.2.7.2.686 [id number] [id number] [facility] 2020-01-03 13:16:48 2020-01-03 14:12:27 Office Visit Jesu Kiser [facility] Office Building One 1.20.114 350.1.13.10 4.2.7.2.686 [id number] [facility] 2020-01-03 13:16:48 2020-01-03 14:12:27 Office Visit Jesu Kiser [facility] Office Building One 1.2.840.114 350.1.13.10 4.2.7.2.686 [id number] 2020-01-03 13:30:00 2020-01-03 13:30:00 Outpatient Jannie ASIA KISERKARENSHARONDA [facility] [id number] [facility] 2019-12-29 12:00:00 2019-12-29 12:00:00 Outpatient Jeanine Mullen [facility] [id number] [facility] 2019-12-22 14:45:00 2019-12-22 14:45:00 Outpatient ANG ESTRADA [facility] [id number] [facility] 2019-12-22 13:07:36 2019-12-22 13:22:36 Client Success Specialist Visit 2, Adc Lab [facility]o [facility] 1..840.114 350.1.13.10 4.2.7.2.686 [id number] [facility] 2019-12-22 00:00:00 2019-12-22 00:00:00 Orders Only Doctor Unassigned, [place] [facility] 1.2.840.114 350.1.13.10 4.2.7.2.686 [id number] [facility] 2019-11-21 20:00:00 2019-11-21 20:00:00 Outpatient NONA RODAS [facility] [id number] [facility] 2019-11-19 07:15:00 2019-11-19 07:15:00 Outpatient ZAKIA MALDONADO [facility] [id number] [facility] 2019-11-19 00:00:2019-11-19 00:00:00 Orders Only Doctor Unassigned, [place] [facility] 1.840.114 350.1.13.10 4.2.7.2.686 [id number] [facility] 2019-11-04 07:00:00 2019-11-04 07:00:00 Outpatient Jeanine Palm [facility] RADI [id number] [facility] 2019-10-28 12:00:00 2019-10-28 12:00:00 Outpatient Jeanine Palm [facility] JACK [id number] 90 [facility] 2019-10-14 08:00:00 2019-10-14 08:00:00 Outpatient R [facility] [id number] [facility] 2019-10-14 00:00:00 2019-10-14 00:00:00 Telephone Den Francis [facility] 1.840.114 350.1.13.10 4.2.7.2.686 [id number] [facility] 2019-10-12 13:16:55 2019-10-12 13:36:55 Urgent Care Pob1, Acute Care Clinic Yuridia Arriola [facility] Office Building One 1..840.114 350.1.13.10 4.2.7.2.686 [id number] [facility] 2019-10-12 13:20:00 2019-10-12 13:20:00 Outpatient R [facility] [id number] [facility] 2019-07-21 00:00:00 2019-07-21 00:00:00 Telephone Jesu [facility] 1.840.114 350.1.13.10 4.2.7.2.686 [id number] [facility] 2019-07-20 00:00:00 2019-07-20 00:00:00 Orders Only Doctor Unassigned, [place] [facility] 1.2840.114 350.1.13.10 4.2.7.2.686 [id number] [facility] 2019-05-27 08:50:43 2019-05-27 09:05:43 Client Success Specialist Visit Pob, Adc Lab Main Galo [facility] 1.2840.114 350.1.13.10 4.2.7.2.686 [id number] [facility] 2019-05-27 08:45:00 2019-05-27 08:45:00 Outpatient R GALO BAILEY [facility] [id number] [facility] 2019-05-27 00:00:00 2019-05-27 00:00:00 Orders Only Doctor Unassigned, [place] [facility] 1.2840.114 350.1.13.10 4.2.7.2.686 [id number] [facility] 2019-05-18 11:12:41 2019-05-18 11:41:53 Office Visit Jesu Kiser [facility] Office Building One 1.2840.114 350.1.13.10 4.2.7.2.686 [id number] [facility] 2019-05-06 15:35:30 2019-05-06 15:50:30 Client Success Specialist Visit 2, Adc Lab Farrell, Jesu C[facility] 1.2840.114 350.1.13.10 4.2.7.2.686 [id number] [facility] 2019-05-06 15:45:00 2019-05-06 15:45:00 Outpatient R JESU KISER [facility] [id number] [facility] 2019-05-06 00:00:00 2019-05-06 00:00:00 Telephone Jesu Kiser [facility] Office Building One 1.114 350.1.13.10 4.2.7.2.686 [id number] [facility] 2019-05-06 00:00:00 2019-05-06 00:00:00 Orders Only Doctor Unassigned, [place] [facility] 1.0.114 350.1.13.10 4.2.7.2.686 [id number] [facility] 2019-05-04 16:21:00 2019-05-04 16:21:00 Office Visit RashelAsia byrnenat Arsenio [facility] Office Building One 1..114 350.1.13.10 4.2.7.2.686 [id number] [facility] 2019-02-23 12:11:06 2019-02-23 23:59:00 Outpatient R RADIOLOGY [facility] [id number] [facility] 2019-02-10 00:00:00 2019-02-10 00:00:00 Angélica Evans MD: [address] [facility], [address], [place] [address] , Ph. [facility] - Otolaryngol ogy-MOB [id number] [address] [facility] 2019-02-05 12:30:00 2019-02-05 12:30:00 Outpatient R RASHEL ASIANAT [facility] [id number] [facility] 2018-12-22 12:01:47 2018-12-22 23:59:00 Hospital Encounter Rashel Asianat Cesar [facility] 1..114 350.1.13.10 4.2.7.2.686 [id number] [facility] 2018-12-22 10:59:24 2018-12-22 11:43:56 Office Visit Rashel Asianat Cesar [facility] Office Building One 1.2.840.114 350.1.13.10 4.2.7.2.686 [id number] [facility] 2018-12-22 00:00:00 2018-12-22 00:00:00 Letter (Out) Jesu Kiser [facility] Office Building One 1.2840.114 350.1.13.10 4.2.7.2.686 [id number] [facility] 2018-12-10 10:58:48 2018-12-10 11:35:03 Office Visit Jesu Kiser [facility] Office Building One 1.20.114 350.1.13.10 4.2.7.2.686 [id number] [facility] 2018-12-10 00:00:00 2018-12-10 00:00:00 Orders Only Doctor Unassigned, [place] [facility] 1.2840.114 350.1.13.10 4.2.7.2.686 [id number] [facility] 2018-11-17 12:51:29 2018-11-17 13:06:29 Client Success Specialist Visit 1, Adc Lab Galo Bailey [facility] 1.2.840.114 350.1.13.10 4.2.7.2.686 [id number] [facility] 2018-11-17 00:00:00 2018-11-17 00:00:00 Orders Only Doctor Unassigned, [place] [facility] 1.2840.114 350.1.13.10 4.2.7.2.686 [id number] [facility] Results Test Description Test Time Test Comments Results Result Co mments Source [facility]/volume] in Capillary [id number] 11:05:52* Test Item Value Reference Range Interpretation Comme nts Blood Glucose: mg/dl (test c ode = Blood Glucose: mg/dl) 103 [facility] SARS-COV-2 ANTIGEN (BINAX NOW)2023-05-06 17:08:00* Test Item Value Reference Range Interpretation Comme nts POCT SARS-COV-2 ANTIGEN (silas t code = 92511-1) Not Detected Not Detected On board controls acceptable with C Line (test code = 3574) Yes Lab Interpretation (test cod e = 74577-0) Normal [facility] (14163)(TOTAL CHOLESTEROL, TRIGLYCERIDES, HDL)2022-10-04 16:37:22* Test Item Value Reference Range Interpretation Comme nts CHOL (test code = 7569448714) 179 mg/dL 120-200 HDL (test code = 9770575837) 105 mg/dL >=50 HDLC RATIO (test code = 0238105643) 1.7 <=4.5 TRIG (test code = 7903337412) 58 mg/dL 30-170 LDL CHOL (test code = 41549-4) 62 mg/dL <=160 VLDL (test code = 6103289566) 12 mg/dL 5-60 Lab Interpretation (test cod e = 33375-0) Normal [facility] Hospital[facility]YROID STIMULATING [id number] 16:32:43 * Test Item Value Reference Range Interpretation Comme nts TSH (test code = 7516475539) 1.45 See_Comment [Automated messa ge] The system which generated this result transmitted reference range: 0.45 - 4.70 mIU/L. The reference range was not used to interpret this result as normal/abnormal. Lab Interpretation (test code = 59393-4) Normal [facility] HospitalGLYCOSYLATED HEMOGLOBIN (A1C)2022-10-04 15:54:07* Test Item Value Reference Range Interpretation Comme nts HGB A1C (test code = 4548-4) 6.7 % 4.0-5.7 H ZAIRA (test code = ZAIRA) Reference RangesNormal: <5.7%Prediabetes: 5.7 - 6.4%Diabetes: > 6.5% Lab Interpretation (test code = 03582-1) Abnormal [facility]emoglobin A1c measurement device panel 2022-02-05 13:43:31* Test Item Value Reference Range Interpretation Comme nts Hemoglobin A1c/Hemoglobin.to lyle in Blood (test code = 4548-4) 8.2 % 5.7-6.4 [facility] [Mass/volume] in Capillary [id number] 13:39:45* Test Item Value Reference Range Interpretation Comme nts Blood Glucose: mg/dl (test c ode = Blood Glucose: mg/dl) 103 [facility] Practice[facility] [Mass/volume] in Capillary [id number] 16:22:01* Test Item Value Reference Range Interpretation Comme nts Blood Glucose: mg/dl (test c ode = Blood Glucose: mg/dl) 107 [facility] CenterHemoglobin A1c measurement device owwbw6959-71-29 10:43:27* Test Item Value Reference Range Interpretation Comme [facility] Hemoglobin A1C Fingerstick: (test code = Hemoglobin A1C Fingerstick:) 7.0 [facility] [Mass/volume] in Capillary [id number] 10:39:53* Test Item Value Reference Range Interpretation Comme nts Blood Glucose: mg/dl (test c ode = Blood Glucose: mg/dl) 256 [facility] CenterHemoglobin A1c measurement device [id number] 15:03:04* Test Item Value Reference Range Interpretation Comme [facility] Hemoglobin A1C Fingerstick: (test code = Hemoglobin A1C Fingerstick:) 8.1 [facility] [Mass/volume] in Capillary lueax3353-53-90 15:02:56* Test Item Value Reference Range Interpretation Comme nts Blood Glucose: mg/dl (test c ode = Blood Glucose: mg/dl) 136 [facility]- DUP AB/PEL/SC/[id number] 07:44:00Patient Name: SIDNEY ROBERTSON Unit No: [id number] EXAMS: CPT CODE: [id number] DUP AB/PEL/SC/LTD 61178 CLINICAL HISTORY: Pelvic pain. COMPARISON: August 21, 2017 Real- time ultrasound examination of thepelvis was performed using [...] Print D/T: S: 11/04/2019 (0747) [facility] NAME: SIDNEY ROBERTSON Radiology Department PHYS: Jeanine Wills [address] : 1990 AGE: 29 SEX: F [place] [address] LOC: F.RAD PHONE #: [phone] EXAM DATE: 11/04/2019 STATUS: REG CLI FAX #: [phone] RAD NO: Page 1 Signed Report Patient Name: SIDNEY ROBERTSON Unit No: [id number] EXAMS: CPT CODE: [id number] DUP AB/PEL/SC/LTD 69629 (Continued) [facility] NAME: AMIE ROBERTSONIA Arsenio Radiology Department PHYS: CIARA Jeanine Palm [address] : 1990 AGE: 29 SEX: F [place] [address] LOC: F.RAD PHONE #: [phone] EXAM DATE: 11/04/2019 STATUS: REG CLI FAX #: [phone] RAD NO: Page 2 Signed Report- US PELVIS COMPLETE 2019-11-04 07:44:00Patient Name: SIDNEY ROBERTSON Unit No: [id number] EXAMS: CPT CODE: [id number] US PELVIS [id number] CLINICAL HISTORY: Pelvic pain. COMPARISON: August 21, [...] Print D/T: S: 11/04/2019 (0747) [facility] NAME: ISDNEY ROBERTSON Rad iology Department PHYS: Jeanine Wills [address] : 1990 AGE: 29 SEX: F [place], [place] [address] LOC: MargarethRAD PHONE #: [phone] EXAM DATE: 11/04/2019 STATUS: REG CLI FAX #: [phone] RAD NO: Page 1 Signed Report Patient Name: AILYNSIDNEY Cesar Unit No: [id number] EXAMS: CPT CODE: [id number] US PELVIS COMPLETE [address]203 (Continued) [facility] NAME: SIDNEY ROBERTSON Radiology Department PHYS: Jeanine Wills [address] : 1990 AGE: 29 SEX: F [place], [place] [address] LOC: Louie.RAD PHONE #: [phone] EXAM DATE: 11/04/2019 STATUS: REG CLI FAX #: [phone] RAD NO: Page 2 Signed Report- US TRANSVAGINAL W/[id number] 07:44:00Patient Name: SIDNEY ROBERTSON Unit No: [id number] EXAMS: CPT CODE: [id number] US TRANSVAGINAL W/PELVIS 04341 CLINICAL HISTORY: Pelvic pain. COMPARISON: August 21, 2017 Real-time ultrasound examinationof the pelvis was performed using transabdominal and [...] at 0744 Reported and signed by: Deion uBrr MD CC: Jeanine Palm MD Technologist: Janelle Sam RDTN Probe: [id number] Trnscrbd D/ (0744) t.DANERJudithYOS Orig Print D/T: S: 11/04/2019 (0747) [facility] [place] NAME: SIDNEY ROBERTSON Radiology Department PHYS: [facility].Abram Jeanine Palm [address] : 1990 AGE: 29 SEX: F [place], [place] [address] LOC: MargarethRAD PHONE #: [phone] EXAM DATE:11/04/2019 STATUS: REG CLI FAX #: [phone] RAD NO: Page 1 Signed Report Patient Name: SIDNEY ROBERTSON Unit No: [id number] EXAMS: CPT CODE: [id number] US TRANSVAGINAL W/PELVIS 42614 (Continued)[facility] [place] NAME: SIDNEY ROBERTSON Radiology Department PHYS: JAILENE.Jeanine Anton [address] : 1990 AGE: 29 SEX: F [place], [place] [address] LOC: JAGRUTI PHONE #: [phone] EXAM DATE: 11/04/2019 STATUS: REG CLI FAX #: [phone] RAD NO: Page 2 Signed Report
[2024-04-16] MEDS ORDERED: NA CHLORIDE 0.9% 500 ML ONE (16:31)
[2024-04-16] MEDS ORDERED: ASPIRIN 81 MG CHEWABLE TABLET ONE (16:31)
[2024-04-16 16:46] LABS: Absolute Eosinophils 0.1 K/uL (0-0.5); Absolute Lymphocytes (CBC) 1.8 K/uL (0.7-4.9); Absolute Monocytes 0.6 K/uL (0.1-1.3); Absolute Neutrophil 7.5 K/uL (1.8-8.0); Basophils % 0.4 % (0-1.3); Eosinophils % 0.6 % (0-4.4); Hematocrit 41.7 % (36.0-45.0); Hemoglobin 13.7 g/dL (12.0-15.0); Lymphocytes % 18.1 % (15.3-44.8); MCH 30.8 pg (27.0-35.0); MCHC 32.9 g/dL (32.0-36.0); MCV 93.8 fL (80-100); MPV 11.1 fL (7.6-11.3); Neutrophils % 74.9 % (41.7-73.7); Platelets 174 thou/uL (152-406); RBC Red Blood Cell Count 4.44 M/uL (3.86-4.86); Red Cell Distribution Width 12.9 % (12.1-15.2)
[2024-04-16 16:51] LABS: Specific Gravity > 1.030 (1.005-1.030)
[2024-04-16 16:51] LABS: D-Dimer 0.685 FEUug/mL (0-0.500); PT Prothrombin Time 10.9 SECONDS (9.4-12.5); Protime INR 0.97
[2024-04-16 16:53] LABS: Specific Gravity > 1.030 (1.005-1.030); Sqamous Epithelial <5 /HPF (None Seen); Urine Bacteria None Seen /HPF (<20); Urine Bilirubin NEGATIVE (Negative); Urine Blood Negative (Negative); Urine Clarity Clear (Clear); Urine Color Light-Yellow (Yellow); Urine Culture Reflex Order NOT NEEDED; Urine Glucose 4+ (Negative); Urine Ketones TRACE (Negative); Urine Microscopic Reflex YN ORDER UMIC; Urine Mucus 1+ /HPF (None Seen); Urine Nitrite NEGATIVE (Negative); Urine Protein TRACE (Negative); Urine RBC <5 /HPF (None Seen); Urine Urobilinogen Normal (Normal); Urine WBC <5 /HPF (<5)
[2024-04-16 17:05] LABS: Albumin 3.3 g/dL (3.4-5.0); Albumin/Globulin Ratio 0.9 (1.1-1.8); Anion Gap 8.8 mEq/L (5.0-15.0); Bilirubin Direct 0.2 mg/dL (0-0.2); Bilirubin Indirect, Calculated 0.3 mg/dL (0.2-0.8); Bilirubin Total 0.5 mg/dL (0.2-1.0); Globulin 3.7 g/dL (2.3-3.5); Magnesium 1.8 mg/dL (1.6-2.4); Potassium 3.8 mEq/L (3.5-5.1); Troponin High Sensitivity 3.6 pg/mL (<58.9)
[2024-04-16] MEDS ORDERED: NA CHLORIDE 0.9% 1,000 ML ONE (17:14)
--- NOTE | 2024-04-16 17:41 | RAD REPORT ---
EXAMINATION: ONE VIEW CHEST XR CLINICAL INDICATION: Female, 34 years old.,CHEST PAIN TECHNIQUE: Frontal chest projection is submitted. Examination is limited by patient positioning and t echnique. COMPARISON: 07/22/2023 FINDINGS: Superimposition of soft tissues is somewhat limits evaluation. The lungs are well inflated and clear. No pneumothorax or sizable effusion. The heart is normal in size. Mediastinal contours are unremarkable. IMPRESSION: No acute intrathoracic abnormalities.
--- NOTE | 2024-04-16 18:52 | RAD REPORT ---
EXAM: CT Chest Angio TECHNIQUE: CT angiogram of the chest was performed following intravenous contrast administration, inc luding sagittal and coronal as well as maximum intensity projection reformats. One or more of the following dose reduction techniques were used: Automated exposure control, adjustment of the mA and k V according to patient size, and iterative reconstruction. Unless otherwise specified, incidental findings do not require dedicated imaging follow-up. INDICATION: [facility] MAIN na CHEST PAIN Bed Name: 15 COMPARISON: 12/07/2010. FINDINGS: LINES/TUBES: None. PULMONARY ARTERIES: Main pulmonary arteries are normal in caliber. No filling defects within the pul monary arteries to suggest pulmonary embolus. LUNGS AND AIRWAYS: The lungs and central airways are normal without focal abnormality. Subpleural lef t lower lobe 6 mm nodule is stable. PLEURA: No effusion or pneumothorax. HEART AND MEDIASTINUM: The visualized thyroid gland is normal. No mediastinal, hilar, or axillary lym phadenopathy. Heart is unremarkable. No pericardial effusion. SOFT TISSUES AND BONES: No acute osseous abnormality. No significant soft tissue finding. UPPER ABDOMEN: Unremarkable. IMPRESSION: No evidence of acute central pulmonary emboli. No suspicious intrathoracic findings..
--- NOTE | 2024-04-16 19:06 | ER ---
Nurse's Notes [facility] Name: Lilibeth Sharif Age: 34 yrs Sex: Female : 1990 Arrival Date: 04/16/2024 Time: 16:17 Bed 15 Private MD: Diagnosis: Chest pain on breathing;Chest pain, unspecified;Tachycardia, unspecified;Type 1 diabetes mellitus with hyperglycemia Presentation: 04/16 16:21 Chief complaint: Patient states: WOKE UP WITH CHEST PAIN THAT WAS INTERMITTENT AND NOW db IS CONSISTENT. HX OF SVT. STATES STARTED VOMITING 30 MIN AGO. Coronavirus screen: Client denies travel out of the [place] in the last 14 days. At this time, the client does not indicate any symptoms associated with coronavirus-19. Ebola Screen: Patient negative for fever greater than or equal to 101.5 degrees Fahrenheit, and additional compatible Ebola Virus Disease symptoms Patient denies exposure to infectious person. Patient denies travel to an Ebola-affected area in the 21 days before illness onset. No symptoms or risks identified at this time. Initial Sepsis Screen: Does the patient meet any 2 criteria? No. Patient's initial sepsis screen is negative. Does the patient have a suspected source of infection? No. Patient's initial sepsis screen is negative. Risk Assessment: Do you want to hurt yourself or someone else? Patient reports no desire to harm self or others. 16:21 Method Of Arrival: Ambulatory db 16:21 Acuity: JAMISON 2 db 16:22 Onset of symptoms was April 16, 2024. db Triage Assessment: 16:21 General: Appears in no apparent distress. uncomfortable, Behavior is calm, cooperative. db Pain: Complains of pain in chest. Neuro: Level of Consciousness is awake, alert, obeys commands, Oriented to person, place, time, situation. Cardiovascular: Reports chest pain. Respiratory: Airway is patent Respiratory effort is even, unlabored, Respiratory pattern is regular, symmetrical. 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 - Infectious Disease History:: Denies. - Social history:: Smoking status: Patient denies any tobacco usage or history of. - Family history:: not pertinent. Screenin:25 [facility] ED Fall Risk Assessment (Adult) History of falling in the last 3 months, rs5 including since admission No falls in past 3 months (0 pts) Confusion or Disorientation No (0 pts) Intoxicated or Sedated No (0 pts) Impaired Gait No (0 pts) Mobility Assist Device Used No (0 pt) Altered Elimination No (0 pt) Score/Fall Risk Level 0 - 2 = Low Risk Oriented to surroundings, Maintained a safe environment. Abuse screen: Denies threats or abuse. Nutritional screening: No deficits noted. 16:25 Tuberculosis screening: No symptoms or risk factors identified. rs5 Assessment: 16:25 General: Appears in no apparent distress. uncomfortable, Behavior is calm, cooperative. rs5 Pain: Complains of pain in chest Pain does not radiate. Pain currently is 3 out of 10 on a pain scale. Quality of pain is described as aching, Pain began 1 day ago. Neuro: Level of Consciousness is awake, alert, obeys commands, Oriented to person, place, time, situation. Cardiovascular: Patient's skin is warm and dry. Respiratory: Airway is patent Respiratory effort is even, unlabored, Respiratory pattern is regular, symmetrical. GI: Abdomen is round non-distended, Abd is soft and non tender X 4 quads. : No signs and/or symptoms were reported regarding the genitourinary system. EENT: No signs and/or symptoms were reported regarding the EENT system. Derm: Skin is intact, Skin is pink, warm \T\ dry. Musculoskeletal: Range of motion: intact in all extremities. 17:50 Reassessment: Patient and/or family updated on plan of care and expected duration. Pain rs5 level reassessed. Patient is alert, oriented x 3, equal unlabored respirations, skin warm/dry/pink. 18:48 Reassessment: Patient and/or family updated on plan of care and expected duration. Pain rs5 level reassessed. Patient is alert, oriented x 3, equal unlabored respirations, skin warm/dry/pink. Vital Signs: 16:21 BP 119 / 81; Pulse 110; Resp 18; Temp 97.5; Pulse Ox 100% ; Weight 79.38 kg; Height 5 db ft. 3 in. ; Pain 7/10; 16:45 BP 123 / 91; Pulse 84; Resp 17; Pulse Ox 99% on R/A; rs5 19:08 BP 118 / 80; Pulse 90; Resp 18; Pulse Ox 100% on R/A; Pain 0/10; rg5 16:21 Body Mass Index 31.00 (79.38 kg, 160.02 cm) db 16:21 Pain Scale: Adult db 19:08 Pain Scale: Adult rg5 ED Course: 16:18 Patient arrived in ED. mr 16:20 Den Estrada MD is Attending Physician. michel 16:21 Arm band placed on Patient placed in an exam room. db 16:22 Triage completed. db 16:25 Patient has correct armband on for positive identification. Placed in gown. Bed in low rs5 position. Call light in reach. Side rails up X2. Client placed on continuous cardiac and pulse oximetry monitoring. NIBP monitoring applied. 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 Pulse ox on. 16:30 Martin Frederick, RN is Primary Nurse. rs5 16:33 Inserted saline lock: 20 gauge in right antecubital area, using aseptic technique. rs5 Blood collected. Flushed with 10 mL NS. Patient maintains SpO2 saturation greater than 95% on room air. 17:08 XRAY Chest (1 view) In Process Unspecified. EDMS 17:52 No provider procedures requiring assistance completed. rs5 17:55 US Extremity Venous W Compression Estuardo: lower In Process Unspecified. EDMS 18:02 CT Chest Angio In Process Unspecified. EDMS 19:05 Francisco J Lovell MD is Referral Physician. [facility] 19:26 Provided Education on: post er care. rg5 19:26 IV discontinued. rg5 Administered Medications: 16:46 Drug: Aspirin PO Chewable Tablet 162 mg PO once Route: PO; rs5 17:53 Follow up: Response: No adverse reaction rs5 18:48 Follow up: Response: No adverse reaction rs5 16:46 Drug: NS 0.9% IV 500 ml IV at bolus once; to be given as a bolus over 30 minutes Route: rs5 IV; Rate: bolus; Site: right antecubital; 17:22 Follow up: Response: No adverse reaction; IV Status: Completed infusion; IV Intake: rs5 500ml 17:10 Drug: NS 0.9% IV 1000 ml IV at 1000 ml once; to be given as a bolus over 60 minutes rs5 Route: IV; Rate: 1000 ml; Site: right antecubital; 19:00 Follow up: IV Status: Completed infusion; IV Intake: 1000ml rg5 Medication: 17:52 VIS not applicable for this client. rs5 Intake: 17:22 IV: 500ml; Total: 500ml. rs5 19:00 IV: 1000ml; Total: 1500ml. rg5 Outcome: 19:05 Discharge ordered by . michel 19:27 Discharged to home ambulatory, rg5 19:27 Condition: stable 19:27 Instructed on discharge instructions, follow up and referral plans. Demonstrated understanding of instructions, follow-up care, medications, Prescriptions given X 1, 19:27 Patient left the ED. rg5 Signatures: Dispatcher [employer] EDMS Den Estrada MD MD cha Rivera, Mary, Reg Reg mr Rowan Beaulieu, RN RN Martin Hernandez, RHONDA RN rs5 Elliot Trevizo, RHONDA RN rg5 Corrections: (The following items were deleted from the chart) 16:23 16:21 Pulse 110bpm; Resp 18bpm; Pulse Ox 100%; Temp 97.5F; 79.38 kg; Height 5 ft. 3 db in.; BMI: 31.0; Pain 7/10, Adult; db
--- NOTE | 2024-04-16 19:06 | EDPHYS ---
Physician Documentation [facility] Name: Lilibeth Sharif Age: 34 yrs Sex: Female : 1990 Arrival Date: 04/16/2024 Time: 16:17 Bed 15 Private MD: ED Physician Den Estrada HPI: 04/16 16:40 This 34 yrs old Female presents to ER via Ambulatory with complaints of Chest michel Pain. 16:40 The patient or guardian reports chest pain that is located primarily in the substernal michel area. The pain does not radiate. Associated signs and symptoms: The patient has no apparent associated signs or symptoms. The chest pain is described as sharp. Duration: The patient or guardian reports multiple episodes, that wax and wane. Modifying factors: The symptoms are alleviated by remaining still, the symptoms are aggravated by deep breath. Severity of pain: At its worst the pain was mild in the emergency department the pain is unchanged. The patient has experienced similar episodes in the past, several times. 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 - Infectious Disease History:: Denies. - Social history:: Smoking status: Patient denies any tobacco usage or history of. - Family history:: not pertinent. ROS: 16:40 Constitutional: Negative for fever, chills, and weight loss, Eyes: Negative for injury, michel pain, redness, and discharge, ENT: Negative for injury, pain, and discharge, Neck: Negative for injury, pain, and swelling, Respiratory: Negative for shortness of breath, cough, wheezing, and pleuritic chest pain, Abdomen/GI: Negative for abdominal pain, nausea, vomiting, diarrhea, and constipation, Back: Negative for injury and pain, : Negative for injury, bleeding, discharge, and swelling, MS/Extremity: Negative for injury and deformity, Skin: Negative for injury, rash, and discoloration, Neuro: Negative for headache, weakness, numbness, tingling, and seizure, Psych: Negative for depression, anxiety, suicide ideation, homicidal ideation, and hallucinations, Allergy/Immunology: Negative for hives, rash, and allergies, Endocrine: Negative for neck swelling, polydipsia, polyuria, polyphagia, and marked weight changes, Hematologic/Lymphatic: Negative for swollen nodes, abnormal bleeding, and unusual bruising, 16:40 Cardiovascular: Positive for chest pain, Exam: 16:40 Constitutional: This is a well developed, well nourished patient who is awake, alert, michel and in no acute distress. Head/Face: Normocephalic, atraumatic. Eyes: Pupils equal round and reactive to light, extra-ocular motions intact. Lids and lashes normal. Conjunctiva and sclera are non-icteric and not injected. Cornea within normal limits. Periorbital areas with no swelling, redness, or edema. ENT: Nares patent. No nasal discharge, no septal abnormalities noted. Tympanic membranes are normal and external auditory canals are clear. Oropharynx with no redness, swelling, or masses, exudates, or evidence of obstruction, uvula midline. Mucous membranes moist. Neck: Trachea midline, no thyromegaly or masses palpated, and no cervical lymphadenopathy. Supple, full range of motion without nuchal rigidity, or vertebral point tenderness. No Meningismus. Chest/axilla: Normal chest wall appearance and motion. Nontender with no deformity. No lesions are appreciated. Cardiovascular: Regular rate and rhythm with a normal S1 and S2. No gallops, murmurs, or rubs. Normal PMI, no JVD. No pulse deficits. Respiratory: Lungs have equal breath sounds bilaterally, clear to auscultation and percussion. No rales, rhonchi or wheezes noted. No increased work of breathing, no retractions or nasal flaring. Abdomen/GI: Soft, non-tender, with normal bowel sounds. No distension or tympany. No guarding or rebound. No evidence of tenderness throughout. Back: No spinal tenderness. No costovertebral tenderness. Full range of motion. Skin: Warm, dry with normal turgor. Normal color with no rashes, no lesions, and no evidence of cellulitis. MS/ Extremity: Pulses equal, no cyanosis. Neurovascular intact. Full, normal range of motion., bilateral aka Neuro: Awake and alert, GCS 15, oriented to person, place, time, and situation. Cranial nerves II-XII grossly intact. Motor strength 5/5 in all extremities. Sensory grossly intact. Cerebellar exam normal. Normal gait. Psych: Awake, alert, with orientation to person, place and time. Behavior, mood, and affect are within normal limits. 16:40 ECG was reviewed by the Attending Physician. Vital Signs: 16:21 BP 119 / 81; Pulse 110; Resp 18; Temp 97.5; Pulse Ox 100% ; Weight 79.38 kg; Height 5 db ft. 3 in. ; Pain 7/10; 16:45 BP 123 / 91; Pulse 84; Resp 17; Pulse Ox 99% on R/A; rs5 19:08 BP 118 / 80; Pulse 90; Resp 18; Pulse Ox 100% on R/A; Pain 0/10; rg5 16:21 Body Mass Index 31.00 (79.38 kg, 160.02 cm) db 16:21 Pain Scale: Adult db 19:08 Pain Scale: Adult rg5 MDM: 16:20 Medical Screening Exam initiated michel 16:46 Differential diagnosis: anxiety, coronary artery disease chest wall pain, pericarditis, michel pleurisy, pneumonia, pneumothorax, pulmonary embolus, stable angina, thoracic aortic disection, unstable angina. HEART Score: History: Slightly Suspicious (0), ECG: Non specific repolarization disturbance / LBTB / PM (1), Age: < or = 45 years (0), Risk Factors: > or = 3 Risk factors for atherosclerotic disease (2), [Hypertension] [DM] [+ Family HX] Troponin: < or = 1 x Normal Limit (0). BIJAN Risk Score: 1 - Three or more CAD risk factors, [Family Hx], [HTN], [DM]. Data reviewed: vital signs, nurses notes, lab test result(s), EKG, radiologic studies, plain films. Consideration of Admission/Observation Escalation of care including admission/observation considered. I considered the following discharge prescriptions or medication management in the emergency department Medications were administered in the Emergency Department. See 16:21 Order name: Basic Metabolic Panel; Complete Time: 17:25 [facility] 04/16 16:21 Order name: CBC with Diff; Complete Time: 17:25 04/16 16:21 Order name: D-Dimer; Complete Time: 17:25 04/16 16:21 Order name: LFT's; Complete Time: 17:25 04/16 16:21 Order name: Magnesium; Complete Time: 17:25 04/16 16:21 Order name: NT PRO-BNP; Complete Time: 17:25 04/16 16:21 Order name: PT-INR; Complete Time: 17:25 04/16 16:21 Order name: Troponin HS; Complete Time: 17:25 04/16 16:21 Order name: Urinalysis w/ reflexes; Complete Time: 17:25 04/16 16:21 Order name: PREGU; Complete Time: 17:25 04/16 16:21 Order name: Lipase; Complete Time: 17:25 04/16 16:21 Order name: XRAY Chest (1 view); Complete Time: 17:49 04/16 16:40 Order name: CT Chest Angio; Complete Time: 19:05 04/16 17:28 Order name: US Extremity Venous W Compression Estuardo: lower 04/16 16:21 Order name: EKG; Complete Time: 16:22 04/16 16:21 Order name: Cardiac monitoring; Complete Time: 16:46 [facility] 04/16 16:21 Order name: EKG - Nurse/Tech; Complete Time: 16:46 04/16 16:21 Order name: IV Saline Lock; Complete Time: 16:46 04/16 16:21 Order name: Labs collected and sent; Complete Time: 16:46 04/16 16:21 Order name: O2 Per Protocol; Complete Time: 16:46 michel 04/16 16:21 Order name: O2 Sat Monitoring; Complete Time: 16:46 [facility] EC:40 Rate is 103 beats/min. Rhythm is regular. QRS [place] is Normal. IA interval is normal. [facility] QRS interval is normal. QT interval is normal. No Q waves. T waves are Normal. No ST changes noted. Clinical impression: Sinus tachycardia and No evidence of ischemia. Interpreted by me. Reviewed by me. Administered Medications: 16:46 Drug: Aspirin PO Chewable Tablet 162 mg PO once Route: PO; rs5 17:53 Follow up: Response: No adverse reaction rs5 18:48 Follow up: Response: No adverse reaction rs5 16:46 Drug: NS 0.9% IV 500 ml IV at bolus once; to be given as a bolus over 30 minutes Route: rs5 IV; Rate: bolus; Site: right antecubital; 17:22 Follow up: Response: No adverse reaction; IV Status: Completed infusion; IV Intake: rs5 500ml 17:10 Drug: NS 0.9% IV 1000 ml IV at 1000 ml once; to be given as a bolus over 60 minutes rs5 Route: IV; Rate: 1000 ml; Site: right antecubital; 19:00 Follow up: IV Status: Completed infusion; IV Intake: 1000ml rg5 Disposition Summary: 04/16/24 19:05 Discharge Ordered Notes: Location: Home michel Problem: new michel Symptoms: have improved michel Condition: Stable michel Diagnosis - Chest pain on breathing michel - Chest pain, unspecified michel - Tachycardia, unspecified michel - Type 1 diabetes mellitus with hyperglycemia michel Followup: michel - With: Private Physician - When: 2 - 3 days - Reason: Recheck today's complaints, Continuance of care, Re-evaluation by your physician Followup: michel - With: Francisco J Lovell MD - When: 2 - 3 days - Reason: Recheck today's complaints, Re-evaluation by your physician Discharge Instructions: - Discharge Summary Sheet michel - Nonspecific Chest Pain, Adult michel - Costochondritis michel - Hyperglycemia michel - Nonspecific Chest Pain, Adult, [id number] michel - Diabetes Mellitus and Nutrition, Adult michel - Aspirin and Your Heart [facility] Forms: - Medication Reconciliation Form michel - Antibiotic Education michel - Prescription Opioid Use michel - Patient Portal Instructions [facility] - Leadership Thank You Letter [facility] Prescriptions: - Ibuprofen 600 mg Oral tablet - take 1 tablet ORAL route every 6 hours As needed take with food; 20 tablet; [facility] Refills: 0, Product Selection Permitted Signatures: Dispatcher [employer] Den Tabares MD MD cha Benton, Danielle, RN RN db Martin Frederick RN RN rs5 Elliot Trevizo RN rg5 Corrections: (The following items were deleted from the chart) 16:22 16:22 BASIC METABOLIC PANEL+C.LAB.BRZ ordered. EDMS EDMS 16:22 16:22 CBC+H.LAB.BRZ ordered. EDMS EDMS 16:22 16:22 D-DIMER+COAG.LAB.BRZ ordered. EDMS EDMS 16:22 16:22 HEPATIC FUNCTION+C.LAB.BRZ ordered. EDMS EDMS 16:22 16:22 MAGNESIUM+C.LAB.BRZ ordered. EDMS EDMS 16:22 16:22 PROBNP+C.LAB.BRZ ordered. EDMS EDMS 16:22 16:22 PROTIME (+INR)+COAG.LAB.BRZ ordered. EDMS EDMS 16:22 16:22 Troponin High Sensitivity+C.LAB.BRZ ordered. EDMS EDMS 16:22 16:22 Urinalysis+U.LAB.BRZ ordered. EDMS EDMS 16:22 16:22 Test, Urine+UC.LAB.BRZ ordered. EDMS EDMS 16:22 16:22 LIPASE+C.LAB.BRZ ordered. EDMS EDMS 17:28 17:28 Extrem Venous W Compression Estuardo+US.RAD.BRZ ordered. EDMS EDMS
--- NOTE | 2024-04-16 19:08 | RAD REPORT ---
EXAMINATION: US Extrem Venous W Compress Estuardo CLINICAL INDICATION: [facility] MAIN PAIN Bed Name: 15 lower N TECHNIQUE: Complete bilateral duplex sonography of the BILATERAL lower extremity veins was performed. The examination included compression for vein patency, color Doppler imaging and flow augmentation in response to distal compression of the distal external iliac, common femoral, femoral, popliteal, t ibial, and great and small saphenous veins. COMPARISON: No prior exam. FINDINGS: Duplex sonography testing of the veins of the BILATERAL lower extremity was performed. Color flow mateo ging shows all veins to be compressible with [id number] color filling. Pulsatile and phasic flow is present within all lower extremity deep and superficial veins examined. IMPRESSION: There is no deep vein or superficial vein thrombosis.
[2024-04-16 19:51] VITALS: TEMP 97.5
[2024-04-16 19:53] VITALS: BP 118/80; O2SAT 100
--- NOTE | 2024-04-19 11:18 | EKG ---
Test Date: 2024-04-16 Test Time: 16:28:26 [employer] Operator: KAREN MEASUREMENT RESULTS: Intervals: Rate: 103 NV: 124 QRSD: 82 QT: 340 QTc: 445 [place]: P: 60 NV: 124 QRS: 90 T: 42 INTERPRETIVE STATEMENTS: Sinus tachycardia Rightward axis Borderline ECG Compared to ECG 07/22/2023 14:16:54 Right-axis deviation now present Sinus rhythm no longer present Myocardial infarct finding no longer present Electronically Signed On 04-19-24 11:13:[address] ASSOCIATE JUSTICE by Bulmaro Sal
== END 2024-04-16 19:27 | disposition home or self-care (01) ==
LOC: ER 16:17
DX: R07.1 Chest pain on breathing (principal); R07.9 Chest pain, unspecified; R00.0 Tachycardia, unspecified; E10.65 Type 1 diabetes mellitus with hyperglycemia
CPT/HCPCS: 96361; 93005; 85025; 81001; 80048; 36415; 83735; 81025; 85610; 85379; 80076; 84484; 83690; 83880; 71275; 71045; 93970; 96360; 99285; Q9967; J7040; J7030

== ENCOUNTER 2024-07-28 11:51 | Emergency (ER) | payer BC ==
--- OUTSIDE RECORDS SUMMARY | 2024-07-28 11:58 | XMS REPORT | Continuity of Care Document ---
Author Name Unknown Address [address] [place] [address] [facility] Address [address] [place] [address] Care Team Providers Care Consulting Psychologist Name Role Phone Pcp, Patient Does Not Have A Primary Care Physic chely Leyda Plata RN Attending Clinician Unavailable Nurse-Adc, [facility] Imm Attending Clinician Unavailab Yosi Scherer MD Attending Clinician [phone] YOSI CHAU Attending Clinician Unavailable [email or web address]_WAGDNU Attending Clinician Unavailable Only, Ang Db Test Attending Clinician Unavailabl e Unknown, Attending Attending Clinician Unavailab Monique Erickson Attending Clinician [phone] MONIQUE GARCIA Attending Clinician Unavailable BRANDYN PRADO Attending Clinician Unavaila ble YURIDIA RARIOLA Attending Clinician Unavailable Doctor Unassigned, [place] Attending Clinician U navailable Pob, [facility] Main Attending Clinician Unavailleonidas Luong MD, Gabriela Attending Clinician [phone] GABRIELA LUONG Attending Clinician UnavailMARSHA Brandt Attending Clinician Unavailable Anedylon LICENSED INSURANCE SALES AGENT, Yuridia Attending Clinician + [phone] Marsha Calvo Attending Clinician [phone] Glo_RIGO Attending Clinician Unavailable Jose Roberto Oreilly Attending Clinician [phone] JOSE ROBERTO PRADO Attending Clinician Unavailable CAMRON PARR Attending Clinician Unavailable Camron Parr PA-C Attending Clinician [phone] Lab, Ang - Db Attending Clinician Unavailable Bradly Navarro MD Attending Clinician + [phone] Jesu Kiser MD Attending Clinician [phone] JESU KISER Attending Clinician Unavaila ble Only, Adc Test Attending Clinician Unavailable Mary Hernandez RN Attending Clinician Unavailab Sukhdev Goyal Attending Clinician [phone] Zakia Barrera MD Attending Clinician [phone] Team, [facility] Attending Clinicia n Unavailable Lab, Adc Fam Pob I Attending Clinician Unavailab MELANIA Camacho Attending Clinician Unavailable Provider, [facility] Attending Clinician Un available SUKHDEV BENDER Attending Clinician Unavailable Mikki Scott Attending Clinician Unavailable Jeanine Palm Attending Clinician Unavaila ANG Mckinney Attending Clinician Unavailable 2, [facility] Attending Clinician Unavailable Ang Schilling MD Attending Clinician [phone] NONA ROMERO Attending Clinician Unavailable ZAKIA BARRERA Attending Clinician Unavailable Tito ELLIS, Den Attending Clinician Unavailab le Pob1, Acute [facility] Clinic Attending Clinician Unav Galo Sierra MD Attending Clinician [phone] GALO BAILEY Attending Clinician Unavail able RADIOLOGY Attending Clinician Unavailable 1, Ad[facility] Lab Attending Clinician Unavailable Bui_Q_WAGDNU Admitting Clinician Unavailable Erlinda Admitting Clinician Unavailable CAMRON PARR Admitting Clinician Unavailable RIYA NAILS Admitting Clinician Unavailable Physician, No Primary or Family Admitting Clinic chely Unavailable ANGÉLICA EVANS Admitting Clinician Unavailable Payers Payer Name Policy Type Policy Number Effective Date Expirati on Date Source [place] [id number] 2020 00:00:00 Problems Condition Name Condition Details Condition Category Status Onset Date Resolution Date Last Treatment Date Treating Clinician Comments Source Morbid obesity Morbid Obesity Problem Active 3-18 00:00: 00 [facility] Bronchitis Bronchitis Disease Active 9-06 00:00: 00 [facility] Wheezing Wheezing Disease Active 9-06 00:00: 00 [facility] Cough Cough Disease Active 9-06 00:00: 00 [facility] History of pancreatit is History of pancreatit is Disease Active 6-15 00:00: 00 [facility] Type 1 diabetes mellitus Type 1 Diabetes Mellitus Problem Active 3-05 00:00: 00 [facility] Dizziness Dizziness Disease Active 2-04 00:00: 00 [facility] Dyspnea on exertion Dyspnea on exertion Disease Active 2-04 00:00: 00 [facility] Fatigue, unspecifie d type Fatigue, unspecifie d type Disease Active 2-04 00:00: 00 [facility] Clammy skin Clammy skin Disease Active 2-04 00:00: 00 [facility] Rhinorrhea Rhinorrhea Disease Active 2-04 00:00: 00 [facility] Viral syndrome Viral syndrome Disease Active 2-04 00:00: 00 [facility] Obesity Obesity Problem Active 6-23 00:00: 00 [facility] Clinical finding Clinical Finding Problem Active 7-01 00:00: 00 [facility] Finding related to sleep Finding Related to Sleep Problem Active 30 00:00: 00 [facility] Anxiety and depression Anxiety and depression Disease Active 114 00:00: 00 [facility] Psoriasis Psoriasis Disease Active 2017-04 00:00: 00 [facility] Overweight Overweight Disease Active 10-10 00:00: 00 [facility] Iron deficiency anemia due to chronic blood loss Iron deficiency anemia due to chronic blood loss Disease Active 09-15 00:00: 00 [facility] Hypoglycem ia Hypoglycem ia Problem Active 2016-04 00:00: 00 [facility] Vitamin D deficiency Vitamin D Deficiency Problem Active 2016-04 00:00: 00 [facility] Clinical finding Clinical Finding Problem Active 2016-04 00:00: 00 [facility] Clinical finding Clinical Finding Problem Active 2016-04 00:00: 00 [facility] Anemia Anemia Disease Active 2016-04 00:00: 00 [facility] 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 Dr. Pendleton ([facility]), followed q6mos [facility] Diabetic keto-acido sis Diabetic keto-acido sis Disease Active 01-03 00:00: 00 [facility] Sinus tachycardi a Sinus tachycardi a Disease Active 01-02 00:00: 00 [facility] Insomnia Insomnia Disease Active 07-15 00:00: 00 [facility] Vitamin D deficiency Vitamin D deficiency Disease Active 12-07 00:00: 00 Overview: Formattin g of this note might be different from the original. ICD10 Diagnosis Term Ambulatory Services Representative Utility [facility] Obesity Obesity Disease Active 08-20 00:00: 00 Overview: Formattin g of this note might be different from the original. ICD10 Diagnosis Term Ambulatory Services Representative Utility [facility] Hypoglycem ia Hypoglycem ia Disease Active 06-13 00:00: 00 Overview: Formattin g of this note might be different from the original. 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 Claudy wolf [facility] Diabetes mellitus Diabetes mellitus Disease Active 06-13 00:00: 00 Overview: Formattin g of this note might be different from the original. 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 1 diabetes mellitus Type 1 diabetes mellitus Disease Active 12-12 00:00: 00 [facility] Sinusitis Sinusitis Problem Active [facility] Posterior rhinorrhea Posterior Rhinorrhea Problem Active [facility] Nasal obstructio n Nasal Obstructio n Problem Active [facility] Headache Headache Problem Active [facility] Fever Fever Disease Resolve d 07-09 00:00: 00 2019-05-04 00:00:00 2019-05-04 17:47:43 [facility] Diabetic acidosis Diabetic acidosis Disease Resolve d 01-02 00:00: 00 2019-05-04 00:00:00 2019-05-04 17:47:46 [facility] Acidosis Acidosis Disease Resolve d 01-02 00:00: 00 2015-01-03 00:00:00 2015-01-03 08:57:44 [facility] Depression Depression Disease Resolve d 07-15 00:00: 00 2015-01-03 00:00:00 2015-01-03 08:57:13 [facility] Allergic rhinitis Allergic rhinitis Disease Resolve d 07-15 00:00: 00 2015-01-03 00:00:00 2021-11-04 00:35:15 [facility] Abnormal LFTs Abnormal LFTs Disease Resolve d 3-27 00:00: 00 2015-01-03 00:00:00 2021-11-04 00:35:15 [facility] Elevated LFTs Elevated LFTs Disease Resolve d 5- 00:00: 00 2015-01-02 00:00:00 2015-01-02 12:23:16 [facility] Morbidly obese Morbidly obese Disease Resolve d 2011-04 0 00:00: 00 2012-08-20 00:00:00 2012-08-20 19:53:29 [facility] Allergies, Adverse Reactions, Alerts Allergy Name Allergy Type Status Severity Reaction(s) Onset Date Inactive Date Treating Clinician Comments Source DULAGLUT KAREN DRUG INGREDI Active Unknown-Cmnt 2-15 00:00: 00 [facility] FLUCONAZ OLE DRUG INGREDI Active Hives 2-15 00:00: 00 [facility] Dulaglut karen Drug Allergy Active Unknown - See comments 2-15 00:00: 00 [facility] Fluconaz ole Drug Allergy Active Hives 2-15 00:00: 00 [facility] Sulfa (Sulfona mide Antibiot ics) DA Active U 2019-04 00:00: 00 [facility] morphine DA Active U 2019-04 00:00: 00 [facility] hydrocod one DA Active U 2019-04 00:00: 00 [facility] fluconaz ole DA Active U 2019-04 00:00: 00 [facility] tramadol DA Active U 2019-04 00:00: 00 [facility] Sulfa (Sulfona mide Antibiot ics) DA Active U ITCHING 2019-04 00:00: 00 [facility] morphine DA Active U SHORTNESS OF BREATH 2019-04 00:00: 00 [facility] hydrocod one DA Active U ITCHING 2019-04 00:00: 00 [facility] fluconaz ole DA Active U HIVES 2019-04 00:00: 00 [facility] tramadol DA Active U ITCHY 2019-04 00:00: 00 [facility] adhesive DA Active MO 2016-0 20 00:00: 00 [facility] adhesive DA Active [place] HIVES 0 20 00:00: 00 [facility] Sulfa (Sulfona mide Antibiot ics) DA Active [place] 0 18 00:00: 00 [facility] morphine DA Active SV 0 18 00:00: 00 [facility] [place] [address] 18 00:00: 00 [facility] tramadol DA Active [place] 0 18 00:00: 00 [facility] Sulfa (Sulfona mide Antibiot ics) DA Active [place] ITCH[place] 0 18 00:00: 00 [facility] morphine DA Active SV SHORTNESS OF BREATH 0 18 00:00: 00 [facility] hydrocod one DA Active [place] ITCHING 0 18 00:00: 00 [facility] tramadol DA Active [place] ITCHING 0 18 00:00: 00 [facility] Sulfa (Sulfona mide Antibiot ics) Propensi ty to adverse reaction s Active Itching 0 07-15 00:00: 00 [facility] SULFA (SULFONA MIDE ANTIBIOT ICS) Drug Class Active ITCHING 0 327 00:00: 00 [facility] Adhesive Propensi ty to adverse reaction s Active Hives 0 227 00:00: 00 [facility] ADHESIVE Drug Class Active Hives 0 227 00:00: 00 [facility] Adhesive Propensi ty to adverse reaction s Active Hives 0 227 00:00: 00 [facility] TRAMADOL DRUG INGREDI Active ITCHING 05-28 00:00: 00 [facility] Tramadol Propensi ty to adverse reaction s Active Itching 05-28 00:00: 00 [facility] HYDROCOD ONE DRUG INGREDI Active ITCHING 09-18 00:00: 00 [facility] Hydrocod one Drug Allergy Active Hives 09-18 00:00: 00 [facility] Hydrocod one Propensi ty to adverse reaction s Active Itching 09-18 00:00: 00 [facility] MORPHINE DRUG INGREDI Active ITCHING 12-12 00:00: 00 [facility] Morphine Propensi ty to adverse reaction s Active Shortness of Breath 12-12 00:00: 00 [facility] Hydrocod one Allergy to substanc e [facility] MORPHINE SULFATE Allergy to substanc e Active [facility] Sulfacet amide Allergy to substanc e Active Hives [facility] TRAMADOL HCL Allergy to substanc e Active [facility] Trulicit y Allergy to substanc e Active [facility] Diflucan Allergy to substanc e Active Hives [facility] Morphine Allergy to substanc e Active [facility] Tramadol Allergy to substanc e Active [facility] Social History Social Habit Start Date Stop Date Quantity Comments Source Sexual orientation [facility] History SDOH Alcohol Frequency [facility] History SDOH Alcohol Std Drinks [facility] History SDOH Alcohol Binge [facility] Exposure to SARS-CoV-2 (event) 2022-08-24 00:00:00 2022-09-03 14:30:00 Not sure [facility] History of Social function 2022-09-03 00:00:00 2022-09-03 00:00:00 [facility] Alcohol intake 2022-09-03 00:00:00 2022-09-03 00:00:00 .14 /d [facility] Tobacco use and exposure 2021-12-25 00:00:00 2021-12-25 00:00:00 Smokeless tobacco non-user [facility] Alcohol Comment 2014-07-15 00:00:00 2014-07-15 00:00:00 social [facility] Alcoholic beverage intake 2012-02-12 00:00:00 2012-02-12 00:00:00 Current non-drinker of alcohol (finding) [facility] Sex assigned at 1990 00:00:00 1990 00:00:00 [facility] Smoking Status Start Date Stop Date Source Never Smoker [facility] Medications Ordered Medication Name Filled Medication Name Start Date Stop Date Current Medication? Ordering Clinician Indication Dosage Frequency Signature (SIG) Comments Components Source buPROPion SR (WELLBUTRIN SR) 150 mg SR tablet 09-03 00:00: 00 Yes [id number] 150mg Take 1 tablet by mouth in the morning and 1 tablet in the evening. [facility] metoprolol succinate XL 50 mg 24 hr tablet 09-03 00:00: 00 Yes [id number] 25mg Take 0.5 tablets by mouth in the morning. [facility] meloxicam 7.5 mg tablet 06-05 00:00: 00 09-03 00:00 :00 No [id number] 7.5mg Take 1 tablet by mouth once daily as needed (back pain). [facility] ketorolac (TORADOL) injection 30 mg 05-30 00:00: 00 05-29 23:15 :00 No [id number] 30mg [facility] lipase-prot ease-amylas e (ZENPEP) 15,000-47,0 00 -63,000 unit CpDR 05-29 16:44: 12 Yes Take by mouth. [facility] albuterol 90 mcg/actuati on inhaler 12-25 00:00: 00 Yes [id number] 2{puff} Inhale 2 Puffs every 6 (six) hours as needed for Wheezing or Shortness of Breath. [facility] AZITHROMYCI N 250 mg tablet 12-25 00:00: 00 2023- 05-16 00:00 :00 No [id number] 500MG on day 1, then 250mg days 2-5 [facility] benzonatate 200 mg capsule 9-06 00:00: 00 01-02 04:59 :00 No [id number] 200mg Take 1 capsule by mouth 3 (three) times daily as needed for Cough for up to 7 days. [facility] pantoprazol e 40 mg EC tablet 6-06 00:00: 00 Yes [facility] metoprolol succinate XL 50 mg 24 hr tablet 3-17 00:00: 00 09-03 00:00 :00 No 12.5mg 12.5 mg. [facility] WEGOVY 2.4 mg/0.75 mL PnIj SC injection 2- 00:00: 00 09-03 00:00 :00 No [facility] T:SLIM X2 Crtg 8-05 00:00: 00 Yes [facility] TRUSTEEL INFUSION SET 23" ISet 8-05 00:00: 00 Yes [facility] DEXCOM G6 TRANSMITTER Mell 8-05 00:00: 00 Yes [facility] DEXCOM G6 SENSOR Mell 8-05 00:00: 00 Yes [facility] LYUMJEV U-100 INSULIN 100 unit/mL Soln 7-20 00:00: 00 Yes [facility] fluticasone propionate 50 mcg/actuati on nasal spray 2-07 00:00: 00 Yes [id number] 1 spray each nostril twice a day for 5 days then daily [facility] flash glucose sensor (FREESTYLE JARET 14 DAY SENSOR) Kit -15 00:00: 00 Yes [id number] 1{each} 1 Each every 14 (fourteen) days. Use as directed with reader. [facility] amoxicillin 875 mg tablet Take 1 tablet every 12 hours by oral route with meals for 12 days. amoxicillin 875 mg tablet Take 1 tablet every 12 hours by oral route with meals for 12 days. No 1 Q12H amoxicilli n 875 mg tablet Take 1 tablet every 12 hours by oral route with meals for 12 days. [facility] cefdinir 300 mg capsule cefdinir 300 mg capsule No cefdinir 300 mg capsule [facility] Fiasp FlexTouch U-100 Insulin 100 [...] 5 mg tablet [facility] t:slim X2 subcutaneou s cartridge t:slim X2 subcutaneou s cartridge No t:slim X2 subcutaneo us cartridge [facility] TruSteel Infusion Set 23" Take 10 sets every month by miscell. route. TruSteel Infusion Set 23" Take 10 sets every month by miscell. route. No TruSteel Infusion Set 23" Take 10 sets every month by miscell. route. [facility] Baqsimi 3 mg/actuatio n nasal spray SPRAY NASALLY DIRECTED FOR EMERGENCY LOW SUGARS 30 DAYS. Baqsimi 3 mg/actuatio n nasal spray SPRAY NASALLY DIRECTED FOR EMERGENCY LOW SUGARS 30 DAYS. No Baqsimi 3 mg/actuati on nasal spray SPRAY NASALLY DIRECTED FOR EMERGENCY LOW SUGARS 30 DAYS. [facility] bupropion HCl XL [...] MOUTH ONCE A DAY IN THE MORNING. [facility] metoprolol succinate ER 25 mg tablet,exte nded release 24 hr TAKE ONE (1) TABLET(S) BY MOUTH ONCE A DAY. metoprolol succinate ER 25 mg tablet,exte nded release 24 hr TAKE ONE (1) TABLET(S) BY MOUTH ONCE A DAY. No metoprolol succinate ER 25 mg tablet,ext ended release 24 hr TAKE ONE (1) TABLET(S) BY MOUTH ONCE A DAY. [facility] mupirocin 2 % topical ointment APPLY TO AFFECTED AREA TWICE A DAY FOR 7 DAYS. mupirocin 2 % topical ointment APPLY TO AFFECTED AREA TWICE A DAY FOR 7 DAYS. No mupirocin 2 % topical ointment APPLY TO AFFECTED AREA TWICE A DAY FOR 7 DAYS. [facility] OneTouch Delica Plus Lancet 33 gauge OneTouch Delica Plus Lancet 33 gauge No OneTouch Delica Plus Lancet 33 gauge [facility] OneTouch Verio Flex Meter OneTouch Verio Flex Meter No OneTouch Verio Flex Meter [facility] OneTouch Verio test strips USE ONE (1) STRIP TO CHECK BLOOD SUGAR 5 TIMES A DAY DIRECTED. OneTouch Verio test strips USE ONE (1) STRIP TO CHECK BLOOD SUGAR 5 TIMES A DAY DIRECTED. No 1strip( s) 5xD OneTouch Verio test strips USE ONE (1) STRIP TO CHECK BLOOD SUGAR 5 TIMES A DAY DIRECTED. [facility] trazodone 50 mg tablet TAKE ONE (1) TABLET(S) BY MOUTH AT BEDTIME NEEDED. trazodone 50 mg tablet TAKE ONE (1) TABLET(S) BY MOUTH AT BEDTIME NEEDED. No trazodone 50 mg tablet TAKE ONE (1) TABLET(S) BY MOUTH AT BEDTIME NEEDED. [facility] Tresiba FlexTouch U-100 [...] SKIN IN THE MORNING IF PUMP FAILS. [facility] bupropion HCl XL 150 mg 24 hr tablet, extended release TAKE ONE (1) TABLET(S) BY MOUTH ONCE A DAY IN THE MORNING. bupropion HCl XL 150 mg 24 hr tablet, extended release TAKE ONE (1) TABLET(S) BY MOUTH ONCE A DAY IN THE MORNING. No bupropion HCl XL 150 mg 24 hr tablet, extended release TAKE ONE (1) TABLET(S) BY MOUTH ONCE A DAY IN THE MORNING. [facility] cetirizine 10 mg tablet TAKE ONE (1) TABLET(S) BY MOUTH DAILY. cetirizine 10 mg tablet TAKE ONE (1) TABLET(S) BY MOUTH DAILY. No cetirizine 10 mg tablet TAKE ONE (1) TABLET(S) BY MOUTH DAILY. [facility] clonazepam 0.5 mg tablet TAKE 1 TABLET BY MOUTH EVERY 12 HOURS NEEDED clonazepam 0.5 mg tablet TAKE 1 TABLET BY MOUTH EVERY 12 HOURS NEEDED No clonazepam 0.5 mg tablet TAKE 1 TABLET BY MOUTH EVERY 12 HOURS NEEDED [facility] Dexcom G7 Sensor device USE DIRECTED. CHANGE EVERY 10 DAYS Dexcom G7 Sensor device USE DIRECTED. CHANGE EVERY 10 DAYS No Dexcom G7 Sensor device USE DIRECTED. CHANGE EVERY 10 DAYS [facility] Humalog U-100 Insulin 100 unit/mL subcutaneou s solution GIve 100 units in pump daily Humalog U-100 Insulin 100 unit/mL subcutaneou s solution GIve 100 units in pump daily No Humalog U-100 Insulin 100 unit/mL subcutaneo us solution GIve 100 units in pump daily [facility] Ozempic 1 mg/dose (4 mg/3 mL) subcutaneou s pen injector Inject 1 mg every week by subcutaneou s route for 30 days. Ozempic 1 mg/dose (4 mg/3 mL) subcutaneou s pen injector Inject 1 mg every week by subcutaneou s route for 30 days. No 1mg Q1W Ozempic 1 mg/dose (4 mg/3 mL) subcutaneo us pen injector Inject 1 mg every week by subcutaneo us route for 30 days. [facility] e Immunizations Ordered Immunization Name Filled Immunization Name Date Status Comments Source Flu Injectable MDCK Pres-Free (FLUCELVAX) 2024-02-19 00:00:00 Completed Influenza Virus Vaccine Quad IM 3+ YRS 2021-01-19 00:00:00 Completed [facility] Influenza Virus Vaccine Quad IM 3+ YRS 2021-01-19 00:00:00 Completed [facility] Influenza Virus Vaccine Quad IM 3+ YRS 2021-01-19 00:00:00 Completed [facility] Influenza Virus Vaccine Quad IM 3+ YRS 2021-01-19 00:00:00 Completed [facility] Influenza Virus Vaccine Quad IM 3+ YRS 2021-01-19 00:00:00 Completed [facility] Influenza Virus Vaccine Quad IM 3+ YRS 2021-01-19 00:00:00 Completed [facility] Influenza Virus Vaccine Quad IM 3+ YRS 2021-01-19 00:00:00 Completed [facility] Influenza Virus Vaccine Quad IM 3+ YRS 2021-01-19 00:00:00 Completed [facility] Influenza Virus Vaccine Quad IM 3+ YRS 2021-01-19 00:00:00 Completed [facility] Influenza Virus Vaccine Quad IM 3+ YRS 2021-01-19 00:00:00 Completed [facility] Influenza Virus Vaccine Quad IM 3+ YRS 2021-01-19 00:00:00 Completed [facility] Influenza Virus Vaccine Quad IM 3+ YRS 2021-01-19 00:00:00 Completed [facility] SARS-COV-2 COVID-19 PFIZER VACCINE 2020-09-25 00:00:00 Completed [facility] SARS-COV-2 COVID-19 PFIZER VACCINE 2020-09-25 00:00:00 Completed [facility] SARS-COV-2 COVID-19 PFIZER VACCINE 2020-09-25 00:00:00 Completed [facility] SARS-COV-2 COVID-19 PFIZER VACCINE 2020-09-25 00:00:00 Completed [facility] SARS-COV-2 COVID-19 PFIZER VACCINE 2020-09-25 00:00:00 Completed [facility] SARS-COV-2 COVID-19 PFIZER VACCINE 2020-09-25 00:00:00 Completed [facility] SARS-COV-2 COVID-19 PFIZER VACCINE 2020-09-25 00:00:00 Completed [facility] SARS-COV-2 COVID-19 PFIZER VACCINE 2020-09-25 00:00:00 Completed COVID-19, mRNA, LNP-S, PF, 30 mcg/0.3 mL dose ([employer]) COVID-19, mRNA, LNP-S, PF, 30 mcg/0.3 mL dose (Pfizer-BioNTech) 2020-09-25 00:00:[address] [facility] SARS-COV-2 COVID-19 PFIZER VACCINE 2020-06-02 00:00:00 Completed [facility] SARS-COV-2 COVID-19 PFIZER VACCINE 2020-06-02 00:00:00 Completed [facility] SARS-COV-2 COVID-19 PFIZER VACCINE 2020-06-02 00:00:00 Completed [facility] SARS-COV-2 COVID-19 PFIZER VACCINE 2020-06-02 00:00:00 Completed [facility] SARS-COV-2 COVID-19 PFIZER VACCINE 2020-06-02 00:00:00 Completed [facility] SARS-COV-2 COVID-19 PFIZER VACCINE 2020-06-02 00:00:00 Completed [facility] SARS-COV-2 COVID-19 PFIZER VACCINE 2020-06-02 00:00:00 Completed [facility] SARS-COV-2 COVID-19 PFIZER VACCINE 2020-06-02 00:00:00 Completed [facility] SARS-COV-2 COVID-19 PFIZER VACCINE 2020-06-02 00:00:00 Completed [facility] SARS-COV-2 COVID-19 PFIZER VACCINE 2020-06-02 00:00:00 Completed [facility] SARS-COV-2 COVID-19 PFIZER VACCINE 2020-06-02 00:00:00 Completed [facility] SARS-COV-2 COVID-19 PFIZER VACCINE 2020-06-02 00:00:00 Completed [facility] SARS-COV-2 COVID-19 UNSPECIFIED VACCINE 2020-05-22 00:00:00 Completed [facility] SARS-COV-2 COVID-19 UNSPECIFIED VACCINE 2020-05-22 00:00:00 Completed [facility] SARS-COV-2 COVID-19 UNSPECIFIED VACCINE 2020-05-22 00:00:00 Completed [facility] SARS-COV-2 COVID-19 UNSPECIFIED VACCINE 2020-05-22 00:00:00 Completed [facility] SARS-COV-2 COVID-19 UNSPECIFIED VACCINE 2020-05-22 00:00:00 Completed [facility] SARS-COV-2 COVID-19 UNSPECIFIED VACCINE 2020-05-22 00:00:00 Completed [facility] SARS-COV-2 COVID-19 UNSPECIFIED VACCINE 2020-05-22 00:00:00 Completed [facility] SARS-COV-2 COVID-19 UNSPECIFIED VACCINE 2020-05-22 00:00:00 Completed COVID-19 (SARS-COV-2) vaccine, unspecified COVID-19 (SARS-COV-2) vaccine, unspecified 2020-05-22 00:00:[address] [facility] SARS-COV-2 COVID-19 PFIZER VACCINE 2020-05-12 00:00:00 Completed [facility] SARS-COV-2 COVID-19 PFIZER VACCINE 2020-05-12 00:00:00 Completed [facility] SARS-COV-2 COVID-19 PFIZER VACCINE 2020-05-12 00:00:00 Completed [facility] SARS-COV-2 COVID-19 PFIZER VACCINE 2020-05-12 00:00:00 Completed [facility] SARS-COV-2 COVID-19 PFIZER VACCINE 2020-05-12 00:00:00 Completed [facility] SARS-COV-2 COVID-19 PFIZER VACCINE 2020-05-12 00:00:00 Completed [facility] SARS-COV-2 COVID-19 PFIZER VACCINE 2020-05-12 00:00:00 Completed [facility] SARS-COV-2 COVID-19 PFIZER VACCINE 2020-05-12 00:00:00 Completed [facility] SARS-COV-2 COVID-19 PFIZER VACCINE 2020-05-12 00:00:00 Completed [facility] SARS-COV-2 COVID-19 PFIZER VACCINE 2020-05-12 00:00:00 Completed [facility] SARS-COV-2 COVID-19 PFIZER VACCINE 2020-05-12 00:00:00 Completed [facility] SARS-COV-2 COVID-19 PFIZER VACCINE 2020-05-12 00:00:00 Completed [facility] Influenza Virus Vaccine Quad IM Multi-dose 6+ MO 2020-01-20 00:00:00 Completed [facility] Influenza Virus Vaccine Quad IM Multi-dose 6+ MO 2020-01-20 00:00:00 Completed [facility] Influenza Virus Vaccine Quad IM Multi-dose 6+ MO 2020-01-20 00:00:00 Completed [facility] Influenza Virus Vaccine Quad IM Multi-dose 6+ MO 2020-01-20 00:00:00 Completed [facility] Influenza Virus Vaccine Quad IM Multi-dose 6+ MO 2020-01-20 00:00:00 Completed [facility] Influenza Virus Vaccine Quad IM Multi-dose 6+ MO 2020-01-20 00:00:00 Completed [facility] Influenza Virus Vaccine Quad IM Multi-dose 6+ MO 2020-01-20 00:00:00 Completed [facility] Influenza Virus Vaccine Quad IM Multi-dose 6+ MO 2020-01-20 00:00:00 Completed influenza, injectable, quadrivalent influenza, injectable, quadrivalent 2020-01-20 00:00:[address] [facility] Influenza Virus Vaccine Quad IM 3+ YRS 2018-01-29 00:00:00 Completed [facility] Influenza Virus Vaccine Quad IM 3+ YRS 2018-01-29 00:00:00 Completed [facility] Influenza Virus Vaccine Quad IM 3+ YRS 2018-01-29 00:00:00 Completed [facility] Influenza Virus Vaccine Quad IM 3+ YRS 2018-01-29 00:00:00 Completed [facility] Influenza Virus Vaccine Quad IM 3+ YRS 2018-01-29 00:00:00 Completed [facility] Influenza Virus Vaccine Quad IM 3+ YRS 2018-01-29 00:00:00 Completed [facility] Influenza Virus Vaccine Quad IM 3+ YRS 2018-01-29 00:00:00 Completed [facility] Influenza Virus Vaccine Quad IM 3+ YRS 2018-01-29 00:00:00 Completed [facility] Influenza Virus Vaccine Quad IM 3+ YRS 2018-01-29 00:00:00 Completed [facility] Influenza Virus Vaccine Quad IM 3+ YRS 2018-01-29 00:00:00 Completed [facility] Influenza Virus Vaccine Quad IM 3+ YRS 2018-01-29 00:00:00 Completed [facility] Influenza Virus Vaccine Quad IM 3+ YRS 2018-01-29 00:00:00 Completed [facility] TDAP 2016-07-20 00:00:00 Completed [facility] TDAP 2016-07-20 00:00:00 Completed [facility] TDAP 2016-07-20 00:00:00 Completed [facility] TDAP 2016-07-20 00:00:00 Completed [facility] TDAP 2016-07-20 00:00:00 Completed [facility] TDAP 2016-07-20 00:00:00 Completed [facility] TDAP 2016-07-20 00:00:00 Completed [facility] TDAP 2016-07-20 00:00:00 Completed [facility] TDAP 2016-07-20 00:00:00 Completed [facility] TDAP 2016-07-20 00:00:00 Completed [facility] TDAP 2016-07-20 00:00:00 Completed [facility] TDAP 2016-07-20 00:00:00 Completed Tetanus Toxoid, Absorbed 2015-04-21 00:00:00 Completed [facility] Tetanus Toxoid, Absorbed 2015-04-21 00:00:00 Completed [facility] Tetanus Toxoid, Absorbed 2015-04-21 00:00:00 Completed [facility] Tetanus Toxoid, Absorbed 2015-04-21 00:00:00 Completed [facility] Tetanus Toxoid, Absorbed 2015-04-21 00:00:00 Completed [facility] Tetanus Toxoid, Absorbed 2015-04-21 00:00:00 Completed [facility] Tetanus Toxoid, Absorbed 2015-04-21 00:00:00 Completed [facility] Tetanus Toxoid, Absorbed 2015-04-21 00:00:00 Completed tetanus toxoid, adsorbed tetanus toxoid, adsorbed 2015-04-21 00:00:[address] [facility] Influenza Virus Vaccine Quad IM 3+ YRS Unknown Completed [facility] SARS-COV-2 COVID-19 PFIZER VACCINE Unknown Completed [facility] TDAP Unknown Completed [facility] SARS-COV-2 COVID-19 UNSPECIFIED VACCINE Unknown Completed [facility] Influenza Virus Vaccine Quad IM Multi-dose 6+ MO Unknown Completed [facility] Tetanus Toxoid, Absorbed Unknown Completed [facility] Influenza Virus Vaccine Quad IM 3+ YRS Unknown Completed [facility] SARS-COV-2 COVID-19 PFIZER VACCINE Unknown Completed [facility] TDAP Unknown Completed [facility] Influenza Virus Vaccine Quad IM Multi-dose 6+ MO Unknown Completed [facility] Tetanus Toxoid, Absorbed Unknown Completed [facility] Influenza Virus Vaccine Quad IM 3+ YRS Unknown Completed [facility] SARS-COV-2 COVID-19 PFIZER VACCINE Unknown Completed [facility] TDAP Unknown Completed [facility] SARS-COV-2 COVID-19 UNSPECIFIED VACCINE Unknown Completed [facility] Influenza Virus Vaccine Quad IM Multi-dose 6+ MO Unknown Completed [facility] Tetanus Toxoid, Absorbed Unknown Completed [facility] Vital Signs Vital Name Observation Time Observation Value Comments S ource BP Diastolic 2024-07-06 00:00:00 85 mm[Hg] [facility] Height 2024-07-06 00:00:00 63 [in_i] [facility] Practice BMI (Body Mass Index) 2024-07-06 00:00:00 35.5 kg/m2 [facility] Body Weight 2024-07-06 00:00:00 200.2 [lb_av] [facility] BP Systolic 2024-07-06 00:00:00 124 mm[Hg] [facility] BP Systolic 2023-06-17 00:00:00 117 mm[Hg] [facility] Height 2023-06-17 00:00:00 63 [in_i] [facility] BP Diastolic 2023-06-17 00:00:00 75 mm[Hg] [facility] Body Weight 2023-06-17 00:00:00 181.4 [lb_av] [facility] BMI (Body Mass Index) 2023-06-17 00:00:00 32.1 kg/m2 [facility] Systolic blood pressure 2022-09-03 20:06:00 113 mm[Hg] [facility] Diastolic blood pressure 2022-09-03 20:06:00 80 mm[Hg] [facility] Heart rate 2022-09-03 20:06:00 85 /min [facility] Respiratory rate 2022-09-03 20:06:00 20 /min [facility] Body height 2022-09-03 20:06:00 161.5 cm [facility] Body weight 2022-09-03 20:06:00 83.825 kg [facility] BMI 2022-09-03 20:06:00 32.12 kg/m2 [facility] Oxygen saturation in Arterial blood by Pulse oximetry 2022-09-03 20:06:00 99 /min [facility] Systolic blood pressure 2022-06-05 20:13:00 130 mm[Hg] [facility] Diastolic blood pressure 2022-06-05 20:13:00 84 mm[Hg] [facility] Heart rate 2022-06-05 20:13:00 97 /min [facility] Body height 2022-06-05 20:13:00 160 cm [facility] Body weight 2022-06-05 20:13:00 78.155 kg [facility] BMI 2022-06-05 20:13:00 30.52 kg/m2 [facility] Oxygen saturation in Arterial blood by Pulse oximetry 2022-06-05 20:13:00 100 /min [facility] Systolic blood pressure 2022-05-29 22:44:00 118 mm[Hg] [facility] Diastolic blood pressure 2022-05-29 22:44:00 74 mm[Hg] [facility] Heart rate 2022-05-29 22:44:00 92 /min [facility] Body height 2022-05-29 22:44:00 160 cm [facility] Body weight 2022-05-29 22:44:00 77.111 kg [facility] BMI 2022-05-29 22:44:00 30.11 kg/m2 [facility] Oxygen saturation in Arterial blood by Pulse oximetry 2022-05-29 22:44:00 99 /min [facility] BP Diastolic 2022-02-05 00:00:00 72 mm[Hg] [facility] Height 2022-02-05 00:00:00 63 [in_i] [facility] BMI (Body Mass Index) 2022-02-05 00:00:00 30.1 kg/m2 [facility] BP Systolic 2022-02-05 00:00:00 108 mm[Hg] [facility] Body Weight 2022-02-05 00:00:00 170 [lb_av] [facility] Systolic blood pressure 2021-12-25 18:44:00 104 mm[Hg] [facility] Diastolic blood pressure 2021-12-25 18:44:00 71 mm[Hg] [facility] Heart rate 2021-12-25 18:44:00 98 /[facility] Body temperature 2021-12-25 18:44:00 36.89 Urmila [facility] Body height 2021-12-25 18:44:00 160 cm [facility] Body weight 2021-12-25 18:44:00 76.658 kg [facility] BMI 2021-12-25 18:44:00 29.94 kg/m2 [facility] Oxygen saturation in Arterial blood by Pulse oximetry 2021-12-25 18:44:00 99 /min [facility] BP Diastolic 2021-10-03 00:00:00 64 mm[Hg] [facility] Height 2021-10-03 00:00:00 63 [in_i] [facility] BMI (Body Mass Index) 2021-10-03 00:00:00 25.7 kg/m2 [facility] ly [facility] BP Systolic 2021-10-03 00:00:00 94 mm[Hg] [facility] Body Weight 2021-10-03 00:00:00 145 [lb_av] [facility] BP Diastolic 2021-08-14 00:00:00 60 mm[Hg] [facility] Height 2021-08-14 00:00:00 63 [in_i] [facility] BMI (Body Mass Index) 2021-08-14 00:00:00 27.8 kg/m2 [facility] ly Practice BP Systolic 2021-08-14 00:00:00 91 mm[Hg] [facility] Body Weight 2021-08-14 00:00:00 156.8 [lb_av] [facility] BP Diastolic 2021-05-16 00:00:00 81 mm[Hg] [facility] Height 2021-05-16 00:00:00 63 [in_i] [facility] BMI (Body Mass Index) 2021-05-16 00:00:00 32.2 kg/m2 [facility] ly Practice BP Systolic 2021-05-16 00:00:00 115 mm[Hg] [facility] Body Weight 2021-05-16 00:00:00 182 [lb[facility]av] [facility] Diastolic 2020-10-11 00:00:00 77 mm[Hg] [facility] Height 2020-10-11 00:00:00 63 [in_i] [facility] BMI (Body Mass Index) 2020-10-11 00:00:00 30.5 kg/m2 [facility] ly Practice BP Systolic 2020-10-11 00:00:00 113 mm[Hg] [facility] Body Weight 2020-10-11 00:00:00 172.4 [lb_av] [facility] BP Diastolic 2020-07-14 00:00:00 77 mm[Hg] [facility] Height 2020-07-14 00:00:00 63 [in_i] [facility] BMI (Body Mass Index) 2020-07-14 00:00:00 32.8 kg/m2 [facility] ly Practice BP Systolic 2020-07-14 00:00:00 108 mm[Hg] [facility] Body Weight 2020-07-14 00:00:00 185 [lb_av] [facility] BP Diastolic 2020-04-11 00:00:00 68 mm[Hg] [facility] Height 2020-04-11 00:00:00 63 [in_i] [facility] BMI (Body Mass Index) 2020-04-11 00:00:00 31.4 kg/m2 [facility] BP Systolic 2020-04-11 00:00:00 118 mm[Hg] [facility] Body Weight 2020-04-11 00:00:00 177 [lb_av] [facility] BP Diastolic 2019-02-10 00:00:00 75 mm[Hg] [facility] Height 2019-02-10 00:00:00 63 [in_i] [facility] BMI (Body Mass Index) 2019-02-10 00:00:00 25.7 kg/m2 [facility] BP Systolic 2019-02-10 00:00:00 120 mm[Hg] [facility] Body Weight 2019-02-10 00:00:00 145.1 [lb_av] [facility] Procedures Procedure Date / Time Performed Performing Clinician Source FLU VACC ([id number]), 6 MO-64 YRS, .5ML, IM, TIV (FLUCELVAX) 2024-02-19 18:30:51 Yosi Chau [facility] POCT SARS-COV-2 ANTIGEN (BINAX NOW) 2023-05-06 16:53:00 Monique Garcia [facility] THYROID STIMULATING HORMONE 2022-10-04 14:50:00 Yuridia Arriola [facility] LIPID PANEL (01006)(TOTAL CHOLESTEROL, TRIGLYCERIDES, HDL) 2022-10-04 14:50:00 Yuridia Arriola [facility] GLYCOSYLATED HEMOGLOBIN (A1C) 2022-10-04 14:50:00 Yuridia Arriola [facility] PHYSICIAN ORDERS 2022-10-04 05:01:00 Doctor Unas signed, [place] [facility] PATIENT FINANCIAL POLICY 2022-09-03 19:30:31 Doctor Unassigned, [place] [facility] ASSIGNMENT OF BENEFITS 2022-05-29 22:26:18 Docto r Unassigned, [place] [facility] EXTERNAL PROVIDER RECORDS 2022-01-07 05:01:00 Doctor Unassigned, [place] [facility] Hysterectomy (Total) 2019-06-20 00:00:[address] [facility] CT, sinuses, w/o contrast 2019-02-10 00:00:00 Carlito Sandoval [facility] Laparoscopic Sleeve Gastrectomy 2015-09-20 00:00:[address] [facility] Sinus Surgery [facility] Plan of Care Planned Activity Planned Date Details Comments Source Instructions Carlito [facility] Encounters Start Date/Time End Date/Time Encounter Type Admission Type Attending Clinicians Care Facility Care Department Encounter ID Source 2024-07-06 00:00:00 2024-07-06 00:00:00 Claudy Grey MD: [id number] [employer] [facility], [address] [address] , Ph. [facility] - [facility] [place] - VM_HOU_Shad [facility] [id number] [facility] e 2012-07-17 00:00:00 2024-06-05 04:48:05 Orders Only Leyda Plata [facility] 1..840.114 350.1.13.10 4.2.7.2.686 [id number] [facility] 2024-02-19 13:30:00 2024-02-19 13:45:00 Imm/Inj Visit Nurse-Adc, [facility] Imm Yosi Chau Nurse-Adc, [facility] 1..840.114 350.1.13.10 4.2.7.2.686 [id number] [facility] 2024-02-19 13:30:00 2024-02-19 13:30:[address] [facility] [id number] [facility] 2023-06-17 00:00:00 2023-06-17 00:00:00 Outpatient Bui_Q_WAGDN U [facility] [id number] [facility] 2023-06-17 00:00:00 2023-06-17 00:00:00 Claudy Grey MD: [id number], [place] [address] , Ph. [facility] - [facility] - [place] - VM_HOU_Shad ow [employer] [place] [id number] [facility] 2023-05-06 11:00:00 2023-05-06 11:00:00 Laboratory Only Only, Ang Db Test Unknown, [facility] 1..840.114 350.1.13.10 4.2.7.2.686 [id number] [facility] 2023-05-06 11:00:00 2023-05-06 10:55:40 Outpatient R MONIQUE GARCIA [facility] [id number] [facility] 2023-05-05 12:00:00 2023-05-05 12:00:[address] [facility] [id number] [facility] 2022-11-10 16:33:00 2022-11-10 20:48:00 Emergency E EVE, BRANDYN [facility] [id number] [facility] 2022-10-11 15:30:00 2022-10-11 15:30:00 Outpatient R YURIDIA ARRIOLA [facility] [id number] [facility] 2022-10-07 00:00:00 2022-10-07 00:00:00 Patient Secure Msg Doctor Unassigned, [place] [facility] 1..840.114 350.1.13.10 4.2.7.2.686 [id number] [facility] 2022-10-04 10:45:00 2022-10-04 11:00:00 Documentation Lead Visit Xi, Adc Lab Main Gabriela Luong [facility] NAL BUILDING 1.840.114 350.1.13.10 4.2.7.2.686 [id number] [facility] 2022-10-04 10:45:00 2022-10-04 10:45:00 Outpatient R GABRIELA LUONG [facility] [id number] [facility] 2022-10-04 00:00:00 2022-10-04 00:00:00 Orders Only Doctor Unassigned, [place] [facility] 1.0.114 350.1.13.10 4.2.7.2.686 [id number] [facility] 2022-09-04 11:00:00 2022-09-04 11:00:00 Outpatient R MASRHA WILLS [facility] [id number] [facility] 2022-09-03 14:30:00 2022-09-03 15:44:33 Outpatient R YURIDIA ARRIOLA [facility] [id number] [facility] 2022-09-03 14:30:00 2022-09-03 15:44:33 Office Visit [facility] 1.84.114 350.1.13.10 4.2.7.2.686 [id number] [facility] 2022-09-03 00:00:00 2022-09-03 00:00:00 Orders Only Doctor Unassigned, [place] [facility] 1.84114 350.1.13.10 4.2.7.2.686 [id number] [facility] 2022-06-28 00:00:00 2022-06-28 00:00:00 Telephone Marsha Wills [facility] 1.84.114 350.1.13.10 4.2.7.2.686 [id number] [facility] 2022-06-05 14:00:00 2022-06-05 14:56:53 Outpatient R MARSHA [facility]S [facility] [id number] [facility] 2022-06-05 14:00:00 2022-06-05 14:56:53 [facility] 1.2.840.114 350.1.13.10 4.2.7.2.686 [id number] [facility] 2022-05-29 16:30:00 2022-05-29 17:14:09 [address] R [address]SHA [facility] [id number] [facility] 2022-05-29 16:30:00 2022-05-29 17:14:09 Office Visit Elma [facility] 1.2.840.114 350.1.13.10 4.2.7.2.686 [id number] [facility] 2022-05-29 00:00:00 2022-05-29 00:00:00 Orders Only Doctor Unassigned, [place] [facility] 1.2.840.114 350.1.13.10 4.2.7.2.686 [id number] [facility] 2022-04-10 00:00:00 2022-04-10 00:00:00 Outpatient Que_CHELSEA U_ VFP VFP [id number] [facility] 2022-02-05 00:00:00 2022-02-05 00:00:00 Outpatient Bui_Q_WAGDN U VFP VFP [id number] [facility] 2022-02-05 00:00:00 2022-02-05 00:00:00 Outpatient Bui_Q_WAGDN U VFP VFP [id number] [facility] 2022-02-05 00:00:00 2022-02-05 00:00:00 Claudy Grey MD: [id number], [place] [address] , Ph. VFP [place] - [facility] - [place] - VM_HOU_Shad jaden Johnson [id number] [facility] 2022-01-23 00:00:00 2022-01-23 00:00:00 Outpatient Daniel_T VFP VFP [id number] [facility] 2022-01-22 00:00:00 2022-01-22 00:00:00 Outpatient Bui_Q_WAGDN U VFP VFP [id number] [facility] 2022-01-07 00:00:00 2022-01-07 00:00:00 Orders Only Doctor Unassigned, [place] [facility] 1.2.840.114 350.1.13.10 4.2.7.2.686 [id number] [facility] 2021-12-25 13:30:00 2021-12-25 14:00:00 Office Visit Jose Roberto Prado [facility] 1.2.840.114 350.1.13.10 4.2.7.2.686 [id number] [facility] 2021-12-25 13:30:00 2021-12-25 13:30:00 Outpatient R JOSE ROBERTO PRADO [facility] [id number] [facility] 2021-12-18 00:00:00 2021-12-18 00:00:00 Outpatient Daniel_T VFP VFP [id number] [facility] 2021-11-13 02:41:00 2021-11-13 02:41:00 Outpatient Daniel_T VFP VFP [id number] [facility] 2021-10-26 09:19:00 2021-10-26 09:19:00 Outpatient Bui_Q_WAGDN U VFP VFP [id number] [facility] 2021-10-24 08:30:00 2021-10-24 08:45:00 Documentation Lead Visit Alie Layne Gabriela Damon [facility] 1.2.840.114 350.1.13.10 4.2.7.2.686 [id number] [facility] 2021-10-24 08:30:00 2021-10-24 08:30:[address] [facility] [id number] [facility] 2021-10-24 00:00:00 2021-10-24 00:00:00 Orders Only Doctor Unassigned, [place] [facility] 1..840.114 350.1.13.10 4.2.7.2.686 [id number] [facility] 2021-10-18 00:00:00 2021-10-18 00:00:00 Patient Secure Msg Doctor Unassigned, [place] [facility] 1..840.114 350.1.13.10 4.2.7.2.686 [id number] [facility] 2021-10-11 15:29:12 2021-10-11 23:59:[address] [facility] [id number] [facility] 2021-10-11 15:29:12 2021-10-11 23:59:00 Hospital Encounter Keshav Camron [facility] ([facility]) 1..840.114 350.1.13.10 4.2.7.2.686 [id number] [facility] 2021-10-11 15:29:12 2021-10-11 23:59:00 Outpatient Jannie PARR [facility] [id number] [facility] 2021-10-08 11:00:00 2021-10-08 11:15:00 Documentation Lead Visit Ana, Mars[facility] 1.2.840.114 350.1.13.10 4.2.7.2.686 [id number] [facility] 2021-10-08 10:00:00 2021-10-08 10:33:16 Outpatient R KESHAV [facility] [id number] [facility] 2021-10-08 10:00:00 2021-10-08 10:33:16 Office Visit Keshav [facility]?BAKARI [facility] MEDICAL OFFICE BUILDING 1.2.840.114 350.1.13.10 4.2.7.2.686 [id number] [facility] 2021-10-08 10:00:00 2021-10-08 10:33:16 Outpatient R KESHAV [facility] [id number] [facility] 2021-10-03 00:00:00 2021-10-03 00:00:00 Claudy Grey MD: [id number] [employer] [facility], [address], [place] [address] , Ph. Que_T VFP [facility] - _HOU_Shad [employer] [place] [id number] [facility] 2021-09-28 11:30:00 2021-09-28 13:03:14 Outpatient R MARSHA [facility] [id number] [facility] 2021-09-28 11:30:00 2021-09-28 13:03:14 Office Visit Marsha Wills [facility]KARI [facility] 1.2.840.114 350.1.13.10 4.2.7.2.686 [id number] [facility] 2021-09-05 04:42:00 2021-09-05 04:42:00 Outpatient Que_T VFP [facility] [id number] [facility] e 2021-09-04 11:36:00 2021-09-04 11:36:00 Outpatient Bui_Q_WAGDN U VFP VFP [id number] [facility] e 2021-08-23 00:00:00 2021-08-23 00:00:00 Orders Only Doctor Unassigned, [place] [facility] 1.840.114 350.1.13.10 4.2.7.2.686 [id number] [facility] 2021-08-15 00:00:00 2021-08-15 00:00:00 Telephone Bradly Navarro [facility]?BAKARI ROSALES [facility] OFF[facility] BUILD[facility] 1.84.114 350.1.13.10 4.2.7.2.686 [id number] [facility] 2021-08-14 00:00:00 2021-08-14 00:00:00 Claudy Grey MD: [id number] [facility], [address], [place] [address] , Ph. Que_T VFP [place] - [facility] - _HOU_[facility] [id number] [facility] 2021-07-16 11:00:00 2021-07-16 11:15:00 Documentation Lead Visit Pob, Adc Lab Main Jesu Kiser [facility] 1.840.114 350.1.13.10 4.2.7.2.686 [id number] [facility] 2021-07-16 11:00:00 2021-07-16 11:00:[address] [facility] [id number] [facility] 2021-07-16 00:00:00 2021-07-16 00:00:00 Orders Only Doctor Unassigned, [place] [facility] 1.840.114 350.1.13.10 4.2.7.2.686 [id number] [facility] 2021-07-13 16:00:00 2021-07-13 17:03:21 Outpatient R JESU KISER [facility] [id number] [facility] 2021-07-13 16:00:00 2021-07-13 17:03:21 Office Visit RashelAsiakarenlorena Cesar [facility] OLEGARIO?[facility]I [facility] MED[facility] OFFICE BUILDING 1.2.840.114 350.1.13.10 4.2.7.2.686 [id number] [facility] 2021-07-02 02:19:00 2021-07-02 02:19:00 Outpatient Daniel_T VFP [facility] [id number] [facility] 2021-05-31 03:30:00 2021-05-31 03:30:00 Outpatient Daniel_T VFP [facility] [id number] [facility] 2021-05-25 10:45:00 2021-05-25 11:00:00 Documentation Lead Visit Lab, Chris - Raj KiserAsiakarenlorena [facility]I [facility] MED[facility] OFFICE BUILD[facility] 1.2.840.114 350.1.13.10 4.2.7.2.686 [id number] [facility] 2021-05-25 10:45:00 2021-05-25 10:45:00 Outpatient R JESU [facility]ER [facility] [id number] [facility] 2021-05-25 09:30:00 2021-05-25 10:37:03 Office Visit Jose Roberto Prado [facility] OLE[facility]I [facility] MED[facility] OFFICE BUILDING 1.2.840.114 350.1.13.10 4.2.7.2.686 [id number] [facility] 2021-05-25 09:30:00 2021-05-25 10:37:03 Outpatient R JOSE ROBERTO PRADO [facility] [id number] [facility] 2021-05-25 00:00:00 2021-05-25 00:00:00 Letter (Out) Jose Roberto Prado [facility]I CABA [facility] 1.84.114 350.1.13.10 4.2.7.2.686 [id number] [facility] 2021-05-22 07:30:00 2021-05-22 07:45:00 Documentation Lead Visit Pob, [facility]c [facility] 1.84.114 350.1.13.10 4.2.7.2.686 [id number] [facility] 2021-05-22 07:30:00 2021-05-22 07:30:00 Outpatient R AG [facility] [id number] [facility] 2021-05-22 00:00:00 2021-05-22 00:00:00 Orders Only Doctor Unassigned, [place] [facility] .84.114 350.1.13.10 4.2.7.2.686 [id number] [facility] 2021-05-17 11:37:00 2021-05-17 11:37:00 Outpatient Bui_Q_WAGDN U [facility] [id number] [facility] 2021-05-16 00:00:00 2021-05-16 00:00:00 Claudy Grey MD: [id number] [place] [employer] [facility], [address], [place] [address] , Ph. Que_Gene [facility] - [facility] - VM_HOU_Shad ow [employer] [place] [id number] [facility] e 2021-05-10 11:45:00 2021-05-10 12:00:00 Laboratory Only Only, Adc Test [facility] 1.84.114 350.1.13.10 4.2.7.2.686 [id number] [facility] 2021-05-10 11:45:00 2021-05-10 11:45:[address] [facility] [id number] [facility] 2021-05-10 00:00:00 2021-05-10 00:00:00 Orders Only Doctor Unassigned, [place] [facility] 1.20.114 350.1.13.10 4.2.7.2.686 [id number] [facility] 2021-04-24 12:15:00 2021-04-24 12:30:00 Documentation Lead Visit Pob, Adc Lab Main Jesu Kiser [facility] 1.84.114 350.1.13.10 4.2.7.2.686 [id number] [facility] 2021-04-24 12:15:00 2021-04-24 12:15:00 Outpatient R JESU K[facility]ER [facility] [id number] [facility] 2021-04-24 00:00:00 2021-04-24 00:00:00 Letter (Out) Mary Hernandez [facility] 1.84.114 350.1.13.10 4.2.7.2.686 [id number] [facility] 2021-03-06 13:19:43 2021-03-06 14:08:46 Office Visit Jesu Kiser [facility]KARI KAYLACAITLIN MED[facility] OFFICE BUILDING 1.84.114 350.1.13.10 4.2.7.2.686 [id number] [facility] 2021-03-06 13:15:00 2021-03-06 14:08:46 Outpatient R JESU [facility]ER [facility] [id number] [facility] 2021-03-06 13:15:00 2021-03-06 14:08:46 Outpatient R JESU [facility] [id number] [facility] 2021-03-05 11:21:14 2021-03-05 11:36:14 Laboratory Only Only, Adc Test Jesu Kiser [facility] 1.2.840.114 350.1.13.10 4.2.7.2.686 [id number] [facility] 2021-03-05 10:45:00 2021-03-05 10:45:00 Outpatient R RASHELASIA BYRNEKARENLORENA [facility] [id number] [facility] 2021-03-02 09:46:00 2021-03-02 09:46:00 Outpatient Daniel_T VFP VFP [id number] [facility] 2021-02-28 11:00:00 2021-02-28 11:00:00 Outpatient R ASIA KISERKARENLORENA [facility] [id number] [facility] 2021-02-28 11:00:00 2021-02-28 11:00:00 Outpatient R RASHELASIA BYRNEKARENLORENA [facility] [id number] [facility] 2021-02-27 14:54:20 2021-02-27 15:58:35 Office Visit GreeleyAsia byrnekarenlorena Cesar [facility]?BAKARI CABA MEDICAL OFFICE BUILDING 1.2.840.114 350.1.13.10 4.2.7.2.686 [id number] [facility] 2021-02-27 14:30:00 2021-02-27 15:58:35 Outpatient R RASHEL ASIANAT [facility] [id number] [facility] 2021-02-27 14:30:00 2021-02-27 14:30:00 Outpatient R RASHEL ASIAKARENLORENA [facility] [id number] [facility] 2021-02-05 00:00:00 2021-02-05 00:00:00 Patient Secure Msg Jesu Kiser [facility] Medical Office Building 1..840.114 350.1.13.10 4.2.7.2.686 [id number] [facility] 2021-01-04 16:04:01 2021-01-04 16:19:01 Laboratory Only Only, Ang Db Test [facility]dev [facility]ender [facility] Medical Office Building 1.84.114 350.1.13.10 4.2.7.2.686 [id number] [facility] 2021-01-04 16:15:00 2021-01-04 16:15:[address] [facility] [id number] [facility] 2021-01-01 08:30:23 2021-01-01 09:58:30 Office Visit Jesu Kiser [facility] Medical Office Building 1.84.114 350.1.13.10 4.2.7.2.686 [id number] [facility] 2021-01-01 08:30:00 2021-01-01 08:30:00 Outpatient R JESU [facility]ER [facility] [id number] [facility] 2020-11-29 12:30:00 2020-11-29 12:30:00 Outpatient R GABRIELA LUONG [facility] [id number] [facility] 2020-11-29 11:50:03 2020-11-29 12:05:03 Laboratory Only Only, Adc Test Gabriela Luong [facility] 1.84.114 350.1.13.10 4.2.7.2.686 [id number] [facility] 2020-11-29 00:00:00 2020-11-29 00:00:00 Orders Only Doctor Unassigned, [place] [facility] 1.2840.114 350.1.13.10 4.2.7.2.686 [id number] [facility] 2020-11-29 00:00:00 2020-11-29 00:00:00 Telephone Zakia Barrera [facility] 1.2.840.114 350.1.13.10 4.2.7.2.686 [id number] [facility] 2020-11-28 11:59:13 2020-11-28 12:14:13 Documentation Lead Visit Pob, Adc Lab Main [place] byrnekarenlorena Cesar [facility] Building 1.2.840.114 350.1.13.10 4.2.7.2.686 [id number] [facility] 2020-11-28 10:03:22 2020-11-28 10:55:43 Office Visit Jesu Kiser [facility] Office Building One 1.2.840.114 350.1.13.10 4.2.7.2.686 [id number] [facility] 2020-11-28 10:00:00 2020-11-28 10:00:00 Outpatient R RASHELASIA BYRNENAT [facility] [id number] [facility] 2020-11-09 10:55:20 2020-11-09 11:10:20 Documentation Lead Visit Pob, Adc Lab Main [place] byrnekarenlorena Cesar [facility] Building 1.2.840.114 350.1.13.10 4.2.7.2.686 [id number] [facility] 2020-11-09 08:30:00 2020-11-09 08:30:00 Outpatient R RASHEL ASIANAT [facility] [id number] [facility] 2020-11-09 00:00:00 2020-11-09 00:00:00 Orders Only Doctor Unassigned, [place] [facility] 1.0.114 350.1.13.10 4.2.7.2.686 [id number] [facility] 2020-10-13 12:26:00 2020-10-13 12:26:00 Outpatient Bui_Q_WAGDN U VFP VFP [id number] [facility] e 2020-10-11 00:00:00 2020-10-11 00:00:00 Claudy Grey MD: [id number] [address] [employer] [facility], [address], [place] [address] , Ph. Que_T VFP [place] - [facility] - _NICOLAS_[place] ow [employer] [place] [id number] [facility] e 2020-10-11 00:00:00 2020-10-11 00:00:00 Orders Only Doctor Unassigned, [place] [facility] 04.22.830.114 350.1.13.10 4.2.7.2.686 [id number] [facility] 2020-10-10 02:11:00 2020-10-10 02:11:00 Outpatient Felizjhonathan_T VFP VFP [id number] [facility] e 2020-10-03 00:00:00 2020-10-03 00:00:00 Telephone Team, [facility] .0.114 350.1.13.10 4.2.7.2.686 [id number] [facility] 2020-09-02 09:14:53 2020-09-02 09:34:53 Laboratory Only Lab, Adc Fam Sukhdev Pena [facility] Office Building One ..114 350.1.13.10 4.2.7.2.686 [id number] [facility] 2020-09-02 09:20:00 2020-09-02 09:20:[address] [facility] [id number] [facility] 2020-08-14 13:40:00 2020-08-14 13:40:00 Outpatient R YURIDIA ARRIOLA [facility] [id number] [facility] 2020-08-14 10:39:52 2020-08-14 10:54:52 Laboratory Only Only, Adc Test Jesu Kiser [facility] 1.2.840.114 350.1.13.10 4.2.7.2.686 [id number] [facility] 2020-07-25 00:00:00 2020-07-25 00:00:00 Orders Only Doctor Unassigned, [place] [facility] 1.2.840.114 350.1.13.10 4.2.7.2.686 [id number] [facility] 2020-07-25 00:00:00 2020-07-25 00:00:00 Orders Only Doctor Unassigned, [place] [facility] 1.2.840.114 350.1.13.10 4.2.7.2.686 [id number] 2020-07-24 14:03:59 2020-07-24 14:18:59 Documentation Lead Visit Pob, Adc Lab Main Gabriela Luong [facility] 1.2840.114 350.1.13.10 4.2.7.2.686 [id number] [facility] 2020-07-24 14:03:59 2020-07-24 14:18:59 Documentation Lead Visit Pob, Adc Lab Main [facility] 1.2840.114 350.1.13.10 4.2.7.2.686 [id number] 2020-07-24 10:00:00 2020-07-24 10:00:[address] [facility] [id number] [facility] 2020-07-19 06:36:00 2020-07-19 06:36:00 Outpatient Bui_Q_WAG VFP VFP [id number] [facility] 2020-07-14 00:00:00 2020-07-14 00:00:00 Claudy Grey MD: [id number] [place] [address], [address], [place] [address] , Ph. Que_T VFP [place] - [facility] Medical - VM_HOU_Shad ow [employer] [place] [id number] [facility] 2020-06-02 08:00:00 2020-06-02 08:00:[address] [facility] [id number] [facility] 2020-05-28 17:04:02 2020-05-28 17:24:02 Urgent Care Provider, [facility] 1.840.114 350.1.13.10 4.2.7.2.686 [id number] [facility] 2020-05-28 17:04:02 2020-05-28 17:24:02 Urgent Care Provider, Chris [facility] Office Building One 1..840.114 350.1.13.10 4.2.7.2.686 [id number] 2020-05-28 17:20:00 2020-05-28 17:20:00 Outpatient Jannie [facility]ER [facility] [id number] [facility] 2020-05-16 00:00:00 2020-05-16 00:00:00 Patient Secure Msg Doctor Unassigned, [place] [facility] 1.840.114 350.1.13.10 4.2.7.2.686 [id number] [facility] 2020-05-15 15:04:50 2020-05-15 15:19:50 Documentation Lead Visit Potea, Adc Lab Main Jesu Kiser [facility] Building 1.2.840.114 350.1.13.10 4.2.7.2.686 [id number] [facility] 2020-05-15 15:04:50 2020-05-15 15:19:50 Documentation Lead Visit Pob, Adc Lab Main [facility] Building 1.2840.114 350.1.13.10 4.2.7.2.686 [id number] 2020-05-15 15:00:00 2020-05-15 15:00:[address] [facility] [id number] [facility] 2020-05-15 00:00:00 2020-05-15 00:00:00 Orders Only Doctor Unassigned, [place] [facility] 1.2840.114 350.1.13.10 4.2.7.2.686 [id number] [facility] 2020-05-15 00:00:00 2020-05-15 00:00:00 Orders Only Doctor Unassigned, [place] [facility] 1.2840.114 350.1.13.10 4.2.7.2.686 [id number] 2020-05-12 17:00:00 2020-05-12 17:00:[address] [facility] [id number] [facility] 2020-05-10 10:00:00 2020-05-10 10:00:[address] [facility] [id number] [facility] 2020-05-05 14:37:30 2020-05-05 14:52:30 Laboratory Only Only, Adc Test Gabriela Luong [facility] 1.2840.114 350.1.13.10 4.2.7.2.686 [id number] [facility] 2020-05-05 14:37:30 2020-05-05 14:52:30 Laboratory Only Only, Adc Test [facility] ..840.114 350.1.13.10 4.2.7.2.686 [id number] 2020-05-05 14:45:00 2020-05-05 14:45:[address] [facility] [id number] [facility] 2020-04-15 01:55:00 2020-04-15 01:55:00 Outpatient Bui_Q_WAG VFP VFP [id number] [facility] 2020-04-11 00:00:00 2020-04-11 00:00:00 Claudy Grey MD: [address] [address] , Ph. Daniel_T VFP [place] - [facility] Medical - VM_MERRILLU_Feliz ring [id number] [facility] 2020-04-10 05:10:00 2020-04-10 05:10:00 Outpatient Daniel_T VFP VFP [id number] [facility] 2020-04-04 11:25:00 2020-04-04 11:25:00 Outpatient Bui_Q_WAG VFP VFP [id number] [facility] 2020-03-07 11:00:00 2020-03-06 11:00:00 Inpatient Mikki Carpenter [facility] [id number] [facility] 2020-02-01 08:33:57 2020-02-01 08:48:57 Documentation Lead Visit Pob, Adc Lab Main Gabriela Luong [facility] Building ..840.114 350.1.13.10 4.2.7.2.686 [id number] [facility] 2020-02-01 08:33:57 2020-02-01 08:48:57 Documentation Lead Visit Xi, Adc Lab Main [facility] Building 1.2.840.114 350.1.13.10 4.2.7.2.686 [id number] 2020-02-01 07:30:00 2020-02-01 07:30:[address] [facility] [id number] [facility] 2020-02-01 00:00:00 2020-02-01 00:00:00 Orders Only Doctor Unassigned, [place] [facility] 1.2.840.114 350.1.13.10 4.2.7.2.686 [id number] [facility] 2020-02-01 00:00:00 2020-02-01 00:00:00 Orders Only Doctor Unassigned, [place] [facility] 1.2.840.114 350.1.13.10 4.2.7.2.686 [id number] [id number] 2020-01-13 14:54:12 2020-01-13 15:28:24 Nurse Visit Rashel Asianat [facility] Office Building One 1.2840.114 350.1.13.10 4.2.7.2.686 [id number] [facility] 2020-01-13 14:54:12 2020-01-13 15:28:24 Nurse Visit Rashel Asiakarenlorena Cesar [facility] Office Building One 1.2840.114 350.1.13.10 4.2.7.2.686 [id number] 2020-01-13 15:00:00 2020-01-13 15:00:00 Outpatient R JESU KISER [facility] [id number] [facility] 2020-01-05 10:45:00 2020-01-05 23:59:00 Hospital Encounter Jesu Kiser [facility] 1.2.840.114 350.1.13.10 4.2.7.2.686 [id number] [facility] 2020-01-05 00:00:00 2020-01-05 00:00:00 Outpatient R JESU KISER [facility] [id number] [facility] 2020-01-05 00:00:00 2020-01-05 00:00:00 Orders Only Doctor Unassigned, [place] [facility] 1.2840.114 350.1.13.10 4.2.7.2.686 [id number] [facility] 2020-01-03 13:16:48 2020-01-03 14:12:27 Office Visit Jesu Kiser [facility] Office Building One 1..114 350.1.13.10 4.2.7.2.686 [id number] [facility] 2020-01-03 13:16:48 2020-01-03 14:12:27 Office Visit Jesu Kiser [facility] Office Building One 1.114 350.1.13.10 4.2.7.2.686 [id number] 2020-01-03 13:30:00 2020-01-03 13:30:[address] [facility] [id number] [facility] 2019-12-29 12:00:00 2019-12-29 12:00:00 Outpatient Jeanine Mullen [facility] [id number] [facility] 2019-12-22 14:45:00 2019-12-22 14:45:00 Outpatient R ANG SCHILLING [facility] [id number] [facility] 2019-12-22 13:07:36 2019-12-22 13:22:36 Documentation Lead Visit 2, [facility] Lab Ang Schilling [facility] nal Building 1..114 350.1.13.10 4.2.7.2.686 [id number] [facility] 2019-12-22 00:00:00 2019-12-22 00:00:00 Orders Only Doctor Unassigned, [place] [facility] 1.114 350.1.13.10 4.2.7.2.686 [id number] [facility] 2019-11-21 20:00:00 2019-11-21 20:00:00 Outpatient R NONA [address]ERO [facility] [id number] [facility] 2019-11-19 07:15:00 2019-11-19 07:15:00 Outpatient R ZAKIA [facility] [facility] [id number] [facility] 2019-11-19 00:00:00 2019-11-19 00:00:00 Orders Only Doctor Unassigned, [place] [facility] 1.114 350.1.13.10 4.2.7.2.686 [id number] [facility] 2019-11-04 07:00:00 2019-11-04 07:00:00 Outpatient SaiJeanine alvarez [facility] [id number] [facility] 2019-10-28 12:00:00 2019-10-28 12:00:00 Outpatient JHONATHAN Saiantonio Jeanine [facility] [id number] [facility] 2019-10-14 08:00:00 2019-10-14 08:00:[address] [facility] [id number] [facility] 2019-10-14 00:00:00 2019-10-14 00:00:00 Telephone Den Francis [facility] .114 350.1.13.10 4.2.7.2.686 [id number] [facility] 2019-10-12 13:16:55 2019-10-12 13:36:55 Urgent Care Pob1, Acute Care Clinic Zeinab [facility] 1..114 350.1.13.10 4.2.7.2.686 [id number] [facility] 2019-10-12 13:20:00 2019-10-12 13:20:[address] [facility] [id number] [facility] 2019-07-21 00:00:00 2019-07-21 00:00:00 Telephone Jesu Kiser [facility] Building 1.0.114 350.1.13.10 4.2.7.2.686 [id number] [facility] 2019-07-20 00:00:00 2019-07-20 00:00:00 Orders Only Doctor Unassigned, [place] [facility] 1..114 350.1.13.10 4.2.7.2.686 [id number] [facility] 2019-05-27 08:50:43 2019-05-27 09:05:43 Documentation Lead Visit Pob, Adc Lab Main Galo Bailey Hardik [facility] Building 1.114 350.1.13.10 4.2.7.2.686 [id number] [facility] 2019-05-27 08:45:00 2019-05-27 08:45:00 Outpatient R [facility]ALO [facility] [id number] [facility] 2019-05-27 00:00:00 2019-05-27 00:00:00 Orders Only Doctor Unassigned, [place] [facility] 1..114 350.1.13.10 4.2.7.2.686 [id number] [facility] 2019-05-18 11:12:41 2019-05-18 11:41:53 Office Visit Jesu Kiser [facility] Office [facility] 1.114 350.1.13.10 4.2.7.2.686 [id number] [facility] 2019-05-06 15:35:30 2019-05-06 15:50:30 Documentation Lead Visit 2, Adc Lab Jesu Kiser [facility] Building 1.2.840.114 350.1.13.10 4.2.7.2.686 [id number] [facility] 2019-05-06 15:45:00 2019-05-06 15:45:00 Outpatient R JESU KISER [facility] [id number] [facility] 2019-05-06 00:00:00 2019-05-06 00:00:00 Telephone Jesu Kiser [facility] 1.2.840.114 350.1.13.10 4.2.7.2.686 [id number] [facility] 2019-05-06 00:00:00 2019-05-06 00:00:00 Orders Only Doctor Unassigned, [place] 1.2.840.114 350.1.13.10 4.2.7.2.686 [id number] [facility] 2019-05-04 16:21:00 2019-05-04 16:21:00 Office Visit Jesu Kiser [facility] 1.2840.114 350.1.13.10 4.2.7.2.686 [id number] [facility] 2019-02-23 12:11:06 2019-02-23 23:59:[address] [facility] [id number] [facility] 2019-02-10 00:00:00 2019-02-10 00:00:00 Angélica Evans MD: [address] [place] [address], [address], [place] [address] , Ph. [facility] [place] [facility] [id number] [facility] 2019-02-05 12:30:00 2019-02-05 12:30:00 Outpatient R JESU KISER [facility] [id number] [facility] 2018-12-22 12:01:47 2018-12-22 23:59:00 Hospital Encounter Jesu Kiser [facility] 1.2840.114 350.1.13.10 4.2.7.2.686 [id number] [facility] 2018-12-22 10:59:24 2018-12-22 11:43:56 Office Visit Jesu Kiser [facility] 1.2.114 350.1.13.10 4.2.7.2.686 [id number] [facility] 2018-12-22 00:00:00 2018-12-22 00:00:00 Letter (Out) Jesu Kiser [facility] 1.20.114 350.1.13.10 4.2.7.2.686 [id number] [facility] 2018-12-10 10:58:48 2018-12-10 11:35:03 Office Visit Jesu Kiser [facility] 1.2114 350.1.13.10 4.2.7.2.686 [id number] [facility] 2018-12-10 00:00:00 2018-12-10 00:00:00 Orders Only Doctor Unassigned, [place] [facility] 1.2114 350.1.13.10 4.2.7.2.686 [id number] [facility] 2018-11-17 12:51:29 2018-11-17 13:06:29 Documentation Lead Visit 1, Ad[facility] Galo Bailey [facility] 1.2.114 350.1.13.10 4.2.7.2.686 [id number] [facility] 2018-11-17 00:00:00 2018-11-17 00:00:00 Orders Only Doctor Unassigned, [place] [facility] 1.2.840.114 350.1.13.10 4.2.7.2.686 [id number] [facility] Results Test Description Test Time Test Comments Results Result Co mments Source [facility]/volume] in Capillary [id number] 11:34:55* Test Item Value Reference Range Interpretation Comme nts Blood Glucose: mg/dl (test c ode = Blood Glucose: mg/dl) [address] [facility] A1c measurement device [id number] 11:12:11* Test Item Value Reference Range Interpretation Comme [facility] Hemoglobin A1c/Hemoglobin.to lyle in Blood (test code = 4548-4) 7.7 % 4.0-6.[address] [facility] [Mass/volume] in Capillary [id number] 11:05:52* Test Item Value Reference Range Interpretation Comme nts Blood Glucose: mg/dl (test c ode = Blood Glucose: mg/dl) [address] [facility] HospitalPOCT SARS-COV-2 ANTIGEN (BINAX NOW)2023-05-06 17:08:00* Test Item Value Reference Range Interpretation Comme [facility] POCT SARS-COV-2 ANTIGEN (silas t code = 10357-7) Not Detected Not Detected On board controls acceptable with C Line (test code = 3574) Yes Lab Interpretation (test cod e = 42706-6) Normal [facility]23733)(TOTAL CHOLESTEROL, TRIGLYCERIDES, HDL)2022-10-04 16:37:22* Test Item Value Reference Range Interpretation Comme nts CHOL (test code = 6795220513) 179 mg/dL 120-200 HDL (test code = 3368000301) 105 mg/dL >=50 HDLC RATIO (test code = 3736966606) 1.7 <=4.5 TRIG (test code = 7655850143) 58 mg/dL 30-170 LDL CHOL (test code = 97982-8) 62 mg/dL <=160 VLDL (test code = 0233890140) 12 mg/dL 5-60 Lab Interpretation (test cod e = 09364-1) Normal [facility] STIMULATING [id number] 16:32:43 * Test Item Value Reference Range Interpretation Comme nts TSH (test code = 3031074223) 1.45 See_Comment [Automated messa ge] The system which generated this result transmitted reference range: 0.45 - 4.70 mIU/L. The reference range was not used to interpret this result as normal/abnormal. Lab Interpretation (test code = 85452-7) Normal [facility]ATED HEMOGLOBIN (A1C)2022-10-04 15:54:07* Test Item Value Reference Range Interpretation Comme [facility] HGB A1C (test code = 4548-4) 6.7 % 4.0-5.7 H ZAIRA (test code = ZAIRA) Reference RangesNormal: <5.7%Prediabetes: 5.7 - 6.4%Diabetes: > 6.5% Lab Interpretation (test code = 28890-0) Abnormal [facility] device panel 2022-02-05 13:43:31* Test Item Value Reference Range Interpretation Comme nts Hemoglobin A1c/Hemoglobin.to lyle in Blood (test code = 4548-4) 8.2 % 5.7-6.4 [facility]/volume] in Capillary mfyzk5148-33-07 13:39:45* Test Item Value Reference Range Interpretation Comme nts Blood Glucose: mg/dl (test c ode = Blood Glucose: mg/dl) 103 [facility] [Mass/volume] in Capillary [id number] 16:22:01* Test Item Value Reference Range Interpretation Comme nts Blood Glucose: mg/dl (test c ode = Blood Glucose: mg/dl) 107 [facility] PracticeHemoglobin A1c measurement device tdabl4043-44-84 10:43:27* Test Item Value Reference Range Interpretation Comme nts Hemoglobin A1C Fingerstick: (test code = Hemoglobin A1C Fingerstick:) 7.0 [facility] PracticeGlucose [Mass/volume] in Capillary srrzb4620-88-50 10:39:53* Test Item Value Reference Range Interpretation Comme nts Blood Glucose: mg/dl (test c ode = Blood Glucose: mg/dl) [address] [facility] A1c measurement device ivszq9763-25-11 15:03:04* Test Item Value Reference Range Interpretation Comme [facility] Hemoglobin A1C Fingerstick: (test code = Hemoglobin A1C Fingerstick:) 8.[address] [facility]Gl[facility] [Mass/volume] in Capillary uslzp1875-71-56 15:02:56* Test Item Value Reference Range Interpretation Comme [facility] Blood Glucose: mg/dl (test c ode = Blood Glucose: mg/dl) [address] [facility] HospitalENDOMETRIUM,[id number] 16:42:00* Test Item Value Reference Range Interpretation Comme [facility] ENDOMETRIUM,BIOPSY (test code = ENDOMETBX) RUN DATE: 03/09/20 [facility] PAGE 1 RUN TIME: 1751 Specimen Inquiry RUN USER: INTERFACE PATIENT: SIDNEY ROBERTSON LOC: U #: [id number] AGE/SX: 29/ ROOM: [facility] RE03/07/20REG DR: Mikki Scott MD : 88 BED: A DIS: 03/08/20 STATUS: DIS Jack TLOC: SPEC #: [id number] RECD: 03/08/20 STATUS: CHELSEA HAWKINS #: [id number] EARLE: 03/08/20- SUBM DR: Mikik Scott MD ENTERED: 03/08/20 SP TYPE: ENDOMETBX OTHR DR: ORDERED: LEVEL IV CODES: H36467 - ENDOMETRIUM, NO PROCEDURES: LEVEL IV (Incomplete) [...] - no significant pathologic alteration CPT code(s): 11165 x6, 35231 [facility]/wpd CONTINUED ON NEXT PAGE RUN DATE: 03/09/20 [facility] PAGE 2 RUN TIME: 175 Specimen Inquiry RUN USER: INTERFACE SPEC #: [id number] PATIENT: SIDNEY ROBERTSON #[id number] ([facility]) GROSS DESCRIPTION ANATOMIC SOURCE OF TISSUE (per [...] with fimbriae. Sectioning reveals a pinpoint lumen. Ground Equipment Mechanic sections are submitted as follows: CONTINUED ON NEXT PAGE RUN DATE: 03/09/20 [facility] PAGE 3 RUN TIME: 175 Specimen Inquiry RUN USER: INTERFACE SPEC #: [id number] PATIENT: SIDNEY ROBERTSON #[id number] (Continued) GROSS DESCRIPTION (Continued) G1 - serosal adhesions and fatty tissue G2 - anterior cervix G3 - posterior cervix G4 - anterior endometrium G5 - posterior endometrium G6 - right fallopian tube G7 - left fallopian tube michelle 03/08/20 Signed Mariam Aparicio MD 03/09/20 1642 END OF REPORT CBC W/AUTO [id number] 06:58:00* Test Item Value Reference Range Interpretation [...] REQUIRED (test code = PLTMR) NORMAL NORMAL [id number] 06:50:00* Test Item Value Reference Range Interpretation Comme nts GLUBED (test code = GLUBED) 130 mg/dL 65-110 H [id number] 23:39:00* Test Item Value Reference Range Interpretation Comme nts GLUBED (test code = GLUBED) 266 mg/dL 65-110 H [id number] 17:06:00* Test Item Value Reference Range Interpretation Comme nts GLUBED (test code = GLUBED) 219 mg/dL 65-110 H [id number] 14:17:00* Test Item Value Reference Range Interpretation Comme nts GLUBED (test code = GLUBED) 135 mg/dL 65-110 H [id number] 09:59:00* Test Item Value Reference Range Interpretation Comme nts GLUBED (test code = GLUBED) 110 mg/dL 65-110 N AG HEPATITIS B [id number] 14:47:00* Test Item Value Reference Range Interpretation Comme nts AG HEPATITIS B SURFACE (test code = HBSAG) NONREACTIVE NONREACTIVE IS CONSENT FORM SIGNED FOR HIV TESTING? YAB HEPATITIS C [id number] 14:47:00* Test Item Value Reference Range Interpretation Comme nts AB HEPATITIS C (test code = HCVAB) NONREACTIVE NONREACTIVE SIGNAL TO CUTOFF (test code = CUTOFF) 0.09 <0.80 N IS CONSENT FORM SIGNED FOR HIV TESTING? YAB HIV 1 14:47:00* Test Item Value Reference Range Interpretation Comme nts AB HIV 1 2 (test code = VUL71PT) NONREACTIVE NONREACTIVE Done by Siemens Clueyaur 4th Gen HIV Ag/Ab Combo Screen IS CONSENT FORM SIGNED FOR HIV TESTING? YAG HEPATITIS B [id number] 14:15:00* Test Item Value Reference Range Interpretation Comme nts AG HEPATITIS B SURFACE (test code = HBSAG) NONREACTIVE NONREACTIVE IS CONSENT FORM SIGNED FOR HIV TESTING? CHARLENE HEPATITIS C [id number] 14:15:00* Test Item Value Reference Range Interpretation Comme nts AB HEPATITIS C (test code = HCVAB) NONREACTIVE SIGNAL TO CUTOFF (test code = CUTOFF) <0.80 IS CONSENT FORM SIGNED FOR HIV TESTING? ISIDROB HIV 1 14:15:00* Test Item Value Reference Range Interpretation Comme nts AB HIV 1 2 (test code = SWG78LF) NONREACTIVE IS CONSENT FORM SIGNED FOR HIV TESTING? YURINALYSIS [id number] 14:14:00 * Test Item Value Reference Range [...] URINE SAMPLE: CLEAN CATCHCOVID 19 Asymptomatic IH [id number] 13:50:00* Test Item Value Reference Range Interpretation [...] testsfor detection and/or diagnosis of COVID-19 under Jnskyer765(b)(1) of the Act, 21 U.S.C. 360bbb-3(b)(1), unless theauthorization is terminated or revoked sooner. HCG SERUM [id number] 13:43:00* Test Item Value Reference Range Interpretation Comme nts HCG SERUM QUAL (test code = HCGQL) NEGATIVE CBC W/AUTO [id number] 13:22:00* Test Item Value Reference Range Interpretation [...] code = PLTMR) NORMAL NORMAL - DUP AB/PEL/SC/BJL1802-53-97 07:44:00Patient Name: SIDNEY ROBERTSON Unit No: [id number] EXAMS: CPT CODE: [id number] DUP AB/PEL/SC/LTD 31052 CLINICAL HISTORY: Pelvic pain. COMPARISON: August 21, 2017 Real-time ultrasound examination of the p elena was performed using transabdominal and endovaginal approach. [...] Orig Print D/T: S: 11/04/2019 (0747) [facility] NAME: SIDNEY ROBERTSON Radiology Department PHYS: CIARA Jeanine Palm [address] : 1990 AGE: 29 SEX: F [place] [address] LOC: F.RAD PHONE #: [phone] EXAM DATE: 11/04/2019 STATUS:REG CLI FAX #: [phone] RAD NO: Page 1 Signed Report Patient Name: SIDNEY ROBERTSON Unit No:[id number] EXAMS: CPT CODE: [id number] DUP AB/PEL/SC/LTD 66350 (Continued) [facility] NAME: SIDNEY ROBERTSON Radiology Department PHYS: Jeanine Wills [address] : 1990 AGE: 29 SEX: F [place], [place] [address] LOC: F.RAD PHONE #: [phone] EXAM DATE: 11/04/2019 STATUS: REG CLI FAX #: [phone] RAD NO: Page 2 Signed Report- US PELVIS COMPLETE 2019-11-04 07:44:00Patient Name: SIDNEY ROBERTSON Unit No: [id number] EXAMS: CPT CODE: [id number] US PELVIS [id number] CLINICAL HISTORY: Pelvic pain. COMPARISON: August 21, [...] Orig Print D/T: S: 11/04/2019 (0747) [facility] NAME: SIDNEY ROBERTSON Radi ology Department PHYS: Jeanine Wills [address] : 1990 AGE: 29 SEX: F [place], [place] [address] LOC: F.RAD PHONE #: [phone] EXAM DATE: 11/04/2019 STATUS: REG CLI FAX #: [phone] RAD NO: Page 1 Signed Report Patient Name: SIDNEY ROBERTSON Unit No: [id number] EXAMS: CPT CODE: [id number] US PELVIS COMPLETE 92950 (Continued) [facility] NAME: SIDNEY ROBERTSON Radiology Department PHYS: CIARA Jeanine Palm [address] : 1990 AGE: 29 SEX: F [place], [place] [address] LOC: MargarethRAD PHONE #: [phone] EXAM DATE: 11/04/2019 STATUS: REG CLI FAX #: [phone] RAD NO: Page 2 Signed Report- US TRANSVAGINAL W/[id number] 07:44:00Patient Name: SIDNEY ROBERTSON Unit No: [id number] EXAMS: CPT CODE: [id number] US TRANSVAGINAL W/PELVIS 58091 CLINICAL HISTORY: Pelvic pain. COMPARISON: August 21, [...] Palm MD Technologist: Janelle Sam RDMS Probe: [id number] Trnscrbd D/ (0744) Cha Orig Print D/T: S: 11/04/2019 (0747) [facility] NAME: SIDNEY ROBERTSON Radiology Department PHYS: Jeanine Wills [address] : 1990 AGE: 29 SEX: F [place], [place] [address] LOC: MargarethRAD PHONE #: [phone] EXAM DATE: 11/04/2019 STATUS: REG CLI FAX #: [phone] RAD NO: Page 1 Signed Report Patient Name: SIDNEY ROBERTSON Unit No: [id number] EXAMS: CPT CODE: [id number] US TRANSVAGINAL W/PELVIS 78768 (Continued) [facility] NAME: SIDNEY ROBERTSON Radiology Department PHYS: JAILENE.[address] [place], [place] [address]Gwen [address] : 1990 AGE: 29 SEX: F [place], [place] [address] LOC: MargarethRAD PHONE #: [phone] EXAM DATE: 11/04/2019 STATUS: REG CLI FAX #: [phone] RAD NO: Page2 Signed Report Notes Date/Time Note Provider Source 2023-05-06 11:00:00 Patient verbally consented to testing and was provided with the EUA Factsheet: Alonzo Binax COVID 19 antigen test Appropriate PPE worn to collect and run test [facility] 2020-03-08 08:33:00 [facility] Gynecology Post Prog Note REPORT#:[id number] REPORT STATUS: Signed DATE:03/08/20 TIME: 832 PATIENT: SIDNEY ROBERTSON UNIT #: [id number] ROOM/BED: [address] : [birth year] AGE: 29 SEX: F ATTEND: Mikki Scott MD ADM AUTHOR: Mikki Scott MD * ALL edits or amendments must be made on the electronic/computer document * General Post-op: day 1 Status post: RATLHBS, EOE Subjective Comments: Pt tang reg diet. Pain controlled with Tyl#3 but had itching - controlled with Benadryl. Voiding well. Objective General VS/I O: Last Documented: Result Date Time Pulse Ox 97 03/08 0745 B/P 102/68 03/08 0745 B/P Mean 79.3 03/08 745 Temp 97.9 03/08 0745 Pulse 99 03/08 [...] scale Measurement Method Patient Weight Weight (lb): 174 Weight (oz): 2.64 Weight (kg): 79.000 Physical Exam General appearance: alert, awake Wound/incision: Location: abd Site condition: edges approximated, incision intact, no changes in wound, no drainage Abdomen: normal bowel sounds, soft, no distention Results Findings/Data: Laboratory Tests 03/08 03/07 03/07 03/07 03/07 0638 [...] % (Auto) (14.3 - 34.3 %) 15.5 [place] % (Auto) (5.1 - 10.4 %) 7.0 Eos % (Auto) (0.1 - 3.0 %) 1.8 Baso % (Auto) (0.1 - 1.0 %) 0.6 Neut # (Auto) (K/mm3) 7.5 Lymph # (Auto) (K/mm3) 1.6 [place] # (Auto) (K/mm3) 0.7 Eos # (Auto) (K/mm3) 0.18 Baso # (Auto) (K/mm3) 0.1 Diagnosis, Assessment Plan Free Text A P: Doing well. HD stable. Good U/O and GI fxn. Plan: Cont reg diet PO pain meds D/C later Precautions given at 0834 RPT #:[id number] END OF REPORT [facility] 2020-03-07 14:44:00 [id number] [facility] [address] [address] PATIENT NAME: SIDNEY ROBERTSON ADMIT DATE: 03/07/20 ACCOUNT NO: [id number] ROOM NO: F.2646 AGE: 30 SEX: F ADMITTING PHYSICIAN: Mikki Scott MD ATTENDING PHYSICIAN: Mikki Scott MD OPERATION DATE: 03/07/2020 PREOPERATIVE DIAGNOSES: 1. Menorrhagia. 2. History of anemia. 3. Pelvic pain. 4. Dysmenorrhea. 5. Dyspareunia. 6. Dyschezia. POSTOPERATIVE DIAGNOSES: 1. Menorrhagia. 2. History of anemia. 3. Pelvic pain. 4. Dysmenorrhea. 5. Dyspareunia. 6. Dyschezia. 7. Endometriosis. PROCEDURES: 1. Robotically assisted total laparoscopic hysterectomy with bilateral salpingectomy. 2. Robotically assisted laparoscopic excision of endometriosis. SURGEON: Mikki Scott MD HAND WRAPPER OPERATOR: Sina Arambula. ANESTHESIA: General. ESTIMATED BLOOD LOSS: 100 mL. INTRAVENOUS FLUIDS: 700 mL. URINE OUTPUT: 200 mL of clear urine. COMPLICATIONS: None. COUNTS: Correct. FINDINGS: An 8-week size uterus, normal tubes and ovaries bilaterally. Endometrial implants on the left pelvic sidewall, left uterosacral ligament, posterior cervix, right pelvic sidewall and left anterior cul-de-sac. PATIENT NAME: SIDNEY ROBERTSON INDICATIONS: The patient is a 29-year-old 2, para 2, who presents with menorrhagia and anemia. The patient previously required iron transfusions. The patient also reports severe pain with dysmenorrhea, dyspareunia and dyschezia. The patient had symptoms suspicious for endometriosis. Risks, benefits, and alternatives were discussed with the patient. The patient agreed to robotically assisted total laparoscopic hysterectomy with bilateral salpingectomy with possible excision of endometriosis. PROCEDURE IN DETAIL: The patient was taken to the OR with IV in place. She was induced under general anesthesia without difficulty. The patient was given Ancef preoperatively for prophylaxis as well as Lovenox 40 mg subcutaneously for DVT prophylaxis. The patient was placed in dorsal lithotomy position in [facility]. She was prepped and draped in the usual sterile manner. Gillis catheter was placed in bladder sterilely. Anterior lip of the cervix was grasped with single-tooth tenaculum. Uterus was gently sounded to 7 cm. Cervix was gently dilated from size 9 to size [...] was performed. The majority of the right pelvic sidewall was carefully circumscribed and carefully excised with extreme care to avoid injuring ureter. Good hemostasis was noted. Attention was then turned to the left round ligament. The left round ligament was cauterized using bipolar instrument, then divided using monopolar scissors. Left fallopian tube was elevated and mesosalpinx was incised from the fimbriated end to the cornual area. Left utero-ovarian ligament was then cauterized using bipolar instrument, then divided using monopolar scissors. Bladder was then [...] Throughout the case, Sina Arambula acted as first aid teacher. He provided protection and retraction performed suction for visualization. He participated in positioning the patient as well as closure of the wounds. Without his assistance, the surgery could not been performed safely or to adequate accepted medical standards. Therefore, his assistance was considered medically indicated and necessary. Dictated By: Mikki Scott MD WT: OP:DARVIN/JERRY./NTS PATIENT NAME: SIDNEY ROBERTSON Conf#: [id number]/DID#: [id number] Authenticated and Edited by Mikki Scott MD On 03/18/20 11:59:49 AM at 1204 PATIENT NAME: SIDNEY ROBERTSON [facility] 2020-03-06 14:25:00 3182-3538 [place] [address] PATIENT NAME: SIDNEY ROBERTSON ADMIT DATE: 03/07/20 ACCOUNT NO: [id number] ROOM NO: [facility] AGE: 29 SEX: F ADMITTING PHYSICIAN: Mikki Scott MD ATTENDING PHYSICIAN: Mikki Scott MD Order: [id number] Test Reason : PRE-OP (03/07/2020) Test Date/Time Stamp: FriMar 06 2020 14:25:44 Blood Pressure : / mmHG Vent. Rate : 078 BPM Atrial Rate : 078 BPM P-R Int : 146 ms QRS Dur : 086 ms QT Int : 386 ms P-R-T Axes : 062 090 058 degrees QTc Int : 440 ms Normal sinus rhythm Rightward axis Borderline ECG No previous ECGs available Confirmed by JESSENIA GOODE MD ([id number]) on 03/07/2020 7:46:28 PM Referred By: Mikki Scott Confirmed by:JESSENIA GOODE MD at 6676 PATIENT NAME: SIDNEY ROBERTSON [facility]
[2024-07-28] MEDS ORDERED: NA CHLORIDE 0.9% 1,000 ML ONE (12:30)
[2024-07-28] MEDS ORDERED: ONDANSETRON 4 MG/2 ML VIAL ONE (12:43)
[2024-07-28 12:45] LABS: Absolute Eosinophils 0.1 K/uL (0-0.5); Absolute Lymphocytes (CBC) 1.1 K/uL (0.7-4.9); Absolute Monocytes 0.3 K/uL (0.1-1.3); Absolute Neutrophil 5.6 K/uL (1.8-8.0); Basophils % 0.4 % (0-1.3); Eosinophils % 0.8 % (0-4.4); Hematocrit 39.7 % (36.0-45.0); Hemoglobin 13.7 g/dL (12.0-15.0); Lymphocytes % 15.7 % (15.3-44.8); MCH 31.3 pg (27.0-35.0); MCHC 34.6 g/dL (32.0-36.0); MCV 90.5 fL (80-100); MPV 11.4 fL (7.6-11.3); Monocytes % 4.7 % (3.3-12.3); Neutrophils % 78.4 % (41.7-73.7); Platelets 154 thou/uL (152-406); RBC Red Blood Cell Count 4.38 M/uL (3.86-4.86); Red Cell Distribution Width 12.5 % (12.1-15.2)
[2024-07-28 13:23] LABS: ALT/SGPT 20 U/L (13-56); Albumin 3.7 g/dL (3.4-5.0); Albumin/Globulin Ratio 1.1 (1.1-1.8); Alkaline Phosphatase 117 U/L (45-117); BETA HYDROXYBUTYRATE 0.28 mmol/L (0.02-0.27); BUN Blood Urea Nitrogen 17 mg/dL (7-18); Bicarbonate 27 mEq/L (21-32); Bilirubin Total 0.4 mg/dL (0.2-1.0); Globulin 3.3 g/dL (2.3-3.5); Glomerular Filtration Rate 96 ml/min (=/>90); Glucose Level 372 mg/dL (74-106); Lipase 35 U/L (13-75); Phosphorus 2.6 mg/dL (2.5-4.9); Sodium Level 134 mEq/L (136-145)
[2024-07-28 13:29] LABS: AST/SGOT < 10 U/L (15-37); Bilirubin Direct < 0.2 mg/dL (0-0.2); Bilirubin Indirect, Calculated 0.2 mg/dL (0.2-0.8)
[2024-07-28] MEDS ORDERED: INSULIN REGULAR (HUMAN) 100 UNIT/ML ONE (14:09)
--- NOTE | 2024-07-28 14:32 | EDPHYS ---
Physician Documentation [facility] Name: Lilibeth Sharif Age: 34 yrs Sex: Female : 1990 Arrival Date: 07/28/2024 Time: 11:51 Bed 7 Private MD: ED Physician David Torres HPI: 07/28 14:46 This 34 yrs old Female presents to ER via Ambulatory with complaints of High ms3 Blood Sugar. 14:46 34-year-old female with past medical history of diabetes, SVT presents to the emergency ms3 department for elevated blood glucose levels. Patient states her insulin pump stopped working yesterday and she is given herself long-acting and short acting insulin as prescribed. Patient states her glucometer continues to read high. Patient endorses nausea and vomiting.. 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 - Infectious Disease History:: Denies. - Social history:: Smoking status: Patient denies any tobacco usage or history of. ROS: 14:46 Constitutional: Negative for fever, and chills. Cardiovascular: Negative for chest ms3 pain, and palpitations. Respiratory: Negative for shortness of breath, cough, wheezing, and pleuritic chest pain, 14:46 MS/Extremity: Negative for injury and deformity, Skin: Negative for injury, rash, and discoloration, 14:46 Abdomen/GI: Positive for nausea, vomiting, Exam: 14:46 Constitutional: This is a well developed, well nourished patient who is awake, alert, ms3 and in no acute distress. Cardiovascular: Regular rate and rhythm with a normal S1 and S2. No gallops, murmurs, or rubs. Normal PMI, no JVD. No pulse deficits. Respiratory: Lungs have equal breath sounds bilaterally, clear to auscultation and percussion. No rales, rhonchi or wheezes noted. No increased work of breathing, no retractions or nasal flaring. Abdomen/GI: Soft, non-tender, with normal bowel sounds. No distension or tympany. No guarding or rebound. No evidence of tenderness throughout. Skin: Warm, dry with normal turgor. Normal color with no rashes, no lesions, and no evidence of cellulitis. MS/ Extremity: Pulses equal, no cyanosis. Neurovascular intact. Full, normal range of motion. Neuro: Awake and alert, GCS 15, oriented to person, place, time, and situation. Cranial nerves II-XII grossly intact. Motor strength 5/5 in all extremities. Sensory grossly intact. Cerebellar exam normal. Normal gait. 16:08 ECG was reviewed by the Attending Physician. ms3 Vital Signs: 12:17 BP 134 / 92; Pulse 92; Resp 18; Temp 98.1; Pulse Ox 99% ; Weight 83.91 kg; Height 5 ft. iw 3 in. ; 14:27 BP 100 / 63; Pulse 83; Resp 18; Pulse Ox 100% on R/A; cm10 15:00 BP 102 / 66; Pulse 81; Resp 15; Pulse Ox 97% on R/A; cm10 12:17 Body Mass Index 32.77 (83.91 kg, 160.02 cm) iw MDM: 12:04 Medical Screening Exam initiated ms3 14:46 Differential diagnosis: DKA, hyperglycemia, Nausea and vomiting. Data reviewed: vital ms3 signs, nurses notes, lab test result(s), and as a result, I will discharge patient. Consideration of Admission/Observation Escalation of care including admission/observation considered. Patient GAP is 4 and inconsistent with DKA. I considered the following discharge prescriptions or medication management in the emergency department Medications were administered in the Emergency Department. See MAR. Counseling: I had a detailed discussion with the patient and/or guardian regarding the historical points, exam findings, and any diagnostic results supporting the discharge/admit diagnosis, lab results, the need for outpatient follow up, to return to the emergency department if symptoms worsen or persist or if there are any questions or concerns that arise at home. Special discussion: I discussed with the patient/guardian in detail that at this point there is no indication for admission to the hospital. It is understood, however, that if the symptoms persist or worsen the patient needs to return immediately for re-evaluation. ED course: On reevaluation patient symptoms improved, patient is alert and oriented x 4, no apparent distress, nontoxic-appearing, speaking full sentences. Patient's blood sugar has decreased since arrival to the emergency department and patient's symptoms have improved. Patient to follow-up with her primary care physician in 1 to 2 days. Patient understands and agrees with plan. All questions were answered. Return precautions discussed include worsening symptoms, or any other concerns. 07/28 11:58 Order name: CBC with Diff; Complete Time: 13:30 ms3 07/28 12:23 Order name: BETA HYDROXYBUTYRATE; Complete Time: 13:30 ms3 07/28 12:23 Order name: Hepatic Function; Complete Time: 13:30 ms3 07/28 12:23 Order name: Lipase; Complete Time: 13:30 ms3 07/28 12:23 Order name: Phosphorus; Complete Time: 13:30 ms3 07/28 12:45 Order name: Basic Metabolic Panel; Complete Time: 13:30 EDMS 07/28 14:19 Order name: Glucose, Ancillary Testing; Complete Time: 14:30 EDMS 07/28 15:17 Order name: Glucose, Ancillary Testing; Complete Time: 15:19 EDMS 07/28 12:23 Order name: EKG; Complete Time: 12:24 ms3 07/28 12:23 Order name: Cardiac monitoring; Complete Time: 14:23 ms3 07/28 12:23 Order name: EKG - Nurse/Tech; Complete Time: 14:23 ms3 07/28 12:23 Order name: IV Saline Lock; Complete Time: 14:23 ms3 07/28 12:23 Order name: NPO; Complete Time: 14:23 ms3 07/28 12:23 Order name: O2 Per Protocol; Complete Time: 14:23 ms3 07/28 12:23 Order name: O2 Sat Monitoring; Complete Time: 14:23 ms3 EC:08 Rate is 77 beats/min. Rhythm is regular. Right axis deviation noted. NC interval is ms3 normal. QRS interval is normal. Clinical impression: NSR w/ Non-specific ST/T Changes. Interpreted by me. Reviewed by me. Administered Medications: 12:43 Drug: NS 0.9% IV 1000 ml IV at 1000 ml once; to be given as a bolus over 60 minutes ll1 Route: IV; Rate: 1000 ml; Site: right antecubital; 15:24 Follow up: Response: No adverse reaction; IV Status: Completed infusion; IV Intake: cm10 1000ml 12:50 Drug: Ondansetron IVP 4 mg IVP once; over 2 minutes Route: IVP; Site: right antecubital;iw 15:24 Follow up: Response: No adverse reaction cm10 14:15 Drug: Insulin Regular Human Sub-Q 10 units Sub-Q once {Co-Signature: rebecca (steve Beaulieu RN).} Route: Sub-Q; Site: abdomen; 15:24 Follow up: Response: No adverse reaction cm10 Disposition Summary: 07/28/24 14:31 Discharge Ordered Notes: Location: Home ms3 Condition: Stable ms3 Diagnosis - Type 1 diabetes mellitus with hyperglycemia ms3 - Nausea with vomiting, unspecified ms3 Followup: ms3 - With: Private Physician - When: 1 - 2 days - Reason: Recheck today's complaints Discharge Instructions: - Discharge Summary Sheet ms3 - Nausea and Vomiting, Adult ms3 - Hyperglycemia, [id number] ms3 Forms: - Medication Reconciliation Form ms3 - Antibiotic Education ms3 - Prescription Opioid Use ms3 - Patient Portal Instructions ms3 - Leadership Thank You Letter ms3 Prescriptions: - ondansetron 4 mg Oral Tablet,disintegrating - take 1 tablet ORAL route every 8 hours as needed for nausea and vomiting; 15 ms3 tablet; Refills: 0, Product Selection Permitted Signatures: Dispatcher [employer] Mariella Doll RN RN iw Prasanth Alvarado RN RN ll1 David Torres DO DO ms3 Tahira Solitario RN RN cm10 Rowan Beaulieu RN Corrections: (The following items were deleted from the chart) 11:58 11:58 CBC+H.LAB.BRZ ordered. EDMS EDMS 12:44 11:58 BASIC METABOLIC PANEL+C.LAB.BRZ ordered. EDMS EDMS
--- NOTE | 2024-07-28 14:32 | ER ---
Nurse's Notes [facility] Name: Lilibeth Sharif Age: 34 yrs Sex: Female : 1990 Arrival Date: 07/28/2024 Time: 11:51 Bed 7 Private MD: Diagnosis: Type 1 diabetes mellitus with hyperglycemia;Nausea with vomiting, unspecified Presentation: 07/28 12:17 Chief complaint: Patient states: my insulin pump went out yesterday at 4pm and i have iw not been able to get it down. Coronavirus screen: At this time, the client does not indicate any symptoms associated with coronavirus-19. Ebola Screen: No symptoms or risks identified at this time. Initial Sepsis Screen: Does the patient meet any 2 criteria? No. Patient's initial sepsis screen is negative. Does the patient have a suspected source of infection? No. Patient's initial sepsis screen is negative. Risk Assessment: Do you want to hurt yourself or someone else? Patient reports no desire to harm self or others. 12:17 Method Of Arrival: Ambulatory iw 12:17 Acuity: JAMISON 3 iw 12:17 Onset of symptoms was July 28, 2024. 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 - Infectious Disease History:: Denies. - Social history:: Smoking status: Patient denies any tobacco usage or history of. Screenin:29 [facility] ED Fall Risk Assessment (Adult) History of falling in the last 3 months, cm10 including since admission No falls in past 3 months (0 pts) Confusion or Disorientation No (0 pts) Intoxicated or Sedated No (0 pts) Impaired Gait No (0 pts) Mobility Assist Device Used No (0 pt) Altered Elimination No (0 pt) Score/Fall Risk Level 0 - 2 = Low Risk Oriented to surroundings, Maintained a safe environment, Hourly rounding (assess needs \T\ fall precautionary measures) done. Abuse screen: Denies threats or abuse. Denies injuries from another. Nutritional screening: No deficits noted. Tuberculosis screening: No symptoms or risk factors identified. Assessment: 14:28 General: Appears in no apparent distress. comfortable, Behavior is calm, cooperative. cm10 Pain: Denies pain. Neuro: No deficits noted. Level of Consciousness is awake, alert, obeys commands, Oriented to person, place, time, situation, Appropriate for age. Respiratory: No deficits noted. Airway is patent Respiratory effort is even, unlabored, Respiratory pattern is regular, symmetrical. GI: Reports nausea. 15:38 Reassessment: Patient appears in no apparent distress at this time. Patient and/or cm10 family updated on plan of care and expected duration. Pain level reassessed. Patient is alert, oriented x 3, equal unlabored respirations, skin warm/dry/pink. Vital Signs: 12:17 BP 134 / 92; Pulse 92; Resp 18; Temp 98.1; Pulse Ox 99% ; Weight 83.91 kg; Height 5 ft. iw 3 in. ; 14:27 BP 100 / 63; Pulse 83; Resp 18; Pulse Ox 100% on R/A; cm10 15:00 BP 102 / 66; Pulse 81; Resp 15; Pulse Ox 97% on R/A; cm10 12:17 Body Mass Index 32.77 (83.91 kg, 160.02 cm) iw ED Course: 11:53 Patient arrived in ED. al6 11:56 David Torres DO is Attending Physician. ms3 12:17 Triage completed. iw 12:18 Arm band placed on. iw 13:46 Tahira Solitario, RN is Primary Nurse. cm10 14:29 Patient has correct armband on for positive identification. Bed in low position. Call cm10 light in reach. Side rails up X 1. Client placed on continuous cardiac and pulse oximetry monitoring. NIBP monitoring applied. lunchroom monitor on. 14:29 EKG done, by ED staff, reviewed by David Torres DO. Inserted saline lock: 22 gauge in cm10 right antecubital area, using aseptic technique. Blood collected. Flushed with 10 mL NS. 15:38 Provided Education on: follow-up instructions. cm10 15:38 No provider procedures requiring assistance completed. IV discontinued, intact, cm10 bleeding controlled, No redness/swelling at site. Pressure dressing applied. Administered Medications: 12:43 Drug: NS 0.9% IV 1000 ml IV at 1000 ml once; to be given as a bolus over 60 minutes ll1 Route: IV; Rate: 1000 ml; Site: right antecubital; 15:24 Follow up: Response: No adverse reaction; IV Status: Completed infusion; IV Intake: cm10 1000ml 12:50 Drug: Ondansetron IVP 4 mg IVP once; over 2 minutes Route: IVP; Site: right antecubital;iw 15:24 Follow up: Response: No adverse reaction cm10 14:15 Drug: Insulin Regular Human Sub-Q 10 units Sub-Q once {Co-Signature: rebecca (steve Beaulieu RN).} Route: Sub-Q; Site: abdomen; 15:24 Follow up: Response: No adverse reaction cm10 Medication: 14:29 VIS not applicable for this client. cm10 Intake: 15:24 IV: 1000ml; Total: 1000ml. cm10 Outcome: 14:31 Discharge ordered by MD. ms3 15:38 Discharged to home ambulatory, cm10 15:38 Condition: good 15:38 Discharge instructions given to patient, Instructed on discharge instructions, follow up and referral plans. medication usage, Demonstrated understanding of instructions, follow-up care, medications, Prescriptions given X 1, 15:38 Patient left the ED. cm10 Signatures: Mariella Doshi RN RHONDA Prasanth Alvarado RN RHONDA ll1 David Torres DO DO ms3 Tahira Solitario RN RN cm10 Fawn Medrano al6 Rowan Beaulieu RN Corrections: (The following items were deleted from the chart) 12:18 12:17 BP 134 / 92; Pulse 92bpm; Resp 18bpm; Pulse Ox 99%; Temp 98.1F; iw iw
[2024-07-28 16:00] VITALS: TEMP 98.1
[2024-07-28 16:04] VITALS: BP 102/66; O2SAT 97
--- NOTE | 2024-07-29 11:48 | EKG ---
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
== END 2024-07-28 15:38 | disposition home or self-care (01) ==
LOC: ER 11:51
DX: E10.65 Type 1 diabetes mellitus with hyperglycemia (principal); Z79.4 Long term (current) use of insulin; Z96.41 Presence of insulin pump (external) (internal)
CPT/HCPCS: 85025; 80048; 36415; 84100; 82947 ×2; 80076; 83690; 82010; J2405; J1815; J7030; 93005